=== PATIENT | male | born 1960 | race Caucasian/White ===

== ENCOUNTER 2017-12-29 11:37 | Emergency (ER) | payer OTHER ==
[~2017-12-29] VITALS: Ht 185.4 cm; Wt 123.0 kg
[~2017-12-29 11:37] MED LIST: ALLO300T2 PO; ATOR-24 PO; CALCTAB7 PO; CHOL100010 PO; DIVA500T5 PO; DLN/100 PO; DOCU100C31 PO; FURO-85 PO; MULT-506 PO; OXYC1TAB3 PO; POTA-639 PO; TOPI200T6 PO; WARF5TAB90 PO
[2017-12-29 11:45] VITALS: TEMP 37; Ht 185.4 cm; Wt 123.0 kg
[2017-12-29] MEDS ORDERED: ACETAMINOPHEN 325 MG TAB PO STA (12:14)
[2017-12-29] MEDS ORDERED: CHOL100010 PO (12:38)
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
[2017-12-29] MEDS ORDERED: WARF-246 PO (12:42)
[2017-12-29 13:04] LABS: BASO % 0.2 %; BASO ABS # 0.02 K/uL (0-0.2); EOS ABS # 0.09 K/uL (0-0.5); HEMATOCRIT 43.2 % (42-52); HEMOGLOBIN 16.1 g/dL (14.0-18.0); IG# 0.03 K/uL (0.00-0.02); LYMPH % 28.4 %; LYMPH ABS # 2.64 K/uL (1.2-3.4); MEAN CELL VOLUME 94.1 fL (80-100); MEAN CORPUSCULAR HEMOGLOBIN 35.1 pg (25-34); MEAN CORPUSCULAR HGB CONC 37.3 g/dl (32-36); MEAN PLATELET VOLUME 9.5 fL (7.4-10.4); MONO % 11.2 %; MONO ABS # 1.04 K/uL (0.11-0.59); NEUT % 58.9 %; NEUT ABS # 5.49 K/uL (1.4-6.5); PLATELET COUNT 108 K/uL (130-400); RED CELL DISTRIBUTION WIDTH CV 14.5 % (11.5-14.5); RED CELL DISTRIBUTION WIDTH SD 48.8 fL (36.4-46.3); WHITE BLOOD COUNT 9.31 K/uL (4.8-10.8)
[2017-12-29 13:22] LABS: CREATININE 0.97 mg/dl (0.60-1.40)
[2017-12-29 13:23] LABS: ALBUMIN 3.5 gm/dl (3.4-5.0); CALCIUM 8.4 mg/dl (8.5-10.1); POTASSIUM 3.7 mmol/L (3.5-5.1); TOTAL PROTEIN 6.5 gm/dl (6.4-8.2)
--- NOTE | 2017-12-29 14:02 | DIAGNOSTIC IMAGING REPORT ---
CT OF THE ABDOMEN AND PELVIS WITHOUT CONTRAST, STONE PROTOCOL CLINICAL HISTORY: Single kidney, hematuria, on coumadin, urinary symptoms. COMPARISON STUDY: CT of the abdomen and pelvis August 18, 2014 and KUB October 31, 2014. TECHNIQUE: Helical axial images of the abdomen and pelvis were obtained without IV or oral contrast according to renal stone protocol. A dose lowering technique was utilized adhering to the principles of ALARA. FINDINGS: Right lower lung subpleural opacity is unchanged since CT of August 18, 2014 and favors scarring. Note is made of a 4 mm calculus within the lower pole of the left kidney. There are are no ureteral calculi. There is no hydronephrosis. There is minimal left perinephric and periureteral infiltration. There is no evidence for a bowel obstruction. Evaluation of the abdomen and pelvis is suboptimal on this unenhanced exam. The appendix is normal. No abdominal or pelvic lymphadenopathy is present. The right kidney is surgically absent. There is no abnormality within the nephrectomy bed. A 1.4 cm lesion arising from the mid to lower pole of the left kidney measures just above water attenuation. Unenhanced images of liver, spleen, adrenal glands and pancreas are normal. Mild bladder wall thickening is noted. IMPRESSION: 1. 4 mm left renal calculus. No ureteral calculi or hydronephrosis. Minimal left perinephric and periureteral infiltration is nonspecific. Differential constrictions include a recently passed calculus or an infectious process. Findings could be correlated with urinalysis. 2. 1.4 cm left renal lesion which measures just above water attenuation. This is likely benign however a follow-up nonemergent renal ultrasound is recommended. 3. Status post right nephrectomy. No abnormality within the nephrectomy bed. Electronically signed by: Omari Foreman M.D. 12/29/2017 2:00 PM Dictated Date/Time: 12/29/2017 1:50 PM
[2017-12-29] MEDS ORDERED: OXYC1TAB3 PO ×2 (14:09→14:26)
[2017-12-29] MEDS ORDERED: TAMS0.4C38 PO ×3 (14:09→14:29)
[2017-12-29 14:32] VITALS: BP 135/81; PULSE 88; O2SAT 97
--- NOTE | 2017-12-31 15:52 | Pharmacy Progress Note ---
ED Pharmacist Culture FollowUp Date of Service: December 31, 2017. Called patient regarding urine culture throughout the day, received busy signals @ [phone]. Will attempt to call again. Plan to call in prescription for keflex 500 mg BID x 7 days to pharmacy of patient's preference. Case discussed with Dr. Enamorado, who is the prescribing provider.
== END 2017-12-29 14:35 | disposition home or self-care (01) ==
LOC: C.EDB 11:39 → C.EDA 14:35
DX: N20.0 Calculus of kidney (principal); R79.1 Abnormal coagulation profile; D69.6 Thrombocytopenia, unspecified; R03.0 Elevated blood-pressure reading, without diagnosis of hypertension; M79.89 Other specified soft tissue disorders; R73.03 Prediabetes; Z90.5 Acquired absence of kidney; Z79.01 Long term (current) use of 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s; Z86.718 Personal history of other venous thrombosis and embolism; Z79.899 Other long term (current) drug therapy; Z88.6 Allergy status to analgesic agent

== ENCOUNTER 2019-09-26 14:26 | Inpatient (IN) ==
[2019-09-26] MEDS ORDERED: ACETAMINOPHEN 1,000 MG/100 ML VIAL IV STA ×2 (14:43→17:21)
[2019-09-26] MEDS ORDERED: SODIUM CHLORIDE 0.9% 1000ML 1,000 ML IV SCH (14:45)
--- NOTE | 2019-09-26 15:07 | Emergency Department Note ---
History of Present Illness General Chief complaint: Lethargic Stated complaint: COUGHING UP GREEN PHLEM, LETHARGIC, DARK URINE Time Seen by Provider: 09/26/19 14:34 History of Present Illness Maximum Pain Intensity: 5 This 58-year-old male presents the ER with family members with chief complaint of confusion, cough. The family member states that the patient started with coughing on Saturday but did not have any fever or body aches. Yesterday he was seen at [facility] since they thought that his mental status had slightly changed and his cough was worse. They told him that it was viral. They did not do any testing. Today the symptoms have gotten worse. He is more confused. He is still coughing up green phlegm. He denies any ear pain or sore throat. The patient does admit to some dysuria and frequency of urination. He denies any hematuria. The patient needed the help of both his family members in order to get into the car to come to the emergency room. Home Medications Home Medications Medication Instructions Recorded Confirmed Type allopurinol 150 mg PO DAILY 09/26/19 09/26/19 History atorvastatin 80 mg PO DAILY 09/26/19 09/26/19 History divalproex 1,000 mg PO BID 09/26/19 09/26/19 History divalproex 500 mg PO DAILY@1500 09/26/19 09/26/19 History furosemide 20 mg PO DAILY 09/26/19 09/26/19 History linagliptin [Tradjenta] 5 mg PO DAILY 09/26/19 09/26/19 History multivitamin [Tab-A-Rory] 1 tab PO DAILY 09/26/19 09/26/19 History phenytoin sodium extended 400 mg PO BID 09/26/19 09/26/19 History [Dilantin Extended] potassium chloride 20 meq PO DAILY 09/26/19 09/26/19 History topiramate 200 mg PO BID 09/26/19 09/26/19 History warfarin 5 mg PO UD 09/26/19 09/26/19 History Allergies Allergy/AdvReac Type Severity Reaction Status Date / Time indomethacin AdvReac Severe SEIZURE Verified 09/26/19 14:52 Past Med/Surg History Medical History (Updated 09/26/19 @ 17:28 by Vero Craig) 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 (Inactive) Seizures (Inactive) Surgical History (Updated 09/26/19 @ 15:02 by Vero Craig) Hx of knee surgery Social History Preferred Language: Bulgarian Feels Safe at Home: Yes Smoking Status: Never smoker Review of Systems A total of 10 systems reviewed and were otherwise negative Physical Exam Vital Signs Vital Signs - 24 hr 09/26/19 14:29 09/26/19 14:54 Temperature 37.1 C Temperature Source Oral Pulse Rate 100 H Respiratory Rate 16 Respiratory Effort / Characteristics Non-Labored Spontaneous Respiratory Depth Normal Blood Pressure 158/94 H Blood Pressure Mean 115 Blood Pressure Position Sitting Pulse Oximetry 98 97 Oxygen Delivery Method Room Air Room Air Sepsis Recent Fever Within 48 Hours No Sepsis New/Unexplained Change in Mental Status No Sepsis Action Taken by Nursing No Action Required PHYSICAL EXAM: Vital Signs were reviewed: Reviewed Nurse's notes and agree. Oxygen saturation is 98 % on room air which is normal . GENERAL: 58-year-old male appears lethargic but in no acute distress. MENTAL STATUS: Patient appears very lethargic and only answers questions intermittently EARS: Canals clear. TMs good light reflex, no erythema or fluid level noted. NOSE: Nasal mucosa with moderate erythema engorgement. PHARYNX: No erythema, no edema noted. No exudate noted. Airway is adequate. SINUSES: Patient is tender to palpation over the maxillary sinuses, frontal nontender. NECK: Supple, non-tender. No lymphadenopathy noted. LUNGS: Clear to auscultation without wheezes rales or rhonchi. CARDIAC: Regular rate and rhythm without murmur. ABDOMEN: Positive bowel sounds all 4 quadrants soft, generalized tenderness to palpation throughout. No organomegaly or masses noted. SKIN: No rashes noted. Course Administered Medications Discontinued Medications Sodium Chloride (Nss 1000ml) 1,000 mls @ 999 mls/hr IV .Q1H1M SUSANA Stop: 09/26/19 15:45 Last Infusion: 09/26/19 16:47 Dose: 0 mls/hr Documented by: [id number] Admin: 09/26/19 15:44 Dose: 999 mls/hr Documented by: [id number] Acetaminophen (Ofirmev) 1,000 mg in 100 mls @ 400 mls/hr IV NOW STA Stop: 09/26/19 14:57 Last Infusion: 09/26/19 16:05 Dose: 0 mls/hr Documented by: [id number] Admin: 09/26/19 15:44 Dose: 400 mls/hr Documented by: [id number] Medical Decision Making Differential Diagnosis UTI, pyelonephritis, sepsis, influenza Medical Records Attestation: I reviewed the patient's medical records. Home Medications Current Medication List: was personally reviewed by me Laboratory Data Attestation: I reviewed the patient's lab results. Result diagrams: 09/26/19 15:30 09/26/19 15:30 Lab Results 09/26/19 09/26/19 09/26/19 Range/Units 15:00 15:30 15:30 WBC 9.13 (4.8-10.8) K/uL RBC 4.46 L (4.7-6.1) M/uL Hgb 15.6 (14.0-18.0) g/dL Hct 43.1 (42-52) % MCV 96.6 (80-100) fL MCH 35.0 H (25-34) pg MCHC 36.2 H (32-36) g/dL RDW Std Deviation 49.6 H (36.4-46.3) fL RDW Coeff of Pepper 14.1 (11.5-14.5) % Plt Count 104 L (130-400) K/uL MPV 9.9 (7.4-10.4) fL Immature Gran % (Auto) 0.4 % Neut % (Auto) 68.0 % Lymph % (Auto) 20.5 % [place] % (Auto) 10.2 % Eos % (Auto) 0.7 % Baso % (Auto) 0.2 % Immature Gran # (Auto) 0.04 H (0.00-0.02) K/uL Neut # (Auto) 6.21 (1.4-6.5) K/uL Lymph # (Auto) 1.87 (1.2-3.4) K/uL [place] # (Auto) 0.93 H (0.11-0.59) K/uL Eos # (Auto) 0.06 (0-0.5) K/uL Baso # (Auto) 0.02 (0-0.2) K/uL Sodium 139 (136-145) mmol/L Potassium 3.9 (3.5-5.1) mmol/L Chloride 111 H (98-107) mmol/L Carbon Dioxide 22 (21-32) mmol/L Anion Gap 6.0 (3-11) BUN 15 (7-18) mg/dl Creatinine 1.13 (0.6-1.4) mg/dl Est Cr Clr Drug Dosing Not Reportable Est GFR ( Amer) 81.4 Est GFR (Non-Af Amer) 70.3 BUN/Creatinine Ratio 12.9 (10-20) Glucose 315 H* (70-99) mg/dl Lactate Calcium 8.5 (8.5-10.1) mg/dl Total Bilirubin 0.3 (0.2-1) mg/dl AST 16 (15-37) U/L ALT 23 (12-78) U/L Alkaline Phosphatase 100 (45-117) U/L Total Protein 7.0 (6.4-8.2) gm/dl Albumin 3.2 L (3.4-5.0) gm/dl Globulin 3.8 (2.5-4.0) gm/dl Albumin/Globulin Ratio 0.8 L (0.9-2) Beta-Hydroxybutyric Acd (0.2-2.81) mg/dl Specimen Hemolysis Urine Color Urine Appearance (Clear) Urine pH (4.5-7.5) Ur Specific [place] (1.000-1.030) Urine Protein (Negative) Urine Glucose (UA) (Negative) Urine Ketones (Negative) Urine Blood (Negative) Urine Nitrite (Negative) Urine Bilirubin (Negative) Urine Urobilinogen (Negative) Ur Leukocyte Esterase (Negative) Urine WBC (Auto) (0-5) /hpf Urine RBC (Auto) (0-4) /hpf U Hyaline Cast (Auto) (0-5) /lpf U Epithel Cells (Auto) (0-5) /lpf Urine Bacteria (Auto) (Negative) Influenza Type A Ag Neg for Influ A (Neg) Influenza Type B Ag Neg for Influ B (Neg) 09/26/19 09/26/19 Range/Units 15:53 Unknown WBC (4.8-10.8) K/uL RBC (4.7-6.1) M/uL Hgb (14.0-18.0) g/dL Hct (42-52) % MCV (80-100) fL MCH (25-34) pg MCHC (32-36) g/dL RDW Std Deviation (36.4-46.3) fL RDW Coeff of Pepper (11.5-14.5) % Plt Count (130-400) K/uL MPV (7.4-10.4) fL Immature Gran % (Auto) % Neut % (Auto) % Lymph % (Auto) % [place] % (Auto) % Eos % (Auto) % Baso % (Auto) % Immature Gran # (Auto) (0.00-0.02) K/uL Neut # (Auto) (1.4-6.5) K/uL Lymph # (Auto) (1.2-3.4) K/uL [place] # (Auto) (0.11-0.59) K/uL Eos # (Auto) (0-0.5) K/uL Baso # (Auto) (0-0.2) K/uL Sodium (136-145) mmol/L Potassium (3.5-5.1) mmol/L Chloride (98-107) mmol/L Carbon Dioxide (21-32) mmol/L Anion Gap (3-11) BUN (7-18) mg/dl Creatinine (0.6-1.4) mg/dl Est Cr Clr Drug Dosing Est GFR ( Amer) Est GFR (Non-Af Amer) BUN/Creatinine Ratio (10-20) Glucose (70-99) mg/dl Lactate Cancelled Calcium (8.5-10.1) mg/dl Total Bilirubin (0.2-1) mg/dl AST (15-37) U/L ALT (12-78) U/L Alkaline Phosphatase (45-117) U/L Total Protein (6.4-8.2) gm/dl Albumin (3.4-5.0) gm/dl Globulin (2.5-4.0) gm/dl Albumin/Globulin Ratio (0.9-2) Beta-Hydroxybutyric Acd (0.2-2.81) mg/dl Specimen Hemolysis Urine Color Yellow Urine Appearance Clear (Clear) Urine pH 8.0 H (4.5-7.5) Ur Specific [place] 1.020 (1.000-1.030) Urine Protein 2+ H (Negative) Urine Glucose (UA) 3+ H (Negative) Urine Ketones Negative (Negative) Urine Blood Negative (Negative) Urine Nitrite Negative (Negative) Urine Bilirubin Negative (Negative) Urine Urobilinogen Negative (Negative) Ur Leukocyte Esterase Negative (Negative) Urine WBC (Auto) 0 (0-5) /hpf Urine RBC (Auto) 0-4 (0-4) /hpf U Hyaline Cast (Auto) 1-5 (0-5) /lpf U Epithel Cells (Auto) 0-5 (0-5) /lpf Urine Bacteria (Auto) Negative (Negative) Influenza Type A Ag (Neg) Influenza Type B Ag (Neg) Imaging Data Attestation: I personally reviewed and interpreted this imaging study as follows: My Impression: Chest x-ray revealed no acute infiltrate CT the head revealed no acute intracranial abnormality Radiologist's Impression: XR chest 1V portable CLINICAL HISTORY: Altered mental status/cough COMPARISON STUDY: 10/28/2014 FINDINGS: The bones soft tissues and hemidiaphragms are normal. The cardiomediastinal silhouette is normal. The lungs are clear. The pulmonary vasculature is normal. Poor inspiratory volumes creating some crowding of the basilar lung markings IMPRESSION: Negative chest. ACT 112: Negative or not required by law. The above report was generated using voice recognition software. It may contain grammatical, syntax or spelling errors. Electronically signed by: Og Craig M.D. 09/26/2019 4:04 PM Dictated: 09/26/19 1603 Transcribed: 09/26/[address] head/brain wo con CT DOSE: 2160.68 mGy.cm HISTORY: Mental status change Altered mental status TECHNIQUE: Multiaxial CT images of the head were performed without the use of intravenous contrast. A dose lowering technique was utilized adhering to the principles of ALARA. Comparison: None. Findings: The paranasal sinuses and mastoid air cells are clear. The calvarium and skull base are intact. The ventricles and sulci are within normal limits. There is no mass, hematoma, midline shift, or acute infarct. Impression: No acute intracranial abnormality. ACT 112: Negative or not required by law. The above report was generated using voice recognition software. It may contain grammatical, syntax or spelling errors. Electronically signed by: Og Craig M.D. 09/26/2019 4:51 PM Blood Pressure Blood Pressure Findings: Elevated blood pressure Blood Pressure Disposition: elevated BP felt to be situational MDM Narrative The patient was evaluated. IV access was obtained. The patient was placed on a cardiac technologist and continuous pulse ox. The patient was given 1 L normal saline wide open. The patient was given Tylenol 1 g IV. CBC and differential, renal profile, LFTs, blood cultures, urinalysis was ordered. Chest x-ray was ordered interpreted by the radiologist and myself as above without any acute findings. Labs are reviewed. White count was normal at 9.3 remainder of CBC was unremarkable. The patient's glucose was elevated at 315. BUN was 15 and creatinine was 1.13. LFTs were normal. Urinalysis revealed 3+ glucose but no evidence of infection with blood, nitrates or leukocytes or bacteria. Rapid influenza was negative for influenza A and influenza B. The patient remained very confused therefore a CT of the head was ordered interpreted by the radiologist and myself as above without any acute findings. The patient was independently evaluated by Dr. Quinones who agreed with treatment plan. The hospitalist was consulted for admission. Impression & Plan Weakness, Altered mental status, 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 Discharge Plan Visit Data Chief Complaint: Lethargic Stated Complaint: COUGHING UP GREEN PHLEM, LETHARGIC, DARK URINE ED Provider: Giorgio Quinones ED Midlevel Provider: Vero Craig Discharge Problem: Weakness, Altered mental status, 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 Patient Disposition: Being Evaluated by Hospitalist Forms Stand Alone Forms: My [facility] Prescriptions Prescriptions: No Action multivitamin [Tab-A-Rory] Tablet 1 tab PO DAILY RF: 0 atorvastatin 80 mg tablet 80 mg PO DAILY RF: 0 phenytoin sodium extended [Dilantin Extended] 100 mg capsule 400 mg PO BID RF: 0 divalproex 500 mg tablet,delayed release (DR/EC) 1,000 mg PO BID RF: 0 divalproex 500 mg tablet,delayed release (DR/EC) 500 mg PO DAILY@1500 RF: 0 potassium chloride 20 mEq tablet,ER particles/crystals 20 meq PO DAILY RF: 0 warfarin 5 mg tablet 5 mg PO UD RF: 0 allopurinol 300 mg tablet 150 mg PO DAILY RF: 0 topiramate 200 mg tablet 200 mg PO BID RF: 0 furosemide 20 mg tablet 20 mg PO DAILY RF: 0 Tradjenta 5 mg tablet 5 mg PO DAILY RF: 0 Referrals Referrals: Fab Arroyo MD [Primary Care Provider] -
[2019-09-26 15:41] LABS: Hematocrit (blood only) 43.1 % (42-52); Hemoglobin 15.6 g/dL (14.0-18.0); Mean Corpuscular Hgb Conc 36.2 g/dL (32-36); Mean Corpuscular Volume 96.6 fL (80-100); Mean Platelet Volume 9.9 fL (7.4-10.4); Platelet Count 104 K/uL (130-400); RDW Coefficient of Variation 14.1 % (11.5-14.5); RDW Standard Deviation 49.6 fL (36.4-46.3); Red Blood Count 4.46 M/uL (4.7-6.1); White Blood Count 9.13 K/uL (4.8-10.8)
--- NOTE | 2019-09-26 16:05 | XRay Report ---
XR chest 1V portable CLINICAL HISTORY: Altered mental status/cough COMPARISON STUDY: 10/28/2014 FINDINGS: The bones soft tissues and hemidiaphragms are normal. The cardiomediastinal silhouette is n ormal. The lungs are clear. The pulmonary vasculature is normal. Poor inspiratory volumes creating so me crowding of the basilar lung markings IMPRESSION: Negative chest. ACT 112: Negative or not required by law. The above report was generated using voice recognition software. It may contain grammatical, syntax or spelling errors. Electronically signed by: Og Craig M.D. 09/26/2019 4:04 PM
[2019-09-26 16:06] LABS: Basophils # (auto) 0.02 K/uL (0-0.2); Basophils % (auto) 0.2 %; Eosinophils # (auto) 0.06 K/uL (0-0.5); Eosinophils % (auto) 0.7 %; Immature Granulocytes # (auto) 0.04 K/uL (0.00-0.02); Immature Granulocytes % (auto) 0.4 %; Lymphocytes # (auto) 1.87 K/uL (1.2-3.4); Lymphocytes % (auto) 20.5 %; Monocytes # (auto) 0.93 K/uL (0.11-0.59); Monocytes % (auto) 10.2 %; Neutrophils # (auto) 6.21 K/uL (1.4-6.5)
[2019-09-26 16:11] LABS: Alanine Aminotransferase 23 U/L (12-78); Albumin Globulin Ratio 0.8 (0.9-2); Albumin Level 3.2 gm/dl (3.4-5.0); Alkaline Phosphatase 100 U/L (45-117); Aspartate Aminotransferase 16 U/L (15-37); BUN Creatinine Ratio 12.9 (10-20); Bilirubin,Total 0.3 mg/dl (0.2-1); Blood Urea Nitrogen 15 mg/dl (7-18); Calcium 8.5 mg/dl (8.5-10.1); Carbon Dioxide 22 mmol/L (21-32); Chloride 111 mmol/L (98-107); Est GFR (African American) 81.4; Est GFR (Non-African American) 70.3; Globulin 3.8 gm/dl (2.5-4.0); Glucose 315 mg/dl (70-99); Potassium 3.9 mmol/L (3.5-5.1); Sodium 139 mmol/L (136-145)
[2019-09-26 16:11] LABS: Appearance Urine Clear (Clear); Bacteria Urine Automated Negative (Negative); Bilirubin Urine Negative (Negative); Blood Urine Negative (Negative); Color Urine Yellow; Epithelial Cell Urine Auto 0-5 /lpf (0-5); Glucose Urine UA 3+ (Negative); Ketones Urine Negative (Negative); Leukocyte Esterase Urine Negative (Negative); Nitrite Urine Negative (Negative); Protein Urine 2+ (Negative); RBC Urine Automated 0-4 /hpf (0-4); Urobilinogen Urine Negative (Negative); WBC Urine Automated 0 /hpf (0-5)
[2019-09-26 16:13] LABS: Sulfosalicylic Acid Urine Positive (Negative)
--- NOTE | 2019-09-26 16:52 | CT Scan Report ---
CT head/brain wo con CT DOSE: 2160.68 mGy.cm HISTORY: Mental status change Altered mental status TECHNIQUE: Multiaxial CT images of the head were performed without the use of intravenous contrast. A dose lowering technique was utilized adhering to the principles of ALARA. Comparison: None. Findings: The paranasal sinuses and mastoid air cells are clear. The calvarium and skull base are int act. The ventricles and sulci are within normal limits. There is no mass, hematoma, midline shift, or acute infarct. Impression: No acute intracranial abnormality. ACT 112: Negative or not required by law. The above report was generated using voice recognition software. It may contain grammatical, syntax or spelling errors. Electronically signed by: Og Craig M.D. 09/26/2019 4:51 PM
--- NOTE | 2019-09-26 17:06 | Emergency Department Note ---
ED Visit Note Patient was seen and evaluated at the bedside w/ Amisha Craig PA-C . Please see their note for history, physical, details, and disposition. Patient has had some waxing waning mental status issues. Blood work is fairly unremarkable but does have elevated blood glucose without anion gap. Does not appear to be in DKA. CT the head and chest x-ray are negative. EKG does not appear to show any obvious arrhythmia. Patient was subsequently admitted to the medicine service. . : Altered mental status Qualifiers: Altered mental status type: unspecified Qualified Code(s): R41.82 - Altered mental status, unspecified
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
--- NOTE | 2019-09-26 18:21 | Electrocardiogram Report ---
Test Reason : Blood Pressure : / mmHG Vent. Rate : 088 BPM Atrial Rate : 088 BPM P-R Int : 156 ms QRS Dur : 090 ms QT Int : 394 ms P-R-T Axes : 044 055 051 degrees QTc Int : 476 ms Normal sinus rhythm Normal ECG When compared with ECG of 28-OCT-2014 19:30, No significant change was found Confirmed by Kristian Morrissey ([id number]) on 09/26/2019 6:20:40 PM Referred By: REFERRED SELF Confirmed By:Rodri Morrissey
[2019-09-26 19:29] LABS: INR 2.1 (0.9-1.1)
[2019-09-26] MEDS ORDERED: GLUCOSE 40% GEL 15 GM TUBE PO PRN (19:59)
[2019-09-26] MEDS ORDERED: GUAIFENESIN/DEXTROM SYRUP 200MG/20MG 10ML UDC PO PRN (19:59)
[2019-09-26] MEDS ORDERED: MAGNESIUM HYDROXIDE SUSP 30 ML UDC PO PRN (19:59)
[2019-09-26] MEDS ORDERED: POLYETHYLENE (MIRALAX) 17 GM PACK PO PRN (19:59)
[2019-09-26] MEDS ORDERED: GLUCAGON FOR INJ 1 MG VIAL SQ PRN (19:59)
[2019-09-26] MEDS ORDERED: GLUCOSE 10 TABS/TUBE PO PRN (19:59)
[2019-09-26] MEDS ORDERED: DEXTROSE 50% 50 ML SYRINGE IV PRN (19:59)
[2019-09-26] MEDS ORDERED: ONDANSETRON INJ 2 MG/ML 2 ML VIAL IV PRN (19:59)
[2019-09-26] MEDS ORDERED: ALUMINUM/MAGNESIUM SUSP 30 ML UDC PO PRN (19:59)
[2019-09-26] MEDS ORDERED: ALBUTEROL 0.083% NEBU SOLN 3 ML VIAL NEB PRN (19:59)
[2019-09-26] MEDS ORDERED: CARBOHYDRATES FOR HYPOGLYCEMIA PO PRN (19:59)
[2019-09-26 20:07] LABS: Phenytoin (Dilantin) 20.4 mcg/ml (10-20)
[2019-09-26 20:21] LABS: Base Excess ABG -1.9 mEq/L (-9-1.8); HCO3 ABG 19 mmol/L (19-24); Oxygen Saturation ABG 97.7 % (90-95); PCO2 ABG 25 mmHg (35-46); PO2 ABG 92 mmHg (80-95)
[2019-09-26 20:29] LABS: pH ABG 7.51 (7.35-7.45)
[2019-09-26 20:30] LABS: Allen Test Pos (Pos)
[2019-09-26 20:53] LABS: Thyroid Stimulating Hormone 2.16 uIu/ml (0.300-4.500)
[2019-09-26] MEDS: SODIUM CHLORIDE 0.9% 1000ML 1,000 ML IV SCH (20:57)
[2019-09-26] MEDS: WARFARIN SOD 5 MG TAB PO SCH ×2 (20:57→21:45)
[2019-09-26] MEDS: DOCUSATE SODIUM 100 MG CAP PO SCH ×2 (20:58→21:45)
[2019-09-26] MEDS: TOPIRAMATE 100 MG TAB PO SCH ×2 (20:59→21:46)
[2019-09-26] MEDS: PHENYTOIN SODIUM ER 100 MG CAP PO SCH ×2 (20:59→21:45)
[2019-09-26] MEDS: TAMSULOSIN HCL 0.4 MG CAP PO SCH ×2 (20:59→21:46)
[2019-09-26] MEDS: DIVALPROEX DELAY RELEASE 500 MG TAB PO SCH ×2 (20:59→21:45)
[2019-09-26] MEDS ORDERED: INSULIN ASPART 100 UNITS/ML 3 ML PEN SC SCH (21:00)
[2019-09-26] MEDS: INSULIN GLARGINE SOLOSTAR 100 UNITS/ML 3 ML PEN SC SCH (21:01)
[2019-09-26] MEDS ORDERED: LACTULOSE SYRUP 30 GM/45 ML UDP PO STA (21:44)
[2019-09-26 23:30] LABS: Amphetamines+Metham, Urine Neg (Neg); Barbiturates, Urine Neg (Neg); Benzodiazepine, Urine Neg (Neg); Cocaine, Urine Neg (Neg); MDMA (Ecstacy), Urine Neg (Neg); Methadone, Urine Neg (Neg); Opiate, Urine Neg (Neg); Phencyclidine, Urine Neg (Neg)
[2019-09-26] MEDS ORDERED: PIPERACILL/TAZOBAC CONSULT ACTIVE PRN (23:51)
[2019-09-27] MEDS: LACTULOSE 200 GM, WATER, STERILE IRRIG 700 ML, BARCODE IDENTIFIER 1 EA PR SCH ×5 (00:12→23:01)
[2019-09-27] MEDS: VALPROATE SOD 1,000 MG in DEXTROSE 5% 50 ML IV SCH ×3 (00:13→20:30)
[2019-09-27] MEDS: SODIUM CHLORIDE 0.9% 10ML FLUSH IV SCH ×3 (00:13→20:31)
[2019-09-27] MEDS: PHENYTOIN IV SCH ×3 (00:14→20:30)
[2019-09-27] MEDS: SODIUM CHLORIDE 0.9% 1000ML 1,000 ML IV SCH (00:14)
--- NOTE | 2019-09-27 00:35 | Procedure Note ---
Procedure Note Date of Service September 27, 2019 Note ENDURANCE CATHETER PROCEDURE NOTE: Procedure: Trial Management Associate Indwelling Peripherally Inserted IV Catheter Placement Attending: Dr. Arya Ulrich Provider: KIYA Sanchez Indication: Need for IV Access, Poor Vascular Access Anesthesia: Lidocaine 1% Unable to obtain verbal consent from patient due to altered mental status. A time-out was completed verifying correct patient, procedure, site, positioning, and implant(s) or special equipment if applicable. Utilizing bedside ultrasound, vascularity of the left upper extremity was assessed. Vessel size was noted for appropriate catheter selection and skin was marked with gentle pressure. Patients left upper extremity was prepped and draped in the usual sterile fashion utilizing chlorhexidine. Ultrasound guidance was used to aid needle placement. A 18 g Endurance Catheter was introduced into the left brachial vein under direct ultrasound guidance. Guide wire was easily deployed without resistance. Catheter was threaded over the guide wire without resistance and the entire apparatus was removed intact. Good venous blood return was noted in the catheter. The IV catheter was easily flushed with sterile saline flush. Sterile clave was attached to the end of the catheter and good blood return was again noted. Tourniquet was released. StatLock device and sterile dressing were applied. The patient tolerated the procedure well. Blood Loss: Minimal Complications: None Procedural Ultrasound Guidance: Procedure Date: 09/27/2019 Indication: Poor Vascular Access Attending: Dr. Arya Ulrich Povider: KIYA Sanchez Artery/Veins Identified: YES Access confirmed in Vein with ultrasound: YES Complications: NONE Patient tolerated procedure: WELL Coding
[2019-09-27] MEDS ORDERED: VANCOMYCIN CONSULT ACTIVE PRN (03:17)
[2019-09-27] MEDS ORDERED: CONSULT PHARMACY PRN (03:22)
[2019-09-27] MEDS ORDERED: VANCOMYCIN HCL 1,000 MG in SODIUM CHLORIDE 0.9% 250 ML IV SCH (03:30)
[2019-09-27] MEDS ORDERED: ACYCLOVIR CONSULT ACTIVE PRN (03:30)
[2019-09-27] MEDS ORDERED: VANCOMYCIN HCL 2,750 MG in SODIUM CHLORIDE 0.9% 500 ML IV SCH (03:30)
[2019-09-27] MEDS ORDERED: CEFEPIME CONSULT ACTIVE PRN (03:34)
[2019-09-27] MEDS: ACYCLOVIR SOD 800 MG in DEXTROSE 5% 250 ML IV SCH ×3 (04:05→20:30)
[2019-09-27] MEDS ORDERED: PIPERACILLIN/TAZOBACTAM 4.5 GM in DEXTROSE 5% 100 ML IV SCH ×2 (06:00)
[2019-09-27] MEDS ORDERED: Nursing to Pharmacy Communication ONE (06:03)
[2019-09-27] MEDS: INSULIN ASPART 100 UNITS/ML 3 ML PEN SC SCH ×3 (06:37→17:53)
[2019-09-27 07:50] LABS: Hematocrit (blood only) 41.6 % (42-52); Mean Corpuscular Hgb Conc 36.1 g/dL (32-36); Mean Corpuscular Volume 97.2 fL (80-100); Mean Platelet Volume 9.9 fL (7.4-10.4); Platelet Count 100 K/uL (130-400); RDW Coefficient of Variation 14.1 % (11.5-14.5); RDW Standard Deviation 50.1 fL (36.4-46.3); Red Blood Count 4.28 M/uL (4.7-6.1); White Blood Count 9.25 K/uL (4.8-10.8)
[2019-09-27 07:51] LABS: INR 1.9 (0.9-1.1); Prothrombin Time 18.8 Seconds (9.0-12.0)
[2019-09-27 08:04] LABS: Albumin Globulin Ratio 0.7 (0.9-2); Albumin Level 2.7 gm/dl (3.4-5.0); BUN Creatinine Ratio 10.5 (10-20); Bilirubin,Total 0.5 mg/dl (0.2-1); Calcium 8.2 mg/dl (8.5-10.1); Creatinine Clr Calc Pharmacy 113.7 ml/min; Est GFR (African American) 101.7; Est GFR (Non-African American) 87.8; Globulin 3.7 gm/dl (2.5-4.0); Potassium 3.1 mmol/L (3.5-5.1); Total Protein 6.4 gm/dl (6.4-8.2)
[2019-09-27] MEDS ORDERED: CEFEPIME 2,000 MG in SYRINGE 7.5 ML IV SCH (09:00)
[2019-09-27] MEDS ORDERED: LACTULOSE SYRUP 30 GM/45 ML UDP PO SCH (09:00)
--- NOTE | 2019-09-27 09:09 | Pharmacy Report ---
Pharmacy Abx Initial Consult - Date of Service September 27, 2019 - Pharmacy Dosing Scope Date of Consult: 09/27/2019 Consultation requested by: Dr. You Pharmacy is consulted to initiate Vancomycin + Acyclovir IV dosing therapy, order appropriate labs and adjust drug dose/frequency. - Subjective The patient is a 58 year old M admitted on 09/26/19 17:55. - Objective Height: 6 ft 1 in Weight: 120.6 kg Vital Signs (Past 12hrs): Vital Signs Temp Pulse Resp BP Pulse Ox 09/27/19 08:17 37.7 C H 104 H 20 147/77 H 9 L 09/27/19 04:00 37.1 C 107 H 20 152/85 H 97 09/26/19 23:00 37.7 C H 103 H 20 172/85 H 100 Lab Results (24hrs): Laboratory Tests (24 Hours) 09/27/19 09/27/19 09/26/19 07:09 07:09 20:05 WBC 9.25 Neut # (Auto) Creatinine 0.94 Est Cr Clr Drug Dosing 113.7 Total Creatine Kinase 99 09/26/19 09/26/19 15:30 15:30 WBC 9.13 Neut # (Auto) 6.21 Creatinine 1.13 Est Cr Clr Drug Dosing Not Reportable Total Creatine Kinase Micro Results: 09/26/19 15:53 Aerobic Blood Culture - Pending Blood Anaerobic Blood Culture - Pending 09/26/19 15:30 Aerobic Blood Culture - Pending Blood Anaerobic Blood Culture - Pending - Risk Factors for Resistance * None - Assessment & Plan Assessment 58 year old M admitted on 09/26/2019 secondary to altered mental status * PMHx significant for T2DM, Seizure disorder, h/o nephrectomy * Initially patient was afebrile and infectious etiology was unlikely, also presented with hyperammonemia * However, patient began spiking fevers leading to suspicion for possible meningitis * Patient is febrile at 37.7C, WBCs 9.3K, SCr 0.94 (unknown baseline) * Pharmacy is consulted to manage Vancomycin and Acyclovir, patient also receiving Ceftriaxone and Ampicillin Plan IV Vancomycin + Acyclovir + Ceftriaxone + Ampicillin for empiric treatment of possible meningitis Vancomycin IV * Estimated PK Parameters: Vd 0.58 L/kg, Mandeep 0.099 hr-1, t1/2 ~7 hr * Loading dose: 2750 mg (~22 mg/kg) * Maintenance dose: 1750 mg IV (~15 mg/kg) every 10 hours * Goal trough: 15 to 20 mcg/mL * Trough level ordered for 09/28/2019 at 0930 Acyclovir * 800 mg IV every 8 hours [10 mg/kg based on ideal body weight (79.9 kg)] * Dosing appropriate for indication Ceftriaxone * 2 g IV every 12 hours * Dosing appropriate for indication Ampicillin * 2 g IV every 4 hours * Dosing appropriate for indication Pharmacy will continue to follow and will adjust dose/frequency as necessary. Thank you.
--- NOTE | 2019-09-27 09:14 | Hospitalist Progress Note ---
Date of Service September 27, 2019 Assessment & Plan (1) Altered mental status: (2) Weakness: Review of outpatient records showed the patient was seen 2 days ago at PCPs office for viral upper respiratory infection and was being treated with supportive care Now presents with altered mental status CT head is negative for any acute abnormality However extensive work-up reviewed elevated ammonia level. My assessment is that patient likely has meningoencephalitis based on history and physical exam. Will benefit from MRI brain and lumbar puncture. IR lumbar puncture by fluoroscopy ordered. Patient INR is therapeutic as he was on Coumadin. 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 Continue to monitor neurological status. Discussed patient with neurologist Dr. Caballero Elevated ammonia level could be due to valproate. However, patient has been on this medication for a while We will continue lactulose MO for now and monitor ammonia level which is curren tly decreasing (3) Seizure disorder: hx of generalized tonic-clonic seizures Followed [facility] neurology [place] in the past, but has been relatively sta ble for several years on Dilantin and Depakote Neurologist recommendations appreciated. Get EEG (4) T2DM (type 2 diabetes mellitus): With hyperglycemia Last A1c 8.2 on 08/03/2019 Continue to hold Tradjenta Continue Lantus and NovoLog per protocol to optimize glycemic control (5) Gout: (6) HLD (hyperlipidemia): Continue statin (7) 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 (deep vein thrombosis): Coumadin held for now. INR is 1.9 Changed to subcutaneous Lovenox for possible LP Admission and Anticipated Discharge Date Admission Date: September 26, 2019 Subjective Patient is lethargic and confused. Unable to obtain review of system Review of Systems Review of Systems: Unobtainable due to cognitive status Physical Exam Constitutional: + ill appearing; no acute distress Lethargic Eyes: PERRL, conjunctivae normal, anicteric sclerae Respiratory: normal respiratory effort, lungs clear to auscultation Cardiovascular: Rate/Rhythm: regular rate and regular rhythm Extremities: + pedal edema S1 S2 Gastrointestinal (Abdomen): normal bowel sounds, soft, nontender, no hepatosplenomegaly Musculoskeletal: Moves all extremities Neurologic: Lethargic. AOx 1 (person), when asked about place, he stated [facility]. Moves all extremities and follows commands poorly Psychiatric: Orientation: alert AOx1 Results & Data ([facility]) Vital Signs (Past 12 Hours) Vital Signs Temp Pulse Resp BP Pulse Ox 09/27/19 08:17 37.7 C H 104 H 20 147/77 H 9 L 09/27/19 04:00 37.1 C 107 H 20 152/85 H 97 09/26/19 23:00 37.7 C H 103 H 20 172/85 H 100 Laboratory Results Abnormal lab results 09/26/19 09/26/19 09/26/19 Range/Units 15:30 15:30 15:33 RBC 4.46 L (4.7-6.1) M/uL Hct (42-52) % MCH 35.0 H (25-34) pg MCHC 36.2 H (32-36) g/dL RDW Std Deviation 49.6 H (36.4-46.3) fL Plt Count 104 L (130-400) K/uL Immature Gran # (Auto) 0.04 H (0.00-0.02) K/uL [place] # (Auto) 0.93 H (0.11-0.59) K/uL PT 20.0 H (9.0-12.0) Seconds INR 2.1 H (0.9-1.1) ABG pH (7.35-7.45) ABG pCO2 (35-46) mmHg ABG O2 Saturation (90-95) % Potassium (3.5-5.1) mmol/L Chloride 111 H (98-107) mmol/L Carbon Dioxide (21-32) mmol/L Glucose 315 H* (70-99) mg/dl POC Glucose (70-99) mg/dl Calcium (8.5-10.1) mg/dl Ammonia (11-32) umol/L Albumin 3.2 L (3.4-5.0) gm/dl Albumin/Globulin Ratio 0.8 L (0.9-2) Urine pH (4.5-7.5) Urine Protein (Negative) Urine Glucose (UA) (Negative) Phenytoin (10-20) mcg/ml 09/26/19 09/26/19 09/26/19 Range/Units 19:23 20:05 20:05 RBC (4.7-6.1) M/uL Hct (42-52) % MCH (25-34) pg MCHC (32-36) g/dL RDW Std Deviation (36.4-46.3) fL Plt Count (130-400) K/uL Immature Gran # (Auto) (0.00-0.02) K/uL [place] # (Auto) (0.11-0.59) K/uL PT (9.0-12.0) Seconds INR (0.9-1.1) ABG pH 7.51 H* (7.35-7.45) ABG pCO2 25 L (35-46) mmHg ABG O2 Saturation 97.7 H (90-95) % Potassium (3.5-5.1) mmol/L Chloride (98-107) mmol/L Carbon Dioxide (21-32) mmol/L Glucose (70-99) mg/dl POC Glucose (70-99) mg/dl Calcium (8.5-10.1) mg/dl Ammonia 101.4 H (11-32) umol/L Albumin (3.4-5.0) gm/dl Albumin/Globulin Ratio (0.9-2) Urine pH (4.5-7.5) Urine Protein (Negative) Urine Glucose (UA) (Negative) Phenytoin 20.4 H (10-20) mcg/ml 09/26/19 09/26/19 09/27/19 Range/Units 20:44 Unknown 06:32 RBC (4.7-6.1) M/uL Hct (42-52) % MCH (25-34) pg MCHC (32-36) g/dL RDW Std Deviation (36.4-46.3) fL Plt Count (130-400) K/uL Immature Gran # (Auto) (0.00-0.02) K/uL [place] # (Auto) (0.11-0.59) K/uL PT (9.0-12.0) Seconds INR (0.9-1.1) ABG pH (7.35-7.45) ABG pCO2 (35-46) mmHg ABG O2 Saturation (90-95) % Potassium (3.5-5.1) mmol/L Chloride (98-107) mmol/L Carbon Dioxide (21-32) mmol/L Glucose (70-99) mg/dl POC Glucose 261 H 242 H (70-99) mg/dl Calcium (8.5-10.1) mg/dl Ammonia (11-32) umol/L Albumin (3.4-5.0) gm/dl Albumin/Globulin Ratio (0.9-2) Urine pH 8.0 H (4.5-7.5) Urine Protein 2+ H (Negative) Urine Glucose (UA) 3+ H (Negative) Phenytoin (10-20) mcg/ml 09/27/19 09/27/19 09/27/19 Range/Units 07:09 07:09 07:09 RBC 4.28 L (4.7-6.1) M/uL Hct 41.6 L (42-52) % MCH 35.0 H (25-34) pg MCHC 36.1 H (32-36) g/dL RDW Std Deviation 50.1 H (36.4-46.3) fL Plt Count 100 L (130-400) K/uL Immature Gran # (Auto) 0.03 H (0.00-0.02) K/uL [place] # (Auto) 1.14 H (0.11-0.59) K/uL PT (9.0-12.0) Seconds INR (0.9-1.1) ABG pH (7.35-7.45) ABG pCO2 (35-46) mmHg ABG O2 Saturation (90-95) % Potassium 3.1 L D (3.5-5.1) mmol/L Chloride 116 H (98-107) mmol/L Carbon Dioxide 19 L (21-32) mmol/L Glucose 207 H (70-99) mg/dl POC Glucose (70-99) mg/dl Calcium 8.2 L (8.5-10.1) mg/dl Ammonia 87.7 H (11-32) umol/L Albumin 2.7 L (3.4-5.0) gm/dl Albumin/Globulin Ratio 0.7 L (0.9-2) Urine pH (4.5-7.5) Urine Protein (Negative) Urine Glucose (UA) (Negative) Phenytoin (10-20) mcg/ml 09/27/19 09/27/19 Range/Units 07:09 11:47 RBC (4.7-6.1) M/uL Hct (42-52) % MCH (25-34) pg MCHC (32-36) g/dL RDW Std Deviation (36.4-46.3) fL Plt Count (130-400) K/uL Immature Gran # (Auto) (0.00-0.02) K/uL [place] # (Auto) (0.11-0.59) K/uL PT 18.8 H (9.0-12.0) Seconds INR 1.9 H (0.9-1.1) ABG pH (7.35-7.45) ABG pCO2 (35-46) mmHg ABG O2 Saturation (90-95) % Potassium (3.5-5.1) mmol/L Chloride (98-107) mmol/L Carbon Dioxide (21-32) mmol/L Glucose (70-99) mg/dl POC Glucose 233 H (70-99) mg/dl Calcium (8.5-10.1) mg/dl Ammonia (11-32) umol/L Albumin (3.4-5.0) gm/dl Albumin/Globulin Ratio (0.9-2) Urine pH (4.5-7.5) Urine Protein (Negative) Urine Glucose (UA) (Negative) Phenytoin (10-20) mcg/ml (1) Altered mental status Altered mental status type: unspecified Qualified Code(s): R41.82 - Altered mental status, unspecified
[2019-09-27] MEDS: AMPICILLIN 2,000 MG in SODIUM CHLOR 0.9% AD-VAN 100 ML IV SCH ×3 (09:19→19:39)
[2019-09-27] MEDS: cefTRIAXone SODIUM 2,000 MG in DEXTROSE 5% 50 ML IV SCH ×2 (09:19→20:30)
[2019-09-27] MEDS: INSULIN GLARGINE SOLOSTAR 100 UNITS/ML 3 ML PEN SC SCH ×2 (09:20→23:01)
[2019-09-27] MEDS: ATORVASTATIN 40 MG TAB PO SCH (09:21)
[2019-09-27] MEDS: TOPIRAMATE 100 MG TAB PO SCH ×2 (09:21→20:31)
[2019-09-27] MEDS: allopurinoL 300 MG TAB PO SCH (09:21)
[2019-09-27] MEDS: CHOLECALCIFEROL 1,000 UNITS 25 MCG TAB PO SCH (09:21)
[2019-09-27] MEDS: MULTIVITAMIN TAB PO SCH (09:21)
[2019-09-27 09:27] LABS: Basophils # (auto) 0.02 K/uL (0-0.2); Basophils % (auto) 0.2 %; Eosinophils # (auto) 0.01 K/uL (0-0.5); Eosinophils % (auto) 0.1 %; Immature Granulocytes # (auto) 0.03 K/uL (0.00-0.02); Immature Granulocytes % (auto) 0.3 %; Lymphocytes # (auto) 2.03 K/uL (1.2-3.4); Lymphocytes % (auto) 21.9 %; Monocytes # (auto) 1.14 K/uL (0.11-0.59); Monocytes % (auto) 12.3 %; Neutrophils # (auto) 6.02 K/uL (1.4-6.5); Neutrophils % (auto) 65.2 %
[2019-09-27] MEDS: DOCUSATE SODIUM 100 MG CAP PO SCH ×2 (09:27→20:30)
[2019-09-27] MEDS ORDERED: ENOXAPARIN 1 MG/KG SQ SCH (10:15)
[2019-09-27] MEDS ORDERED: LACTULOSE 200 GM, WATER, STERILE IRRIG 700 ML, BARCODE IDENTIFIER 1 EA PR SCH (10:30)
[2019-09-27] MEDS: ENOXAPARIN INJ 120 MG/0.8 ML SYR SQ SCH (11:54)
[2019-09-27] MEDS: POTASSIUM CHLORIDE / WTR 10 MEQ/100 ML PLCT IV SCH ×2 (12:00→16:40)
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
[2019-09-27] MEDS ORDERED: DIVALPROEX DELAY RELEASE 500 MG TAB PO SCH (15:00)
[2019-09-27] MEDS: VALPROATE SOD 500 MG in DEXTROSE 5% 50 ML IV SCH (15:33)
[2019-09-27] MEDS: VANCOMYCIN HCL 1,750 MG in SODIUM CHLORIDE 0.9% 500 ML IV SCH (16:39)
[2019-09-27] MEDS: UNIT DOSE COMPOUND PR SCH ×2 (17:23→23:02)
[2019-09-27] MEDS: TAMSULOSIN HCL 0.4 MG CAP PO SCH (20:31)
--- NOTE | 2019-09-27 20:52 | Procedure Note ---
Procedure Note Date of Service September 27, 2019 Procedure: Residential Indwelling Peripherally Inserted IV Catheter Placement Attending: Dr. Ulrich APC: Filiberto Encarnacion PA-C Indication: Need for IV Access, Poor Vascular Access Anesthesia: None Verbal consent was obtained from patient prior to performing the procedure. A time-out was completed verifying correct patient, procedure, site, positioning, and implant(s) or special equipment if applicable. Utilizing bedside ultrasound, vascularity of the LEFT upper extremity was assessed. Vessel size was noted for appropriate catheter selection and skin was marked with gentle pressure. Patients LEFT upper extremity was prepped and draped in the usual sterile fashion utilizing chlorhexidine. Ultrasound guidance was used to aid needle placement. A 20 g Endurance Catheter was introduced into the LEFT forearm vein under direct ultrasound guidance. Guide wire was easily deployed without resistance. Catheter was threaded over the guide wire without resistance and the entire apparatus was removed intact. Good venous blood return was noted in the catheter. The IV catheter was easily flushed with sterile saline flush. Sterile clave was attached to the end of the catheter and good blood return was again noted. Tourniquet was released. StatLock device and sterile dressing were applied. The patient tolerated the procedure well. Blood Loss: Minimal Complications: None Procedural Ultrasound Guidance: Procedure Date: 09/27/2019 Indication: Poor Vascular Access Attending: Dr. Ulrich APC: Filiberto Encarnacion PA-C Artery/Veins Identified: YES Access confirmed in Vein with ultrasound: YES Complications: NONE Patient tolerated procedure: WELL Coding CPT Codes Tubes, Drains, and Vasc Access - Tubes, Drains, and Vasc Access: [id number] Venipuncture, Age 1/>Req phys skill, (sep proc), Dx/Tx (not rtn) ([id number]) [facility] [place]arg[place]) Tubes, Drains, and Vasc Access Procedure 1: Tubes, Drains, and Vasc Access: [id number] Venipuncture, Age 1/>Req phys skill, (sep proc), Dx/Tx (not rtn)
--- NOTE | 2019-09-27 20:53 | Procedure Note ---
Procedure Note Date of Service September 27, 2019 Procedure: Prison Indwelling Peripherally Inserted IV Catheter Placement Attending: Dr. Ulrich APC: Filiberto Encarnacion PA-C Indication: Need for IV Access, Poor Vascular Access Anesthesia: None Verbal consent was obtained from patient prior to performing the procedure. A time-out was completed verifying correct patient, procedure, site, positioning, and implant(s) or special equipment if applicable. Utilizing bedside ultrasound, vascularity of the RIGHT upper extremity was assessed. Ve ssel size was noted for appropriate catheter selection and skin was marked with gentle pressure. Patients RIGHT upper extremity was prepped and draped in the usual sterile fashion utilizing chlorhexidine. Ultrasound guidance was used to aid needle placement. A 20 g Endurance Catheter was introduced into the RIGHT Forearm vein under direct ultrasound guidance. Guide wire was easily deployed without resistance. Catheter was threaded over the guide wire without resistance and the entire apparatus was removed intact. Good venous blood return was noted in the catheter. The IV catheter was easily flushed with sterile saline flush. Sterile clave was attached to the end of the catheter and good blood return was again noted. Tourniquet was released. StatLock device and sterile dressing were applied. The patient tolerated the procedure well. Blood Loss: Minimal Complications: None Procedural Ultrasound Guidance: Procedure Date: 09/27/2019 Indication: Poor Vascular Access Attending: Dr. Ulrich APC: Filiberto Encarnacion PA-C Artery/Veins Identified: YES Access confirmed in Vein with ultrasound: YES Complications: NONE Patient tolerated procedure: WELL Coding CPT Codes Tubes, Drains, and Vasc Access - Tubes, Drains, and Vasc Access: [id number] Venipuncture, Age 1/>Req phys skill, (sep proc), Dx/Tx (not rtn) ([id number]) [facility] [place] Procedure Codes (Charges) Tubes, Drains, and Vasc Access Procedure 2: Tubes, Drains, and Vasc Access: [id number] Venipuncture, Age 1/>Req phys skill, (sep proc), Dx/Tx (not rtn)
[2019-09-28] MEDS: ENOXAPARIN INJ 120 MG/0.8 ML SYR SQ SCH ×3 (00:01→22:16)
[2019-09-28] MEDS: AMPICILLIN 2,000 MG in SODIUM CHLOR 0.9% AD-VAN 100 ML IV SCH ×7 (00:01→23:56)
[2019-09-28] MEDS: INSULIN ASPART 100 UNITS/ML 3 ML PEN SC SCH ×5 (00:27→20:53)
[2019-09-28] MEDS: ACETAMINOPHEN 1,000 MG/100 ML VIAL IV PRN ×2 (00:55→09:27)
[2019-09-28] MEDS: SODIUM CHLORIDE 0.9% 1000ML 1,000 ML IV SCH ×4 (04:32→22:19)
[2019-09-28] MEDS: ACYCLOVIR SOD 800 MG in DEXTROSE 5% 250 ML IV SCH ×3 (04:33→21:29)
[2019-09-28] MEDS: UNIT DOSE COMPOUND PR SCH ×3 (06:16→22:18)
[2019-09-28] MEDS: LACTULOSE 200 GM, WATER, STERILE IRRIG 700 ML, BARCODE IDENTIFIER 1 EA PR SCH ×2 (06:17→14:14)
[2019-09-28 07:45] LABS: Hematocrit (blood only) 40.4 % (42-52); Hemoglobin 14.2 g/dL (14.0-18.0); Mean Corpuscular Hemoglobin 34.3 pg (25-34); Mean Corpuscular Hgb Conc 35.1 g/dL (32-36); Mean Corpuscular Volume 97.6 fL (80-100); Mean Platelet Volume 9.8 fL (7.4-10.4); Platelet Count 103 K/uL (130-400); RDW Coefficient of Variation 14.2 % (11.5-14.5); RDW Standard Deviation 50.8 fL (36.4-46.3); Red Blood Count 4.14 M/uL (4.7-6.1); White Blood Count 6.12 K/uL (4.8-10.8)
[2019-09-28] MEDS ORDERED: PHARMACY GLYCEMIC MGMT CONSULT PRN (07:51)
[2019-09-28 07:55] LABS: INR 1.8 (0.9-1.1)
[2019-09-28] MEDS: PHENYTOIN IV SCH ×2 (08:04→21:30)
[2019-09-28] MEDS: SODIUM CHLORIDE 0.9% 10ML FLUSH IV SCH ×2 (08:08→20:45)
[2019-09-28 08:19] LABS: Albumin Level 2.5 gm/dl (3.4-5.0); BUN Creatinine Ratio 9.4 (10-20); Calcium 7.9 mg/dl (8.5-10.1); Creatinine Clr Calc Pharmacy 132.1 ml/min; Est GFR (Non-African American) 96.6; Magnesium 1.8 mg/dl (1.8-2.4)
[2019-09-28 08:22] LABS: Albumin Globulin Ratio 0.7 (0.9-2); Bilirubin,Total 0.3 mg/dl (0.2-1); Globulin 3.6 gm/dl (2.5-4.0); Phosphorus 2.3 mg/dl (2.5-4.9); Total Protein 6.1 gm/dl (6.4-8.2)
[2019-09-28] MEDS: ATORVASTATIN 40 MG TAB PO SCH (08:35)
[2019-09-28] MEDS: DOCUSATE SODIUM 100 MG CAP PO SCH ×2 (08:35→20:47)
[2019-09-28] MEDS: MULTIVITAMIN TAB PO SCH (08:35)
[2019-09-28] MEDS: allopurinoL 300 MG TAB PO SCH (08:35)
[2019-09-28] MEDS: CHOLECALCIFEROL 1,000 UNITS 25 MCG TAB PO SCH (08:35)
[2019-09-28] MEDS: TOPIRAMATE 100 MG TAB PO SCH ×2 (08:35→20:47)
[2019-09-28] MEDS: VALPROATE SOD 1,000 MG in DEXTROSE 5% 50 ML IV SCH ×2 (08:46→21:29)
[2019-09-28 08:49] LABS: Estimated Average Glucose 189 mg/dl; Hemoglobin A1C 8.2 % (4.5-5.6)
[2019-09-28] MEDS ORDERED: INSULIN GLARGINE SOLOSTAR 100 UNITS/ML 3 ML PEN SC ONE ×2 (09:00→21:00)
--- NOTE | 2019-09-28 09:03 | Pharmacy Report ---
Glycemic Control Consultation - Date of Service September 28, 2019 - Scope Scope: Glycemic Pharmacist consulted for glycemic control and to write orders per formerly [facility] inpatient glycemic control protocol - Objective Weight: 120.9 kg Accuchecks BSG (last 24hrs): 09/27/19 09/27/19 09/27/19 11:47 17:50 21:59 Glucose POC Glucose 233 H 224 H 208 H 09/28/19 09/28/19 09/28/19 00:10 06:30 07:26 Glucose 169 H POC Glucose 200 H 181 H Laboratory Data (last 24hrs): 09/28/19 07:26 Potassium 3.0 L Carbon Dioxide 22 Anion Gap 8.0 Creatinine 0.81 Est Cr Clr Drug Dosing 132.1 HbA1c: Hemoglobin A1c 8.2 % (4.5-5.6) H 09/28/19 07:26 - Recent Pertinent Medications Outpatient Anti-diabetic Regimen: * Linagliptin 5 mg po daily * A1c = 8.2 % on 09/28/19 The patient is currently receiving: * Basal insulin: Lantus 10 units every 12 hours * Correctional Insulin: Novolog Correction per scale ACHS Goal Range: Low 110 mg/dL - High 140 mg/dL Correction Factor: 35 mg/dL/unit * Prandial insulin: Per carb ratio of 1 unit per 12 grams CHO consumed Risk Factors for Insulin Resistance: * Infection: possible meningitis * Diet: NPO - Assessment & Plan Assessment & Plan: ASSESSMENT: * 58 yo M with T2DM and adequate outpatient control with single oral agent as an outpatient admitted with AMS * Patient has been NPO and basal/bolus has been utilized, but BSG's persistently >180 mg/dL (although very gradual trend down noted). Total of 11 units correctional insulin administered * Will increase Lantus dose slightly * Will tighten Novolog parameters PLAN FOR INPATIENT GLYCEMIC CONTROL: * Holding outpatient oral diabetes medications * Basal insulin * Lantus 16 units SQ x1 then HS based on BSG * Bolus insulin * NovoLog Q6H (while NPO) * Goal Range: Low 110 mg/dL - High 140 mg/dL * Correction Factor: 25 mg/dL/unit * Nutritional / Prandial insulin per carb ratio of 1 unit per 8 grams CHO consumed * Please note that the plan above was derived based on current level of insulin resistance and hospital stress. These recommendations are appropriate for inpatient admission only. Plan of care upon discharge will need to be reassessed to avoid potential outpatient hypo/hyperglycemia. Thank you.
[2019-09-28] MEDS: cefTRIAXone SODIUM 2,000 MG in DEXTROSE 5% 50 ML IV SCH ×2 (09:27→21:30)
[2019-09-28] MEDS ORDERED: VANCOMYCIN TROUGH SCH (09:30)
[2019-09-28] MEDS ORDERED: LORazepam 0.5 MG/1 ML VIAL IV PRN ×2 (11:02→11:04)
[2019-09-28] MEDS: VANCOMYCIN HCL 1,750 MG in SODIUM CHLORIDE 0.9% 500 ML IV SCH ×3 (11:04→20:39)
--- NOTE | 2019-09-28 11:04 | Hospitalist Progress Note ---
Date of Service September 28, 2019 Assessment & Plan (1) Altered mental status: (2) Weakness: Review of outpatient records showed the patient was seen 2 days prior to admission at PCPs office for viral upper respiratory infection and was being treated with supportive care Presented with altered mental status CT head is negative for any acute abnormality However extensive work-up reviewed elevated ammonia level. 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 Continue vancomycin, ceftriaxone, ampicillin and acyclovir MRI brain could not be obtained yesterday due to agitation. Plan to get MRI today Blood culture is negative day 1 Get lumbar puncture Continue to monitor neurological status Passed bedside dysphagia screening. Start clear diet Elevated ammonia level [was 101 on admission] could be due to valproate. However, patient has been on this medication for a while. Continue lactulose TN for now and monitor ammonia level which is currently decreasing (3) Seizure disorder: Hx of generalized tonic-clonic seizures Followed [facility]y [place] in the past, but has been relatively stable for several years on Dilantin and Depakote Neurologist recommendations appreciated. Get EEG (4) T2DM (type 2 diabetes mellitus): With hyperglycemia Last A1c 8.2 on 08/03/2019 Continue to hold Tradjenta Optimize glycemic control (5) Gout: (6) HLD (hyperlipidemia): Continue statin (7) 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 (deep vein thrombosis): Coumadin held for now. INR is 1.8 Changed to subcutaneous Lovenox for possible LP Admission and Anticipated Discharge Date Admission Date: September 26, 2019 Subjective Patient seen and examined this morning. Patient is more awake and interactive but still slightly confused. He was able to say his name and that he was in the hospital. Stated that he had a cold recently He could not provide any further history. He does report some headache and some neck pain which he stated was chronic. Stated he was hungry Full review of systems limited as patient occasionally gets confused Physical Exam Constitutional: + well hydrated and + obese; no acute distress Eyes: PERRL, conjunctivae normal, anicteric sclerae ENMT: external ear and nose normal, oropharynx normal Neck: No point tenderness. Limited passive and active range of movement. Respiratory: normal respiratory effort, lungs clear to auscultation Cardiovascular: Rate/Rhythm: regular rate and regular rhythm S1 and S2, 1+ pedal edema Gastrointestinal (Abdomen): normal bowel sounds, soft, nontender, no hepatosplenomegaly Neurologic: PERRL, EOMI, accommodation nl, no face palsy, no dysarthria moves all extremities; no focal motor deficits Psychiatric: Orientation: alert Oriented to person, state that he was in the hospital but does not know which, not oriented to time/date. Confused Results & Data ([facility]) Vital Signs (Past 12 Hours) Vital Signs Temp Pulse Pulse Resp BP Pulse Ox 09/28/19 09:36 37.3 C 09/28/19 08:21 167/89 H 09/28/19 08:10 36.9 C 99 H 20 97 09/28/19 07:58 98 H 09/28/19 04:31 36.8 C 94 H 18 158/84 H 96 09/28/19 00:00 38.2 C H 103 H 19 156/83 H 97 Laboratory Results Abnormal lab results 09/27/19 09/27/19 09/27/19 Range/Units 11:47 17:50 21:59 RBC (4.7-6.1) M/uL Hct (42-52) % MCH (25-34) pg RDW Std Deviation (36.4-46.3) fL Plt Count (130-400) K/uL PT (9.0-12.0) Seconds INR (0.9-1.1) Potassium (3.5-5.1) mmol/L Chloride (98-107) mmol/L BUN/Creatinine Ratio (10-20) Glucose (70-99) mg/dl POC Glucose 233 H 224 H 208 H (70-99) mg/dl Hemoglobin A1c (4.5-5.6) % Calcium (8.5-10.1) mg/dl Phosphorus (2.5-4.9) mg/dl Ammonia (11-32) umol/L Total Protein (6.4-8.2) gm/dl Albumin (3.4-5.0) gm/dl Albumin/Globulin Ratio (0.9-2) 09/27/19 09/28/19 09/28/19 Range/Units 22:21 00:10 06:30 RBC (4.7-6.1) M/uL Hct (42-52) % MCH (25-34) pg RDW Std Deviation (36.4-46.3) fL Plt Count (130-400) K/uL PT (9.0-12.0) Seconds INR (0.9-1.1) Potassium (3.5-5.1) mmol/L Chloride (98-107) mmol/L BUN/Creatinine Ratio (10-20) Glucose (70-99) mg/dl POC Glucose 200 H 181 H (70-99) mg/dl Hemoglobin A1c (4.5-5.6) % Calcium (8.5-10.1) mg/dl Phosphorus (2.5-4.9) mg/dl Ammonia 80.5 H (11-32) umol/L Total Protein (6.4-8.2) gm/dl Albumin (3.4-5.0) gm/dl Albumin/Globulin Ratio (0.9-2) 09/28/19 09/28/19 09/28/19 Range/Units 07:26 07:26 07:26 RBC 4.14 L (4.7-6.1) M/uL Hct 40.4 L (42-52) % MCH 34.3 H (25-34) pg RDW Std Deviation 50.8 H (36.4-46.3) fL Plt Count 103 L (130-400) K/uL PT 18.0 H (9.0-12.0) Seconds INR 1.8 H (0.9-1.1) Potassium 3.0 L (3.5-5.1) mmol/L Chloride 115 H (98-107) mmol/L BUN/Creatinine Ratio 9.4 L (10-20) Glucose 169 H (70-99) mg/dl POC Glucose (70-99) mg/dl Hemoglobin A1c (4.5-5.6) % Calcium 7.9 L (8.5-10.1) mg/dl Phosphorus 2.3 L (2.5-4.9) mg/dl Ammonia (11-32) umol/L Total Protein 6.1 L (6.4-8.2) gm/dl Albumin 2.5 L (3.4-5.0) gm/dl Albumin/Globulin Ratio 0.7 L (0.9-2) 09/28/19 09/28/19 Range/Units 07:26 09:44 RBC (4.7-6.1) M/uL Hct (42-52) % MCH (25-34) pg RDW Std Deviation (36.4-46.3) fL Plt Count (130-400) K/uL PT (9.0-12.0) Seconds INR (0.9-1.1) Potassium (3.5-5.1) mmol/L Chloride (98-107) mmol/L BUN/Creatinine Ratio (10-20) Glucose 184 H (70-99) mg/dl POC Glucose (70-99) mg/dl Hemoglobin A1c 8.2 H (4.5-5.6) % Calcium (8.5-10.1) mg/dl Phosphorus (2.5-4.9) mg/dl Ammonia (11-32) umol/L Total Protein (6.4-8.2) gm/dl Albumin (3.4-5.0) gm/dl Albumin/Globulin Ratio (0.9-2) (1) Altered mental status Altered mental status type: unspecified Qualified Code(s): R41.82 - Altered mental status, unspecified
--- NOTE | 2019-09-28 11:36 | Pharmacy Report ---
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 It was obtained prior to the 4th overall vancomycin dose and was drawn at an apporpriate time with relation to prior and subsequent vancomycin doses * Patient is at risk for accumulation of vancomycin 2nd BMI and therefore will order an early repeat trough level Plan * Continue vancomycin 1750 mg IV q10h * Repeat trough 09/29 @ 1530 Pharmacy will continue to follow and will adjust dose/frequency as necessary. Thank you.
[2019-09-28] MEDS ORDERED: Nursing to Pharmacy Communication ONE (12:14)
[2019-09-28] MEDS ORDERED: POTASSIUM PHOS 3 MMOL/1 ML INFUSION IV STA (12:16)
[2019-09-28] MEDS ORDERED: POTASSIUM PHOSPHATE 15 MMOL in SODIUM CHLORIDE 0.9% 250 ML IV ONE (12:30)
[2019-09-28] MEDS ORDERED: MAGNESIUM OXIDE 400 MG TAB PO STA (12:39)
[2019-09-28] MEDS: POTASSIUM CHLORIDE PWD 20 MEQ PACK PO SCH (14:00)
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
[2019-09-28] MEDS: VALPROATE SOD 500 MG in DEXTROSE 5% 50 ML IV SCH (15:14)
[2019-09-28] MEDS ORDERED: WARFARIN SOD 7.5 MG TAB PO SCH (16:00)
[2019-09-28] MEDS ORDERED: AMLODIPINE BESYLATE 5 MG TAB PO ONE (16:25)
[2019-09-28] MEDS: ACETAMINOPHEN 325 MG TAB PO PRN (16:49)
[2019-09-28] MEDS: TAMSULOSIN HCL 0.4 MG CAP PO SCH (20:51)
[2019-09-28] MEDS: INSULIN GLARGINE SOLOSTAR 100 UNITS/ML 3 ML PEN SC SCH (20:54)
[2019-09-28] MEDS: LACTULOSE SYRUP 20 GM/30 ML UDC PO SCH (22:08)
[2019-09-29] MEDS ORDERED: GADOBUTROL 65ML VIAL IV PRN (04:42)
[2019-09-29] MEDS: AMPICILLIN 2,000 MG in SODIUM CHLOR 0.9% AD-VAN 100 ML IV SCH ×6 (04:48→23:57)
[2019-09-29] MEDS: ACYCLOVIR SOD 800 MG in DEXTROSE 5% 250 ML IV SCH ×3 (04:48→22:43)
[2019-09-29] MEDS: UNIT DOSE COMPOUND PR SCH (04:53)
[2019-09-29] MEDS: VANCOMYCIN HCL 1,750 MG in SODIUM CHLORIDE 0.9% 500 ML IV SCH ×2 (05:58→15:46)
--- NOTE | 2019-09-29 06:20 | Magnetic Resonance Report ---
MR brain wo/w con CLINICAL HISTORY: AMS mental status change COMPARISON STUDY: No previous studies for comparison. TECHNIQUE: Utilizing a 1.5 Bhumi magnet and dedicated coil, multiplanar, multiecho imaging of the br ain was performed pre and postcontrast administration. IV administration of 8.5 mL of Gadavist contr ast was uneventful. FINDINGS: Limited study due to severe patient motion. Diffusion images are considered negative for an acute ischemic event. There are findings of components of cerebellar as well as cerebral atrophy. Chronic small vessel butler ges are present considered unremarkable for age. The ventricular system is midline. Sella and parasellar regions are unremarkable. Findings of general ized mucosal thickening of all major sinuses. IMPRESSION: 1. Limited study due to severe patient motion. 2. No evidence for an acute ischemic event. 3. Atrophy. 4. No evidence for significant postcontrast enhancement. ACT 112: Negative or not required by law. The above report was generated using voice recognition software. It may contain grammatical, syntax or spelling errors. Electronically signed by: Og Craig M.D. 09/29/2019 6:19 AM
[2019-09-29 07:40] LABS: Hematocrit (blood only) 36.2 % (42-52); Hemoglobin 12.8 g/dL (14.0-18.0); Mean Corpuscular Hemoglobin 34.1 pg (25-34); Mean Corpuscular Hgb Conc 35.4 g/dL (32-36); Mean Corpuscular Volume 96.5 fL (80-100); Mean Platelet Volume 9.7 fL (7.4-10.4); Platelet Count 101 K/uL (130-400); RDW Coefficient of Variation 13.9 % (11.5-14.5); RDW Standard Deviation 49.1 fL (36.4-46.3); Red Blood Count 3.75 M/uL (4.7-6.1); White Blood Count 5.34 K/uL (4.8-10.8)
[2019-09-29 07:50] LABS: INR 1.7 (0.9-1.1); Prothrombin Time 16.4 Seconds (9.0-12.0)
[2019-09-29] MEDS: INSULIN ASPART 100 UNITS/ML 3 ML PEN SC SCH ×4 (08:24→22:28)
[2019-09-29] MEDS: LACTULOSE SYRUP 20 GM/30 ML UDC PO SCH ×2 (08:29→20:52)
[2019-09-29] MEDS: cefTRIAXone SODIUM 2,000 MG in DEXTROSE 5% 50 ML IV SCH ×2 (08:29→22:24)
[2019-09-29] MEDS: allopurinoL 300 MG TAB PO SCH (08:30)
[2019-09-29] MEDS: DOCUSATE SODIUM 100 MG CAP PO SCH ×2 (08:32→21:04)
[2019-09-29] MEDS: TOPIRAMATE 100 MG TAB PO SCH ×2 (08:32→20:53)
[2019-09-29] MEDS: CHOLECALCIFEROL 1,000 UNITS 25 MCG TAB PO SCH (08:33)
[2019-09-29] MEDS: ATORVASTATIN 40 MG TAB PO SCH (08:33)
[2019-09-29] MEDS: MULTIVITAMIN TAB PO SCH (08:34)
[2019-09-29] MEDS: INSULIN GLARGINE SOLOSTAR 100 UNITS/ML 3 ML PEN SC SCH ×2 (08:35→22:29)
[2019-09-29] MEDS: POTASSIUM CHLORIDE PWD 20 MEQ PACK PO SCH (08:35)
[2019-09-29 08:41] LABS: Albumin Globulin Ratio 0.7 (0.9-2); Albumin Level 2.2 gm/dl (3.4-5.0); BUN Creatinine Ratio 5.2 (10-20); Bilirubin,Total 0.3 mg/dl (0.2-1); Creatinine Clr Calc Pharmacy 138.4 ml/min; Est GFR (African American) 114.3; Est GFR (Non-African American) 98.6; Globulin 3.3 gm/dl (2.5-4.0); Potassium 2.5 mmol/L (3.5-5.1); Total Protein 5.5 gm/dl (6.4-8.2)
[2019-09-29] MEDS: SODIUM CHLORIDE 0.9% 1000ML 1,000 ML IV SCH (08:43)
[2019-09-29] MEDS: VALPROATE SOD 1,000 MG in DEXTROSE 5% 50 ML IV SCH ×2 (08:44→22:44)
[2019-09-29] MEDS: PHENYTOIN IV SCH ×2 (08:45→22:43)
[2019-09-29] MEDS: SODIUM CHLORIDE 0.9% 10ML FLUSH IV SCH ×2 (08:46→22:45)
[2019-09-29] MEDS ORDERED: POTASSIUM CHLORIDE PWD 20 MEQ PACK PO ONE (09:00)
[2019-09-29 09:19] LABS: Magnesium 1.5 mg/dl (1.8-2.4)
[2019-09-29] MEDS: ACETAMINOPHEN 325 MG TAB PO PRN (09:29)
[2019-09-29] MEDS: POTASSIUM CHLORIDE / WTR 10 MEQ/100 ML PLCT IV SCH ×4 (09:29→13:02)
[2019-09-29] MEDS: ENOXAPARIN INJ 120 MG/0.8 ML SYR SQ SCH ×2 (10:24→22:35)
[2019-09-29] MEDS: MAGNESIUM SULFATE / D5W 1 GM/100 ML BAG IV SCH ×2 (10:54→12:02)
--- NOTE | 2019-09-29 11:07 | Hospitalist Progress Note ---
Date of Service September 29, 2019 Assessment & Plan (1) Altered mental status: (2) Weakness: Review of outpatient records showed the patient was seen 2 days prior to admission at PCPs office for viral upper respiratory infection and was being treated with supportive care Presented with altered mental status CT head is negative for any acute abnormality However extensive work-up reviewed elevated ammonia level. 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 Patient now alert and oriented and able to converse model sluggish. Continue vancomycin, ceftriaxone, ampicillin and acyclovir MRI brain do limited to did not show any evidence of acute abnormalities Blood culture is negative day 2 Lumbar puncture could not be obtained yesterday's radiologist was concerned about patient's INR. Plan to get lumbar puncture when INR is suitable though sensitivity at that time will be lower considering patient on empirical therapy If not obtained by tomorrow and patient continues to improve, may discontinue Continue to monitor neurological status Neurologist recommendations appreciated Elevated ammonia level [was 101 on admission] could be due to valproate. However, patient has been on this medication for a while. Continue lactulose for now and monitor ammonia level which is currently decreasing (3) Seizure disorder: Hx of generalized tonic-clonic seizures Followed [facility] neurology S[place] in the past, but has been relatively stable for several years on Dilantin and Depakote Neurologist recommendations appreciated. Get EEG (4) T2DM (type 2 diabetes mellitus): With hyperglycemia Last A1c 8.2 on 08/03/2019 Continue to hold Tradjenta Optimize glycemic control (5) Gout: (6) HLD (hyperlipidemia): Continue statin (7) 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 (deep vein thrombosis): Coumadin held for now. INR is 1.8 Changed to subcutaneous Lovenox for possible LP Admission and Anticipated Discharge Date Admission Date: September 26, 2019 Subjective Patient is more alert and interactive today He is alert and oriented to person, place and month. He answers question appropriately though slow. He denied any new symptom. Does endorse chronic low back pain which he stated is at baseline States he has chronic neck pain but none at this time Denied any headaches, blurred vision, Denied any congestion, rhinorrhea, cough, chest pain, shortness of breath, sore throat Physical Exam Constitutional: + well hydrated and + obese; no acute distress Eyes: PERRL, conjunctivae normal, anicteric sclerae ENMT: external ear and nose normal, oropharynx normal Respiratory: normal respiratory effort, lungs clear to auscultation Cardiovascular: Rate/Rhythm: regular rate and regular rhythm Heart Sounds: normal S1 and normal S2 Extremities: + pedal edema Gastrointestinal (Abdomen): normal bowel sounds, soft, nontender, no hepatosplenomegaly Musculoskeletal: no cyanosis or clubbing, extremities motor strength 5/5 Neurologic: PERRL, EOMI, accommodation nl, no face palsy, no dysarthria moves all extremities; no focal motor deficits No tenderness on palpation of neck and back Psychiatric: Orientation: alert Insight: + limited insight Oriented to person,place and month Sluggish response Results & Data ([facility]) Vital Signs (Past 12 Hours) Vital Signs Temp Pulse Pulse Resp BP BP Pulse Ox 09/29/19 07:59 37.6 C H 96 H 22 146/86 H 96 09/29/19 06:42 37.2 C 95 H 19 153/90 H 97 09/29/19 04:48 37.5 C 96 H 20 152/78 H 97 09/29/19 00:48 37.8 C H 90 18 135/79 95 09/28/19 23:20 100 H (1) Altered mental status Altered mental status type: unspecified Qualified Code(s): R41.82 - Altered mental status, unspecified
[2019-09-29] MEDS: POT PHOSPHATE MONOBASIC W/ SOD TAB PO SCH ×2 (13:06→20:54)
--- NOTE | 2019-09-29 14:25 | Pharmacy Report ---
Pharmacy Glycemic Short Note 2 - Date of Service September 29, 2019 - Glycemic Short BSG Results (Last 24 hours): 09/28/19 09/28/19 09/29/19 16:32 20:11 07:17 Glucose 132 H POC Glucose 203 H 140 H 09/29/19 09/29/19 09/29/19 08:23 11:22 12:03 Glucose POC Glucose 169 H 168 H 169 H OUTPATIENT ANTIDIABETIC REGIMEN: * HbA1c = 8.2% * Linagliptin 5 mg PO daily ASSESSMENT: * Patient received total 42 units of insulin yesterday of which 31 units were basal and 11 units bolus Novolog. * Fasting BSG was only slightly above goal but improved from yesterday; therefore basal Lantus was continued the same. * Patient missed getting coverage with lunch yesterday resulting in BSG above 200 at dinner, otherwise post prandial BSGs are better compared to previous day. No changes in Novolog CF/CR made today. PLAN FOR INPATIENT GLYCEMIC CONTROL: * Hold outpatient oral diabetes medications * Basal insulin * Lantus SQ BID based on scale: - if BSG less than 120 = give 10 units - if BSG 120 or greater = give 15 units * Bolus insulin: continued * NovoLog per scale ACHS or Q6hrs while NPO * Goal Range: Low 110 mg/dL - High 140 mg/dL * Correction Factor: 25 mg/dL/unit * Nutritional / Prandial insulin per carb ratio of 1 unit per 8 grams CHO consumed PLAN FOR DISCHARGE: * HbA1c = 8.2% * Recommend resuming Linagliptin 5 mg PO daily (home anti-diabetic med) on discharge. * Goal A1c is less than 7% in this patient given his age and co-morbidities. * Recommend adding Metformin ER 500 mg PO daily with either morning or evening meal. * Typically the ER formulation of metformin is better tolerated than the immediate release formulation. Continue to titrate metformin dosing upwards as recommended. Dosage increases should be made in increments of 500 mg weekly, up to 2,000 mg/day PO, given in divided doses. * Recommend close up by outpatient provider for dose titration of Metformin.
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
[2019-09-29] MEDS: VALPROATE SOD 500 MG in DEXTROSE 5% 50 ML IV SCH (14:32)
[2019-09-29] MEDS ORDERED: VANCOMYCIN TROUGH ONE (15:30)
[2019-09-29 19:55] LABS: BUN Creatinine Ratio 4.2 (10-20); Creatinine Clr Calc Pharmacy 115.9 ml/min; Est GFR (African American) 104.4; Est GFR (Non-African American) 90.1; Potassium 2.9 mmol/L (3.5-5.1)
[2019-09-29] MEDS: AMLODIPINE BESYLATE 5 MG TAB PO SCH (20:47)
[2019-09-29] MEDS: TAMSULOSIN HCL 0.4 MG CAP PO SCH (20:52)
--- NOTE | 2019-09-29 21:05 | Pharmacy Report ---
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 Plan Vancomycin * Trough level of 18.4 mcg/mL is therapeutic * Continue dose of 1750 mg IV every 10 hours * Goal trough level: 15 to 20 mcg/mL Pharmacy will continue to follow and will adjust dose/frequency as necessary. Thank you.
[2019-09-30] MEDS: VANCOMYCIN HCL 1,750 MG in SODIUM CHLORIDE 0.9% 500 ML IV SCH ×3 (01:59→22:48)
[2019-09-30] MEDS: AMPICILLIN 2,000 MG in SODIUM CHLOR 0.9% AD-VAN 100 ML IV SCH ×4 (04:08→17:26)
[2019-09-30] MEDS: ACYCLOVIR SOD 800 MG in DEXTROSE 5% 250 ML IV SCH ×2 (04:09→12:21)
[2019-09-30] MEDS: SODIUM CHLORIDE 0.9% 1000ML 1,000 ML IV SCH ×2 (06:10→21:21)
[2019-09-30 08:22] LABS: Hematocrit (blood only) 39.9 % (42-52); Hemoglobin 14.1 g/dL (14.0-18.0); Mean Corpuscular Hemoglobin 34.1 pg (25-34); Mean Corpuscular Hgb Conc 35.3 g/dL (32-36); Mean Corpuscular Volume 96.4 fL (80-100); RDW Coefficient of Variation 13.9 % (11.5-14.5); RDW Standard Deviation 49.4 fL (36.4-46.3); Red Blood Count 4.14 M/uL (4.7-6.1); White Blood Count 5.21 K/uL (4.8-10.8)
[2019-09-30 08:37] LABS: INR 1.6 (0.9-1.1); Prothrombin Time 15.5 Seconds (9.0-12.0)
[2019-09-30 08:42] LABS: Albumin Level 2.6 gm/dl (3.4-5.0); BUN Creatinine Ratio 4.6 (10-20); Bilirubin Direct < 0.1 mg/dl (0-0.2); Blood Urea Nitrogen 4 mg/dl (7-18); Calcium 7.4 mg/dl (8.5-10.1); Carbon Dioxide 21 mmol/L (21-32); Chloride 116 mmol/L (98-107); Est GFR (African American) 109.2; Est GFR (Non-African American) 94.3; Glucose 154 mg/dl (70-99); Magnesium 1.9 mg/dl (1.8-2.4); Sodium 143 mmol/L (136-145)
[2019-09-30 08:45] LABS: Alanine Aminotransferase 34 U/L (12-78); Alkaline Phosphatase 102 U/L (45-117); Aspartate Aminotransferase 44 U/L (15-37); Bilirubin,Total 0.3 mg/dl (0.2-1); Phosphorus 1.9 mg/dl (2.5-4.9); Total Protein 6.1 gm/dl (6.4-8.2)
[2019-09-30 08:50] LABS: Mean Platelet Volume 9.6 fL (7.4-10.4); Platelet Count 98 K/uL (130-400)
[2019-09-30] MEDS: LACTULOSE SYRUP 20 GM/30 ML UDC PO SCH ×3 (08:51→21:22)
[2019-09-30] MEDS: DOCUSATE SODIUM 100 MG CAP PO SCH ×2 (08:52→21:24)
[2019-09-30] MEDS: INSULIN GLARGINE SOLOSTAR 100 UNITS/ML 3 ML PEN SC SCH (08:55)
[2019-09-30] MEDS: POTASSIUM CHLORIDE PWD 20 MEQ PACK PO SCH (08:55)
[2019-09-30] MEDS: ATORVASTATIN 40 MG TAB PO SCH (08:57)
[2019-09-30] MEDS: AMLODIPINE BESYLATE 5 MG TAB PO SCH (08:57)
[2019-09-30] MEDS: MULTIVITAMIN TAB PO SCH (08:57)
[2019-09-30] MEDS: POT PHOSPHATE MONOBASIC W/ SOD TAB PO SCH (08:58)
[2019-09-30] MEDS: cefTRIAXone SODIUM 2,000 MG in DEXTROSE 5% 50 ML IV SCH (08:58)
[2019-09-30] MEDS: CHOLECALCIFEROL 1,000 UNITS 25 MCG TAB PO SCH (09:00)
[2019-09-30] MEDS: TOPIRAMATE 100 MG TAB PO SCH ×2 (09:00→21:27)
[2019-09-30] MEDS: allopurinoL 300 MG TAB PO SCH (09:01)
[2019-09-30] MEDS: ENOXAPARIN INJ 120 MG/0.8 ML SYR SQ SCH ×2 (09:02→22:48)
[2019-09-30] MEDS: INSULIN ASPART 100 UNITS/ML 3 ML PEN SC SCH ×4 (09:04→21:30)
[2019-09-30] MEDS: VALPROATE SOD 1,000 MG in DEXTROSE 5% 50 ML IV SCH ×2 (09:11→21:24)
[2019-09-30] MEDS: PHENYTOIN IV SCH ×2 (09:12→21:24)
[2019-09-30] MEDS: SODIUM CHLORIDE 0.9% 10ML FLUSH IV SCH ×2 (09:12→21:26)
[2019-09-30] MEDS ORDERED: POTASSIUM PHOS 3 MMOL/1 ML INFUSION IV STA (13:09)
[2019-09-30] MEDS ORDERED: POTASSIUM CHLORIDE 20 MEQ TABCR PO STA (13:09)
[2019-09-30] MEDS ORDERED: POTASSIUM PHOSPHATE 21 MMOL in SODIUM CHLORIDE 0.9% 500 ML IV ONE (13:30)
[2019-09-30] MEDS: VALPROATE SOD 500 MG in DEXTROSE 5% 50 ML IV SCH (14:06)
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
--- NOTE | 2019-09-30 14:36 | Pharmacy Report ---
Pharmacy Glycemic Short Note 2 - Date of Service September 30, 2019 - Glycemic Short BSG Results (Last 24 hours): 09/29/19 09/29/19 09/29/19 16:13 19:14 20:37 Glucose 179 H POC Glucose 134 H > 600 H* 09/29/19 09/29/19 09/29/19 20:38 20:39 20:41 Glucose POC Glucose 267 H 355 H* 245 H 09/29/19 09/30/19 09/30/19 22:23 07:41 08:07 Glucose 154 H POC Glucose 141 H 146 H 09/30/19 10:52 Glucose POC Glucose 187 H OUTPATIENT ANTIDIABETIC REGIMEN: * HbA1c = 8.2% * Linagliptin 5 mg PO daily ASSESSMENT: * Patient received total 51 units of insulin yesterday of which 30 units were basal and 21 units bolus Novolog. * Fasting BSG was only slightly above goal but improved from yesterday; therefore basal Lantus was continued the same. * Lunch BSG today was elevated but this is most likely due to BSG being checked less than 2 hrs after the morning Novolog was given. * Novolog CR was tightened slightly this morning but loosened back with dinner. PLAN FOR INPATIENT GLYCEMIC CONTROL: * Hold outpatient oral diabetes medications * Basal insulin * Lantus 15 units SQ BID * Bolus insulin: continued * NovoLog per scale ACHS or Q6hrs while NPO * Goal Range: Low 110 mg/dL - High 140 mg/dL * Correction Factor: 25 mg/dL/unit * Nutritional / Prandial insulin per carb ratio of 1 unit per 8 grams CHO consumed PLAN FOR DISCHARGE: * HbA1c = 8.2% * Recommend resuming Linagliptin 5 mg PO daily (home anti-diabetic med) on discharge. * Goal A1c is less than 7% in this patient given his age and co-morbidities. * Recommend adding Metformin ER 500 mg PO daily with either morning or evening meal. * Typically the ER formulation of metformin is better tolerated than the immediate release formulation. Continue to titrate metformin dosing upwards as recommended. Dosage increases should be made in increments of 500 mg weekly, up to 2,000 mg/day PO, given in divided doses. * Recommend close up by outpatient provider for dose titration of Metformin.
[2019-09-30] MEDS ORDERED: WARFARIN SOD 6 MG TAB PO ONE (17:00)
--- NOTE | 2019-09-30 18:38 | Hospitalist Progress Note ---
Date of Service September 30, 2019 Assessment & Plan (1) Altered mental status: (2) Weakness: Review of outpatient records showed the patient was seen 2 days prior to admission at PCPs office for viral upper respiratory infection and was being treated with supportive care Presented with altered mental status Doubt about Meningoencephalitis CT head is negative for any acute abnormality MRI showed no evidence for an acute ischemic event. No evidence for significant postcontrast enhancement. Elevated ammonia level might be due to Valproate acid Was unable to get any LP due to elevate INR has been on empirical abx since admission (vancomycin, ceftriaxone, ampicillin and acyclovir) case discussed with neuro and no need to get LP now since pt back to baseline and has been on IV abx Blood cx negative Will D/C Vanco, Ampicillin and acyclovir Elevated ammonia level Possible could be due to valproate. valproate acid 101 on admission Continue lactulose for now and monitor ammonia level which is currently decreasing (3) Seizure disorder: Hx of generalized tonic-clonic seizures On Depakote 1000 mg BID and 500 mg @ 1500 on Dilantin 400 mg BID Continue seizure precautions (4) T2DM (type 2 diabetes mellitus): Last A1c 8.2 on 08/03/2019 Continue to hold Tradjenta while in the hospital Continue monitor BS (5) Gout: continue allopurinol (6) HLD (hyperlipidemia): Continue statin (7) 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 (deep vein thrombosis): Coumadin resume with INR 1.6 today Continue Lovenox BID (8) Electrolyte imbalance: K 3 and phosphorus 1.9 Electrolytes replaced Monitor electrolytes Admission and Anticipated Discharge Date Admission Date: September 26, 2019 Subjective Pt was seen and examined Lying in bed with no distress Denies any chest pain, palpitation, dizziness and SOB Physical Exam Physical Exam: General- No acute distress Head- atraumatic Eyes- PERRL, EOMI, ENT- oropharynx clear Neck- supple, no JVD Lungs- clear to auscultation Heart- regular rhythm; no murmur Abdomen- normal bowel sounds, soft, nontender Extremities- no calf tenderness, +edema Neuro- alert, oriented x 3; PERRL, EOMI; no facial palsy; no dysarthria Skin- warm & dry Results & Data ([facility]) Vital Signs (Past 12 Hours) Vital Signs Temp Pulse Pulse Resp BP Pulse Ox 09/30/19 17:00 101 H 09/30/19 15:45 37.3 C 92 H 21 159/85 H 98 09/30/19 11:34 37.0 C 97 H 22 153/77 H 96 09/30/19 08:23 36.9 C 93 H 22 157/82 H 98 09/30/19 08:00 97 H (1) Altered mental status Altered mental status type: unspecified Qualified Code(s): R41.82 - Altered mental status, unspecified
[2019-09-30] MEDS: ACETAMINOPHEN 325 MG TAB PO PRN (19:17)
[2019-09-30] MEDS ORDERED: INSULIN GLARGINE SOLOSTAR 100 UNITS/ML 3 ML PEN SC SCH (21:00)
[2019-09-30] MEDS: TAMSULOSIN HCL 0.4 MG CAP PO SCH (21:25)
[2019-10-01] MEDS: ACETAMINOPHEN 325 MG TAB PO PRN (06:09)
[2019-10-01] MEDS: SODIUM CHLORIDE 0.9% 1000ML 1,000 ML IV SCH (07:28)
[2019-10-01] MEDS: VANCOMYCIN HCL 1,750 MG in SODIUM CHLORIDE 0.9% 500 ML IV SCH (08:12)
--- NOTE | 2019-10-01 08:36 | Pharmacy Report ---
Pharmacy Glycemic Short Note 2 - Date of Service October 01, 2019 - Glycemic Short BSG Results (Last 24 hours): 09/30/19 09/30/19 09/30/19 08:07 10:52 16:33 Glucose 154 H POC Glucose 187 H 127 H 09/30/19 10/01/19 10/01/19 20:46 07:24 07:25 Glucose POC Glucose 197 H 321 H* 223 H 10/01/19 07:27 Glucose POC Glucose 219 H OUTPATIENT ANTIDIABETIC REGIMEN: * HbA1c = 8.2% * Linagliptin 5 mg PO daily ASSESSMENT: 10/01/19 * Patient is currently receiving an average of 75 units of insulin per day * 30 units of basal insulin * 45 units of prandial/correctional insulin * BSGs ranging 127-321mg/dl over the past 24hrs * Risk factors for insulin resistance are decreasing over the past 24hrs * Infection is being adequately treated/Pt status improving, antibiotics discontinued * Anticipating insulin regimen will need increased for the next 24hrs d/t : * AM Fasting BSG = 321mg/dl, repeats 223mg/dl therefore Basal insulin needs increased * Post-prandial BSGs are elevated/BSGs rise throughout the day therefore Tighten CF/CR 09/30/19 * Patient received total 51 units of insulin yesterday of which 30 units were basal and 21 units bolus Novolog. * Fasting BSG was only slightly above goal but improved from yesterday; therefore basal Lantus was continued the same. * Lunch BSG today was elevated but this is most likely due to BSG being checked less than 2 hrs after the morning Novolog was given. * Novolog CR was tightened slightly this morning but loosened back with dinner. PLAN FOR INPATIENT GLYCEMIC CONTROL: * Hold outpatient oral diabetes medications * Basal insulin - INCREASE * Lantus 20 units SQ BID * Bolus insulin: * NovoLog per scale ACHS or Q6hrs while NPO * Goal Range: Low 110 mg/dL - High 140 mg/dL * TIGHTEN: Correction Factor: 20 mg/dL/unit * TIGHTEN: Nutritional / Prandial insulin per carb ratio of 1 unit per 7 grams CHO consumed PLAN FOR DISCHARGE: * HbA1c = 8.2% * Recommend resuming Linagliptin 5 mg PO daily (home anti-diabetic med) on discharge. * Goal A1c is less than 7% in this patient given his age and co-morbidities. * Recommend adding Metformin ER 500 mg PO daily with either morning or evening meal. * Typically the ER formulation of metformin is better tolerated than the immediate release formulation. Continue to titrate metformin dosing upwards as recommended. Dosage increases should be made in increments of 500 mg weekly, up to 2,000 mg/day PO, given in divided doses. * Recommend close up by outpatient provider for dose titration of Metformin.
[2019-10-01] MEDS: AMLODIPINE BESYLATE 5 MG TAB PO SCH (08:58)
[2019-10-01] MEDS: CHOLECALCIFEROL 1,000 UNITS 25 MCG TAB PO SCH (08:58)
[2019-10-01] MEDS: allopurinoL 300 MG TAB PO SCH (08:58)
[2019-10-01] MEDS: TOPIRAMATE 100 MG TAB PO SCH (08:59)
[2019-10-01] MEDS: MULTIVITAMIN TAB PO SCH (08:59)
[2019-10-01] MEDS: ATORVASTATIN 40 MG TAB PO SCH (08:59)
[2019-10-01] MEDS ORDERED: INSULIN GLARGINE SOLOSTAR 100 UNITS/ML 3 ML PEN SC SCH (09:00)
[2019-10-01] MEDS: POTASSIUM CHLORIDE PWD 20 MEQ PACK PO SCH (09:00)
[2019-10-01 09:02] LABS: INR 2.2 (0.9-1.1); Prothrombin Time 21.3 Seconds (9.0-12.0)
[2019-10-01] MEDS: LACTULOSE SYRUP 20 GM/30 ML UDC PO SCH ×2 (09:05→13:32)
[2019-10-01] MEDS: SODIUM CHLORIDE 0.9% 10ML FLUSH IV SCH (09:07)
[2019-10-01 09:15] LABS: BUN Creatinine Ratio 6.1 (10-20); Calcium 7.6 mg/dl (8.5-10.1); Creatinine Clr Calc Pharmacy 137.1 ml/min; Est GFR (African American) 113.1; Est GFR (Non-African American) 97.6; Magnesium 1.8 mg/dl (1.8-2.4)
[2019-10-01] MEDS: DOCUSATE SODIUM 100 MG CAP PO SCH (09:16)
[2019-10-01] MEDS: PHENYTOIN IV SCH (09:17)
[2019-10-01] MEDS: VALPROATE SOD 1,000 MG in DEXTROSE 5% 50 ML IV SCH (09:17)
[2019-10-01] MEDS: ENOXAPARIN INJ 120 MG/0.8 ML SYR SQ SCH (09:18)
[2019-10-01] MEDS: INSULIN ASPART 100 UNITS/ML 3 ML PEN SC SCH ×3 (09:34→17:00)
[2019-10-01] MEDS: VALPROATE SOD 500 MG in DEXTROSE 5% 50 ML IV SCH (14:28)
[2019-10-01] MEDS ORDERED: WARFARIN SOD 5 MG TAB PO ONE (16:00)
[2019-10-01] MEDS ORDERED: POTASSIUM CHLORIDE 20 MEQ TABCR PO STA (17:09)
--- NOTE | 2019-10-01 17:09 | Hospitalist Progress Note ---
Date of Service October 01, 2019 Assessment & Plan (1) Altered mental status: (2) Weakness: Review of outpatient records showed the patient was seen 2 days prior to admission at PCPs office for viral upper respiratory infection and was being treated with supportive care Presented with altered mental status Doubt about Meningoencephalitis CT head is negative for any acute abnormality MRI showed no evidence for an acute ischemic event. No evidence for significant postcontrast enhancement. Elevated ammonia level might be due to Valproate acid Was unable to get any LP due to elevate INR has been on empirical abx since admission (vancomycin, ceftriaxone, ampicillin and acyclovir) case discussed with neuro and no need to get LP now since pt back to baseline and has been on IV abx Blood cx remains negative Vanco, Ampicillin and acyclovir discontinued Remained afebrile Case discussed with ID (no official consult), recommended to monitor while off abx Elevated ammonia level Possible could be due to valproate. valproate acid 101 on admission Continue lactulose for now and monitor ammonia level which is currently decreasing (3) Seizure disorder: Hx of generalized tonic-clonic seizures On Depakote 1000 mg BID and 500 mg @ 1500 on Dilantin 400 mg BID Continue seizure precautions (4) T2DM (type 2 diabetes mellitus): Last A1c 8.2 on 08/03/2019 Continue to hold Tradjenta while in the hospital Continue monitor BS (5) Gout: continue allopurinol (6) HLD (hyperlipidemia): Continue statin (7) 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 (deep vein thrombosis): Coumadin resume with INR 2.2 today Lovenox discontinued (8) Electrolyte imbalance: K 3 and phosphorus 2.0 Electrolytes replaced Check BMP and phosphorus in 1 -2 days Admission and Anticipated Discharge Date Admission Date: September 26, 2019 Subjective Pt was seen and examined Sitting in chair with no distress Pt is feeling much better He said that headache improves Denies any chest pain, palpitation, dizziness, fever and SOB Physical Exam Physical Exam: General- No acute distress Head- atraumatic Eyes- PERRL, EOMI, ENT- oropharynx clear Neck- supple, no JVD Lungs- clear to auscultation Heart- regular rhythm; no murmur Abdomen- normal bowel sounds, soft, nontender Extremities- no calf tenderness, +edema Neuro- alert, oriented x 3; PERRL, EOMI; no facial palsy; no dysarthria Skin- warm & dry Results & Data ([facility]) Vital Signs (Past 12 Hours) Vital Signs Temp Pulse Pulse Resp BP Pulse Ox 10/01/19 15:03 36.5 C 91 H 18 146/85 H 98 10/01/19 11:42 36.3 C L 93 H 16 148/72 H 98 10/01/19 08:25 37.1 C 87 24 161/68 H 97 10/01/19 08:10 90 10/01/19 05:58 87 24 142/83 H 100 (1) Altered mental status Altered mental status type: unspecified Qualified Code(s): R41.82 - Altered mental status, unspecified
[2019-10-01] MEDS ORDERED: POT PHOSPHATE MONOBASIC W/ SOD TAB PO STA (17:16)
--- NOTE | 2019-10-01 18:59 | Electrocardiogram Report ---
Test Reason : Blood Pressure : / mmHG Vent. Rate : 089 BPM Atrial Rate : 089 BPM P-R Int : 156 ms QRS Dur : 086 ms QT Int : 402 ms P-R-T Axes : 042 042 052 degrees QTc Int : 489 ms Normal sinus rhythm Nonspecific ST abnormality When compared with ECG of 26-SEP-2019 14:59, Nonspecific T wave abnormality now evident in Inferior leads Confirmed by Kristian Morrissey ([id number]) on 10/01/2019 6:59:46 PM Referred By: REFERRED SELF Confirmed By:Rodri Morrissey
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
== END 2019-10-01 18:06 | DRG 99 ==
LOC: ED 14:26 → SUATTDRO 17:55 → 2S 17:55

== ENCOUNTER 2020-08-29 08:16 | Inpatient (IN) ==
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
[2020-08-29] MEDS ORDERED: SODIUM CHLORIDE 0.9% 500 ML IV ONE (09:01)
--- NOTE | 2020-08-29 09:45 | XRay Report ---
XR chest 1V portable CLINICAL HISTORY: SEPSIS COMPARISON STUDY: 08/01/2020 FINDINGS: The heart is enlarged. There is significant improvement in the bilateral pulmonary airspace opacities. There are no large pleural effusions. There is no pneumothorax. Arthritic changes are pre sent within the shoulders.[ IMPRESSION: Significant interval improvement in the bilateral pulmonary airspace opacities ACT 112: Negative or not required by law. Electronically signed by: Fermín Lr M.D. 08/29/2020 9:44 AM
[2020-08-29 09:55] LABS: Basophils # (auto) 0.02 K/uL (0-0.2); Basophils % (auto) 0.2 %; Eosinophils # (auto) 0.09 K/uL (0-0.5); Eosinophils % (auto) 0.7 %; Hematocrit (blood only) 36.4 % (42-52); Hemoglobin 12.2 g/dL (14.0-18.0); Immature Granulocytes # (auto) 0.08 K/uL (0.00-0.02); Immature Granulocytes % (auto) 0.6 %; Lymphocytes # (auto) 2.47 K/uL (1.2-3.4); Lymphocytes % (auto) 19.7 %; Mean Corpuscular Hemoglobin 33.4 pg (25-34); Mean Corpuscular Hgb Conc 33.5 g/dL (32-36); Mean Corpuscular Volume 99.7 fL (80-100); Monocytes % (auto) 10.4 %; Neutrophils # (auto) 8.57 K/uL (1.4-6.5); Neutrophils % (auto) 68.4 %; Platelet Count 118 K/uL (130-400); RDW Coefficient of Variation 15.6 % (11.5-14.5); RDW Standard Deviation 56.8 fL (36.4-46.3); Red Blood Count 3.65 M/uL (4.7-6.1); White Blood Count 12.53 K/uL (4.8-10.8)
[2020-08-29 10:08] LABS: INR 2.3 (0.9-1.1); Partial Thromboplastin Ratio 1.5; Partial Thromboplastin Time 42.8 Seconds (21.0-31.0); Prothrombin Time 23.6 Seconds (9.0-12.0)
[2020-08-29 10:18] LABS: Alanine Aminotransferase 21 U/L (12-78); Albumin Level 2.4 gm/dl (3.4-5.0); Aspartate Aminotransferase 16 U/L (15-37); BUN Creatinine Ratio 15.5 (10-20); Bilirubin Direct 0.1 mg/dl (0-0.2); Blood Urea Nitrogen 18 mg/dl (7-18); Calcium 8.5 mg/dl (8.5-10.1); Carbon Dioxide 19 mmol/L (21-32); Chloride 113 mmol/L (98-107); Creatinine Clr Calc Pharmacy 92.4 ml/min; Est GFR (African American) 80.9; Est GFR (Non-African American) 69.8; Glucose 190 mg/dl (70-99); Magnesium 1.9 mg/dl (1.8-2.4); Potassium 3.8 mmol/L (3.5-5.1); Sodium 141 mmol/L (136-145)
[2020-08-29 10:26] LABS: Appearance Urine Clear (Clear); Bacteria Urine Automated Negative (Negative); Bilirubin Urine Negative (Negative); Blood Urine Negative (Negative); Cast Urine Automated 0 /lpf (0-5); Color Urine Yellow; Glucose Urine UA Negative (Negative); Ketones Urine Negative (Negative); Leukocyte Esterase Urine Negative (Negative); Nitrite Urine Negative (Negative); Protein Urine Trace (Negative); RBC Urine Automated 0-4 /hpf (0-4); Specific Gravity Urine 1.012 (1.000-1.030); Urobilinogen Urine Negative (Negative)
[2020-08-29 10:29] LABS: Albumin Globulin Ratio 0.6 (0.9-2); Alkaline Phosphatase 88 U/L (45-117); Bilirubin,Total 0.4 mg/dl (0.2-1); Globulin 4.3 gm/dl (2.5-4.0); NT Pro B Type Natriuretic Pept 656 pg/ml (0-900); Phosphorus 3.1 mg/dl (2.5-4.9); Total Protein 6.7 gm/dl (6.4-8.2); Troponin I < 0.015 ng/ml (0-0.045)
--- NOTE | 2020-08-29 10:29 | CT Scan Report ---
CT head/brain wo con CLINICAL HISTORY: weakness EFFUSION COMPARISON STUDY: 07/23/2020 TECHNIQUE: Axial CT of the brain is performed from the vertex to the skull base. IV contrast was not administered for this examination. A dose lowering technique was utilized adhering to the principles of ALARA. CT DOSE: 614.27 mGy.cm FINDINGS: No intra or extra-axial mass lesions are visualized. There is no CT evidence of acute cortical infarc tion. There is no evidence of midline shift. There is no acute hemorrhage. No calvarial fractures ar e visualized. There are minimal white matter hypodensities likely on a small vessel basis. There is no evidence of pathologic ventricular dilatation. There is no evidence of acute sinusitis IMPRESSION: No acute intracranial findings ACT 112: Negative or not required by law. Electronically signed by: Fermín Lr M.D. 08/29/2020 10:27 AM
--- NOTE | 2020-08-29 11:37 | Electrocardiogram Report ---
Test Reason : Blood Pressure : / mmHG Vent. Rate : 090 BPM Atrial Rate : 090 BPM P-R Int : 152 ms QRS Dur : 086 ms QT Int : 390 ms P-R-T Axes : 038 043 043 degrees QTc Int : 477 ms Normal sinus rhythm Normal ECG When compared with ECG of 23-JUL-2020 17:51, Nonspecific T wave abnormality no longer evident in Lateral leads Confirmed by Kristian Morrissey ([id number]) on 08/29/2020 11:36:45 AM Referred By: REFERRED SELF Confirmed By:Rodri Morrissey
[2020-08-29] MEDS ORDERED: cefTRIAXone SODIUM 2,000 MG/70 ML BAG IV STA (11:45)
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
[2020-08-29] MEDS ORDERED: PHENYTOIN SODIUM ER 100 MG CAP PO STA (13:24)
[2020-08-29] MEDS ORDERED: DIVALPROEX DELAY RELEASE 500 MG TAB PO STA (13:24)
[2020-08-29] MEDS ORDERED: TOPIRAMATE 100 MG TAB PO STA (13:24)
[2020-08-29] MEDS ORDERED: IOVERSOL 100ml IV ONE (13:55)
--- NOTE | 2020-08-29 14:16 | CT Scan Report ---
ABDOMEN AND PELVIS CT WITH IV CONTRAST CT DOSE: 1145.66 mGy.cm HISTORY: Acute sepsis. possible sepsis, hx of pneumatosis intestinalsis TECHNIQUE: Multiaxial CT images of the abdomen and pelvis were performed following the IV administrat ion of 95 cc of Optiray 320, A dose lowering technique was utilized adhering to the principles of AL AURELIA. COMPARISON STUDY: CT abdomen and pelvis 07/23/2020 FINDINGS: Respiratory motion artifact limits evaluation of the lung bases. Bibasilar atelectasis/scarring redem onstrated with progressive pulmonary opacities compared to the prior. There is no pneumoperitoneum. T he heart is mildly enlarged. Coronary artery calcifications. The spleen is enlarged measuring up to 1 6 cm in length. Mild generalized pancreatic atrophy. Mild gallbladder distention without CT evidence of acute cholecystitis. Unremarkable liver and adrenal glands. Right nephrectomy. Mildly heterogeneous enhancement of the interpolar left kidney posterior laterally . Moderate perinephric stranding is noted with mild urothelial enhancement of the collecting system a nd ureter. Mild hydroureteronephrosis without obstructing calculus or lesion. Exophytic probable cyst of the inferior pole left kidney redemonstrated measuring 12 mm. Urinary bladder wall thickening wit h partial distention. Prominent prostate. Calcified plaque of the abdominal aorta without aneurysm. N o adenopathy. No bowel obstruction or bowel wall thickening. Pneumatosis coli within the ascending colon redemonstr ated which has mildly decreased from comparison. Mesenteric venous gas in the right lower quadrant. M oderate fecal retention. Noninflamed appendix. Mid abdominal fat filled midline hernia is noted with diastases of 2.8 cm. Degenerative changes of the spine, pelvis and hips. Healed remote right-sided ri b fractures. Noted acute fracture or suspicious bone lesion. IMPRESSION: 1. Heterogeneous mildly decreased enhancement of the interpolar left kidney is noted in conjunction w ith perinephric stranding, urethral thickening and enhancement with mild hydroureteronephrosis. No ob structing ureteral calculus or lesion. Findings are suggestive of an ascending infection with pyelone phritis. Correlate with urinalysis. 2. Partial distention of the urinary bladder with mild wall thickening. This could also be correlated with urinalysis to exclude cystitis. 3. No bowel obstruction or bowel wall thickening. Normal appendix. 4. Pneumatosis coli is again noted within the ascending colon which has decreased from the 07/23/2020 exam. Considering that no other signs of ischemic bowel are identified, this finding is favored to b e of incidental benign etiology. 5. Additional findings as above. ACT 112: Negative or not required by law. The above report was generated using voice recognition software. It may contain grammatical, syntax o r spelling errors. Electronically signed by: Mariano Chapman M.D. 08/29/2020 2:15 PM
[2020-08-29] MEDS ORDERED: ONDANSETRON INJ 2 MG/ML 2 ML VIAL IV PRN (14:22)
[2020-08-29] MEDS ORDERED: GLUCOSE 10 TABS/TUBE PO PRN (14:22)
[2020-08-29] MEDS ORDERED: CARBOHYDRATES FOR HYPOGLYCEMIA PO PRN (14:22)
[2020-08-29] MEDS ORDERED: ALUMINUM/MAGNESIUM SUSP 30 ML UDC PO PRN (14:22)
[2020-08-29] MEDS ORDERED: POLYETHYLENE (MIRALAX) 17 GM PACK PO PRN (14:22)
[2020-08-29] MEDS ORDERED: DEXTROSE 50% 50 ML SYRINGE IV PRN (14:22)
[2020-08-29] MEDS ORDERED: GLUCAGON FOR INJ 1 MG VIAL SQ PRN (14:22)
[2020-08-29] MEDS ORDERED: MAGNESIUM HYDROXIDE SUSP 30 ML UDC PO PRN (14:22)
[2020-08-29] MEDS ORDERED: GLUCOSE 40% GEL 15 GM TUBE PO PRN (14:22)
[2020-08-29] MEDS: amLODIPine BESYLATE 5 MG TAB PO SCH (15:20)
[2020-08-29] MEDS: DIVALPROEX DELAY RELEASE 500 MG TAB PO SCH ×2 (15:34→20:27)
[2020-08-29] MEDS: POTASSIUM CHLORIDE CRTAB 20 MEQ TABCR PO SCH (15:34)
[2020-08-29] MEDS ORDERED: WARFARIN SOD 7.5 MG TAB PO SCH (16:00)
[2020-08-29] MEDS: ACETAMINOPHEN 325 MG TAB PO PRN (16:12)
[2020-08-29] MEDS: LACTULOSE SYRUP 30 GM/45 ML UDP PO SCH ×2 (16:12→20:25)
[2020-08-29] MEDS: INSULIN ASPART 100 UNITS/ML 3 ML PEN SC SCH ×2 (17:02→20:28)
[2020-08-29] MEDS: TAMSULOSIN HCL 0.4 MG CAP PO SCH (20:26)
[2020-08-29] MEDS: GABAPENTIN 400 MG CAP PO SCH (20:26)
[2020-08-29] MEDS: PHENYTOIN SODIUM ER 100 MG CAP PO SCH (20:26)
[2020-08-29] MEDS: INSULIN GLARGINE SOLOSTAR 100 UNITS/ML 3 ML PEN SC SCH (20:28)
[2020-08-29] MEDS: GABAPENTIN 100 MG CAP PO SCH (20:29)
[2020-08-29] MEDS: TOPIRAMATE 100 MG TAB PO SCH (20:29)
[2020-08-30] MEDS ORDERED: oxyCODONE HCL IR 5 MG TAB (IMMEDIATE RELEASE) PO STA (05:13)
[2020-08-30 06:30] LABS: Basophils # (auto) 0.02 K/uL (0-0.2); Basophils % (auto) 0.2 %; Eosinophils # (auto) 0.11 K/uL (0-0.5); Hematocrit (blood only) 36.3 % (42-52); Hemoglobin 12.4 g/dL (14.0-18.0); Immature Granulocytes # (auto) 0.05 K/uL (0.00-0.02); Immature Granulocytes % (auto) 0.5 %; Lymphocytes # (auto) 2.19 K/uL (1.2-3.4); Lymphocytes % (auto) 19.9 %; Mean Corpuscular Hemoglobin 33.8 pg (25-34); Mean Corpuscular Hgb Conc 34.2 g/dL (32-36); Mean Corpuscular Volume 98.9 fL (80-100); Mean Platelet Volume 10.1 fL (7.4-10.4); Monocytes # (auto) 1.06 K/uL (0.11-0.59); Monocytes % (auto) 9.7 %; Neutrophils # (auto) 7.55 K/uL (1.4-6.5); Neutrophils % (auto) 68.7 %; Platelet Count 150 K/uL (130-400); RDW Coefficient of Variation 15.7 % (11.5-14.5); RDW Standard Deviation 56.5 fL (36.4-46.3); Red Blood Count 3.67 M/uL (4.7-6.1); White Blood Count 10.98 K/uL (4.8-10.8)
[2020-08-30 06:36] LABS: INR 3.4 (0.9-1.1); Prothrombin Time 33.9 Seconds (9.0-12.0)
[2020-08-30 07:05] LABS: Albumin Level 2.3 gm/dl (3.4-5.0); BUN Creatinine Ratio 14.4 (10-20); Calcium 8.6 mg/dl (8.5-10.1); Creatinine Clr Calc Pharmacy 102.6 ml/min; Est GFR (African American) 91.5; Magnesium 2.1 mg/dl (1.8-2.4); Potassium 3.5 mmol/L (3.5-5.1)
[2020-08-30 07:07] LABS: Albumin Globulin Ratio 0.6 (0.9-2); Bilirubin,Total 0.4 mg/dl (0.2-1); Globulin 4.2 gm/dl (2.5-4.0); Total Protein 6.5 gm/dl (6.4-8.2)
[2020-08-30 07:28] LABS: Estimated Average Glucose 177 mg/dl; Hemoglobin A1C 7.8 % (4.5-5.6)
[2020-08-30] MEDS: MULTIVITAMIN TAB PO SCH (08:01)
[2020-08-30] MEDS: amLODIPine BESYLATE 5 MG TAB PO SCH (08:01)
[2020-08-30] MEDS: LACTULOSE SYRUP 30 GM/45 ML UDP PO SCH ×4 (08:01→21:14)
[2020-08-30] MEDS: CHOLECALCIFEROL 1,000 UNITS 25 MCG TAB PO SCH (08:01)
[2020-08-30] MEDS: GABAPENTIN 100 MG CAP PO SCH ×2 (08:01→21:18)
[2020-08-30] MEDS: TOPIRAMATE 100 MG TAB PO SCH ×2 (08:01→21:16)
[2020-08-30] MEDS: POTASSIUM CHLORIDE CRTAB 20 MEQ TABCR PO SCH (08:02)
[2020-08-30] MEDS: PHENYTOIN SODIUM ER 100 MG CAP PO SCH ×2 (08:02→21:15)
[2020-08-30] MEDS: DIVALPROEX DELAY RELEASE 500 MG TAB PO SCH ×3 (08:02→21:14)
[2020-08-30] MEDS: CALCIUM 600MG + VIT D 400 IU TAB PO SCH (08:02)
[2020-08-30] MEDS: FUROSEMIDE 20 MG TAB PO SCH (08:02)
[2020-08-30] MEDS: ATORVASTATIN 40 MG TAB PO SCH (08:02)
--- NOTE | 2020-08-30 08:04 | Hospitalist Progress Note ---
Date of Service August 30, 2020 Assessment & Plan (1) Altered mental status: (2) Weakness: (3) UTI (urinary tract infection): Pyelonephritis This is a 59-year-old male who has significant past medical history of T2DM, Diastolic CHF, generalized convulsive epilepsy, HTN, HLD, venous insufficiency, lymphedema, history of DVT anticoagulated on warfarin, hyperammonemia on lactulose secondary to Chronic liver disease who presents w/ altered mental status and weakness x3 days. Urine culture outpt 08/26/20 grew > 100k klebsiella pneumoniae. Had been on keflex as outpt, last dose 08/28 pm. Urinalysis on admission much improved. He does have mild elevation in WBC and procalcitonin but appears UTI is improving. Per sister patient is more confused than baseline, on admission alert and oriented x2. Sepsis still in differential and blood cultures are pending. Admit to med telemetry Continue IV Rocephin due to reported increased confusion despite improvement in urinalysis until blood cultures result Await blood cultures Received 500 IVF in ED -do not feel further IV fluid warranted at this time Consult PT/OT Obtain CT abdomen pelvis IV contrast-during previous hospitalization diagnosed with pneumatosis intestinalis. Seen and evaluated by general surgery and treated conservatively. continue lactulose for hyperammonemia in setting of chronic liver disease - no evidence of hepatic encephalopathy CT currently showing pneumatosis coli again but decreased from previous study in July. Heterogeneous mildly decreased enhancement of the interpolar left kidney is noted in conjunction with perinephric stranding, urethral thickening and enh ancement with mild hydroureteronephrosis. No obstructing ureteral calculus or lesion. Findings are suggestive of an ascending infection with pyelonephritis. Correlate with urinalysis. Partial distention of the urinary bladder with mild wall thickening. This could also be correlated with urinalysis to exclude cystitis. No bowel obstruction or bowel wall thickening. Normal appendix. (4) T2DM (type 2 diabetes mellitus): With hyperglycemia Last A1c 04/07/2020 6.8, obtain A1c in a.m. Hold Tradjenta and glipizide Lantus/NovoLog per protocol (5) Seizure disorder: Continue Depakote, Dilantin and Topamax No evidence of seizure activity (6) 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 (deep vein thrombosis): continue warfarin INR therapeutic (7) Lymphedema: hx of venous stasis, dvts, lymphedema and diastolic CHF Encourage SHAYAN stockings. Daily weights and strict I's and O's. Continue Lasix potassium supplement He does have hypoalbuminemia which could be contributing, consult dietitian (8) History of 2019 novel coronavirus disease (COVID-19): hospitalized 07/23/20-08/09/20 sepsis 2/2 to covid - 19 PNA treated with IV remdesivir, convalescent plasma and decadron cxr shows improving airspace opacities (9) DVT prophylaxis: SCD/TEDS continue warfarin, 7.5mg saturday, 5mg all other days INR 2.3 Disposition: admit to [facility] tele Follow up: PCP Dr. Arroyo upon discharge FULL CODE - admitting team discussed with Sister Karen, Admission and Anticipated Discharge Date Admission Date: August 29, 2020 Subjective Pt seen in follow up of AMS, weakness, UTI. Currently pt is laying in bed in NAD, and answering questions appropriately. Denies fever, chills, chest pain, shortness of breath, dysuria. Review of Systems Review of Systems: All systems reviewed & are unremarkable except as noted in HPI & below Constitutional: no fever and no chills Respiratory: no cough and no dyspnea Cardiovascular: no chest pain and no palpitations Gastrointestinal: no abdominal pain, no nausea and no vomiting Genitourinary: no dysuria Physical Exam Physical Exam: Constitutional: WD/WN, obese, male, vitals as above, laying in bed in NAD Head: Normocephalic, Atraumatic Eyes: PERRL, conjunctivae normal, anicteric sclerae ENMT: external ear and nose normal, oropharynx normal Neck: trachea midline, no thyromegaly normal visual inspection Respiratory: normal respiratory effort, lungs clear to auscultation, no wheeze, rales, rhonchi. Normal insp/exp effort, no accessory muscle use Cardiovascular: RRR, no murmur, bilateral lower extremity +1 lymphedema with venous stasis Vessels: no JVD or carotid bruit Chest: normal inspection of chest Abdomen: Protuberant abdomen, normal bowel sounds, soft, nontender Musculoskeletal: no cyanosis or clubbing, extremities motor strength 5/5 Skin: no rashes, warm and dry normal turgor Neurologic: PERRL, EOMI,no face palsy, no dysarthria CN's II-XI intact bilaterally and moves all extremities Psychiatric: A+Ox3, euthymic affect Results & Data Results & Data ([facility]) Vital Signs (Past 12 Hours) Vital Signs Temp Pulse Pulse Resp BP Pulse Ox 08/30/20 04:12 36.8 C 95 H 18 127/68 96 08/30/20 03:00 95 H 08/29/20 23:00 37.7 C H 102 H 18 133/70 97 08/29/20 20:16 37 C 93 H 18 126/69 98 Laboratory Results 08/30/20 08/30/20 08/30/20 Range/Units 07:43 05:53 05:53 WBC (4.8-10.8) K/uL RBC (4.7-6.1) M/uL Hgb (14.0-18.0) g/dL Hct (42-52) % MCV (80-100) fL MCH (25-34) pg MCHC (32-36) g/dL RDW Std Deviation (36.4-46.3) fL RDW Coeff of Pepper (11.5-14.5) % Plt Count (130-400) K/uL MPV (7.4-10.4) fL Immature Gran % (Auto) % Neut % (Auto) % Lymph % (Auto) % [place] % (Auto) % Eos % (Auto) % Baso % (Auto) % Neut # (Auto) (1.4-6.5) K/uL Lymph # (Auto) (1.2-3.4) K/uL [place] # (Auto) (0.11-0.59) K/uL Eos # (Auto) (0-0.5) K/uL Baso # (Auto) (0-0.2) K/uL Immature Gran # (Auto) (0.00-0.02) K/uL PT (9.0-12.0) Seconds INR (0.9-1.1) APTT (21.0-31.0) Seconds PTT Ratio Sodium (136-145) mmol/L Potassium (3.5-5.1) mmol/L Chloride (98-107) mmol/L Carbon Dioxide (21-32) mmol/L Anion Gap (3-11) BUN (7-18) mg/dl Creatinine (0.6-1.4) mg/dl Est Cr Clr Drug Dosing ml/min Est GFR ( Amer) Est GFR (Non-Af Amer) BUN/Creatinine Ratio (10-20) Glucose (70-99) mg/dl POC Glucose 202 H (70-99) mg/dl Estimat Average Glucose 177 mg/dl Hemoglobin A1c 7.8 H (4.5-5.6) % Lactate (0.4-2.0) mmol/L Calcium (8.5-10.1) mg/dl Phosphorus (2.5-4.9) mg/dl Magnesium (1.8-2.4) mg/dl Total Bilirubin (0.2-1) mg/dl Direct Bilirubin (0-0.2) mg/dl AST (15-37) U/L ALT (12-78) U/L Alkaline Phosphatase (45-117) U/L Ammonia (11-32) umol/L Troponin I (0-0.045) ng/ml NT-Pro-B Natriuret Pep (0-900) pg/ml Total Protein (6.4-8.2) gm/dl Albumin (3.4-5.0) gm/dl Globulin (2.5-4.0) gm/dl Albumin/Globulin Ratio (0.9-2) Procalcitonin 0.63 H (0-0.5) ng/ml TSH (0.300-4.500) uIu/ml Urine Color Urine Appearance (Clear) Urine pH (4.5-7.5) Ur Specific [place] (1.000-1.030) Urine Protein (Negative) Urine Glucose (UA) (Negative) Urine Ketones (Negative) Urine Blood (Negative) Urine Nitrite (Negative) Urine Bilirubin (Negative) Urine Urobilinogen (Negative) Ur Leukocyte Esterase (Negative) Urine WBC (Auto) (0-5) /hpf Urine RBC (Auto) (0-4) /hpf U Hyaline Cast (Auto) (0-5) /lpf U Epithel Cells (Auto) (0-5) /lpf Urine Bacteria (Auto) (Negative) Phenytoin (10-20) mcg/ml Valproic Acid (50-100) mcg/ml 08/30/20 08/30/20 08/30/20 Range/Units 05:53 05:53 05:53 WBC 10.98 H (4.8-10.8) K/uL RBC 3.67 L (4.7-6.1) M/uL Hgb 12.4 L (14.0-18.0) g/dL Hct 36.3 L (42-52) % MCV 98.9 (80-100) fL MCH 33.8 (25-34) pg MCHC 34.2 (32-36) g/dL RDW Std Deviation 56.5 H (36.4-46.3) fL RDW Coeff of Pepper 15.7 H (11.5-14.5) % Plt Count 150 (130-400) K/uL MPV 10.1 (7.4-10.4) fL Immature Gran % (Auto) 0.5 % Neut % (Auto) 68.7 % Lymph % (Auto) 19.9 % Hitchcock % (Auto) 9.7 % Eos % (Auto) 1.0 % Baso % (Auto) 0.2 % Neut # (Auto) 7.55 H (1.4-6.5) K/uL Lymph # (Auto) 2.19 (1.2-3.4) K/uL [place] # (Auto) 1.06 H (0.11-0.59) K/uL Eos # (Auto) 0.11 (0-0.5) K/uL Baso # (Auto) 0.02 (0-0.2) K/uL Immature Gran # (Auto) 0.05 H (0.00-0.02) K/uL PT 33.9 H (9.0-12.0) Seconds INR 3.4 H (0.9-1.1) APTT (21.0-31.0) Seconds PTT Ratio Sodium 145 (136-145) mmol/L Potassium 3.5 (3.5-5.1) mmol/L Chloride 118 H (98-107) mmol/L Carbon Dioxide 18 L (21-32) mmol/L Anion Gap 9.0 (3-11) BUN 15 (7-18) mg/dl Creatinine 1.02 (0.6-1.4) mg/dl Est Cr Clr Drug Dosing 102.6 ml/min Est GFR ( Amer) 91.5 Est GFR (Non-Af Amer) 79.0 BUN/Creatinine Ratio 14.4 (10-20) Glucose 160 H (70-99) mg/dl POC Glucose (70-99) mg/dl Estimat Average Glucose mg/dl Hemoglobin A1c (4.5-5.6) % Lactate (0.4-2.0) mmol/L Calcium 8.6 (8.5-10.1) mg/dl Phosphorus (2.5-4.9) mg/dl Magnesium 2.1 (1.8-2.4) mg/dl Total Bilirubin 0.4 (0.2-1) mg/dl Direct Bilirubin (0-0.2) mg/dl AST 36 (15-37) U/L ALT 27 (12-78) U/L Alkaline Phosphatase 91 (45-117) U/L Ammonia (11-32) umol/L Troponin I (0-0.045) ng/ml NT-Pro-B Natriuret Pep (0-900) pg/ml Total Protein 6.5 (6.4-8.2) gm/dl Albumin 2.3 L (3.4-5.0) gm/dl Globulin 4.2 H (2.5-4.0) gm/dl Albumin/Globulin Ratio 0.6 L (0.9-2) Procalcitonin (0-0.5) ng/ml TSH (0.300-4.500) uIu/ml Urine Color Urine Appearance (Clear) Urine pH (4.5-7.5) Ur Specific [place] (1.000-1.030) Urine Protein (Negative) Urine Glucose (UA) (Negative) Urine Ketones (Negative) Urine Blood (Negative) Urine Nitrite (Negative) Urine Bilirubin (Negative) Urine Urobilinogen (Negative) Ur Leukocyte Esterase (Negative) Urine WBC (Auto) (0-5) /hpf Urine RBC (Auto) (0-4) /hpf U Hyaline Cast (Auto) (0-5) /lpf U Epithel Cells (Auto) (0-5) /lpf Urine Bacteria (Auto) (Negative) Phenytoin (10-20) mcg/ml Valproic Acid (50-100) mcg/ml 08/29/20 08/29/20 08/29/20 Range/Units 20:23 16:19 10:05 WBC (4.8-10.8) K/uL RBC (4.7-6.1) M/uL Hgb (14.0-18.0) g/dL Hct (42-52) % MCV (80-100) fL MCH (25-34) pg MCHC (32-36) g/dL RDW Std Deviation (36.4-46.3) fL RDW Coeff of Pepper (11.5-14.5) % Plt Count (130-400) K/uL MPV (7.4-10.4) fL Immature Gran % (Auto) % Neut % (Auto) % Lymph % (Auto) % [place] % (Auto) % Eos % (Auto) % Baso % (Auto) % Neut # (Auto) (1.4-6.5) K/uL Lymph # (Auto) (1.2-3.4) K/uL [place] # (Auto) (0.11-0.59) K/uL Eos # (Auto) (0-0.5) K/uL Baso # (Auto) (0-0.2) K/uL Immature Gran # (Auto) (0.00-0.02) K/uL PT (9.0-12.0) Seconds INR (0.9-1.1) APTT (21.0-31.0) Seconds PTT Ratio Sodium (136-145) mmol/L Potassium (3.5-5.1) mmol/L Chloride (98-107) mmol/L Carbon Dioxide (21-32) mmol/L Anion Gap (3-11) BUN (7-18) mg/dl Creatinine (0.6-1.4) mg/dl Est Cr Clr Drug Dosing ml/min Est GFR ( Amer) Est GFR (Non-Af Amer) BUN/Creatinine Ratio (10-20) Glucose (70-99) mg/dl POC Glucose 159 H 176 H (70-99) mg/dl Estimat Average Glucose mg/dl Hemoglobin A1c (4.5-5.6) % Lactate (0.4-2.0) mmol/L Calcium (8.5-10.1) mg/dl Phosphorus (2.5-4.9) mg/dl Magnesium (1.8-2.4) mg/dl Total Bilirubin (0.2-1) mg/dl Direct Bilirubin (0-0.2) mg/dl AST (15-37) U/L ALT (12-78) U/L Alkaline Phosphatase (45-117) U/L Ammonia (11-32) umol/L Troponin I (0-0.045) ng/ml NT-Pro-B Natriuret Pep (0-900) pg/ml Total Protein (6.4-8.2) gm/dl Albumin (3.4-5.0) gm/dl Globulin (2.5-4.0) gm/dl Albumin/Globulin Ratio (0.9-2) Procalcitonin (0-0.5) ng/ml TSH (0.300-4.500) uIu/ml Urine Color Yellow Urine Appearance Clear (Clear) Urine pH 7.0 (4.5-7.5) Ur Specific [place] 1.012 (1.000-1.030) Urine Protein Trace H (Negative) Urine Glucose (UA) Negative (Negative) Urine Ketones Negative (Negative) Urine Blood Negative (Negative) Urine Nitrite Negative (Negative) Urine Bilirubin Negative (Negative) Urine Urobilinogen Negative (Negative) Ur Leukocyte Esterase Negative (Negative) Urine WBC (Auto) 1-5 (0-5) /hpf Urine RBC (Auto) 0-4 (0-4) /hpf U Hyaline Cast (Auto) 0 (0-5) /lpf U Epithel Cells (Auto) 5-10 H (0-5) /lpf Urine Bacteria (Auto) Negative (Negative) Phenytoin (10-20) mcg/ml Valproic Acid (50-100) mcg/ml 08/29/20 08/29/20 08/29/20 Range/Units 09:46 09:46 09:46 WBC 12.53 H (4.8-10.8) K/uL RBC 3.65 L (4.7-6.1) M/uL Hgb 12.2 L (14.0-18.0) g/dL Hct 36.4 L (42-52) % MCV 99.7 (80-100) fL MCH 33.4 (25-34) pg MCHC 33.5 (32-36) g/dL RDW Std Deviation 56.8 H (36.4-46.3) fL RDW Coeff of Pepper 15.6 H (11.5-14.5) % Plt Count 118 L (130-400) K/uL MPV 10.0 (7.4-10.4) fL Immature Gran % (Auto) 0.6 % Neut % (Auto) 68.4 % Lymph % (Auto) 19.7 % [place] % (Auto) 10.4 % Eos % (Auto) 0.7 % Baso % (Auto) 0.2 % Neut # (Auto) 8.57 H (1.4-6.5) K/uL Lymph # (Auto) 2.47 (1.2-3.4) K/uL [place] # (Auto) 1.30 H (0.11-0.59) K/uL Eos # (Auto) 0.09 (0-0.5) K/uL Baso # (Auto) 0.02 (0-0.2) K/uL Immature Gran # (Auto) 0.08 H (0.00-0.02) K/uL PT 23.6 H (9.0-12.0) Seconds INR 2.3 H (0.9-1.1) APTT 42.8 H (21.0-31.0) Seconds PTT Ratio 1.5 Sodium (136-145) mmol/L Potassium (3.5-5.1) mmol/L Chloride (98-107) mmol/L Carbon Dioxide (21-32) mmol/L Anion Gap (3-11) BUN (7-18) mg/dl Creatinine (0.6-1.4) mg/dl Est Cr Clr Drug Dosing ml/min Est GFR ( Amer) Est GFR (Non-Af Amer) BUN/Creatinine Ratio (10-20) Glucose (70-99) mg/dl POC Glucose (70-99) mg/dl Estimat Average Glucose mg/dl Hemoglobin A1c (4.5-5.6) % Lactate 1.4 (0.4-2.0) mmol/L Calcium (8.5-10.1) mg/dl Phosphorus (2.5-4.9) mg/dl Magnesium (1.8-2.4) mg/dl Total Bilirubin (0.2-1) mg/dl Direct Bilirubin (0-0.2) mg/dl AST (15-37) U/L ALT (12-78) U/L Alkaline Phosphatase (45-117) U/L Ammonia (11-32) umol/L Troponin I (0-0.045) ng/ml NT-Pro-B Natriuret Pep (0-900) pg/ml Total Protein (6.4-8.2) gm/dl Albumin (3.4-5.0) gm/dl Globulin (2.5-4.0) gm/dl Albumin/Globulin Ratio (0.9-2) Procalcitonin (0-0.5) ng/ml TSH (0.300-4.500) uIu/ml Urine Color Urine Appearance (Clear) Urine pH (4.5-7.5) Ur Specific [place] (1.000-1.030) Urine Protein (Negative) Urine Glucose (UA) (Negative) Urine Ketones (Negative) Urine Blood (Negative) Urine Nitrite (Negative) Urine Bilirubin (Negative) Urine Urobilinogen (Negative) Ur Leukocyte Esterase (Negative) Urine WBC (Auto) (0-5) /hpf Urine RBC (Auto) (0-4) /hpf U Hyaline Cast (Auto) (0-5) /lpf U Epithel Cells (Auto) (0-5) /lpf Urine Bacteria (Auto) (Negative) Phenytoin (10-20) mcg/ml Valproic Acid (50-100) mcg/ml 08/29/20 08/29/20 08/29/20 Range/Units 09:46 09:46 09:46 WBC (4.8-10.8) K/uL RBC (4.7-6.1) M/uL Hgb (14.0-18.0) g/dL Hct (42-52) % MCV (80-100) fL MCH (25-34) pg MCHC (32-36) g/dL RDW Std Deviation (36.4-46.3) fL RDW Coeff of Pepper (11.5-14.5) % Plt Count (130-400) K/uL MPV (7.4-10.4) fL Immature Gran % (Auto) % Neut % (Auto) % Lymph % (Auto) % [place] % (Auto) % Eos % (Auto) % Baso % (Auto) % Neut # (Auto) (1.4-6.5) K/uL Lymph # (Auto) (1.2-3.4) K/uL [place] # (Auto) (0.11-0.59) K/uL Eos # (Auto) (0-0.5) K/uL Baso # (Auto) (0-0.2) K/uL Immature Gran # (Auto) (0.00-0.02) K/uL PT (9.0-12.0) Seconds INR (0.9-1.1) APTT (21.0-31.0) Seconds PTT Ratio Sodium 141 (136-145) mmol/L Potassium 3.8 (3.5-5.1) mmol/L Chloride 113 H (98-107) mmol/L Carbon Dioxide 19 L (21-32) mmol/L Anion Gap 9.0 (3-11) BUN 18 (7-18) mg/dl Creatinine 1.13 (0.6-1.4) mg/dl Est Cr Clr Drug Dosing 92.4 ml/min Est GFR ( Amer) 80.9 Est GFR (Non-Af Amer) 69.8 BUN/Creatinine Ratio 15.5 (10-20) Glucose 190 H (70-99) mg/dl POC Glucose (70-99) mg/dl Estimat Average Glucose mg/dl Hemoglobin A1c (4.5-5.6) % Lactate (0.4-2.0) mmol/L Calcium 8.5 (8.5-10.1) mg/dl Phosphorus 3.1 (2.5-4.9) mg/dl Magnesium 1.9 (1.8-2.4) mg/dl Total Bilirubin 0.4 (0.2-1) mg/dl Direct Bilirubin 0.1 (0-0.2) mg/dl AST 16 (15-37) U/L ALT 21 (12-78) U/L Alkaline Phosphatase 88 (45-117) U/L Ammonia (11-32) umol/L Troponin I < 0.015 (0-0.045) ng/ml NT-Pro-B Natriuret Pep 656 (0-900) pg/ml Total Protein 6.7 (6.4-8.2) gm/dl Albumin 2.4 L (3.4-5.0) gm/dl Globulin 4.3 H (2.5-4.0) gm/dl Albumin/Globulin Ratio 0.6 L (0.9-2) Procalcitonin 0.74 H (0-0.5) ng/ml TSH 2.640 (0.300-4.500) uIu/ml Urine Color Urine Appearance (Clear) Urine pH (4.5-7.5) Ur Specific [place] (1.000-1.030) Urine Protein (Negative) Urine Glucose (UA) (Negative) Urine Ketones (Negative) Urine Blood (Negative) Urine Nitrite (Negative) Urine Bilirubin (Negative) Urine Urobilinogen (Negative) Ur Leukocyte Esterase (Negative) Urine WBC (Auto) (0-5) /hpf Urine RBC (Auto) (0-4) /hpf U Hyaline Cast (Auto) (0-5) /lpf U Epithel Cells (Auto) (0-5) /lpf Urine Bacteria (Auto) (Negative) Phenytoin 9.0 L (10-20) mcg/ml Valproic Acid 53 (50-100) mcg/ml 08/29/20 Range/Units 09:46 WBC (4.8-10.8) K/uL RBC (4.7-6.1) M/uL Hgb (14.0-18.0) g/dL Hct (42-52) % MCV (80-100) fL MCH (25-34) pg MCHC (32-36) g/dL RDW Std Deviation (36.4-46.3) fL RDW Coeff of Pepper (11.5-14.5) % Plt Count (130-400) K/uL MPV (7.4-10.4) fL Immature Gran % (Auto) % Neut % (Auto) % Lymph % (Auto) % [place] % (Auto) % Eos % (Auto) % Baso % (Auto) % Neut # (Auto) (1.4-6.5) K/uL Lymph # (Auto) (1.2-3.4) K/uL [place] # (Auto) (0.11-0.59) K/uL Eos # (Auto) (0-0.5) K/uL Baso # (Auto) (0-0.2) K/uL Immature Gran # (Auto) (0.00-0.02) K/uL PT (9.0-12.0) Seconds INR (0.9-1.1) APTT (21.0-31.0) Seconds PTT Ratio Sodium (136-145) mmol/L Potassium (3.5-5.1) mmol/L Chloride (98-107) mmol/L Carbon Dioxide (21-32) mmol/L Anion Gap (3-11) BUN (7-18) mg/dl Creatinine (0.6-1.4) mg/dl Est Cr Clr Drug Dosing ml/min Est GFR ( Amer) Est GFR (Non-Af Amer) BUN/Creatinine Ratio (10-20) Glucose (70-99) mg/dl POC Glucose (70-99) mg/dl Estimat Average Glucose mg/dl Hemoglobin A1c (4.5-5.6) % Lactate (0.4-2.0) mmol/L Calcium (8.5-10.1) mg/dl Phosphorus (2.5-4.9) mg/dl Magnesium (1.8-2.4) mg/dl Total Bilirubin (0.2-1) mg/dl Direct Bilirubin (0-0.2) mg/dl AST (15-37) U/L ALT (12-78) U/L Alkaline Phosphatase (45-117) U/L Ammonia 30.9 (11-32) umol/L Troponin I (0-0.045) ng/ml NT-Pro-B Natriuret Pep (0-900) pg/ml Total Protein (6.4-8.2) gm/dl Albumin (3.4-5.0) gm/dl Globulin (2.5-4.0) gm/dl Albumin/Globulin Ratio (0.9-2) Procalcitonin (0-0.5) ng/ml TSH (0.300-4.500) uIu/ml Urine Color Urine Appearance (Clear) Urine pH (4.5-7.5) Ur Specific [place] (1.000-1.030) Urine Protein (Negative) Urine Glucose (UA) (Negative) Urine Ketones (Negative) Urine Blood (Negative) Urine Nitrite (Negative) Urine Bilirubin (Negative) Urine Urobilinogen (Negative) Ur Leukocyte Esterase (Negative) Urine WBC (Auto) (0-5) /hpf Urine RBC (Auto) (0-4) /hpf U Hyaline Cast (Auto) (0-5) /lpf U Epithel Cells (Auto) (0-5) /lpf Urine Bacteria (Auto) (Negative) Phenytoin (10-20) mcg/ml Valproic Acid (50-100) mcg/ml Medications Administered Current Inpatient Medications Acetaminophen (Acetaminophen 325 Mg Tab) 650 mg PO Q4H PRN PRN Reason: Pain or Fever Stop: 09/28/20 14:21 Last Admin: 08/29/20 16:12 Dose: 650 mg Documented by: Al Hydrox/Mg Hydrox/Simethicone (Aluminum/Magnesium Susp 30 Ml Udc) 15 ml PO Q4H PRN PRN Reason: Dyspepsia Stop: 09/28/20 14:21 Allopurinol (Allopurinol 300 Mg Tab) 450 mg PO DAILY SUSANA Stop: 09/29/20 08:59 Amlodipine Besylate (Amlodipine Besylate 5 Mg Tab) 5 mg PO DAILY SUSANA Stop: 09/28/20 14:59 Last Admin: 08/29/20 15:20 Dose: 5 mg Documented by: Atorvastatin Calcium (Atorvastatin 40 Mg Tab) 80 mg PO DAILY SUSANA Stop: 09/29/20 08:59 Dextrose (Dextrose 50% 50 Ml Syringe) 25 - 50 ml IV UD PRN; Protocol PRN Reason: Hypoglycemia Protocol Stop: 09/28/20 14:21 Divalproex Sodium (Divalproex Delay Release 500 Mg Tab) 1,000 mg PO BID SUSANA Stop: 09/28/20 20:59 Last Admin: 08/29/20 20:27 Dose: 1,000 mg Documented by: Divalproex Sodium (Divalproex Delay Release 500 Mg Tab) 500 mg PO DAILY@1500 SUSANA Stop: 09/28/20 14:59 Last Admin: 08/29/20 15:34 Dose: 500 mg Documented by: Furosemide (Furosemide 20 Mg Tab) 20 mg PO DAILY SUSANA Stop: 09/29/20 08:59 Gabapentin (Gabapentin 400 Mg Cap) 400 mg PO HS SUSANA Stop: 09/28/20 20:59 Last Admin: 08/29/20 20:26 Dose: 400 mg Documented by: Gabapentin (Gabapentin 100 Mg Cap) 100 mg PO BID SUSANA Stop: 09/28/20 20:59 Last Admin: 08/29/20 20:29 Dose: 100 mg Documented by: Glucagon (Glucagon For Inj 1 Mg Vial) 1 mg SQ UD PRN; Protocol PRN Reason: Hypoglycemia Protocol Stop: 09/28/20 14:21 Glucose (Glucose 10 Tabs/Tube) 4 - 8 tabs PO UD PRN; Protocol PRN Reason: Hypoglycemia Protocol Stop: 09/28/20 14:21 Glucose (Glucose 40% Gel 15 Gm Tube) 15 - 30 gm PO UD PRN; Protocol PRN Reason: Hypoglycemia Protocol Stop: 09/28/20 14:21 Ceftriaxone Sodium 2,000 mg/ (Dextrose) 70 mls @ 100 mls/hr IV Q24H [facility]; Protocol Stop: 09/09/20 11:59 Insulin Aspart (Insulin Aspart 100 Units/Ml 3 Ml Pen) 0 units SC ACHS [facility] Stop: 09/28/20 16:29 Last Admin: 08/29/20 20:28 Dose: 1 units Documented by: Insulin Glargine (Insulin Glargine Solostar 100 Units/Ml 3 Ml Pen) 0 - 10 units SC BID SUSANA; Protocol Stop: 09/28/20 20:59 Last Admin: 08/29/20 20:28 Dose: 5 units Documented by: Lactulose (Lactulose Syrup 30 Gm/45 Ml Udp) 30 gm PO QID SUSANA Stop: 09/28/20 16:59 Last Admin: 08/29/20 20:25 Dose: 30 gm Documented by: Magnesium Hydroxide (Magnesium Hydroxide Susp 30 Ml Udc) 30 ml PO Q12H PRN PRN Reason: Constipation Stop: 09/28/20 14:21 Miscellaneous (Carbohydrates For Hypoglycemia ) 15 - 30 gm PO UD PRN PRN Reason: Hypoglycemia Protocol Stop: 09/28/20 14:21 Multivitamins (Multivitamin Tab) 1 tab PO DAILY [facility] Stop: 09/29/20 08:59 Multivitamins/Minerals (Calcium 600mg + Vit D 400 Iu Tab) 1 tab PO DAILY [facility] Stop: 09/29/20 08:59 Ondansetron HCl (Ondansetron Inj 2 Mg/Ml 2 Ml Vial) 4 mg IV Q6H PRN PRN Reason: Nausea Stop: 09/28/20 14:21 Phenytoin Sodium (Phenytoin Sodium Er 100 Mg Cap) 400 mg PO BID [facility] Stop: 09/28/20 20:59 Last Admin: 08/29/20 20:26 Dose: 400 mg Documented by: Polyethylene Glycol (Polyethylene (Miralax) 17 Gm Pack) 17 gm PO DAILY PRN PRN Reason: Constipation Stop: 09/28/20 14:21 Potassium Chloride (Potassium Chloride Crtab 20 Meq Tabcr) 40 meq PO DAILY [facility] Stop: 09/28/20 14:59 Last Admin: 08/29/20 15:34 Dose: 40 meq Documented by: Tamsulosin HCl (Tamsulosin Hcl 0.4 Mg Cap) 0.4 mg PO HS [facility] Stop: 09/28/20 20:59 Last Admin: 08/29/20 20:26 Dose: 0.4 mg Documented by: Topiramate (Topiramate 100 Mg Tab) 200 mg PO BID [facility] Stop: 09/28/20 20:59 Last Admin: 08/29/20 20:29 Dose: 200 mg Documented by: Vitamin D (Cholecalciferol 1,000 Units 25 Mcg Tab) 1,000 units PO DAILY [facility] Stop: 09/29/20 08:59 Warfarin Sodium (Warfarin Sod 7.5 Mg Tab) 7.5 mg PO MO@1600 [facility] Stop: 09/28/20 15:59 Last Admin: 08/29/20 16:12 Dose: 7.5 mg Documented by: Warfarin Sodium (Warfarin Sod 5 Mg Tab) 5 mg PO [id number]@1600 [facility] Stop: 09/29/20 15:59 (1) Altered mental status Altered mental status type: unspecified Qualified Code(s): R41.82 - Altered mental status, unspecified
[2020-08-30] MEDS: INSULIN GLARGINE SOLOSTAR 100 UNITS/ML 3 ML PEN SC SCH ×2 (08:07→21:16)
[2020-08-30] MEDS: INSULIN ASPART 100 UNITS/ML 3 ML PEN SC SCH ×4 (08:07→21:18)
[2020-08-30] MEDS: allopurinoL 300 MG TAB PO SCH (09:05)
[2020-08-30] MEDS: cefTRIAXone SODIUM 2,000 MG in DEXTROSE 5% 50 ML IV SCH (12:09)
[2020-08-30] MEDS ORDERED: POTASSIUM CHLORIDE CRTAB 20 MEQ TABCR PO STA (14:11)
[2020-08-30] MEDS: WARFARIN SOD 5 MG TAB PO SCH (17:20)
[2020-08-30] MEDS: GABAPENTIN 400 MG CAP PO SCH (21:14)
[2020-08-30] MEDS: TAMSULOSIN HCL 0.4 MG CAP PO SCH (21:16)
[2020-08-30] MEDS: ACETAMINOPHEN 325 MG TAB PO PRN (23:55)
[2020-08-31 06:16] LABS: Hematocrit (blood only) 33.9 % (42-52); Hemoglobin 11.5 g/dL (14.0-18.0); Mean Corpuscular Hemoglobin 33.6 pg (25-34); Mean Corpuscular Hgb Conc 33.9 g/dL (32-36); Mean Corpuscular Volume 99.1 fL (80-100); Mean Platelet Volume 9.9 fL (7.4-10.4); Platelet Count 143 K/uL (130-400); RDW Coefficient of Variation 15.6 % (11.5-14.5); RDW Standard Deviation 56.1 fL (36.4-46.3); Red Blood Count 3.42 M/uL (4.7-6.1); White Blood Count 7.46 K/uL (4.8-10.8)
[2020-08-31 06:25] LABS: INR 2.8 (0.9-1.1); Prothrombin Time 28.2 Seconds (9.0-12.0)
[2020-08-31 06:46] LABS: BUN Creatinine Ratio 17.4 (10-20); Calcium 8.5 mg/dl (8.5-10.1); Creatinine Clr Calc Pharmacy 113.5 ml/min; Est GFR (African American) 103.7; Est GFR (Non-African American) 89.5; Potassium 3.4 mmol/L (3.5-5.1)
[2020-08-31] MEDS: ACETAMINOPHEN 325 MG TAB PO PRN ×4 (07:25→23:38)
[2020-08-31] MEDS: CALCIUM 600MG + VIT D 400 IU TAB PO SCH (07:36)
[2020-08-31] MEDS: PHENYTOIN SODIUM ER 100 MG CAP PO SCH ×2 (07:36→21:15)
[2020-08-31] MEDS: ATORVASTATIN 40 MG TAB PO SCH (07:36)
[2020-08-31] MEDS: DIVALPROEX DELAY RELEASE 500 MG TAB PO SCH ×3 (07:36→21:14)
[2020-08-31] MEDS: LACTULOSE SYRUP 30 GM/45 ML UDP PO SCH ×4 (07:36→21:14)
[2020-08-31] MEDS: FUROSEMIDE 20 MG TAB PO SCH (07:36)
[2020-08-31] MEDS: POTASSIUM CHLORIDE CRTAB 20 MEQ TABCR PO SCH (07:36)
[2020-08-31] MEDS: CHOLECALCIFEROL 1,000 UNITS 25 MCG TAB PO SCH (07:37)
[2020-08-31] MEDS: MULTIVITAMIN TAB PO SCH (07:37)
[2020-08-31] MEDS: TOPIRAMATE 100 MG TAB PO SCH ×2 (07:37→21:18)
[2020-08-31] MEDS: GABAPENTIN 100 MG CAP PO SCH ×2 (07:37→21:16)
[2020-08-31] MEDS: allopurinoL 300 MG TAB PO SCH (07:37)
[2020-08-31] MEDS: amLODIPine BESYLATE 5 MG TAB PO SCH (07:37)
[2020-08-31] MEDS: INSULIN ASPART 100 UNITS/ML 3 ML PEN SC SCH ×4 (09:35→21:17)
[2020-08-31] MEDS: INSULIN GLARGINE SOLOSTAR 100 UNITS/ML 3 ML PEN SC SCH ×2 (09:36→21:16)
--- NOTE | 2020-08-31 12:39 | Hospitalist Progress Note ---
Date of Service August 31, 2020 Assessment & Plan (1) Altered mental status: (2) Weakness: (3) UTI (urinary tract infection): Patient is 59-year-old male with past medical history of diabetes mellitus type 2, generalized convulsive epilepsy, hypertension, hyperlipidemia, heart failure, venous insufficiency, lymphedema, history of DVT on Coumadin, hyperammonemia on lactulose secondary to chronic liver disease presented with altered mental status and generalized weakness that has been going on for the last 3 days. Generalized weak Sent for altered mental status Pyelonephritis His most recent cultures grew Klebsiella pneumonia. Patient was on Keflex as an outpatient. Urinalysis on admission was improved. Patient did have leukocytosis on admission. Blood cultures negative thus far. Continue with ceftriaxone. Chest x-ray negative on admission. CT head without any concerns. Continue to work with PT/OT. Obtain CT abdomen pelvis IV contrast-during previous hospitalization diagnosed with pneumatosis intestinalis. Seen and evaluated by general surgery and treated conservatively. continue lactulose for hyperammonemia in setting of chronic liver disease - no evidence of hepatic encephalopathy CT abdomen/pelvis during this admission revealed Heterogeneous mildly decreased enhancement of the interpolar left kidney is noted in conjunction with perinephric stranding, urethral thickening and enhancement with mild hydroureteronephrosis. No obstructing ureteral calculus or lesion. Findings are suggestive of an ascending infection with pyelonephritis and Pneumatosis coli is again noted within the ascending colon which has decreased from the 07/23/2020 exam. Dental exam is benign. Continue to monitor. (4) T2DM (type 2 diabetes mellitus): Last A1c 04/07/2020 6.8, hemoglobin A1c of 7.8 on 08/30 Hold Tradjenta and glipizide Lantus/NovoLog per protocol. Pulmonary consult for further management. (5) Seizure disorder: Continue with the [facility] REWINDER Depakote, Dilantin and Topamax. (6) 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 (deep vein thrombosis): Continue with [facility] warfarin. INR today at 2.8. With Coumadin 5 mg Saturday/Saturday/Saturday//Saturday/Saturday and 7.5 mg on Saturday (7) Lymphedema: hx of venous stasis, dvts, lymphedema and diastolic CHF Encourage SHAYAN stockings. Daily weights and strict I's and O's. Continue Lasix potassium supplement (8) History of 2019 novel coronavirus disease (COVID-19): hospitalized 07/23/20-08/09/20 sepsis 2/2 to covid - 19 PNA treated with IV remdesivir, convalescent plasma and decadron cxr shows improving airspace opacities (9) DVT prophylaxis: SCD/TEDS [facility] RE[facility]ER coumadin. Follow up: PCP Dr. Arroyo upon discharge FULL CODE - admitting team discussed with Sister Karen, Admission and Anticipated Discharge Date Admission Date: August 30, 2020 Subjective Patient was working with physical therapy upon arrival this morning. He was a wake, alert and oriented. Review of Systems Review of Systems: All systems reviewed & are unremarkable except as noted in HPI & below Physical Exam Physical Exam: General: A&Ox3 HENT: NCAT, MMM, EOMI Eyes: PERRLA Neck: Supple, normal range of motion CVS: normal rate and rhythm Resp: b/l good breath sounds Abdomen: Soft, distended and nontender Extremities: No c/c/e Neuro: face symmetric Skin: warm and dry MSK: normal ROM, no joint swelling/erythema Results & Data Results & Data ([facility]) Vital Signs (Past 12 Hours) Vital Signs Temp Pulse Pulse Resp BP Pulse Ox 08/31/20 11:00 36.6 C 93 H 20 127/69 96 08/31/20 08:00 88 08/31/20 07:00 36.8 C 83 20 144/74 H 98 08/31/20 04:28 36.5 C 85 20 128/71 97 (1) Altered mental status Altered mental status type: unspecified Qualified Code(s): R41.82 - Altered mental status, unspecified
[2020-08-31] MEDS: cefTRIAXone SODIUM 2,000 MG in DEXTROSE 5% 50 ML IV SCH (12:54)
--- NOTE | 2020-08-31 14:46 | Ultrasound Report ---
US venous doppler LE BI CLINICAL HISTORY: Bilateral leg pain COMPARISON STUDY: 08/27/2020 FINDINGS: Real-time and color flow Doppler imaging were performed. Flow was seen within the femoral, popliteal and calf veins with no intraluminal thrombus demonstrated. The saphenous vein is patent. Th ere is chronic fibrous stranding within the left superficial femoral vein. IMPRESSION: 1. No evidence of acute lower extremity DVT 2. Chronic fibrous stranding within the left superficial femoral vein ACT 112: Negative or not required by law. Electronically signed by: Fermín Lr M.D. 08/31/2020 2:45 PM
[2020-08-31] MEDS: WARFARIN SOD 5 MG TAB PO SCH (16:02)
[2020-08-31] MEDS: TAMSULOSIN HCL 0.4 MG CAP PO SCH (21:16)
[2020-08-31] MEDS: GABAPENTIN 400 MG CAP PO SCH (21:16)
[2020-09-01 07:38] LABS: INR 2.4 (0.9-1.1); Prothrombin Time 24.3 Seconds (9.0-12.0)
[2020-09-01] MEDS: LACTULOSE SYRUP 30 GM/45 ML UDP PO SCH ×3 (07:52→16:51)
[2020-09-01] MEDS: DIVALPROEX DELAY RELEASE 500 MG TAB PO SCH ×2 (07:52→16:50)
[2020-09-01] MEDS: CALCIUM 600MG + VIT D 400 IU TAB PO SCH (07:52)
[2020-09-01] MEDS: MULTIVITAMIN TAB PO SCH (07:53)
[2020-09-01] MEDS: FUROSEMIDE 20 MG TAB PO SCH (07:53)
[2020-09-01] MEDS: INSULIN GLARGINE SOLOSTAR 100 UNITS/ML 3 ML PEN SC SCH (07:53)
[2020-09-01] MEDS: POTASSIUM CHLORIDE CRTAB 20 MEQ TABCR PO SCH (07:53)
[2020-09-01] MEDS: PHENYTOIN SODIUM ER 100 MG CAP PO SCH (07:53)
[2020-09-01] MEDS: ATORVASTATIN 40 MG TAB PO SCH (07:53)
[2020-09-01] MEDS: CHOLECALCIFEROL 1,000 UNITS 25 MCG TAB PO SCH (07:54)
[2020-09-01] MEDS: TOPIRAMATE 100 MG TAB PO SCH (07:54)
[2020-09-01] MEDS: GABAPENTIN 100 MG CAP PO SCH (07:54)
[2020-09-01] MEDS: amLODIPine BESYLATE 5 MG TAB PO SCH (07:54)
[2020-09-01] MEDS: allopurinoL 300 MG TAB PO SCH (07:54)
[2020-09-01] MEDS: INSULIN ASPART 100 UNITS/ML 3 ML PEN SC SCH ×3 (07:56→17:05)
[2020-09-01 08:06] LABS: BUN Creatinine Ratio 17.9 (10-20); Calcium 8.6 mg/dl (8.5-10.1); Creatinine Clr Calc Pharmacy 105.1 ml/min; Est GFR (African American) 97.3; Est GFR (Non-African American) 83.9; Potassium 3.5 mmol/L (3.5-5.1)
[2020-09-01] MEDS: ACETAMINOPHEN 325 MG TAB PO PRN (11:02)
[2020-09-01] MEDS: cefTRIAXone SODIUM 2,000 MG in DEXTROSE 5% 50 ML IV SCH (12:23)
[2020-09-01] MEDS: WARFARIN SOD 5 MG TAB PO SCH (16:50)
--- NOTE | 2020-09-03 15:57 | Discharge Summary ---
Date of Service September 03, 2020 Admission HPI Per Admitting Provider This is a 59-year-old male who has significant past medical history of T2DM, generalized convulsive epilepsy, HTN, HLD, venous insufficiency, lymphedema, history of DVT anticoagulated on warfarin, hyperammonemia on lactulose secondary to Chronic liver disease secondary to altered level status and weakness x3 days. Of significance patient had prolonged hospitalization on 07/23/2020-08/09/2020 secondary to sepsis in setting of COVID PNA, Pneumatosis intestinalisis tx conservatively, Acute on chronic diastolic CHF and metabolic encephalopathy. He was treated with IV Decadron, remdesivir, convalescent plasma and IV antibiotics. Altered mental status also felt to be secondary to hyperammonemia. He was felt to be deconditioned from baseline and was referred to . He was discharged from rehab approximately 8 days ago. He has been living with his sister and [id number]. He had previously been living with them prior to first admission secondary to needed home repairs; however typically at baseline he lives home alone and is independent of ADLs. When he returned home from [facility] he was at his baseline mentally but still weak and requiring ambulatory assist device. Approximately 3 days ago sister noted patient becoming more confused and weak. He was seen by PCP and urinalysis was ordered. He was started on oral Keflex. He has had 7 doses thus far. He was seen and evaluated in ED on 08/27 secondary to continued weakness and leg pain. Work-up was unrevealing and he was discharged home. Due to worsening symptoms he again presented to ED today. Most history obtained from sister as patient is unreliable. ROS unobtainable and unreliable. In ED he remained hemodynamically stable although mildly tachycardic. He did have mild leukocytosis and elevation of procalcitonin. He had mild hyperglycemia but otherwise lab work unremarkable including troponin, proBNP and ammonia. Urinalysis appears much improved as well. Blood cultures were obtained. Chest x-ray with reveals improvement with multifocal airspace opacities. Head CT without any acute abnormality. In ED he did receive 2 g IV Rocephin along with 500 IVF. Admission Exam Per Admitting Provider Constitutional: WD/WN, obese, male, vitals as above, NAD, sitting up in bed, weak and difficult with bed mobility Head: Normocephalic, Atraumatic Eyes: PERRL, conjunctivae normal, anicteric sclerae ENMT: external ear and nose normal, oropharynx normal Neck: trachea midline, no thyromegaly normal visual inspection Respiratory: normal respiratory effort, lungs clear to auscultation, no wheeze, rales, rhonchi. Normal insp/exp effort, no accessory muscle use Cardiovascular: RRR, no murmur, bilateral lower extremity +1 lymphedema with venous stasis Vessels: no JVD or carotid bruit Chest: normal inspection of chest Abdomen: Protuberant abdomen, normal bowel sounds, soft, nontender, no hepatosplenomegaly Musculoskeletal: no cyanosis or clubbing, extremities motor strength 5/5 Skin: no rashes, warm and dry normal turgor Neurologic: PERRL, EOMI, accommodation nl, no face palsy, no dysarthria CN's II-XI intact bilaterally and moves all extremities Psychiatric: A+Ox2 to self and place only, insistent that is 2021, euthymic affect : deferred Principal Diagnosis (1) Altered mental status: (2) Weakness: (3) UTI (urinary tract infection): Discharge Exam General: A&Ox3 HENT: NCAT, MMM, EOMI Eyes: PERRLA Neck: Supple, normal range of motion CVS: normal rate and rhythm Resp: b/l good breath sounds Abdomen: Soft, distended and nontender Extremities: No c/c/e Neuro: face symmetric Skin: warm and dry MSK: normal ROM, no joint swelling/erythema Discharge Data Allergies Allergy/AdvReac Type Severity Reaction Status Date / Time indomethacin AdvReac Severe SEIZURE Verified 08/29/20 09:15 Consultations 08/29/20 11:29 ED Decision to Admit Stat 08/29/20 14:22 Consult Case Management - Discharge Planning Routine Ordered Studies 08/29/20 09:01 CT head/brain wo con Stat 08/29/20 13:06 CT abd pelvis IV con only Stat 08/31/20 14:00 US venous doppler LE Routine Hospital Course (1) Altered mental status: (2) Weakness: (3) UTI (urinary tract infection): Patient is 59-year-old male with past medical history of diabetes mellitus type 2, generalized convulsive epilepsy, hypertension, hyperlipidemia, heart failure, venous insufficiency, lymphedema, history of DVT on Coumadin, hyperammonemia on lactulose secondary to chronic liver disease presented with altered mental status and generalized weakness. Generalized weak Sent for altered mental status Pyelonephritis His most recent cultures grew Klebsiella pneumonia. Patient was on Keflex as an outpatient. On admission patient was a started on ceftriaxone. Urine cultures were ruled out. Blood cultures were negative. Chest x-ray negative on admission. CT head without any concerns. Obtain CT abdomen pelvis IV contrast-during previous hospitalization diagnosed with pneumatosis intestinalis. Seen and evaluated by general surgery and treated conservatively. continue lactulose for hyperammonemia in setting of chronic liver disease - no evidence of hepatic encephalopathy CT abdomen/pelvis during this admission revealed Heterogeneous mildly decreased enhancement of the interpolar left kidney is noted in conjunction with perinephric stranding, urethral thickening and enhancement with mild hydroureteronephrosis. No obstructing ureteral calculus or lesion. Findings are suggestive of an ascending infection with pyelonephritis and Pneumatosis coli is again noted within the ascending colon which has decreased from the 07/23/2020 exam. The day of discharge patient was awake and alert. Hemodynamically he was doing fine. Patient was afebrile. White count was within normal limit. Status was not concerning. Physical therapy was consulted and they evaluated and recommended home. Sister wanted placement. Patient was discharged in stable condition. (4) T2DM (type 2 diabetes mellitus): Last A1c 04/07/2020 6.8, hemoglobin A1c of 7.8 on 08/30 Continue with Tradjenta and glipizide (5) Seizure disorder: Continue with the STORE PERSON Depakote, Dilantin and Topamax. (6) 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 (deep vein thrombosis): Continue with STORE PERSON warfarin. INR today at 2.8. With Coumadin 5 mg Saturday/Saturday/Saturday//Saturday/Saturday and 7.5 mg on Saturday (7) Lymphedema: hx of venous stasis, dvts, lymphedema and diastolic CHF Encourage SHAYAN stockings. Daily weights and strict I's and O's. Continue Lasix potassium supplement (8) History of 2019 novel coronavirus disease (COVID-19): hospitalized 07/23/20-08/09/20 sepsis 2/2 to covid - 19 PNA treated with IV remdesivir, convalescent plasma and decadron cxr shows improving airspace opacities (9) DVT prophylaxis: Total Time Total Time Spent Total Time Spent (In Minutes): 35 Discharge Plan Discharge Items Patient Disposition: Transfer Inpatient Rehab Fac Reason For Visit: AMBULATORY DYSFUNCTION UTI, POST COVID WEAKNESS Discharge Diagnosis: Altered mental status Activity: Resume your previous activity Non-emergency contact: Primary Care Provider Call non-emergency contact if: your symptoms worsen Follow-up/Referrals: Fab Arroyo MD [Primary Care Provider] - (Date & Time 09/07/2020 11:20 AMProvider Fab [facility], [facility] ) Diet: Carb Consistent or DM2 Addtl Attending Provider Instructions: Follow-up with your primary care physician within 1 week. An appointment has been requested. Continue your Coumadin as you were instructed prior to your hospitalization. Follow-up with INR. Pending Studies at Discharge: No Stand-Alone Forms: My [employer], Smoking Cessation Skilled Items Lines: None Urinary Catheter: No Medications and DC Order Prescriptions: Continued gabapentin 400 mg capsule 400 mg PO HS RF: 0 amlodipine 5 mg tablet 5 mg PO DAILY RF: 0 glipizide 5 mg tablet 5 mg PO DAILY RF: 0 furosemide 20 mg tablet 20 mg PO DAILY RF: 0 warfarin 5 mg Tablet 7.5 mg PO MO@1600 RF: 0 oxycodone 5 mg Tablet 5 mg PO Q4H PRN (Reason: Pain) RF: 0 lactulose [Constulose] 10 gram/15 mL Solution 30 g PO QID RF: 0 gabapentin 100 mg Capsule 100 mg PO BID RF: 0 Caltrate + D3 Plus Minerals 300 mg-800 unit -25 mg-0.5 mg Tablet 1 tab PO DAILY RF: 0 multivitamin [Tab-A-Rory] Tablet 1 tab PO DAILY RF: 0 atorvastatin 80 mg tablet 80 mg PO DAILY RF: 0 phenytoin sodium extended [Dilantin Extended] 100 mg capsule 400 mg PO BID RF: 0 divalproex 500 mg tablet,delayed release (DR/EC) 1,000 mg PO BID RF: 0 divalproex 500 mg tablet,delayed release (DR/EC) 500 mg PO DAILY@1500 RF: 0 allopurinol 300 mg tablet 450 mg PO DAILY RF: 0 topiramate 200 mg tablet 200 mg PO BID RF: 0 Tradjenta 5 mg tablet 5 mg PO DAILY RF: 0 tamsulosin 0.4 mg capsule 0.4 mg PO HS RF: 0 warfarin 5 mg Tablet 5 mg PO SUTUWETHFRSA@1600 RF: 0 cholecalciferol (vitamin D3) 25 mcg (1,000 unit) Tablet 1,000 unit PO DAILY RF: 0 potassium chloride 20 mEq tablet,ER particles/crystals 40 meq PO DAILY Qty: 0 RF: 0 Discontinued cephalexin 250 mg Capsule 250 mg PO TID RF: 0 Discharge Orders: Discharge Order (Routine); Ordered 09/01/20 Ordered By: Iliana Rajan/Other Patient Handouts: High Blood Sugar (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), Hypoglycemia (Low Blood Sugar), Managing Type 2 Diabetes, 5 Steps for Eating Healthier, Managing Diabetes: The A1C Test Admission Data Admit Date/Time: 08/30/20 12:44 Attending Provider: Iliana Carranza Admit Provider: Lelia Montano I. Primary Care Provider: Fab Arroyo Other Providers: Lisa Calderon ; Lelia Montano I. ; [facility] Other Interventions: Discharge Summary Assessment (RN) Last Done: 09/01/20 18:23
== END 2020-09-01 19:04 | DRG 690 ==
LOC: 2N 08:16 → ED 08:16 → SUATTDRO 12:09 → 2N 13:58 → SUATTDRO 08-30 12:44

== ENCOUNTER 2020-10-14 22:38 | Inpatient (IN) ==
[2020-10-14] MEDS ORDERED: ACETAMINOPHEN 500 MG TAB PO STA (22:57)
[2020-10-14] MEDS ORDERED: SODIUM CHLORIDE 0.9% 1000ML 500 ML IV ONE (22:57)
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
--- NOTE | 2020-10-14 23:32 | XRay Report ---
SINGLE VIEW CHEST CLINICAL HISTORY: Generalized weakness. FINDINGS: 2 AP, portable, supine chest radiographs are compared to study dated 08/29/2020. Correlation is made with chest CT dated 11/02/2013. The examination is degraded by portable technique and patient rotation. The patient's head obscures the apices. The heart is enlarged. The pulmonary vasculature i s noncongested. There is bibasilar scarring/atelectasis. No airspace consolidation or large pleural e ffusion is identified. No pneumothorax is seen. The skeletal structures are osteopenic. The bony thor ax is grossly intact. IMPRESSION: Cardiomegaly with no acute cardiopulmonary abnormality. ACT 112: Negative or not required by law. Electronically signed by: Alfredo Cade M.D. 10/14/2020 11:30 PM
[2020-10-14 23:43] LABS: Appearance Urine Clear (Clear); Bacteria Urine Automated 1+ (Negative); Bilirubin Urine Negative (Negative); Blood Urine 1+ (Negative); Color Urine Dark Yellow; Glucose Urine UA Negative (Negative); Ketones Urine Trace (Negative); Leukocyte Esterase Urine 2+ (Negative); Nitrite Urine Negative (Negative); Protein Urine 2+ (Negative); RBC Urine Automated 0-4 /hpf (0-4); Specific Gravity Urine 1.021 (1.000-1.030); Urobilinogen Urine Negative (Negative); WBC Urine Automated >30 /hpf (0-5)
[2020-10-15 00:06] LABS: Basophils # (auto) 0.02 K/uL (0-0.2); Basophils % (auto) 0.2 %; Eosinophils # (auto) 0.04 K/uL (0-0.5); Eosinophils % (auto) 0.4 %; Hematocrit (blood only) 41.2 % (42-52); Hemoglobin 14.4 g/dL (14.0-18.0); Immature Granulocytes # (auto) 0.03 K/uL (0.00-0.02); Immature Granulocytes % (auto) 0.3 %; Lymphocytes % (auto) 19.6 %; Mean Corpuscular Hemoglobin 34.5 pg (25-34); Mean Corpuscular Volume 98.8 fL (80-100); Mean Platelet Volume 9.7 fL (7.4-10.4); Monocytes # (auto) 0.95 K/uL (0.11-0.59); Monocytes % (auto) 8.5 %; Platelet Count 143 K/uL (130-400); RDW Coefficient of Variation 15.3 % (11.5-14.5); RDW Standard Deviation 55.1 fL (36.4-46.3); Red Blood Count 4.17 M/uL (4.7-6.1); White Blood Count 11.24 K/uL (4.8-10.8)
[2020-10-15 00:26] LABS: INR 1.6 (0.9-1.1); Partial Thromboplastin Ratio 1.2; Partial Thromboplastin Time 31.1 Seconds (21.0-31.0); Prothrombin Time 15.5 Seconds (9.0-12.0)
[2020-10-15 00:32] LABS: Alanine Aminotransferase 35 U/L (12-78); Albumin Level 3.2 gm/dl (3.4-5.0); Aspartate Aminotransferase 19 U/L (15-37); BUN Creatinine Ratio 12.8 (10-20); Bilirubin Direct 0.1 mg/dl (0-0.2); Blood Urea Nitrogen 15 mg/dl (7-18); Calcium 8.5 mg/dl (8.5-10.1); Carbon Dioxide 20 mmol/L (21-32); Chloride 114 mmol/L (98-107); Est GFR (African American) 80.9; Est GFR (Non-African American) 69.8; Glucose 215 mg/dl (70-99); Lipase 152 U/L (73-393); Magnesium 1.7 mg/dl (1.8-2.4); Potassium 3.6 mmol/L (3.5-5.1); Sodium 142 mmol/L (136-145)
[2020-10-15 00:38] LABS: Alkaline Phosphatase 108 U/L (45-117); Bilirubin,Total 0.3 mg/dl (0.2-1); Troponin I < 0.015 ng/ml (0-0.045)
[2020-10-15] MEDS ORDERED: SODIUM CHLORIDE 0.9% 1000ML 1,000 ML IV ONE (00:47)
[2020-10-15] MEDS ORDERED: PIPERACILLIN/TAZOBACTAM 4.5 GM/120 ML BAG IV ONE (00:47)
[2020-10-15] MEDS ORDERED: VANCOMYCIN HCL 2,000 MG in SODIUM CHLORIDE 0.9% 500 ML IV ONE (00:47)
[2020-10-15] MEDS ORDERED: VANCOMYCIN CONSULT ACTIVE PRN (00:47)
[2020-10-15] MEDS ORDERED: PIPERACILL/TAZOBAC CONSULT ACTIVE PRN (00:47)
[2020-10-15] MEDS ORDERED: SODIUM CHLORIDE 0.9% 1000ML 500 ML IV ONE (00:48)
[2020-10-15] MEDS ORDERED: POTASSIUM CHLORIDE CRTAB 20 MEQ TABCR PO STA (00:57)
[2020-10-15] MEDS ORDERED: MAGNESIUM SULFATE / D5W 1 GM/100 ML BAG IV STA (01:05)
[2020-10-15] MEDS ORDERED: POTASSIUM CHLORIDE 40 MEQ in SODIUM CHLORIDE 0.9% 1000ML 1,000 ML IV ONE (01:40)
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
[2020-10-15] MEDS ORDERED: LEVALBUTEROL 1.25MG/0.5ML NEB INH SCH (01:45)
[2020-10-15] MEDS ORDERED: IPRATROPIUM BROMIDE NEB SOLN 0.02% 2.5 ML VIAL INH SCH (01:45)
[2020-10-15] MEDS ORDERED: cloNIDine HCL 0.1 MG TAB PO STA (02:22)
[2020-10-15] MEDS ORDERED: OPTIRAY 320 125ml IV ONE (02:59)
[2020-10-15] MEDS ORDERED: GLUCOSE 10 TABS/TUBE PO PRN (03:40)
[2020-10-15] MEDS ORDERED: DEXTROSE 50% 50 ML SYRINGE IV PRN (03:40)
[2020-10-15] MEDS ORDERED: INSULIN GLARGINE SOLOSTAR 100 UNITS/ML 3 ML PEN SC STA (03:40)
[2020-10-15] MEDS ORDERED: XOPENEX/ATROVENT 1.25mg/0.5MG NEB COMBO NEB STA (03:40)
[2020-10-15] MEDS ORDERED: GLUCAGON FOR INJ 1 MG VIAL SQ PRN (03:40)
[2020-10-15] MEDS ORDERED: PROMETHAZINE HCL 12.5 MG in SODIUM CHLORIDE 0.9% 50 ML IV PRN (03:40)
[2020-10-15] MEDS ORDERED: CARBOHYDRATES FOR HYPOGLYCEMIA PO PRN (03:40)
[2020-10-15] MEDS ORDERED: GLUCOSE 40% GEL 15 GM TUBE PO PRN (03:40)
[2020-10-15] MEDS ORDERED: oxyCODONE HCL IR 5 MG TAB (IMMEDIATE RELEASE) PO PRN (03:40)
[2020-10-15] MEDS ORDERED: ACETAMINOPHEN 325 MG TAB PO PRN (03:40)
[2020-10-15] MEDS ORDERED: ACETAMINOPHEN 325 MG TAB PO STA (03:46)
[2020-10-15] MEDS ORDERED: LEVALBUTEROL 1.25MG/0.5ML NEB INH STA (03:52)
[2020-10-15] MEDS ORDERED: IPRATROPIUM BROMIDE NEB SOLN 0.02% 2.5 ML VIAL INH STA (03:52)
[2020-10-15] MEDS ORDERED: DOXYCYCLINE HYCLATE 100 MG in DEXTROSE 5% 100 ML IV STA (04:11)
[2020-10-15] MEDS ORDERED: CEFEPIME CONSULT ACTIVE PRN (04:11)
[2020-10-15] MEDS: INSULIN ASPART 100 UNITS/ML 3 ML PEN SC SCH ×5 (04:26→19:05)
[2020-10-15 05:41] LABS: Basophils # (auto) 0.01 K/uL (0-0.2); Basophils % (auto) 0.1 %; Eosinophils # (auto) 0.02 K/uL (0-0.5); Eosinophils % (auto) 0.2 %; Hematocrit (blood only) 37.5 % (42-52); Hemoglobin 13.6 g/dL (14.0-18.0); Immature Granulocytes # (auto) 0.03 K/uL (0.00-0.02); Immature Granulocytes % (auto) 0.3 %; Lymphocytes # (auto) 1.87 K/uL (1.2-3.4); Lymphocytes % (auto) 16.8 %; Mean Corpuscular Hemoglobin 34.9 pg (25-34); Mean Corpuscular Volume 96.2 fL (80-100); Mean Platelet Volume 10.1 fL (7.4-10.4); Monocytes # (auto) 0.91 K/uL (0.11-0.59); Monocytes % (auto) 8.2 %; Neutrophils # (auto) 8.26 K/uL (1.4-6.5); Neutrophils % (auto) 74.4 %; Platelet Count 128 K/uL (130-400); RDW Coefficient of Variation 15.2 % (11.5-14.5); RDW Standard Deviation 53.1 fL (36.4-46.3)
[2020-10-15 05:47] LABS: Mean Corpuscular Hgb Conc 36.3 g/dL (32-36)
[2020-10-15 05:56] LABS: INR 1.5 (0.9-1.1); Partial Thromboplastin Ratio 1.3; Partial Thromboplastin Time 33.9 Seconds (21.0-31.0); Prothrombin Time 15.1 Seconds (9.0-12.0)
[2020-10-15 05:58] LABS: Albumin Level 2.8 gm/dl (3.4-5.0); BUN Creatinine Ratio 12.1 (10-20); Creatinine Clr Calc Pharmacy 110.6 ml/min; Est GFR (African American) 99.7; Est GFR (Non-African American) 86.1; Magnesium 1.8 mg/dl (1.8-2.4); Potassium 4.1 mmol/L (3.5-5.1)
[2020-10-15 06:01] LABS: Albumin Globulin Ratio 0.8 (0.9-2); Bilirubin,Total 0.4 mg/dl (0.2-1); Globulin 3.4 gm/dl (2.5-4.0); Total Protein 6.2 gm/dl (6.4-8.2)
[2020-10-15] MEDS ORDERED: WARFARIN SOD 5 MG TAB PO ONE (06:14)
[2020-10-15] MEDS ORDERED: Heparin IV Adult Wt-Based Low-Dose *NO* Bolus Protocol IV STA (06:14)
[2020-10-15] MEDS: HEPARIN SODIUM/DEXTROSE 25,000 UNITS/500 ML BAG IV SCH (07:24)
[2020-10-15] MEDS: PHENYTOIN SODIUM ER 100 MG CAP PO SCH (08:39)
[2020-10-15] MEDS: DIVALPROEX DELAY RELEASE 500 MG TAB PO SCH (08:40)
[2020-10-15] MEDS: TOPIRAMATE 100 MG TAB PO SCH (08:40)
[2020-10-15] MEDS: GABAPENTIN 100 MG CAP PO SCH (08:41)
[2020-10-15] MEDS: LACTULOSE SYRUP 30 GM/45 ML UDP PO SCH ×3 (08:42→14:37)
--- NOTE | 2020-10-15 08:42 | CT Scan Report ---
CT angio chest PE protocol HISTORY: 59 years-old Male with PE. Acute shortness of breath TECHNIQUE: Multiple CTA images of the chest were obtained after the intravenous administration of 115 ml Optiray 320. Coronal and sagittal MIPS were obtained from the axial data set and were submitted for review. All measurements were obtained according to NASCET criteria. A dose lowering technique w as utilized adhering to the principles of ALARA. COMPARISON: Chest radiograph 10/14/2020, chest CT 11/02/2013 FINDINGS: CTA: The heart is upper limits of normal in size. Extensive coronary artery calcifications. No thoracic ao rtic aneurysm. Patency of the imaged great vessels. Limited evaluation of the pulmonary arterial tree secondary to respiratory motion and contrast bolus timing. No central pulmonary emboli identified. T he study is also limited secondary to upper extremity positioning. There are questionable linear nono cclusive filling defects with and segmental branches of the left lower lobe on image 93. CT CHEST: Unremarkable thyroid. There are a few prominent nonenlarged paratracheal lymph nodes which are likely physiologic. No pathologic adenopathy identified. Inferior lung bases are not imaged. There is no pn eumothorax or pleural effusion. Bilateral groundglass opacities with mild linear dependent bibasilar consolidative opacities. Subpleural partially calcified 2.5 cm opacity of the basal right lower lobe on image 60 is unchanged from the 2014 study compatible with benign scarring/atelectasis. No pneumoperitoneum. No acute process of the imaged upper abdomen. Unremarkable soft tissues. Chronic healed right-sided rib fractures. Degenerative changes of the shoulders and spine. IMPRESSION: 1. Limited exam as above. No central pulmonary emboli are identified. There are questionable linear n onocclusive filling defects within segmental branches of the left lower lobe, possibly reflective of chronic emboli versus artifact. Correlation can be made with lower extremity Doppler. This finding wa s called/faxed to the emergency department at time of dictation. 2. Bilateral pulmonary opacities suggestive of atelectasis. 3. Chronic subpleural 2.5 cm opacity of the basal right lower lobe suggestive of benign scarring/atel ectasis, stable dating back to at least 2013. 4. Extensive coronary artery calcifications. ACT 112: Negative or not required by law. The above report was generated using voice recognition software. It may contain grammatical, syntax o r spelling errors. Electronically signed by: Mariano Chapman M.D. 10/15/2020 8:41 AM
[2020-10-15] MEDS ORDERED: DOCUSATE SODIUM 100 MG CAP PO SCH (09:00)
[2020-10-15] MEDS ORDERED: MULTIVITAMIN TAB PO SCH (09:00)
[2020-10-15] MEDS ORDERED: ATORVASTATIN 40 MG TAB PO SCH (09:00)
[2020-10-15] MEDS ORDERED: amLODIPine BESYLATE 5 MG TAB PO SCH (09:00)
[2020-10-15] MEDS ORDERED: allopurinoL 300 MG TAB PO SCH (09:00)
[2020-10-15] MEDS ORDERED: CEFEPIME 2,000 MG in SYRINGE 0 ML IV STA (09:14)
--- NOTE | 2020-10-15 09:52 | CT Scan Report ---
ABDOMEN AND PELVIS CT WITH IV CONTRAST CT DOSE: 2423.44 mGy.cm HISTORY: Acute generalized abdominal and back pain abd/back pain TECHNIQUE: Multiaxial CT images of the abdomen and pelvis were performed following the IV administrat ion of 115 cc of Optiray 320, A dose lowering technique was utilized adhering to the principles of A DELILAH. COMPARISON STUDY: CTA chest of same day, CT abdomen pelvis 08/29/2020, chest CT 11/02/2013. FINDINGS: 2.5 cm linear partially calcified subpleural consolidative opacity of the basal right lower lobe is unchanged from 2014 suggestive of scarring/atelectasis. Respiratory motion artifact and uppe r cavity positioning limits the study. Bibasilar atelectasis. No pneumatosis or pneumoperitoneum. The spleen is enlarged measuring up to 16.6 cm in length. Unremarkable pancreas and adrenal glands. T he gallbladder, and liver are unremarkable. Absent right kidney. Unchanged left perinephric stranding with suggestion of mild urothelial thickening. Exophytic 12 mm probable cyst of the inferior pole le ft kidney redemonstrated. No ureteral calculi or obstructive uropathy. Stranding is also noted surrou nding the left ureter. Mild urinary bladder wall thickening with partial distention. Unremarkable pro state. No aortic aneurysm or adenopathy. There is no bowel obstruction or bowel wall thickening. Trace free fluid within the dependent pelvis. Scattered colonic air-fluid levels. Pneumatosis coli within the ascending colon is generally unchang ed. Noninflamed appendix. Heterogeneous bone marrow Degenerative changes of the spine, pelvis and hip s. IMPRESSION: 1. Motion degraded exam. 2. No bowel obstruction or bowel wall thickening. 3. Pneumatosis coli of the ascending colon is unchanged and likely of benign etiology. 4. Persistent left-sided perinephric stranding with suggestion of urothelial thickening of the left r enal collecting system and ureter. This finding in conjunction with urinary bladder wall thickening s hould be correlated with urinalysis to exclude infection. 5. Right nephrectomy. 6. Splenomegaly. 7. Additional findings as above. ACT 112: Negative or not required by law. The above report was generated using voice recognition software. It may contain grammatical, syntax o r spelling errors. Electronically signed by: Mariano Chapman M.D. 10/15/2020 9:51 AM
--- NOTE | 2020-10-15 12:10 | Electrocardiogram Report ---
Test Reason : Blood Pressure : / mmHG Vent. Rate : 104 BPM Atrial Rate : 104 BPM P-R Int : 150 ms QRS Dur : 082 ms QT Int : 334 ms P-R-T Axes : 040 056 063 degrees QTc Int : 439 ms Poor data quality, interpretation may be adversely affected Sinus tachycardia Otherwise normal ECG When compared with ECG of 29-AUG-2020 09:22, No significant change was found Confirmed by Jimmy Bradshaw ([id number]) on 10/15/2020 12:09:52 PM Referred By: REFERRED SELF Confirmed By:Jimmy Bradshaw
[2020-10-15 15:02] LABS: Partial Thromboplastin Ratio 1.5; Partial Thromboplastin Time 40.5 Seconds (21.0-31.0)
--- NOTE | 2020-10-15 15:20 | Hospitalist Progress Note ---
Date of Service October 15, 2020 Assessment & Plan (1) Sepsis: Sepsis likely secondary to urinary source, likely pyelonephritis from current clinical picture. He did receive vancomycin and Zosyn empirically last night in the ER and subsequently received cefepime this morning. He became further confused and is currently now unresponsive and unable to take pills or follow instructions. Some of this confusion is likely influenced from hepatic encephalopathy as evidenced from a an ammonia level above 200. Continue plan per below. (2) Acute pyelonephritis: Continue cefepime pending urine and blood cultures and clinical improvement. Will consider urologic evaluation if no improvement or continued worsening of clinical status. (3) Acute metabolic encephalopathy: Confusion secondary to combination of acute metabolic encephalopathy with underlying sepsis secondary to infection and underlying hepatic encephalopathy with hyperammonemia. There is also concern with progressive confusion after heparin drip has been started intracranial bleed needs to be ruled out; other intracranial event is a possibility, therefore, CT head has been ordered and is pending. Hold all p.o. medications and nothing by mouth for now. Lactulose enemas ordered to help reduce ammonia level. Convert seizure medications to intravenous formulations. Continue to correct any electrolyte abnormalities as needed. Close monitoring with upgraded to PCU status at this time. (4) Seizure disorder: Patient is on divalproex delayed release 1000 p.o. twice daily with a 500 mg dose at 1500 daily, phenytoin ER 400 mg p.o. twice daily, topiramate 200 mg p.o. twice daily, gabapentin 100 mg p.o. twice daily with a 400 mg nightly dose. We will convert oral medication to intravenous including Depacon 1000mg IV twice daily, 500mg IV at 1500 daily. Fosphenytoin 400 PE IV twice daily. And will add Keppra 500 mg IV every 12 for now with consideration that Keppra may cause additional drowsiness that may contribute to clinical picture, and third AED may not be necessary. Hopeful that patient will have a resolution of confusion within the next 24 to 48 hours. (5) 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 (deep vein thrombosis): Subtherapeutic INR on warfarin at home. Placed on heparin therapy. Notably CT PE of chest reveals questionable linear nonocclusive filling defects within segmental branches of the left lower lobe possibly reflective of chronic emboli versus artifact. Will obtain lower extremity Dopplers when patient is clinically more stable. Continue heparin drip at this time. Warfarin is currently on hold as patient cannot tolerate p.o. (6) History of 2019 novel coronavirus disease (COVID-19): (7) Gout: Allopurinol per home regimen is on hold. (8) local [employer] current use of 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 therapy: Plan as above. (9) T2DM (type 2 diabetes mellitus): Continue basal bolus insulin to achieve euglycemia, glargine will be held as patient is currently n.p.o. (10) Chronic liver disease: Per prior hospital records, outpatient records unavailable. Ammonia level elevated. Patient reportedly compliant with lactulose as outpatient per sister with whom he lives. Ammonia level >200. He will now be starting lactulose enemas while NPO. (11) DVT prophylaxis: Heparin drip, caution in setting of thrombocytopenia likely as a result of developing sepsis and notable chronic liver disease Full code Disposition-advance patient to PCU status, updated patient's sister by phone. Lashae Castellon DO [facility]ist Admission and Anticipated Discharge Date Admission Date: October 15, 2020 Subjective 59-year-old man presents with sepsis likely secondary to right pyelonephritis. He was notably recently admitted for pyelonephritis in late August and 1 month prior to that was admitted for sepsis secondary to Covid. At baseline he is able to ambulate independently and mentate's clearly. This history is per his sister who states his symptoms came on approximately 12 to 24 hours prior to arrival at the ER and included weakness and shakiness in his legs with subsequent increased confusion throughout the night last night. He is confused at this point and is currently unable to safely swallow. He cannot cooperate with an exam or follow instructions. He is tachypneic with fever having subsided approximately 1 hour ago with antipyretic therapy. He continues on broad-spectrum antibiotics started just hours ago. Per his sister he has been compliant with lactulose therapy and having bowel movements at home despite ammonia level of over 200 this morning. Review of Systems Review of Systems: Unobtainable due to cognitive status Physical Exam Physical Exam: CONSTITUTIONAL: WNWD, vitals as above, generally ill-appearing and confused. Appears to be in mild distress EYES: pupils are round and equal bilaterally, normal conjunctivae, no scleral icterus ENT: external ear and nose normal, MMM RESPIRATORY: clear to auscultation bilaterally, no crackles, rales or wheezes, mild tachypnea with no increased respiratory effort. CARDIOVASCULAR: tachy rate and rhythm, S1 and 2 heard without murmurs, gallops or rubs, no JVD, no peripheral edema GASTROINTESTINAL: soft, no guarding, difficult to examine as patient is lifting his head up and flexing his abdominal muscles. Unable to follow instructions. MUSCULOSKELETAL: generalized weakness SKIN: warm and dry NEUROLOGIC: confused Results & Data Results & Data ([facility]) Vital Signs (Past 12 Hours) Vital Signs Temp Pulse Pulse Resp BP BP Pulse Ox 10/15/20 11:13 37.5 C 90 20 153/80 H 97 10/15/20 07:50 115 H 10/15/20 07:34 39.4 C H 105 H 20 155/76 H 97 10/15/20 05:04 115 H 20 97 10/15/20 04:36 111 H 10/15/20 03:30 38.8 C H 112 H 24 156/72 H 97 Laboratory Results Short CBC 10/14/20 10/15/20 Range/Units 23:58 05:33 WBC 11.24 H 11.10 H (4.8-10.8) K/uL Hgb 14.4 13.6 L (14.0-18.0) g/dL Hct 41.2 L 37.5 L (42-52) % Plt Count 143 128 L (130-400) K/uL BMP 10/14/20 10/15/20 23:58 05:33 Sodium 142 142 Potassium 3.6 4.1 Chloride 114 H 118 H Carbon Dioxide 20 L 15 L BUN 15 11 Creatinine 1.13 0.95 Glucose 215 H 217 H Calcium 8.5 8.0 L Cardiac Enzymes 10/14/20 Range/Units 23:58 Troponin I < 0.015 (0-0.045) ng/ml Liver Function 10/14/20 10/15/20 Range/Units 23:58 05:33 Total Bilirubin 0.3 0.4 (0.2-1) mg/dl Direct Bilirubin 0.1 (0-0.2) mg/dl AST 19 30 (15-37) U/L ALT 35 36 (12-78) U/L Alkaline Phosphatase 108 97 (45-117) U/L Albumin 3.2 L 2.8 L (3.4-5.0) gm/dl Urine 10/14/20 Range/Units 23:34 Urine Color Dark Yellow Urine Appearance Clear (Clear) Urine pH 6.0 (4.5-7.5) Ur Specific [place] 1.021 (1.000-1.030) Urine Protein 2+ H (Negative) Urine Glucose (UA) Negative (Negative) Medications Administered Current Inpatient Medications Allopurinol (Allopurinol 300 Mg Tab) 450 mg PO DAILY [facility] Stop: 11/14/20 08:59 Last Admin: 10/15/20 08:41 Dose: 450 mg Documented by: Amlodipine Besylate (Amlodipine Besylate 5 Mg Tab) 5 mg PO DAILY [facility] Stop: 11/14/20 08:59 Last Admin: 10/15/20 08:41 Dose: 5 mg Documented by: Atorvastatin Calcium (Atorvastatin 40 Mg Tab) 80 mg PO DAILY [facility] Stop: 11/14/20 08:59 Last Admin: 10/15/20 08:42 Dose: 80 mg Documented by: Dextrose (Dextrose 50% 50 Ml Syringe) 25 - 50 ml IV UD PRN; Protocol PRN Reason: Hypoglycemia Protocol Stop: 11/14/20 03:39 Divalproex Sodium (Divalproex Delay Release 500 Mg Tab) 1,000 mg PO BID [facility] Stop: 11/14/20 08:59 Last Admin: 10/15/20 08:40 Dose: 1,000 mg Documented by: Divalproex Sodium (Divalproex Delay Release 500 Mg Tab) 500 mg PO DAILY@1500 [facility] Stop: 11/14/20 14:59 Gabapentin (Gabapentin 100 Mg Cap) 100 mg PO BID@0900,1500 [facility] Stop: 11/14/20 08:59 Last Admin: 10/15/20 08:41 Dose: 100 mg Documented by: Gabapentin (Gabapentin 400 Mg Cap) 400 mg PO HS [facility] Stop: 11/14/20 20:59 Glucagon (Glucagon For Inj 1 Mg Vial) 1 mg SQ UD PRN; Protocol PRN Reason: Hypoglycemia Protocol Stop: 11/14/20 03:39 Glucose (Glucose 10 Tabs/Tube) 4 - 8 tabs PO UD PRN; Protocol PRN Reason: Hypoglycemia Protocol Stop: 11/14/20 03:39 Glucose (Glucose 40% Gel 15 Gm Tube) 15 - 30 gm PO UD PRN; Protocol PRN Reason: Hypoglycemia Protocol Stop: 11/14/20 03:39 Heparin Sodium/Dextrose (Heparin Sodium/Dextrose) 25,000 units in 500 mls @ 20 mls/hr IV .Q24H [facility]; Protocol Stop: 11/14/20 06:14 Last Titration: 10/15/20 14:51 Dose: 1,000 units/hr, 20 mls/hr Documented by: Cefepime HCl 2,000 mg/ Syringe 20 mls @ 5 mls/min IV Q12H [facility] Stop: 10/25/20 20:59 Fosphenytoin Sodium 400 mgpe/ (Sodium Chloride) 33 mls @ 116 mls/hr IV BID [facility] Stop: 11/14/20 20:59 Valproic Acid 500 mg/ Dextrose 55 mls @ 55 mls/hr IV DAILY@1500 [facility] Stop: 11/14/20 15:59 Valproic Acid 1,000 mg/ (Dextrose) 110 mls @ 110 mls/hr IV BID [facility] Stop: 11/14/20 20:59 Levetiracetam 500 mg/ Sodium (Chloride) 105 mls @ 420 mls/hr IV Q12H [facility] Stop: 11/14/20 18:59 Insulin Aspart (Insulin Aspart 100 Units/Ml 3 Ml Pen) 0 units SC ACHS [facility] Stop: 11/14/20 03:39 Last Admin: 10/15/20 12:58 Dose: 3 units Documented by: Insulin Glargine (Insulin Glargine Solostar 100 Units/Ml 3 Ml Pen) [address] [facility] Stop: 11/14/20 20:59 Lactulose (Lactulose Syrup 30 Gm/45 Ml Udp) 30 gm PO QID [facility] Stop: 11/14/20 08:59 Last Admin: 10/15/20 14:37 Dose: Not Given Documented by: Miscellaneous (Carbohydrates For Hypoglycemia ) 15 - 30 gm PO UD PRN PRN Reason: Hypoglycemia Protocol Stop: 11/14/20 03:39 Miscellaneous Information (Cefepime Consult Active) 1 ea N/A UD PRN PRN Reason: Consult Stop: 11/14/20 04:10 Phenytoin Sodium (Phenytoin Sodium Er 100 Mg Cap) 400 mg PO BID [facility] Stop: 11/14/20 08:59 Last Admin: 10/15/20 08:39 Dose: 400 mg Documented by: Tamsulosin HCl (Tamsulosin Hcl 0.4 Mg Cap) 0.[address] [facility] Stop: 11/14/20 20:59 Topiramate (Topiramate 100 Mg Tab) 200 mg PO BID [facility] Stop: 11/14/20 08:59 Last Admin: 10/15/20 08:40 Dose: 200 mg Documented by: Warfarin Sodium (Warfarin Sod 5 Mg Tab) 5 mg PO DAILY@1600 [facility] Stop: 11/15/20 15:59
[2020-10-15 15:56] LABS: Basophils # (auto) 0.01 K/uL (0-0.2); Basophils % (auto) 0.1 %; Hemoglobin 13.7 g/dL (14.0-18.0); Immature Granulocytes # (auto) 0.02 K/uL (0.00-0.02); Immature Granulocytes % (auto) 0.2 %; Lymphocytes # (auto) 1.64 K/uL (1.2-3.4); Lymphocytes % (auto) 16.6 %; Mean Corpuscular Hemoglobin 34.9 pg (25-34); Mean Corpuscular Volume 96.9 fL (80-100); Mean Platelet Volume 9.3 fL (7.4-10.4); Monocytes # (auto) 0.67 K/uL (0.11-0.59); Monocytes % (auto) 6.8 %; Neutrophils # (auto) 7.53 K/uL (1.4-6.5); Neutrophils % (auto) 76.3 %; Platelet Count 121 K/uL (130-400); RDW Coefficient of Variation 15.2 % (11.5-14.5); RDW Standard Deviation 53.9 fL (36.4-46.3); Red Blood Count 3.92 M/uL (4.7-6.1); White Blood Count 9.87 K/uL (4.8-10.8)
[2020-10-15 16:00] LABS: INR 1.7 (0.9-1.1); Prothrombin Time 16.8 Seconds (9.0-12.0)
[2020-10-15] MEDS ORDERED: ACETAMINOPHEN 1000 MG/100 ML IV IV ONE (16:00)
[2020-10-15 16:11] LABS: Albumin Level 2.7 gm/dl (3.4-5.0); BUN Creatinine Ratio 12.5 (10-20); Calcium 7.9 mg/dl (8.5-10.1); Creatinine Clr Calc Pharmacy 107.7 ml/min; Est GFR (African American) 102.3; Est GFR (Non-African American) 88.3; Potassium 3.7 mmol/L (3.5-5.1)
[2020-10-15 16:26] LABS: Mean Corpuscular Hgb Conc 36.1 g/dL (32-36)
--- NOTE | 2020-10-15 16:34 | CT Scan Report ---
CT head/brain wo con CLINICAL HISTORY: 59 years-old Male with confusion. Acutely altered mental status TECHNIQUE: Multiple axial CT images of the head were obtained without contrast. A dose lowering tech nique was utilized adhering to the principles of ALARA. CT DOSE: 3266.52 mGy.cm COMPARISON: Head CT 08/29/2020. FINDINGS: Motion degraded exam. The study was then repeated which was also motion degraded and mostly nondiagno stic. No acute intracranial hemorrhage, midline shift, intracranial mass, hydrocephalus, territorial ischemia or abnormal extra-axial collection. The calvarium is intact. The paranasal sinuses, mastoid air cells, and middle ear cavities are clear . IMPRESSION: Markedly motion degraded exam renders the study nearly nondiagnostic. No acute intracran ial abnormality identified. ACT 112: Negative or not required by law. The above report was generated using voice recognition software. It may contain grammatical, syntax o r spelling errors. Electronically signed by: Mariano Chapman M.D. 10/15/2020 4:32 PM
[2020-10-15 17:06] LABS: Base Excess ABG -6.1 mEq/L (-9-1.8); HCO3 ABG 15 mmol/L (19-24); Oxygen Saturation ABG 97.5 % (90-95); PCO2 ABG 20 mmHg (35-46); PO2 ABG 87 mmHg (80-95); pH ABG 7.48 (7.35-7.45)
[2020-10-15 17:07] LABS: Allen Test POS (Pos)
[2020-10-15] MEDS: VALPROATE SOD 500 MG in DEXTROSE 5% 50 ML IV SCH (17:30)
[2020-10-15] MEDS: LACTULOSE 200 GM, WATER, STERILE IRRIG 700 ML, BARCODE IDENTIFIER 1 EA PR SCH (17:31)
[2020-10-15] MEDS: CEFEPIME 2,000 MG in SYRINGE 0 ML IV SCH (19:45)
[2020-10-15] MEDS ORDERED: MAGNESIUM SULFATE / D5W 1 GM/100 ML BAG IV ONE (20:00)
[2020-10-15 20:17] LABS: Magnesium 1.7 mg/dl (1.8-2.4)
[2020-10-15] MEDS: SODIUM CHLORIDE IV SCH (20:22)
[2020-10-15] MEDS: FOSPHENYTOIN IV SCH (20:22)
[2020-10-15] MEDS: levETIRAcetam 500 MG in 0.9 % SODIUM CHLORIDE 100 ML IV SCH (20:25)
[2020-10-15] MEDS: POTASSIUM CHLORIDE 20 MEQ in LACTATED RINGER'S 1,000 ML IV SCH (20:25)
[2020-10-15] MEDS: VALPROATE SOD 1,000 MG in DEXTROSE 5% 100 ML IV SCH (20:25)
[2020-10-15] MEDS ORDERED: DOXYCYCLINE HYCLATE 100 MG CAP PO SCH (21:00)
[2020-10-15] MEDS ORDERED: CEFEPIME 2,000 MG in SYRINGE 0 ML IV SCH (21:00)
[2020-10-15] MEDS: DAPTOMYCIN IV SCH (21:16)
[2020-10-15] MEDS: ACETAMINOPHEN 1,000 MG/100 ML VIAL IV PRN (21:17)
[2020-10-15] MEDS: INSULIN GLARGINE SOLOSTAR 100 UNITS/ML 3 ML PEN SC SCH (21:22)
[2020-10-15] MEDS ORDERED: ACETAMINOPHEN 1000 MG/100 ML IV IV PRN (23:00)
[2020-10-16 00:05] LABS: Partial Thromboplastin Ratio 2.5
[2020-10-16 00:07] LABS: Partial Thromboplastin Time 65.4 Seconds (21.0-31.0)
[2020-10-16] MEDS: INSULIN ASPART 100 UNITS/ML 3 ML PEN SC SCH ×4 (00:12→18:03)
[2020-10-16] MEDS: CEFEPIME 2,000 MG in SYRINGE 0 ML IV SCH ×3 (04:36→19:59)
[2020-10-16] MEDS: LACTULOSE 200 GM, WATER, STERILE IRRIG 700 ML, BARCODE IDENTIFIER 1 EA PR SCH (04:36)
[2020-10-16] MEDS: HEPARIN SODIUM/DEXTROSE 25,000 UNITS/500 ML BAG IV SCH (06:18)
[2020-10-16] MEDS: levETIRAcetam 500 MG in 0.9 % SODIUM CHLORIDE 100 ML IV SCH ×2 (07:41→19:47)
[2020-10-16 08:16] LABS: Partial Thromboplastin Ratio 2.4
[2020-10-16 08:25] LABS: Hematocrit (blood only) 37.5 % (42-52); Mean Corpuscular Hemoglobin 34.2 pg (25-34); Mean Corpuscular Hgb Conc 34.7 g/dL (32-36); Mean Corpuscular Volume 98.7 fL (80-100); Mean Platelet Volume 10.1 fL (7.4-10.4); Platelet Count 109 K/uL (130-400); RDW Coefficient of Variation 15.2 % (11.5-14.5); RDW Standard Deviation 54.9 fL (36.4-46.3); White Blood Count 11.87 K/uL (4.8-10.8)
[2020-10-16 08:26] LABS: Partial Thromboplastin Time 62.2 Seconds (21.0-31.0)
[2020-10-16 08:36] LABS: BUN Creatinine Ratio 13.5 (10-20); Calcium 8.2 mg/dl (8.5-10.1); Creatinine Clr Calc Pharmacy 87.9 ml/min; Potassium 3.3 mmol/L (3.5-5.1)
[2020-10-16] MEDS: POTASSIUM CHLORIDE 20 MEQ in LACTATED RINGER'S 1,000 ML IV SCH ×2 (08:48→20:04)
[2020-10-16] MEDS: FOSPHENYTOIN IV SCH ×2 (08:48→20:08)
[2020-10-16] MEDS: SODIUM CHLORIDE IV SCH ×2 (08:48→20:08)
[2020-10-16] MEDS: VALPROATE SOD 1,000 MG in DEXTROSE 5% 100 ML IV SCH ×2 (08:54→19:55)
[2020-10-16] MEDS: ACETAMINOPHEN 1,000 MG/100 ML VIAL IV PRN (11:43)
[2020-10-16] MEDS ORDERED: ACYCLOVIR CONSULT ACTIVE PRN (13:51)
[2020-10-16] MEDS ORDERED: MoRPHine SULFATE 4 MG/ML 1 ML CARP\\VIAL IV STA (13:58)
[2020-10-16] MEDS: metroNIDAZOLE 500 MG/100 ML BAG IV SCH ×2 (14:12→21:35)
[2020-10-16] MEDS ORDERED: HYDROmorphone INJ 1 MG/ML SYRINGE IV STA (14:52)
[2020-10-16] MEDS: ACYCLOVIR SOD 800 MG in DEXTROSE 5% 250 ML IV SCH ×2 (14:56→21:35)
--- NOTE | 2020-10-16 14:57 | Hospitalist Progress Note ---
Date of Service October 16, 2020 Assessment & Plan (1) Sepsis: Sepsis thought secondary to pyelonephritis with gram-negative bacteremia. It would be expected that this point the patient would have improved and be fully resuscitated. However, he remains significantly febrile and persistently tachycardic, partially related to uncontrolled pain presumably. We will continue to expand coverage to include acyclovir and Flagyl. Continue current daptomycin and cefepime. This was discussed with on-call infectious disease doctor at [facility]. Formal infectious disease doctor to follow with a consult tomorrow. Lumbar puncture ordered for morning. Heparin is currently held at this time. Sister has been updated and expecting a call for consent in the morning pending lab studies and no contraindications to pursue LP. (2) Acute pyelonephritis: Continue cefepime pending urine and blood cultures and clinical improvement. Cont aggressive pain control measures. (3) Acute metabolic encephalopathy: Confusion secondary to combination of acute metabolic encephalopathy with underlying sepsis secondary to infection and underlying hepatic encephalopathy with hyperammonemia. The hepatic encephalopathy may have improved with the resolution of ammonia levels to normal but this is difficult to sort out at this time. There is consideration for delirium 2/2 uncontrolled pain from pyelo infection, possible encephalitis with persistent fever, possible bowel source, and possible medication side effect, etc. Performing LP in am. Head CT wo contrast performed yesterday was negative for bleed or acute intracranial abnormality. Heparin on hold for this. Stopping Keppra at this time in case of side effect. Keppra was originally added to cover topamax and gabapentin that were held while he wasn't able to tolerate PO. He will continue on his valproic acid and fosphenytoin. Will consult Neurology for assistance with this patient in light of persistent altered mental status and h/o seizure with AEDs on board. (4) Seizure disorder: Patient is on divalproex delayed release 1000 p.o. twice daily with a 500 mg dose at 1500 daily, phenytoin ER 400 mg p.o. twice daily, topiramate 200 mg p.o. twice daily, gabapentin 100 mg p.o. twice daily with a 400 mg nightly dose. We will convert oral medication to intravenous including Depacon 1000mg IV twice daily, 500mg IV at 1500 daily. Fosphenytoin 400 PE IV twice daily. Stopping Keppra now after a couple of doses in case it is adding to the confusion. (5) 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 (deep vein thrombosis): Subtherapeutic INR on warfarin at home. Placed on heparin therapy. Notably CT PE of chest reveals questionable linear nonocclusive filling defects within segmental branches of the left lower lobe possibly reflective of chronic emboli versus artifact. Will obtain lower extremity Dopplers when patient is clinically more stable. Need to hold heparin drip at this time in preparation for lumbar puncture in am. Warfarin is currently on hold as patient cannot tolerate p.o. (6) History of 2019 novel coronavirus disease (COVID-19): recently infected 3 months ago. (7) Gout: Allopurinol per home regimen is on hold. 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 (9) T2DM (type 2 diabetes mellitus): Continue basal bolus insulin to achieve euglycemia, glargine will be held as patient is currently n.p.o. (10) Chronic liver disease: ammonia level resolved to 22 this am. Held lactulose enemas as patient is very uncomfortable and in distress and febrile. Will cont to monitor ammonia levels and bowel movement frequency. (11) DVT prophylaxis: Heparin drip-held for now, caution in setting of thrombocytopenia likely as a result of developing sepsis and notable chronic liver disease Full code Disposition-advance patient to PCU status, updated patient's sister by phone. r egarding his current status and upcoming need for LP procedure in am. She is aware to give phone consent in am when needed. Lash[facility]ellon [facility]ated Discharge Date Admission Date: October 15, 2020 Subjective 59-year-old man with presented with sepsis secondary to Ministerio with gram-negative bacteremia. Cultures are still pending. Patient is still confused but is less obtunded today and is now opening his eyes. Unfortunately he is crying out in pain. He is improved with Dilaudid requiring upwards of 1 mg Dilaudid bolus. Out of concern for worsening of his pneumatosis coli I did curbside the on-call surgeon and we evaluated him at bedside together. His abdomen is less distended today and is not concerning for peritoneal signs. He does have however guarding and responsiveness with moaning and crying out when his left CVA area is manipulated. The patient is unable to give a review of systems or history. His ammonia level went down to 22 this morning overnight a rectal tube had been placed but there was leakage around this and this was discontinued. A cooling blanket was used, however, at this point it is likely better to opt for room temperature misting over his skin and using a fan in the room to keep him cool with his persistent fever. Tylenol has been scheduled. Out of concern for Keppra causing additional somnolence/altered mental status or confusion here this has been discontinued after the evening dose was given. He was reevaluated again later in the evening around 8 PM and was again crying out in pain but was again confused and unable to articulate what was wrong. Vital signs reflected a heart rate of 111 and temp was 39.5 consistently. He is unable to participate with a neurologic exam but is able to move all extremities equally and does not appear to have had any significant changes since this afternoon. I did contact the on-call infectious disease specialist at [facility] earlier this afternoon and discussed broadening his antimicrobial coverage empirically despite having no other evidence to support this outside of the gram-negative bacteremia and gram-negative bacteria. Flagyl and acyclovir were added empirically with a consideration of an LP in the morning after holding the heparin. After initially seeing him after that conversation, he appeared improved. However around the 8:00pm bedside visit he appeared persistently confused and febrile again. Therefore the heparin was held, I contacted the sister by phone and explained the need for possible central line overnight for better IV access and LP in the morning. I contacted the radiology suite and they are leaving a note for the radiologist. They confirmed the fluoroscopy schedule is very light in the morning. The LP procedure and respective lab studies were ordered ahead of time. It is uncertain where his platelets are INR may be, however, will defer that to the proceduralist in the morning to decide. The case was discussed with the embroidery operator on-call overnight. Review of Systems Review of Systems: Unobtainable due to cognitive status Physical Exam Physical Exam: CONSTITUTIONAL: WNWD, vitals as above, generally ill-appearing and confused. Appears to be in moderate distress. Crying out in pain EYES: pupils are round and equal bilaterally, normal conjunctivae, no scleral icterus ENT: external ear and nose normal, MMM RESPIRATORY: clear to auscultation bilaterally, no crackles, rales or wheezes, mild tachypnea with no increased respiratory effort. CARDIOVASCULAR: tachy rate and rhythm, S1 and 2 heard without murmurs, gallops or rubs, no JVD, no peripheral edema GASTROINTESTINAL: soft, mild guarding generally, more so with manipulation of left flank area, difficult to examine as patient is lifting his head up and flexing his abdominal muscles. Unable to follow instructions. MUSCULOSKELETAL: generalized weakness SKIN: warm and dry NEUROLOGIC: confused Results & Data Results & [facility] Vital Signs (Past 12 Hours) Vital Signs Temp Pulse Resp BP BP Pulse Ox 10/16/20 13:55 38.1 C H 98 H 10/16/20 11:55 127/94 10/16/20 11:31 38.9 C H 113 H 23 190/49 H 96 10/16/20 08:03 38.4 C H 109 H 23 132/76 98 10/16/20 06:37 39.5 C H 10/16/20 03:58 38.6 C H 110 H 19 144/83 H 98 Laboratory Results Short CBC 10/15/20 10/16/20 Range/Units 14:45 07:42 WBC 9.87 11.87 H (4.8-10.8) K/uL Hgb 13.7 L 13.0 L (14.0-18.0) g/dL Hct 38.0 L 37.5 L (42-52) % Plt Count 121 L 109 L (130-400) K/uL BMP 10/15/20 10/16/20 14:45 07:42 Sodium 144 144 Potassium 3.7 3.3 L Chloride 119 H 117 H Carbon Dioxide 15 L 18 L BUN 12 15 Creatinine 0.93 1.14 Glucose 179 H 194 H Calcium 7.9 L 8.2 L Liver Function 10/15/20 Range/Units 14:45 Albumin 2.7 L (3.4-5.0) gm/dl Medications Administered Current Inpatient Medications Allopurinol (Allopurinol 300 Mg Tab) 450 mg PO DAILY [facility] Stop: 11/14/20 08:59 Last Admin: 10/15/20 08:41 Dose: 450 mg Documented by: Amlodipine Besylate (Amlodipine Besylate 5 Mg Tab) 5 mg PO DAILY [facility] Stop: 11/14/20 08:59 Last Admin: 10/15/20 08:41 Dose: 5 mg Documented by: Atorvastatin Calcium (Atorvastatin 40 Mg Tab) 80 mg PO DAILY [facility] Stop: 11/14/20 08:59 Last Admin: 10/15/20 08:42 Dose: 80 mg Documented by: Lactulose 200 gm/ Sterile Water 700 ml/ BARCODE IDENTIFIER 1 ea 0 gm DC Q8H [facility] Stop: 11/14/20 15:44 Last Admin: 10/16/20 04:36 Dose: 1 gm Documented by: Dextrose (Dextrose 50% 50 Ml Syringe) 25 - 50 ml IV UD PRN; Protocol PRN Reason: Hypoglycemia Protocol Stop: 11/14/20 03:39 Divalproex Sodium (Divalproex Delay Release 500 Mg Tab) 1,000 mg PO BID [facility] Stop: 11/14/20 08:59 Last Admin: 10/15/20 08:40 Dose: 1,000 mg Documented by: Divalproex Sodium (Divalproex Delay Release 500 Mg Tab) 500 mg PO DAILY@1500 [facility] Stop: 11/14/20 14:59 Gabapentin (Gabapentin 100 Mg Cap) 100 mg PO BID@0900,1500 [facility] Stop: 11/14/20 08:59 Last Admin: 10/15/20 08:41 Dose: 100 mg Documented by: Gabapentin (Gabapentin 400 Mg Cap) 400 mg PO HS [facility] Stop: 11/14/20 20:59 Glucagon (Glucagon For Inj 1 Mg Vial) 1 mg SQ UD PRN; Protocol PRN Reason: Hypoglycemia Protocol Stop: 11/14/20 03:39 Glucose (Glucose 10 Tabs/Tube) 4 - 8 tabs PO UD PRN; Protocol PRN Reason: Hypoglycemia Protocol Stop: 11/14/20 03:39 Glucose (Glucose 40% Gel 15 Gm Tube) 15 - 30 gm PO UD PRN; Protocol PRN Reason: Hypoglycemia Protocol Stop: 11/14/20 03:39 Hydromorphone HCl (Hydromorphone Inj 0.5 Mg/0.5 Ml Syr) 0.5 mg IV Q2H PRN PRN Reason: severe pain Stop: 10/30/20 14:50 Heparin Sodium/Dextrose (Heparin Sodium/Dextrose) 25,000 units in 500 mls @ 22 mls/hr IV .[id number] [facility]; Protocol Stop: 11/14/20 06:14 Last Titration: 10/16/20 14:46 Dose: 1,100 units/hr, 22 mls/hr Documented by: Fosphenytoin Sodium 400 mgpe/ (Sodium Chloride) 33 mls @ 116 mls/hr IV BID [facility] Stop: 11/14/20 20:59 Last Infusion: 10/16/20 09:23 Dose: Infused Documented by: Valproic Acid 500 mg/ Dextrose 55 mls @ 55 mls/hr IV DAILY@1500 [facility] Stop: 11/14/20 15:59 Last Admin: 10/15/20 17:30 Dose: Not Given Documented by: Valproic Acid 1,000 mg/ (Dextrose) 110 mls @ 110 mls/hr IV BID [facility] Stop: 11/14/20 20:59 Last Infusion: 10/16/20 10:33 Dose: Infused Documented by: Levetiracetam 500 mg/ Sodium (Chloride) 105 mls @ 420 mls/hr IV Q12H [facility] Stop: 11/14/20 18:59 Last Infusion: 10/16/20 09:17 Dose: Infused Documented by: Cefepime HCl 2,000 mg/ Syringe 20 mls @ 5 mls/min IV Q8H [facility] Stop: 10/25/20 19:29 Last Admin: 10/16/20 11:43 Dose: 5 mls/min Documented by: Daptomycin 480 mg/ Syringe 9.6 mls @ 4.8 mls/min IV Q24H [facility]; Protocol Stop: 10/17/20 19:59 Last Admin: 10/15/20 21:16 Dose: 4.8 mls/min Documented by: Potassium Chloride 20 meq/ (Lactated Ringer's) 1,010 mls @ 80 mls/hr IV .[id number] [facility] Stop: 11/14/20 19:59 Last Admin: 10/16/20 08:48 Dose: 80 mls/hr Documented by: Metronidazole (Flagyl) 500 mg in 100 mls @ 100 mls/hr IV Q8H [facility]; Protocol Stop: 10/26/20 13:59 Last Admin: 10/16/20 14:12 Dose: 100 mls/hr Documented by: Acyclovir Sodium 800 mg/ (Dextrose) 266 mls @ 250 mls/hr IV Q8 [facility]; Protocol Stop: 10/26/20 13:59 Last Admin: 10/16/20 14:56 Dose: 250 mls/hr Documented by: Acetaminophen (Ofirmev) 1,000 mg in 100 mls @ 400 mls/hr IV Q8H [facility] Stop: 10/19/20 19:29 Insulin Aspart (Insulin Aspart 100 Units/Ml 3 Ml Pen) 0 units SC Q6 [facility] Stop: 11/14/20 17:59 Last Admin: 10/16/20 12:14 Dose: 3 units Documented by: Insulin Glargine (Insulin Glargine Solostar 100 Units/Ml 3 Ml Pen) 5 units SC HS [facility] Stop: 11/14/20 20:59 Last Admin: 10/15/20 21:22 Dose: 5 units Documented by: Lactulose (Lactulose Syrup 30 Gm/45 Ml Udp) 30 gm PO QID [facility] Stop: 11/14/20 08:59 Last Admin: 10/15/20 14:37 Dose: Not Given Documented by: Miscellaneous (Carbohydrates For Hypoglycemia ) 15 - 30 gm PO UD PRN PRN Reason: Hypoglycemia Protocol Stop: 11/14/20 03:39 Miscellaneous (Unit Dose Compound) 1 ea DC Q8H [facility] Stop: 11/15/20 17:59 Miscellaneous Information (Cefepime Consult Active) 1 ea N/A UD PRN PRN Reason: Consult Stop: 11/14/20 04:10 Miscellaneous Information (Acyclovir Consult Active) 1 ea N/A UD PRN PRN Reason: Consult Stop: 11/15/20 13:50 Miscellaneous Information (Daptomycin Consult Active) 1 ea N/A UD PRN PRN Reason: Consult Stop: 11/15/20 14:01 Phenytoin Sodium (Phenytoin Sodium Er 100 Mg Cap) 400 mg PO BID [facility] Stop: 11/14/20 08:59 Last Admin: 10/15/20 08:39 Dose: 400 mg Documented by: Tamsulosin HCl (Tamsulosin Hcl 0.4 Mg Cap) 0.4 mg PO HS [facility] Stop: 11/14/20 20:59 Topiramate (Topiramate 100 Mg Tab) 200 mg PO BID [facility] Stop: 11/14/20 08:59 Last Admin: 10/15/20 08:40 Dose: 200 mg Documented by: Warfarin Sodium (Warfarin Sod 5 Mg Tab) 5 mg PO DAILY@1600 [facility] Stop: 11/15/20 15:59
[2020-10-16] MEDS: VALPROATE SOD 500 MG in DEXTROSE 5% 50 ML IV SCH (15:19)
[2020-10-16] MEDS: UNIT DOSE COMPOUND PR SCH (18:05)
[2020-10-16] MEDS: ACETAMINOPHEN 1,000 MG/100 ML VIAL IV SCH (19:43)
[2020-10-16] MEDS: DAPTOMYCIN IV SCH (19:59)
[2020-10-16] MEDS: HYDROmorphone INJ 0.5 MG/0.5 ML SYR IV PRN ×3 (19:59→23:59)
[2020-10-16] MEDS: INSULIN GLARGINE SOLOSTAR 100 UNITS/ML 3 ML PEN SC SCH (20:34)
[2020-10-16 21:37] LABS: Basophils # (auto) 0.02 K/uL (0-0.2); Basophils % (auto) 0.2 %; Eosinophils # (auto) 0.02 K/uL (0-0.5); Eosinophils % (auto) 0.2 %; Hematocrit (blood only) 37.4 % (42-52); Hemoglobin 13.2 g/dL (14.0-18.0); Immature Granulocytes # (auto) 0.02 K/uL (0.00-0.02); Immature Granulocytes % (auto) 0.2 %; Lymphocytes # (auto) 1.63 K/uL (1.2-3.4); Lymphocytes % (auto) 15.5 %; Mean Corpuscular Hemoglobin 34.6 pg (25-34); Mean Corpuscular Hgb Conc 35.3 g/dL (32-36); Mean Corpuscular Volume 97.9 fL (80-100); Mean Platelet Volume 9.6 fL (7.4-10.4); Monocytes # (auto) 1.02 K/uL (0.11-0.59); Monocytes % (auto) 9.7 %; Neutrophils # (auto) 7.81 K/uL (1.4-6.5); Neutrophils % (auto) 74.2 %; Platelet Count 112 K/uL (130-400); RDW Coefficient of Variation 15.2 % (11.5-14.5); RDW Standard Deviation 54.9 fL (36.4-46.3); Red Blood Count 3.82 M/uL (4.7-6.1); White Blood Count 10.52 K/uL (4.8-10.8)
[2020-10-16 21:45] LABS: INR 2.1 (0.9-1.1); Prothrombin Time 20.3 Seconds (9.0-12.0)
[2020-10-16 21:54] LABS: BUN Creatinine Ratio 14.8 (10-20); Calcium 8.1 mg/dl (8.5-10.1); Creatinine Clr Calc Pharmacy 82.1 ml/min; Est GFR (African American) 73.7; Est GFR (Non-African American) 63.6; Magnesium 2.1 mg/dl (1.8-2.4); Potassium 3.6 mmol/L (3.5-5.1)
[2020-10-16] MEDS ORDERED: PHYTONADIONE 5 MG in SODIUM CHLORIDE 0.9% 50 ML IV ONE (22:00)
[2020-10-17] MEDS: INSULIN ASPART 100 UNITS/ML 3 ML PEN SC SCH ×4 (01:22→18:09)
[2020-10-17] MEDS: UNIT DOSE COMPOUND PR SCH ×3 (01:23→18:10)
[2020-10-17] MEDS: CEFEPIME 2,000 MG in SYRINGE 0 ML IV SCH ×2 (03:02→11:09)
[2020-10-17] MEDS: ACETAMINOPHEN 1,000 MG/100 ML VIAL IV SCH ×3 (03:02→19:56)
[2020-10-17] MEDS: HYDROmorphone INJ 0.5 MG/0.5 ML SYR IV PRN ×7 (03:08→19:57)
[2020-10-17] MEDS: metroNIDAZOLE 500 MG/100 ML BAG IV SCH (05:47)
[2020-10-17] MEDS: ACYCLOVIR SOD 800 MG in DEXTROSE 5% 250 ML IV SCH (05:47)
--- NOTE | 2020-10-17 07:12 | CT Scan Report ---
CT OF THE ABDOMEN AND PELVIS WITHOUT CONTRAST CLINICAL HISTORY: Worsening flank pain. COMPARISON STUDY: CT of the abdomen and pelvis October 15, 2020. TECHNIQUE: Axial images of the abdomen and pelvis were obtained without IV contrast. Images were revi ewed in the axial, sagittal, and coronal planes. Automated exposure control was utilized for the kathy dy. A dose lowering technique was utilized adhering to the principles of ALARA. FINDINGS: Visualized portions of the lower chest demonstrate several right rib fractures. Subpleural right lower lobe opacity is unchanged and favors scarring or atelectasis. Evaluation of the abdomen a nd pelvis is suboptimal on this unenhanced exam. In addition, there is motion artifact. Unenhanced im ages of the liver, adrenal glands and pancreas are unremarkable. There is no peripancreatic infiltrat ion. The gallbladder is moderately distended. No definite pericholecystic infiltration is noted. Mild splenomegaly is unchanged. The right kidney is surgically absent. There is no left hydronephrosis. M ild left perinephric infiltration persists. Bladder wall thickening is noted. A Edwards balloon and gas within the bladder present. No urinary calculi are identified. There is no evidence for a bowel obst ruction. Pneumatosis coli involving the ascending colon has slightly decreased since CT of October 15, 2020. The appendix is normal. There is no lymphadenopathy. No suspicious osseous lesions are present. IMPRESSION: 1. Persistent left perinephric infiltration, similar to CT of October 15, 2020. This may reflect an inf ectious process. No left hydronephrosis. No urinary calculi. Status post right nephrectomy. 2. Slight decrease in pneumatosis coli involving the right colon since CT of October 15, 2020. This rem ains nonspecific. A benign etiology is favored however bowel ischemia remains within the differential . 3. Moderate gallbladder distention. If right upper quadrant pain, ultrasound is recommended. 4. No bowel obstruction. 5. Exam compromised given motion artifact and lack of IV contrast. These findings will be called/faxed to the ordering provider at time of dictation. ACT 112: Negative or not required by law. Electronically signed by: Omari Foreman M.D. 10/17/2020 7:11 AM
[2020-10-17 08:03] LABS: Basophils # (auto) 0.02 K/uL (0-0.2); Basophils % (auto) 0.2 %; Eosinophils # (auto) 0.04 K/uL (0-0.5); Eosinophils % (auto) 0.4 %; Hemoglobin 13.4 g/dL (14.0-18.0); Immature Granulocytes # (auto) 0.02 K/uL (0.00-0.02); Immature Granulocytes % (auto) 0.2 %; Lymphocytes # (auto) 1.79 K/uL (1.2-3.4); Lymphocytes % (auto) 18.5 %; Mean Corpuscular Hemoglobin 34.4 pg (25-34); Mean Corpuscular Hgb Conc 35.3 g/dL (32-36); Mean Corpuscular Volume 97.4 fL (80-100); Mean Platelet Volume 10.5 fL (7.4-10.4); Monocytes # (auto) 1.12 K/uL (0.11-0.59); Monocytes % (auto) 11.6 %; Neutrophils # (auto) 6.67 K/uL (1.4-6.5); Neutrophils % (auto) 69.1 %; Platelet Count 109 K/uL (130-400); RDW Standard Deviation 53.2 fL (36.4-46.3); White Blood Count 9.66 K/uL (4.8-10.8)
[2020-10-17 08:13] LABS: Partial Thromboplastin Ratio 1.1; Partial Thromboplastin Time 28.5 Seconds (21.0-31.0)
[2020-10-17] MEDS: FOSPHENYTOIN IV SCH ×2 (08:36→21:49)
[2020-10-17] MEDS: POTASSIUM CHLORIDE 20 MEQ in LACTATED RINGER'S 1,000 ML IV SCH ×2 (08:36→19:57)
[2020-10-17] MEDS: SODIUM CHLORIDE IV SCH ×2 (08:36→21:49)
[2020-10-17] MEDS: VALPROATE SOD 1,000 MG in DEXTROSE 5% 100 ML IV SCH ×2 (08:38→19:55)
[2020-10-17 09:06] LABS: Albumin Level 2.4 gm/dl (3.4-5.0); BUN Creatinine Ratio 20.4 (10-20); Creatinine Clr Calc Pharmacy 101.1 ml/min; Est GFR (African American) 93.7; Est GFR (Non-African American) 80.9; Potassium 3.9 mmol/L (3.5-5.1)
[2020-10-17 09:08] LABS: Albumin Globulin Ratio 0.6 (0.9-2); Bilirubin,Total 0.6 mg/dl (0.2-1); Globulin 3.7 gm/dl (2.5-4.0); Total Protein 6.1 gm/dl (6.4-8.2)
[2020-10-17] MEDS ORDERED: HYDROmorphone INJ 1 MG/ML SYRINGE IV STA ×2 (09:30→17:30)
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
--- NOTE | 2020-10-17 12:27 | Hospitalist Progress Note ---
Date of Service October 17, 2020 Assessment & Plan (1) Sepsis: Gram-negative bacteremia Patient continues to remain febrile. Due to persistent fever and concerning mental status, antibiotic coverage was broadened. Continue with Cefepime, daptomycin, acyclovir and flagyl was added on 10/16 for broader coverage. Infectious disease has been consulted. Plan was to obtain lumbar puncture today. However, patient did not cooperate. Will hold the LP for now. (2) Acute pyelonephritis: Blood and urine cultures from 10/14+ with Klebsiella pneumonia. Repeat blood cultures were obtained today. (3) Acute metabolic encephalopathy: Multifactorial: Sepsis, acute metabolic encephalopathy, or possibly hepatic encephalopathy This morning patient is more awake and alert. At baseline he is oriented x3. However, mental status is improved today as patient is more awake. Plan was to obtain LP however patient did not cooperate. CT head without any concerning findings. Heparin was held for possible LP today. Continue with HAND CANDY MOLDER valproic acid and fosphenytoin. Neurology has been consulted for altered mental status given history of seizures. 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 twice daily, 500 mg dose at 1500 daily; curently on IV Phenytoin ER 400 mg p.o. twice daily; currently on iV Topiramate 200 mg p.o. twice daily. Gabapentin 100 mg p.o. twice daily with a 400 mg nightly dose. Currently patient remains on IV regimen. We will switch to p.o. once patient is able to take p.o. intake. (5) 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 (deep vein thrombosis): CT PE of chest reveals questionable linear nonocclusive filling defects within segmental branches of the left lower lobe possibly reflective of chronic emboli versus artifact. Will continue heparin infusion for now in case to proceed with lumbar puncture at some point. Hold HAND CANDY MOLDER Coumadin for now. Will also obtain lower extremity duplex (6) History of 2019 novel coronavirus disease (COVID-19): Recently infected 3 months ago. Patient remains on room air. WBC WNL. (7) Gout: Allopurinol per home regimen is on hold. (8) intermediate current use of 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 therapy: Plan as above. (9) T2DM (type 2 diabetes mellitus): Hold HAND CANDY MOLDER glargine for now. c/w ISS. (10) Chronic liver disease: Ammonia level of 22 on 10/16. Will repeat ammonia level tomorrow. (11) DVT prophylaxis: Heparin drip for now. 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 Keeps repeating "yeah/yeah". Moves all 4 extremities. Does not follow any commands. Does not appear to be in any distress during my encounter. However, RN has reported that patient has been in pain. Review of Systems Review of Systems: Unobtainable due to cognitive status Physical Exam Physical Exam: General: Awake and alert, does not appear to be in any distress HENT: NCAT, MMM, EOMI Eyes: PERRLA Neck: Supple, normal range of motion CVS: normal rate and rhythm Resp: b/l coarse breath sounds Abdomen: Soft, nondistended nontender Extremities: Absence of any edema Neuro: face symmetric, no focal deficit Skin: warm and dry, no rashes/lesions/errythema MSK: no joint swelling/erythema Results & Data Results & Data ([facility]) Vital Signs (Past 12 Hours) Vital Signs Temp Pulse Resp BP BP Pulse Ox 10/17/20 11:53 36.9 C 98 H 20 117/70 97 10/17/20 07:38 36.3 C L 85 16 157/83 H 85 L 10/17/20 05:54 37.6 C H 10/17/20 03:27 39.2 C H 112 H 20 139/73 97
[2020-10-17] MEDS: VALPROATE SOD 500 MG in DEXTROSE 5% 50 ML IV SCH (15:19)
[2020-10-17] MEDS: AMPICILLIN/SULBACTAM SOD 3,000 MG in 0.9 % SODIUM CHLORIDE 100 ML IV SCH ×2 (16:15→19:56)
[2020-10-17] MEDS: LACTULOSE 200 GM, WATER, STERILE IRRIG 700 ML, BARCODE IDENTIFIER 1 EA PR SCH (17:02)
[2020-10-17] MEDS: HEPARIN SODIUM/DEXTROSE 25,000 UNITS/500 ML BAG IV SCH (17:12)
[2020-10-17] MEDS ORDERED: HYDROmorphone INJ 1 MG/ML SYRINGE ONE (17:41)
[2020-10-17 18:10] LABS: Partial Thromboplastin Ratio 1.3; Partial Thromboplastin Time 33.6 Seconds (21.0-31.0)
[2020-10-17] MEDS: ENOXAPARIN INJ 120 MG/0.8 ML SYR SQ SCH (21:49)
[2020-10-18] MEDS: INSULIN ASPART 100 UNITS/ML 3 ML PEN SC SCH ×5 (00:21→21:27)
[2020-10-18] MEDS: LACTULOSE 200 GM, WATER, STERILE IRRIG 700 ML, BARCODE IDENTIFIER 1 EA PR SCH ×2 (01:20→09:36)
[2020-10-18] MEDS: UNIT DOSE COMPOUND PR SCH ×2 (01:20→11:04)
[2020-10-18] MEDS: HYDROmorphone INJ 0.5 MG/0.5 ML SYR IV PRN ×4 (01:29→20:16)
[2020-10-18] MEDS: ACETAMINOPHEN 1,000 MG/100 ML VIAL IV SCH ×2 (04:30→12:28)
[2020-10-18] MEDS: AMPICILLIN/SULBACTAM SOD 3,000 MG in 0.9 % SODIUM CHLORIDE 100 ML IV SCH ×4 (04:36→22:45)
[2020-10-18] MEDS: FOSPHENYTOIN IV SCH (07:52)
[2020-10-18] MEDS: SODIUM CHLORIDE IV SCH (07:52)
[2020-10-18] MEDS: VALPROATE SOD 1,000 MG in DEXTROSE 5% 100 ML IV SCH (08:04)
[2020-10-18 08:15] LABS: Hematocrit (blood only) 34.1 % (42-52); Hemoglobin 11.9 g/dL (14.0-18.0); Mean Corpuscular Hemoglobin 33.7 pg (25-34); Mean Corpuscular Hgb Conc 34.9 g/dL (32-36); Mean Corpuscular Volume 96.6 fL (80-100); RDW Coefficient of Variation 14.8 % (11.5-14.5); RDW Standard Deviation 52.7 fL (36.4-46.3); Red Blood Count 3.53 M/uL (4.7-6.1); White Blood Count 7.76 K/uL (4.8-10.8)
[2020-10-18 08:25] LABS: Partial Thromboplastin Ratio 1.3; Partial Thromboplastin Time 34.3 Seconds (21.0-31.0)
[2020-10-18] MEDS: GABAPENTIN 100 MG CAP PO SCH ×2 (08:29→10:28)
[2020-10-18 08:41] LABS: Albumin Level 2.3 gm/dl (3.4-5.0); BUN Creatinine Ratio 22.1 (10-20); Calcium 8.5 mg/dl (8.5-10.1); Creatinine Clr Calc Pharmacy 144.5 ml/min; Est GFR (African American) 119.5; Est GFR (Non-African American) 103.1; Potassium 3.5 mmol/L (3.5-5.1)
[2020-10-18 08:51] LABS: Albumin Globulin Ratio 0.7 (0.9-2); Bilirubin,Total 0.5 mg/dl (0.2-1); Globulin 3.4 gm/dl (2.5-4.0); Total Protein 5.7 gm/dl (6.4-8.2)
[2020-10-18 08:53] LABS: Mean Platelet Volume 10.4 fL (7.4-10.4); Platelet Count 90 K/uL (130-400)
[2020-10-18 08:54] LABS: Basophils # (auto) 0.01 K/uL (0-0.2); Basophils % (auto) 0.1 %; Eosinophils % (auto) 2.6 %; Immature Granulocytes # (auto) 0.02 K/uL (0.00-0.02); Immature Granulocytes % (auto) 0.3 %; Lymphocytes # (auto) 1.69 K/uL (1.2-3.4); Lymphocytes % (auto) 21.8 %; Monocytes # (auto) 0.98 K/uL (0.11-0.59); Monocytes % (auto) 12.6 %; Neutrophils # (auto) 4.86 K/uL (1.4-6.5); Neutrophils % (auto) 62.6 %; Platelet Estimate Decreased (Normal); Toxic Vacuolation 1+
[2020-10-18] MEDS: ENOXAPARIN INJ 120 MG/0.8 ML SYR SQ SCH ×2 (10:14→20:19)
[2020-10-18] MEDS: POTASSIUM CHLORIDE 20 MEQ in LACTATED RINGER'S 1,000 ML IV SCH (10:30)
[2020-10-18] MEDS ORDERED: Nursing to Pharmacy Communication SCH (10:45)
--- NOTE | 2020-10-18 13:31 | Hospitalist Progress Note ---
Date of Service October 18, 2020 Assessment & Plan (1) Sepsis: Gram-negative bacteremia Overall continues to show improvement. Fever curve is improved. Count is within normal limit. Appreciate infectious disease input. Cefepime, daptomycin, acyclovir and Flagyl has been discontinued. Continue with Unasyn. Plan to switch to amoxicillin at discharge. Plan for total of 14 days of antibiotic therapy from 10/15. Of note, attempt was made to obtain a lumbar puncture however patient was not cooperative. No indication at this point. (2) Acute pyelonephritis: Blood and urine cultures from 10/14+ with Klebsiella pneumonia. Repeat blo od cultures pending. (3) Acute metabolic encephalopathy: Multifactorial: Sepsis, acute metabolic encephalopathy, or possibly hepatic encephalopathy This morning patient is more awake and alert. At baseline he is oriented x3. Daily patient continues to show improvement. Today he was able to hold a conversation. Reported he was having significant penile pain. Asked the staff to remove the Hernandez catheter. Plan was to obtain LP however patient did not cooperate. CT head without any concerning findings. No indication for lumbar puncture at this point. Appreciate neurology input. 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 twice daily, 500 mg dose at 1500 daily Phenytoin ER 400 mg p.o. twice daily; Topiramate 200 mg p.o. twice daily Gabapentin 100 mg p.o. twice daily with a 400 mg nightly dose. Otain dilantin and depakote levels tomorrow. (5) 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 (deep vein thrombosis): CT PE of chest reveals questionable linear nonocclusive filling defects within segmental branches of the left lower lobe possibly reflective of chronic emboli versus artifact. Currently remains on Lovenox. Restarted Coumadin. Follow-up daily INR. Will also obtain lower extremity duplex (6) History of 2019 novel coronavirus disease (COVID-19): Recently infected 3 months ago. Patient remains on room air. WBC WNL. (7) Gout: Allopurinol per home regimen. 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 (9) T2DM (type 2 diabetes mellitus): Hold DIGITAL SALES EXECUTIVE glargine for now. c/w ISS. (10) Chronic liver disease: Ammonia level of 22 on 3/14. Ammonia today at 48. c/w mining captain po lactulose therapy. (11) DVT prophylaxis: currently on lovenox, c/w mining captain coumadin. f/u daily inr. Full code Admission and Anticipated Discharge Date Admission Date: October 15, 2020 Subjective Patient is much more awake and alert today. He was able to tell me his name. Did endorse that he feels hungry. Reported that he is having significant pain in the penis. Denies any chest pain or shortness of breath. Denies any abdominal pain. Denies any nausea or vomiting. Does not appear to be in any distress. Review of Systems Review of Systems: All systems reviewed & are unremarkable except as noted in HPI & below Physical Exam Physical Exam: General: Awake and alert, does not appear to be in any distress HENT: NCAT, MMM, EOMI Eyes: PERRLA Neck: Supple, normal range of motion CVS: normal rate and rhythm Resp: b/l coarse breath sounds Abdomen: Soft, nondistended nontender Extremities: Absence of any edema Neuro: face symmetric, no focal deficit Skin: warm and dry, no rashes/lesions/errythema MSK: no joint swelling/erythema hernandez catheter in place. Results & Data Results & Data ([facility]) Vital Signs (Past 12 Hours) Vital Signs Temp Pulse Resp BP Pulse Ox 10/18/20 08:00 36.6 C 108 H 20 132/72 98 10/18/20 05:15 36.8 C 10/18/20 03:00 37.7 C H 107 H 20 163/79 H 96
[2020-10-18] MEDS: DIVALPROEX DELAY RELEASE 500 MG TAB PO SCH ×4 (14:16→15:29)
[2020-10-18] MEDS: LACTULOSE SYRUP 30 GM/45 ML UDP PO SCH ×2 (14:30→22:47)
[2020-10-18 14:46] LABS: Prothrombin Time 9.9 Seconds (9.0-12.0)
--- NOTE | 2020-10-18 15:25 | Neurology Progress Note ---
Date of Service October 18, 2020 Assessment & Plan (1) Seizure disorder: 1. continue depakote 1000 mg BID 2. dilantin 400 mg BID 3. gabapentin 100 mg BID and 400 mg bedtime- restart due to stated pain in feet- should be able to tolerate now 4. topamax 200 mg twice daily 5. EEG ordered - but cancelled will not be able to obtain- not needed at this point 6. obtain dilantin and depakote levels in 2 days (2) Altered mental status: 1. he is improving every day- likely antibiotic therapy has improved mental status 2. would restart gabapentin 100 mg TID and 400 mg at bedtime. (3) Sepsis: 1. continue to treat to culture 2. LP may not be useful at this point with antibiotics on board now for 3 days. not needed 3. discharge when medically stable 4. if able will see by video in follow up 4-6 weeks Admission and Anticipated Discharge Date Admission Date: October 15, 2020 Supervising Physician Co-Signing Physician Notes I have seen and discussed above patient with Dr Dawit Leal, neurology Migel is remarkably different than he was yesterday. He is sitting up in a chair is awake conversant although clearly has some cognitive impairment which I suspect is his baseline and has slightly dysarthric speech with some explosive features and has a polyneuropathy related to his diabetes and complicated by some edema and dermopathy which is painful He is I believe capable of taking medications orally and at this point I would simply reinstitute his prior anticonvulsant regimen with Depakote, Dilantin, Topamax and gabapentin which I think is probably on board for control of nerve pain and is at such a low dose of this probably not an effective anticonvulsant in the setting His admission anticonvulsant levels were in the therapeutic range so I see no reason to change the dosing at this point and would simply return to the doses he reports taking at home Neurology is going to sign off the case at this point as it appears that he is well on his way to recovery and had undoubtedly a toxic metabolic encephalopathy related to his underlying systemic infection rather than anything directly involving the nervous system and probably unrelated to his ammonia levels which for him were in the range as they usually are when he is admitted to the ostal Dawit Leal MD Subjective Migel is a 59 year old male who presented to [facility] ED 10/15/2020 with generalized weakness. He was too weak to stand on own with significant urinary urgency. He was febrile in ED and straight cath UA consistent with UTI and sepsis treatment initiated. He was given antibiotics and IV fluids and then admitted. He is on broad spectrum antibiotics and has been febrile off and on over the course of admission. A LP was discussed to r/o CSF involvement. His Depakote level and Dilantin levels are therapeutic. He was unable to have the LP because he is not laying still. He is up and sitting in a bedside chair. He is answering simple questions appropriately. He is having foot pain with is likely his neuropathy. denies CP, SOB, abdominal pain, vision changes. Review of Systems Review of Systems: All systems reviewed & are unremarkable except as noted in HPI & below Physical Exam Physical Exam: Physical Exam: Constitutional: appearance nourished, obese Ears, Nose, Mouth and Throat: mucous membranes moist, no injection and skin normal, eyes normal Cardiovascular: normal S-1 and S-2 and regular rate and rhythm Respiratory: course breath sounds Musculoskeletal: no peripheral edema and decreased distal pulses Skin: no stigmata of neurocutaneous disease noted and normal and intact Eyes: extraocular muscles intact (EOMI) NEUROLOGIC EXAMINATION: Mental status: Alert and interactive and responds clearly to simple commands Oriented to person Cranial Nerves facial symmetry Reflexes: Deep tendon reflexes decreased in LE Sensory: intact to light touch Coordination: finger to nose no bi pass Gait/Stance: sitting up at bedside chair Strength: hand rn transition biceps triceps bilaterally 5/5, hip flex 5/5 Results & Data ([facility]) Vital Signs (Past 12 Hours) Vital Signs Temp Pulse Pulse Resp BP Pulse Ox 10/18/20 14:30 116 H 10/18/20 09:00 105 H 10/18/20 08:00 36.6 C 108 H 20 132/72 98 10/18/20 05:15 36.8 C Laboratory Results Abnormal lab results 10/17/20 10/17/20 10/18/20 Range/Units 17:24 17:38 00:17 RBC (4.7-6.1) M/uL Hgb (14.0-18.0) g/dL Hct (42-52) % RDW Std Deviation (36.4-46.3) fL RDW Coeff of Pepper (11.5-14.5) % Plt Count (130-400) K/uL [place] # (Auto) (0.11-0.59) K/uL Platelet Estimate (Normal) APTT 33.6 H (21.0-31.0) Seconds Sodium (136-145) mmol/L Chloride (98-107) mmol/L Carbon Dioxide (21-32) mmol/L BUN/Creatinine Ratio (10-20) Glucose (70-99) mg/dl POC Glucose 149 H 149 H (70-99) mg/dl Ammonia (11-32) umol/L Total Protein (6.4-8.2) gm/dl Albumin (3.4-5.0) gm/dl Albumin/Globulin Ratio (0.9-2) 10/18/20 10/18/20 10/18/20 Range/Units 06:00 07:59 07:59 RBC 3.53 L (4.7-6.1) M/uL Hgb 11.9 L (14.0-18.0) g/dL Hct 34.1 L (42-52) % RDW Std Deviation 52.7 H (36.4-46.3) fL RDW Coeff of Pepper 14.8 H (11.5-14.5) % Plt Count 90 L (130-400) K/uL [place] # (Auto) 0.98 H (0.11-0.59) K/uL Platelet Estimate Decreased L (Normal) APTT (21.0-31.0) Seconds Sodium 146 H (136-145) mmol/L Chloride 117 H (98-107) mmol/L Carbon Dioxide 20 L (21-32) mmol/L BUN/Creatinine Ratio 22.1 H (10-20) Glucose 163 H (70-99) mg/dl POC Glucose 166 H (70-99) mg/dl Ammonia (11-32) umol/L Total Protein 5.7 L (6.4-8.2) gm/dl Albumin 2.3 L (3.4-5.0) gm/dl Albumin/Globulin Ratio 0.7 L (0.9-2) 10/18/20 10/18/20 10/18/20 Range/Units 07:59 08:03 11:24 RBC (4.7-6.1) M/uL Hgb (14.0-18.0) g/dL Hct (42-52) % RDW Std Deviation (36.4-46.3) fL RDW Coeff of Pepper (11.5-14.5) % Plt Count (130-400) K/uL [place] # (Auto) (0.11-0.59) K/uL Platelet Estimate (Normal) APTT 34.3 H (21.0-31.0) Seconds Sodium (136-145) mmol/L Chloride (98-107) mmol/L Carbon Dioxide (21-32) mmol/L BUN/Creatinine Ratio (10-20) Glucose (70-99) mg/dl POC Glucose 154 H (70-99) mg/dl Ammonia 48.4 H (11-32) umol/L Total Protein (6.4-8.2) gm/dl Albumin (3.4-5.0) gm/dl Albumin/Globulin Ratio (0.9-2) Diagnostic Findings no new imaging (1) Sepsis Sepsis acute organ dysfunction status: without acute organ dysfunction Sepsis type: sepsis due to unspecified organism Qualified Code(s): A41.9 - Sepsis, unspecified organism (2) Altered mental status Altered mental status type: unspecified Qualified Code(s): R41.82 - Altered mental status, unspecified
[2020-10-18] MEDS: WARFARIN SOD 5 MG TAB PO SCH (16:33)
--- NOTE | 2020-10-18 18:14 | Ultrasound Report ---
BILATERAL LOWER EXTREMITY VENOUS DOPPLER CLINICAL HISTORY: Bilateral lower extremity swelling. COMPARISON STUDY: Bilateral lower extremity venous Doppler ultrasound August 31, 2020. TECHNIQUE: Sonography of the deep venous system of the bilateral lower extremities was performed. Co mpression and augmentation were evaluated. FINDINGS: The bilateral common femoral, superficial femoral and popliteal veins were compressible. A ugmentation was normal. Chronic fibrous stranding within the left superficial femoral vein is unchang ed as ultrasound August 31, 2020. Flow was shown within the deep calf vessels. IMPRESSION: 1. No evidence of acute deep venous thrombus within the bilateral lower extremities. 2. No change in fibrous stranding within the left superficial femoral vein since ultrasound of Januar 2020. This represents chronic deep venous thrombus. ACT 112: Negative or not required by law. Electronically signed by: Omari Foreman M.D. 10/18/2020 6:13 PM
[2020-10-18] MEDS: PHENYTOIN SODIUM ER 100 MG CAP PO SCH (20:18)
[2020-10-18] MEDS: TOPIRAMATE 100 MG TAB PO SCH (20:18)
[2020-10-18] MEDS: GABAPENTIN 400 MG CAP PO SCH (20:19)
[2020-10-18] MEDS: TAMSULOSIN HCL 0.4 MG CAP PO SCH (20:20)
[2020-10-19] MEDS: AMPICILLIN/SULBACTAM SOD 3,000 MG in 0.9 % SODIUM CHLORIDE 100 ML IV SCH ×4 (04:41→22:00)
[2020-10-19 06:43] LABS: Basophils # (auto) 0.01 K/uL (0-0.2); Basophils % (auto) 0.2 %; Hematocrit (blood only) 36.6 % (42-52); Immature Granulocytes # (auto) 0.02 K/uL (0.00-0.02); Immature Granulocytes % (auto) 0.3 %; Lymphocytes # (auto) 2.12 K/uL (1.2-3.4); Lymphocytes % (auto) 32.3 %; Mean Corpuscular Hemoglobin 34.5 pg (25-34); Mean Corpuscular Hgb Conc 35.5 g/dL (32-36); Mean Corpuscular Volume 97.1 fL (80-100); Mean Platelet Volume 10.6 fL (7.4-10.4); Monocytes # (auto) 0.71 K/uL (0.11-0.59); Monocytes % (auto) 10.8 %; Neutrophils % (auto) 53.4 %; Platelet Count 110 K/uL (130-400); RDW Coefficient of Variation 14.9 % (11.5-14.5); RDW Standard Deviation 52.8 fL (36.4-46.3); Red Blood Count 3.77 M/uL (4.7-6.1); White Blood Count 6.56 K/uL (4.8-10.8)
[2020-10-19 06:52] LABS: Partial Thromboplastin Ratio 1.2; Partial Thromboplastin Time 31.4 Seconds (21.0-31.0); Prothrombin Time 10.1 Seconds (9.0-12.0)
[2020-10-19] MEDS: PHENYTOIN SODIUM ER 100 MG CAP PO SCH ×2 (08:03→21:59)
[2020-10-19] MEDS: ENOXAPARIN INJ 120 MG/0.8 ML SYR SQ SCH ×2 (08:04→21:59)
[2020-10-19] MEDS: TOPIRAMATE 100 MG TAB PO SCH ×2 (08:04→21:58)
[2020-10-19] MEDS: LACTULOSE SYRUP 30 GM/45 ML UDP PO SCH ×3 (08:05→21:55)
[2020-10-19] MEDS: INSULIN ASPART 100 UNITS/ML 3 ML PEN SC SCH ×4 (08:06→22:00)
--- NOTE | 2020-10-19 13:28 | Hospitalist Progress Note ---
Date of Service October 19, 2020 Assessment & Plan (1) Sepsis: (2) Acute pyelonephritis: Sepsis secondary to complicated klebsiella UTI Acute left pyelonephritis Blood and urine cultures from 10/14+ with Klebsiella pneumonia. Repeat blood cultures negative so far CT abdomen and pelvis show persistent left perinephric infiltration Overall continues to show improvement. Fever has resolved. Infectious disease recommendations noted. Cefepime, daptomycin, acyclovir and Flagyl had been discontinued. Currently on Unasyn. Plan to switch to amoxicillin tomorrow on discharge. Plan for total of 14 days of antibiotic therapy from 10/15. (3) Acute metabolic encephalopathy: Multifactorial: Sepsis, acute metabolic encephalopathy or possibly hepatic encephalopathy Patient is currently alert and oriented x3. Plan was to obtain LP however patient did not cooperate. CT head without any concerning findings. No indication for lumbar puncture at this point. Ammonia was elevated Neurologist evaluation and recommendations noted Plan to follow-up with neurology in 4 to 6 weeks (4) Seizure disorder: Home medications include: Divalproex delayed release 1000 p.o. twice daily, 500 mg dose at 1500 daily Phenytoin ER 400 mg p.o. twice daily; Topiramate 200 mg p.o. twice daily Gabapentin 100 mg p.o. twice daily with a 400 mg nightly dose. Get dilantin and depakote levels today per neuro recs (5) 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 (deep vein thrombosis): CT PE of chest reveals questionable linear nonocclusive filling defects within segmental branches of the left lower lobe possibly reflective of chronic emboli versus artifact. Currently remains on Lovenox and Coumadin. Follow-up daily INR. LE duplex - No acute DVT. Has chronic DVT (6) History of 2019 novel coronavirus disease (COVID-19): Recently infected 3 months ago. Patient remains on room air. (7) Gout: Allopurinol per home regimen. (8) detention current use of 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 therapy: Plan as above. (9) T2DM (type 2 diabetes mellitus): Continue ISS. Resume home antidiabetic regimen on discharge (10) Chronic liver disease: Ammonia level of 123 on 10/15 -->22 on 10/16. Ammonia yesterday at 48. Continue home po lactulose therapy. (11) DVT prophylaxis: Lovenox and warfarin for now Full code Admission and Anticipated Discharge Date Admission Date: October 15, 2020 Subjective Patient seen and examined. Patient reports feeling better today RN reports urinary incontinence. Patient reports that this started during this hospitalization. Denies dysuria, frequency, urgency. Last fever was 2 days ago. Denies chills, nausea, vomiting, abdominal pain, diarrhea Physical Exam Constitutional: + well hydrated; no acute distress Eyes: PERRL, conjunctivae normal, anicteric sclerae ENMT: external ear and nose normal, oropharynx normal Respiratory: normal respiratory effort, lungs clear to auscultation Cardiovascular: Rate/Rhythm: regular rate and regular rhythm S1-S2 Gastrointestinal (Abdomen): normal bowel sounds, soft, nontender, no hepatosplenomegaly Musculoskeletal: Trace pedal edema with stasis changes Neurologic: PERRL, EOMI, accommodation nl, no face palsy, no dysarthria Psychiatric: A+Ox3, euthymic affect Genitourinary: no CVA tenderness Results & Data Results & Data ([facility]) Vital Signs (Past 12 Hours) Vital Signs Temp Pulse Resp BP Pulse Ox 10/19/20 11:05 36.4 C L 96 H 20 135/72 99 10/19/20 07:02 37.1 C 106 H 18 147/74 H 98 10/19/20 02:50 36.9 C 105 H 20 126/72 98 Laboratory Results Laboratory Results - last 24 hr 10/18/20 10/18/20 10/19/20 16:28 20:21 06:16 WBC 6.56 RBC 3.77 L Hgb 13.0 L Hct 36.6 L MCV 97.1 MCH 34.5 H MCHC 35.5 RDW Std Deviation 52.8 H RDW Coeff of Pepper 14.9 H Plt Count 110 L MPV 10.6 H Immature Gran % (Auto) 0.3 Neut % (Auto) 53.4 Lymph % (Auto) 32.3 [place] % (Auto) 10.8 Eos % (Auto) 3.0 Baso % (Auto) 0.2 Neut # (Auto) 3.50 Lymph # (Auto) 2.12 [place] # (Auto) 0.71 H Eos # (Auto) 0.20 Baso # (Auto) 0.01 Immature Gran # (Auto) 0.02 PT INR APTT PTT Ratio POC Glucose 201 H 147 H 10/19/20 10/19/20 10/19/20 06:16 07:03 11:25 WBC RBC Hgb Hct MCV MCH MCHC RDW Std Deviation RDW Coeff of Pepper Plt Count MPV Immature Gran % (Auto) Neut % (Auto) Lymph % (Auto) [place] % (Auto) Eos % (Auto) Baso % (Auto) Neut # (Auto) Lymph # (Auto) [place] # (Auto) Eos # (Auto) Baso # (Auto) Immature Gran # (Auto) PT 10.1 INR 1.0 APTT 31.4 H PTT Ratio 1.2 POC Glucose 171 H 233 H
[2020-10-19 16:18] LABS: Phenytoin (Dilantin) 8.6 mcg/ml (10-20)
[2020-10-19] MEDS: DIVALPROEX DELAY RELEASE 500 MG TAB PO SCH ×2 (16:44→21:59)
[2020-10-19] MEDS: WARFARIN SOD 5 MG TAB PO SCH (16:45)
[2020-10-19] MEDS ORDERED: DIVALPROEX DELAY RELEASE 500 MG TAB PO ONE (17:16)
[2020-10-19] MEDS ORDERED: PHENYTOIN 100 MG/4 ML UDP PO ONE (17:17)
[2020-10-19] MEDS: GABAPENTIN 400 MG CAP PO SCH (21:58)
[2020-10-19] MEDS: TAMSULOSIN HCL 0.4 MG CAP PO SCH (21:59)
[2020-10-20] MEDS: AMPICILLIN/SULBACTAM SOD 3,000 MG in 0.9 % SODIUM CHLORIDE 100 ML IV SCH (04:04)
[2020-10-20 06:41] LABS: Hematocrit (blood only) 30.2 % (42-52); Hemoglobin 10.8 g/dL (14.0-18.0); Mean Corpuscular Hemoglobin 34.1 pg (25-34); Mean Corpuscular Hgb Conc 35.8 g/dL (32-36); Mean Corpuscular Volume 95.3 fL (80-100); Mean Platelet Volume 9.9 fL (7.4-10.4); Platelet Count 129 K/uL (130-400); RDW Coefficient of Variation 14.7 % (11.5-14.5); RDW Standard Deviation 51.3 fL (36.4-46.3); Red Blood Count 3.17 M/uL (4.7-6.1); White Blood Count 5.53 K/uL (4.8-10.8)
[2020-10-20 06:58] LABS: INR 1.1 (0.9-1.1); Partial Thromboplastin Ratio 1.3; Partial Thromboplastin Time 33.8 Seconds (21.0-31.0); Prothrombin Time 11.3 Seconds (9.0-12.0)
[2020-10-20 07:11] LABS: Creatinine Clr Calc Pharmacy 120.6 ml/min; Est GFR (African American) 111.7; Est GFR (Non-African American) 96.4
[2020-10-20] MEDS: TOPIRAMATE 100 MG TAB PO SCH (08:04)
[2020-10-20] MEDS: INSULIN ASPART 100 UNITS/ML 3 ML PEN SC SCH ×2 (08:04→12:09)
[2020-10-20] MEDS: DIVALPROEX DELAY RELEASE 500 MG TAB PO SCH (08:05)
[2020-10-20] MEDS: PHENYTOIN SODIUM ER 100 MG CAP PO SCH (08:06)
[2020-10-20] MEDS: LACTULOSE SYRUP 30 GM/45 ML UDP PO SCH (08:07)
[2020-10-20] MEDS: ENOXAPARIN INJ 120 MG/0.8 ML SYR SQ SCH (08:07)
[2020-10-20] MEDS ORDERED: AMOXICILLIN 500 MG CAP PO SCH (09:00)
[2020-10-20] MEDS ORDERED: AMOXICILLIN/CLAVULANATE 875 MG TAB PO SCH (09:00)
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
== END 2020-10-20 14:12 | DRG 871 ==
LOC: ED 22:38 → 2N 10-15 01:32 → SUATTDRO 10-15 01:32 → 2N 10-15 02:31 → 2S 10-15 15:11

== ENCOUNTER 2021-06-27 18:43 | Inpatient (IN) ==
--- NOTE | 2021-06-27 20:53 | XRay Report ---
XR chest 2V PA/lateral HISTORY: 60 years-old Male Fever/ back pain acute fever with back pain COMPARISON: Chest radiograph 10/14/2020 TECHNIQUE: PA and lateral views of the chest FINDINGS: Cardiac silhouette is enlarged. Opacity of the right cardiophrenic redemonstrated suggestive of a pro minent epicardial fat pad. Nonspecific coarsening of interstitium. Suggested small pleural effusions. Pulmonary vascular congestion. Degenerative changes of the shoulders and spine. IMPRESSION: 1. Cardiomegaly with pulmonary vascular congestion and interstitial coarsening suggestive of pulmonar y edema versus interstitial pneumonitis. 2. Small pleural effusions. ACT 112: Negative or not required by law. The above report was generated using voice recognition software. It may contain grammatical, syntax o r spelling errors. Electronically signed by: Chito Chapman M.D. 06/27/2021 8:51 PM
[2021-06-27 22:03] LABS: Appearance Urine Clear (Clear); Bacteria Urine Automated Negative (Negative); Bilirubin Urine Negative (Negative); Blood Urine Trace (Negative); Color Urine Dark Yellow; Glucose Urine UA 2+ (Negative); Ketones Urine Trace (Negative); Leukocyte Esterase Urine Negative (Negative); Nitrite Urine Negative (Negative); Protein Urine 1+ (Negative); RBC Urine Automated 0-4 /hpf (0-4); Specific Gravity Urine 1.024 (1.000-1.030); Urobilinogen Urine Negative (Negative); pH Urine 5.5 (4.5-7.5)
[2021-06-27] MEDS ORDERED: SODIUM CHLORIDE 0.9% 1000ML 1,000 ML IV ONE (23:19)
[2021-06-27] MEDS ORDERED: MoRPHine SULFATE 4 MG/ML 1 ML CARP\\VIAL IV STA (23:25)
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
[2021-06-28 00:03] LABS: Influenza A virus by PCR Positive (Negative); Influenza B virus by PCR Negative (Negative)
[2021-06-28] MEDS ORDERED: OSELTAMIVIR PHOSPHATE 75 MG CAP PO STA (00:06)
[2021-06-28 00:12] LABS: Hematocrit (blood only) 43.6 % (42-52); Hemoglobin 15.1 g/dL (14.0-18.0); Mean Corpuscular Hemoglobin 35.7 pg (25-34); Mean Corpuscular Hgb Conc 34.6 g/dL (32-36); Mean Corpuscular Volume 103.1 fL (80-100); Platelet Count 86 K/uL (130-400); RDW Coefficient of Variation 14.8 % (11.5-14.5); RDW Standard Deviation 56.4 fL (36.4-46.3); Red Blood Count 4.23 M/uL (4.7-6.1); White Blood Count 7.34 K/uL (4.8-10.8)
[2021-06-28 00:15] LABS: Albumin Level 3.1 gm/dl (3.4-5.0); BUN Creatinine Ratio 11.9 (10-20); Calcium 8.1 mg/dl (8.5-10.1); Creatinine Clr Calc Pharmacy 89.4 ml/min; Est GFR (Non-African American) 66.4 ml/min; Potassium 3.4 mmol/L (3.5-5.1)
[2021-06-28 00:17] LABS: Albumin Globulin Ratio 0.9 (0.9-2); Bilirubin,Total 0.3 mg/dl (0.2-1); Globulin 3.3 gm/dl (2.5-4.0); Total Protein 6.4 gm/dl (6.4-8.2)
[2021-06-28 00:21] LABS: Basophils # (auto) 0.01 K/uL (0-0.2); Basophils % (auto) 0.1 %; Eosinophils # (auto) 0.04 K/uL (0-0.5); Eosinophils % (auto) 0.5 %; Immature Granulocytes # (auto) 0.02 K/uL (0.00-0.02); Immature Granulocytes % (auto) 0.3 %; Lymphocytes # (auto) 0.67 K/uL (1.2-3.4); Lymphocytes % (auto) 9.1 %; Monocytes # (auto) 0.61 K/uL (0.11-0.59); Monocytes % (auto) 8.3 %; Neutrophils # (auto) 5.99 K/uL (1.4-6.5); Neutrophils % (auto) 81.7 %
[2021-06-28 00:58] LABS: INR 1.8 (0.9-1.1); Prothrombin Time 17.4 Seconds (9.0-12.0)
[2021-06-28] MEDS ORDERED: OPTIRAY 320 100ml IV ONE (01:43)
[2021-06-28] MEDS ORDERED: FUROSEMIDE INJ 20 MG/2 ML VIAL IV ONE (03:14)
[2021-06-28] MEDS ORDERED: LACTULOSE SYRUP 20 GM/30 ML UDC PO ONE (03:27)
[2021-06-28] MEDS ORDERED: POTASSIUM CHLORIDE PWD 20 MEQ PACK PO STA (03:36)
[2021-06-28] MEDS ORDERED: ACETAMINOPHEN 325 MG TAB PO STA (03:38)
[2021-06-28 03:50] LABS: Magnesium 1.6 mg/dl (1.8-2.4)
[2021-06-28] MEDS ORDERED: FUROSEMIDE 40 MG/4 ML VIAL IV ONE (04:03)
[2021-06-28] MEDS ORDERED: MAGNESIUM SULFATE / D5W 1 GM/100 ML BAG IV ONE (04:52)
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
[2021-06-28 05:28] LABS: Phenytoin (Dilantin) 13.4 mcg/ml (10-20)
[2021-06-28] MEDS ORDERED: Heparin IV Adult Wt-Based Low-Dose *NO* Bolus Protocol IV SCH (06:21)
[2021-06-28] MEDS ORDERED: GLUCOSE 10 TABS/TUBE PO PRN (07:02)
[2021-06-28] MEDS ORDERED: DEXTROSE 50% 50 ML SYRINGE IV PRN (07:02)
[2021-06-28] MEDS ORDERED: CARBOHYDRATES FOR HYPOGLYCEMIA PO PRN (07:02)
[2021-06-28] MEDS ORDERED: GLUCAGON FOR INJ 1 MG VIAL SQ PRN (07:02)
[2021-06-28] MEDS ORDERED: GLUCOSE 40% GEL 15 GM TUBE PO PRN (07:02)
[2021-06-28] MEDS ORDERED: PROMETHAZINE HCL 12.5 MG in SODIUM CHLORIDE 0.9% 50 ML IV PRN (07:02)
--- NOTE | 2021-06-28 07:22 | CT Scan Report ---
CT OF THE ABDOMEN AND PELVIS WITH CONTRAST CLINICAL HISTORY: Upper back pain. COMPARISON STUDY: CT of the abdomen and pelvis October 17, 2020. TECHNIQUE: Following IV administration of 90 mL of Optiray, axial images of the abdomen and pelvis we re obtained from the lung bases to the proximal femurs. Images were reviewed in the axial, sagittal, and coronal planes. IV contrast was administered without complication. Automated exposure control wa s utilized for the study. A dose lowering technique was utilized adhering to the principles of ALARA . CT DOSE: 1889.97 mGy.cm FINDINGS: This exam is compromised by motion artifact and artifact from body wall contacting the mei ry. No pneumatosis, free air or portal venous gas is present. Upper abdominal ventral hernia is again noted. No hepatic lesions are identified. There is no biliary or pancreatic ductal dilatation. Hepat osplenomegaly is unchanged. Right kidney is surgically absent. There is no abnormality within the rig ht nephrectomy bed. Left perinephric stranding has decreased. There is no left hydronephrosis. There is no evidence for a bowel obstruction. Colon is mildly fluid-filled. The appendix is normal. No lymp hadenopathy is present. Mild loss of height of the superior endplate of L2 is age indeterminate but n ew since CT of October 17, 2020. IMPRESSION: 1. Mild compression fracture of the superior endplate of L3 which is age indeterminate but new since CT of October 17, 2020. This finding will be called/faxed to ordering provider at time of dictation. 2. No bowel obstruction. Mildly fluid-filled colon. 3. Status post right nephrectomy. No abnormality within the right nephrectomy bed. 4. Exam compromised by motion artifact and artifact from body wall contacting the gantry. ACT 112: Negative or not required by law. Electronically signed by: Omari Foreman M.D. 06/28/2021 7:20 AM
--- NOTE | 2021-06-28 07:39 | Ultrasound Report ---
US venous doppler LE BI CLINICAL HISTORY: Bilateral lower extremity pain COMPARISON: None available at the time of this dictation. TECHNIQUE: Bilateral lower extremity real-time compression venous ultrasound with Color Doppler imagi ng. Utilizing real-time ultrasonic imaging multiple real time high-resolution ultrasonic images with comp ression and noncompression maneuvers of the deep venous system in addition to color doppler imaging w ere performed from the common femoral vein through the proximal calf veins. FINDINGS: On the right side, there is normal compressibility of the deep venous system from the common femoral vein through the proximal calf veins. No current evidence of acute thrombosis is identified. On the left side, there is noncompressible thrombus within the superficial femoral vein proximally wi th thickening of the wall extending to the mid and distal superficial femoral vein and popliteal vein . The common femoral vein is patent. Impression: 1. Positive for deep venous thrombosis on the left. 2. No evidence for DVT on the right. ACT 112: Negative or not required by law. Electronically signed by: Lázaro Guevara M.D. 06/28/2021 7:38 AM
[2021-06-28 08:29] LABS: Hematocrit (blood only) 44.3 % (42-52); Hemoglobin 15.2 g/dL (14.0-18.0); Mean Corpuscular Hemoglobin 35.4 pg (25-34); Mean Corpuscular Hgb Conc 34.3 g/dL (32-36); Mean Corpuscular Volume 103.3 fL (80-100); RDW Coefficient of Variation 14.9 % (11.5-14.5); RDW Standard Deviation 56.1 fL (36.4-46.3); Red Blood Count 4.29 M/uL (4.7-6.1); White Blood Count 7.51 K/uL (4.8-10.8)
[2021-06-28 08:41] LABS: Basophils # (auto) 0.02 K/uL (0-0.2); Basophils % (auto) 0.3 %; Eosinophils # (auto) 0.02 K/uL (0-0.5); Eosinophils % (auto) 0.3 %; INR 1.5 (0.9-1.1); Immature Granulocytes # (auto) 0.02 K/uL (0.00-0.02); Immature Granulocytes % (auto) 0.3 %; Lymphocytes % (auto) 18.6 %; Monocytes # (auto) 0.78 K/uL (0.11-0.59); Monocytes % (auto) 10.4 %; Neutrophils # (auto) 5.27 K/uL (1.4-6.5); Neutrophils % (auto) 70.1 %; Platelet Count 89 K/uL (130-400)
--- NOTE | 2021-06-28 08:43 | CT Scan Report ---
CT head/brain wo con CLINICAL HISTORY: AMS . Confusion COMPARISON STUDY: 10/15/2020 CT DOSE: 767.83 mGy.cm TECHNIQUE: Standard CT of the Brain was performed without IV contrast. A dose lowering technique was utilized adhering to the principles of ALARA. FINDINGS: The study is again limited by motion artifact. Extraaxial space: There is no evidence for subdural hematoma. There are no extra-axial fluid collecti ons. Ventricles and cisterns: The ventricles are normal in size and configuration. There is no evidence f or midline shift or mass effect. Parenchyma: There is no subarachnoid or intraparenchymal hemorrhage. There is no evidence for an acu te infarct or cerebral edema. There is homogeneous attenuation of the brain parenchyma. There are no gross mass lesions. Osseous structures: There is no evidence for an acute fracture. The visualized paranasal sinuses are clear. The mastoid air cells are clear bilaterally. Soft tissues: There is no evidence for focal soft tissue swelling. IMPRESSION: No acute intracerebral pathology. ACT 112: Negative or not required by law. Electronically signed by: Lázaro Guevara M.D. 06/28/2021 8:42 AM
[2021-06-28 08:51] LABS: Albumin Globulin Ratio 0.8 (0.9-2); BUN Creatinine Ratio 10.5 (10-20); Bilirubin,Total 0.3 mg/dl (0.2-1); Calcium 8.4 mg/dl (8.5-10.1); Creatinine Clr Calc Pharmacy 92.6 ml/min; Est GFR (African American) 80.3 ml/min; Est GFR (Non-African American) 69.3 ml/min; Globulin 3.6 gm/dl (2.5-4.0); Magnesium 1.7 mg/dl (1.8-2.4); Potassium 4.2 mmol/L (3.5-5.1); Total Protein 6.6 gm/dl (6.4-8.2)
[2021-06-28] MEDS ORDERED: HEPARIN SOD (PORCINE) 1000 UNIT/ML ONE (09:48)
[2021-06-28] MEDS: INSULIN ASPART 100 UNITS/ML 3 ML PEN SC SCH ×4 (10:01→21:19)
[2021-06-28] MEDS: INSULIN GLARGINE SOLOSTAR 100 UNITS/ML 3 ML PEN SC SCH (10:02)
[2021-06-28] MEDS: HEPARIN SODIUM/DEXTROSE 25,000 UNITS/500 ML BAG IV SCH (10:02)
[2021-06-28] MEDS: LACTULOSE SYRUP 20 GM/30 ML UDC PO SCH ×4 (10:06→21:02)
[2021-06-28] MEDS: POTASSIUM CHLORIDE CRTAB 20 MEQ TABCR PO SCH (10:07)
[2021-06-28] MEDS: TOPIRAMATE 100 MG TAB PO SCH ×2 (10:08→21:02)
[2021-06-28] MEDS: MULTIVITAMIN TAB PO SCH (10:09)
[2021-06-28] MEDS: FINASTERIDE 5 MG TAB PO SCH (10:09)
[2021-06-28] MEDS: DOCUSATE SODIUM 100 MG CAP PO SCH ×2 (10:09→21:01)
[2021-06-28] MEDS: PHENYTOIN SODIUM ER 100 MG CAP PO SCH ×2 (10:09→21:00)
[2021-06-28] MEDS: allopurinoL 300 MG TAB PO SCH (10:10)
[2021-06-28] MEDS: ATORVASTATIN 40 MG TAB PO SCH (10:10)
[2021-06-28] MEDS: DIVALPROEX DELAY RELEASE 500 MG TAB PO SCH ×3 (10:11→21:01)
[2021-06-28] MEDS: ACETAMINOPHEN 325 MG TAB PO PRN ×2 (14:49→23:16)
[2021-06-28] MEDS: WARFARIN SOD 5 MG TAB PO SCH (15:56)
--- NOTE | 2021-06-28 16:39 | Communication Note ---
Date of Service: June 28, 2021 Patient seen and examined Patient is drowsy but arousable, oriented to person and place only, abd distended but soft, b/l SHAAN, mild tremors on outstretched arms Continue lactulose to ensure 3-4BM per day F/u cultures. Continue tamiflu Agree with other plans as detailed in H&P by Dr Joe this morning
[2021-06-28 17:00] LABS: Partial Thromboplastin Ratio 2.4
[2021-06-28 19:49] LABS: Appearance Urine Clear (Clear); Bacteria Urine Automated Negative (Negative); Bilirubin Urine Negative (Negative); Blood Urine Negative (Negative); Color Urine Dark Yellow; Glucose Urine UA Trace (Negative); Ketones Urine Trace (Negative); Leukocyte Esterase Urine Negative (Negative); Nitrite Urine Negative (Negative); Protein Urine 1+ (Negative); RBC Urine Automated 0-4 /hpf (0-4); Specific Gravity Urine 1.035 (1.000-1.030); Urobilinogen Urine Negative (Negative); pH Urine 5.5 (4.5-7.5)
[2021-06-28] MEDS: TAMSULOSIN HCL 0.4 MG CAP PO SCH (21:02)
[2021-06-28] MEDS: OSELTAMIVIR PHOSPHATE 75 MG CAP PO SCH (21:03)
--- NOTE | 2021-06-29 06:22 | Electrocardiogram Report ---
Test Reason : Blood Pressure : / mmHG Vent. Rate : 117 BPM Atrial Rate : 117 BPM P-R Int : 152 ms QRS Dur : 090 ms QT Int : 326 ms P-R-T Axes : 040 047 012 degrees QTc Int : 454 ms Poor data quality, interpretation may be adversely affected Sinus tachycardia Otherwise normal ECG When compared with ECG of 14-OCT-2020 23:07, No significant change was found Confirmed by Ahsan Proctor ([id number]) on 06/29/2021 6:21:51 AM Referred By: REFERRED SELF Confirmed By:Ahsan Proctor
[2021-06-29 06:28] LABS: Hemoglobin 13.6 g/dL (14.0-18.0); Mean Corpuscular Hemoglobin 35.4 pg (25-34); Mean Corpuscular Volume 104.2 fL (80-100); RDW Coefficient of Variation 14.8 % (11.5-14.5); RDW Standard Deviation 56.7 fL (36.4-46.3); Red Blood Count 3.84 M/uL (4.7-6.1); White Blood Count 6.26 K/uL (4.8-10.8)
[2021-06-29 06:35] LABS: Partial Thromboplastin Ratio 3.5
[2021-06-29 06:43] LABS: Partial Thromboplastin Time 93.1 Seconds (21.0-31.0)
[2021-06-29 06:50] LABS: Mean Platelet Volume 10.3 fL (7.4-10.4); Platelet Count 81 K/uL (130-400)
[2021-06-29 06:58] LABS: Albumin Globulin Ratio 0.7 (0.9-2); Albumin Level 2.5 gm/dl (3.4-5.0); Bilirubin,Total 0.3 mg/dl (0.2-1); Calcium 7.9 mg/dl (8.5-10.1); Creatinine Clr Calc Pharmacy 99.7 ml/min; Est GFR (African American) 87.7 ml/min; Est GFR (Non-African American) 75.7 ml/min; Globulin 3.5 gm/dl (2.5-4.0); Potassium 2.8 mmol/L (3.5-5.1)
[2021-06-29] MEDS: HEPARIN SODIUM/DEXTROSE 25,000 UNITS/500 ML BAG IV SCH ×2 (08:00→18:34)
[2021-06-29] MEDS: INSULIN ASPART 100 UNITS/ML 3 ML PEN SC SCH ×4 (08:47→21:42)
[2021-06-29] MEDS: INSULIN GLARGINE SOLOSTAR 100 UNITS/ML 3 ML PEN SC SCH (08:49)
[2021-06-29] MEDS: POTASSIUM CHLORIDE CRTAB 20 MEQ TABCR PO SCH (08:52)
[2021-06-29] MEDS: PHENYTOIN SODIUM ER 100 MG CAP PO SCH ×2 (08:53→20:16)
[2021-06-29] MEDS: OSELTAMIVIR PHOSPHATE 75 MG CAP PO SCH ×2 (08:55→20:15)
[2021-06-29] MEDS: MULTIVITAMIN TAB PO SCH (08:55)
[2021-06-29] MEDS: DIVALPROEX DELAY RELEASE 500 MG TAB PO SCH ×3 (08:56→20:16)
[2021-06-29] MEDS: FINASTERIDE 5 MG TAB PO SCH (08:57)
[2021-06-29] MEDS: ATORVASTATIN 40 MG TAB PO SCH (08:57)
[2021-06-29] MEDS: allopurinoL 300 MG TAB PO SCH (08:59)
[2021-06-29] MEDS: TOPIRAMATE 100 MG TAB PO SCH ×2 (09:00→20:16)
[2021-06-29] MEDS ORDERED: FUROSEMIDE INJ 20 MG/2 ML VIAL IV SCH (09:00)
[2021-06-29] MEDS: DOCUSATE SODIUM 100 MG CAP PO SCH ×2 (09:02→20:15)
[2021-06-29] MEDS: LACTULOSE SYRUP 20 GM/30 ML UDC PO SCH ×4 (09:06→20:19)
[2021-06-29] MEDS: ACETAMINOPHEN 325 MG TAB PO PRN ×2 (10:44→21:49)
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
[2021-06-29 16:28] LABS: Partial Thromboplastin Ratio 2.3; Prothrombin Time 18.8 Seconds (9.0-12.0)
[2021-06-29 16:34] LABS: Partial Thromboplastin Time 61.4 Seconds (21.0-31.0)
[2021-06-29] MEDS: LIDOCAINE 5% 1 PATCH TD SCH (18:03)
[2021-06-29] MEDS: WARFARIN SOD 5 MG TAB PO SCH (18:33)
[2021-06-29] MEDS: TAMSULOSIN HCL 0.4 MG CAP PO SCH (20:16)
[2021-06-29] MEDS: POTASSIUM ACETATE/NSS 10 MEQ/105 ML BAG IV SCH ×3 (20:25→21:56)
[2021-06-29] MEDS ORDERED: POTASSIUM CHLORIDE CRTAB 20 MEQ TABCR PO STA (21:37)
[2021-06-30 07:54] LABS: INR 2.4 (0.9-1.1); Prothrombin Time 22.3 Seconds (9.0-12.0)
[2021-06-30 07:58] LABS: Hematocrit (blood only) 40.3 % (42-52); Hemoglobin 13.7 g/dL (14.0-18.0); Mean Corpuscular Hemoglobin 34.8 pg (25-34); Mean Corpuscular Volume 102.3 fL (80-100); RDW Coefficient of Variation 14.4 % (11.5-14.5); RDW Standard Deviation 54.1 fL (36.4-46.3); Red Blood Count 3.94 M/uL (4.7-6.1)
[2021-06-30 07:59] LABS: Mean Platelet Volume 10.5 fL (7.4-10.4); Platelet Count 77 K/uL (130-400)
[2021-06-30] MEDS: TOPIRAMATE 100 MG TAB PO SCH ×2 (08:25→21:46)
[2021-06-30] MEDS: PHENYTOIN SODIUM ER 100 MG CAP PO SCH ×2 (08:25→21:46)
[2021-06-30] MEDS: ATORVASTATIN 40 MG TAB PO SCH (08:25)
[2021-06-30] MEDS: allopurinoL 300 MG TAB PO SCH (08:25)
[2021-06-30] MEDS: DIVALPROEX DELAY RELEASE 500 MG TAB PO SCH ×3 (08:25→21:45)
[2021-06-30] MEDS: MULTIVITAMIN TAB PO SCH (08:25)
[2021-06-30] MEDS: DOCUSATE SODIUM 100 MG CAP PO SCH ×2 (08:25→21:09)
[2021-06-30] MEDS: FINASTERIDE 5 MG TAB PO SCH (08:26)
[2021-06-30] MEDS: POTASSIUM CHLORIDE CRTAB 20 MEQ TABCR PO SCH (08:26)
[2021-06-30] MEDS: LACTULOSE SYRUP 20 GM/30 ML UDC PO SCH ×4 (08:27→21:09)
[2021-06-30] MEDS: OSELTAMIVIR PHOSPHATE 75 MG CAP PO SCH ×2 (08:27→21:44)
[2021-06-30] MEDS: LIDOCAINE 5% 1 PATCH TD SCH (08:28)
[2021-06-30] MEDS: INSULIN ASPART 100 UNITS/ML 3 ML PEN SC SCH ×4 (08:29→21:09)
[2021-06-30 08:32] LABS: Albumin Globulin Ratio 0.8 (0.9-2); Albumin Level 2.6 gm/dl (3.4-5.0); BUN Creatinine Ratio 11.6 (10-20); Bilirubin,Total 0.3 mg/dl (0.2-1); Calcium 7.5 mg/dl (8.5-10.1); Creatinine Clr Calc Pharmacy 109.8 ml/min; Est GFR (Non-African American) 85.4 ml/min; Globulin 3.4 gm/dl (2.5-4.0); Potassium 3.3 mmol/L (3.5-5.1)
[2021-06-30] MEDS ORDERED: POTASSIUM CITRATE 10 MEQ TAB PO ONE (08:53)
[2021-06-30] MEDS: INSULIN GLARGINE SOLOSTAR 100 UNITS/ML 3 ML PEN SC SCH (09:38)
[2021-06-30] MEDS: POTASSIUM ACETATE/NSS 10 MEQ/105 ML BAG IV SCH ×2 (09:38→16:08)
[2021-06-30] MEDS: ACETAMINOPHEN 325 MG TAB PO PRN (09:59)
--- NOTE | 2021-06-30 10:34 | Hospitalist Progress Note ---
Date of Service June 30, 2021 Assessment & Plan (1) Acute hepatic encephalopathy: Plan: Hx chronic liver disease as per records on lactulose Rx. Possible poor adherence based on my conversation with patient Possible precipitants include viral infection (influenza) and electrolyte abnormalities Continue lactulose 30, reduce to TID for now Discussed with RN that goal is 3-4 BM/day after which subsequent lactulose for the day should be held RN reported he has been having good BM since overnight Mental status appears improved Continue tamiflu Abd CT reports age indeterminate mild compression fracture of superior endplate L3 PT recommends SNF Hypokalemic K 3.3 likely due to BM and diuretics Low bicarb due to GI losses Replete and monitor Left LE DVT INR 2.4 Heparin had been discontinued Continue warfarin and monitor Seizure disorder Controlled on current regimen DM2 On oral medications, well-controlled as of recent hemoglobin A1c of 6.11 May 2021 Hold home oral regimen and continue insulin per protocol Chronic thrombocytopenia Secondary to chronic liver disease History of learning disability as per records Possible functional disability Full code Patient sister requesting updates from providers. Lo Esparza, contact #[phone]. Admission and Anticipated Discharge Date Admission Date: June 28, 2021 Subjective 60-year-old man with history of seizure disorder, hyperlipidemia, gout, DM2 on oral medications, history of DVT on oral anticoagulation, chronic anemia (baseline hemoglobin 11-12), chronic thrombocytopenia, history hepatic encephalopathy on lactulose prophylaxis, BPH, history of learning disability as per records, hx COVID-19 illness who presented with feeling unwell and back pain. Found to have hepatic encephalopathy, influenza and left DVT Patient seen and examined today. Patient reports back pain is improved with lidocaine patch Still reports some pain in legs. Denies any chest pain, shortness of breath. Patient reports occasional cough, chronic leg swelling Denies any dysuria, frequency, urgency Denies nausea, vomiting, abdominal pain Having regular BM per RN Physical Exam Constitutional: + well hydrated and + obese; no acute distress Eyes: PERRL, conjunctivae normal, anicteric sclerae ENMT: external ear and nose normal, oropharynx normal Respiratory: normal respiratory effort, lungs clear to auscultation Gastrointestinal (Abdomen): normal bowel sounds, soft, nontender, no hepatosplenomegaly Musculoskeletal: B/l SHAAN Neurologic: PERRL, EOMI, accommodation nl, no face palsy, no dysarthria No asterixis Psychiatric: A+Ox3, euthymic affect Results & Data Results & Data ([facility]) Vital Signs (Past 12 Hours) Vital Signs Temp Pulse Resp BP Pulse Ox 06/30/21 08:00 37.3 C 99 H 18 160/82 H 95 06/30/21 02:52 36.8 C 91 H 18 144/74 H 95 06/29/21 23:00 36.9 C 93 H 18 143/83 H 96 Laboratory Results Abnormal lab results 06/29/21 06/29/21 06/29/21 Range/Units 11:54 15:49 17:01 RBC (4.7-6.1) M/uL Hgb (14.0-18.0) g/dL Hct (42-52) % MCV (80-100) fL MCH (25-34) pg RDW Std Deviation (36.4-46.3) fL Plt Count (130-400) K/uL MPV (7.4-10.4) fL PT 18.8 H (9.0-12.0) Seconds INR 2.0 H (0.9-1.1) APTT 61.4 H* (21.0-31.0) Seconds Potassium (3.5-5.1) mmol/L Chloride (98-107) mmol/L Carbon Dioxide (21-32) mmol/L Glucose (70-99) mg/dl POC Glucose 195 H 195 H (70-99) mg/dl Calcium (8.5-10.1) mg/dl Total Protein (6.4-8.2) gm/dl Albumin (3.4-5.0) gm/dl Albumin/Globulin Ratio (0.9-2) 06/29/21 06/30/21 06/30/21 Range/Units 20:15 06:56 06:56 RBC (4.7-6.1) M/uL Hgb (14.0-18.0) g/dL Hct (42-52) % MCV (80-100) fL MCH (25-34) pg RDW Std Deviation (36.4-46.3) fL Plt Count (130-400) K/uL MPV (7.4-10.4) fL PT 22.3 H (9.0-12.0) Seconds INR 2.4 H (0.9-1.1) APTT (21.0-31.0) Seconds Potassium 3.3 L D (3.5-5.1) mmol/L Chloride 118 H (98-107) mmol/L Carbon Dioxide 16 L (21-32) mmol/L Glucose 148 H (70-99) mg/dl POC Glucose 167 H (70-99) mg/dl Calcium 7.5 L (8.5-10.1) mg/dl Total Protein 6.0 L (6.4-8.2) gm/dl Albumin 2.6 L (3.4-5.0) gm/dl Albumin/Globulin Ratio 0.8 L (0.9-2) 06/30/21 06/30/21 Range/Units 06:56 07:56 RBC 3.94 L (4.7-6.1) M/uL Hgb 13.7 L (14.0-18.0) g/dL Hct 40.3 L (42-52) % MCV 102.3 H (80-100) fL MCH 34.8 H (25-34) pg RDW Std Deviation 54.1 H (36.4-46.3) fL Plt Count 77 L (130-400) K/uL MPV 10.5 H (7.4-10.4) fL PT (9.0-12.0) Seconds INR (0.9-1.1) APTT (21.0-31.0) Seconds Potassium (3.5-5.1) mmol/L Chloride (98-107) mmol/L Carbon Dioxide (21-32) mmol/L Glucose (70-99) mg/dl POC Glucose 160 H (70-99) mg/dl Calcium (8.5-10.1) mg/dl Total Protein (6.4-8.2) gm/dl Albumin (3.4-5.0) gm/dl Albumin/Globulin Ratio (0.9-2)
[2021-06-30] MEDS: FUROSEMIDE 20 MG TAB PO SCH (11:56)
[2021-06-30] MEDS: WARFARIN SOD 5 MG TAB PO SCH (16:30)
[2021-06-30] MEDS: TAMSULOSIN HCL 0.4 MG CAP PO SCH (21:46)
[2021-07-01] MEDS: ACETAMINOPHEN 325 MG TAB PO PRN ×2 (02:45→19:36)
[2021-07-01] MEDS ORDERED: MoRPHine SULFATE 2 MG/ML CARP IV STA (06:18)
[2021-07-01 08:04] LABS: INR 2.9 (0.9-1.1); Prothrombin Time 26.8 Seconds (9.0-12.0)
[2021-07-01 08:14] LABS: BUN Creatinine Ratio 15.8 (10-20); Calcium 7.3 mg/dl (8.5-10.1); Creatinine Clr Calc Pharmacy 125.9 ml/min; Est GFR (African American) 109.8 ml/min; Est GFR (Non-African American) 94.8 ml/min; Magnesium 1.9 mg/dl (1.8-2.4); Potassium 3.6 mmol/L (3.5-5.1)
[2021-07-01 08:15] LABS: Phosphorus 2.2 mg/dl (2.5-4.9)
[2021-07-01] MEDS: INSULIN ASPART 100 UNITS/ML 3 ML PEN SC SCH ×4 (08:31→22:25)
[2021-07-01] MEDS: MULTIVITAMIN TAB PO SCH (08:33)
[2021-07-01] MEDS: LIDOCAINE 5% 1 PATCH TD SCH (08:33)
[2021-07-01] MEDS: TOPIRAMATE 100 MG TAB PO SCH ×2 (08:35→21:15)
[2021-07-01] MEDS: PHENYTOIN SODIUM ER 100 MG CAP PO SCH ×2 (08:35→21:15)
[2021-07-01] MEDS: allopurinoL 300 MG TAB PO SCH (08:36)
[2021-07-01] MEDS: FUROSEMIDE 20 MG TAB PO SCH (08:37)
[2021-07-01] MEDS: ATORVASTATIN 40 MG TAB PO SCH (08:37)
[2021-07-01] MEDS: DIVALPROEX DELAY RELEASE 500 MG TAB PO SCH ×3 (08:37→21:11)
[2021-07-01] MEDS: FINASTERIDE 5 MG TAB PO SCH (08:37)
[2021-07-01] MEDS: DOCUSATE SODIUM 100 MG CAP PO SCH ×2 (08:37→21:11)
[2021-07-01] MEDS: LACTULOSE SYRUP 20 GM/30 ML UDC PO SCH ×4 (08:38→20:36)
[2021-07-01] MEDS: INSULIN GLARGINE SOLOSTAR 100 UNITS/ML 3 ML PEN SC SCH (08:38)
[2021-07-01] MEDS ORDERED: POT PHOSPHATE MONOBASIC W/ SOD TAB PO ONE (09:00)
[2021-07-01] MEDS: OSELTAMIVIR PHOSPHATE 75 MG CAP PO SCH ×2 (09:56→22:20)
[2021-07-01] MEDS: POTASSIUM CHLORIDE CRTAB 20 MEQ TABCR PO SCH (09:56)
--- NOTE | 2021-07-01 12:46 | Hospitalist Progress Note ---
Date of Service July 01, 2021 Assessment & Plan (1) Acute hepatic encephalopathy: Plan: Hx chronic liver disease as per records on lactulose Rx. Possible poor adherence based on my conversation with patient Possible precipitants include viral infection (influenza) and electrolyte abnormalities Continue lactulose RN aware that goal is 3-4 BM/day after which subsequent lactulose for the day should be held AMS resolved Continue tamiflu to complete treatment Abd CT reports age indeterminate mild compression fracture of superior endplate L3 PT recommends SNF K is 3.6 today Bicarb 18. Likely due to GI loss. Monitor Left LE DVT INR 2.9 Heparin had been discontinued Will hold warfarin today due to rate of increase of INR and monitor INR tomorrow Seizure disorder Controlled on current regimen DM2 On oral medications, well-controlled as of recent hemoglobin A1c of 6.11 May 2021 Hold home oral regimen and continue insulin per protocol Chronic thrombocytopenia Secondary to chronic liver disease History of learning disability as per records Possible functional disability Full code Patient sister requesting updates from providers. Lo Esparza, contact #[phone]. Admission and Anticipated Discharge Date Admission Date: June 28, 2021 Subjective 60-year-old man with history of seizure disorder, hyperlipidemia, gout, DM2 on oral medications, history of DVT on oral anticoagulation, chronic anemia (b aseline hemoglobin 11-12), chronic thrombocytopenia, history hepatic encephalopathy on lactulose prophylaxis, BPH, history of learning disability as per records, hx COVID-19 illness who presented with feeling unwell and back pain. Found to have hepatic encephalopathy, influenza and left DVT Patient seen and examined today. Patient reports back pain and leg pains are well controlled. Denies any chest pain, shortness of breath. Patient reports occasional cough, chronic leg swelling Denies any dysuria, frequency, urgency Denies nausea, vomiting, abdominal pain Having regular BM per RN Physical Exam Constitutional: + well hydrated and + obese; no acute distress Eyes: PERRL, conjunctivae normal, anicteric sclerae ENMT: external ear and nose normal, oropharynx normal Respiratory: normal respiratory effort, lungs clear to auscultation Cardiovascular: Rate/Rhythm: regular rate and regular rhythm S1 S2 Gastrointestinal (Abdomen): normal bowel sounds, soft, nontender, no hepatosplenomegaly Musculoskeletal: SHAAN Chronic stasis changes Neurologic: PERRL, EOMI, accommodation nl, no face palsy, no dysarthria Psychiatric: A+Ox3, euthymic affect Results & Data Results & Data ([facility]) Vital Signs (Past 12 Hours) Vital Signs Temp Pulse Pulse Resp BP Pulse Ox 07/01/21 11:57 36.9 C 90 16 113/68 97 07/01/21 11:36 83 07/01/21 07:50 36.8 C 79 16 115/69 94 07/01/21 03:44 36.8 C 85 18 119/73 95 Laboratory Results Abnormal lab results 06/30/21 06/30/21 07/01/21 Range/Units 17:20 20:52 07:24 PT 26.8 H (9.0-12.0) Seconds INR 2.9 H (0.9-1.1) Chloride (98-107) mmol/L Carbon Dioxide (21-32) mmol/L Glucose (70-99) mg/dl POC Glucose 246 H 117 H (70-99) mg/dl Calcium (8.5-10.1) mg/dl Phosphorus (2.5-4.9) mg/dl 07/01/21 07/01/21 07/01/21 Range/Units 07:24 07:39 11:30 PT (9.0-12.0) Seconds INR (0.9-1.1) Chloride 117 H (98-107) mmol/L Carbon Dioxide 18 L (21-32) mmol/L Glucose 151 H (70-99) mg/dl POC Glucose 136 H 174 H (70-99) mg/dl Calcium 7.3 L (8.5-10.1) mg/dl Phosphorus 2.2 L (2.5-4.9) mg/dl
[2021-07-01] MEDS: TAMSULOSIN HCL 0.4 MG CAP PO SCH (21:15)
[2021-07-02 08:26] LABS: INR 2.2 (0.9-1.1); Prothrombin Time 21.1 Seconds (9.0-12.0)
[2021-07-02 08:44] LABS: BUN Creatinine Ratio 13.9 (10-20); Calcium 7.7 mg/dl (8.5-10.1); Creatinine Clr Calc Pharmacy 112.2 ml/min; Est GFR (African American) 102.9 ml/min; Est GFR (Non-African American) 88.8 ml/min; Magnesium 1.9 mg/dl (1.8-2.4); Phosphorus 2.1 mg/dl (2.5-4.9); Potassium 3.4 mmol/L (3.5-5.1)
[2021-07-02] MEDS: INSULIN ASPART 100 UNITS/ML 3 ML PEN SC SCH ×4 (09:39→22:00)
[2021-07-02] MEDS: allopurinoL 300 MG TAB PO SCH (09:40)
[2021-07-02] MEDS: ATORVASTATIN 40 MG TAB PO SCH (09:41)
[2021-07-02] MEDS: DOCUSATE SODIUM 100 MG CAP PO SCH ×2 (09:42→20:12)
[2021-07-02] MEDS: DIVALPROEX DELAY RELEASE 500 MG TAB PO SCH ×3 (09:42→21:57)
[2021-07-02] MEDS: FINASTERIDE 5 MG TAB PO SCH (09:42)
[2021-07-02] MEDS: MULTIVITAMIN TAB PO SCH (09:43)
[2021-07-02] MEDS: FUROSEMIDE 20 MG TAB PO SCH (09:43)
[2021-07-02] MEDS: INSULIN GLARGINE SOLOSTAR 100 UNITS/ML 3 ML PEN SC SCH (09:43)
[2021-07-02] MEDS: LIDOCAINE 5% 1 PATCH TD SCH (09:43)
[2021-07-02] MEDS: POTASSIUM CHLORIDE CRTAB 20 MEQ TABCR PO SCH (09:44)
[2021-07-02] MEDS: OSELTAMIVIR PHOSPHATE 75 MG CAP PO SCH ×2 (09:44→21:58)
[2021-07-02] MEDS: TOPIRAMATE 100 MG TAB PO SCH ×2 (09:45→22:00)
[2021-07-02] MEDS: PHENYTOIN SODIUM ER 100 MG CAP PO SCH ×2 (09:45→21:58)
[2021-07-02] MEDS: LACTULOSE SYRUP 20 GM/30 ML UDC PO SCH (09:54)
[2021-07-02] MEDS: GABAPENTIN 300 MG CAP PO SCH (11:44)
[2021-07-02] MEDS: POT PHOSPHATE MONOBASIC W/ SOD TAB PO SCH ×3 (11:48→21:59)
[2021-07-02] MEDS: LACTULOSE SYRUP 30 GM/45 ML UDP PO SCH ×2 (13:08→20:13)
--- NOTE | 2021-07-02 15:41 | Hospitalist Progress Note ---
Date of Service July 02, 2021 Assessment & Plan (1) Acute hepatic encephalopathy: Plan: Hx chronic liver disease as per records on lactulose Rx. Possible poor adherence based on my conversation with patient Possible precipitants include viral infection (influenza) and electrolyte abnormalities Continue lactulose, reduced to TID to maintain 3 BM per day AMS resolved Continue tamiflu to complete treatment Abd CT reports age indeterminate mild compression fracture of superior endplate L3 PT recommends SNF K is 3.4 today Bicarb 17 Phos 2.2 Replete and monitor Left LE DVT INR 2.2 Heparin had been discontinued Continue warfarin Seizure disorder Controlled on current regimen DM2 On oral medications, well-controlled as of recent hemoglobin A1c of 6.11 May 2021 Hold home oral regimen and continue insulin per protocol Chronic thrombocytopenia Secondary to chronic liver disease History of learning disability as per records Possible functional disability Full code Patient sister requesting updates from providers. Lo Esparza, contact #[phone]. Admission and Anticipated Discharge Date Admission Date: June 28, 2021 Subjective 60-year-old man with history of seizure disorder, hyperlipidemia, gout, DM2 on oral medications, history of DVT on oral anticoagulation, chronic anemia (baseline hemoglobin 11-12), chronic thrombocytopenia, history hepatic encephalopathy on lactulose prophylaxis, BPH, history of learning disability as per records, hx COVID-19 illness who presented with feeling unwell and back pain. Found to have hepatic encephalopathy, influenza and left DVT Patient seen and examined today. Patient reports back pain is controlled Reports some paraesthesia in feet (described as burning) Denies any chest pain, shortness of breath. Patient reports occasional cough Has chronic leg swelling Denies any dysuria, frequency, urgency Denies nausea, vomiting, abdominal pain Physical Exam Constitutional: + well hydrated and + obese; no acute distress Eyes: PERRL, conjunctivae normal, anicteric sclerae ENMT: external ear and nose normal, oropharynx normal Respiratory: normal respiratory effort, lungs clear to auscultation Cardiovascular: Rate/Rhythm: regular rate and regular rhythm S1 S2 Gastrointestinal (Abdomen): normal bowel sounds, soft, nontender, no hepatosplenomegaly Musculoskeletal: leg edema, chronic stasis changes Neurologic: PERRL, EOMI, accommodation nl, no face palsy, no dysarthria Psychiatric: A+Ox3, euthymic affect Results & Data Results & Data ([facility]) Vital Signs (Past 12 Hours) Vital Signs Temp Pulse Pulse Resp BP BP Pulse Ox 07/02/21 15:33 93 H 07/02/21 15:21 36.4 C L 90 18 111/70 95 07/02/21 12:18 36.6 C 89 16 121/68 95 07/02/21 11:15 78 07/02/21 08:12 36.9 C 82 16 116/69 97 Laboratory Results Abnormal lab results 07/01/21 07/01/21 07/02/21 Range/Units 16:31 20:22 07:02 PT 21.1 H (9.0-12.0) Seconds INR 2.2 H (0.9-1.1) Potassium (3.5-5.1) mmol/L Chloride (98-107) mmol/L Carbon Dioxide (21-32) mmol/L Glucose (70-99) mg/dl POC Glucose 155 H 139 H (70-99) mg/dl Calcium (8.5-10.1) mg/dl Phosphorus (2.5-4.9) mg/dl 07/02/21 07/02/21 07/02/21 Range/Units 07:02 07:54 11:34 PT (9.0-12.0) Seconds INR (0.9-1.1) Potassium 3.4 L (3.5-5.1) mmol/L Chloride 118 H (98-107) mmol/L Carbon Dioxide 17 L (21-32) mmol/L Glucose 154 H (70-99) mg/dl POC Glucose 163 H 188 H (70-99) mg/dl Calcium 7.7 L (8.5-10.1) mg/dl Phosphorus 2.1 L (2.5-4.9) mg/dl
[2021-07-02] MEDS: WARFARIN SOD 5 MG TAB PO SCH (16:13)
[2021-07-02] MEDS: TAMSULOSIN HCL 0.4 MG CAP PO SCH (22:00)
[2021-07-03] MEDS: ACETAMINOPHEN 325 MG TAB PO PRN (02:34)
[2021-07-03] MEDS ORDERED: oxyCODONE HCL IR 5 MG TAB (IMMEDIATE RELEASE) PO STA (05:28)
[2021-07-03] MEDS ORDERED: CYCLOBENZAPRINE HCL 10 MG TAB PO PRN (05:47)
[2021-07-03] MEDS: INSULIN ASPART 100 UNITS/ML 3 ML PEN SC SCH ×2 (08:53→12:22)
[2021-07-03] MEDS: MULTIVITAMIN TAB PO SCH (08:54)
[2021-07-03] MEDS: FINASTERIDE 5 MG TAB PO SCH (08:54)
[2021-07-03] MEDS: GABAPENTIN 300 MG CAP PO SCH (08:54)
[2021-07-03] MEDS: FUROSEMIDE 20 MG TAB PO SCH (08:54)
[2021-07-03] MEDS: ATORVASTATIN 40 MG TAB PO SCH (08:55)
[2021-07-03] MEDS: PHENYTOIN SODIUM ER 100 MG CAP PO SCH (08:55)
[2021-07-03] MEDS: TOPIRAMATE 100 MG TAB PO SCH (08:55)
[2021-07-03] MEDS: allopurinoL 300 MG TAB PO SCH (08:55)
[2021-07-03] MEDS: POT PHOSPHATE MONOBASIC W/ SOD TAB PO SCH (08:55)
[2021-07-03] MEDS: OSELTAMIVIR PHOSPHATE 75 MG CAP PO SCH (08:57)
[2021-07-03] MEDS: DIVALPROEX DELAY RELEASE 500 MG TAB PO SCH ×2 (09:00→15:27)
[2021-07-03] MEDS: INSULIN GLARGINE SOLOSTAR 100 UNITS/ML 3 ML PEN SC SCH (09:01)
[2021-07-03] MEDS: DOCUSATE SODIUM 100 MG CAP PO SCH (09:01)
[2021-07-03] MEDS: LIDOCAINE 5% 1 PATCH TD SCH (09:01)
[2021-07-03] MEDS: LACTULOSE SYRUP 30 GM/45 ML UDP PO SCH ×2 (09:02→14:02)
[2021-07-03] MEDS: POTASSIUM CHLORIDE CRTAB 20 MEQ TABCR PO SCH (09:07)
[2021-07-03 10:02] LABS: BUN Creatinine Ratio 14.1 (10-20); Calcium 7.9 mg/dl (8.5-10.1); Creatinine Clr Calc Pharmacy 92.7 ml/min; Est GFR (Non-African American) 70.8 ml/min; Phosphorus 2.2 mg/dl (2.5-4.9)
[2021-07-03 11:08] LABS: INR 2.1 (0.9-1.1); Prothrombin Time 20.2 Seconds (9.0-12.0)
[2021-07-03 11:18] LABS: Magnesium 1.9 mg/dl (1.8-2.4)
--- NOTE | 2021-07-03 13:04 | Hospitalist Progress Note ---
Date of Service July 03, 2021 Assessment & Plan Admission and Anticipated Discharge Date Admission Date: June 28, 2021 Results & Data Results & Data ([facility]) Vital Signs (Past 12 Hours) Vital Signs Temp Pulse Pulse Resp BP BP Pulse Ox 07/03/21 11:19 76 07/03/21 11:11 36.6 C 84 20 122/74 96 07/03/21 07:30 36.6 C 74 20 124/70 97 07/03/21 03:07 37 C 83 18 126/75 94
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
[2021-07-03] MEDS: WARFARIN SOD 5 MG TAB PO SCH (15:27)
--- NOTE | 2021-07-12 13:11 | Coding Query ---
To promote full compliance with coding requirements relating to patient care, provider participation is requested in all cases of administration assistant uncertainty. Please assist us with the question(s) below: Coding Question(s): The diagnosis(es) below was documented in the ER H&P, then subsequently fell off all further documentation. Please indicate if it is still a possible diagnosis or ruled out. Physician's Response(s): PULMONARY EDEMA (documented on ER H&P) ( ) Diagnosed and POA. Please specify below, in your clinical opinion: ( ) likely Acute Pulmonary Edema ( ) likely Chronic or Unknown Pulmonary Edema ( ) Other: Please Specify ( ) Diagnosed and not POA. Please specify below, in your clinical opinion: ( ) likely Acute Pulmonary Edema ( ) likely Chronic or Unknown Pulmonary Edema ( ) Other: Please Specify ( ) Ruled out ( x) Other (please specify) Did not appreciate pulm edema during my evaluation MTDD
== END 2021-07-03 16:45 | DRG 865 ==
LOC: ED 18:43 → EDINP 06-28 05:23 → 2W 06-29 15:16

== ENCOUNTER 2022-07-18 23:53 | Inpatient (IN) ==
[2022-07-19] MEDS ORDERED: LACTULOSE SYRUP 20 GM/30 ML UDC PO STA (00:30)
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
[2022-07-19 01:55] LABS: Basophils # (auto) 0.04 K/uL (0-0.2); Basophils % (auto) 0.5 %; Eosinophils # (auto) 0.34 K/uL (0-0.50); Eosinophils % (auto) 4.6 %; Hematocrit (blood only) 44.6 % (40.1-51.0); Immature Granulocytes # (auto) 0.08 K/uL (0.00-0.02); Immature Granulocytes % (auto) 1.1 %; Lymphocytes # (auto) 3.23 K/uL (1.2-3.4); Lymphocytes % (auto) 43.2 %; Mean Corpuscular Hemoglobin 35.2 pg (25.0-34.0); Mean Corpuscular Hgb Conc 35.9 g/dL (32.0-36.0); Mean Corpuscular Volume 98.2 fL (80.0-100.0); Mean Platelet Volume 9.7 fL (9.4-12.4); Monocytes # (auto) 0.69 K/uL (0.24-0.82); Monocytes % (auto) 9.2 %; Neutrophils # (auto) 3.09 K/uL (1.4-6.5); Neutrophils % (auto) 41.4 %; Platelet Count 107 K/uL (130-400); RDW Coefficient of Variation 14.1 % (11.5-14.5); RDW Standard Deviation 50.4 fL (36.4-46.3); Red Blood Count 4.54 M/uL (4.63-6.08); White Blood Count 7.47 K/ul (4.8-10.8)
[2022-07-19 02:08] LABS: INR 2.2 (0.9-1.1); Prothrombin Time 22.3 Seconds (9.0-12.0)
[2022-07-19 02:19] LABS: Est GFR (African American) 92.4 ml/min; Potassium 4.1 mmol/L (3.5-5.1)
[2022-07-19 02:20] LABS: Albumin Globulin Ratio 1.4 (0.9-2); Albumin Level 3.8 gm/dl (3.4-5.0); Bilirubin,Total 0.3 mg/dl (0.2-1.0); Creatinine Clr Calc Pharmacy 104.2 ml/min; Est GFR (Non-African American) 79.7 ml/min; Globulin 2.7 gm/dl (2.5-4.0); Magnesium 1.8 mg/dl (1.7-2.4); Total Protein 6.5 gm/dl (6.0-8.3)
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
[2022-07-19] MEDS ORDERED: SODIUM CHLORIDE 0.9% 1000ML 1,000 ML IV SCH (05:42)
[2022-07-19] MEDS ORDERED: LORATADINE 10 MG TAB PO PRN (05:42)
[2022-07-19] MEDS ORDERED: LIDOCAINE 5% OINT 30 GM TUBE TOP PRN (05:42)
[2022-07-19] MEDS ORDERED: NITROGLYCERIN SL 0.4 MG/TAB TAB SL PRN (05:42)
[2022-07-19] MEDS: LACTULOSE 200GM/700ML WTR ENEMA PR SCH ×3 (06:42→21:38)
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
[2022-07-19] MEDS: PHENYTOIN SODIUM ER 100 MG CAP PO SCH ×2 (09:32→21:31)
[2022-07-19] MEDS: POTASSIUM CHLORIDE CRTAB 20 MEQ TABCR PO SCH (09:32)
[2022-07-19] MEDS: CALCIUM 600MG + VIT D 400 IU TAB PO SCH ×2 (09:32→21:35)
[2022-07-19] MEDS: CHOLECALCIFEROL 1,000 UNITS 25 MCG TAB PO SCH (09:32)
[2022-07-19] MEDS: GABAPENTIN 100 MG CAP PO SCH ×2 (09:32→21:32)
[2022-07-19] MEDS: allopurinoL 300 MG TAB PO SCH (09:32)
[2022-07-19] MEDS: FUROSEMIDE 20 MG TAB PO SCH (09:33)
[2022-07-19] MEDS: FINASTERIDE 5 MG TAB PO SCH (09:33)
[2022-07-19] MEDS: TOPIRAMATE 100 MG TAB PO SCH ×2 (09:33→21:34)
[2022-07-19] MEDS: ATORVASTATIN 40 MG TAB PO SCH (09:33)
[2022-07-19] MEDS: MULTIVITAMIN TAB PO SCH (09:33)
[2022-07-19] MEDS: DIVALPROEX DELAY RELEASE 500 MG TAB PO SCH ×3 (09:34→21:35)
--- NOTE | 2022-07-19 09:47 | Ultrasound Report ---
US liver HISTORY: 61 years-old Male elevated ammonia levels COMPARISON: CT 06/28/2021 TECHNIQUE: Multiple real-time sonographic images of the abdominal right upper quadrant were obtained assessing grayscale appearance and color flow FINDINGS: The pancreas is partially obscured by bowel gas. The liver measures up to 21 cm in length and demonst rates questioned increased echogenicity. No hepatic mass or marginal nodularity identified. Cholecyst ectomy. Normal common bile duct, 5 mm. Prior right nephrectomy. IMPRESSION: 1. Prior cholecystectomy and right nephrectomy. 2. There is questioned increased echogenicity of the hepatic parenchyma possibly representing hepatic steatosis. ACT 112: Negative or not required by law. The above report was generated using voice recognition software. It may contain grammatical, syntax o r spelling errors. Electronically signed by: Chito Chapman M.D. 07/19/2022 9:46 AM
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
[2022-07-19 10:04] LABS: Basophils # (auto) 0.04 K/uL (0-0.2); Basophils % (auto) 0.5 %; Eosinophils # (auto) 0.39 K/uL (0-0.50); Eosinophils % (auto) 5.1 %; Hematocrit (blood only) 41.6 % (40.1-51.0); Hemoglobin 14.9 g/dl (14.0-18.0); Immature Granulocytes # (auto) 0.07 K/uL (0.00-0.02); Immature Granulocytes % (auto) 0.9 %; Lymphocytes # (auto) 3.25 K/uL (1.2-3.4); Lymphocytes % (auto) 42.2 %; Mean Corpuscular Hemoglobin 35.1 pg (25.0-34.0); Mean Corpuscular Hgb Conc 35.8 g/dL (32.0-36.0); Mean Corpuscular Volume 98.1 fL (80.0-100.0); Mean Platelet Volume 9.7 fL (9.4-12.4); Monocytes # (auto) 0.73 K/uL (0.24-0.82); Monocytes % (auto) 9.5 %; Neutrophils # (auto) 3.22 K/uL (1.4-6.5); Neutrophils % (auto) 41.8 %; Platelet Count 105 K/uL (130-400); RDW Coefficient of Variation 14.4 % (11.5-14.5); RDW Standard Deviation 52.1 fL (36.4-46.3); Red Blood Count 4.24 M/uL (4.63-6.08)
[2022-07-19 10:12] LABS: Albumin Level 3.6 gm/dl (3.4-5.0); BUN Creatinine Ratio 20.4 (10-20); Bilirubin Direct 0.1 mg/dl (0-0.2); Bilirubin,Total 0.3 mg/dl (0.2-1.0); Creatinine Clr Calc Pharmacy 106.4 ml/min; Est GFR (African American) 94.7 ml/min; Est GFR (Non-African American) 81.7 ml/min; Magnesium 1.7 mg/dl (1.7-2.4); Potassium 4.1 mmol/L (3.5-5.1); Total Protein 5.8 gm/dl (6.0-8.3)
[2022-07-19] MEDS ORDERED: DEXTROSE 50% 50 ML SYRINGE IV PRN (10:55)
[2022-07-19] MEDS ORDERED: GLUCOSE 10 TAB/TUBE PO PRN (10:55)
[2022-07-19] MEDS ORDERED: GLUCAGON FOR INJ 1 MG VIAL SQ PRN (10:55)
[2022-07-19] MEDS ORDERED: GLUCOSE 40% GEL 15 GM TUBE PO PRN (10:55)
[2022-07-19] MEDS ORDERED: CARBOHYDRATES FOR HYPOGLYCEMIA PO PRN (10:55)
[2022-07-19] MEDS: LANTUS PER UNIT CHARGE SQ SCH ×2 (11:07→21:37)
[2022-07-19 11:57] LABS: Estimated Average Glucose 232 mg/dl; Hemoglobin A1C 9.7 % (4.5-5.6)
[2022-07-19] MEDS: INSULIN ASPART PER UNIT SC SCH ×3 (12:25→21:36)
--- NOTE | 2022-07-19 14:56 | Hospitalist Progress Note ---
Date of Service July 19, 2022 Assessment & Plan (1) Serum ammonia increased: Plan 61-year-old male with PMH of T2DM, hepatic encephalopathy, HLD, venous insufficiency, solitary kidney, BPH, recurrent UTIs, gout arthropathy, epilepsy on Depakote, DVT on Coumadin presented to our ED 07/19 with elevated ammonia levels. Of note, patient is having tremors and some ambulatory dysfunction going on for a few months now and hence he has been living with his sister. He used to ambulate with a cane, now he is ambulating with a walker. His outpatient labs showed ammonia level of 137, so he was advised to come to the ED for evaluation. Patient's sister states that whenever his Depakote is stopped, he gets bad seizures, so they continue even while his ammonia levels are elevated and they try to manage ammonia levels with lactulose. He is being managed for the following: Elevated ammonia level: Ambulatory dysfunction: Patient presents with ambulatory dysfunction and some tremors for last 3 months, outpatient ammonia level of 137. Admitting ammonia level of 121, follow-up ammonia level 97 Patient is on Depakote, per his sister patient gets bad seizure when Depakote is stopped. Patient is on lactulose at home, but still levels are high. Patient reports having multiple bowel movements per day. GI and neuro evaled, recommends to use L-carnitine if anticonvulsant switch can't be made. Pt is alert and oriented, will get PT/OT, [facility] to assist w/ dc planning. Will likely start on L-carnitine after d/w his sister. --> d/w pt's sister [place] in detail about the plan of care and recs of neuro and GI including possiblity of switching seizure meds or using L-carnitine. Family declined for both. Wanted to continue with the same as of now and wants to f/u w/ own neurology as OP. Pt might benefit from SNF/acute rehab, PT / OT to [facility] to assist w/ dc planning. History of seizure: Stable on his home regimen Dilantin, Depakote and Topamax. Patient and his sister reluctant to change his current antiseizure medication. Neurology evaluated, recommendation for either L-carnitine or Depakote switch to Lamotrigine or Vimpat. Same communicated to the family, not agreeable w/ any of the options. Wants to continue w/ same regimen. Other chronic medical conditions: BPH, HLD, gout, diabetes, DVT, thrombocytopenia --- continue with home meds as able. DVT prophylaxis: On Coumadin Full code Dispo: Pt's sister expresses some difficulty in his care at her home as both herself and her work and it is difficult to manage time. CM to assist w/ DC plan. Should be able to go [facility]. Admission and Anticipated Discharge Date Admission Date: July 19, 2022 Subjective Patient seen and examined at bedside as a follow-up of elevated ammonia level with history of seizure and Depakote. Patient was lying in bed, on room air, NAD, reports multiple loose bowel movements while on lactulose, reports eating okay, per RN no new acute event overnight, patient denies any headache/dizziness/chest pain/palpitations/belly pain/other review of symptoms. Physical Exam Physical Exam: GENERAL: Alert and oriented x3. NAD, on RA. HEENT: No pallor, no icterus. Pupils equal, round and reactive to light. Oral mucosa moist. NECK: No JVD, no neck masses. HEART: S1 and S2 heard. Regular rate and rhythm. No murmur, no gallop. RESPIRATORY SYSTEM: Normal AP diameter. No accessory muscle use. No wheezing, no crackles. ABDOMEN: Soft, bowel sounds present, nontender, no distention. CENTRAL NERVOUS SYSTEM: No facial droop. Speech is clear. Obeys simple commands. Moves extremities. EXTREMITIES: 1+ BLE edema w/ underlying non pitting lymphedema, no erythema seen. Results & Data Results & Data ([facility]) Vital Signs (Past 12 Hours) Vital Signs Temp Pulse Pulse Resp BP BP Pulse Ox 07/19/22 11:40 36.5 C 83 18 144/83 H 96 07/19/22 11:27 86 07/19/22 08:51 36.7 C 76 20 160/82 H 97 07/19/22 07:32 87 18 134/80 98 07/19/22 04:00 85 20 126/73 96 07/19/22 03:00 88 22 134/87 95 O2 Del Method 07/19/22 11:40 Room Air 07/19/22 11:27 07/19/22 08:51 Room Air 07/19/22 07:32 Room Air 07/19/22 04:00 Room Air 07/19/22 03:00 Room Air
--- NOTE | 2022-07-19 15:14 | Electrocardiogram Report ---
Test Reason : Blood Pressure : / mmHG Vent. Rate : 086 BPM Atrial Rate : 086 BPM P-R Int : 160 ms QRS Dur : 088 ms QT Int : 386 ms P-R-T Axes : 040 052 060 degrees QTc Int : 461 ms Normal sinus rhythm Low voltage QRS Borderline ECG When compared with ECG of 27-JUN-2021 21:32, No significant change was found Confirmed by Conrad Gibson ([id number] on 07/19/2022 3:13:46 PM Referred By: Fab Arroyo Confirmed By:Conrad Gibson
[2022-07-19] MEDS: WARFARIN SOD 5 MG TAB PO SCH (16:42)
[2022-07-19] MEDS: TAMSULOSIN HCL 0.4 MG CAP PO SCH (21:33)
[2022-07-19] MEDS: GABAPENTIN 400 MG CAP PO SCH (21:35)
[2022-07-20] MEDS: LACTULOSE 200GM/700ML WTR ENEMA PR SCH (06:18)
[2022-07-20] MEDS: INSULIN ASPART PER UNIT SC SCH ×4 (08:22→21:07)
[2022-07-20] MEDS: LANTUS PER UNIT CHARGE SQ SCH ×2 (08:23→21:07)
[2022-07-20] MEDS: DIVALPROEX DELAY RELEASE 500 MG TAB PO SCH ×3 (08:23→20:48)
[2022-07-20] MEDS: allopurinoL 300 MG TAB PO SCH (08:24)
[2022-07-20] MEDS: MULTIVITAMIN TAB PO SCH (08:24)
[2022-07-20] MEDS: FUROSEMIDE 20 MG TAB PO SCH (08:25)
[2022-07-20] MEDS: CHOLECALCIFEROL 1,000 UNITS 25 MCG TAB PO SCH (08:25)
[2022-07-20] MEDS: FINASTERIDE 5 MG TAB PO SCH (08:25)
[2022-07-20] MEDS: ATORVASTATIN 40 MG TAB PO SCH (08:25)
[2022-07-20] MEDS: CALCIUM 600MG + VIT D 400 IU TAB PO SCH ×2 (08:25→20:48)
[2022-07-20] MEDS: PHENYTOIN SODIUM ER 100 MG CAP PO SCH ×2 (08:26→20:49)
[2022-07-20] MEDS: TOPIRAMATE 100 MG TAB PO SCH ×2 (08:26→20:49)
[2022-07-20] MEDS: GABAPENTIN 100 MG CAP PO SCH ×2 (08:26→20:48)
[2022-07-20] MEDS: POTASSIUM CHLORIDE CRTAB 20 MEQ TABCR PO SCH (08:30)
[2022-07-20 09:04] LABS: Hematocrit (blood only) 45.2 % (40.1-51.0); Mean Corpuscular Hemoglobin 34.9 pg (25.0-34.0); Mean Corpuscular Hgb Conc 35.4 g/dL (32.0-36.0); Mean Corpuscular Volume 98.5 fL (80.0-100.0); Mean Platelet Volume 10.2 fL (9.4-12.4); Platelet Count 106 K/uL (130-400); RDW Coefficient of Variation 14.2 % (11.5-14.5); RDW Standard Deviation 51.3 fL (36.4-46.3); Red Blood Count 4.59 M/uL (4.63-6.08); White Blood Count 8.42 K/ul (4.8-10.8)
[2022-07-20 09:11] LABS: INR 2.5 (0.9-1.1)
[2022-07-20 09:22] LABS: BUN Creatinine Ratio 18.2 (10-20); Calcium 8.1 mg/dl (8.5-10.1); Creatinine Clr Calc Pharmacy 93.2 ml/min; Est GFR (African American) 82.4 ml/min; Est GFR (Non-African American) 71.1 ml/min; Magnesium 1.7 mg/dl (1.7-2.4); Phosphorus 2.5 mg/dl (2.5-4.9); Potassium 4.2 mmol/L (3.5-5.1)
[2022-07-20] MEDS: LACTULOSE SYRUP 30 GM/45 ML UDP PO SCH ×4 (10:30→20:50)
--- NOTE | 2022-07-20 16:15 | Hospitalist Progress Note ---
Date of Service July 20, 2022 Assessment & Plan (1) Serum ammonia increased: Plan 61-year-old male with PMH of T2DM, hepatic encephalopathy, HLD, venous insufficiency, solitary kidney, BPH, recurrent UTIs, gout arthropathy, epilepsy on Depakote, DVT on Coumadin presented to our ED 07/19 with elevated ammonia levels. Of note, patient is having tremors and some ambulatory dysfunction going on for a few months now and hence he has been living with his sister. He used to ambulate with a cane, now he is ambulating with a walker. His outpatient labs showed ammonia level of 137, so he was advised to come to the ED for evaluation. Patient's sister states that whenever his Depakote is stopped, he gets bad seizures, so they continue even while his ammonia levels are elevated and they try to manage ammonia levels with lactulose. He is being managed for the following: Elevated ammonia level: Ambulatory dysfunction: Patient presents with ambulatory dysfunction and some tremors for last 3 months, outpatient ammonia level of 137. Admitting ammonia level of 121, follow-up ammonia level 97 Patient is on Depakote, per his sister patient gets bad seizure when Depakote is stopped. Patient is on lactulose at home, but still levels are high. Patient reports having multiple bowel movements per day. GI and neuro evaled, recommends to use L-carnitine if anticonvulsant switch can't be made. Pt is alert and oriented, will get PT/OT, [facility] to assist w/ dc planning. Will likely start on L-carnitine after d/w his sister. --> d/w pt's sister [place] and patient himself in detail about the plan of care and recs of neuro and GI including possiblity of switching seizure meds or using L-carnitine. Pt and his Family declined for both. Wanted to continue with the same as of now and wants to f/u w/ own neurology as OP. Pt might benefit from SNF/acute rehab, PT / OT to [facility] to assist w/ dc planning. History of seizure: Stable on his home regimen Dilantin, Depakote and Topamax. Patient and his sister reluctant to change his current antiseizure medication. Neurology evaluated, recommendation for either L-carnitine or Depakote switch to Lamotrigine or Vimpat. Same communicated to the family, not agreeable w/ any of the options. Wants to continue w/ same regimen. Other chronic medical conditions: BPH, HLD, gout, diabetes, DVT, thrombocytopenia --- continue with home meds as able. DVT prophylaxis: On Coumadin Full code Dispo: Pt's sister expresses some difficulty in his care at her home as both herself and her work and it is difficult to manage time. CM to assist w/ DC plan. stable for DC. Admission and Anticipated Discharge Date Admission Date: July 19, 2022 Subjective Patient seen and examined at bedside as a follow-up of elevated ammonia level with history of seizure and Depakote. Patient was lying in bed, on room air, NAD, reports multiple loose bowel movements while on lactulose, reports eating okay, per RN no new acute event overnight, patient denies any headache/dizziness/chest pain/palpitations/belly pain/other review of symptoms. Physical Exam Physical Exam: GENERAL: Alert and oriented x3. NAD, on RA. HEENT: No pallor, no icterus. Pupils equal, round and reactive to light. Oral mucosa moist. NECK: No JVD, no neck masses. HEART: S1 and S2 heard. Regular rate and rhythm. No murmur, no gallop. RESPIRATORY SYSTEM: Normal AP diameter. No accessory muscle use. No wheezing, no crackles. ABDOMEN: Soft, bowel sounds present, nontender, no distention. CENTRAL NERVOUS SYSTEM: No facial droop. Speech is clear. Obeys simple commands. Moves extremities. EXTREMITIES: 1+ BLE edema w/ underlying non pitting lymphedema, no erythema seen. Results & Data Results & Data ([facility]) Vital Signs (Past 12 Hours) Vital Signs Temp Pulse Pulse Resp BP BP Pulse Ox 07/20/22 15:15 36.8 C 80 18 129/40 L 96 07/20/22 14:58 83 07/20/22 11:34 37.2 C 96 H 20 130/86 96 07/20/22 08:00 36.7 C 77 20 137/74 97 07/20/22 07:06 77 O2 Del Method 07/20/22 15:15 Room Air 07/20/22 14:58 07/20/22 11:34 Room Air 07/20/22 08:00 Room Air 07/20/22 07:06
[2022-07-20] MEDS: WARFARIN SOD 5 MG TAB PO SCH (16:44)
[2022-07-20] MEDS: GABAPENTIN 400 MG CAP PO SCH (20:50)
[2022-07-20] MEDS: TAMSULOSIN HCL 0.4 MG CAP PO SCH (20:50)
[2022-07-21 07:12] LABS: INR 2.7 (0.9-1.1); Prothrombin Time 26.8 Seconds (9.0-12.0)
[2022-07-21] MEDS: DIVALPROEX DELAY RELEASE 500 MG TAB PO SCH ×3 (08:11→20:06)
[2022-07-21] MEDS: FINASTERIDE 5 MG TAB PO SCH (08:11)
[2022-07-21] MEDS: CALCIUM 600MG + VIT D 400 IU TAB PO SCH ×2 (08:11→20:06)
[2022-07-21] MEDS: PHENYTOIN SODIUM ER 100 MG CAP PO SCH ×2 (08:11→20:07)
[2022-07-21] MEDS: MULTIVITAMIN TAB PO SCH (08:11)
[2022-07-21] MEDS: TOPIRAMATE 100 MG TAB PO SCH ×2 (08:11→20:05)
[2022-07-21] MEDS: GABAPENTIN 100 MG CAP PO SCH ×2 (08:11→20:07)
[2022-07-21] MEDS: ATORVASTATIN 40 MG TAB PO SCH (08:12)
[2022-07-21] MEDS: CHOLECALCIFEROL 1,000 UNITS 25 MCG TAB PO SCH (08:12)
[2022-07-21] MEDS: LACTULOSE SYRUP 30 GM/45 ML UDP PO SCH ×4 (08:12→20:08)
[2022-07-21] MEDS: FUROSEMIDE 20 MG TAB PO SCH (08:12)
[2022-07-21] MEDS: allopurinoL 300 MG TAB PO SCH (08:12)
[2022-07-21] MEDS: INSULIN ASPART PER UNIT SC SCH ×4 (08:22→20:43)
[2022-07-21] MEDS: POTASSIUM CHLORIDE CRTAB 20 MEQ TABCR PO SCH (08:22)
[2022-07-21] MEDS: LANTUS PER UNIT CHARGE SQ SCH ×2 (08:22→20:44)
[2022-07-21] MEDS: WARFARIN SOD 5 MG TAB PO SCH (15:24)
--- NOTE | 2022-07-21 16:21 | Hospitalist Progress Note ---
Date of Service July 21, 2022 Assessment & Plan (1) Serum ammonia increased: Plan 61-year-old male with PMH of T2DM, hepatic encephalopathy, HLD, venous insufficiency, solitary kidney, BPH, recurrent UTIs, gout arthropathy, epilepsy on Depakote, DVT on Coumadin presented to our ED 07/19 with elevated ammonia levels. Of note, patient is having tremors and some ambulatory dysfunction going on for a few months now and hence he has been living with his sister. He used to ambulate with a cane, now he is ambulating with a walker. His outpatient labs showed ammonia level of 137, so he was advised to come to the ED for evaluation. Patient's sister states that whenever his Depakote is stopped, he gets bad seizures, so they continue even while his ammonia levels are elevated and they try to manage ammonia levels with lactulose. He is being managed for the following: Elevated ammonia level: Ambulatory dysfunction: Patient presents with ambulatory dysfunction and some tremors for last 3 months, outpatient ammonia level of 137. Admitting ammonia level of 121, follow-up ammonia level 97 Patient is on Depakote, per his sister patient gets bad seizure when Depakote is stopped. Patient is on lactulose at home, but still levels are high. Patient reports having multiple bowel movements per day. GI and neuro evaled, recommends to use L-carnitine if anticonvulsant switch can't be made. Pt is alert and oriented, will get PT/OT, [facility] to assist w/ dc planning. Will likely start on L-carnitine after d/w his sister. --> d/w pt's sister [place] and patient himself in detail about the plan of care and recs of neuro and GI including possiblity of switching seizure meds or using L-carnitine. Pt and his Family declined for both. Wanted to continue with the same as of now and wants to f/u w/ own neurology as OP. Pt might benefit from SNF/acute rehab, PT / OT to [facility] to assist w/ dc planning. Ammonia level WNL lately History of seizure: Stable on his home regimen Dilantin, Depakote and Topamax. Patient and his sister reluctant to change his current antiseizure medication. Neurology evaluated, recommendation for either L-carnitine or Depakote switch to Lamotrigine or Vimpat. Same communicated to the family, not agreeable w/ any of the options. Wants to continue w/ same regimen. Other chronic medical conditions: BPH, HLD, gout, diabetes, DVT, thrombocytopenia --- continue with home meds as able. DVT prophylaxis: On Coumadin Full code Dispo: Pt's sister expresses some difficulty in his care at her home as both herself and her work and it is difficult to manage time. CM to assist w/ DC plan. stable for DC. Admission and Anticipated Discharge Date Admission Date: July 19, 2022 Subjective Patient seen and examined at bedside as a follow-up of elevated ammonia level with history of seizure and Depakote. Patient was lying in bed, on room air, NAD, reports multiple loose bowel movements while on lactulose, reports eating okay, patient denies any headache/dizziness/chest pain/palpitations/belly pain/other review of symptoms. Physical Exam Physical Exam: GENERAL: Alert and oriented x3. NAD, on RA. HEENT: No pallor, no icterus. Pupils equal, round and reactive to light. Oral mucosa moist. NECK: No JVD, no neck masses. HEART: S1 and S2 heard. Regular rate and rhythm. No murmur, no gallop. RESPIRATORY SYSTEM: Normal AP diameter. No accessory muscle use. No wheezing, no crackles. ABDOMEN: Soft, bowel sounds present, nontender, no distention. CENTRAL NERVOUS SYSTEM: No facial droop. Speech is clear. Obeys simple commands. Moves extremities. EXTREMITIES: 1+ BLE edema w/ underlying non pitting lymphedema, no erythema seen. Results & Data Results & Data ([facility]) Vital Signs (Past 12 Hours) Vital Signs Temp Pulse Pulse Resp BP Pulse Ox O2 Del Method 07/21/22 15:31 36.7 C 79 18 132/75 96 Room Air 07/21/22 15:10 81 07/21/22 11:42 36.9 C 89 22 143/73 H 96 Room Air 07/21/22 07:43 36.7 C 75 18 122/67 97 Room Air 07/21/22 07:06 77
[2022-07-21] MEDS: TAMSULOSIN HCL 0.4 MG CAP PO SCH (20:05)
[2022-07-21] MEDS: GABAPENTIN 400 MG CAP PO SCH (20:06)
[2022-07-22 06:33] LABS: INR 3.3 (0.9-1.1); Prothrombin Time 33.2 Seconds (9.0-12.0)
[2022-07-22] MEDS: CALCIUM 600MG + VIT D 400 IU TAB PO SCH (08:17)
[2022-07-22] MEDS: DIVALPROEX DELAY RELEASE 500 MG TAB PO SCH (08:17)
[2022-07-22] MEDS: CHOLECALCIFEROL 1,000 UNITS 25 MCG TAB PO SCH (08:17)
[2022-07-22] MEDS: MULTIVITAMIN TAB PO SCH (08:17)
[2022-07-22] MEDS: TOPIRAMATE 100 MG TAB PO SCH (08:17)
[2022-07-22] MEDS: PHENYTOIN SODIUM ER 100 MG CAP PO SCH (08:17)
[2022-07-22] MEDS: ATORVASTATIN 40 MG TAB PO SCH (08:17)
[2022-07-22] MEDS: GABAPENTIN 100 MG CAP PO SCH (08:18)
[2022-07-22] MEDS: FINASTERIDE 5 MG TAB PO SCH (08:18)
[2022-07-22] MEDS: allopurinoL 300 MG TAB PO SCH (08:18)
[2022-07-22] MEDS: FUROSEMIDE 20 MG TAB PO SCH (08:18)
[2022-07-22] MEDS: LACTULOSE SYRUP 30 GM/45 ML UDP PO SCH ×2 (08:19→13:31)
[2022-07-22] MEDS: POTASSIUM CHLORIDE CRTAB 20 MEQ TABCR PO SCH (08:25)
[2022-07-22] MEDS: INSULIN ASPART PER UNIT SC SCH ×2 (08:25→12:17)
[2022-07-22] MEDS: LANTUS PER UNIT CHARGE SQ SCH (08:25)
[2022-07-22] MEDS ORDERED: Nursing to Pharmacy Communication SCH (10:45)
[2022-07-22] MEDS ORDERED: ACETAMINOPHEN 325 MG TAB PO ONE (10:45)
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
== END 2022-07-22 13:43 | DRG 642 ==
LOC: ED 23:53 → EDINP 07-19 03:13 → 2N 07-19 08:37
DX: T42.6X5A Adverse effect of other antiepileptic and sedative-hypnotic drugs, initial encounter; Z90.5 Acquired absence of kidney; E72.20 Disorder of urea cycle metabolism, unspecified; Z86.718 Personal history of other venous thrombosis and embolism; R26.9 Unspecified abnormalities of gait and mobility; N40.0 Benign prostatic hyperplasia without lower urinary tract symptoms; Z88.6 Allergy status to analgesic agent; Z79.01 Long term (current) use of 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s; E78.5 Hyperlipidemia, unspecified; Z83.49 Family history of other endocrine, nutritional and metabolic diseases; K75.81 Nonalcoholic steatohepatitis (NASH); Z79.84 Long term (current) use of oral hypoglycemic drugs; E11.9 Type 2 diabetes mellitus without complications; M10.9 Gout, unspecified; D69.6 Thrombocytopenia, unspecified; G40.802 Other epilepsy, not intractable, without status epilepticus; Z79.899 Other long term (current) drug therapy

== ENCOUNTER 2023-10-03 23:21 | Inpatient (IN) ==
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
--- NOTE | 2023-10-04 00:28 | XRay Report ---
SINGLE VIEW CHEST CLINICAL HISTORY: Dizziness. FINDINGS: An AP, portable, upper chest radiograph is compared to study dated 06/27/2021 and correlate d with chest CT dated 10/15/2020. The examination is degraded by portable technique and apical lordoti c positioning. The heart is enlarged. There is pulmonary vascular congestion. Small pleural effusions are suspected with bibasilar atelectasis. No pneumothorax is seen. The skeletal structures are osteo penic. The skeletal structures are osteopenic. The bony thorax is grossly intact. Arthritic change is seen in the shoulders. IMPRESSION: 1. Cardiomegaly with mild pulmonary vascular congestion. 2. Suspect small pleural effusion. ACT 112: Negative or not required by law. Electronically signed by: Alfredo Cade M.D. 10/04/2023 12:27 AM
[2023-10-04 00:40] LABS: Basophils # (auto) 0.02 K/uL (0.00-0.20); Basophils % (auto) 0.2 %; Eosinophils # (auto) 0.04 K/uL (0.00-0.50); Eosinophils % (auto) 0.5 %; Hematocrit (blood only) 45.6 % (42.0-52.0); Immature Granulocytes # (auto) 0.07 K/uL (0.01-0.20); Immature Granulocytes % (auto) 0.8 %; Lymphocytes # (auto) 1.42 K/uL (1.20-3.40); Mean Corpuscular Hemoglobin 33.9 pg (25.0-34.0); Mean Corpuscular Hgb Conc 35.1 g/dL (32.0-36.0); Mean Corpuscular Volume 96.6 fL (80.0-100.0); Mean Platelet Volume 9.6 fL (9.4-12.4); Monocytes # (auto) 0.82 K/uL (0.11-0.59); Monocytes % (auto) 9.8 %; Neutrophils % (auto) 71.7 %; Platelet Count 113 K/uL (130-400); RDW Coefficient of Variation 14.3 % (11.5-14.5); RDW Standard Deviation 50.4 fL (36.4-46.3); Red Blood Count 4.72 M/uL (4.70-6.10); White Blood Count 8.37 K/ul (4.8-10.8)
[2023-10-04 01:13] LABS: INR 2.4 (0.9-1.1); Prothrombin Time 25.1 Seconds (9.0-12.0)
[2023-10-04 01:17] LABS: Albumin Globulin Ratio 1.5 (0.9-2); Albumin Level 3.8 gm/dl (3.4-5.0); BUN Creatinine Ratio 17.9 (10-20); Bilirubin,Total 0.4 mg/dl (0.2-1.0); Calcium 8.6 mg/dl (8.6-10.3); Creatinine Clr Calc Pharmacy 91.4 ml/min; Globulin 2.6 gm/dl (2.5-4.0); Potassium 3.8 mmol/L (3.5-5.1); Total Protein 6.4 gm/dl (6.0-8.3); Troponin I High Sensitivity 6.5 pg/ml (0-20)
[2023-10-04 01:24] LABS: Phenytoin (Dilantin) 15.2 mcg/ml (10-20)
[2023-10-04] MEDS: SODIUM CHLORIDE 0.9% 500 ML IV ONE (01:48)
[2023-10-04 02:16] LABS: Magnesium 1.7 mg/dl (1.7-2.4); Phosphorus 2.3 mg/dl (2.5-4.9)
[2023-10-04] MEDS: MAGNESIUM SULFATE / D5W 1 GM/100 ML BAG IV STA (02:51)
--- NOTE | 2023-10-04 03:09 | CT Scan Report ---
Exam(s): CT HEAD Without Contrast EXAM: CT Head Without Intravenous Contrast CLINICAL HISTORY: Reason for exam: dizziness. TECHNIQUE: Axial computed tomography images of the head/brain without intravenous contrast. CTDI is 39.03 mGy and DLP is 625.8 mGy-cm. Automated exposure control was utilized for the study. A dose lowering technique was utilized adhering to the principles of ALARA. COMPARISON: Comparison made to prior head CT from March 04, 2022. FINDINGS: Brain: Unremarkable. No hemorrhage. No significant white matter disease. No edema. Ventricles: Unremarkable. No ventriculomegaly. Bones/joints: Unremarkable. No acute fracture. Soft tissues: Unremarkable. Sinuses: Unremarkable as visualized. No acute sinusitis. Mastoid air cells: Unremarkable as visualized. No mastoid effusion. IMPRESSION: No evidence of acute intracranial pathology. Electronically signed by: Pauline De Luna MD 10/04/23 03:09 AM
[2023-10-04 03:38] LABS: Appearance Urine Clear (Clear); Bacteria Urine Automated Negative (Negative); Bilirubin Urine Negative (Negative); Blood Urine Trace (Negative); Cast Urine Automated 0 /lpf (0-5); Color Urine Yellow; Glucose Urine UA 3+ (Negative); Ketones Urine Negative (Negative); Leukocyte Esterase Urine Negative (Negative); Nitrite Urine Negative (Negative); Protein Urine Negative (Negative); RBC Urine Automated 0-4 /hpf (0-4); Specific Gravity Urine 1.024 (1.000-1.030); Urobilinogen Urine Negative (Negative); WBC Urine Automated 0 /hpf (0-5); pH Urine 6.5 (4.5-7.5)
[2023-10-04] MEDS: LACTULOSE SYRUP 30 GM/45 ML UDP PO STA (04:32)
[2023-10-04] MEDS ORDERED: SODIUM PHOSPHATE 3 MMOL/1 ML INFUSION IV STA (04:49)
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
[2023-10-04] MEDS: NovoLIN-R INSULIN PER UNIT CHARGE IV STA (05:04)
[2023-10-04] MEDS: SODIUM PHOSPHATE 15 MMOL in SODIUM CHLORIDE 0.9% 250 ML IV ONE (05:33)
[2023-10-04] MEDS ORDERED: NITROGLYCERIN SL 0.4 MG/TAB TAB SL PRN (05:46)
[2023-10-04] MEDS ORDERED: DEXTROSE 50% 50 ML SYRINGE IV PRN (05:46)
[2023-10-04] MEDS ORDERED: GLUCOSE 10 TAB/TUBE PO PRN (05:46)
[2023-10-04] MEDS ORDERED: GLUCAGON FOR INJ 1 MG VIAL SQ PRN (05:46)
[2023-10-04] MEDS ORDERED: GLUCOSE 40% GEL 15 GM TUBE PO PRN (05:46)
[2023-10-04] MEDS ORDERED: CARBOHYDRATES FOR HYPOGLYCEMIA PO PRN (05:46)
[2023-10-04] MEDS: CALCIUM 600MG + VIT D 400 IU TAB PO SCH (09:07)
[2023-10-04] MEDS: ATORVASTATIN 40 MG TAB PO SCH (09:07)
[2023-10-04] MEDS: allopurinoL 300 MG TAB PO SCH (09:07)
[2023-10-04] MEDS: DOCUSATE SODIUM 100 MG CAP PO SCH (09:08)
[2023-10-04] MEDS: FINASTERIDE 5 MG TAB PO SCH (09:08)
[2023-10-04] MEDS: DIVALPROEX DELAY RELEASE 500 MG TAB PO SCH ×2 (09:08→14:44)
[2023-10-04] MEDS: CHOLECALCIFEROL 25 MCG (1000 UNITS) TAB PO SCH (09:08)
[2023-10-04] MEDS: POTASSIUM CHLORIDE CRTAB 20 MEQ TABCR PO SCH (09:09)
[2023-10-04] MEDS: FUROSEMIDE 20 MG TAB PO SCH (09:09)
[2023-10-04] MEDS: PHENYTOIN SODIUM ER 100 MG CAP PO SCH (09:09)
[2023-10-04] MEDS: LACTULOSE SYRUP 30 GM/45 ML UDP PO SCH (09:09)
[2023-10-04] MEDS: GABAPENTIN 100 MG CAP PO SCH (09:09)
[2023-10-04] MEDS: TOPIRAMATE 100 MG TAB PO SCH (09:09)
[2023-10-04] MEDS: MULTIVITAMIN TAB PO SCH (09:09)
[2023-10-04] MEDS: INSULIN ASPART PER UNIT CHARGE SC SCH (10:13)
--- NOTE | 2023-10-04 13:10 | Electrocardiogram Report ---
Test Reason : Blood Pressure : / mmHG Vent. Rate : 108 BPM Atrial Rate : 108 BPM P-R Int : 152 ms QRS Dur : 086 ms QT Int : 332 ms P-R-T Axes : 040 051 058 degrees QTc Int : 444 ms Sinus tachycardia Otherwise normal ECG When compared with ECG of 19-JUL-2022 01:11, No significant change was found Confirmed by Conrad Gibson ([id number]) on 10/04/2023 1:10:33 PM Referred By: REFERRED SELF Confirmed By:Conrad Gibson
[2023-10-04] MEDS: POT PHOSPHATE MONOBASIC W/ SOD TAB PO SCH (14:43)
[2023-10-04] MEDS: WARFARIN SOD 7.5 MG TAB PO SCH (14:44)
--- NOTE | 2023-10-04 15:54 | Communication Note ---
Date of Service: October 04, 2023 Patient was seen and examined at bedside as a follow-up of possible mild hepatic encephalopathy. Labs and imaging reviewed. CT head with no acute finding. Topiramate level pending, phenytoin and valproic acid level WNL. Ammonia trended up today. c/w lactulose w/ a goal of 3-4 BMs a day. Ammonia level in AM. Continue other prior home medications as able. Full progress note to follow tomorrow.
[2023-10-04] MEDS: TAMSULOSIN HCL 0.4 MG CAP PO SCH (20:13)
[2023-10-04] MEDS: GABAPENTIN 400 MG CAP PO SCH (20:14)
--- OUTSIDE RECORDS SUMMARY | 2023-10-05 04:37 | External Medical Summary ---
Author Name Unknown Address Unknown Organization : Laboratory Report Ordering Provider Test Date Status CAROLINE WILSON 09/16/2023 15:30:49 Final Therapeutic ranges for non-o perative patients:
Prophylaxsis/treatment of DVT: (Range:2.0-3.0)
Treatment of pulmonary embolism:(Range:2.0-3.0)
Prevention of systemic embolism from:
-tissue heart valves
-acute myocardial infarction
-valvular heart disease
-atrial fibrillation
(Range: 2.0-3.0)
Mechanical prosthetic valves: (Range: 2.5-3.5) Observation Date Value Abnormality Reference (Units ) Status INR in Capillary blood by Coagulation assay 09/16/2023 15:30:49 3.0 (INR) Final Performing Location
--- OUTSIDE RECORDS SUMMARY | 2023-10-05 04:37 | External Medical Summary | Summary of Care ---
Author Name Unknown Organization [facility] Address [address] [place] [address] Phone [phone] Care Team Providers Care Jack Strip Assembler Name Role Phone Fab Arroyo MD Primary Care Provider [phone] Reason for Visit * Reason Comments Dosage Adjustment In Person (Anticoag Cl inic) Encounter Details Date Type Department Care Team (Latest Contact Info) Description 09/16/2023 3:30 PM [facility] Anticoagulation Pharmacy, [address] [address] [facility] [place] [address] 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 (deep vein thrombosis)*; Anticoagulation management encounter; 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 60 Cap 5 06/08/2019 Active gabapentin (NEURONTIN) 100 MG Capsule Take 1 Capsule by mouth in the morning and 1 Capsule before bedtime. 0 Active Tab-A-Rory Oral Tablet Take 1 tablet by mouth once daily 90 Tab 5 06/28/2020 Active Lidocaine 5 % External Ointment Apply 1 Film topically to affected area daily. Apply to legs as needed 0 Active Loratadine 10 MG Oral Tablet (Claritin)Indicati ons:Suspected COVID-19 virus infection,Stuffy and runny nose,Post-nasal drip Take by mouth 1 Tablet in the morning. x1-2 wks then as needed-otc. 30 Tablet 0 11/22/2021 Active Additional Information Patient not taking.Reported on 08/29/2023 Warfarin Sodium 5 MG Oral Tablet (Coumadin)Indicati ons:Anticoagulatio n management encounter,Deep vein thrombosis (DVT) of proximal lower extremity, unspecified chronicity, unspecified laterality (HCC) TAKE 1 TO 1 & 1/2 (ONE TO ONE & ONE-HALF) TABLETS BY MOUTH ONCE DAILY DIRECTED BY COUMADIN CLINIC 135 Tablet 3 07/09/2022 Active Furosemide 20 MG Oral Tablet (Lasix) TAKE 1 TABLET BY MOUTH ONCE DAILY FOR FLUID 90 Tablet 3 10/10/2022 Active Gabapentin 400 MG Oral Capsule (Neurontin) Take 1 capsule by mouth at bedtime 90 Capsule 3 01/02/2023 Active Allopurinol 300 MG Oral Tablet (Zyloprim) TAKE 1 & 1/2 (ONE & ONE-HALF) TABLETS BY MOUTH ONCE DAILY 135 Tablet 2 04/04/2023 Active Topiramate 200 MG Oral Tablet (topAMAX)Indicatio ns:Generalized convulsive epilepsy without intractable epilepsy (HCC) Take 1 tablet by mouth twice daily 180 Tablet 1 05/09/2023 Active Tamsulosin HCl 0.4 MG Oral Capsule (Flomax)Indication s:Nephrolithiasis Take 1 capsule by mouth once daily 90 Capsule 3 05/30/2023 Active Dilantin 100 MG Oral Capsule TAKE 4 CAPSULES BY MOUTH TWICE DAILY 240 Capsule 5 07/03/2023 Active Finasteride 5 MG Oral Tablet (Proscar) TAKE 1 TABLET BY MOUTH IN THE MORNING 90 Tablet 0 08/06/2023 Active Lactulose 10 GM/15ML Oral Solution (Constulose) TAKE 45 ML BY MOUTH 4 TIMES DAILY 5400 mL 5 08/02/2023 Active glipiZIDE 10 MG Oral Tablet (Glucotrol) TAKE 1 TABLET BY MOUTH TWICE DAILY 30 MIN BEFORE A MEAL 180 Tablet 1 08/15/2023 Active Tradjenta 5 MG Oral Tablet (linaGLIPtin)Indic ations:Type 2 diabetes mellitus with hemoglobin A1c goal of less than 8.0% (HCC) Take 1 tablet by mouth once daily 90 Tablet 1 08/23/2023 Active Potassium Chloride ER 20 MEQ Oral Tablet Extended Release Take 2 tablets by mouth once daily 180 Tablet 08/23/2023 Active Atorvastatin Calcium 80 MG Oral Tablet (Lipitor) TAKE 1 TABLET BY MOUTH ONCE DAILY FOR CHOLESTEROL 90 Tablet 1 08/29/2023 Active Divalproex Sodium 500 MG Oral Tablet Delayed Release (Depakote DR) TAKE 2 TABLETS BY MOUTH IN THE MORNING, 1 TABLET AT 3PM, AND 2 TABLETS IN THE EVENING. 150 Tablet 5 09/03/2023 Active documented as of this encounter (statuses as of 09/16/2023) Active Problems Problem Noted Date Diagnosed Date Liver failure without hepatic coma 08/09/2022 Acute embolism and thrombosi s of deep vein of proximal lower extremity 08/09/2022 History of UTI 07/10/2022 BPH with obstruction/lower urinary tract symptom s 04/07/2021 Hepatic encephalopathy 12/14/2019 History of adenomatous polyp of colon 08/12/2018 Type 2 diabetes mellitus wit h hemoglobin A1c goal of less than 8.0% 08/12/2018 Absent kidney, acquired 01/08/2018 Venous insufficiency 04/30/2014 Dyslipidemia, goal LDL below 130 01/03/2011 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 Overview: ICD-9 Code 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 0 08/30/2004 Overview: ICD-10 update of inactive term GENERALIZED CONVULSIVE EPILE PSY; WITHOUT MENTION OF INTRACTABLE EPILEPSY documented as of this encounter (statuses as of 09/16/2023) Resolved Problems Problem Noted Date Diagnosed Date Resolved Date Metabolic acidosis with respiratory alkalosis 04/04/20 16 07/25/2017 DVT (deep venous thrombosis) (HCC) (aka DVT (DEEP VENOUS THROMBOSIS) (HCC)) 03/16/2015 07/25/20 17 Stasis dermatitis of both legs 04/30/2014 01/15/2017 Lymphedema of leg 04/30/2014 01/15/2017 Spasm of muscle 04/18/2012 01/15/2017 Backache 04/18/2012 01/15/2017 Obesity, Class II, BMI 35-39 .9, isolated (see actual BMI) 01/16/2010 01/15/2017 Overview: Per Obesity Protocol, #19 Benign neoplasm of colon 08/05/200903/2019 Overview: tubular adenoma,, f/u in one year Benign neoplasm of colon 02/22/200903/2019 Overview: 22 polyps , 1 tubulo-villous adenoma, f/u in 6 months DVT (deep venous thrombosis) 03/09/2008 04/07/2019 ADVANCE DIRECTIVE INFORMATION 08/03/2005 08/12/2018 Overview: No, Advance Directive brochure offered , patient declined. Gouty arthropathy 01/11/2005 05/19/2009 Overview: ICD-9 Code Update ICD-10 update of inactive term Anticoagulation management encounter 08/28/2004 08/12/2018 DEEP PHLEBITIS-LEG NEC 08/28/200401/14 Convulsions 11/24/2001 01/15/2008 Overview: ICD-10 update of inactive term ACUTE PHARYNGITIS 07/15/2001 01/13/2007 ACUTE URI NOS 07/15/2001 01/13/2007 FOOT PAIN 10/31/2000 01/13/2007 ELECTROLYT-FLUID DIS NEC 01/12/200007/2008 Overview: glucose intolerance Dyslipidemia, goal to be determined 07/05/2010 documented as of this encounter (statuses as of 09/16/2023) Immunizations Name Administration Dates Next Due COVID-19 mRNA, LNP-s, No Pre serve, 2-Dose Series (KickSport) 04/04/2021,03/11/2021 Pneumococcal Polysaccharide PPV23 (Pneumovax) 03/24/2013 Seasonal Influenza, Split, I IV3, With Preserve, Inj 08/20/2013(Deferred: Patient Refused - Pt wants to get from PCP),05/23/2010,05/12/2009,07/16/2008 TDAP (age 10 and older)(Boostrix) 05/02/2018 TDAP (age 11 and older)(Adacel) 02/12/2008 documented as of this encounter Social History Tobacco Use Types Packs/Day Years Used Date Smoking Tobacco: Never Smokeless Tobacco: Never Alcohol Use Standard Drinks/Week Comments No 0 (1 standard drink = 0.6 oz pur e alcohol) PHQ-2 Answer Date Recorded PHQ Adult Total Score 0 09/12/2022 Hunger Vital Sign Answer Date Recorded Worried About Running Out of Food in the Last Ye ar Never true 10/20/2019 Ran Out of Food in the Last Year Never true 10/20/2019 Sex and Gender Information Value Date Recorded Sex Assigned at Male 11/13/2018 3:25 PM EDT Gender Identity Male 11/13/2018 3:25 PM EDT Sexual Orientation Straight 11/13/2018 3: 25 PM EDT Job Start Date Occupation Industry Not on file Not on file Not on file documented as of this encounter Progress Notes * Gladys Rivera RPh - 09/16/2023 3:27 PM EST Medication Therapy Disease Management - Anticoagulation Patient: Eliseo Smith | : 1960 Subjective Patient-Reported Symptoms: Patient Findings Negatives: Signs/symptoms of thrombosis, Signs/symptoms of bleeding, Change in health, Change in alcohol use, Change in activity, Upcoming invasive procedure, Missed doses, Extra doses, Change in medications, Change in diet/appetite, Bruising Objective Current Warfarin Dose As of 09/16/2023 Warfarin maintenance plan: 7.5 mg (5 mg x 1.5) every Mon, Fri; 5 mg (5 mg x 1) all other days INR Result As of 09/16/2023 INR goal: 2.0-3.0 INR used for dosin.0 (09/16/2023) Assessment & Plan Warfarin Plan As of 09/16/2023 Full warfarin instructions: 7.5 mg every Mon, Fri; 5 mg all other days No change documented: Gladys Rivera RPh Next INR check: 10/28/2023 Repeat PT/INR in 6 week(s) Weekly dose: not changed Additional Dosing Information: Galdys Rivera [facility] Clinical Pharmacist 09/16/2023, 3:45 PM documented in this encounter Plan of Treatment Upcoming Encounters Date Type Department Care Team (Late st Contact Info) Description 10/10/2023 1:40 PM EST Office Visit Podiatry [facility] [address] [facility] [place] [address] Sandee Smith DPM [address] [facility] [place] [address] 10/28/2023 3:20 PM EDT [place]tico[place] Pharmacy, [place] [address] [facility] [place] [address] [facility] [address] [place] [address] 11/29/2023 3:20 PM EDT Office Visit Neurology [facility] [address] [facility] [place] [address] Leona Richardson PA-C [address] [facility] [place] [address] 12/25/2023 4:00 PM EDT Office Visit Urology, [facility] [address] [facility] [place] [address] John Owen MD [address] [facility] [address] [place] [address] 01/09/2024 2:20 PM EDT [facility] [address] [place] [facility] [place] [id number] Fab Arroyo MD [address] [facility] [place] [address] Health Maintenance Due Date Last Done Comments HIV Screening 1973 Zoster Vaccines (1 of 2) 2008 COLONOSCOPY-EVERY 2 YRS AGES 18-100 03/01/2013 03/01/2011, 08/30/2009, 02/22/2009 Pneumococcal Vaccine: Pediatrics (0 to 5 Years) and At-Risk Patients (6 to 64 Years) (2 - PCV) 03/24/2014 03/24/2013 Hepatitis B (1 of 3 - Risk 3-dose series) 2018 Diabetic Foot Exam 03/03/2021 03/03/2020 Diabetic Eye Exam 03/14/2021 03/14/2020 COVID-19 Vaccine (3 - season) 2023 04/04/2021, 03/11/2021 Influenza Vaccine (FLU shot) (#1) 2023 05/23/2010, 05/12/2009, 07/16/2008, Additional history exists Albumin/Creatinine Ratio 07/18/2023 07/18/2022, 0511/2019 Depression Screening 09/12/2023 09/12/2022 HbA1c 02/28/2024 08/30/2023, 04/05, 12/06/2022, Additional history exists GFR 08/30/2024 08/30/2023, 04/05, 12/06/2022, Additional history exists Lipid Panel 04/22/2028 04/22/2023, 07/05, 01/31/2021, Additional history exists DTaP,Tdap,and Td Vaccines (3 - Td or Tdap) 05/02/2028 05/02/2018, 02/12/2008 GARDASIL-HPV IMMUNIZATION SERIES Aged Out No longer eligible based on patient's age to complete this topic MENINGOCOCCAL (MENACTRA/MENVEO) Aged Out No longer eligible based on patient's age to complete this topic documented as of this encounter Medical Devices Not on filedocumented as of this encounter Procedures Procedure Name Priority Date/Time Associated Diagnosis Comments INR FINGERSTICK, POINT OF CARE STAT 09/16/2023 3:30 PM EST 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 (deep vein thrombosis) Anticoagulation management encounter custodial 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 of 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 therapy documented in this encounter Results * INR FINGERSTICK, POINT OF CARE (09/16/2023 3:30 PM EST) Fingerstick INR 3.0 INR 3:33 PM EST [facility] Blood 09/16/2023 3:30 PM EST 09/16/2023 3:33 PM EST Narrative [facility] 56 - 09/16/2023 3:33 PM EST Therapeutic ranges for non-operative patients: Prophylaxsis/treatment of DVT: (Range:2.0-3.0) Treatment of pulmonary embolism:(Range:2.0-3.0) Prevention of systemic embolism from: -tissue heart valves -acute myocardial infarction -valvular heart disease -atrial fibrillation (Range: 2.0-3.0) Mechanical prosthetic valves: (Range: 2.5-3.5) Milvia Ram [facility] POINT OF CARE TEST DOCKED DEVICE UNSOLICITED RESULTS [facility] [address] [place] [address] [phone] documented in this encounter Visit Diagnoses Diagnosis 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 (deep vein thrombosis)- Primary Personal history of venous thrombosis and embolism Anticoagulation management encounter Encounter for therapeutic drug monitoring custodial current use of 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 therapy documented in this encounter Care Teams Jack Strip Assembler Relationship Specialty Start Date End Date Fab Arroyo MD [address] [place] [id number] PCP - General 05/05/00 documented as of this encounter"
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
--- OUTSIDE RECORDS SUMMARY | 2023-10-05 04:38 | External Medical Summary ---
Author Name Unknown Address Unknown Organization [id number]:[facility] - [address] [place] [address] Laboratory Report Ordering Provider Test Date Status DEAN RUDD 08/30/2023 14:44:45 Final Observation Date Value Abnormality Reference (Units ) Status Phenytoin level 08/30/2023 14:44:45 12.3 10.0 -20.0 (ug/mL) Final Performing Location [facility] - [address] [place] [id number]
--- OUTSIDE RECORDS SUMMARY | 2023-10-05 04:38 | External Medical Summary | Summary of Care ---
Author Name Unknown Organization [facility] Address [address] [place] [address] Phone [phone] Care Team Providers Care Grip Assembler Name Role Phone Blaire Moran MD Primary Care Provider +1- [phone] Reason for Visit * Reason Comments eRx-Medication Refill Encounter Details Date Type Department Care Team (Late st Contact Info) Description 08/14/2023 Refill [facility] [address] [place] [address] Blaire Moran MD [address] [place] [address] Allergies Active Allergy Reactions Criticality Noted Date Comments Indomethacin 10/31/2000 resulted in seizures twice documented as of this encounter (statuses as of 08/15/2023) Medications Medication Sig Dispensed Refills Start Date End Date Status CALTRATE 600 + D 600-125 MG-IU PO TABS One tablet bid 60 0 6 Active VITAMIN D 1000 UNIT PO TABS one tab by mouth daily 0 Active docusate sodium (COLACE) 100 MG CapsuleIndicatio ns:Constipation Take 1 Cap by mouth 2 times a day. 60 Cap 5 9 Active gabapentin (NEURONTIN) 100 MG Capsule Take 1 Capsule by mouth in the morning and 1 Capsule before bedtime. 0 Active Tab-A-Rory Oral Tablet Take 1 tablet by mouth once daily 90 Tab 5 0 Active Lidocaine 5 % External Ointment Apply 1 Film topically to affected area daily. Apply to legs as needed 0 Active Loratadine 10 MG Oral Tablet (Claritin)Indica tions:Suspected COVID-19 virus infection,Stuffy and runny nose,Post-nasal drip Take by mouth 1 Tablet in the morning. x1-2 wks then as needed-otc. 30 Tablet 0 2 Active Warfarin Sodium 5 MG Oral Tablet (Coumadin)Indica tions:Anticoagul ation management encounter,Deep vein thrombosis (DVT) of proximal lower extremity, unspecified chronicity, unspecified laterality (HCC) TAKE 1 TO 1 & 1/2 (ONE TO ONE & ONE-HALF) TABLETS BY MOUTH ONCE DAILY DIRECTED BY COUMADIN CLINIC 135 Tablet 3 2 Active Potassium Chloride ER 20 MEQ Oral Tablet Extended Release Take 2 tablets by mouth once daily 180 Tablet 3 3 Active Atorvastatin Calcium 80 MG Oral Tablet (Lipitor) TAKE 1 TABLET BY MOUTH ONCE DAILY FOR CHOLESTEROL 90 Tablet 3 3 Active Furosemide 20 MG Oral Tablet (Lasix) TAKE 1 TABLET BY MOUTH ONCE DAILY FOR FLUID 90 Tablet 3 3 Active Gabapentin 400 MG Oral Capsule (Neurontin) Take 1 capsule by mouth at bedtime 90 Capsule 3 3 Active Tradjenta 5 MG Oral Tablet (linaGLIPtin)Ind ications:Type 2 diabetes mellitus with hemoglobin A1c goal of less than 8.0% ([facility]) Take 1 tablet by mouth once daily 90 Tablet 1 3 Active Divalproex Sodium 500 MG Oral Tablet Delayed Release (Depakote DR) TAKE 2 TABLET BY MOUTH IN THE MORNING, 1 AT 3PM, AND 2 IN THE EVENING 150 Tablet 5 3 Active Allopurinol 300 MG Oral Tablet (Zyloprim) TAKE 1 & 1/2 (ONE & ONE-HALF) TABLETS BY MOUTH ONCE DAILY 135 Tablet 2 3 Active Topiramate 200 MG Oral Tablet (topAMAX)Indicat ions:Generalized convulsive epilepsy without intractable epilepsy (HCC) Take 1 tablet by mouth twice daily 180 Tablet 1 3 Active Tamsulosin HCl 0.4 MG Oral Capsule (Flomax)Indicati ons:Nephrolithia sis Take 1 capsule by mouth once daily 90 Capsule 3 3 Active Dilantin 100 MG Oral Capsule TAKE 4 CAPSULES BY MOUTH TWICE DAILY 240 Capsule 5 3 Active Finasteride 5 MG Oral Tablet (Proscar) TAKE 1 TABLET BY MOUTH IN THE MORNING 90 Tablet 0 4 Active Lactulose 10 GM/15ML Oral Solution (Constulose) TAKE 45 ML BY MOUTH 4 TIMES DAILY 5400 mL 5 3 Active glipiZIDE 10 MG Oral Tablet (Glucotrol) TAKE 1 TABLET BY MOUTH TWICE DAILY 30 MIN BEFORE A MEAL 180 Tablet 1 4 Active glipiZIDE 5 MG Oral Tablet (Glucotrol) Take 1 tab by mouth by mouth twice per day before meals. 180 Tablet 3 2 08/15/19 24 Discontinued(Med ication/Dose Changed) glipiZIDE 10 MG Oral Tablet (Glucotrol) Take 1 Tablet by mouth in the morning and 1 Tablet before bedtime. 30 minutes before a meal. 180 Tablet 3 3 08/15/19 24 Discontinued documented as of this encounter (statuses as of 08/15/2023) Active Problems Problem Noted Date Diagnosed Date [...] 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 Overview: ICD-9 Code Update [facility] current use of 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 therapy 0 08/30/2004 Overview: ICD-10 update of inactive term GENERALIZED CONVULSIVE EPILE PSY; WITHOUT MENTION OF INTRACTABLE EPILEPSY documented as of this encounter (statuses as of 08/15/2023) Resolved Problems Problem Noted Date Diagnosed Date [...] as of this encounter (statuses as of 08/15/2023) Immunizations Name Administration Dates Next Due COVID-19 mRNA, LNP-s, No Pre serve, 2-Dose Series (Neonode) 04/04/2021,03/11/2021 Pneumococcal Polysaccharide PPV23 (Pneumovax) 03/24/2013 Seasonal [...] on file documented as of this encounter Miscellaneous Notes * Telephone Encounter - Mariia Lombardi RPh - 08/15/2023 12:39 PM ESTSigned Prescriptions: Disp Refills glipiZIDE 10 MG Oral Tablet (Glucotrol) 180 Ta*1 Sig: TAKE 1 TABLET BY MOUTH TWICE DAILY 30 MIN BEFORE A MEALAuthorizing Provider: BLAIRE MORAN User:MARIIA LOMBARDI documented in this encounter Plan of Treatment Upcoming Encounters Date Type Department Care Team (Late st Contact Info) Description 08/27/2023 2:00 PM EST Office Visit Neu[facility] [place] [address] [facility] [address] Leona Richardson PA-C [address] [facility] [place] [address] 08/29/2023 3:40 PM EST Office Visit Family [facility] [place] [address] [place] [facility] [place] [id number] Blaire Moran MD [address] [place] [address] 09/16/2023 3:30 PM EST Anticoagulation Pharmacy, [place] [address] [place] [facility] [place] [address] [facility] [address] [place] [address] 10/10/2023 1:40 PM EST Office Visit Podiatry [facility] [address] [place] [address] Sandee Smith, [facility] [address] [facility] [address] 12/25/2023 4:00 PM EDT Office Visit Urology, [facility] 132 [facility] [place] [address] John Owen MD [address] [address] [place] [address] Health Maintenance Due Date Last Done Comments [...] Additional history exists Albumin/Creatinine Ratio 07/18/2023 07/18/2022, 050 11/2019 Depression Screening 09/12/2023 09/12/2022 HbA1c 10/21/2023 04/22/2023, 05/0 11/2022, 07/18/2022, Additional history exists GFR 04/22/2024 04/22/2023, 05/0 11/2022, 07/23/2022, Additional history exists Lipid Panel 04/22/2028 04/22/2023, [...] Not on filedocumented as of this encounter Care Teams Grip Assembler Relationship Specialty Start Date End Date Blaire Moran MD [address] [place] [address] PCP - General 05/05/00 documented as of this encounter
--- OUTSIDE RECORDS SUMMARY | 2023-10-05 04:38 | External Medical Summary | Summary of Care ---
Author Name Unknown Organization [facility] Address [address] [place] [address] Phone [phone] Care Team Providers Care Sewage Disposal Engineer Name Role Phone Fab Arroyo MD Primary Care Provider +1- [phone] Reason for Visit * Reason Comments eRx-Medication Refill Encounter Details Date Type Department Care Team (Late st Contact Info) Description 07/28/2023 Refill Urology, [facility] [address] [place] [address] John Dos Santos MD [address] [facility] [address] [place] [address] Allergies Active Allergy Reactions Criticality Noted Date Comments Indomethacin 10/31/2000 resulted in seizures twice documented as of this encounter (statuses as of 08/06/2023) Medications Medication Sig Dispensed Refills Start Date [...] as needed-otc. 30 Tablet 0 11/22/2021 Active glipiZIDE 5 MG Oral Tablet (Glucotrol) Take 1 tab by mouth by mouth twice per day before meals. 180 Tablet 3 03/19/2022 Active Warfarin Sodium 5 MG Oral Tablet (Coumadin)Indica tions:Anticoagul ation management encounter,Deep vein thrombosis (DVT) of proximal lower extremity, unspecified chronicity, unspecified laterality (HCC) TAKE 1 TO 1 & 1/2 (ONE TO ONE & ONE-HALF) TABLETS BY MOUTH ONCE DAILY DIRECTED BY COUMADIN CLINIC 135 Tablet 3 07/09/2022 Active glipiZIDE 10 MG Oral Tablet (Glucotrol) Take 1 Tablet by mouth in the morning and 1 Tablet before bedtime. 30 minutes before a meal. 180 Tablet 3 08/09/2022 Active Potassium Chloride ER 20 MEQ Oral Tablet Extended Release Take 2 tablets by mouth once daily 180 Tablet 3 08/22/2022 Active Atorvastatin Calcium 80 MG Oral Tablet (Lipitor) TAKE 1 TABLET BY MOUTH ONCE DAILY FOR CHOLESTEROL 90 Tablet 3 09/05/2022 Active Furosemide 20 MG Oral Tablet (Lasix) TAKE 1 TABLET BY MOUTH ONCE DAILY FOR FLUID 90 Tablet 3 10/10/2022 Active Gabapentin 400 MG Oral Capsule (Neurontin) Take 1 capsule by mouth at bedtime 90 Capsule 3 01/02/2023 Active Tradjenta 5 MG Oral Tablet (linaGLIPtin)Ind ications:Type 2 diabetes mellitus with hemoglobin A1c goal of less than 8.0% ([facility]) Take 1 tablet by mouth once daily 90 Tablet 1 02/19/2023 Active Divalproex Sodium 500 MG Oral Tablet Delayed Release (Depakote DR) TAKE 2 TABLET BY MOUTH IN THE MORNING, 1 AT 3PM, AND 2 IN THE EVENING 150 Tablet 5 03/12/2023 Active Allopurinol 300 MG Oral Tablet (Zyloprim) [...] Lactulose 10 GM/15ML Oral Solution (Constulose) TAKE 45ML BY MOUTH FOUR TIMES DAILY 5400 mL 5 01/08/2023 08/02/20 23 Discontinued Finasteride 5 MG Oral Tablet (Proscar) TAKE 1 TABLET BY MOUTH IN THE MORNING 90 Tablet 0 04/30/2023 08/06/19 24 Discontinued documented as of this encounter (statuses as of 08/06/2023) Active Problems Problem Noted Date Diagnosed Date [...] 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 Overview: ICD-9 Code 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 0 08/30/2004 Overview: ICD-10 update of inactive term GENERALIZED CONVULSIVE EPILE PSY; WITHOUT MENTION OF INTRACTABLE EPILEPSY documented as of this encounter (statuses as of 08/06/2023) Resolved Problems Problem Noted Date Diagnosed Date [...] as of this encounter (statuses as of 08/06/2023) Immunizations Name Administration Dates Next Due COVID-19 [...] encounter Miscellaneous Notes * Telephone Encounter - John Dos Santos MD - 08/06/2023 12:26 PM EST Signed Prescriptions: Disp Refills Finasteride 5 MG Oral Tablet (Proscar) 90 Tab*0 Sig: TAKE 1 TABLET BY MOUTH IN THE MORNING Authorizing Provider: JOHN DOS SANTOS * Telephone Encounter - Awa Rosenthal LPN - 07/30/2023 2:10 PM EST Pending Prescriptions: Disp Refills Finasteride 5 MG Oral Tablet 90 Tab*0 Sig: TAKE 1 TABLET BY MOUTH IN THE MORNING * Telephone Encounter - Awa Rosenthal LPN - 07/30/2023 2:09 PM EST Refill of finasteride requested. Last appt: 07/10/2022 (in office), Visit date not found (telemedicine) Next appt: Visit date not found Review of patient's allergies indicates: Allergen Reactions Indomethacin resulted in seizures twice Thank you, Liseth documented in this encounter Plan of Treatment Upcoming Encounters Date Type Department Care Team (Late st Contact Info) Description 08/07/2023 2:50 PM EST [facility] [place] [address] [facility] [address] [facility] [address] [facility] [address] 08/27/2023 2:00 PM EST Office Visit Neurology [facility] [address] [facility] [place] [address] Leona Richardson PA-C [address] [facility] [place] [address] 08/29/2023 3:40 PM EST Office Visit Family Practice, [place] [address] [facility] [place] [phone] Fab rAroyo MD [address] [facility] [place] [address] 10/10/2023 1:40 PM EST Office Visit Podiatry [facility] [address] [facility] [place] [address] Sandee Smith, ANDREW [address] [place] [address] 12/25/2023 4:00 PM EDT Office Visit Urology, [facility] [address] [place] [address] John Dos Santos MD [address] [place] [address] [place] [address] Health Maintenance Due Date Last Done Comments [...] 05/0 11/2019 Depression Screening 09/12/2023 09/12/2022 HbA1c 10/21/2023 [...] filedocumented as of this encounter Care Teams Sewage Disposal Engineer Relationship Specialty Start Date End Date Fab Arroyo MD [address] [place] [address] PCP - General 05/05/00 documented as of this encounter
--- OUTSIDE RECORDS SUMMARY | 2023-10-05 04:38 | External Medical Summary | Summary of Care ---
Author Name Unknown Organization [facility] Address [address] [place] [address] Phone [phone] Care Team Providers Care [employer]p Head [employer] Experience Strategy Name Role Phone Fab Moran MD Primary Care Provider +1- [phone] Reason for Visit * Reason Comments eRx-Medication Refill Encounter Details Date Type Department Care Team (Late st Contact Info) Description 07/31/2023 Refill [facility] [address] [place] [address] Fab Moran MD [address] [place] [address] Allergies Active Allergy Reactions Criticality Noted Date Comments Indomethacin 10/31/2000 resulted in seizures twice documented as of this encounter (statuses as of 08/02/2023) Medications Medication Sig Dispensed Refills Start Date [...] ONCE DAILY 135 Tablet 2 04/04/2023 Active Finasteride 5 MG Oral Tablet (Proscar) TAKE 1 TABLET BY MOUTH IN THE MORNING 90 Tablet 0 04/30/2023 Active Topiramate 200 MG Oral Tablet (topAMAX)Indicat [...] TWICE DAILY 240 Capsule 5 07/03/2023 Active Lactulose 10 GM/15ML Oral Solution (Constulose) TAKE 45 ML BY MOUTH 4 TIMES DAILY 5400 mL 5 08/02/2023 Active Lactulose 10 GM/15ML Oral Solution (Constulose) TAKE 45ML BY MOUTH FOUR TIMES DAILY 5400 mL 5 01/08/2023 08/02/20 23 Discontinued documented as of this encounter (statuses as of 08/02/2023) Active Problems Problem Noted Date Diagnosed Date [...] 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 Overview: ICD-9 Code 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 0 08/30/2004 Overview: ICD-10 update of inactive term GENERALIZED CONVULSIVE EPILE PSY; WITHOUT MENTION OF INTRACTABLE EPILEPSY documented as of this encounter (statuses as of 08/02/2023) Resolved Problems Problem Noted Date Diagnosed Date [...] as of this encounter (statuses as of 08/02/2023) Immunizations Name Administration Dates Next Due COVID-19 [...] encounter Miscellaneous Notes * Telephone Encounter - Fab Moran MD - 08/02/2023 4:22 PM ESTSigned Prescriptions: Disp Refills Lactulose 10 GM/15ML Oral Solution (Constu*5400 mL5 Sig: TAKE 45ML BY MOUTH 4 TIMES DAILYAuthorizing Provider: FAB MORAN * Telephone Encounter - Nina Zabala LPN - 08/02/2023 8:11 AM ESTPending Prescriptions: Disp Refills Constulose 10 GM/15ML Oral Solution 5,400 *0 Sig: TAKE 45 ML BY MOUTH 4 TIMES DAILY * Telephone Encounter - Ghassan Llanos - 08/01/2023 7:57 PM ESTPending Prescriptions: Disp Refills Constulose 10 GM/15ML Oral Solution 5,400 *0 Sig: TAKE 45 ML BY MOUTH 4 TIMES DAILY documented in this encounter Plan of Treatment Upcoming Encounters Date Type Department Care Team (Late st Contact Info) Description 08/07/2023 2:50 PM EST [facility], [place] [address] [address] [facility] [address] [place] [address] [facility] [id number] 08/27/2023 2:00 PM EST Office Visit Neurology [facility] [address] [facility] [place], [place] [address] Leona Richardson PA-C [address] [facility] [place] [address] 08/29/2023 3:40 PM EST Office Visit Family Practice, [place] [address] [facility] [address] Fab Moran MD [address] [facility] [address] 10/10/2023 1:40 PM EST Office Visit Podiatry [facility] [address] [facility] [place] [address] Sandee Smith, DPM [address] [place] [address] 12/25/2023 4:00 PM EDT Office Visit Urology, [facility] [address] [facility] [place] [address] John Owen MD [address] [place] [address] [place] [address] Health Maintenance Due Date Last Done Comments [...] Depression Screening 09/12/2023 09/12/2022 HbA1c 10/21/2023 04/22/2023, 050 11/2022, 07/18/2022, Additional history exists GFR 04/22/2024 04/22/2023, 050 11/2022, 07/23/2022, Additional history exists Lipid Panel [...] filedocumented as of this encounter Care Teams Evp [employer] Experience Strategy Relationship Specialty Start Date End Date Fab Moran MD [address] [place] [address] PCP - General 05/05/00 documented as of this encounter
--- OUTSIDE RECORDS SUMMARY | 2023-10-05 04:38 | External Medical Summary | Summary of Care ---
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[facility]); Dermatitis; Petechiae Allergies Active Allergy Reactions Criticality Noted Date Comments Indomethacin 10/31/2000 resulted in seizures twice documented as of this encounter (statuses as of 08/30/2023) Medications Medication Sig Dispensed Refills Start Date [...] at bedtime 90 Capsule 3 01/02/2023 Active Divalproex Sodium 500 MG Oral Tablet [...] FOR CHOLESTEROL 90 Tablet 1 08/29/2023 Active documented as of this encounter (statuses as of 08/30/2023) Active Problems Problem Noted Date Diagnosed Date [...] 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 Overview: ICD-9 Code Update half-way current use of 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 therapy 0 08/30/2004 Overview: ICD-10 update of inactive term GENERALIZED CONVULSIVE EPILE PSY; WITHOUT MENTION OF INTRACTABLE EPILEPSY documented as of this encounter (statuses as of 08/30/2023) Resolved Problems Problem Noted Date Diagnosed Date [...] as of this encounter (statuses as of 08/30/2023) Immunizations Name Administration Dates Next Due COVID-19 mRNA, LNP-s, No Pre serve, 2-Dose Series ([employer]2S[employer]) 04/04/2021,03/11/2021 Pneumococcal Polysaccharide PPV23 (Pneumovax) 03/24/2013 Seasonal [...] on file documented as of this encounter Plan of Treatment Upcoming Encounters Date Type Department Care Team (Late st Contact Info) Description 09/16/2023 3:30 PM EST Anticoagulation Pharmacy, [place] [address] [place] [address] [facility] [address] [place] [address] 09/17/2023 3:20 PM EST Office Visit Neurology [facility] [address] [place] [address] Leona Richardson PA-C [address] [place] [address] 10/10/2023 1:40 PM EST Office Visit Podiatry [facility] [address] [place] [address] Sandee Smith DPM [address] [place] [address] 12/25/2023 4:00 PM EDT Office Visit Urology, [facility] [address] [facility] [place] [address] John Owen MD [address] [place] [address] [place] [address] 01/09/2024 2:20 PM EDT Office Visit [facility] [address] [place] [address] Fab Arroyo MD [address] [place] [address] Pending Results Name Type Priority Associated Diagnoses Date /Time HEMOGLOBIN A1C Lab Routine Type 2 diabetes mellitus with hemoglobin A1c goal of less than 8.0% ([facility]) 08/30/2023 2:44 PM EST COMPREHENSIVE METABOLIC PANEL Lab Routine Type 2 diabetes mellitus with hemoglobin A1c goal of less than 8.0% ([facility]) 08/30/2023 2:44 PM EST VALPROIC ACID LEVEL Lab Routine Generalized convulsive epilepsy without intractable epilepsy ([facility]) 08/30/2023 2:44 PM EST PHENYTOIN LEVEL Lab Routine Generalized convulsive epilepsy without intractable epilepsy ([facility]) 08/30/2023 2:44 PM EST CBC Lab Routine Dermatitis Petechiae 08/30/2023 2:44 PM EST Health Maintenance Due Date Last Done Comments [...] Diabetic Eye Exam 03/14/2021 03/14/2020 COVID-19 Vaccine ( - season) 2023 04/04/2021, 03/11/2021 Influenza Vaccine [...] Not on filedocumented as of this encounter Visit Diagnoses Diagnosis Type 2 diabetes mellitus with hemoglobin A1c goal of less than 8.0% (HCC) Generalized convulsive epilepsy without intractable epilepsy (HCC) Generalized convulsive epilepsy without mention of intractable epilepsy Dermatitis Contact dermatitis and other eczema, due to unspecified cause Petechiae Spontaneous ecchymoses documented in this encounter Care Teams Transaction Advisory Services Manager Relationship Specialty Start Date End Date Fab Arroyo MD [address] [place] [address] PCP - General 05/05/00 documented as of this encounter
--- OUTSIDE RECORDS SUMMARY | 2023-10-05 04:38 | External Medical Summary | Summary of Care ---
Author Name Unknown Organization [facility] Address [address] [place] [address] Phone [phone] Care Team Providers Care Turbine Room Attendant Name Role Phone Fab Arroyo MD Primary Care Provider +1- [phone] Reason for Visit * Reason Comments Outpatient Testing Encounter Details Date Type Department Care Team (Late st Contact Info) Description 08/28/2023 11:40 AM EST Laboratory Laboratory, [place] [address] [place] [address] [place], [facility] [address] [place] [address] [employer] Other*[id number]; Hepatic encephalopathy (HCC) Allergies Active Allergy Reactions Criticality Noted Date Comments Indomethacin 10/31/2000 resulted in seizures twice documented as of this encounter (statuses as of 08/28/2023) Medications Medication Sig Dispensed Refills Start Date [...] as needed-otc. 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 Overview: ICD-9 Code 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 0 08/30/2004 Overview: ICD-10 update of inactive term GENERALIZED CONVULSIVE EPILE PSY; WITHOUT MENTION OF INTRACTABLE EPILEPSY documented as of this encounter (statuses as of 08/28/2023) Resolved Problems Problem Noted Date Diagnosed Date [...] as of this encounter (statuses as of 08/28/2023) Immunizations Name Administration Dates Next Due COVID-19 [...] Care Team (Late st Contact Info) Description 08/29/2023 3:40 PM EST Office Visit [facility] [address] [facility] [address] Fab Arroyo MD [address] [facility] [address] 09/16/2023 3:30 PM EST Anticoagulation Pharmacy, [place] [address] [facility] [address] [facility] [address] [place] [address] 09/17/2023 3:20 PM EST [facility] [address] [place] [address] Leona Richardson PA-C [address] [place] [address] 10/10/2023 1:40 PM EST Office Visit Podiatry [facility] [address] [facility] [place] [address] Sandee Smith, DPM [address] [place] [address] 12/25/2023 4:00 PM EDT Office Visit Urology, [facility] [address] [place] [address] John Owen MD [address] [place] [address] [place] [phone] Pending Results Name Type Priority Associated Diagnoses Date /Time AMMONIA Lab Routine Hepatic encephalopathy (HCC) 08/28/2023 12:02 PM EST Scheduled Orders Name Type Priority Associated Diagnoses Orde r Schedule MYCODE SST1 Lab Routine [employer] Other*[id number] Ordered: 08/28/2023 MYCODE SST2 Lab Routine [employer] Other*[id number] Ordered: 08/28/2023 Health Maintenance Due Date Last Done Comments [...] as of this encounter Visit Diagnoses Diagnosis [employer] Other*[id number] Hepatic encephalopathy (HCC) Hepatic encephalopathy documented in this encounter Care Teams Turbine Room Attendant Relationship Specialty Start Date End Date Fab Arroyo MD [address] [place] [address] PCP - General 05/05/00 documented as of this encounter
--- OUTSIDE RECORDS SUMMARY | 2023-10-05 04:38 | External Medical Summary ---
Author Name Unknown Address Unknown Organization K01:[facility] - [address] [place] [address] Laboratory Report Ordering Provider Test Date Status DEAN RUDD 08/30/2023 14:44:45 Final Observation Date Value Abnormality Reference (Units ) Status Valproic Acid, level 08/30/2023 14:44:45 61 50-100 (ug/mL) Final Performing Location [facility] - [address] [place] [address]
--- OUTSIDE RECORDS SUMMARY | 2023-10-05 04:38 | External Medical Summary | Summary of Care ---
Author Name Unknown Organization [facility] Address [address] [place] [address] Phone [phone] Care Team Providers Care Geological Aide Name Role Phone Blaire Moran MD Primary Care Provider +1- [phone] Reason for Visit * Reason Comments eRx-Medication Refill Encounter Details Date Type Department Care Team (Late st Contact Info) Description 09/03/2023 Refill [facility] [address] [place] [address] Blaire Moran MD [address] [place] [address] Allergies Active Allergy Reactions Criticality Noted Date Comments Indomethacin 10/31/2000 resulted in seizures twice documented as of this encounter (statuses as of 09/03/2023) Medications Medication Sig Dispensed Refills Start Date [...] THE EVENING. 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 Overview: ICD-9 Code Update emt intermediate current use of 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 therapy 0 08/30/2004 Overview: ICD-10 update of inactive term GENERALIZED CONVULSIVE EPILE PSY; WITHOUT MENTION OF INTRACTABLE EPILEPSY documented as of this encounter (statuses as of 09/03/2023) Resolved Problems Problem Noted Date Diagnosed Date [...] as of this encounter (statuses as of 09/03/2023) Immunizations Name Administration Dates Next Due COVID-19 [...] encounter Miscellaneous Notes * Telephone Encounter - Blaire Moran MD - 09/03/2023 5:28 PM ESTSigned Prescriptions: Disp Refills Divalproex Sodium 500 MG Oral Tablet Delay*150 Ta*5 Sig: TAKE 2 TABLETS BY MOUTH IN THE MORNING, 1 TABLET AT 3PM, AND 2 TABLETS IN THE EVENING.Authorizing Provider:BLAIRE MORAN * Telephone Encounter - Hyacinth Lopez LPN - 09/03/2023 5:16 PM ESTPending Prescriptions: Disp Refills Divalproex Sodium 500 MG Oral Tablet Delay*150 Ta*0 Sig: TAKE 2 TABLETS BY MOUTH IN THE MORNING, 1 TABLET AT 3PM, AND 2 TABLETS IN THE EVENING. * Telephone Encounter - Ghassan Llanos - 09/03/2023 4:06 PM ESTPending Prescriptions: Disp Refills Divalproex Sodium 500 MG Oral Tablet Delay*150 Ta*0 Sig: TAKE 2TABLETS BY MOUTH IN THE MORNING, 1 TABLET AT 3PM, AND 2 TABLETS IN THE EVENING. documented in this encounter Plan of Treatment Upcoming Encounters Date Type Department Care Team (Late st Contact Info) Description 09/16/2023 3:30 PM EST [facility], [place] [address] [address] [facility] [address] [place], [facility] [address] [place] [address] 09/17/2023 3:20 PM EST Office Visit [facility] [address] [place], [place] [address] Leona Richardson PA-C [address] [place], [place] [address] 10/10/2023 1:40 PM EST Office Visit Podiatry [facility] [address] [place] [address] Sandee Smith DPM [address] [place] [address] 12/25/2023 4:00 PM EDT Office Visit Urology, [facility] [address] [place] [address] John Owen MD [address] [place] [address] [place] [phone] 01/09/2024 2:20 PM EDT Office Visit [facility] [address] [place] [address] Blaire Moran MD [address] [place] [address] Health Maintenance Due Date Last Done Comments [...] filedocumented as of this encounter Care Teams Geological Aide Relationship Specialty Start Date End Date Blaire Moran MD [address] [place] [address] PCP - General 05/05/00 documented as of this encounter
--- OUTSIDE RECORDS SUMMARY | 2023-10-05 04:38 | External Medical Summary | Summary of Care ---
Author Name Unknown Organization [facility] Address [address] [place] [address] Phone [phone] Care Team Providers Care Instant Powder Supervisor Name Role Phone Fab Moran MD Primary Care Provider +1- [phone] Reason for Visit * Reason Comments eRx-Medication Refill Encounter Details Date Type Department Care Team (Late st Contact Info) Description 08/28/2023 Refill [facility] [address] [place] [address] Fab Moran MD [address] [place] [address] Allergies Active Allergy Reactions Criticality Noted Date Comments Indomethacin 10/31/2000 resulted in seizures twice documented as of this encounter (statuses as of 08/29/2023) Medications Medication Sig Dispensed Refills Start Date [...] FOR CHOLESTEROL 90 Tablet 1 08/29/2023 Active Atorvastatin Calcium 80 MG Oral Tablet (Lipitor) TAKE 1 TABLET BY MOUTH ONCE DAILY FOR CHOLESTEROL 90 Tablet 3 09/05/2022 08/29/19 24 Discontinued documented as of this encounter (statuses as of 08/29/2023) Active Problems Problem Noted Date Diagnosed Date [...] 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 Overview: ICD-9 Code 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 0 08/30/2004 Overview: ICD-10 update of inactive term GENERALIZED CONVULSIVE EPILE PSY; WITHOUT MENTION OF INTRACTABLE EPILEPSY documented as of this encounter (statuses as of 08/29/2023) Resolved Problems Problem Noted Date Diagnosed Date [...] as of this encounter (statuses as of 08/29/2023) Immunizations Name Administration Dates Next Due COVID-19 [...] encounter Miscellaneous Notes * Telephone Encounter - Chito Alvarez [facility] - 08/29/2023 1:03 PM ESTSigned Prescriptions: Disp Refills Atorvastatin Calcium 80 MG Oral Tablet (Li*90 Tab*1 Sig: TAKE 1TABLET BY MOUTH ONCE DAILY FOR CHOLESTEROLAuthorizing Provider: FAB MORAN User: CHITO ALVAREZ documented in this encounter Plan of Treatment Upcoming Encounters Date Type Department Care Team (Late st Contact Info) Description 08/29/2023 3:40 PM EST Office Visit [facility] [address] [facility] [address] Fab Moran MD [address] [facility] [address] 09/16/2023 3:30 PM EST Anticoagulation Pharmacy, [employer] [address] [place] [address] [facility] [address] [place] [address] 09/17/2023 3:20 PM EST Office Visit Neurology [facility] [address] [facility] [place] [address] Leona Richardson PA-C [address] [facility] [place] [address] 10/10/2023 1:40 PM EST Office Visit Podiatry [facility] [address] [employer] [place] [address] Sandee Smith DP 132 [facility] [place] [address] 12/25/2023 4:00 PM EDT Office Visit Urology, [facility] [address] [address] [place] [address] John Owen MD 27 [facility] [address] [place] [phone] Health Maintenance Due Date Last Done Comments [...] Exam 03/14/2021 03/14/2020 COVID-19 Vaccine ( - 2023-24 season) 2023 04/04/2021, 03/11/2021 Influenza Vaccine (FLU [...] filedocumented as of this encounter Care Teams Instant Powder Supervisor Relationship Specialty Start Date End Date Fab Moran MD [address] [place] [address] PCP - General 05/05/00 documented as of this encounter
--- OUTSIDE RECORDS SUMMARY | 2023-10-05 04:38 | External Medical Summary ---
Author Name Unknown Address Unknown Organization : Laboratory Report Ordering Provider Test Date Status CAROLINE WILSON 08/07/2023 15:05:22 Final Therapeutic ranges for non-o perative patients:
Prophylaxsis/treatment of DVT: (Range:2.0-3.0)
Treatment of pulmonary embolism:(Range:2.0-3.0)
Prevention of systemic embolism from:
-tissue heart valves
-acute myocardial infarction
-valvular heart disease
-atrial fibrillation
(Range: 2.0-3.0)
Mechanical prosthetic valves: (Range: 2.5-3.5) Observation Date Value Abnormality Reference (Units ) Status INR in Capillary blood by Coagulation assay 08/07/2023 15:05:22 2.4 (INR) Final Performing Location
--- OUTSIDE RECORDS SUMMARY | 2023-10-05 04:38 | External Medical Summary ---
Author Name Unknown Address Unknown Organization K01:[facility]ATORY [facility] [place] - [address] [facility] [address] Laboratory Report Ordering Provider Test Date Status DEAN RUDD 08/30/2023 14:44:45 Final Observation Date Value Abnormality Reference (Units ) Status HbA1C 08/30/2023 14:44:45 10.5 Above high normal 4. 0-5.6 (%) Final The use of HbA1c to monitor glycemic status is based on normal hemoglobin and HbA composition. This test should not be used in patients with abnormal hemoglobin that affects the half life of the red blood cell or the in vivo glycation rates. Glucose, estimated average 08/30/2023 14:44:45 255 Above high normal <126 (mg/dL) Alejandro akers Performing Location [facility] - [address] [facility] [address] [facility] [address]
--- OUTSIDE RECORDS SUMMARY | 2023-10-05 04:38 | External Medical Summary | Summary of Care ---
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 Allergies Active Allergy Reactions Criticality Noted Date Comments Indomethacin 10/31/2000 resulted in seizures twice documented as of this encounter (statuses as of 08/07/2023) Medications Medication Sig Dispensed Refills Start Date [...] 01/02/2023 Active Tradjenta 5 MG Oral Tablet (linaGLIPtin)Indic [...] TIMES DAILY 5400 mL 5 08/02/2023 Active documented as of this encounter (statuses as of 08/07/2023) Active Problems Problem Noted Date Diagnosed Date [...] 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 Overview: ICD-9 Code 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 0 08/30/2004 Overview: ICD-10 update of inactive term GENERALIZED CONVULSIVE EPILE PSY; WITHOUT MENTION OF INTRACTABLE EPILEPSY documented as of this encounter (statuses as of 08/07/2023) Resolved Problems Problem Noted Date Diagnosed Date [...] as of this encounter (statuses as of 08/07/2023) Immunizations Name Administration Dates Next Due COVID-19 mRNA, LNP-s, No Pre serve, 2-Dose Series ([employer]) 04/04/2021,03/11/2021 Pneumococcal Polysaccharide PPV23 (Pneumovax) 03/24/2013 Seasonal [...] as of this encounter Progress Notes * Kristian Angel RPh - 08/07/2023 3:01 PM EST Medication Therapy Disease Management - Anticoagulation Patient: Eliseo Smith | : 1960 Subjective Patient-Reported Symptoms: Patient Findings Negatives: Signs/symptoms of thrombosis, Signs/symptoms of bleeding, Change in health, Change in alcohol use, Change in activity, Upcoming invasive procedure, Missed doses, Extra doses, Change in medications, Change in diet/appetite, Bruising Objective Current Warfarin Dose As of 08/07/2023 Warfarin maintenance plan: 7.5 mg (5 mg x 1.5) every Mon, Fri; 5 mg (5 mg x 1) all other days INR Result As of 08/07/2023 INR goal: 2.0-3.0 INR used for dosin.4 (08/07/2023) Assessment & Plan Warfarin Plan As of 08/07/2023 Full warfarin instructions: 7.5 mg every Mon, Fri; 5 mg all other days No change documented: Kristian Angel RPh Next INR check: 09/16/2023 Repeat PT/INR in 6 week(s) Weekly dose: not changed Additional Dosing Information: Kristian Angel [facility] Clinical Pharmacist 08/07/2023, 3:01 PM documented in this encounter Plan of Treatment Upcoming Encounters Date Type Department Care Team (Late st Contact Info) Description 08/27/2023 2:00 PM EST Office Visit Neurology [facility] [address] [facility] [place] [address] Leona Richardson PA-C [address] [facility] [place] [address] 08/29/2023 3:40 PM EST Office Visit [place] [address] [place] [address] Fab Arroyo MD [address] [place] [address] 09/16/2023 3:30 PM EST Anticoagulation Pharmacy, [place] [address] [place] [address] [facility] [address] [place] [address] 10/10/2023 1:40 PM EST Office Visit Podiatry [facility] [address] [facility] [place] [address] Sandee Smith DPM 132 [facility] [place] [address] 12/25/2023 4:00 PM EDT Office Visit Urology, [facility] 132 [facility] [place] [address] John Owen MD [facility] [address] [place] [address] Health Maintenance Due Date Last Done Comments [...] Comments INR FINGERSTICK, POINT OF CARE STAT 08/07/2023 3:05 PM EST 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 (deep vein thrombosis) Anticoagulation management encounter [facility] current use of 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 therapy documented in this encounter Results * INR FINGERSTICK, POINT OF CARE (08/07/2023 3:05 PM EST) Fingerstick INR 2.4 INR 4 3:06 PM EST [facility] Blood 08/07/2023 3:05 PM EST 08/07/2023 3:06 PM EST Narrative [facility] 56 - 08/07/2023 3:06 PM EST Therapeutic ranges for non-operative patients: Prophylaxsis/treatment of DVT: (Range:2.0-3.0) Treatment of pulmonary embolism:(Range:2.0-3.0) Prevention of systemic embolism from: -tissue heart valves -acute myocardial infarction -valvular heart disease -atrial fibrillation (Range: 2.0-3.0) Mechanical prosthetic valves: (Range: 2.5-3.5) Milvia Ram [facility] LAB POINT OF CARE TEST DOCKED DEVICE UNSOLICITED RESULTS [facility] [address] [place] [address] documented in this encounter Visit Diagnoses Diagnosis 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 (deep vein thrombosis)- Primary Personal history of venous thrombosis and embolism Anticoagulation management encounter Encounter for therapeutic drug monitoring [facility] current use of 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 therapy documented in this encounter Care Teams Group Leader Relationship Specialty Start Date End Date Fab Arroyo MD [address] [place] [address] PCP - General 05/05/00 documented as of this encounter"
--- OUTSIDE RECORDS SUMMARY | 2023-10-05 04:38 | External Medical Summary ---
Author Name Unknown Address Unknown Organization K01:[facility]ATORY [facility] [place] - [address] [place] [address] Laboratory Report Ordering Provider Test Date Status DEAN RUDD 08/28/2023 12:02:35 Final Observation Date Value Abnormality Reference (Units ) Status Ammonia 08/28/2023 12:02:35 142 Above upper panic limits 11-35 (umol/L) Final Performing Location [facility] - [address] [place] [address]
--- OUTSIDE RECORDS SUMMARY | 2023-10-05 04:38 | External Medical Summary | Summary of Care ---
Author Name Unknown Organization [facility] Address [address] [place] [address] Phone [phone] Care Team Providers Care Folding Machine Operator Name Role Phone Fab Arroyo MD Primary Care Provider +1- [phone] Reason for Visit * Reason Onset Date Comments Abnormal Test Results 08/29/2023 Encounter Details Date Type Department Care Team (Late st Contact Info) Description 08/29/2023 Telephone General Internal Medicine [facility] [address] [place] [address] Jae Oliver MD [address] [place] [address] Abnormal Test Results (/) Allergies Active Allergy Reactions Criticality Noted Date [...] 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 No other labs done. Has f/u with PCP today, will defer to visit with pcp today for further assessment. Dr. Cruz OLIVEIRA documented in this encounter Plan of Treatment Upcoming Encounters Date Type Department Care Team (Late st Contact Info) Description 08/29/2023 3:40 PM EST Office Visit [place] [address] [address] [facility] [phone] Fab Arroyo MD [address] [facility] [address] 09/16/2023 3:30 PM EST Anticoagulation Pharmacy, [place] [address] [address] [facility] [place] [address] [place], [facility] [address] [facility] [address] 09/17/2023 3:20 PM EST Office Visit Neurology [facility] [address] [facility] [place] [address] Leona Richardson PA-C [address] [facility] [address] 10/10/2023 1:40 PM EST Office Visit Podiatry [facility] [address] [facility] [place] [address] Sandee Smith, ANDREW [address] [facility] [place] [address] 12/25/2023 4:00 PM EDT Office Visit Urology, [facility] [place] [address] John Owen MD [address] [facility] [place] [address] [place] [phone] Health Maintenance Due Date Last Done Comments [...] filedocumented as of this encounter Care Teams Folding Machine Operator Relationship Specialty Start Date End Date Fab Arroyo MD [address] [place] [facility] [place] [address] PCP - General 05/05/00 documented as of this encounter
--- OUTSIDE RECORDS SUMMARY | 2023-10-05 04:38 | External Medical Summary | Summary of Care ---
Author Name Unknown Organization [facility] Address [address] [place] [address] Phone [phone] Care Team Providers Care Ladle Cleaner Name Role Phone Fab Moran MD Primary Care Provider +1- [phone] Reason for Visit * Reason Comments eRx-Medication Refill Encounter Details Date Type Department Care Team (Late st Contact Info) Description 08/21/2023 Refill [facility] [address] [place] [address] Fab Moran MD [address] [place] [address] Type 2 diabetes mellitus with hemoglobin A1c goal of less than 8.0% ([facility]) Allergies Active Allergy Reactions Criticality Noted Date Comments Indomethacin 10/31/2000 resulted in seizures twice documented as of this encounter (statuses as of 08/23/2023) Medications Medication Sig Dispensed Refills Start Date [...] once daily 180 Tablet 1 08/23/2023 Active Potassium Chloride ER 20 MEQ Oral Tablet Extended Release Take 2 tablets by mouth once daily 180 Tablet 3 08/22/2022 08/23/19 24 Discontinued Tradjenta 5 MG Oral Tablet (linaGLIPtin)Ind ications:Type 2 diabetes mellitus with hemoglobin A1c goal of less than 8.0% (HCC) Take 1 tablet by mouth once daily 90 Tablet 1 02/19/2023 08/23/19 24 Discontinued documented as of this encounter (statuses as of 08/23/2023) Active Problems Problem Noted Date Diagnosed Date [...] 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 Overview: ICD-9 Code Update assisted current use of 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 therapy 0 08/30/2004 Overview: ICD-10 update of inactive term GENERALIZED CONVULSIVE EPILE PSY; WITHOUT MENTION OF INTRACTABLE EPILEPSY documented as of this encounter (statuses as of 08/23/2023) Resolved Problems Problem Noted Date Diagnosed Date [...] as of this encounter (statuses as of 08/23/2023) Immunizations Name Administration Dates Next Due COVID-19 [...] encounter Miscellaneous Notes * Telephone Encounter - Regina Grewal, [facility] - 08/23/2023 7:18 AM ESTSigned Prescriptions: Disp Refills Tradjenta 5 MG Oral Tablet (linaGLIPtin) 90 Tab*1 Sig: Take 1 tablet by mouth once dailyAuthorizing Provider: FAB MORAN User: REGINA GREWALPotassium Chloride ER 20 MEQ Oral Tablet E*180 Ta*1 Sig: Take 2 tablets by mouth once dailyAuthorizing Provider: FAB MORAN User: REGINA GREWAL documented in this encounter Plan of Treatment Upcoming Encounters Date Type Department Care Team (Late st Contact Info) Description 08/29/2023 3:40 PM EST Office Visit [facility] [place] [address] [place] [facility] [place] [id number] Fab Moran MD [address] [place] [address] 09/16/2023 3:30 PM EST Anticoagulation Pharmacy, [place] [address] [place] [address] [facility] [address] [place] [address] 09/17/2023 3:20 PM EST Office Visit Neurology [facility] [address] [place] [address] Leona Richardson PA-C [address] [place] [address] 10/10/2023 1:40 PM EST Office Visit Podiatry [facility] [address] [place] [address] Sandee Smith DPM [address] [place] [address] 12/25/2023 4:00 PM EDT Office [facility], [facility] [place] [address] John Owen MD [address] [place] [address] Health Maintenance [...] A1c goal of less than 8.0% (HCC) documented in this encounter Care Teams Ladle Cleaner Relationship Specialty Start Date End Date Fab Moran MD [address] [place] [address] PCP - General 10/1/00 documented as of this encounter
--- OUTSIDE RECORDS SUMMARY | 2023-10-05 04:38 | External Medical Summary | Summary of Care ---
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 * Telephone Encounter - Jae Oliver MD - 08/29/2023 8:28 AM EST I was paged for critical value for ammonia "142" chart reviewed at that time, looks like chronically high ammonia. No other labs done. Has f/u with PCP today, will defer to visit with pcp today for further assessment. Dr. Cruz PAULSON documented in this encounter Plan of Treatment Upcoming Encounters Date Type Department Care Team (Late st Contact Info) Description 09/16/2023 3:30 PM EST Anticoagulation Pharmacy, [place] [address] [facility] [place] [id number] [facility] [address] [place] [facility] [place] [address] 09/17/2023 3:20 PM EST Office Visit [facility] [address] [facility] [place] [address] Leona Richardson PA-C [address] [facility] [place] [address] 10/10/2023 1:40 PM EST Office [facility] [address] [facility] [address] Sandee Smith, ANDREW [address] [place] [address] 12/25/2023 4:00 PM EDT Office Visit Urology, [facility] [address] [place] [address] John Owen MD [address] [place] [address] Health Maintenance Due Date Last Done Comments [...] 07/18/2022, Additional history exists GFR 04/22/2024 04/22/2023, 0 11/2022, 07/23/2022, Additional history exists Lipid Panel [...] filedocumented as of this encounter Care Teams Military Science Teacher Relationship Specialty Start Date End Date Fab Arroyo MD [address] [place] [facility] [place] [address] PCP - General 05/05/00 documented as of this encounter
--- OUTSIDE RECORDS SUMMARY | 2023-10-05 04:39 | External Medical Summary ---
Author Name Unknown Address Unknown Organization : Laboratory Report Ordering Provider Test Date Status CAROLINE WILSON 05/22/2023 15:56:41 Final Therapeutic ranges for non-o perative patients:
Prophylaxsis/treatment of DVT: (Range:2.0-3.0)
Treatment of pulmonary embolism:(Range:2.0-3.0)
Prevention of systemic embolism from:
-tissue heart valves
-acute myocardial infarction
-valvular heart disease
-atrial fibrillation
(Range: 2.0-3.0)
Mechanical prosthetic valves: (Range: 2.5-3.5) Observation Date Value Abnormality Reference (Units ) Status INR in Capillary blood by Coagulation assay 05/22/2023 15:56:41 2.6 (INR) Final Performing Location
--- OUTSIDE RECORDS SUMMARY | 2023-10-05 04:39 | External Medical Summary ---
Author Name Unknown Address Unknown Organization : Laboratory Report Ordering Provider Test Date Status CAROLINE WILSON 06/26/2023 15:25:56 Final Therapeutic ranges for non-o perative patients:
Prophylaxsis/treatment of DVT: (Range:2.0-3.0)
Treatment of pulmonary embolism:(Range:2.0-3.0)
Prevention of systemic embolism from:
-tissue heart valves
-acute myocardial infarction
-valvular heart disease
-atrial fibrillation
(Range: 2.0-3.0)
Mechanical prosthetic valves: (Range: 2.5-3.5) Observation Date Value Abnormality Reference (Units ) Status INR in Capillary blood by Coagulation assay 06/26/2023 15:25:56 2.6 (INR) Final Performing Location
--- OUTSIDE RECORDS SUMMARY | 2023-10-05 04:39 | External Medical Summary | Summary of Care ---
Author Name Unknown Organization [facility] Address [address] [place] [address] Phone [phone] Care Team Providers Care Rn Cardiovascular Name Role Phone Fab Arroyo MD Primary Care Provider +1- [phone] Reason for Visit * Reason Comments Dosage Adjustment In Person (Anticoag Cl inic) Encounter Details Date Type Department Care Team Description 05/22/2023 Anticoagulation Pharmacy, [address] [address] [facility] [address] [place] [address] 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 (deep vein thrombosis)*; Anticoagulation management encounter; retirement current use of 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 therapy Allergies Active Allergy Reactions Severity Noted Date Comments Indomethacin 10/31/2000 resulted in seizures twice documented as of this encounter (statuses as of 05/22/2023) Medications Medication Sig Dispensed Refills Start Date [...] before meals. 180 Tablet 3 03/19/2022 Active Tamsulosin HCl 0.4 MG Oral Capsule (Flomax)Indication s:Nephrolithiasis Take 1 capsule by mouth once daily 90 Capsule 3 05/30/2022 Active Warfarin Sodium 5 MG Oral Tablet [...] at bedtime 90 Capsule 3 01/02/2023 Active Lactulose 10 GM/15ML Oral Solution (Constulose) TAKE 45ML BY MOUTH FOUR TIMES DAILY 5400 mL 5 01/08/2023 Active Dilantin 100 MG Oral Capsule TAKE 4 CAPSULES BY MOUTH TWICE DAILY 240 Capsule 5 01/23/2023 Active Tradjenta 5 MG Oral Tablet (linaGLIPtin)Indic [...] 04/30/2023 Active Topiramate 200 MG Oral Tablet (topAMAX)Indicatio ns:Generalized convulsive epilepsy without intractable epilepsy (HCC) Take 1 tablet by mouth twice daily 180 Tablet 1 05/09/2023 Active documented as of this encounter (statuses as of 05/22/2023) Active Problems Problem Noted Date Liver failure without hepatic coma 08/09 Acute embolism and thrombosis of deep ve in of proximal lower extremity 08/09/2022 History of UTI 07/10/2022 BPH with obstruction/lower urinary tract symptoms 04/07/2021 Hepatic encephalopathy 12/14/2019 History of adenomatous polyp of colon Type 2 diabetes mellitus with hemoglobin A1c goal of less than 8.0% 08/12/2018 Absent kidney, acquired 01/08/2018 Venous insufficiency 04/30/2014 Dyslipidemia, goal LDL below 130 011 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 Overview: ICD-9 Code 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 08/30/2004 Overview: ICD-10 update of inactive term GENERALIZED CONVULSIVE EPILEPSY; WITHOUT MENTION OF INTRACTABLE EPILEPSY documented as of this encounter (statuses as of 05/22/2023) Resolved Problems Problem Noted Date Resolved Date Metabolic acidosis with respiratory alkalosis 07/25/2017 DVT (deep venous thrombosis) (HCC) (aka DVT (DEEP VENOUS THROMBOSIS) (HCC)) 03/16/2015 07/25/2017 Stasis dermatitis of both legs 04/30/2014 0 01/15/2017 Lymphedema of leg 04/30/2014 01/15/2017 Spasm of muscle 04/18/2012 01/15/2017 Backache 04/18/2012 01/15/2017 Obesity, Class II, BMI 35-39.9, isolated (see ac tual BMI) 01/16/2010 01/15/2017 Overview: Per Obesity Protocol, #19 Benign neoplasm of colon 08/05/2009 019 Overview: tubular adenoma,, f/u in one year Benign neoplasm of colon 02/22/2009 019 Overview: 22 polyps , 1 tubulo-villous adenoma, f/u in 6 months DVT (deep venous thrombosis) 03/09/200810/2018 ADVANCE DIRECTIVE INFORMATION 08/03/2005 Overview: No, Advance Directive brochure offered , patient declined. Gouty arthropathy 01/11/2005 05/19/2009 Overview: ICD-9 Code Update ICD-10 update of inactive term Anticoagulation management encounter 08/28/2004 08/12/2018 DEEP PHLEBITIS-LEG NEC 08/28/2004 8 Convulsions 11/24/2001 01/15/2008 Overview: ICD-10 update of inactive term ACUTE PHARYNGITIS 07/15/2001 01/13/2007 ACUTE URI NOS 07/15/2001 01/13/2007 FOOT PAIN 10/31/2000 01/13/2007 ELECTROLYT-FLUID DIS NEC 01/12/2000 008 Overview: glucose intolerance Dyslipidemia, goal to be determined 07/05/2010 documented as of this encounter (statuses as of 05/22/2023) Immunizations Name Administration Dates Next Due COVID-19 [...] drink = 0.6 oz pur e alcohol) Food Insecurity Answer Date Recorded Within the past 12 months, y ou worried that your food would run out before you got money to buy more. Never true 10/20/2019 Within the past 12 months, t he food you bought just didn't last and you didn't have money to get more. Never true 10/20/2019 Sex Assigned at Date Recorded Male 11/13/2018 3:25 PM E DT Job Start Date Occupation Industry Not on file Not on file Not on file documented as of this encounter Progress Notes * Milvia Ram RPh - 05/22/2023 3:52 PM EDT Medication Therapy Disease Management - Anticoagulation Patient: Eliseo Smith | : 1960 Subjective Patient-Reported Symptoms: Patient Findings Negatives: Signs/symptoms of thrombosis, Signs/symptoms of bleeding, Change in health, Change in alcohol use, Change in activity, Upcoming invasive procedure, Missed doses, Extra doses, Change in medications, Change in diet/appetite, Bruising Objective Current Warfarin Dose As of 05/22/2023 Warfarin maintenance plan: 7.5 mg (5 mg x 1.5) every Mon, Fri; 5 mg (5 mg x 1) all other days INR Result As of 05/22/2023 INR goal: 2.0-3.0 INR used for dosin.6 (05/22/2023) Assessment & Plan Warfarin Plan As of 05/22/2023 Full warfarin instructions: 7.5 mg every Mon, Fri; 5 mg all other days Next INR check: 06/26/2023 Repeat PT/INR in 5 week(s) Weekly dose: not changed Additional Dosing Information: Milvia Ram RPh Clinical Pharmacist 05/22/2023, 3:52 PM documented in this encounter Plan of Treatment Upcoming Encounters Date Type Specialty Care Team Description 06/18/2023 Office Visit Podiatry Sandee Smith, DPDoug [address] [place] [address] 06/26/2023 Anticoagulation Pharmacy [facility] [address] [place] [address] 07/16/2023 Telemedicine Urology John Owen MD [address] [place] [phone] 7, Telemed [facility] Urology Ex Rm [address] [place] [address] 08/27/2023 Office Visit Neurology Leona Richardson PA-C [address] [place] [address] 08/29/2023 Office Visit Family Medicine Fab Arroyo MD [address] [place] [address] Health Maintenance Due Date Last Done Comments HIV Screening 1973 Zoster Vaccines (1 of 2) 2008 COLONOSCOPY-EVERY 2 YRS AGES 18-100 03/01/2013 03/01/2011, 08/30/2009, 02/22/2009 Pneumococcal Vaccine: Pediatrics (0 to 5 Years) and At-Risk Patients (6 to 64 Years) (2 - PCV) 03/24/2014 03/24/2013 Hepatitis B (1 of 3 - Risk 3-dose series) 2018 Diabetic Foot Exam 03/03/2021 03/03/2020 DIABETES-EYE EXAM 03/14/2021 03/14/2020 COVID-19 Vaccine (3 - 2022- [...] Comments INR FINGERSTICK, POINT OF CARE STAT 05/22/2023 3:56 PM EDT 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 (deep vein thrombosis) Anticoagulation management encounter 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 documented in this encounter Results * INR FINGERSTICK, POINT OF CARE (05/22/2023 3:56 PM EDT) Fingerstick INR 2.6 INR 3:58 PM EDT [facility] Blood 05/22/2023 3:56 PM EDT 05/22/2023 3:58 PM EDT Narrative [facility] - 05/22/2023 3:58 PM EDT Therapeutic ranges for non-operative patients: Prophylaxsis/treatment of DVT: (Range:2.0-3.0) Treatment of pulmonary embolism:(Range:2.0-3.0) Prevention of systemic embolism from: -tissue heart valves -acute myocardial infarction -valvular heart disease -atrial fibrillation (Range: 2.0-3.0) Mechanical prosthetic valves: (Range: 2.5-3.5) Milvia Ram [facility] POINT OF CARE TEST DOCKED DEVICE UNSOLICITED RESULTS [facility] [address] [place] [address] documented in this encounter Visit Diagnoses Diagnosis 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 (deep vein thrombosis)- Primary Personal history of venous thrombosis and embolism Anticoagulation management encounter Encounter for therapeutic drug monitoring 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 documented in this encounter Care Teams Rn Cardiovascular Relationship Specialty Start Date End Date Fab Arroyo MD [address] [place] [phone] PCP - General 05/05/00 documented as of this encounter"
--- OUTSIDE RECORDS SUMMARY | 2023-10-05 04:39 | External Medical Summary | Summary of Care ---
Author Name Unknown Organization [facility] Address [address] [place] [address] Phone [phone] Care Team Providers Care Machine Feed Operator Name Role Phone Blaire Moran MD Primary Care Provider +1- [phone] Reason for Visit * Reason Comments eRx-Medication Refill Encounter Details Date Type Department Care Team (Late st Contact Info) Description 05/29/2023 Refill [facility] [address] [place] [address] Blaire Moran MD [address] [place] [address] Nephrolithiasis Allergies Active Allergy Reactions Criticality Noted Date Comments Indomethacin 10/31/2000 resulted in seizures twice documented as of this encounter (statuses as of 05/30/2023) Medications Medication Sig Dispensed Refills Start Date [...] 01/23/2023 Active Tradjenta 5 MG Oral Tablet (linaGLIPtin)Ind [...] once daily 90 Capsule 3 05/30/2023 Active Tamsulosin HCl 0.4 MG Oral Capsule (Flomax)Indicati ons:Nephrolithia sis Take 1 capsule by mouth once daily 90 Capsule 3 05/30/2022 05/30/20 23 Discontinued documented as of this encounter (statuses as of 05/30/2023) Active Problems Problem Noted Date Diagnosed Date [...] 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 Overview: ICD-9 Code 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 0 08/30/2004 Overview: ICD-10 update of inactive term GENERALIZED CONVULSIVE EPILE PSY; WITHOUT MENTION OF INTRACTABLE EPILEPSY documented as of this encounter (statuses as of 05/30/2023) Resolved Problems Problem Noted Date Diagnosed Date [...] as of this encounter (statuses as of 05/30/2023) Immunizations Name Administration Dates Next Due COVID-19 [...] Recorded PHQ Adult Total Score 0 09/12/2022 Sex and Gender Information Value Date Recorded Sex Assigned at Male 11/13/2018 3:25 PM EDT Gender Identity Male 11/13/2018 3:25 PM EDT Sexual Orientation Straight 11/13/2018 3: 25 PM EDT Job Start Date Occupation Industry Not on file Not on file Not on file documented as of this encounter Miscellaneous Notes * Telephone Encounter - Sandy Petit RPh - 05/30/2023 12:56 PM EDTSigned Prescriptions: Disp Refills Tamsulosin HCl 0.4 MG Oral Capsule (Flomax)90 Cap*3 Sig: Take 1 capsule by mouth once dailyAuthorizing Provider: BLAIRE MORAN User: SANDY PETIT-- documented in this encounter Plan of Treatment Upcoming Encounters Date Type Department Care Team (Late st Contact Info) Description 06/18/2023 1:40 PM EST Office Visit Podiatry [facility] [address] [place] [address] Sandee Smith DPM [address] [place] [address] 06/26/2023 3:50 PM EST Anticoagulation Pharmacy, [place] [address] [place] [facility] [place] [place] [phone] [facility] [address] [place] [phone] 07/16/2023 4:15 PM EST Telemedicine Urology [facility] [address] [place] [address] John Owen MD [address] [place] [address] 7, Telemed [facility] Urology Ex Rm [address] [place] [address] 08/27/2023 2:00 PM EST Office Visit Neurology [facility] [address] [facility] [place] [address] Leona Richardson PA-C [address] [facility] [place] [address] 08/29/2023 3:40 PM EST Office Visit [facility] [address] [place] [phone] Blaire Moran MD [address] [place] [address] Health Maintenance Due Date Last Done Comments [...] EXAM 03/14/2021 03/14/2020 COVID-19 Vaccine (3 - season) [...] as of this encounter Visit Diagnoses Diagnosis Nephrolithiasis Calculus of kidney documented in this encounter Care Teams Machine Feed Operator Relationship Specialty Start Date End Date Blaire Moran MD [address] [place] [address] PCP - General 05/05/00 documented as of this encounter
--- OUTSIDE RECORDS SUMMARY | 2023-10-05 04:39 | External Medical Summary | Summary of Care ---
Author Name Unknown Organization [facility] Address [address] [place] [address] Phone [phone] Care Team Providers Care Him Analyst Name Role Phone Fab Arroyo MD Primary Care Provider +1- [phone] Reason for Visit * Reason Comments Dosage Adjustment In Person (Anticoag Cl inic) Encounter Details Date Type Department Care Team (Latest Contact Info) Description 06/26/2023 3:50 PM EST Anticoagulation Pharmacy, [address] [address] [facility] [address] [place] [address] 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 (deep vein thrombosis)*; Anticoagulation management encounter; half-way current use of 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 therapy Allergies Active Allergy Reactions Criticality Noted Date Comments Indomethacin 10/31/2000 resulted in seizures twice documented as of this encounter (statuses as of 06/26/2023) Medications Medication Sig Dispensed Refills Start Date [...] once daily 90 Capsule 3 05/30/2023 Active documented as of this encounter (statuses as of 06/26/2023) Active Problems Problem Noted Date Diagnosed Date [...] as of this encounter (statuses as of 06/26/2023) Resolved Problems Problem Noted Date Diagnosed Date [...] as of this encounter (statuses as of 06/26/2023) Immunizations Name Administration Dates Next Due COVID-19 mRNA, LNP-s, No Pre serve, 2-Dose Series (AeroFS) 04/04/2021,03/11/2021 Pneumococcal Polysaccharide PPV23 (Pneumovax) 03/24/2013 Seasonal [...] Progress Notes * Kristian Angel RPh - 06/26/2023 3:21 PM EST Medication Therapy Disease Management - Anticoagulation Patient: Eliseo Smith | : 1960 Subjective Patient-Reported Symptoms: Patient Findings Negatives: Signs/symptoms of thrombosis, Signs/symptoms of bleeding, Change in health, Change in alcohol use, Change in activity, Upcoming invasive procedure, Missed doses, Extra doses, Change in medications, Change in diet/appetite, Bruising Objective Current Warfarin Dose As of 06/26/2023 Warfarin maintenance plan: 7.5 mg (5 mg x 1.5) every Mon, Fri; 5 mg (5 mg x 1) all other days INR Result As of 06/26/2023 INR goal: 2.0-3.0 INR used for dosin.6 (06/26/2023) Assessment & Plan Warfarin Plan As of 06/26/2023 Full warfarin instructions: 7.5 mg every Mon, Fri; 5 mg all other days No change documented: Kristian Angel RPh Next INR check: 08/07/2023 Repeat PT/INR in 6 week(s) Weekly dose: not changed Additional Dosing Information: Kristian Angel [facility] Clinical Pharmacist 06/26/2023, 3:21 PM documented in this encounter Plan of Treatment Upcoming Encounters Date Type Department Care Team (Late st Contact Info) Description 07/09/2023 9:40 AM EST Office Visit Podiatry [facility] [address] [place] [address] Sandee Smith DPM [address] [place] [address] 07/16/2023 4:15 PM EST Telemedicine Urology Lakeisha Rivas [address] [place] [address] John Owen MD [address] [place] [address] [place] [address] 7, Telemed [facility]rology Ex Rm [address] [place] [address] 08/07/2023 2:50 PM EST Anticoagulation [facility], [place] [address] [place] [address] [facility] [address] [place] [address] 08/27/2023 2:00 PM EST Office Visit Neurology [facility] [address] [place] [address] Leona Richardson PA-C [address] [place] [address] 08/29/2023 3:40 PM EST Office Visit Family [facility], [place] [address] [place] [id number] Fab Arroyo MD [address] [place] [address] Health Maintenance Due Date Last Done Comments [...] Comments INR FINGERSTICK, POINT OF CARE STAT 06/26/2023 3:25 PM EST 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 (deep vein thrombosis) Anticoagulation management encounter half-way current use of 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 therapy documented in this encounter Results * INR FINGERSTICK, POINT OF CARE (06/26/2023 3:25 PM EST) Fingerstick INR 2.6 INR 3:28 PM EST [facility] Blood 06/26/2023 3:25 PM EST 06/26/2023 3:27 PM EST Narrative [facility] 56- - 06/26/2023 3:28 PM EST Therapeutic ranges for non-operative patients: Prophylaxsis/treatment of DVT: (Range:2.0-3.0) Treatment of pulmonary embolism:(Range:2.0-3.0) Prevention of systemic embolism from: -tissue heart valves -acute myocardial infarction -valvular heart disease -atrial fibrillation (Range: 2.0-3.0) Mechanical prosthetic valves: (Range: 2.5-3.5) Milvia Ram [facility] LAB POINT OF CARE TEST DOCKED DEVICE UNSOLICITED RESULTS [facility] [address] [place] [id number] documented in this encounter Visit Diagnoses Diagnosis 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 (deep vein thrombosis)- Primary Personal history of venous thrombosis and embolism Anticoagulation management encounter Encounter for therapeutic drug monitoring half-way current use of 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 therapy documented in this encounter Care Teams Him Analyst Relationship Specialty Start Date End Date Fab Arroyo MD [address] [place] [address] PCP - General 05/05/00 documented as of this encounter"
--- OUTSIDE RECORDS SUMMARY | 2023-10-05 04:39 | External Medical Summary | Summary of Care ---
Author Name Unknown Organization [facility] Address [address] [place] [address] Phone [phone] Care Team Providers Care Box Stacker Name Role Phone Fab Arroyo MD Primary Care Provider [phone]- [phone] Reason for Visit * Reason Comments Follow Up F/u routine nail tri mming Last A1C 9.5 04/22/2023 * Evaluate & Treat - Unlimited Visits (Within 10 days (routine)) - Authorized Specialty Diagnoses / Procedures Referred By Dorita t Referred To Contact Podiatry Diagnoses Type 2 diabetes mellitus with hemoglobin A1c goal of less than 8.0% (HCC) Fab Arroyo MD [address] [place] [address] Referral ID Status Reason Start Date Expiration Date Visits Requested Visits Authorized [id number] Authorized Specialty Services Required 06/07/[phone] Encounter Details Date Type Department Care Team (Latest Contact Info) Description 07/09/2023 9:40 AM EST Office Visit Podiatry [facility] [address] [place] [address] Sandee Smith DPM [address] [place] [address] Onychomycosis*; Type 2 diabetes mellitus with hemoglobin A1c goal of less than 8.0% (HCC); [facility] current use of 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 therapy; Lymphedema Allergies Active Allergy Reactions Criticality Noted Date Comments Indomethacin 10/31/2000 resulted in seizures twice documented as of this encounter (statuses as of 07/09/2023) Medications Medication Sig Dispensed Refills Start Date [...] TIMES DAILY 5400 mL 5 01/08/2023 Active Tradjenta 5 MG Oral Tablet (linaGLIPtin)Indic [...] TWICE DAILY 240 Capsule 5 07/03/2023 Active documented as of this encounter (statuses as of 07/09/2023) Active Problems Problem Noted Date Diagnosed Date [...] 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 Overview: ICD-9 Code Update 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 current use of 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 therapy 0 08/30/2004 Overview: ICD-10 update of inactive term GENERALIZED CONVULSIVE EPILE PSY; WITHOUT MENTION OF INTRACTABLE EPILEPSY documented as of this encounter (statuses as of 07/09/2023) Resolved Problems Problem Noted Date Diagnosed Date [...] as of this encounter (statuses as of 07/09/2023) Immunizations Name Administration Dates Next Due COVID-19 [...] as of this encounter Progress Notes * Sandee Smith DPM - 07/09/2023 9:11 AM EST Podiatry Established Patient Note [facility] Name: Eliseo Smith : 1960 Date: 07/09/2023 CHIEF COMPLAINT: Diabetic Nail Care HISTORY OF PRESENT ILLNESS: This patient is a 62 year old male who presents today for Diabetic NailCare. He has a history of lymphedema and blood clots. He is on a blood thinner and unable to trim his nails. He denies any pain. Denies any other complaints. Date of last PCP visit: 04/22/2023 Past Medical History: Diagnosis Date Benign neoplasm [...] KNEE SURGERY NEC Knee/Leg Other Procedures Unlisted Family History Problem Relation Age of Onset Heart Disorder Mother massive VA age 54, had breast Ca Cancer Mother breast Diabetes Father Arthritis Father crippling arthritis Hypertension Sister Endocrine Disorder Brother hyperlipidemia Endocrine Disorder Sister hyperlipidemia Social History Socioeconomic History Marital status: Single Spouse name: Not on file Number of children: Not on file Years of education: Not on file Highest education level: Not on file Occupational History Not on file Social Needs Financial resource strain: Not on file Food insecurity Worry: Never true Inability: Never true Transportation needs Medical: Not on file Non-medical: Not on file Tobacco Use Smoking status: Never Smoker Smokeless tobacco: Never Used Substance and Sexual Activity Alcohol use: No Drug use: No Sexual activity: Never Lifestyle Physical activity Days per week: Not on file Minutes per session: Not on file Stress: Not on file Relationships Social connections Talks on phone: Not on file Gets together: Not on file Attends taoism service: Not on file Active member of club or organization: Not on file Attends meetings of clubs or organizations: Not on file Relationship status: Not on file Intimate partner violence Fear of current or ex partner: Not on file Emotionally abused: Not on file Physically abused: Not on file Forced sexual activity: Not on file Other Topics Concern Service Not Asked Blood Transfusions Not Asked Caffeine Concern Not Asked Occupational Exposure Not Asked Hobby Hazards Not Asked Sleep Concern Not Asked Stress Concern Not Asked Weight Concern Not Asked Special Diet Not Asked Back Care Not Asked Exercise Not Asked Bike Helmet Not Asked Seat Belt Yes Self-Exams Not Asked Social History Narrative Not on file Vaping/E-Cigarette Use Vaping/E-Cigarette Use Never User Vaping/E-Cigarette Substances Vaping/E-Cigarette Devices Current Outpatient Medications Medication Sig Dispense Refill CALTRATE 600 + D 600-125 MG-IU PO TABS One tablet bid 60 0 VITAMIN D 1000 UNIT PO TABS one tab by mouth daily docusate sodium (COLACE) 100 MG Capsule Take 1 Cap by mouth 2 times a day. 60 Cap 5 gabapentin (NEURONTIN) 100 MG Capsule Take 1 Capsule by mouth in the morning and 1 Capsule before bedtime. Tab-A-Rory Oral Tablet Take 1 tablet by mouth once daily 90 Tab 5 Lidocaine 5 % External Ointment Apply 1 Film topically to affected area daily. Apply to legs as needed (Patient not taking: Reported on 04/22/2023) Loratadine 10 MG Oral Tablet (Claritin) Take by mouth 1 Tablet in the morning. x1-2 wks then as needed-otc. 30 Tablet 0 glipiZIDE 5 MG Oral Tablet (Glucotrol) Take 1 tab by mouth by mouth twice per day before meals. 180Tablet 3 Warfarin Sodium 5 MG Oral Tablet (Coumadin) TAKE 1 TO 1 & 1/2 (ONE TO ONE & ONE- HALF) TABLETS BY MOUTH ONCE DAILY DIRECTED BY COUMADIN CLINIC 135 Tablet 3 glipiZIDE 10 MG Oral Tablet (Glucotrol) Take 1 Tablet by mouth in the morning and 1 Tablet before bedtime. 30 minutes before a meal. 180 Tablet 3 Potassium Chloride ER 20 MEQ Oral Tablet Extended Release Take 2 tablets by mouth once daily 180 Tablet 3 Atorvastatin Calcium 80 MG Oral Tablet (Lipitor) TAKE 1 TABLET BY MOUTH ONCE DAILY FOR CHOLESTEROL 90 Tablet 3 Furosemide 20 MG Oral Tablet (Lasix) TAKE 1 TABLET BY MOUTH ONCE DAILY FOR FLUID 90 Tablet 3 Gabapentin 400 MG Oral Capsule (Neurontin) Take 1 capsule by mouth at bedtime 90 Capsule 3 Lactulose 10 GM/15ML Oral Solution (Constulose) TAKE 45ML BY MOUTH FOUR TIMES DAILY 5400 mL 5 Tradjenta 5 MG Oral Tablet (linaGLIPtin) Take 1 tablet by mouth once daily 90 Tablet 1 Divalproex Sodium 500 MG Oral Tablet Delayed Release (Depakote DR) TAKE 2 TABLET BY MOUTH IN THE MORNING, 1 AT 3PM, AND 2 IN THE EVENING 150 Tablet 5 Allopurinol 300 MG Oral Tablet (Zyloprim) TAKE 1 & 1/2 (ONE & ONE-HALF) TABLETS BY MOUTH ONCE DAILY 135 Tablet 2 Finasteride 5 MG Oral Tablet (Proscar) TAKE 1 TABLET BY MOUTH IN THE MORNING 90 Tablet 0 Topiramate 200 MG Oral Tablet (topAMAX) Take 1 tablet by mouth twice daily 180 Tablet 1 Tamsulosin HCl 0.4 MG Oral Capsule (Flomax) Take 1 capsule by mouth once daily 90 Capsule 3 Dilantin 100 MG Oral Capsule TAKE 4 CAPSULES BY MOUTH TWICE DAILY 240 Capsule 5 No current facility-administered medications for this visit. ALLERGIES: Review of patient's allergies indicates: Allergen Reactions Indomethacin resulted in seizures twice REVIEW OF SYSTEMS: CONSTITUTIONAL: No change in weight, No weakness, No fatigue and No fevers, sweats, or chills EYE: No recent significant change in vision and No eye pain, redness, discharge EARS: No ear pain and No recent change in hearing NOSE: No history of frequent colds or sinusitis and No nasal stuffiness PULMONARY: No cough, sputum, or hemoptysis and No recent change in breathing CARDIOVASCULAR: No chest pain and No shortness of breath EXTREMITIES: Lymphedema noted SKIN/INTEGUMENTARY: No rash and No itching NEUROLOGIC: Normal balance, No headaches, No seizures and No weakness PSYCHIATRIC: No depression, No anxiety and No psychosis FOCUSED PODIATRIC EXAM: Vitals: There were no vitals filed for this visit. General: Patient is awake alert oriented to person place time. No apparent distress. Vascular: DP/PT pulses palpable, ileana. CFT < 3 sec 1-5, ileana. Edema noted, ileana. Temperature gradient is normal warm to cold, ileana. Neurologic: Protective sensation intact to light touch, ileana. Sensation to sharp/dull is intact, ileana. There is no babinski response elicited, ileana. Ankle clonus is absent, ileana. Dermatological: Skin is normal in appearance with no open lesions or interdigital macerations, ileana. Nails 1-5, ileana are normal in thickness and elongated. Pedal hair is noted, ileana. Musculoskeletal: No POP noted, ileana. No pain with active or passive ROM of the digits or ankle joint, ileana. Muscle strength is 5/5 for all muscle groups of the lower extremity, ileana. DIAGNOSTIC STUDIES: None Class Findings for Routine Foot Care Class A Findings: None Class B Findings: Advanced trophic changes (at least three of the following): hair growth (decreaseor absence), nail changes (thickening) and skin texture (thin, shiny) Class C Findings: Edema and Paresthesia (abnormal spontaneous sensations in feet) Modifier: Q9 - 1 Class B Finding and 2 Class C Findings ASSESSMENT: 1. DM2 2. 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 Elongated nails PLAN: - Discussed with pt the importance of maintaining a controlled blood sugar and checking his feet daily - Nails 1-5, ileana were trimmed with a nail nipper - Continue wearing good, supportive shoes. - Pt to RTC in 3 months for further care. Instructed pt to call sooner with any problems or questions. Sandee Smith DPM documented in this encounter Nursing Notes * Caterina Bains LPN - 07/09/2023 9:11 AM EST F/u routine nail trimming Last A1C 9.5 04/22/2023 Patient denies any issues or pain today documented in this encounter Plan of Treatment Upcoming Encounters Date Type Department Care Team (Late st Contact Info) Description 07/16/2023 4:15 PM EST Telemedicine Urology Lakeisha Rivas [address] [place] [address] John Owen MD [address] [place] [address] 7, Telemed [facility] Ex [address] [place] [address] 08/07/2023 2:50 PM EST Anticoagulation Pharmacy, [address] [place] [address] [place] [address] [place] [facility] [place] [address] 08/27/2023 2:00 PM EST Office Visit Neurology [facility] [address] [facility] [place] [address] Leona Richardson PA-C [address] [facility] [place] [address] 08/29/2023 3:40 PM EST Office Visit [facility], [place] [address] [facility] [phone] Fab Arroyo MD [address] [place] [facility] [place] [address] 10/10/2023 1:40 PM EST Office Visit Podiatry [facility] [address] [place] [address] Sandee Smith DPM [address] [place] [address] Scheduled Referrals Name Type Priority Associated Diagnoses Orde r Schedule PODIATRY REFERRAL OP Referral Within 10 days (routine) Type 2 diabetes mellitus with hemoglobin A1c goal of less than 8.0% (HCC) Ordered: 06/07/2023 Health Maintenance Due Date Last Done Comments [...] Exam 03/14/2021 03/14/2020 COVID-19 Vaccine (3 - 2022-24 season) 2023 04/04/2021, 03/11/2021 Influenza Vaccine (FLU [...] as of this encounter Visit Diagnoses Diagnosis Onychomycosis- Primary Dermatophytosis of nail Type 2 diabetes mellitus with hemoglobin A1c goal of less than 8.0% (HCC) [facility] current use of 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 therapy Lymphedema Other lymphedema documented in this encounter Care Teams Box Stacker Relationship Specialty Start Date End Date Fab Arroyo MD [address] [place] [facility] [place] [address] PCP - General 05/05/00 documented as of this encounter
--- OUTSIDE RECORDS SUMMARY | 2023-10-05 04:39 | External Medical Summary | Summary of Care ---
Author Name Unknown Organization [facility] Address [address] [place] [address] Phone [phone] Care Team Providers Care Amusement Equipment Operator Name Role Phone Blaire Moran MD Primary Care Provider +1- [phone] Reason for Visit * Reason Comments eRx-Medication Refill Encounter Details Date Type Department Care Team (Late st Contact Info) Description 07/03/2023 Refill [facility] [address] [place] [address] Blaire Moran MD [address] [place] [address] Allergies Active Allergy Reactions Criticality Noted Date Comments Indomethacin 10/31/2000 resulted in seizures twice documented as of this encounter (statuses as of 07/03/2023) Medications Medication Sig Dispensed Refills Start Date [...] 01/08/2023 Active Tradjenta 5 MG Oral Tablet (linaGLIPtin)Ind [...] TWICE DAILY 240 Capsule 5 07/03/2023 Active Dilantin 100 MG Oral Capsule TAKE 4 CAPSULES BY MOUTH TWICE DAILY 240 Capsule 5 01/23/2023 07/03/20 23 Discontinued documented as of this encounter (statuses as of 07/03/2023) Active Problems Problem Noted Date Diagnosed Date [...] as of this encounter (statuses as of 07/03/2023) Resolved Problems Problem Noted Date Diagnosed Date [...] as of this encounter (statuses as of 07/03/2023) Immunizations Name Administration Dates Next Due COVID-19 mRNA, LNP-s, No Pre serve, 2-Dose Series (Acertiv) 04/04/2021,03/11/2021 Pneumococcal Polysaccharide PPV23 (Pneumovax) 03/24/2013 Seasonal [...] Telephone Encounter - Blaire Moran MD - 07/03/2023 2:57 PM ESTSigned Prescriptions: Disp Refills Dilantin 100 MG Oral Capsule 240 Ca*5 Sig: TAKE 4 CAPSULES BY MOUTH TWICE DAILYAuthorizing Provider: BLAIRE MORAN * Telephone Encounter - Hyacinth Lopez LPN - 07/03/2023 2:37 PM ESTPending Prescriptions: Disp Refills Dilantin 100 MG Oral Capsule 240 Ca*0 Sig: TAKE 4 CAPSULES BY MOUTH TWICE DAILY * Telephone Encounter - Ghassan Llanos - 07/03/2023 1:19 PM ESTPending Prescriptions: Disp Refills Dilantin 100 MG Oral Capsule 240 Ca*0 Sig: TAKE 4 CAPSULES BY MOUTH TWICE DAILY documented in this encounter Plan of Treatment Upcoming Encounters Date Type Department Care Team (Late st Contact Info) Description 07/09/2023 9:40 AM EST Office Visit Podiatry [facility] [address] [place] [address] Sandee Smith, Doug [address] [place] [address] 07/16/2023 4:15 PM EST Telemedicine Urology Lakeisha Rivas [address] [place] [address] [place] [address] John Owen MD [address] [place] [address] [place] [address] 7, Telemed [facility] Urology Ex [address] [place] [address] 08/07/2023 2:50 PM EST [facility]tico[facility] Pharm[facility], [place] [address] [facility] [address] [place] [address] [facility] [address] 08/27/2023 2:00 PM EST Office Visit Neurology [facility] [place] [address] [facility] [place] [address] Leona Richardson PA-C [address] [facility] [place] [address] 08/29/2023 3:40 PM EST Office Visit [facility] [address] [place] [phone] Blaire Moran MD [address] [place], [place] [id number] Health Maintenance Due Date Last Done Comments [...] filedocumented as of this encounter Care Teams Amusement Equipment Operator Relationship Specialty Start Date End Date Blaire Moran MD [address] [place] [address] PCP - General 05/05/00 documented as of this encounter
--- OUTSIDE RECORDS SUMMARY | 2023-10-05 04:39 | External Medical Summary | Summary of Care ---
Author Name Unknown Organization [facility] Address [address] [place] [address] Phone [phone] Care Team Providers Care Mill Crane Operator Name Role Phone Fab Arroyo MD Primary Care Provider +1- [phone] Reason for Referral * Evaluate & Treat - Unlimited Visits (Within 10 days (routine)) - Authorized Specialty Diagnoses / Procedures Referred By Dorita t Referred To Contact Podiatry Diagnoses Type 2 diabetes mellitus with hemoglobin A1c goal of less than 8.0% ([facility]) Fab Arroyo MD [address] [place] [address] Referral ID Status Reason Start Date Expiration Date Visits Requested Visits Authorized [id number] Authorized Specialty Services Required 06/07/2023 999 999 Question Answer Referral Priority Within 10 days (routine) [facility] should this appointment be scheduled? [facility] Which condition are you referring this patient for? Routine Foot Care Medicare Patient? Yes Can Patient perform routine footcare without assistance? No Does patient have a chronic condition? Yes Has patient been seen in the past 6 months? Yes Date last seen for chronic condition: 04/22/2023 Who saw patient for chronic condition? Fab Arroyo MD Reason for Visit * Reason Onset Date Comments Referral 06/07/2023 Encounter Details Date Type Department Care Team ([facility] st Contact Info) Description 06/07/2023 Telephone Merged With [facility] [address] [place] [address] Fab Arroyo MD [address] [place] [address] Referral Allergies Active Allergy Reactions Criticality Noted Date Comments Indomethacin 10/31/2000 resulted in seizures twice documented as of this encounter (statuses as of 06/10/2023) Medications Medication Sig Dispensed Refills Start Date [...] as of this encounter (statuses as of 06/10/2023) Active Problems Problem Noted Date Diagnosed Date [...] 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 06/10/2023 * Telephone Encounter - Fab Arroyo MD - 06/07/2023 4:16 PM EDT Referral signed * Telephone Encounter - Helen Vallecillo LPN - 06/07/2023 1:26 PM EDT Patient's sister calling in asking for Podiatry referral for patient. He has routine Diabetic Foot Care on 06/18/2023. Referral pended for approval documented in this encounter Plan of Treatment Upcoming Encounters Date Type Department Care Team (Late st Contact Info) Description 06/18/2023 1:40 PM EST Office Visit Podiatry [facility] [address] [place] [address] Sandee Smith [facility] [address] [place] [address] 06/26/2023 3:50 PM EST [facility] [address] [place] [address] [facility] [address] [place] [address] 07/16/2023 4:15 PM EST Telemedicine Urology Lakeisha Rivas [address] [place] [address] John Owen MD [address] [place] [address] 7, Telemed [facility] Urology [address] [place] [address] 08/27/2023 2:00 PM EST Office Visit Neurology Christy Townsend [place] [address] [facility] [place] [address] Leona Richardson PA-C [address] [facility] [place] [address] 08/29/2023 3:40 PM EST Office Visit Merged With [facility] [address] [place] [phone] Fab Arroyo MD [address], [place] [phone] Scheduled Referrals Name Type Priority Associated Diagnoses [...] goal of less than 8.0% (HCC)- Primary documented in this encounter Care Teams Mill Crane Operator Relationship Specialty Start Date End Date Fab Arroyo MD [address] [place] [address] PCP - General 05/05/00 documented as of this encounter
--- OUTSIDE RECORDS SUMMARY | 2023-10-05 04:39 | External Medical Summary | Summary of Care ---
Author Name Unknown Organization [facility] Address [address] [place] [address] Phone [phone] Care Team Providers Care Associate Financial Representative Name Role Phone Blaire Moran MD Primary Care Provider +1- [phone] Reason for Visit * Reason Comments eRx-Medication Refill Encounter Details Date Type Department Care Team Description 05/08/2023 Refill [facility] [address] [place] [address] Blaire Moran MD [address] [place] [address] GENERALIZED CONVULSIVE EPILEPSY; WITHOUT MENTION OF INTRACTABLE EPILEPSY Allergies Active Allergy Reactions Severity Noted Date Comments Indomethacin 10/31/2000 resulted in seizures twice documented as of this encounter (statuses as of 05/09/2023) Medications Medication Sig Dispensed Refills Start Date [...] and 1 Capsule before bedtime. 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 t herapy 08/30/2004 Overview: ICD-10 update of inactive term GENERALIZED CONVULSIVE EPILEPSY; WITHOUT MENTION OF INTRACTABLE EPILEPSY documented as of this encounter (statuses as of 05/09/2023) Resolved Problems Problem Noted Date Resolved Date [...] as of this encounter (statuses as of 05/09/2023) Immunizations Name Administration Dates Next Due COVID-19 [...] Telephone Encounter - Blaire Moran MD - 05/09/2023 5:02 PM EDTSigned Prescriptions: Disp Refills Topiramate 200 MG Oral Tablet (topAMAX) 180 Ta*1 Sig: Take 1 tablet by mouth twice dailyAuthorizing Provider: BLAIRE MORAN * Telephone Encounter - Mayela Petit [facility] - 05/09/2023 2:26 PM EDTPending Prescriptions: Disp Refills Topiramate 200 MG Oral Tablet (topAMAX) 180 Ta*1 Sig: Take 1 tablet by mouth twice daily * Telephone Encounter - Mayela Petit [facility] - 05/09/2023 2:26 PM EDT Did you pend patient's preferred pharmacy and medication before forwarding?yes Pharmacy: [facility] [address] [address] MARY[address] [place] Pending Prescriptions: Disp Refills Topiramate 200 MG Oral Tablet (topAMAX) [*180 Ta*1 Sig: Take 1 tablet by mouth twice daily Last Visit: 04/22/2023 (in office), Visit date not found (telemedicine) Next Visit: 08/29/2023 If no future appointments scheduled, and last appointment is greater than a year ago, please schedule patient for a follow-up appointment Last date the medication was ordered: 12/25/22 Is this request for a controlled substance?No Urine Drug Screen:No results found. However, due to the size of the patient record, not all encounters were searched. Please check Results Review for a complete set of results. Patient Phone Numbers Labs: Lab Results Component Value Date/Time CREAT 0.9 04/22/2023 08:12 AM CREAT 1.1 04/07/2020 11:31 AM CREAT 1.2 10/27/1996 03:54 PM POTASSIUM 4.6 04/22/2023 08:12 AM POTASSIUM 4.1 04/07/2020 11:31 AM TSH 2.84 05/23/2015 03:34 PM LDLCALC 101 04/22/2023 08:12 AM LDLCALC 84 11/25/2018 10:59 AM LDLDIRECT 89 01/31/2021 11:20 AM LDLDIRECT 102 12/07/2019 11:58 AM LDLDIRECT 94 07/23/2013 01:16 PM ALT 58 (H) 04/22/2023 08:12 AM ALT 28 04/07/2020 11:31 AM HGBA1C 9.5 (H) 04/22/2023 08:12 AM HGBA1C 6.8 (H) 04/07/2020 11:31 AM documented in this encounter Plan of Treatment Upcoming Encounters Date Type Specialty Care Team Description 05/20/2023 [facility] [address] [place] [address] 06/18/2023 Office Visit Podiatry Sandee Smith, DPM [address] [facility] [place] [address] 07/16/2023 Telemedicine Urology John Owen MD [address] [place] [id number] 7, Telemed [facility] Urology [address] [place] [address] 08/27/2023 Office Visit Neurology Leona Richardson PA-C [address] [place] [address] 08/29/2023 Office Visit Family Medicine Blaire Moran MD [address] [place] [address] Health Maintenance Due Date Last Done Comments [...] EXAM 03/14/2021 03/14/2020 COVID-19 Vaccine (3 - 2022-24 [...] as of this encounter Visit Diagnoses Diagnosis GENERALIZED CONVULSIVE EPILEPSY; WITHOUT MENTION OF INTRACTABLE EPILEPSY Generalized convulsive epilepsy without mention of intractable epilepsy documented in this encounter Care Teams Associate Financial Representative Relationship Specialty Start Date End Date Blaire Moran MD [address] [place] [address] PCP - General 05/05/00 documented as of this encounter
--- OUTSIDE RECORDS SUMMARY | 2023-10-05 04:39 | External Medical Summary | Summary of Care ---
Author Name Unknown Organization [facility] Address [address] [place] [address] Phone [phone] Care Team Providers Care Welding Machine Operator/Tender Name Role Phone Fab Arroyo MD Primary Care Provider +1- [phone] Reason for Referral * Evaluate & Treat - Unlimited Visits (Within 30 days (routine)) - Authorized Specialty Diagnoses / Procedures Referred By Dorita t Referred To Contact Physical Therapy / Physical Medicine And Rehab Diagnoses Lymphedema Fab Arroyo MD [address] [place] [address] Referral ID Status Reason Start Date Expiration Date Visits Requested Visits Authorized [id number] Authorized Specialty Services Required 04/22/[phone] Question Answer Referral Priority Within 30 days (routine) Reason for Visit * Reason Comments Follow Up Encounter Details Date Type Department Care Team Description 04/22/2023 Office Visit [facility] [address] [place] [id number] Fab Arroyo MD [address] [place] [address] Lymphedema*; Hepatic encephalopathy (HCC); Type 2 diabetes mellitus with hemoglobin A1c goal of less than 8.0% (HCC); Dyslipidemia, goal LDL below 130; GENERALIZED CONVULSIVE EPILEPSY; WITHOUT MENTION OF INTRACTABLE EPILEPSY Allergies Active Allergy Reactions Severity Noted Date Comments Indomethacin 10/31/2000 resulted in seizures twice documented as of this encounter (statuses as of 05/06/2023) Medications Medication Sig Dispensed Refills Start Date [...] FOR FLUID 90 Tablet 3 10/10/2022 Active Topiramate 200 MG Oral Tablet (topAMAX)Indicat ions:Generalized convulsive epilepsy without intractable epilepsy (HCC) Take 1 tablet by mouth twice daily 180 Tablet 1 12/25/2022 Active Gabapentin 400 MG Oral Capsule (Neurontin) [...] MOUTH IN THE MORNING 90 Tablet 0 11/27/2022 04/30/20 23 Discontinued documented as of this encounter (statuses as of 05/06/2023) Active Problems Problem Noted Date Liver failure [...] 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 Overview: ICD-9 Code 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 current use of 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 t herapy 08/30/2004 Overview: ICD-10 update of inactive term GENERALIZED CONVULSIVE EPILEPSY; WITHOUT MENTION OF INTRACTABLE EPILEPSY documented as of this encounter (statuses as of 05/06/2023) Resolved Problems Problem Noted Date Resolved Date [...] as of this encounter (statuses as of 05/06/2023) Immunizations Name Administration Dates Next Due COVID-19 [...] Date Smoking Tobacco: Never Smokeless Tobacco: Never Tobacco Cessation:Counseling Given: Not Answered Alcohol Use Standard Drinks/Week Comments No 0 [...] Sign Reading Time Taken Comments Blood Pressure 146/64 04/22/2023 4:03 PM EDT Pulse 85 04/22/2023 4:03 PM EDT Temperature 36.2 C (97.1 F) 04/22/2023 4:03 PM ED T Respiratory Rate 22 04/22/2023 4:03 PM EDT Oxygen Saturation 96% 04/22/2023 4:03 PM EDT Inhaled Oxygen Concentration - - Weight 129.1 kg (284 lb 9.6 oz) 04/22/2023 4:03 PM EDT Height 185.4 cm (6' 1") 04/22/2023 4:03 PM EDT Body Mass Index 37.55 04/22/2023 4:03 PM EDT documented in this encounter Progress Notes * Fab Arroyo MD - 04/22/2023 4:26 PM EDT Subjective: Eliseo Smith is a 62 year old male here today for Chief Complaint Patient presents with Follow Up Here for routine recheck. Tolerating current meds. Made aware of elevated ammonia level. No recent fever or signs/sx's of infection. Mental status stable according to pt and family. Past Medical History: Diagnosis Date Benign neoplasm [...] by mouth once daily 90 Tab 5 Loratadine 10 MG Oral Tablet (Claritin) Take by mouth 1 Tablet in the morning. x1-2 wks then as needed-otc. 30 Tablet 0 glipiZIDE 5 MG Oral Tablet (Glucotrol) Take 1 tab by mouth by mouth twice per day before meals. 180Tablet 3 Tamsulosin HCl 0.4 MG Oral Capsule (Flomax) Take 1 capsule by mouth once daily 90 Capsule 3 Warfarin Sodium 5 MG Oral Tablet [...] ONCE DAILY FOR FLUID 90 Tablet 3 Topiramate 200 MG Oral Tablet (topAMAX) Take 1 tablet by mouth twice daily 180 Tablet 1 Gabapentin 400 MG Oral Capsule (Neurontin) Take 1 capsule by mouth at bedtime 90 Capsule 3 Lactulose 10 GM/15ML Oral Solution (Constulose) TAKE 45ML BY MOUTH FOUR TIMES DAILY 5400 mL 5 Dilantin 100 MG Oral Capsule TAKE 4 CAPSULES BY MOUTH TWICE DAILY 240 Capsule 5 Tradjenta 5 MG Oral Tablet (linaGLIPtin) [...] BY MOUTH ONCE DAILY 135 Tablet 2 Lidocaine 5 % External Ointment Apply 1 Film topically to affected area daily. Apply to legs as needed (Patient not taking: Reported on 04/22/2023) Finasteride 5 MG Oral Tablet (Proscar) TAKE 1 TABLET BY MOUTH IN THE MORNING 90 Tablet 0 No current facility-administered medications for this visit. Objective: BP 146/64 | Pulse 85 | Temp 36.2 C (97.1 F) (Temporal Artery) | Resp 22 | Ht 1.854 m(6' 1") | Wt 129.1 kg (284 lb 9.6 oz) | SpO2 96% | BMI 37.55 kg/m | BSA 2.58 m GEN: NAD HEENT: Benign NECK: Supple with no LAD, TM, JVD CHEST: CTA B CV: RRR ABD: Soft, NT/ND, No HSM, NABS EXT: No c,c,e Assessment and Plan: Lymphedema (Primary) - PHYSICAL THERAPY REFERRAL OP Hepatic encephalopathy (HCC) - AMMONIA; Future; Expected date: 04/22/2023 Type 2 diabetes mellitus with hemoglobin A1c goal of less than 8.0% (HCC) Dyslipidemia, goal LDL below 130 GENERALIZED CONVULSIVE EPILEPSY; WITHOUT MENTION OF INTRACTABLE EPILEPSY -continue reg meds. Follow Up: Return in about 4 months (around 08/22/2023) for recheck. | For: recheck | Check-out note: Submit PT referral to [facility] for further lymphedema therapy 30 min with pt and chart review Fab Arroyo MD documented in this encounter Nursing Notes * Hyacinth Lopez LPN - 04/22/2023 4:02 PM EDT The patient has been properly identified by confirmation of name and date of . Chief Complaint Patient presents with Follow Up documented in this encounter Plan of Treatment Upcoming Encounters Date Type Specialty Care Team Description 05/20/2023 [facility] [address] [facility] [address] 06/18/2023 Office Visit Podiatry Sandee Smith DPM [address] [place] [address] 07/02/2023 [facility] [address] 07/16/2023 Telemedicine Urology John Owen MD [address] [place] [phone] 7, Telemed [facility] [address] [place] [address] 08/29/2023 Office Visit Family Medicine Fab Arroyo MD [address] [place], [place] [phone] Scheduled Orders Name Type Priority Associated Diagnoses Orde r Schedule AMMONIA Lab Routine Hepatic encephalopathy (HCC) Expected: 04/22/2023, Expires: 04/22/2024 Scheduled Referrals Name Type Priority Associated Diagnoses Orde r Schedule PHYSICAL THERAPY REFERRAL OP Referral Within 30 days (routine) Lymphedema Ordered: 04/22/2023 Health Maintenance Due Date Last Done Comments [...] EXAM 03/14/2021 03/14/2020 COVID-19 Vaccine (3 - Pfizer series) 05/30/2021 04/04/2021, 03/11/2021 Influenza Vaccine (FLU shot) (#1) [...] as of this encounter Visit Diagnoses Diagnosis Lymphedema- Primary Other lymphedema Hepatic encephalopathy (HCC) Hepatic encephalopathy Type 2 diabetes mellitus with hemoglobin A1c goal of less than 8.0% (HCC) Dyslipidemia, goal LDL below 130 Other and unspecified hyperlipidemia GENERALIZED CONVULSIVE EPILEPSY; 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
--- OUTSIDE RECORDS SUMMARY | 2023-10-05 04:39 | External Medical Summary | Summary of Care ---
Author Name Unknown Organization [facility] Address [address] [place] [address] Phone [phone] Care Team Providers Care Enrober Name Role Phone Fab Arroyo MD Primary Care Provider +1- [phone] Reason for Visit * Reason Comments eRx-Medication Refill Encounter Details Date Type Department Care Team Description 04/30/2023 Refill Urology, [facility] [address] [facility] [place] [address] Saray Dos Santos MD [address] [facility] [address] [place] [address] Allergies Active Allergy Reactions Severity Noted Date Comments Indomethacin 10/31/2000 resulted in seizures twice documented as of this encounter (statuses as of 04/30/2023) Medications Medication Sig Dispensed Refills Start Date [...] THE MORNING 90 Tablet 0 04/30/2023 Active Finasteride 5 MG Oral Tablet (Proscar) TAKE 1 TABLET BY MOUTH IN THE MORNING 90 Tablet 0 11/27/2022 04/30/20 23 Discontinued documented as of this encounter (statuses as of 04/30/2023) Active Problems Problem Noted Date Liver failure [...] 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 Overview: ICD-9 Code Update intermediate current use of 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 t herapy 08/30/2004 Overview: ICD-10 update of inactive term GENERALIZED CONVULSIVE EPILEPSY; WITHOUT MENTION OF INTRACTABLE EPILEPSY documented as of this encounter (statuses as of 04/30/2023) Resolved Problems Problem Noted Date Resolved Date [...] as of this encounter (statuses as of 04/30/2023) Immunizations Name Administration Dates Next Due COVID-19 mRNA, LNP-s, No Pre serve, 2-Dose Series ([employer]) 04/04/2021,03/11/2021 Pneumococcal Polysaccharide PPV23 (Pneumovax) 03/24/2013 Seasonal [...] encounter Miscellaneous Notes * Telephone Encounter - Saray Dos Santos MD - 04/30/2023 4:33 PM EDTSigned Prescriptions: Disp Refills Finasteride 5 MG Oral Tablet (Proscar) 90 Tab*0 Sig: TAKE 1 TABLET BY MOUTH IN THE MORNINGAuthorizing Provider: SARAY DOS SANTOS * Telephone Encounter - Awa Rosenthal LPN - 04/30/2023 12:58 PM EDT Pending Prescriptions: Disp Refills Finasteride 5 MG Oral Tablet 90 Tab*0 Sig: TAKE 1 TABLET BY MOUTH IN THE MORNING * Telephone Encounter - Awa Rosenthal LPN - 04/30/2023 12:57 PM EDT Refill of finasteride requested Last appt: 07/10/2022 (in office), Visit date not found (telemedicine) Next appt: 07/16/2023 Review of patient's allergies indicates: Allergen Reactions Indomethacin resulted in seizures twice Thank you Liseth documented in this encounter Plan of Treatment Upcoming Encounters Date Type Specialty Care Team Description 05/20/2023 [facility] [address] [place] [address] 06/18/2023 Office Visit Podiatry Sandee Smith [facility] [address] [place] [address] 07/02/2023 [facility]rology [facility] [address] [facility] [address] 07/16/2023 [facility]os [facility] [address] [place] [address] 7, Telemed [facility] [address] [place] [address] 08/29/2023 Office Visit Family Medicine Fab Arroyo MD [address] [place] [address] Health Maintenance Due Date Last Done Comments [...] filedocumented as of this encounter Care Teams Enrober Relationship Specialty Start Date End Date Fab Arroyo MD [address] [place], [place] [phone] PCP - General 05/05/00 documented as of this encounter
--- OUTSIDE RECORDS SUMMARY | 2023-10-05 04:40 | External Medical Summary | Summary of Care ---
Author Name Unknown Organization [facility] Address [address] [place] [address] Phone [phone] Care Team Providers Care Outboard Motorboat Rigger Name Role Phone Fab Arroyo MD Primary Care Provider +1- [phone] Reason for Visit * Reason Comments Outpatient Testing Encounter Details Date Type Department Care Team Description 04/22/2023 Laboratory [facility], [place] [address] [place] [address] [place] [address] [place] [address] Type 2 diabetes mellitus with hemoglobin A1c goal of less than 8.0% ([facility]); GENERALIZED CONVULSIVE EPILEPSY; WITHOUT MENTION OF INTRACTABLE EPILEPSY; Dyslipidemia, goal LDL below 130 Allergies Active Allergy Reactions Severity Noted Date Comments Indomethacin 10/31/2000 resulted in seizures twice documented as of this encounter (statuses as of 04/22/2023) Medications Medication Sig Dispensed Refills Start Date [...] FOR FLUID 90 Tablet 3 10/10/2022 Active Finasteride 5 MG Oral Tablet (Proscar) TAKE 1 TABLET BY MOUTH IN THE MORNING 90 Tablet 0 11/27/2022 Active Topiramate 200 MG Oral Tablet (topAMAX)Indicatio [...] ONCE DAILY 135 Tablet 2 04/04/2023 Active documented as of this encounter (statuses as of 04/22/2023) Active Problems Problem Noted Date Liver failure [...] 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 Overview: ICD-9 Code Update prison current use of 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 t herapy 08/30/2004 Overview: ICD-10 update of inactive term GENERALIZED CONVULSIVE EPILEPSY; WITHOUT MENTION OF INTRACTABLE EPILEPSY documented as of this encounter (statuses as of 04/22/2023) Resolved Problems Problem Noted Date Resolved Date [...] as of this encounter (statuses as of 04/22/2023) Immunizations Name Administration Dates Next Due COVID-19 [...] Encounters Date Type Specialty Care Team Description 04/22/2023 Anticoagulation Pharmacy [facility] [address] [place] [facility] 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 [address] 06/18/2023 Office Visit Podiatry Sandee Smith DPM [address] [place] [address] 07/02/2023 Office Visit Neurology Leona Richardson PA-C [address] [facility], [place] [address] 07/16/2023 Telemedicine Urology John Owen MD [address] [place] [address] 7, Telemed Jose Manuel Metz Urology Ex Rm [address] [place] [address] Pending Results Name Type Priority Associated Diagnoses Date /Time HEMOGLOBIN A1C Lab Routine Type 2 diabetes mellitus with hemoglobin A1c goal of less than 8.0% (HCC) 04/22/2023 8:12 AM EDT PHENYTOIN LEVEL Lab Routine GENERALIZED CONVULSIVE EPILEPSY; WITHOUT MENTION OF INTRACTABLE EPILEPSY 04/22/2023 8:12 AM EDT VALPROIC ACID LEVEL Lab Routine GENERALIZED CONVULSIVE EPILEPSY; WITHOUT MENTION OF INTRACTABLE EPILEPSY 04/22/2023 8:12 AM EDT COMPREHENSIVE METABOLIC PANEL Lab Routine Type 2 diabetes mellitus with hemoglobin A1c goal of less than 8.0% (HCC) Dyslipidemia, goal LDL below 130 04/22/2023 8:12 AM EDT LIPID PANEL WITH DIRECT LDL IF TG IS HIGH Lab Routine Type 2 diabetes mellitus with hemoglobin A1c goal of less than 8.0% (HCC) Dyslipidemia, goal LDL below 130 04/22/2023 8:12 AM EDT Health Maintenance Due Date Last Done Comments [...] 2023 05/23/2010, 05/12/2009, 07/16/2008, Additional history exists HbA1c 06/08/2023 12/06/2022, 07/05, 03/15/2022, Additional history exists Albumin/Creatinine Ratio 07/18/2023 07/18/2022, 11/2019 Depression Screening 09/12/2023 09/12/2022 GFR 12/07/2023 12/06/2022, 07/05, 07/18/2022, Additional history exists Lipid Panel 07/18/2027 07/18/2022, 01/04, 12/07/2019, Additional history exists DTaP,Tdap,and Td Vaccines (3 - Td or Tdap) 05/02/2028 05/02/2018, 02/12/2008 GARDASIL-HPV IMMUNIZATION SERIES Aged Out No longer eligible based on patient's age to complete this topic MENINGOCOCCAL (MENACTRA/MENVEO) Aged Out No longer eligible based on patient's age to complete this topic documented as of this encounter Medical Devices Not on filedocumented as of this encounter Visit Diagnoses Diagnosis 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 (deep vein thrombosis)- Primary Personal history of venous thrombosis and embolism Anticoagulation management encounter Encounter for therapeutic drug monitoring prison current use of 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 therapy Type 2 diabetes mellitus with hemoglobin A1c goal of less than 8.0% (HCC) GENERALIZED CONVULSIVE EPILEPSY; 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
--- OUTSIDE RECORDS SUMMARY | 2023-10-05 04:40 | External Medical Summary ---
Author Name Unknown Address Unknown Organization [id number]:[facility] - [address] [facility] [address] Laboratory Report Ordering Provider Test Date Status DEAN RUDD 04/22/2023 08:12:08 Final Observation Date Value Abnormality Reference (Units ) Status HbA1C 04/22/2023 08:12:08 9.5 Above high normal 4. 0-5.6 (%) Final The use of HbA1c to monitor glycemic status is based on normal hemoglobin and HbA composition. This test should not be used in patients with abnormal hemoglobin that affects the half life of the red blood cell or the in vivo glycation rates. Glucose, estimated average 04/22/2023 08:12:08 226 Above high normal <126 (mg/dL) Alejandro akers Performing Location [facility] - [address] [facility] [address]
--- OUTSIDE RECORDS SUMMARY | 2023-10-05 04:40 | External Medical Summary ---
Author Name Unknown Address Unknown Organization [id number]:[facility] - [address] [place] [address] Laboratory Report Ordering Provider Test Date Status DEAN RUDD 04/22/2023 08:53:29 Final Observation Date Value Abnormality Reference (Units ) Status Ammonia 04/22/2023 08:53:29 119 Above upper panic limits 11-35 (umol/L) Final Performing Location [facility] - [address] [place] [address]
--- OUTSIDE RECORDS SUMMARY | 2023-10-05 04:40 | External Medical Summary | Summary of Care ---
Author Name Unknown Organization [facility] Address [address] [place] [address] Phone [phone] Care Team Providers Care Pharmacist Manager Name Role Phone Fab Arroyo MD Primary Care Provider +1- [phone] Reason for Visit * Reason Comments Outpatient Testing Encounter Details Date Type Department Care Team Description 04/22/2023 Laboratory [facility], [place] [address] [place] [address] [place] [address] [place] [address] Type 2 diabetes mellitus with hemoglobin A1c goal of less than 8.0% (HCC); GENERALIZED CONVULSIVE EPILEPSY; WITHOUT MENTION OF INTRACTABLE EPILEPSY; Dyslipidemia, goal LDL below 130; Hepatic encephalopathy (HCC) Allergies Active Allergy Reactions Severity Noted Date [...] 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 Overview: ICD-9 Code Update nursing home current use of 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 t herapy 08/30/2004 [...] mRNA, LNP-s, No Pre serve, 2-Dose Series (Qeexo) 04/04/2021,03/11/2021 Pneumococcal Polysaccharide PPV23 (Pneumovax) 03/24/2013 Seasonal [...] Team Description 04/22/2023 Anticoagulation Pharmacy [facility] [address] [place] [facility] [place] [address] 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 (deep vein thrombosis)*; Anticoagulation management encounter; nursing home current use of 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 therapy 04/22/2023 Office Visit Family Medicine Fab Arroyo MD [address] [place] [facility] [place] [address] 05/20/2023 Anticoagulation Pharmacy [facility] [address] [place] [facility] [place] [address] 06/18/2023 Office Visit Podiatry Sandee Smith DPM [address] [place] [address] 07/02/2023 [facility] [address] 07/16/2023 Telemedicine Urology John Owen MD [address] [facility] [address] [place] [address] 7, Telemed Jose Manuel Metz Urology Ex Rm [address] [place] [address] Pending Results Name Type Priority Associated Diagnoses [...] LDL below 130 04/22/2023 8:12 AM EDT AMMONIA Lab Routine Hepatic encephalopathy (HCC) 04/22/2023 8:53 AM EDT Health Maintenance Due Date Last [...] 07/18/2022, 05/0 11/2019 Depression Screening 09/12/2023 09/12/2022 GFR 12/07/2023 [...] management encounter Encounter for therapeutic drug monitoring nursing home current use of 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 therapy Type 2 diabetes mellitus with hemoglobin A1c goal of less than 8.0% (HCC) GENERALIZED CONVULSIVE EPILEPSY; 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
--- OUTSIDE RECORDS SUMMARY | 2023-10-05 04:40 | External Medical Summary ---
Author Name Unknown Address Unknown Organization [id number]:[facility] - [address] [facility] [address] Laboratory Report Ordering Provider Test Date Status DEAN RUDD 04/22/2023 08:12:08 Final Observation Date Value Abnormality Reference (Units ) Status Triglyceride 04/22/2023 08:12:08 196 Above high normal <=174 (mg/dL) Final Triglyceride Reference Range s (mg/dL):
<150 Acceptable
150-174 Borderline high
175-499 High
>=500 Very high Cholesterol 04/22/2023 08:12:08 179 <200 (mg /dL) Final Total Cholesterol Reference Ranges (mg/dL):
<200 Desirable
200-239 Borderline high
>=240 High HDL 04/22/2023 08:12:08 39 Below low normal >39 (mg/dL) Final HDL Cholesterol Reference Ra nges (mg/dL):
>=60 High (Desirable)
<50 Low (Undesirable) For Females
<40 Low (Undesirable) For Males NON-HDL CHOLESTEROL 04/22/2023 08:12:08 140 <=159 (mg/dL) Final Non-HDL Cholesterol Referenc e Range (mg/dL):
<100 Target level for high risk ASCVD patient
<130 Optimal for general population
130-159 Near optimal for general population
160-189 Borderline High
190-219 High
>=220 Very High LDL, (calculated) 04/22/2023 08:12:08 101 <= 129 (mg/dL) Final LDL Cholesterol Reference Ra nges (mg/dL):
<70 Target level for high risk ASCVD patient
<100 Optimal for general population
100-129 Near optimal for general population
130-159 Borderline high
160-189 High
>=190 Very high Performing Location [facility] - [address] [facility] [address]
--- OUTSIDE RECORDS SUMMARY | 2023-10-05 04:40 | External Medical Summary ---
Author Name Unknown Address Unknown Organization : Laboratory Report Ordering Provider Test Date Status CALEYOKASTA 04/22/2023 08:33:00 Final Therapeutic ranges for non-o perative patients:
Prophylaxsis/treatment of DVT: (Range:2.0-3.0)
Treatment of pulmonary embolism:(Range:2.0-3.0)
Prevention of systemic embolism from:
-tissue heart valves
-acute myocardial infarction
-valvular heart disease
-atrial fibrillation
(Range: 2.0-3.0)
Mechanical prosthetic valves: (Range: 2.5-3.5) Observation Date Value Abnormality Reference (Units ) Status INR in Capillary blood by Coagulation assay 04/22/2023 08:33:00 3.3 (INR) Final Performing Location
--- OUTSIDE RECORDS SUMMARY | 2023-10-05 04:40 | External Medical Summary ---
Author Name Unknown Address Unknown Organization [id number]:[facility] - [address] [facility] [address] Laboratory Report Ordering Provider Test Date Status DEAN RUDD 04/22/2023 08:12:08 Final Observation Date Value Abnormality Reference (Units ) Status BUN 04/22/2023 08:12:08 19 6-20 (mg/dL) Final Creatinine 04/22/2023 08:12:08 0.9 0.6-1.2 (mg/dL) Final Glomerular filtration rate/1.73 sq M.predicted [Volume Rate/Area] in Serum, Plasma or Blood by Creatinine-based formula (CKD-EPI) 04/22/2023 08:12:08 >90 >=60 (mL/min) Final eGFR is calculated based on the CKD-EPI 2020 equation SODIUM 04/22/2023 08:12:08 139 135-146 (m mol/L) Final Potassium 04/22/2023 08:12:08 4.6 3.5-5.1 (m mol/L) Final Cl 04/22/2023 08:12:08 107 98-107 (mm ol/L) Final CO2 04/22/2023 08:12:08 17 Below low normal 22- 32 (mmol/L) Final Anion gap 04/22/2023 08:12:08 15 7-15 (mmol /L) Final Glucose 04/22/2023 08:12:08 270 Above high normal 70 -120 (mg/dL) Final Albumin 04/22/2023 08:12:08 4.2 3.8-5.0 (g /dL) Final AST (Aspartate aminotransferase) 04/22/2023 08:12:08 46 10-50 (U/L) Fin al Result may be falsely elevat ed due to hemolysis. Alk Phos 04/22/2023 08:12:08 101 35-130 (U/ L) Final Bilirubin, Total 04/22/2023 08:12:08 0.2 <=1 .2 (mg/dL) Final Calcium 04/22/2023 08:12:08 8.4 8.4-10.2 ( mg/dL) Final Protein 04/22/2023 08:12:08 6.1 6.0-8.3 (g /dL) Final ALT (Alanine aminotransferase) 04/22/2023 08:12:08 58 Above high normal 10-50 (U/L) Final Performing Location [facility] - [address] [facility] [address]
--- OUTSIDE RECORDS SUMMARY | 2023-10-05 04:40 | External Medical Summary | Summary of Care ---
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 08/30/2004 [...] Team Description 04/22/2023 Anticoagulation Pharmacy [facility] [address] [place] [address] 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 (deep vein thrombosis)*; Anticoagulation management encounter; retirement current use of 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 therapy 04/22/2023 Office Visit Family Medicine Fab Arroyo MD [address] [place] [address] 05/20/2023 Anticoagulation Pharmacy [facility] [address] [place] [address] 06/18/2023 Office Visit Podiatry Sandee Smith DPM [address] [place] [address] 07/02/2023 Office Visit Neurology Leona Richardson PA-C [address] [place] [address] 07/16/2023 Telemedicine Urology John Owen MD [address] [place] [address] 7, Telemed Jose Manuel Metz Urology Ex Rm [address] [place] [address] Pending Results Name Type Priority Associated Diagnoses Date /Time AMMONIA Lab Routine Hepatic encephalopathy (HCC) 04/22/2023 8:53 AM EDT Scheduled Orders Name Type Priority Associated Diagnoses Orde r Schedule AMMONIA Lab Routine Hepatic encephalopathy (HCC) Expected: 04/22/2023, Expires: 04/22/2024 Health Maintenance Due Date Last Done Comments [...] management encounter 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
--- OUTSIDE RECORDS SUMMARY | 2023-10-05 04:40 | External Medical Summary | Summary of Care ---
Author Name Unknown Organization [facility] Address [address] [place] [address] Phone [phone] Care Team Providers Care Infectious Disease Technician Name Role Phone Fab Arroyo MD Primary Care Provider +1- [phone] Encounter Details Date Type Department Care Team Description 04/22/2023 Telephone [facility] [address] [place] [address] Fab Arroyo MD [address] [place] [address] Allergies Active Allergy Reactions Severity Noted Date Comments Indomethacin 10/31/2000 resulted in seizures twice documented as of this encounter (statuses as of 04/23/2023) Medications Medication Sig Dispensed Refills Start Date [...] as of this encounter (statuses as of 04/23/2023) Active Problems Problem Noted Date Liver failure [...] 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 Overview: ICD-9 Code 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 Reviewed with pt at [facility] same day * Telephone Encounter - Melly Fraire LPN - 04/22/2023 3:53 PM EDT Lab called with a critical lab result Ammonia 19 Please advise documented in this encounter Plan of Treatment Upcoming Encounters Date Type Specialty Care Team Description 05/20/2023 Anticoagulation Pharmacy [facility] [address] [facility] [place] [id number] 06/18/2023 Office Visit Podiatry Sandee Smith DPM [address] [place] [address] 07/02/2023 Office Visit Neurology Leona Richardson PA-C [address] [facility] [address] 07/16/2023 Telemedicine Urology John Owen MD [address] [place] [address] 7, Telemed Jose Manuel Metz Urology Ex Rm [address] [place] [address] 08/29/2023 Office Visit Family Medicine [facility] [address] [facility] [address] Health Maintenance Due Date Last Done [...] filedocumented as of this encounter Care Teams Infectious Disease Technician Relationship Specialty Start Date End Date Fab Arroyo MD [address] [place] [address] PCP - General 05/05/00 documented as of this encounter
--- OUTSIDE RECORDS SUMMARY | 2023-10-05 04:40 | External Medical Summary | Summary of Care ---
Author Name Unknown Organization [facility] Address [address] [place] [address] Phone [phone] Care Team Providers Care Ham Sawyer Name Role Phone Fab Arroyo MD Primary Care Provider +1- [phone] Reason for Visit * Reason Comments Outpatient Testing Encounter Details Date Type Department Care Team Description 04/22/2023 Laboratory [facility] [place] [address] [place] [address] [place] [address] [place] [address] Type 2 diabetes mellitus with [...] Code Update [facility] current use of 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 t herapy 08/30/2004 [...] mRNA, LNP-s, No Pre serve, 2-Dose Series (studentSN) 04/04/2021,03/11/2021 Pneumococcal Polysaccharide PPV23 (Pneumovax) 03/24/2013 Seasonal [...] Specialty Care Team Description 04/22/2023 Anticoagulation Pharmacy [facility] [address] [place] [facility] [place] [address] 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 (deep vein thrombosis)*; Anticoagulation management encounter; [facility] current use of 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 therapy 04/22/2023 Office Visit Family Medicine Fab Arroyo MD [address] [place] [facility] [place] [address] 05/20/2023 Anticoagulation Pharmacy [facility] [address] [place] [address] 06/18/2023 Office Visit Podiatry Sandee Smith DPM [address] [place] [address] 07/02/2023 [facility] [address] 07/16/2023 Telemedicine Urology John Owen MD [address] [facility] [address] [place] [address] 7, Telemed Jose Manuel Metz Urology Ex Rm [address] [place] [address] Pending Results Name Type Priority Associated Diagnoses [...] monitoring [facility] current use of 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 therapy Type 2 diabetes mellitus with hemoglobin A1c goal of less than 8.0% (HCC) GENERALIZED CONVULSIVE EPILEPSY; 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
--- OUTSIDE RECORDS SUMMARY | 2023-10-05 04:40 | External Medical Summary ---
Author Name Unknown Address Unknown Organization K01:[facility] - [address] [place] [address] Laboratory Report Ordering Provider Test Date Status DEAN RUDD 04/22/2023 08:12:08 Final Observation Date Value Abnormality Reference (Units ) Status Valproic Acid, level 04/22/2023 08:12:08 72 50-100 (ug/mL) Final Performing Location [facility] - [address] [place] [address]
--- OUTSIDE RECORDS SUMMARY | 2023-10-05 04:40 | External Medical Summary | Summary of Care ---
Author Name Unknown Organization [facility] Address [address] [place] [address] Phone [phone] Care Team Providers Care Pediatric Social Worker Name Role Phone Fab Arroyo MD Primary Care Provider [phone] Reason for Visit * Reason Comments Dosage Adjustment In Person (Anticoag Cl inic) Encounter Details Date Type Department Care Team Description 04/22/2023 Anticoagulation Pharmacy, [address] [address] [facility] [address] [place] [address] 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 (deep vein thrombosis)*; Anticoagulation management encounter; correction current use of 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 therapy Allergies Active [...] 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 Overview: ICD-9 Code 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 Medication Therapy Disease Management - Anticoagulation Patient: Eliseo Smith | : 1960 Subjective Patient-Reported Symptoms: Patient Findings Negatives: Signs/symptoms of thrombosis, Signs/symptoms of bleeding, Change in health, Change in alcohol use, Change in activity, Upcoming invasive procedure, Missed doses, Extra doses, Change in medications, Change in diet/appetite, Bruising Objective Current Warfarin Dose As of 04/22/2023 Warfarin maintenance plan: 7.5 mg (5 mg x 1.5) every Mon, Fri; 5 mg (5 mg x 1) all other days INR Result As of 04/22/2023 INR goal: 2.0-3.0 INR used for dosin.3 (04/22/2023) Assessment & Plan Warfarin Plan As of 04/22/2023 Full warfarin instructions: 04/22: Hold; Otherwise 7.5 mg every Mon, Fri; 5 mg all other days Next INR check: 05/20/2023 Repeat PT/INR in 4 week(s) Weekly dose: not changed Additional Dosing Information: Milvia Ram RP Clinical Pharmacist 04/22/2023, 8:30 AM documented in this encounter Plan of Treatment Upcoming Encounters Date Type Specialty Care Team Description 04/22/2023 Office Visit Family Medicine Fab Arroyo MD [address] [place] [address] 05/20/2023 [facility] [address] [place] [address] 06/18/2023 Office Visit Podiatry Sandee Smith, [facility] [address] [place] [id number] 07/02/2023 Office Visit Neurology Leona Richardson PA-C [address], [place] [id number] 07/16/2023 Telemedicine Urology John Owen MD [address] [place] [id number] 7, Telemed [facility] Ex [address] [place] [address] Health Maintenance Due Date Last Done Comments [...] 07/18/2023 07/18/2022, 0511/2019 Depression Screening 09/12/2023 09/12/2022 GFR 12/07/2023 12/06/2022, [...] Diagnosis Comments INR FINGERSTICK, POINT OF CARE LETA 04/22/2023 8:33 AM EDT documented in this encounter Results * INR FINGERSTICK, POINT OF CARE (04/22/2023 8:33 AM EDT) Fingerstick INR 3.3 INR 8:34 AM EDT [facility] Blood 04/22/2023 8:33 AM EDT 04/22/2023 8:34 AM EDT Narrative [facility] - 04/22/2023 8:34 AM EDT Therapeutic ranges for non-operative patients: Prophylaxsis/treatment of DVT: (Range:2.0-3.0) Treatment of pulmonary embolism:(Range:2.0-3.0) Prevention of systemic embolism from: -tissue heart valves -acute myocardial infarction -valvular heart disease -atrial fibrillation (Range: 2.0-3.0) Mechanical prosthetic valves: (Range: 2.5-3.5) [facility] [place] [facility] POINT OF CARE TEST DOCKED DEVICE UNSOLICITED RESULTS [facility] [address] [place] [address] documented in this encounter Visit Diagnoses Diagnosis 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 (deep vein thrombosis)- Primary Personal history of venous thrombosis and embolism Anticoagulation management encounter 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
[2023-10-05 06:45] LABS: Basophils # (auto) 0.05 K/uL (0.00-0.20); Basophils % (auto) 0.5 %; Eosinophils # (auto) 0.02 K/uL (0.00-0.50); Eosinophils % (auto) 0.2 %; Hematocrit (blood only) 50.1 % (42.0-52.0); Immature Granulocytes # (auto) 0.07 K/uL (0.01-0.20); Immature Granulocytes % (auto) 0.7 %; Lymphocytes # (auto) 2.41 K/uL (1.20-3.40); Mean Corpuscular Hemoglobin 34.5 pg (25.0-34.0); Mean Corpuscular Hgb Conc 35.9 g/dL (32.0-36.0); Mean Corpuscular Volume 96.2 fL (80.0-100.0); Monocytes # (auto) 1.07 K/uL (0.11-0.59); Monocytes % (auto) 10.6 %; Neutrophils # (auto) 6.43 K/uL (1.40-6.50); Platelet Count 106 K/uL (130-400); RDW Coefficient of Variation 14.5 % (11.5-14.5); RDW Standard Deviation 51.4 fL (36.4-46.3); Red Blood Count 5.21 M/uL (4.70-6.10); White Blood Count 10.05 K/ul (4.8-10.8)
[2023-10-05 07:04] LABS: BUN Creatinine Ratio 13.3 (10-20); Calcium 8.5 mg/dl (8.6-10.3); Est GFR (African American) 79.2 ml/min; Est GFR (Non-African American) 68.3 ml/min; Magnesium 1.9 mg/dl (1.7-2.4); Phosphorus 3.2 mg/dl (2.5-4.9); Potassium 3.8 mmol/L (3.5-5.1)
[2023-10-05 07:52] LABS: INR 2.8 (0.9-1.1); Prothrombin Time 28.7 Seconds (9.0-12.0)
--- NOTE | 2023-10-05 15:55 | Hospitalist Progress Note ---
Date of Service October 05, 2023 Assessment & Plan (1) Hepatic encephalopathy: Plan: 62-year-old male with past medical history significant for type 2 diabetes, history of hepatic encephalopathy, hyperlipidemia, venous insufficiency, history of liver failure, history of acquired absence of kidney, history of BPH, history of UTI, history of gout arthropathy, history of generalized convulsive epilepsy, was brought in by his sister because of shakiness and ambulatory dysfunction. As per sister patient lives at his home and also frequently lives at her place also. He ambulates with a walker. Lately is having some difficulty ambulating and feeling weak. Last night he was shaky and having difficulty ambulation and the sister brought to the hospital because sometimes patient gets sick very fast. He is taking his lactulose. Having 4-5 bowel movements daily. Denies any blood in the stools. Normal micturition. Denies any fevers. Patient current drowsy but arousable and answers appropriately. Denies chest pain or shortness of breath. No abdominal pain. Has chronic neck pain and back pain. Has some mild headache. Has some some runny nose and sore throat and some cough. Appetite is okay. Currently hemodynamics okay. Possible another episode of hepatic encephalopathy Came because of shakiness and ambulatory dysfunction Ammonia level was high at 107 on admission and today it has decreased to 79 Received lactulose in the ER and is being continued Has been having bowel movements-will need to have 2-3 loose stools daily Depakote and Dilantin levels are okay Will get PT/ OT eval Family refused to stop Depakote for high ammonia levels in the past Clinically a little better-will continue with the current management Diabetes type 2 Hold home p.o. medications Will check hemoglobin A1c Has been put on Lantus 20 units twice daily and also on sliding scale Blood sugar has been running high Will monitor History of seizures Continue home Depakote, Dilantin and topiramate Phenytoin and valproic acid levels are within normal range Topiramate level is pending BPH On Flomax and Proscar Monitor for urinary retention Lower extremity edema Venous insufficiency Continue home Lasix Monitor for volume overload Gout On allopurinol 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 On Coumadin Follow PT/INR Thrombocytopenia Platelets 113 Chronic Will follow labs DVT prophylaxis On Coumadin Will follow INR-remains therapeutic and 2.8 Solitary kidney Disposition Med/tele Full code Admission and Anticipated Discharge Date Admission Date: October 04, 2023 Subjective October 05, 2023 The patient was seen and examined in medical telemetry unit He has been feeling better but complains pain at the back Bowel is moving but the abdomen is distended remains soft Still has shaking episodes but seems to be much improved Denies any other acute distress Review of Systems Review of Systems: All systems reviewed and are unremarkable except as noted below Physical Exam Physical Exam: Lying in bed with minimal distress due to abdominal discomfort Constitutional: well developed, well nourished, + ill appearing and + obese Eyes: PERRL, conjunctivae normal, anicteric sclerae ENMT: external ear and nose normal, oropharynx normal Neck: trachea midline, no thyromegaly Respiratory: no respiratory distress Auscultation: lungs clear to auscultation bilaterally and + diminished lung sounds Cardiovascular: Rate/Rhythm: regular rate, regular rhythm and + tachycardic Heart Sounds: normal S1 and normal S2; no murmur Extremities: + edema (1+ edema bilaterally) Gastrointestinal (Abdomen): Inspection/Auscultation: + abdomen distended and normal bowel sounds Percussion/Palpation: + abdomen tender (Mildly tender all over) and abdomen soft Musculoskeletal: No acute arthritis involving any of the joint Neurologic: normal touch/pain/proprioception and moves all extremities; no focal motor deficits Occasional shaking movement involving the extremities. No hepatic flap Lymphatic: no cervical or axillary lymphadenopathy Results & Data Results & Data Vital Signs (Past 12 Hours) Vital Signs Temp Pulse Pulse Resp BP Pulse Ox O2 Del Method 10/05/23 14:49 36.7 C 112 H 18 144/76 H 93 Room Air 10/05/23 11:33 37.3 C 109 H 18 154/82 H 92 Room Air 10/05/23 07:47 37.4 C 112 H 18 173/82 H 96 Room Air 10/05/23 05:57 107 H Laboratory Results Short CBC 10/05/23 Range/Units 06:28 WBC 10.05 (4.8-10.8) K/ul Hgb 18.0 (14.0-18.0) g/dl Hct 50.1 (42.0-52.0) % Plt Count 106 L (130-400) K/uL BMP 10/05/23 06:28 Sodium 139 Potassium 3.8 Chloride 106 Carbon Dioxide 21 BUN 15 Creatinine 1.13 Glucose 310 H* Calcium 8.5 L Medications Administered Current Inpatient Medications Allopurinol (Allopurinol 300 Mg Tab) 450 mg PO DAILY [facility] Stop: 11/03/23 08:59 Last Admin: 10/05/23 08:43 Dose: 450 mg Atorvastatin Calcium (Atorvastatin 40 Mg Tab) 80 mg PO DAILY [facility] Stop: 11/03/23 08:59 Last Admin: 10/05/23 08:44 Dose: 80 mg Calcium/Vitamin D (Calcium 600mg + Vit D 400 Iu Tab) 1 tab PO BID [facility] Stop: 11/03/23 08:59 Last Admin: 10/05/23 08:42 Dose: 1 tab Dextrose (Dextrose 50% 50 Ml Syringe) 25 - 50 ml IV UD PRN; Protocol PRN Reason: Hypoglycemia Protocol Stop: 11/03/23 05:45 Divalproex Sodium (Divalproex Delay Release 500 Mg Tab) 1,000 mg PO BID [facility] Stop: 11/03/23 08:59 Last Admin: 10/05/23 08:43 Dose: 1,000 mg Divalproex Sodium (Divalproex Delay Release 500 Mg Tab) 500 mg PO DAILY@1500 [facility] Stop: 11/03/23 14:59 Last Admin: 10/05/23 14:53 Dose: 500 mg Docusate Sodium (Docusate Sodium 100 Mg Cap) 100 mg PO BID [facility] Stop: 11/03/23 08:59 Last Admin: 10/05/23 08:45 Dose: 100 mg Finasteride (Finasteride 5 Mg Tab) 5 mg PO DAILY [facility] Stop: 11/03/23 08:59 Last Admin: 10/05/23 08:46 Dose: 5 mg Furosemide (Furosemide 20 Mg Tab) 20 mg PO DAILY [facility] Stop: 11/03/23 08:59 Last Admin: 10/05/23 08:46 Dose: 20 mg Gabapentin (Gabapentin 400 Mg Cap) 400 mg PO HS [facility] Stop: 11/03/23 20:59 Last Admin: 10/04/23 20:14 Dose: 400 mg Gabapentin (Gabapentin 100 Mg Cap) 100 mg PO BID@0900,1400 [facility] Stop: 11/03/23 08:59 Last Admin: 10/05/23 13:39 Dose: 100 mg Glucagon (Glucagon For Inj 1 Mg Vial) 1 mg SQ UD PRN; Protocol PRN Reason: Hypoglycemia Protocol Stop: 11/03/23 05:45 Glucose (Glucose 10 Tab/Tube) 4 - 8 tab PO UD PRN; Protocol PRN Reason: Hypoglycemia Treatment Stop: 11/03/23 05:45 Glucose (Glucose 40% Gel 15 Gm Tube) 15 - 30 gm PO UD PRN; Protocol PRN Reason: Hypoglycemia Protocol Stop: 11/03/23 05:45 Insulin Aspart (Insulin Aspart Per Unit Charge) 0 units SC ACHS [facility] Stop: 11/03/23 07:29 Last Admin: 10/05/23 12:55 Dose: 15 units Insulin Glargine (Lantus Per Unit Charge) 20 units SQ BID [facility] Stop: 11/04/23 20:59 Lactulose (Lactulose Syrup 30 Gm/45 Ml Udp) 30 gm PO QID [facility] Stop: 11/03/23 08:59 Last Admin: 10/05/23 12:59 Dose: 30 gm Miscellaneous (Carbohydrates For Hypoglycemia ) 15 - 30 gm PO UD PRN PRN Reason: Hypoglycemia Protocol Stop: 11/03/23 05:45 Multivitamins (Multivitamin Tab) 1 tab PO DAILY [facility] Stop: 11/03/23 08:59 Last Admin: 10/05/23 08:44 Dose: 1 tab Nitroglycerin (Nitroglycerin Sl 0.4 Mg/Tab Tab) 0.4 mg SL Q5M PRN PRN Reason: Chest Pain Stop: 11/03/23 05:45 Phenytoin Sodium (Phenytoin Sodium Er 100 Mg Cap) 400 mg PO BID [facility] Stop: 11/03/23 08:59 Last Admin: 10/05/23 08:44 Dose: 400 mg Potassium Chloride (Potassium Chloride Crtab 20 Meq Tabcr) 40 meq PO DAILY [facility] Stop: 11/03/23 08:59 Last Admin: 10/05/23 08:42 Dose: 40 meq Potassium Phosphate (Pot Phosphate Monobasic W/ Sod Tab) 2 tab PO QID [facility] Stop: 10/06/23 09:01 Last Admin: 10/05/23 13:00 Dose: 2 tab Tamsulosin HCl (Tamsulosin Hcl 0.4 Mg Cap) 0.4 mg PO HS [facility] Stop: 11/03/23 20:59 Last Admin: 10/04/23 20:13 Dose: 0.4 mg Topiramate (Topiramate 100 Mg Tab) 200 mg PO BID [facility] Stop: 11/03/23 08:59 Last Admin: 10/05/23 08:44 Dose: 200 mg Vitamin D (Cholecalciferol 25 Mcg (1000 Units) Tab) 25 mcg PO DAILY [facility] Stop: 11/03/23 08:59 Last Admin: 10/05/23 08:45 Dose: 25 mcg Warfarin Sodium (Warfarin Sod 5 Mg Tab) 5 mg PO SuTuWeThSa@1600 [facility] Stop: 11/04/23 15:59 Warfarin Sodium (Warfarin Sod 7.5 Mg Tab) 7.5 mg PO MoFr@1600 [facility] Stop: 11/03/23 15:59 Last Admin: 10/04/23 14:44 Dose: 7.5 mg
[2023-10-05] MEDS: WARFARIN SOD 5 MG TAB PO SCH (16:38)
[2023-10-05] MEDS: LANTUS PER UNIT CHARGE SQ SCH (20:44)
[2023-10-05] MEDS: ACETAMINOPHEN 325 MG TAB PO PRN (23:11)
[2023-10-06 01:25] LABS: Appearance Urine Clear (Clear); Bacteria Urine Automated Negative (Negative); Bilirubin Urine Negative (Negative); Blood Urine Negative (Negative); Cast Urine Automated 0 /lpf (0-5); Color Urine Yellow; Epithelial Cell Urine Auto 0-5 /lpf (0-5); Glucose Urine UA 3+ (Negative); Ketones Urine Negative (Negative); Leukocyte Esterase Urine Negative (Negative); Nitrite Urine Negative (Negative); Protein Urine 2+ (Negative); RBC Urine Automated 0-4 /hpf (0-4); Specific Gravity Urine 1.028 (1.000-1.030); Urobilinogen Urine Negative (Negative); WBC Urine Automated 0 /hpf (0-5); pH Urine 5.5 (4.5-7.5)
[2023-10-06 07:28] LABS: Albumin Level 3.4 gm/dl (3.4-5.0); Bilirubin,Total 0.5 mg/dl (0.2-1.0); Calcium 7.6 mg/dl (8.6-10.3); Potassium 3.7 mmol/L (3.5-5.1)
[2023-10-06 07:34] LABS: Albumin Globulin Ratio 1.2 (0.9-2); Creatinine Clr Calc Pharmacy 100.1 ml/min; Est GFR (African American) 91.8 ml/min; Est GFR (Non-African American) 79.2 ml/min; Globulin 2.9 gm/dl (2.5-4.0); Total Protein 6.3 gm/dl (6.0-8.3)
[2023-10-06 07:51] LABS: INR 4.1 (0.9-1.1); Prothrombin Time 40.7 Seconds (9.0-12.0)
[2023-10-06] MEDS: FUROSEMIDE 40 MG/4 ML VIAL IV ONE (08:55)
--- NOTE | 2023-10-06 09:41 | Ultrasound Report ---
US abdomen ltd ascites HISTORY: 62 years-old Male Ascites follow-up study to patient with history of ascites COMPARISON: CT 06/28/2021 TECHNIQUE: Multiple real-time sonographic images of the abdomen were obtained assessing grayscale vincent earance FINDINGS/IMPRESSION: No ascites identified within the abdomen or pelvis. ACT 112: Negative or not required by law. The above report was generated using voice recognition software. It may contain grammatical, syntax o r spelling errors. Electronically signed by: Chito Chapman M.D. 10/06/2023 9:40 AM
[2023-10-06 09:48] LABS: Hematocrit (blood only) 43.3 % (42.0-52.0); Hemoglobin 15.2 g/dl (14.0-18.0); Mean Corpuscular Hemoglobin 33.8 pg (25.0-34.0); Mean Corpuscular Hgb Conc 35.1 g/dL (32.0-36.0); Mean Corpuscular Volume 96.2 fL (80.0-100.0); Mean Platelet Volume 9.6 fL (9.4-12.4); Platelet Count 93 K/uL (130-400); RDW Coefficient of Variation 14.2 % (11.5-14.5); RDW Standard Deviation 49.9 fL (36.4-46.3); White Blood Count 7.18 K/ul (4.8-10.8)
[2023-10-06 09:49] LABS: Basophils # (auto) 0.03 K/uL (0.00-0.20); Basophils % (auto) 0.4 %; Eosinophils # (auto) 0.08 K/uL (0.00-0.50); Eosinophils % (auto) 1.1 %; Immature Granulocytes # (auto) 0.03 K/uL (0.01-0.20); Immature Granulocytes % (auto) 0.4 %; Lymphocytes % (auto) 30.6 %; Monocytes # (auto) 0.95 K/uL (0.11-0.59); Monocytes % (auto) 13.2 %; Neutrophils # (auto) 3.89 K/uL (1.40-6.50); Neutrophils % (auto) 54.3 %
--- NOTE | 2023-10-06 14:23 | Hospitalist Progress Note ---
Date of Service October 06, 2023 Assessment & Plan (1) Hepatic encephalopathy: Plan: 62-year-old male with past medical history significant for type 2 diabetes, history of hepatic encephalopathy, hyperlipidemia, venous insufficiency, history of liver failure, history of acquired absence of kidney, history of BPH, history of UTI, history of gout arthropathy, history of generalized convulsive epilepsy, was brought in by his sister because of shakiness and ambulatory dysfunction. As per sister patient lives at his home and also frequently lives at her place also. He ambulates with a walker. Lately is having some difficulty ambulating and feeling weak. Last night he was shaky and having difficulty ambulation and the sister brought to the hospital because sometimes patient gets sick very fast. He is taking his lactulose. Having 4-5 bowel movements daily. Denies any blood in the stools. Normal micturition. Denies any fevers. Patient current drowsy but arousable and answers appropriately. Denies chest pain or shortness of breath. No abdominal pain. Has chronic neck pain and back pain. Has some mild headache. Has some some runny nose and sore throat and some cough. Appetite is okay. Currently hemodynamics okay. Possible another episode of hepatic encephalopathy Came because of shakiness and ambulatory dysfunction Ammonia level was high at 107 on admission and today it has decreased to 79 Received lactulose in the ER and is being continued Has been having bowel movements-will need to have 2-3 loose stools daily Depakote and Dilantin levels are okay Will get PT/ OT eval Family refused to stop Depakote for high ammonia levels in the past Clinically much better and does not seems to be neck any acute confusion Has had fever last night and the blood cultures have been taken Ultrasound of the abdomen did not show any ascites and no evidence of any infection as of yet We will try to monitor vitals and also repeat CBC tomorrow Diabetes type 2 Hold home p.o. medications Will check hemoglobin A1c Has been put on Lantus 20 units twice daily and also on sliding scale Blood sugar has been running high Blood sugar seems to be improving History of seizures Continue home Depakote, Dilantin and topiramate Phenytoin and valproic acid levels are within normal range Topiramate level is pending BPH On Flomax and Proscar Monitor for urinary retention Lower extremity edema Venous insufficiency Continue home Lasix Monitor for volume overload Gout On allopurinol 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 On Coumadin Follow PT/INR Thrombocytopenia Platelets 113 Chronic Will follow labs DVT prophylaxis On Coumadin Will follow INR-remains therapeutic and 2.8 Solitary kidney Disposition Med/tele Full code Admission and Anticipated Discharge Date Admission Date: October 04, 2023 Subjective October 05, 2023 The patient was seen and examined in medical telemetry unit He has been feeling better but complains pain at the back Bowel is moving but the abdomen is distended remains soft Still has shaking episodes but seems to be much improved Denies any other acute distress 10/06/2023 The patient was seen and examined in medical telemetry unit He has had a fever of 38 C last night Does not have any urinary symptoms, no cough and no shortness of breath and no ascites Denies any abdominal pain, nausea no vomiting Leg swelling has been improving Review of Systems Review of Systems: All systems reviewed and are unremarkable except as noted below Physical Exam Physical Exam: Lying in bed with minimal distress due to abdominal discomfort Constitutional: well developed, well nourished, + ill appearing and + obese Eyes: PERRL, conjunctivae normal, anicteric sclerae ENMT: external ear and nose normal, oropharynx normal Neck: trachea midline, no thyromegaly Respiratory: no respiratory distress Auscultation: lungs clear to auscultation bilaterally and + diminished lung sounds Cardiovascular: Rate/Rhythm: regular rate, regular rhythm and + tachycardic Heart Sounds: normal S1 and normal S2; no murmur Extremities: + edema (1+ ed bev bilaterally) Gastrointestinal (Abdomen): Inspection/Auscultation: + abdomen distended and normal bowel sounds Percussion/Palpation: + abdomen tender (Mildly tender all over) and abdomen soft Musculoskeletal: No acute arthritis involving any of the joint Neurologic: normal touch/pain/proprioception and moves all extremities; no focal motor deficits Lymphatic: no cervical or axillary lymphadenopathy Results & Data Results & Data Vital Signs (Past 12 Hours) Vital Signs Temp Pulse Pulse Resp BP Pulse Ox O2 Del Method 10/06/23 11:54 36.9 C 101 H 18 151/84 H 95 Room Air 10/06/23 07:34 37.2 C 99 H 18 153/84 H 95 Room Air 10/06/23 07:08 Room Air 10/06/23 05:57 97 H Laboratory Results Short CBC 10/06/23 Range/Units 07:59 WBC 7.18 (4.8-10.8) K/ul Hgb 15.2 (14.0-18.0) g/dl Hct 43.3 (42.0-52.0) % Plt Count 93 L (130-400) K/uL BMP 10/06/23 06:32 Sodium 137 Potassium 3.7 Chloride 108 H Carbon Dioxide 20 L BUN 17 Creatinine 1.00 Glucose 244 H Calcium 7.6 L Liver Function 10/06/23 Range/Units 06:32 Total Bilirubin 0.5 (0.2-1.0) mg/dl AST 39 (13-39) U/L ALT 30 (7-52) U/L Alkaline Phosphatase 67 (34-104) U/L Albumin 3.4 (3.4-5.0) gm/dl Urine 10/06/23 Range/Units 01:00 Urine Color Yellow Urine Appearance Clear (Clear) Urine pH 5.5 (4.5-7.5) Ur Specific [place] 1.028 (1.000-1.030) Urine Protein 2+ H (Negative) Urine Glucose (UA) 3+ H (Negative) Medications Administered Current Inpatient Medications Acetaminophen (Acetaminophen 325 Mg Tab) 650 mg PO Q6H PRN PRN Reason: Pain or Fever Stop: 11/04/23 23:00 Last Admin: 10/06/23 14:07 Dose: 650 mg Allopurinol (Allopurinol 300 Mg Tab) 450 mg PO DAILY [facility] Stop: 11/03/23 08:59 Last Admin: 10/06/23 08:43 Dose: 450 mg Atorvastatin Calcium (Atorvastatin 40 Mg Tab) 80 mg PO DAILY [facility] Stop: 11/03/23 08:59 Last Admin: 10/06/23 08:46 Dose: 80 mg Calcium/Vitamin D (Calcium 600mg + Vit D 400 Iu Tab) 1 tab PO BID [facility] Stop: 11/03/23 08:59 Last Admin: 10/06/23 08:46 Dose: 1 tab Dextrose (Dextrose 50% 50 Ml Syringe) 25 - 50 ml IV UD PRN; Protocol PRN Reason: Hypoglycemia Protocol Stop: 11/03/23 05:45 Divalproex Sodium (Divalproex Delay Release 500 Mg Tab) 1,000 mg PO BID [facility] Stop: 11/03/23 08:59 Last Admin: 10/06/23 08:47 Dose: 1,000 mg Divalproex Sodium (Divalproex Delay Release 500 Mg Tab) 500 mg PO DAILY@1500 [facility] Stop: 11/03/23 14:59 Last Admin: 10/06/23 14:02 Dose: 500 mg Docusate Sodium (Docusate Sodium 100 Mg Cap) 100 mg PO BID [facility] Stop: 11/03/23 08:59 Last Admin: 10/06/23 08:54 Dose: 100 mg Finasteride (Finasteride 5 Mg Tab) 5 mg PO DAILY [facility] Stop: 11/03/23 08:59 Last Admin: 10/06/23 08:45 Dose: 5 mg Furosemide (Furosemide 20 Mg Tab) 20 mg PO DAILY [facility] Stop: 11/03/23 08:59 Last Admin: 10/06/23 08:45 Dose: 20 mg Gabapentin (Gabapentin 400 Mg Cap) 400 mg PO HS [facility] Stop: 11/03/23 20:59 Last Admin: 10/05/23 20:57 Dose: 400 mg Gabapentin (Gabapentin 100 Mg Cap) 100 mg PO BID@0900,1400 [facility] Stop: 11/03/23 08:59 Last Admin: 10/06/23 14:01 Dose: 100 mg Glucagon (Glucagon For Inj 1 Mg Vial) 1 mg SQ UD PRN; Protocol PRN Reason: Hypoglycemia Protocol Stop: 11/03/23 05:45 Glucose (Glucose 10 Tab/Tube) 4 - 8 tab PO UD PRN; Protocol PRN Reason: Hypoglycemia Treatment Stop: 11/03/23 05:45 Glucose (Glucose 40% Gel 15 Gm Tube) 15 - 30 gm PO UD PRN; Protocol PRN Reason: Hypoglycemia Protocol Stop: 11/03/23 05:45 Insulin Aspart (Insulin Aspart Per Unit Charge) 0 units SC ACHS [facility] Stop: 11/03/23 07:29 Last Admin: 10/06/23 12:56 Dose: 15 units Insulin Glargine (Lantus Per Unit Charge) 20 units SQ BID [facility] Stop: 11/04/23 20:59 Last Admin: 10/06/23 08:55 Dose: 20 units Lactulose (Lactulose Syrup 30 Gm/45 Ml Udp) 30 gm PO QID [facility] Stop: 11/03/23 08:59 Last Admin: 10/06/23 12:57 Dose: 30 gm Miscellaneous (Carbohydrates For Hypoglycemia ) 15 - 30 gm PO UD PRN PRN Reason: Hypoglycemia Protocol Stop: 11/03/23 05:45 Multivitamins (Multivitamin Tab) 1 tab PO DAILY [facility] Stop: 11/03/23 08:59 Last Admin: 10/06/23 08:43 Dose: 1 tab Nitroglycerin (Nitroglycerin Sl 0.4 Mg/Tab Tab) 0.4 mg SL Q5M PRN PRN Reason: Chest Pain Stop: 11/03/23 05:45 Phenytoin Sodium (Phenytoin Sodium Er 100 Mg Cap) 400 mg PO BID [facility] Stop: 11/03/23 08:59 Last Admin: 10/06/23 08:47 Dose: 400 mg Potassium Chloride (Potassium Chloride Crtab 20 Meq Tabcr) 40 meq PO DAILY [facility] Stop: 11/03/23 08:59 Last Admin: 10/06/23 08:55 Dose: 40 meq Tamsulosin HCl (Tamsulosin Hcl 0.4 Mg Cap) 0.4 mg PO HS [facility] Stop: 11/03/23 20:59 Last Admin: 10/05/23 20:56 Dose: 0.4 mg Topiramate (Topiramate 100 Mg Tab) 200 mg PO BID [facility] Stop: 11/03/23 08:59 Last Admin: 10/06/23 08:48 Dose: 200 mg Vitamin D (Cholecalciferol 25 Mcg (1000 Units) Tab) 25 mcg PO DAILY [facility] Stop: 11/03/23 08:59 Last Admin: 10/06/23 08:44 Dose: 25 mcg Warfarin Sodium (Warfarin Sod 5 Mg Tab) 5 mg PO SuTuWeThSa@1600 [facility] Stop: 11/04/23 15:59 Last Admin: 10/05/23 16:38 Dose: 5 mg Warfarin Sodium (Warfarin Sod 7.5 Mg Tab) 7.5 mg PO MoFr@1600 [facility] Stop: 11/03/23 15:59 Last Admin: 10/04/23 14:44 Dose: 7.5 mg
[2023-10-07 07:40] LABS: INR 1.7 (0.9-1.1); Prothrombin Time 18.4 Seconds (9.0-12.0)
[2023-10-07 08:26] LABS: Estimated Average Glucose 266 mg/dl; Hemoglobin A1C 10.9 % (4.5-5.6)
[2023-10-07 10:00] LABS: BUN Creatinine Ratio 19.4 (10-20); Calcium 8.2 mg/dl (8.6-10.3); Creatinine Clr Calc Pharmacy 97.2 ml/min; Est GFR (African American) 88.6 ml/min; Est GFR (Non-African American) 76.4 ml/min; Potassium 3.5 mmol/L (3.5-5.1)
[2023-10-07] MEDS: DICLOFENAC SOD 1% GEL 100 GM TUBE EXT SCH (13:34)
[2023-10-07] MEDS ORDERED: PHARMACY GLYCEMIC MGMT CONSULT PRN (14:19)
--- NOTE | 2023-10-07 14:22 | Hospitalist Progress Note ---
Date of Service October 07, 2023 Assessment & Plan (1) Hepatic encephalopathy: Plan: 62-year-old male with past medical history significant for type 2 diabetes, history of hepatic encephalopathy, hyperlipidemia, venous insufficiency, history of liver failure, history of acquired absence of kidney, history of BPH, history of UTI, history of gout arthropathy, history of generalized convulsive epilepsy, was brought in by his sister because of shakiness and ambulatory dysfunction. As per sister patient lives at his home and also frequently lives at her place also. He ambulates with a walker. Lately is having some difficulty ambulating and feeling weak. Last night he was shaky and having difficulty ambulation and the sister brought to the hospital because sometimes patient gets sick very fast. He is taking his lactulose. Having 4-5 bowel movements daily. Denies any blood in the stools. Normal micturition. Denies any fevers. Patient current drowsy but arousable and answers appropriately. Denies chest pain or shortness of breath. No abdominal pain. Has chronic neck pain and back pain. Has some mild headache. Has some some runny nose and sore throat and some cough. Appetite is okay. Currently hemodynamics okay. Possible another episode of hepatic encephalopathy Came because of shakiness and ambulatory dysfunction Ammonia level was high at 107 on admission and today it has decreased to 79 Received lactulose in the ER and is being continued Has been having bowel movements-will need to have 2-3 loose stools daily Depakote and Dilantin levels are okay Will get PT/ OT eval--- recommended continue PT while in the hospital Family refused to stop Depakote for high ammonia levels in the past Clinically much better and does not seems to be neck any acute confusion Has had fever last night and the blood cultures have been taken Ultrasound of the abdomen did not show any ascites and no evidence of any infection as of yet No more fever and or chills and he has been feeling much better clinically Denies any more confusion Ammonia level remains elevated at 109 Will continue lactulose and recheck tomorrow otherwise remains medically stable to be discharged Diabetes type 2 Hold home p.o. medications Will check hemoglobin [id number] at 10.9 Has been put on Lantus 20 units twice daily and also on sliding scale Blood sugar has been running high Diabetes is not controlled and her last for glycemic pharmacist to help History of seizures Continue home Depakote, Dilantin and topiramate Phenytoin and valproic acid levels are within normal range Topiramate level is pending BPH On Flomax and Proscar Monitor for urinary retention Lower extremity edema Venous insufficiency Continue home Lasix Monitor for volume overload Gout On allopurinol 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 On Coumadin Follow PT/INR Thrombocytopenia Platelets 113 Chronic Will follow labs DVT prophylaxis On Coumadin Will follow INR-remains therapeutic and 2.8 Solitary kidney Disposition Med/tele Full code Await further PT recommendation Likely discharge in a day or 2 Admission and Anticipated Discharge Date Admission Date: October 04, 2023 Subjective October 05, 2023 The patient was seen and examined in medical telemetry unit He has been feeling better but complains pain at the back Bowel is moving but the abdomen is distended remains soft Still has shaking episodes but seems to be much improved Denies any other acute distress 10/06/2023 The patient was seen and examined in medical telemetry unit He has had a fever of 38 C last night Does not have any urinary symptoms, no cough and no shortness of breath and no ascites Denies any abdominal pain, nausea no vomiting Leg swelling has been improving 10/07/2023 The patient was seen and examined in medical telemetry unit He has been feeling much better and does not have any more confusion Bowel has been moving about 2 or 3 times a day but ammonia level remains high at 109 Denies any other significant symptoms Review of Systems Review of Systems: All systems reviewed and are unremarkable except as noted below Physical Exam Physical Exam: Sitting on a chair without any acute distress Constitutional: well developed, well nourished, + ill appearing and + obese Eyes: PERRL, conjunctivae normal, anicteric sclerae ENMT: external ear and nose normal, oropharynx normal Neck: trachea midline, no thyromegaly Respiratory: no respiratory distress Auscultation: lungs clear to auscultation bilaterally and + diminished lung sounds Cardiovascular: Rate/Rhythm: regular rate, regular rhythm and + tachycardic Heart Sounds: normal S1 and normal S2; no murmur Extremities: + edema (1+ edema bilaterally) Gastrointestinal (Abdomen): Inspection/Auscultation: + abdomen distended and normal bowel sounds Percussion/Palpation: + abdomen tender (Mildly tender all over) and abdomen soft Musculoskeletal: No acute arthritis involving any of the joint. Minimal tenderness noted at the left knee and adjoining thigh area Neurologic: normal touch/pain/proprioception and moves all extremities; no focal motor deficits Lymphatic: no cervical or axillary lymphadenopathy Results & Data Results & Data Vital Signs (Past 12 Hours) Vital Signs Temp Pulse Pulse Resp BP BP Pulse Ox 10/07/23 11:48 36.6 C 103 H 18 131/79 95 10/07/23 07:52 36.7 C 96 H 18 136/86 94 10/07/23 07:19 10/07/23 06:19 95 H 10/07/23 03:00 98 H 18 163/83 H 95 10/07/23 02:20 101 H O2 Del Method 10/07/23 11:48 Room Air 10/07/23 07:52 Room Air 10/07/23 07:19 Room Air 10/07/23 06:19 10/07/23 03:00 Room Air 10/07/23 02:20 Laboratory Results BMP 10/07/23 09:18 Sodium 136 Potassium 3.5 Chloride 105 Carbon Dioxide 22 BUN 20 Creatinine 1.03 Glucose 300 H Calcium 8.2 L Medications Administered Current Inpatient Medications Acetaminophen (Acetaminophen 325 Mg Tab) 650 mg PO Q6H PRN PRN Reason: Pain or Fever Stop: 11/04/23 23:00 Last Admin: 10/07/23 07:20 Dose: 650 mg Allopurinol (Allopurinol 300 Mg Tab) 450 mg PO DAILY [facility] Stop: 11/03/23 08:59 Last Admin: 10/07/23 08:35 Dose: 450 mg Atorvastatin Calcium (Atorvastatin 40 Mg Tab) 80 mg PO DAILY [facility] Stop: 11/03/23 08:59 Last Admin: 10/07/23 08:37 Dose: 80 mg Calcium/Vitamin D (Calcium 600mg + Vit D 400 Iu Tab) 1 tab PO BID [facility] Stop: 11/03/23 08:59 Last Admin: 10/07/23 08:35 Dose: 1 tab Dextrose (Dextrose 50% 50 Ml Syringe) 25 - 50 ml IV UD PRN; Protocol PRN Reason: Hypoglycemia Protocol Stop: 11/03/23 05:45 Diclofenac Sodium (Diclofenac Sod 1% Gel 100 Gm Tube) 2 gm EXT TID [facility]; Protocol Stop: 11/06/23 13:59 Last Admin: 10/07/23 13:34 Dose: 2 gm Divalproex Sodium (Divalproex Delay Release 500 Mg Tab) 1,000 mg PO BID [facility] Stop: 11/03/23 08:59 Last Admin: 10/07/23 08:37 Dose: 1,000 mg Divalproex Sodium (Divalproex Delay Release 500 Mg Tab) 500 mg PO DAILY@1500 [facility] Stop: 11/03/23 14:59 Last Admin: 10/06/23 14:02 Dose: 500 mg Docusate Sodium (Docusate Sodium 100 Mg Cap) 100 mg PO BID [facility] Stop: 11/03/23 08:59 Last Admin: 10/07/23 08:38 Dose: Not Given Finasteride (Finasteride 5 Mg Tab) 5 mg PO DAILY [facility] Stop: 11/03/23 08:59 Last Admin: 10/07/23 08:37 Dose: 5 mg Furosemide (Furosemide 20 Mg Tab) 20 mg PO DAILY [facility] Stop: 11/03/23 08:59 Last Admin: 10/07/23 08:36 Dose: 20 mg Gabapentin (Gabapentin 400 Mg Cap) 400 mg PO HS [facility] Stop: 11/03/23 20:59 Last Admin: 10/06/23 20:55 Dose: 400 mg Gabapentin (Gabapentin 100 Mg Cap) 100 mg PO BID@0900,1400 [facility] Stop: 11/03/23 08:59 Last Admin: 10/07/23 13:34 Dose: 100 mg Glucagon (Glucagon For Inj 1 Mg Vial) 1 mg SQ UD PRN; Protocol PRN Reason: Hypoglycemia Protocol Stop: 11/03/23 05:45 Glucose (Glucose 10 Tab/Tube) 4 - 8 tab PO UD PRN; Protocol PRN Reason: Hypoglycemia Treatment Stop: 11/03/23 05:45 Glucose (Glucose 40% Gel 15 Gm Tube) 15 - 30 gm PO UD PRN; Protocol PRN Reason: Hypoglycemia Protocol Stop: 11/03/23 05:45 Insulin Aspart (Insulin Aspart Per Unit Charge) 0 units SC ACHS [facility] Stop: 11/03/23 07:29 Last Admin: 10/07/23 12:42 Dose: 12 units Insulin Glargine (Lantus Per Unit Charge) 20 units SQ BID [facility] Stop: 11/04/23 20:59 Last Admin: 10/07/23 08:33 Dose: 20 units Lactulose (Lactulose Syrup 30 Gm/45 Ml Udp) 30 gm PO QID [facility] Stop: 11/03/23 08:59 Last Admin: 10/07/23 12:42 Dose: 30 gm Miscellaneous (Carbohydrates For Hypoglycemia ) 15 - 30 gm PO UD PRN PRN Reason: Hypoglycemia Protocol Stop: 11/03/23 05:45 Multivitamins (Multivitamin Tab) 1 tab PO DAILY [facility] Stop: 11/03/23 08:59 Last Admin: 10/07/23 08:38 Dose: 1 tab Nitroglycerin (Nitroglycerin Sl 0.4 Mg/Tab Tab) 0.4 mg SL Q5M PRN PRN Reason: Chest Pain Stop: 11/03/23 05:45 Phenytoin Sodium (Phenytoin Sodium Er 100 Mg Cap) 400 mg PO BID [facility] Stop: 11/03/23 08:59 Last Admin: 10/07/23 08:35 Dose: 400 mg Potassium Chloride (Potassium Chloride Crtab 20 Meq Tabcr) 40 meq PO DAILY [facility] Stop: 11/03/23 08:59 Last Admin: 10/07/23 08:40 Dose: 40 meq Tamsulosin HCl (Tamsulosin Hcl 0.4 Mg Cap) 0.4 mg PO HS [facility] Stop: 11/03/23 20:59 Last Admin: 10/06/23 20:55 Dose: 0.4 mg Topiramate (Topiramate 100 Mg Tab) 200 mg PO BID [facility] Stop: 11/03/23 08:59 Last Admin: 10/07/23 08:35 Dose: 200 mg Vitamin D (Cholecalciferol 25 Mcg (1000 Units) Tab) 25 mcg PO DAILY [facility] Stop: 11/03/23 08:59 Last Admin: 10/07/23 08:35 Dose: 25 mcg Warfarin Sodium (Warfarin Sod 5 Mg Tab) 5 mg PO SuTuWeThSa@1600 [facility] Stop: 11/04/23 15:59 Last Admin: 10/05/23 16:38 Dose: 5 mg Warfarin Sodium (Warfarin Sod 7.5 Mg Tab) 7.5 mg PO MoFr@1600 [facility] Stop: 11/03/23 15:59 Last Admin: 10/04/23 14:44 Dose: 7.5 mg
--- NOTE | 2023-10-07 14:54 | Pharmacy Report ---
Pharmacy Glycemic Short Note 2 - Date of Service October 07, 2023 - Glycemic Short BSG Results (Last 24 hours): 10/06/23 10/06/23 10/07/23 17:13 20:12 08:07 Glucose POC Glucose 247 H 243 H 218 H 10/07/23 10/07/23 10/07/23 09:18 12:03 12:04 Glucose 300 H POC Glucose 314 H* 263 H OUTPATIENT ANTIDIABETIC REGIMEN: * glipizide 10mg PO dailyBB * trajenta 5mg PO daily * HbA1c 10.9% (10/06/23) ASSESSMENT: * Eliseo is a 62 YOM admitted with hepatic encephalopathy and a history of T2DM. Pharmacy has been consulted to assist with glycemic management while inpatient. * Fasting BSG this AM significantly elevated, will increase basal regimen by 30% to a weight based stress of 3 * All BSGs above 200, will increase Novolog parameters from a weight based stress of 2 to a weight based stress of 3 * No glycemic stressors noted at this time. PLAN FOR INPATIENT GLYCEMIC CONTROL: * Hold outpatient oral diabetes medications * Basal insulin * Lantus 30 units SQ BID (20 units this AM + 10 units this afternoon) * Bolus insulin * NovoLog per scale ACHS or Q6hrs while NPO * Goal Range: Low 110 mg/dL - High 140 mg/dL * Correction Factor: 15 mg/dL/unit * Nutritional / Prandial insulin per carb ratio of 1 unit per 5 grams CHO consumed
[2023-10-07] MEDS: INSULIN HUMAN REGULAR PER UNIT 5 UNITS in SYRINGE 4.95 ML IV ONE (15:17)
[2023-10-07] MEDS: LANTUS PER UNIT CHARGE SC STA (15:18)
[2023-10-07] MEDS: LANTUS PER UNIT CHARGE SQ SCH (21:05)
[2023-10-08] MEDS: INSULIN ASPART PER UNIT CHARGE SC SCH (01:20)
[2023-10-08 07:10] LABS: Basophils # (auto) 0.02 K/uL (0.00-0.20); Basophils % (auto) 0.3 %; Eosinophils # (auto) 0.21 K/uL (0.00-0.50); Eosinophils % (auto) 3.1 %; Hematocrit (blood only) 39.7 % (42.0-52.0); Hemoglobin 14.5 g/dl (14.0-18.0); Immature Granulocytes # (auto) 0.05 K/uL (0.01-0.20); Immature Granulocytes % (auto) 0.7 %; Lymphocytes # (auto) 2.24 K/uL (1.20-3.40); Lymphocytes % (auto) 32.8 %; Mean Corpuscular Hemoglobin 34.1 pg (25.0-34.0); Mean Corpuscular Hgb Conc 36.5 g/dL (32.0-36.0); Mean Corpuscular Volume 93.4 fL (80.0-100.0); Mean Platelet Volume 10.1 fL (9.4-12.4); Monocytes # (auto) 0.78 K/uL (0.11-0.59); Monocytes % (auto) 11.4 %; Neutrophils # (auto) 3.53 K/uL (1.40-6.50); Neutrophils % (auto) 51.7 %; Platelet Count 107 K/uL (130-400); RDW Coefficient of Variation 13.6 % (11.5-14.5); RDW Standard Deviation 46.8 fL (36.4-46.3); Red Blood Count 4.25 M/uL (4.70-6.10); White Blood Count 6.83 K/ul (4.8-10.8)
[2023-10-08 07:29] LABS: BUN Creatinine Ratio 26.1 (10-20); Calcium 8.1 mg/dl (8.6-10.3); Est GFR (African American) 105.2 ml/min; Est GFR (Non-African American) 90.8 ml/min; Potassium 3.5 mmol/L (3.5-5.1)
[2023-10-08 07:39] LABS: INR 1.6 (0.9-1.1); Prothrombin Time 17.1 Seconds (9.0-12.0)
--- NOTE | 2023-10-08 14:13 | Hospitalist Progress Note ---
Date of Service October 08, 2023 Assessment & Plan (1) Hepatic encephalopathy: Plan: 62-year-old male with past medical history significant for type 2 diabetes, history of hepatic encephalopathy, hyperlipidemia, venous insufficiency, history of liver failure, history of acquired absence of kidney, history of BPH, history of UTI, history of gout arthropathy, history of generalized convulsive epilepsy, was brought in by his sister because of shakiness and ambulatory dysfunction. As per sister patient lives at his home and also frequently lives at her place also. He ambulates with a walker. Lately is having some difficulty ambulating and feeling weak. Last night he was shaky and having difficulty ambulation and the sister brought to the hospital because sometimes patient gets sick very fast. He is taking his lactulose. Having 4-5 bowel movements daily. Denies any blood in the stools. Normal micturition. Denies any fevers. Patient current drowsy but arousable and answers appropriately. Denies chest pain or shortness of breath. No abdominal pain. Has chronic neck pain and back pain. Has some mild headache. Has some some runny nose and sore throat and some cough. Appetite is okay. Currently hemodynamics okay. Possible another episode of hepatic encephalopathy Came because of shakiness and ambulatory dysfunction Ammonia level was high at 107 on admission and today it has decreased to 79 Received lactulose in the ER and is being continued Has been having bowel movements-will need to have 2-3 loose stools daily Depakote and Dilantin levels are okay Will get PT/ OT eval--- recommended continue PT while in the hospital Family refused to stop Depakote for high ammonia levels in the past Clinically much better and does not seems to be neck any acute confusion Has had fever last night and the blood cultures have been taken Ultrasound of the abdomen did not show any ascites and no evidence of any infection as of yet No more fever and or chills and he has been feeling much better clinically Denies any more confusion Ammonia level remains elevated at 109 He has been stable and the confusion is resolved and he is ammonia level is down to 80s Has been having 2 or 3 bowel movements daily and the shakes are improved Diabetes type 2 Hold home p.o. medications Will check hemoglobin [id number] at 10.9 Has been put on Lantus 20 units twice daily and also on sliding scale Blood sugar has been running high Diabetes is not controlled and her last for glycemic pharmacist to help Has been getting Lantus and sliding scale insulin coverage History of seizures Continue home Depakote, Dilantin and topiramate Phenytoin and valproic acid levels are within normal range Topiramate level-1.9 and cannot be flat due to random level BPH On Flomax and Proscar Monitor for urinary retention Lower extremity edema Venous insufficiency Continue home Lasix Monitor for volume overload Leg swelling are not improving and will give another dose of intravenous Lasix today Gout On allopurinol 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 On Coumadin Follow PT/INR Thrombocytopenia Platelets 113 Chronic Will follow labs DVT prophylaxis On Coumadin Will follow INR-remains therapeutic and 2.8 Solitary kidney Disposition Med/tele Full code Await further PT recommendation Likely discharge in a day or 2 [facility] Admission and Anticipated Discharge Date Admission Date: October 04, 2023 Subjective October 05, 2023 The patient was seen and examined in medical telemetry unit He has been feeling better but complains pain at the back Bowel is moving but the abdomen is distended remains soft Still has shaking episodes but seems to be much improved Denies any other acute distress 10/06/2023 The patient was seen and examined in medical telemetry unit He has had a fever of 38 C last night Does not have any urinary symptoms, no cough and no shortness of breath and no ascites Denies any abdominal pain, nausea no vomiting Leg swelling has been improving 10/07/2023 The patient was seen and examined in medical telemetry unit He has been feeling much better and does not have any more confusion Bowel has been moving about 2 or 3 times a day but ammonia level remains high at 109 Denies any other significant symptoms 10/08/2023 The patient was seen and examined in medical telemetry unit He has been feeling much better but has had small nosebleed which stopped spontaneously this morning Denies any other symptoms Has had usual bowel movement and no more confusion Review of Systems Review of Systems: All systems reviewed and are unremarkable except as noted below Physical Exam Physical Exam: Sitting on a chair without any acute distress Constitutional: well developed, well nourished, + ill appearing and + obese Eyes: PERRL, conjunctivae normal, anicteric sclerae ENMT: external ear and nose normal, oropharynx normal Neck: trachea midline, no thyromegaly Respiratory: no respiratory distress Auscultation: lungs clear to auscultation bilaterally and + diminished lung sounds Cardiovascular: Rate/Rhythm: regular rate, regular rhythm and + tachycardic Heart Sounds: normal S1 and normal S2; no murmur Extremities: + edema (1+ edema bilaterally) Gastrointestinal (Abdomen): Inspection/Auscultation: + abdomen distended and normal bowel sounds Percussion/Palpation: + abdomen tender (Mildly tender all over) and abdomen soft Musculoskeletal: No acute arthritis involving any of the joint Neurologic: normal touch/pain/proprioception and moves all extremities; no focal motor deficits Lymphatic: no cervical or axillary lymphadenopathy Results & Data Results & Data Vital Signs (Past 12 Hours) Vital Signs Temp Pulse Pulse Resp BP BP Pulse Ox 10/08/23 11:02 36.9 C 99 H 18 132/76 95 10/08/23 08:11 36.6 C 82 18 122/75 97 10/08/23 06:28 82 10/08/23 03:59 36.6 C 82 20 128/72 97 O2 Del Method 10/08/23 11:02 Room Air 10/08/23 08:11 Room Air 10/08/23 06:28 10/08/23 03:59 Room Air Laboratory Results Short CBC 10/08/23 Range/Units 06:50 WBC 6.83 (4.8-10.8) K/ul Hgb 14.5 (14.0-18.0) g/dl Hct 39.7 L (42.0-52.0) % Plt Count 107 L (130-400) K/uL BMP 10/08/23 06:50 Sodium 140 Potassium 3.5 Chloride 109 H Carbon Dioxide 21 BUN 23 Creatinine 0.88 Glucose 123 H Calcium 8.1 L Medications Administered Current Inpatient Medications Acetaminophen (Acetaminophen 325 Mg Tab) 650 mg PO Q6H PRN PRN Reason: Pain or Fever Stop: 11/04/23 23:00 Last Admin: 10/08/23 13:52 Dose: 650 mg Allopurinol (Allopurinol 300 Mg Tab) 450 mg PO DAILY [facility] Stop: 11/03/23 08:59 Last Admin: 10/08/23 09:30 Dose: 450 mg Atorvastatin Calcium (Atorvastatin 40 Mg Tab) 80 mg PO DAILY [facility] Stop: 11/03/23 08:59 Last Admin: 10/08/23 09:30 Dose: 80 mg Calcium/Vitamin D (Calcium 600mg + Vit D 400 Iu Tab) 1 tab PO BID [facility] Stop: 11/03/23 08:59 Last Admin: 10/08/23 09:29 Dose: 1 tab Dextrose (Dextrose 50% 50 Ml Syringe) 25 - 50 ml IV UD PRN; Protocol PRN Reason: Hypoglycemia Protocol Stop: 11/03/23 05:45 Diclofenac Sodium (Diclofenac Sod 1% Gel 100 Gm Tube) 2 gm EXT TID [facility]; Protocol Stop: 11/06/23 13:59 Last Admin: 10/08/23 13:53 Dose: 2 gm Divalproex Sodium (Divalproex Delay Release 500 Mg Tab) 1,000 mg PO BID [facility] Stop: 11/03/23 08:59 Last Admin: 10/08/23 09:29 Dose: 1,000 mg Divalproex Sodium (Divalproex Delay Release 500 Mg Tab) 500 mg PO DAILY@1500 [facility] Stop: 11/03/23 14:59 Last Admin: 10/07/23 14:46 Dose: 500 mg Docusate Sodium (Docusate Sodium 100 Mg Cap) 100 mg PO BID [facility] Stop: 11/03/23 08:59 Last Admin: 10/08/23 09:31 Dose: 100 mg Finasteride (Finasteride 5 Mg Tab) 5 mg PO DAILY [facility] Stop: 11/03/23 08:59 Last Admin: 10/08/23 09:30 Dose: 5 mg Furosemide (Furosemide 20 Mg Tab) 20 mg PO DAILY [facility] Stop: 11/03/23 08:59 Last Admin: 10/08/23 09:30 Dose: 20 mg Gabapentin (Gabapentin 400 Mg Cap) 400 mg PO HS [facility] Stop: 11/03/23 20:59 Last Admin: 10/07/23 21:03 Dose: 400 mg Gabapentin (Gabapentin 100 Mg Cap) 100 mg PO BID@0900,1400 [facility] Stop: 11/03/23 08:59 Last Admin: 10/08/23 13:53 Dose: 100 mg Glucagon (Glucagon For Inj 1 Mg Vial) 1 mg SQ UD PRN; Protocol PRN Reason: Hypoglycemia Protocol Stop: 11/03/23 05:45 Glucose (Glucose 10 Tab/Tube) 4 - 8 tab PO UD PRN; Protocol PRN Reason: Hypoglycemia Treatment Stop: 11/03/23 05:45 Glucose (Glucose 40% Gel 15 Gm Tube) 15 - 30 gm PO UD PRN; Protocol PRN Reason: Hypoglycemia Protocol Stop: 11/03/23 05:45 Insulin Aspart (Insulin Aspart Per Unit Charge) 0 units SC ACHS [facility] Stop: 11/03/23 07:29 Last Admin: 10/08/23 13:26 Dose: 15 units Insulin Glargine (Lantus Per Unit Charge) 30 units SQ BID [facility] Stop: 11/06/23 20:59 Last Admin: 10/08/23 09:37 Dose: 30 units Lactulose (Lactulose Syrup 30 Gm/45 Ml Udp) 30 gm PO QID [facility] Stop: 11/03/23 08:59 Last Admin: 10/08/23 13:53 Dose: 30 gm Miscellaneous (Carbohydrates For Hypoglycemia ) 15 - 30 gm PO UD PRN PRN Reason: Hypoglycemia Protocol Stop: 11/03/23 05:45 Miscellaneous Information (Pharmacy Glycemic Mgmt Consult) 1 each N/A UD PRN; Protocol PRN Reason: Consult Stop: 11/06/23 14:18 Multivitamins (Multivitamin Tab) 1 tab PO DAILY [facility] Stop: 11/03/23 08:59 Last Admin: 10/08/23 09:32 Dose: 1 tab Nitroglycerin (Nitroglycerin Sl 0.4 Mg/Tab Tab) 0.4 mg SL Q5M PRN PRN Reason: Chest Pain Stop: 11/03/23 05:45 Phenytoin Sodium (Phenytoin Sodium Er 100 Mg Cap) 400 mg PO BID [facility] Stop: 11/03/23 08:59 Last Admin: 10/08/23 09:29 Dose: 400 mg Potassium Chloride (Potassium Chloride Crtab 20 Meq Tabcr) 40 meq PO DAILY [facility] Stop: 11/03/23 08:59 Last Admin: 10/08/23 09:36 Dose: 40 meq Tamsulosin HCl (Tamsulosin Hcl 0.4 Mg Cap) 0.4 mg PO HS [facility] Stop: 11/03/23 20:59 Last Admin: 10/07/23 21:03 Dose: 0.4 mg Topiramate (Topiramate 100 Mg Tab) 200 mg PO BID [facility] Stop: 11/03/23 08:59 Last Admin: 10/08/23 09:29 Dose: 200 mg Vitamin D (Cholecalciferol 25 Mcg (1000 Units) Tab) 25 mcg PO DAILY [facility] Stop: 11/03/23 08:59 Last Admin: 10/08/23 09:30 Dose: 25 mcg Warfarin Sodium (Warfarin Sod 5 Mg Tab) 5 mg PO [id number]@1600 [facility] Stop: 11/04/23 15:59 Last Admin: 10/05/23 16:38 Dose: 5 mg Warfarin Sodium (Warfarin Sod 7.5 Mg Tab) 7.5 mg PO MoFr@1600 [facility] Stop: 11/03/23 15:59 Last Admin: 10/07/23 15:19 Dose: 7.5 mg
[2023-10-08] MEDS: POTASSIUM CHLORIDE CRTAB 20 MEQ TABCR PO STA (15:21)
[2023-10-08] MEDS: HYDROmorphone INJ 0.5 MG/0.5 ML SYR IV STA (15:21)
[2023-10-08] MEDS: FUROSEMIDE 40 MG/4 ML VIAL IV ONE (15:21)
[2023-10-09] MEDS: oxyCODONE HCL IR 5 MG TAB (IMMEDIATE RELEASE) PO STA (06:17)
[2023-10-09 08:25] LABS: Prothrombin Time 20.9 Seconds (9.0-12.0)
[2023-10-09] MEDS: LANTUS PER UNIT CHARGE SQ SCH (09:58)
[2023-10-09] MEDS: COLCHICINE 0.6 MG TAB PO ONE (10:50)
--- NOTE | 2023-10-09 10:59 | XRay Report ---
RIGHT KNEE 2 VIEWS CLINICAL HISTORY: Atraumatic right knee pain. FINDINGS: AP and crosstable lateral views of the right knee are obtained. No prior studies are availa ble for comparison at the time of dictation. The skeletal structures are osteopenic. No fracture is s een. There is mild tricompartmental degenerative joint space narrowing. There are small marginal oste ophytes and patellar enthesophytes. No significant joint effusion is seen. There is mild soft tissue swelling around the knee. A punctate foreign body versus calcification is seen in the suprapatellar s oft tissues. A calcified fabella is incidentally noted. There is advanced atherosclerotic calcificati on of the renal arteries. IMPRESSION: 1. Mild soft tissue swelling with no fracture identified. 2. Osteopenia and degenerative change as above. Electronically signed by: Alfredo Cade M.D. 10/09/2023 10:57 AM
--- NOTE | 2023-10-09 12:44 | Hospitalist Progress Note ---
Date of Service October 09, 2023 Assessment & Plan (1) Hepatic encephalopathy: Plan: 62-year-old male with past medical history significant for type 2 diabetes, history of hepatic encephalopathy, hyperlipidemia, venous insufficiency, history of liver failure, history of acquired absence of kidney, history of BPH, history of UTI, history of gout arthropathy, history of generalized convulsive epilepsy, was brought in by his sister because of shakiness and ambulatory dysfunction. As per sister patient lives at his home and also frequently lives at her place also. He ambulates with a walker. Lately is having some difficulty ambulating and feeling weak. Last night he was shaky and having difficulty ambulation and the sister brought to the hospital because sometimes patient gets sick very fast. He is taking his lactulose. Having 4-5 bowel movements daily. Denies any blood in the stools. Normal micturition. Denies any fevers. Patient current drowsy but arousable and answers appropriately. Denies chest pain or shortness of breath. No abdominal pain. Has chronic neck pain and back pain. Has some mild headache. Has some some runny nose and sore throat and some cough. Appetite is okay. Currently hemodynamics okay. Suspected acute hepatic encephalopathy--POA --CT Head:No evidence of acute intracranial pathology. --ABD USD:No ascites identified within the abdomen or pelvis. Ammonia elevated on presentation Depakote, Dilantin levels and topiramate levels within normal limit Blood cultures negative to date Continue lactulose Family refused to stop Depakote for high ammonia levels in the past Mental status seem to be back to baseline Continue home medications Plan to discharge to rehab facility today DM II Uncontrolled HbA1c 10.9 Hold p.o. medications Continue insulin while hospitalized Monitor BGs Appreciate glycemic pharmacist help H/O Seizures Continue home Depakote, Dilantin and topiramate No seizure activity while hospitalized Right knee pain Likely due to arthritis Right knee x-ray: Mild soft tissue swelling with no fracture identified. Osteopenia and degenerative change as above. Monitor, PT/OT BPH On Flomax and Proscar Monitor for urinary retention Lower extremity edema Chronic Venous insufficiency Continue home Lasix Monitor for volume overload Gout Continue allopurinol 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 On Coumadin Follow PT/INR 2.0 Today Thrombocytopenia Chronic Monitor No bleeding issues Solitary kidney As per records DVT Px: Coumadin Code Status Full Code Disposition Rehab Admission and Anticipated Discharge Date Admission Date: October 04, 2023 Subjective Patient is seen and examined at bedside States having right knee pain intermittently Denies any chest pain, dyspnea, dizziness, nausea, vomiting, abdominal pain No other complaints Plan to discharge reviewed facility today Review of Systems Review of Systems: All systems reviewed & are unremarkable except as noted in Subjective Physical Exam Physical Exam: Physical Exam: Vitals signs as noted above General Appearance:Obese, no apparent distress Head: normocephalic, Atraumatic Eyes: normal inspection, EOMI Neck: supple, Trachea midline Respiratory/Chest: Normal breath sounds, CTA, No accessory muscle use Cardiovascular: S1, S2, No murmur Abdomen/GI:Soft, Non tender, Bowel sounds present Extremities/Musculoskeletal:normal inspection, 1-2+ B/L pedal edema Neurologic/Psych:AAOX3, grossly no focal neurological deficits Skin: normal color, warm Results & Data Results & Data Vital Signs (Past 12 Hours) Vital Signs Temp Pulse Pulse Resp BP BP Pulse Ox 10/09/23 11:18 36.8 C 90 18 129/75 94 10/09/23 09:28 86 10/09/23 07:38 36.8 C 89 18 123/69 96 10/09/23 07:25 10/09/23 03:59 36.7 C 87 18 110/77 98 O2 Del Method 10/09/23 11:18 Room Air 10/09/23 09:28 10/09/23 07:38 Room Air 10/09/23 07:25 Room Air 10/09/23 03:59 Room Air
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
== END 2023-10-09 14:37 | DRG 443 ==
LOC: ED 23:21 → SUATTDRO 10-04 04:47 → EDINP 10-04 04:47 → 2N 10-04 05:46

== ENCOUNTER 2023-11-23 13:11 | Inpatient (IN) ==
[2023-11-23] MEDS: MoRPHine SULFATE 2 MG/ML CARP IV STA (15:08)
[2023-11-23 15:25] LABS: Appearance Urine Clear (Clear); Bacteria Urine Automated None Seen (None Seen); Bilirubin Urine Negative (Negative); Blood Urine 3+ (Negative); Cast Urine Automated 0-2 /lpf (0-2); Color Urine Yellow; Epithelial Cell Urine Auto 0-2 /hpf (0-2); Glucose Urine UA Negative (Negative); Ketones Urine Negative (Negative); Leukocyte Esterase Urine Negative (Negative); Nitrite Urine Negative (Negative); Protein Urine Negative (Negative); RBC Urine Automated 0-2 /hpf (0-2); Specific Gravity Urine 1.012 (1.000-1.030); Urobilinogen Urine Negative (Negative); WBC Urine Automated 0-5 /hpf (0-5)
--- NOTE | 2023-11-23 15:25 | Emergency Department Note ---
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 Phosphatase (34-104) U/L Ammonia (18-72) umol/L Total Creatine Kinase (30-223) U/L Troponin I High Sens (0-20) pg/ml Total Protein (6.0-8.3) gm/dl Albumin (3.4-5.0) gm/dl Globulin (2.5-4.0) gm/dl Albumin/Globulin Ratio (0.9-2) TSH (0.300-4.500) uIu/ml Free T4 (0.61-1.60) ng/dl Urine Color Urine Appearance (Clear) Urine pH (4.5-7.5) Ur Specific [place] (1.000-1.030) Urine Protein (Negative) Urine Glucose (UA) (Negative) Urine Ketones (Negative) Urine Blood (Negative) Urine Nitrite (Negative) Urine Bilirubin (Negative) Urine Urobilinogen (Negative) Ur Leukocyte Esterase (Negative) Urine WBC (Auto) (0-5) /hpf Urine RBC (Auto) (0-2) /hpf U Hyaline Cast (Auto) (0-2) /lpf U Epithel Cells (Auto) (0-2) /hpf Urine Bacteria (Auto) (None Seen) Administered Medications Hydromorphone HCl (Hydromorphone Inj 0.5 Mg/0.5 Ml Syr) 0.5 mg IV Q15M PRN PRN Reason: Pain Stop: 12/07/23 18:04 Last Admin: 11/23/23 18:25 Dose: 0.5 mg Documented By: OVIDIO Discontinued Medications Divalproex Sodium (Divalproex Extended Release 500 Mg Tab) 500 mg PO NOW ONE Stop: 11/23/23 15:17 Last Admin: 11/23/23 16:10 Dose: 500 mg Documented By: OVIDIO Phytonadione 5 mg/ Dextrose 50.5 mls @ 101 mls/hr IV ONE ONE Stop: 11/23/23 18:38 Last Infusion: 11/23/23 19:15 Dose: Infused Documented By: Admin: 11/23/23 18:40 Dose: 101 mls/hr Documented By: OVIDIO Morphine Sulfate (Morphine Sulfate 2 Mg/Ml Carp) 2 mg IV NOW STA Stop: 11/23/23 15:01 Last Admin: 11/23/23 15:08 Dose: 2 mg Documented By: OVIDIO Morphine Sulfate (Morphine Sulfate 4 Mg/Ml 1 Ml Carp\Vial) 4 mg IV NOW STA Stop: 11/23/23 16:24 Last Admin: 11/23/23 16:37 Dose: 4 mg Documented By: OVIDIO Ondansetron HCl (Ondansetron Inj 2 Mg/Ml 2 Ml Vial) 4 mg IV NOW STA Stop: 11/23/23 16:24 Last Admin: 11/23/23 16:38 Dose: 4 mg Documented By: OVIDIO Imaging Data Radiologist's Impression: Cervical Spine CT 11/23/23 15:00 CT SCAN OF THE CERVICAL SPINE CLINICAL HISTORY: Trauma. Fall. COMPARISON STUDY: CT of the cervical spine dated 03/04/2022 TECHNIQUE: CT scan of the cervical spine is performed from the skull base to the upper thoracic spine. Images are reviewed in the axial, sagittal, and coronal planes. IV contrast was not administered for this examination. A dose lowering technique was utilized adhering to the principles of ALARA. The examination is degraded by suboptimal positioning within the CT gantry. FINDINGS: Skeletal structures: The skeletal structures are heterogeneously osteopenic. There is no evidence of fracture or subluxation involving the cervical spine. Vertebral body height and alignment are maintained. There is straightening of the cervical lordosis with reversal centered at C5. Anterior osteophytes are seen throughout. The odontoid process and lateral masses are intact. The atlantoaxial articulation is preserved noting mild productive degenerative change. The spinous processes appear intact. There is mild multilevel facet arthropathy. Intervertebral discs: There is mild multilevel degenerative disc space narrowing, greatest at C5-C6 and C6-C7. Central canal: Grossly patent. Soft tissues: The prevertebral and paraspinous soft tissues are within normal limits. There is atherosclerotic calcification of the carotid bulbs. Calvarium: The visualized calvarium at the skull base appears intact. Brain parenchyma: Partially visualized brain parenchyma at the skull base is within normal limits. Sinuses and mastoids: The visualized paranasal sinuses are clear. There are left larger than right mastoid effusions. Lung apices: Clear as visualized. IMPRESSION: 1. There is no evidence of fracture or subluxation involving the cervical spine. 2. Osteopenia and spondylotic change as above. ACT 112: Negative or not required by law. Electronically signed by: Alfredo Cade M.D. 11/23/2023 4:[address] 11/23/23 15:00 CT SCAN OF THE FACIAL BONES WITHOUT IV CONTRAST CLINICAL HISTORY: Fall. Facial injury. COMPARISON STUDY: Facial bone CT dated 04/10/2012 TECHNIQUE: High-resolution CT scan of the facial bones is performed. Images are reviewed in the axial, sagittal, and coronal planes. IV contrast was not administered for this examination. A dose lowering technique was utilized adhering to the principles of ALARA. FINDINGS: The skeletal structures are heterogeneously osteopenic. There is chronic deformity of the nasal bones. There is likely acute on chronic fracture of the nasal bones anteriorly. Overlying soft tissue edema is noted. No additional findings are suspicious for acute facial bone bone fracture. There is chronic deformity of the bony nasal septum which is deviated to the right. The bony orbits are intact and the orbital contents are within normal limits. The zygomatic arches and pterygoid plates are preserved. The maxilla and mandible are intact. Arthritic change is seen in the temporomandibular joints. There are no layering blood products within the paranasal sinuses. There is mild mucosal thickening within the maxillary antra. The remaining paranasal sinuses are clear. There are left larger than right mastoid effusions. Cerumen is noted in the external auditory canals. The visualized calvarium and upper cervical spine are maintained. Partially imaged brain parenchyma is within normal limits. There are dental caries of the remaining mandibular teeth. There are calcified sialoliths in the right parotid gland. IMPRESSION: 1. Suspect acute on chronic bilateral nasal bone fractures. Correlate clinically. 2. No additional findings are suspicious for acute facial bone fracture. The orbits are intact. ACT 112: Negative or not required by law. Electronically signed by: Alfredo Caed M.D. 11/23/2023 6:[address] 11/23/23 15:00 CT SCAN OF THE BRAIN WITHOUT IV CONTRAST CLINICAL HISTORY: Dizziness. COMPARISON STUDY: CT of the brain dated 10/04/2023. TECHNIQUE: Unenhanced axial CT scan of the brain is performed from the vertex to the skull base. A dose lowering technique was utilized adhering to the principles of ALARA. The examination is degraded by inability to properly position the patient within the CT gantry. The patient was scanned twice due to motion artifact. CT DOSE: 4927.16 mGy.cm FINDINGS: Brain parenchyma: There is age-related involutional change noting minimal microangiopathic disease. There is no hemorrhage, mass effect, or evidence of acute territorial ischemia by CT criteria. Vázquez-white matter differentiation is preserved. No extra-axial fluid collection is seen. Ventricles, sulci, cisterns: Prominent secondary to involutional change. Intracranial vasculature: There is atherosclerotic calcification of the cavernous carotid arteries. Calvarium: Unremarkable. Sinuses and mastoids: The visualized paranasal sinuses are clear. The mastoid air cells are well pneumatized. Orbits: The bony orbits are grossly intact. IMPRESSION: There is no hemorrhage, mass effect, or evidence of acute territorial ischemia by CT criteria. ACT 112: Negative or not required by law. Electronically signed by: Alfredo Cade M.D. 11/23/2023 4:[address] 11/23/23 15:00 CT SCAN OF THE LUMBAR SPINE WITHOUT IV CONTRAST CLINICAL HISTORY: Fall. Low back pain. COMPARISON STUDY: CT scan of the lumbar spine dated 11/02/2013. Abdominal CT dated 06/28/2021. TECHNIQUE: CT scan of the lumbar spine is performed from the lower thoracic spine to the sacrum. Images are reviewed in the axial, sagittal, and coronal planes. IV contrast was not administered for this examination. A dose lowering technique was utilized adhering to the principles of ALARA. There is streak artifact from the body wall abutting the CT gantry. The examination is also degraded by the degree of osteopenia. FINDINGS: The skeletal structures are heterogeneously osteopenic. There is no evidence of acute fracture or malalignment involving the lumbar spine. There is a minimal chronic superior endplate compression deformity of L3. This is unchanged from 2020. Vertebral body height is otherwise maintained throughout the lumbar spine. Alignment is preserved. Anterior and lateral marginal osteophytes are seen throughout. The transverse and spinous processes appear intact. There is no spondylolysis. No lytic or blastic lesion is seen. Mild facet arthropathy is noted in the lower lumbar region. There is minimal degenerative disc space narrowing seen throughout the lumbar spine. There is no CT evidence of large disc herniation or high-grade central canal stenosis. The visualized sacrum and bony pelvis appear intact. There is mild fatty atrophy of the paraspinous musculature. There is moderate atherosclerotic calcification of the abdominal aorta, which is normal in caliber. There is evidence of previous right nephrectomy. No retroperitoneal lymphadenopathy is seen. IMPRESSION: 1. There is no evidence of fracture or malalignment involving the lumbar spine. 2. Osteopenia and spondylotic change as above. 3. There is postsurgical change from previous right nephrectomy. ACT 112: Negative or not required by law. Dictated: 11/23/2023 4:19 PM Transcribed: 11/23/2023 4:31 PM Diego [id number] PRASANNA_Naravanaswamy Electronically signed by: Alfredo Cade M.D. 11/23/2023 5:[address] 11/23/23 15:00 CT SCAN OF THE THORACIC SPINE WITHOUT IV CONTRAST CLINICAL HISTORY: Fall. Thoracic back pain. COMPARISON STUDY: Chest CT dated 10/15/2020. TECHNIQUE: CT scan of the thoracic spine was performed from the lower cervical spine the upper lumbar spine. Images are reviewed in the axial, sagittal, and coronal planes. IV contrast was not administered for this examination. A dose lowering technique was utilized adhering to the principles of ALARA. FINDINGS: The skeletal structures are heterogeneously osteopenic. There is an acute fracture through the anterior body and inferior endplate of T8. This is best seen on sagittal image #54. This likely extends through the T8-T9 disc space. There is no clear evidence of posterior element involvement. There is no retropulsion of fragments. Paravertebral edema/hemorrhage is seen at this level. No additional acute fracture is seen involving the thoracic spine. Minimal superior endplate compression deformities of T5, T6, T7, T8, T9, and T10 are chronic. Small anterior osteophytes are seen throughout. The transverse and spinous processes appear intact. No lytic or blastic lesion is seen. A bone island in the body of T2 is unchanged. There is mild multilevel degenerative disc space narrowing. There is no CT evidence of large disc herniation or high- grade central canal stenosis throughout the thoracic region. There are numerous chronic/healed right posterior rib fractures. The paraspinous soft tissues are normal as imaged. There is postsurgical change from previous right nephrectomy. There is bibasilar scarring/atelectasis. No airspace consolidation typical for pneumonia is identified. There is no pleural effusion. IMPRESSION: 1. Oblique fracture through the anterior body of T8 which extends through the inferior endplate and likely involves the T8-T9 disc space. This fracture may be unstable. 2. There is no retropulsion of fragments or evidence of posterior element involvement. 3. Mild prevertebral edema/hemorrhage is seen at the T8 level. 4. No additional acute fracture is identified. 5. Additional findings as above. ACT 112: Negative or not required by law. Electronically signed by: Alfredo Cade M.D. 11/23/2023 4:35 PM Chest X-Ray 11/23/23 15:01 SINGLE VIEW CHEST CLINICAL HISTORY: Generalized weakness. FINDINGS: 2 AP, portable, upright chest radiographs are compared to study dated 10/03/2023. Correlation is made with chest CT dated 10/15/2020. The heart is enlarged. The pulmonary vasculature is noncongested. Chronic interstitial thickening is similar to previous. There is bibasilar scarring/atelectasis. No airspace consolidation or large pleural effusion is identified. No pneumothorax is seen. The skeletal structures are osteopenic. The bony thorax is grossly intact. Arthritic change is noted in the shoulders. IMPRESSION: Mild cardiomegaly with no acute cardiopulmonary abnormality identified. ACT 112: Negative or not required by law. Electronically signed by: Alfredo Cade M.D. 11/23/2023 4:04 PM Discharge Plan Visit Data Chief Complaint: Fall ED Provider: Dawit Hager Discharge Problem: Fall, Lymphedema, CHI (closed head injury), Epistaxis due to trauma, Neck pain, Acute thoracic back pain, Generalized weakness Forms Stand Alone [facility]: [facility] Prescriptions Prescriptions: No Action furosemide 20 mg tablet 20 mg PO DAILY warfarin 5 mg Tablet 5 mg PO DAILY@1600 Rx Instructions: as directed by anti-coagulation clinic gabapentin 100 mg Capsule 100 mg PO TID atorvastatin 80 mg tablet 80 mg PO DAILY phenytoin sodium extended [Dilantin Extended] 100 mg capsule 400 mg PO BID divalproex 500 mg tablet,delayed release (DR/EC) 1,000 mg PO [facility] divalproex 500 mg tablet,delayed release (DR/EC) 500 mg PO DAILY@1500 allopurinol 300 mg tablet 450 mg PO DAILY topiramate 200 mg tablet 200 mg PO BID Tradjenta 5 mg tablet 5 mg PO DAILY tamsulosin 0.4 mg capsule 0.4 mg PO HS cholecalciferol (vitamin D3) 25 mcg (1,000 unit) Tablet 1,000 unit PO DAILY potassium chloride 20 mEq tablet,ER particles/crystals 40 meq PO DAILY Qty: 0 0RF calcium carbonate-vitamin D3 [Caltrate with Vitamin D3] 600 mg(1,500mg) -800 unit Tablet 1 tab PO BID multivitamin Tablet 1 tab PO DAILY finasteride 5 mg tablet 5 mg PO DAILY glipizide 10 mg tablet 10 mg PO BIDWMEAL docusate sodium 100 mg Capsule 100 mg PO BID loratadine 10 mg Tablet 10 mg PO DAILY PRN (Reason: .runny nose) lactulose [Constulose] 10 gram/15 mL solution 45 g PO QID Rx Instructions: Once patient has had 3-4 bowel movement per day, further doses can be held for the day Referrals Referrals: Fab Arroyo MD [Primary Care Provider] -
[2023-11-23 15:29] LABS: Basophils # (auto) 0.03 K/uL (0.00-0.20); Basophils % (auto) 0.4 %; Eosinophils # (auto) 0.14 K/uL (0.00-0.50); Hematocrit (blood only) 42.5 % (42.0-52.0); Hemoglobin 14.9 g/dl (14.0-18.0); Immature Granulocytes # (auto) 0.04 K/uL (0.01-0.20); Immature Granulocytes % (auto) 0.6 %; Lymphocytes # (auto) 3.06 K/uL (1.20-3.40); Lymphocytes % (auto) 43.2 %; Mean Corpuscular Hemoglobin 34.3 pg (25.0-34.0); Mean Corpuscular Hgb Conc 35.1 g/dL (32.0-36.0); Mean Corpuscular Volume 97.9 fL (80.0-100.0); Mean Platelet Volume 10.4 fL (9.4-12.4); Monocytes # (auto) 0.63 K/uL (0.11-0.59); Monocytes % (auto) 8.9 %; Neutrophils # (auto) 3.19 K/uL (1.40-6.50); Neutrophils % (auto) 44.9 %; Platelet Count 133 K/uL (130-400); RDW Coefficient of Variation 15.2 % (11.5-14.5); RDW Standard Deviation 55.2 fL (36.4-46.3); Red Blood Count 4.34 M/uL (4.70-6.10); White Blood Count 7.09 K/ul (4.8-10.8)
[2023-11-23 15:30] LABS: Alanine Aminotransferase 24 U/L (7-52); Albumin Globulin Ratio 1.4 (0.9-2); Albumin Level 3.9 gm/dl (3.4-5.0); Alkaline Phosphatase 81 U/L (34-104); BUN Creatinine Ratio 16.5 (10-20); Bilirubin,Total 0.4 mg/dl (0.2-1.0); Blood Urea Nitrogen 15 mg/dl (6-23); Calcium 9.2 mg/dl (8.6-10.3); Carbon Dioxide 25 mmol/L (21-32); Chloride 106 mmol/L (98-107); Creatine Kinase 98 U/L (30-223); Creatinine Clr Calc Pharmacy 106.4 ml/min; Est GFR (African American) 102.1 ml/min; Est GFR (Non-African American) 88.1 ml/min; Globulin 2.7 gm/dl (2.5-4.0); Glucose 170 mg/dl (70-99(Fasting)); Total Protein 6.6 gm/dl (6.0-8.3)
[2023-11-23 15:34] LABS: Troponin I High Sensitivity 4.3 pg/ml (0-20)
[2023-11-23 15:43] LABS: Thyroid Stimulating Hormone 5.109 uIu/ml (0.300-4.500)
[2023-11-23 16:00] LABS: Magnesium 1.6 mg/dl (1.7-2.4); Potassium 4.1 mmol/L (3.5-5.1)
--- NOTE | 2023-11-23 16:06 | XRay Report ---
SINGLE VIEW CHEST CLINICAL HISTORY: Generalized weakness. FINDINGS: 2 AP, portable, upright chest radiographs are compared to study dated 10/03/2023. Correlatio n is made with chest CT dated 10/15/2020. The heart is enlarged. The pulmonary vasculature is nonconge sted. Chronic interstitial thickening is similar to previous. There is bibasilar scarring/atelectasis . No airspace consolidation or large pleural effusion is identified. No pneumothorax is seen. The ske letal structures are osteopenic. The bony thorax is grossly intact. Arthritic change is noted in the shoulders. IMPRESSION: Mild cardiomegaly with no acute cardiopulmonary abnormality identified. ACT 112: Negative or not required by law. Electronically signed by: Alfredo Cade M.D. 11/23/2023 4:04 PM
[2023-11-23] MEDS: DIVALPROEX EXTENDED RELEASE 500 MG TAB PO ONE (16:10)
--- NOTE | 2023-11-23 16:10 | CT Scan Report ---
CT SCAN OF THE BRAIN WITHOUT IV CONTRAST CLINICAL HISTORY: Dizziness. COMPARISON STUDY: CT of the brain dated 10/04/2023. TECHNIQUE: Unenhanced axial CT scan of the brain is performed from the vertex to the skull base. A do se lowering technique was utilized adhering to the principles of ALARA. The examination is degraded b y inability to properly position the patient within the CT gantry. The patient was scanned twice due to motion artifact. CT DOSE: 4927.16 mGy.cm FINDINGS: Brain parenchyma: There is age-related involutional change noting minimal microangiopathic disease. T here is no hemorrhage, mass effect, or evidence of acute territorial ischemia by CT criteria. Vázquez-wh ite matter differentiation is preserved. No extra-axial fluid collection is seen. Ventricles, sulci, cisterns: Prominent secondary to involutional change. Intracranial vasculature: There is atherosclerotic calcification of the cavernous carotid arteries. Calvarium: Unremarkable. Sinuses and mastoids: The visualized paranasal sinuses are clear. The mastoid air cells are well pneu matized. Orbits: The bony orbits are grossly intact. IMPRESSION: There is no hemorrhage, mass effect, or evidence of acute territorial ischemia by CT leatha marlow. ACT 112: Negative or not required by law. Electronically signed by: Alfredo Cade M.D. 11/23/2023 4:07 PM
[2023-11-23 16:20] LABS: T4 Free Thyroxine 0.51 ng/dl (0.61-1.60)
[2023-11-23] MEDS: MoRPHine SULFATE 4 MG/ML 1 ML CARP\\VIAL IV STA (16:37)
--- NOTE | 2023-11-23 16:37 | CT Scan Report ---
CT SCAN OF THE THORACIC SPINE WITHOUT IV CONTRAST CLINICAL HISTORY: Fall. Thoracic back pain. COMPARISON STUDY: Chest CT dated 10/15/2020. TECHNIQUE: CT scan of the thoracic spine was performed from the lower cervical spine the upper lumbar spine. Images are reviewed in the axial, sagittal, and coronal planes. IV contrast was not administe red for this examination. A dose lowering technique was utilized adhering to the principles of ALARA. FINDINGS: The skeletal structures are heterogeneously osteopenic. There is an acute fracture through the anterior body and inferior endplate of T8. This is best seen on sagittal image #54. This likely e xtends through the T8-T9 disc space. There is no clear evidence of posterior element involvement. The re is no retropulsion of fragments. Paravertebral edema/hemorrhage is seen at this level. No addition al acute fracture is seen involving the thoracic spine. Minimal superior endplate compression deformi ties of T5, T6, T7, T8, T9, and T10 are chronic. Small anterior osteophytes are seen throughout. The transverse and spinous processes appear intact. No lytic or blastic lesion is seen. A bone island in the body of T2 is unchanged. There is mild multilevel degenerative disc space narrowing. There is no CT evidence of large disc herniation or high-grade central canal stenosis throughout the thoracic reg ion. There are numerous chronic/healed right posterior rib fractures. The paraspinous soft tissues ar e normal as imaged. There is postsurgical change from previous right nephrectomy. There is bibasilar scarring/atelectasis. No airspace consolidation typical for pneumonia is identified. There is no pleu ral effusion. IMPRESSION: 1. Oblique fracture through the anterior body of T8 which extends through the inferior endplate and l ikely involves the T8-T9 disc space. This fracture may be unstable. 2. There is no retropulsion of fragments or evidence of posterior element involvement. 3. Mild prevertebral edema/hemorrhage is seen at the T8 level. 4. No additional acute fracture is identified. 5. Additional findings as above. ACT 112: Negative or not required by law. Electronically signed by: Alfredo Cade M.D. 11/23/2023 4:35 PM
[2023-11-23] MEDS: ONDANSETRON INJ 2 MG/ML 2 ML VIAL IV STA (16:38)
--- NOTE | 2023-11-23 16:45 | CT Scan Report ---
CT SCAN OF THE CERVICAL SPINE CLINICAL HISTORY: Trauma. Fall. COMPARISON STUDY: CT of the cervical spine dated 03/04/2022 TECHNIQUE: CT scan of the cervical spine is performed from the skull base to the upper thoracic spine . Images are reviewed in the axial, sagittal, and coronal planes. IV contrast was not administered fo r this examination. A dose lowering technique was utilized adhering to the principles of ALARA. The examination is degraded by suboptimal positioning within the CT gantry. FINDINGS: Skeletal structures: The skeletal structures are heterogeneously osteopenic. There is no evidence of fracture or subluxation involving the cervical spine. Vertebral body height and alignment are maintai pa. There is straightening of the cervical lordosis with reversal centered at C5. Anterior osteophyt es are seen throughout. The odontoid process and lateral masses are intact. The atlantoaxial articula tion is preserved noting mild productive degenerative change. The spinous processes appear intact. Th ere is mild multilevel facet arthropathy. Intervertebral discs: There is mild multilevel degenerative disc space narrowing, greatest at C5-C6 a nd C6-C7. Central canal: Grossly patent. Soft tissues: The prevertebral and paraspinous soft tissues are within normal limits. There is athero sclerotic calcification of the carotid bulbs. Calvarium: The visualized calvarium at the skull base appears intact. Brain parenchyma: Partially visualized brain parenchyma at the skull base is within normal limits. Sinuses and mastoids: The visualized paranasal sinuses are clear. There are left larger than right ma stoid effusions. Lung apices: Clear as visualized. IMPRESSION: 1. There is no evidence of fracture or subluxation involving the cervical spine. 2. Osteopenia and spondylotic change as above. ACT 112: Negative or not required by law. Electronically signed by: Alfredo Cade M.D. 11/23/2023 4:42 PM
[2023-11-23 16:50] LABS: INR 4.5 (0.9-1.1); Prothrombin Time 44.8 Seconds (9.0-12.0)
--- NOTE | 2023-11-23 17:28 | CT Scan Report ---
CT SCAN OF THE LUMBAR SPINE WITHOUT IV CONTRAST CLINICAL HISTORY: Fall. Low back pain. COMPARISON STUDY: CT scan of the lumbar spine dated 11/02/2013. Abdominal CT dated 06/28/2021. TECHNIQUE: CT scan of the lumbar spine is performed from the lower thoracic spine to the sacrum. Imag es are reviewed in the axial, sagittal, and coronal planes. IV contrast was not administered for this examination. A dose lowering technique was utilized adhering to the principles of ALARA. There is st reak artifact from the body wall abutting the CT gantry. The examination is also degraded by the degr ee of osteopenia. FINDINGS: The skeletal structures are heterogeneously osteopenic. There is no evidence of acute fract ure or malalignment involving the lumbar spine. There is a minimal chronic superior endplate compress ion deformity of L3. This is unchanged from 2020. Vertebral body height is otherwise maintained throu ghout the lumbar spine. Alignment is preserved. Anterior and lateral marginal osteophytes are seen th roughout. The transverse and spinous processes appear intact. There is no spondylolysis. No lytic or blastic lesion is seen. Mild facet arthropathy is noted in the lower lumbar region. There is minimal degenerative disc space narrowing seen throughout the lumbar spine. There is no CT evidence of large disc herniation or high-grade central canal stenosis. The visualized sacrum and bony pelvis appear in tact. There is mild fatty atrophy of the paraspinous musculature. There is moderate atherosclerotic c alcification of the abdominal aorta, which is normal in caliber. There is evidence of previous right nephrectomy. No retroperitoneal lymphadenopathy is seen. IMPRESSION: 1. There is no evidence of fracture or malalignment involving the lumbar spine. 2. Osteopenia and spondylotic change as above. 3. There is postsurgical change from previous right nephrectomy. ACT 112: Negative or not required by law. Dictated: 11/23/2023 4:19 PM Transcribed: 11/23/2023 4:31 PM Diego [id number] PRASANNA_Robert Electronically signed by: Alfredo Cade M.D. 11/23/2023 5:26 PM
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
[2023-11-23] MEDS: HYDROmorphone INJ 0.5 MG/0.5 ML SYR IV PRN (18:25)
--- NOTE | 2023-11-23 18:29 | CT Scan Report ---
CT SCAN OF THE FACIAL BONES WITHOUT IV CONTRAST CLINICAL HISTORY: Fall. Facial injury. COMPARISON STUDY: Facial bone CT dated 04/10/2012 TECHNIQUE: High-resolution CT scan of the facial bones is performed. Images are reviewed in the axia l, sagittal, and coronal planes. IV contrast was not administered for this examination. A dose lower ing technique was utilized adhering to the principles of ALARA. FINDINGS: The skeletal structures are heterogeneously osteopenic. There is chronic deformity of the n giacomo bones. There is likely acute on chronic fracture of the nasal bones anteriorly. Overlying soft t issue edema is noted. No additional findings are suspicious for acute facial bone bone fracture. Ther e is chronic deformity of the bony nasal septum which is deviated to the right. The bony orbits are i ntact and the orbital contents are within normal limits. The zygomatic arches and pterygoid plates ar e preserved. The maxilla and mandible are intact. Arthritic change is seen in the temporomandibular j oints. There are no layering blood products within the paranasal sinuses. There is mild mucosal thick ening within the maxillary antra. The remaining paranasal sinuses are clear. There are left larger th an right mastoid effusions. Cerumen is noted in the external auditory canals. The visualized calvariu m and upper cervical spine are maintained. Partially imaged brain parenchyma is within normal limits. There are dental caries of the remaining mandibular teeth. There are calcified sialoliths in the rig ht parotid gland. IMPRESSION: 1. Suspect acute on chronic bilateral nasal bone fractures. Correlate clinically. 2. No additional findings are suspicious for acute facial bone fracture. The orbits are intact. ACT 112: Negative or not required by law. Electronically signed by: Alfredo Cade M.D. 11/23/2023 6:27 PM
[2023-11-23] MEDS: PHYTONADIONE 5 MG in DEXTROSE 5% 50 ML IV ONE (18:40)
--- OUTSIDE RECORDS SUMMARY | 2023-11-23 19:37 | External Medical Summary | Summary of Care ---
Author Name Unknown Organization [facility] Address [address] [place] [address] Phone [phone] Care Team Providers Care Acid Bath Mixer Name Role Phone Fab Arroyo MD Primary Care Provider +1- [phone] Reason for Visit * Reason Comments Outpatient Testing Encounter Details Date Type Department Care Team (Late st Contact Info) Description 11/20/2023 1:20 PM EDT Laboratory Laboratory, [place] [address] [place] [address] [place], [facility] [address] [place] [address] 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 (deep vein thrombosis); Anticoagulation management encounter; intermediate current use of 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 therapy; Swelling of lower extremity Allergies Active Allergy Reactions Criticality Noted Date Comments Indomethacin 10/31/2000 resulted in seizures twice documented as of this encounter (statuses as of 11/20/2023) Medications Medication Sig Dispensed Refills Start Date End Date Status CALTRATE 600 + D 600-125 MG-IU PO TABS One tablet bid 60 0 04/11/2006 Active VITAMIN D 1000 UNIT PO TABS one tab by mouth daily 0 Active docusate sodium (COLACE) 100 MG CapsuleIndications: Constipation Take 1 Cap by mouth 2 times a day. 60 Cap 5 06/08/2019 Active Tab-A-Rory Oral Tablet Take 1 tablet by mouth once daily 90 Tab 5 06/28/2020 Active Lidocaine 5 % External Ointment Apply 1 Film topically to affected area in the morning. Apply to legs as needed. 0 Active Loratadine 10 MG Oral Tablet (Claritin)Indicatio ns:Suspected COVID-19 virus infection,Stuffy and runny nose,Post-nasal drip Take by mouth 1 Tablet in the morning. x1-2 wks then as needed-otc. 30 Tablet 0 11/22/2021 Active Gabapentin 400 MG Oral Capsule (Neurontin) Take 1 capsule by mouth at bedtime 90 Capsule 3 01/02/2023 Active Allopurinol 300 MG Oral Tablet (Zyloprim) TAKE 1 & 1/2 (ONE & ONE-HALF) TABLETS BY MOUTH ONCE DAILY 135 Tablet 2 04/04/2023 Active Topiramate 200 MG Oral Tablet (topAMAX)Indication s:Generalized convulsive epilepsy without intractable epilepsy (HCC) Take 1 tablet by mouth twice daily 180 Tablet 1 05/09/2023 Active Tamsulosin HCl 0.4 MG Oral Capsule (Flomax)Indications :Nephrolithiasis Take 1 capsule by mouth once daily [...] 08/15/2023 Active Tradjenta 5 MG Oral Tablet (linaGLIPtin)Indica tions:Type 2 diabetes mellitus with hemoglobin A1c goal of less than 8.0% ([facility]) Take 1 tablet by mouth once daily [...] THE EVENING. 150 Tablet 5 09/03/2023 Active ReliOn Pen [place] 32G X 4 MM 0 10/16/2023 Active Lantus SoloStar 100 UNIT/ML Subcutaneous Solution Pen-injector 0 10/16/2023 Active Gabapentin 100 MG Oral Capsule (Neurontin) Take 1 Capsule by mouth in the morning and 1 Capsule before bedtime. 180 Capsule 3 10/22/2023 Active Furosemide 20 MG Oral Tablet (Lasix) TAKE 1 TABLET BY MOUTH ONCE DAILY FOR FLUID 90 Tablet 1 10/24/2023 Active Warfarin Sodium 5 MG Oral Tablet (Coumadin)Indicatio ns:Anticoagulation management encounter,Deep vein thrombosis (DVT) of proximal lower extremity, unspecified chronicity, unspecified laterality (HCC) TAKE 1 TO 1 & 1/2 TABLETS BY MOUTH ONCE DAILY DIRECTED BY COUMADIN CLINIC 135 Tablet 3 10/24/2023 Active Finasteride 5 MG Oral Tablet (Proscar) TAKE 1 TABLET BY MOUTH IN THE MORNING 90 Tablet 0 10/30/2023 Active documented as of this encounter (statuses as of 11/20/2023) Active Problems Problem Noted Date Diagnosed Date [...] 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 Overview: ICD-9 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 Never true 10/24/19 24 Within the past 12 months, t he food you bought just didn't last and you didn't have money to get more. Never true 10/24/2023 Sex and Gender Information Value Date Recorded [...] Care Team (Late st Contact Info) Description 11/29/2023 3:20 PM EDT Office Visit Neurology [facility] [place] [address] [place] [address] Leona Richardson PA-C [address] [place] [address] 12/11/2023 11:50 AM EDT [facility], [place] [address] [address] [facility] [place] [address] [facility] [place] [address] 12/11/2023 12:20 PM EDT Office Visit Family Practice, [place] [address] [place] [facility] [place] [phone] Fab Arroyo MD [address] [place] [facility] [place] [address] 12/25/2023 4:00 PM EDT Office Visit Urology, [facility] [address] [facility] [place] [address] John Owen MD 27 [facility] [place] [address] [place] [address] 01/09/2024 2:20 PM EDT Office Visit Family [facility], [place] [address] [place] [facility] [place] [phone] Fab Arroyo MD [address] [place] [address] 02/13/2024 1:20 PM EDT Office Visit Podiatry [facility] [address] [facility] [place] [address] Sandee Smith, ANDREW 132 [place] [address] Pending Results Name Type Priority Associated Diagnoses Date /Time PT INR Lab Routine 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 (deep vein thrombosis) Anticoagulation management encounter intermediate current use of 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 therapy 11/20/2023 1:33 PM EDT BNP, NT-PRO Lab Routine Swelling of lower extremity 11/20/2023 1:33 PM EDT D-DIMER Lab Routine Swelling of lower extremity 11/20/2023 1:33 PM EDT Health Maintenance Due Date Last Done Comments HIV Screening 1975 Zoster Vaccines (1 of 2) 2008 COLONOSCOPY-EVERY 2 YRS AGES 18-100 03/01/2013 03/01/2011, 08/30/2009, 02/22/2009 Pneumococcal Vaccine: 65+ Years (2 of 2 - PCV) 03/24/2014 03/24/2013 Hepatitis B (1 of 3 - Risk 3-dose series) 2018 Diabetic Eye Exam 03/14/2021 03/14/2020 COVID-19 Vaccine (3 - season) 2023 04/04/2021, 03/11/2021 Albumin/Creatinine Ratio 07/18/2023 07/18/2022, 050 11/2019 HbA1c 02/28/2024 08/30/2023, 04/05, 12/06/2022, Additional history exists Influenza Vaccine (FLU shot) (Season Ended) 2024 05/23/2010, 05/12/2009, 07/16/2008, Additional history exists GFR 10/16/2024 10/17/2023, 02/2024, 08/30/2023, Additional history exists Depression Screening 10/23/2024 10/24/2023 Diabetic Foot Exam 11/19/2024 11/20/2023, 03/03/2020 Lipid Panel 04/22/2028 04/22/2023, 07/05, 01/31/2021, Additional [...] Diagnoses Diagnosis 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 (deep vein thrombosis) Personal history of venous thrombosis and embolism Anticoagulation management encounter 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
--- OUTSIDE RECORDS SUMMARY | 2023-11-23 19:37 | External Medical Summary ---
Author Name Unknown Address Unknown Organization [id number]:[facility] [place] [address] [place] [address] Laboratory Report Ordering Provider Test Date Status STEVERAYARome 11/20/2023 13:33:00 Final Warfarin Therapy
INR: 2 .0-3.0 conventional anticoagulation
INR: 2.5- 3.5 high intensity anticoagulation Observation Date Value Abnormality Reference (Units ) Status PT 11/20/2023 13:33:00 25.5 Above high normal 11 .6-15.2 (seconds) Final INR 11/20/2023 13:33:00 2.3 Above high normal 0. 8-1.2 Final Performing Location [facility] [place] [address] [place] [address]
--- OUTSIDE RECORDS SUMMARY | 2023-11-23 19:37 | External Medical Summary | Summary of Care ---
Author Name Unknown Organization [facility] Address [address] [place] [address] Phone [phone] Care Team Providers Care Senior Software Systems Engineer Name Role Phone Fab Arroyo MD Primary Care Provider +1- [phone] Reason for Visit * Reason Comments Outpatient Testing Encounter Details Date Type Department Care Team (Late st Contact Info) Description 11/20/2023 1:20 PM EDT Laboratory Laboratory, [place] [address] [place] [address] [place], [facility] [address] [place] [address] 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 (deep vein thrombosis); Anticoagulation management encounter; [facility] current use of 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 therapy; Swelling of [...] hemoglobin A1c goal of less than 8.0% ([facility]) Take 1 tablet by mouth once daily [...] 150 Tablet 5 09/03/2023 Active ReliOn Pen [place] 32G X 4 MM 0 10/16/2023 Active [...] 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 Overview: ICD-9 Code 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 0 08/30/2004 [...] Care Team (Late st Contact Info) Description 11/26/2023 1:20 PM EDT Office Visit Podiatry [facility] [address] [place] [address] Sandee Smith DPM [address] [place] [address] 11/29/2023 3:20 PM EDT Office Visit Neurology [place] [facility] [place] [address] [place] [address] Leona Richardson PA-C [address] [place] [address] 12/11/2023 11:50 AM EDT Anticoagulation Pharmacy, [place] [address] [facility] [address] [facility] [address] [facility] [address] 12/11/2023 12:20 PM EDT Office Visit [place] [address] [facility] [place] [phone] Fab Arroyo MD [address] [place] [address] 12/25/2023 4:00 PM EDT Office Visit Urology, [facility] 132 [facility] [place] [address] John Owen MD [address] [place] [address] [place] [address] 01/09/2024 2:20 PM EDT Office Visit [facility] [address] [facility] [phone] Fab Arroyo MD [address] [place] [address] 02/13/2024 1:20 PM EDT Office Visit Podiatry [facility] 132 [facility] [place] [address] Sandee Smith DPM 132 [facility] [place] [address] Pending Results Name Type Priority Associated Diagnoses Date /Time PT INR Lab Routine 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 (deep vein thrombosis) Anticoagulation management encounter 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 11/20/2023 1:33 [...] 07/16/2008, Additional history exists GFR 10/16/2024 10/17/2023, 03/0 02/2024, 08/30/2023, Additional history exists Depression Screening [...] Procedure Name Priority Date/Time Associated Diagnosis Comments D-DIMER Routine 11/20/2023 1:33 PM EDT Swelling of lower extremity documented in this encounter Results * D-DIMER (11/20/2023 1:33 PM EDT) D-Dimer <0.27 <0.50 ug/mL FEU 11/20/2023 11:09 PM EDT [facility] [place] Venous blood specimen / Unknown Venipuncture / Unknown 11/20/2023 1:33 PM EDT 11/20/2023 1:33 PM EDT Narrative [facility] [place] 11/20/2023 11:09 PM EDT Rheumatoid factor at a level above 50 IU/mL may lead to an overestimation of the D-dimer level. A normal D-dimer result (<0.50 ug/mL FEU) has a negative predictive value of approximately 95% for the exclusion of acute pulmonary embolism (PE) or deep vein thrombosis when there is low or moderate pretest PE probability. Increased D-dimer values are abnormal but do not indicate a specific disease state and the D-dimer increase does not definitively correlate with clinical severity of disease. 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
--- OUTSIDE RECORDS SUMMARY | 2023-11-23 19:37 | External Medical Summary | Summary of Care ---
Author Name Unknown Organization [facility] Address [address] [place] [address] Phone [phone] Care Team Providers Care Clinical Outcomes Manager Name Role Phone Fab Arroyo MD Primary Care Provider +1- [phone] Reason for Visit * Reason Comments eRx-Medication Refill Encounter Details Date Type Department Care Team (Late st Contact Info) Description 10/30/2023 Refill Urology, [facility] [address] [facility] [place] [address] Saray Dos Santos MD 27 [facility] [address] [place] [address] Allergies Active Allergy Reactions Criticality Noted Date Comments Indomethacin 10/31/2000 resulted in seizures twice documented as of this encounter (statuses as of 10/30/2023) Medications Medication Sig Dispensed Refills Start Date End Date Status CALTRATE 600 + D 600-125 MG-IU PO TABS One tablet bid 60 0 6 Active VITAMIN D 1000 UNIT PO TABS one tab by mouth daily 0 Active docusate sodium (COLACE) 100 MG CapsuleIndication s:Constipation Take 1 Cap by mouth 2 times a day. 60 Cap 5 9 Active Tab-A-Rory Oral Tablet Take 1 tablet by mouth once daily 90 Tab 5 0 Active Lidocaine 5 % External Ointment Apply 1 Film topically to affected area daily. Apply to legs as needed 0 Active Loratadine 10 MG Oral Tablet (Claritin)Indicat ions:Suspected COVID-19 virus infection,Stuffy and runny nose,Post-nasal drip Take by mouth 1 Tablet in the morning. x1-2 wks then as needed-otc. 30 Tablet 0 2 Active Additional Information Patient not taking.Reported on 08/29/2023 Gabapentin 400 MG Oral Capsule (Neurontin) Take 1 capsule by mouth at bedtime 90 Capsule 3 3 Active Allopurinol 300 MG Oral Tablet (Zyloprim) TAKE 1 & 1/2 (ONE & ONE-HALF) TABLETS BY MOUTH ONCE DAILY 135 Tablet 2 3 Active Topiramate 200 MG Oral Tablet (topAMAX)Indicati ons:Generalized convulsive epilepsy without intractable epilepsy (HCC) Take 1 tablet by mouth twice daily 180 Tablet 1 3 Active Tamsulosin HCl 0.4 MG Oral Capsule (Flomax)Indicatio ns:Nephrolithiasi s Take 1 capsule by mouth once daily 90 Capsule 3 3 Active Dilantin 100 MG Oral Capsule TAKE 4 CAPSULES BY MOUTH TWICE DAILY 240 Capsule 5 3 Active Lactulose 10 GM/15ML Oral Solution (Constulose) TAKE 45 ML BY MOUTH 4 TIMES DAILY 5400 mL 5 3 Active glipiZIDE 10 MG Oral Tablet (Glucotrol) TAKE 1 TABLET BY MOUTH TWICE DAILY 30 MIN BEFORE A MEAL 180 Tablet 1 4 Active Tradjenta 5 MG Oral Tablet (linaGLIPtin)Gloria cations:Type 2 diabetes mellitus with hemoglobin A1c goal of less than 8.0% ([facility]) Take 1 tablet by mouth once daily 90 Tablet 1 4 Active Potassium Chloride ER 20 MEQ Oral Tablet Extended Release Take 2 tablets by mouth once daily 180 Tablet 1 4 Active Atorvastatin Calcium 80 MG Oral Tablet (Lipitor) TAKE 1 TABLET BY MOUTH ONCE DAILY FOR CHOLESTEROL 90 Tablet 1 4 Active Divalproex Sodium 500 MG Oral Tablet Delayed Release (Depakote DR) TAKE 2 TABLETS BY MOUTH IN THE MORNING, 1 TABLET AT 3PM, AND 2 TABLETS IN THE EVENING. 150 Tablet 5 4 Active ReliOn Pen [place] 32G X 4 MM 0 4 Active Lantus SoloStar 100 UNIT/ML Subcutaneous Solution Pen-injector 0 4 Active Gabapentin 100 MG Oral Capsule (Neurontin) Take 1 Capsule by mouth in the morning and 1 Capsule before bedtime. 180 Capsule 3 4 Active Furosemide 20 MG Oral Tablet (Lasix) TAKE 1 TABLET BY MOUTH ONCE DAILY FOR FLUID 90 Tablet 1 4 Active Warfarin Sodium 5 MG Oral Tablet (Coumadin)Indicat ions:Anticoagulat ion management encounter,Deep vein thrombosis (DVT) of proximal lower extremity, unspecified chronicity, unspecified laterality (HCC) TAKE 1 TO 1 & 1/2 TABLETS BY MOUTH ONCE DAILY DIRECTED BY COUMADIN CLINIC 135 Tablet 3 4 Active Finasteride 5 MG Oral Tablet (Proscar) TAKE 1 TABLET BY MOUTH IN THE MORNING 90 Tablet 0 4 Active Finasteride 5 MG Oral Tablet (Proscar) TAKE 1 TABLET BY MOUTH IN THE MORNING 90 Tablet 0 4 10/30/19 24 Discontinued documented as of this encounter (statuses as of 10/30/2023) Active Problems Problem Noted Date Diagnosed Date [...] 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 Overview: ICD-9 Code Update [facility] current use of 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 therapy 0 08/30/2004 Overview: ICD-10 update of inactive term GENERALIZED CONVULSIVE EPILE PSY; WITHOUT MENTION OF INTRACTABLE EPILEPSY documented as of this encounter (statuses as of 10/30/2023) Resolved Problems Problem Noted Date Diagnosed Date Resolved Date Acute embolism and thrombosi s of deep vein of proximal lower extremity 08/09/2022 09/16/2023 Metabolic acidosis with respiratory alkalosis 04/04/20 16 07/25/2017 DVT (deep venous thrombosis) ([facility]) (aka DVT (DEEP VENOUS THROMBOSIS) (HCC)) 03/16/2015 [...] as of this encounter (statuses as of 10/30/2023) Immunizations Name Administration Dates Next Due COVID-19 [...] Encounter - Saray Dos Santos MD - 10/30/2023 12:03 PM EDT Signed Prescriptions: Disp Refills Finasteride 5 MG Oral Tablet (Proscar) 90 Tab*0 Sig: TAKE 1 TABLET BY MOUTH IN THE MORNING Authorizing Provider: SARAY DOS SANTOS * Telephone Encounter - Estela Fernandez LPN - 10/30/2023 9:52 AM EDTPending Prescriptions: Disp Refills Finasteride 5 MG Oral Tablet 90 Tab*0 Sig: TAKE 1 TABLET BY MOUTH IN THE MORNING * Telephone Encounter - Estela Fernandez LPN - 10/30/2023 9:51 AM EDT Please refill the requested medication(s). Finasteride 07/10/2022 (in office), Visit date not found (telemedicine) 12/25/2023 Review of patient's allergies indicates: Allergen Reactions Indomethacin resulted in seizures twice documented in this encounter Plan of Treatment Upcoming Encounters Date Type Department Care Team (Late st Contact Info) Description 11/07/2023 1:40 PM EDT Office Visit Podiatry [facility] [address] [place] [address] Sandee Smith DPM [address] [place] [address] 11/12/2023 3:30 PM EDT Anticoagulation Pharmacy, [place] [address] [facility] [place] [address] [place] [facility] [address] [place] [address] 11/29/2023 3:20 PM EDT Office Visit Neurology [facility] Town[facility] [place] [address] [place] [address] Leona Richardson PA-C [address] [place] [address] 12/11/2023 12:20 PM EDT Office Visit [facility] [address] [place] [address] Fab Arroyo MD [address] [place] [address] 12/25/2023 4:00 PM EDT Office Visit Urology, [facility] [address] [facility] [place] [address] Saray Dos Santos MD 27 [facility] [address] [place] [address] 01/09/2024 2:20 PM EDT Office Visit [facility] [address] [place] [address] Fab Arroyo MD [address] [place], [place] [address] Health Maintenance Due Date Last Done Comments HIV Screening 1975 Zoster Vaccines (1 of 2) 2008 COLONOSCOPY-EVERY 2 YRS AGES 18-100 03/01/2013 03/01/2011, 08/30/2009, 02/22/2009 Pneumococcal Vaccine: Pediatrics (0 to 5 Years) and At-Risk Patients (6 to 64 Years) (2 of 2 - PCV) 03/24/2014 03/24/2013 Hepatitis B (1 of 3 - Risk 3-dose series) 2018 Diabetic Foot Exam 03/03/2021 03/03/2020 Diabetic Eye Exam 03/14/2021 03/14/2020 COVID-19 Vaccine (3 - 2022- season) 2023 04/04/2021, 03/11/2021 Influenza Vaccine (FLU shot) (#1) 2023 05/23/2010, 05/12/2009, 07/16/2008, Additional history exists Albumin/Creatinine Ratio 07/18/2023 07/18/2022, 11/2019 HbA1c 02/28/2024 08/30/2023, 04/05, 12/06/2022, Additional history exists GFR 10/16/2024 10/17/2023, 02/2024, 08/30/2023, Additional history exists Depression Screening 10/23/2024 10/24/2023 Lipid Panel 04/22/2028 04/22/2023, 07/05, 01/31/2021, Additional [...] filedocumented as of this encounter Care Teams Clinical Outcomes Manager Relationship Specialty Start Date End Date Fab Arroyo MD [address] [place] [address] PCP - General 05/05/00 documented as of this encounter
--- OUTSIDE RECORDS SUMMARY | 2023-11-23 19:37 | External Medical Summary | Summary of Care ---
Author Name Unknown Organization [facility] Address [address] [place] [address] Phone [phone] Care Team Providers Care Marine Welder Name Role Phone Fab Arroyo MD Primary Care Provider +1- [phone] Reason for Visit * Reason Comments Outpatient Testing Encounter Details Date Type Department Care Team (Late st Contact Info) Description 11/20/2023 1:20 PM EDT Laboratory Laboratory, [place] [address] [place] [address] [place], [facility] [address] [place] [address] 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 (deep vein thrombosis); Anticoagulation management encounter; detention current use of 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 therapy; Swelling of [...] hemoglobin A1c goal of less than 8.0% ([facility]) Take 1 tablet by mouth once daily [...] 150 Tablet 5 09/03/2023 Active ReliOn Pen [place] 32G X 4 MM 0 10/16/2023 Active [...] 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 Overview: ICD-9 Code 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 0 08/30/2004 [...] PM EDT Office Visit Neurology Christy Townsend [place] [address] [place] [address] Leona Richardson PA-C [address] [place] [address] 12/11/2023 11:50 AM EDT Anticoagulation Pharmacy, [place] [address] [address] [facility] [place] [address] [facility] [place] [address] 12/11/2023 12:20 PM EDT Office Visit Family Practice, [place] [address] [place] [phone] Fab Arroyo MD [address] [place] [address] 12/25/2023 4:00 PM EDT Office Visit Urology, [facility] [address] [place] [address] John Owen MD 27 [facility] [address] [place] [address] 01/09/2024 2:20 PM EDT Office Visit Family [facility], [place] [address] [place] [phone] Fab Arroyo MD [address] [place] [address] 02/13/2024 1:20 PM EDT Office Visit Podiatry [facility] [address] [place] [address] Sandee Smith, ANDREW 132 [place] [address] Pending Results Name Type Priority Associated Diagnoses Date /Time BNP, NT-PRO Lab Routine Swelling of lower [...] 2023 04/04/2021, 03/11/2021 Albumin/Creatinine Ratio 07/18/2023 07/18/2022, 11/2019 HbA1c 02/28/2024 [...] management encounter 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
--- OUTSIDE RECORDS SUMMARY | 2023-11-23 19:37 | External Medical Summary | Summary of Care ---
Author Name Unknown Organization [facility] Address [address] [place] [address] Phone [phone] Care Team Providers Care Hood Fitter Name Role Phone Fab Arroyo MD Primary Care Provider +1- [phone] Reason for Visit * Reason Comments Diabetic Foot Care Encounter Details Date Type Department Care Team (Latest Contact Info) Description 11/07/2023 1:40 PM EDT Office Visit Podiatry [facility] [address] [place] [address] Sandee Smith DPM [address] [place] [address] Onychomycosis*; Type 2 diabetes mellitus with hemoglobin A1c goal of less than 8.0% ([facility]); long term current use of 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 therapy; Lymphedema Allergies Active Allergy Reactions Criticality Noted Date Comments Indomethacin 10/31/2000 resulted in seizures twice documented as of this encounter (statuses as of 11/07/2023) Medications Medication Sig Dispensed Refills Start Date [...] 150 Tablet 5 09/03/2023 Active ReliOn Pen [place] 32G X 4 MM 0 10/16/2023 Active [...] as of this encounter (statuses as of 11/07/2023) Active Problems Problem Noted Date Diagnosed Date [...] as of this encounter (statuses as of 11/07/2023) Resolved Problems Problem Noted Date Diagnosed Date [...] as of this encounter (statuses as of 11/07/2023) Immunizations Name Administration Dates Next Due COVID-19 mRNA, LNP-s, No Pre serve, 2-Dose Series ([employer]) 04/04/2021,03/11/2021 Pneumococcal Polysaccharide PPV23 (Pneumovax) 03/24/2013 Seasonal [...] Progress Notes * Sandee Smith DPM - 11/07/2023 3:06 PM EDT Podiatry Established Patient Note [facility] Name: Eliseo Smith : 1960 Date: 11/07/2023 CHIEF COMPLAINT: Diabetic Nail Care HISTORY OF PRESENT ILLNESS: This patient is a 63 year old male who presents today for Diabetic NailCare. He has a history of lymphedema and blood clots. He is on a blood thinner and unable to trim his nails. He denies any pain. Denies any other complaints. Date of last PCP visit: 10/18/2023 Past Medical History: Diagnosis Date Benign neoplasm [...] Age of Onset Heart Disorder Mother massive AR age 54, had breast Ca Cancer Mother [...] file Gets together: Not on file Attends zoroastrianism service: Not on file Active member of [...] taking: Reported on 08/29/2023) 30 Tablet 0 Gabapentin 400 MG Oral Capsule (Neurontin) Take [...] BY MOUTH TWICE DAILY 240 Capsule 5 Lactulose 10 GM/15ML Oral Solution (Constulose) TAKE [...] ONCE DAILY FOR CHOLESTEROL 90 Tablet 1 Divalproex Sodium 500 MG Oral Tablet Delayed Release (Depakote DR) TAKE 2 TABLETS BY MOUTH IN THE MORNING, 1 TABLET AT 3PM, AND 2 TABLETS IN THE EVENING. 150 Tablet 5 ReliOn Pen [place] 32G X 4 MM Lantus SoloStar 100 UNIT/ML Subcutaneous Solution Pen-injector Gabapentin 100 MG Oral Capsule (Neurontin) Take 1 Capsule by mouth in the morning and 1 Capsule before bedtime. 180 Capsule 3 Furosemide 20 MG Oral Tablet (Lasix) TAKE 1 TABLET BY MOUTH ONCE DAILY FOR FLUID 90 Tablet 1 Warfarin Sodium 5 MG Oral Tablet (Coumadin) TAKE 1 TO 1 & 1/2 TABLETS BY MOUTH ONCE DAILY DIRECTED BY COUMADIN CLINIC 135 Tablet 3 Finasteride 5 MG Oral Tablet (Proscar) TAKE [...] Findings ASSESSMENT: 1. DM2 2. Lymphedema 3. long term use of anticoagulation 4. Elongated nails PLAN: [...] documented in this encounter Nursing Notes * Cass Yeboah LPN - 11/07/2023 1:41 PM EDT Pt presents with his sister for routine diabetic nail care, has some leg pain, is under care for it. (Recent hospitalization, now receiving PT and OT at home) documented in this encounter Plan of Treatment Upcoming Encounters Date Type Department Care Team (Late st Contact Info) Description 11/12/2023 3:30 PM EDT Anticoagulation Pharmacy, [address] [place] [address] [place], [facility] [place] [address] 11/29/2023 3:20 PM EDT Office Visit Neurology [facility] Asencio [address] [place] [address] Leona Richardson PA-C [address] [place] [address] 12/11/2023 12:20 PM EDT Office Visit [facility] [place] [address] [address] [facility] [place] [phone] Fab Arroyo MD [address] [place] [address] 12/25/2023 4:00 PM EDT Office Visit Urology, [facility] [address] [place] [address] John Owen MD 27 [facility] [address] [place] [address] 01/09/2024 2:20 PM EDT Office Visit Family [facility] [place] [address] [place] [phone] Fab Arroyo MD [address] [place] [address] 02/13/2024 1:20 PM EDT Office Visit Podiatry [facility] 132 [place] [address] Sandee Smith, TEDDY 132 [place] [address] Health Maintenance Due Date Last Done Comments [...] 2023 04/04/2021, 03/11/2021 Albumin/Creatinine Ratio 07/18/2023 07/18/2022, 05/0 11/2019 HbA1c 02/28/2024 08/30/2023, 04/05, 12/06/2022, Additional [...] A1c goal of less than 8.0% (HCC) half-way current use of 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 therapy Lymphedema Other lymphedema documented in this encounter Care Teams Hood Fitter Relationship Specialty Start Date End Date Fab Arroyo MD [address] [place] [address] PCP - General 05/05/00 documented as of this encounter
--- OUTSIDE RECORDS SUMMARY | 2023-11-23 19:37 | External Medical Summary | Summary of Care ---
Author Name Unknown Organization [facility] Address [address] [place] [address] Phone [phone] Care Team Providers Care Hospice Social Worker Name Role Phone Fab Arroyo MD Primary Care Provider +1- [phone] Reason for Visit * Reason Onset Date Comments Advice 11/12/2023 Encounter Details Date Type Department Care Team (Late st Contact Info) Description 11/12/2023 Telephone Located Within [facility] [address] [place] [address] Fab Arroyo MD [address] [place] [address] Advice Allergies Active Allergy Reactions Criticality Noted Date Comments Indomethacin 10/31/2000 resulted in seizures twice documented as of this encounter (statuses as of 11/15/2023) Medications Medication Sig Dispensed Refills Start Date [...] 150 Tablet 5 09/03/2023 Active ReliOn Pen [place] 32G X 4 MM 0 10/16/2023 Active [...] as of this encounter (statuses as of 11/15/2023) Active Problems Problem Noted Date Diagnosed Date [...] 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 Overview: ICD-9 Code 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 0 08/30/2004 Overview: ICD-10 update of inactive term GENERALIZED CONVULSIVE EPILE PSY; WITHOUT MENTION OF INTRACTABLE EPILEPSY documented as of this encounter (statuses as of 11/15/2023) Resolved Problems Problem Noted Date Diagnosed Date [...] as of this encounter (statuses as of 11/15/2023) Immunizations Name Administration Dates Next Due COVID-19 [...] encounter Miscellaneous Notes * Telephone Encounter - Elizabeth Perez LPN - 11/12/2023 12:22 PM EDT Patients sister Karen states that patients left foot is always swollen because of Lymphedema Patient is now having swelling in his right foot, started on Saturday Swelling is soft in his toes but starts pitting back towards the ankle No increased warmth, redness Patient states that it is a little bit painful Advised an appt No appts available at [facility] today Offered GW but declined Patient has appt with [facility] today at 3:30 pm Sister is asking if any provider could take a look at patients foot today around his [facility] appt Called office, spoke to Cori - Per Dr. Arroyo - when patient comes in he will take a look athis foot, then if patient needs anything he will have to be put on schedule Patient sister is aware and very thankful documented in this encounter Plan of Treatment Upcoming Encounters Date Type Department Care Team (Late st Contact Info) Description 11/29/2023 3:20 PM EDT Office Visit Neurology [facility] [place] 200 [facility] [place] [address] Leona Richardson PA-C 200 [facility] [place] [address] 12/11/2023 11:50 AM EDT [facility] [place] [address] [facility] [address] [facility] [address] [facility] [place] [address] 12/11/2023 12:20 PM EDT Office Visit Family [facility] [place] [address] [address] [facility] [place] [phone] Fab Arroyo MD [address] [facility] [place] [address] 12/25/2023 4:00 PM EDT Office Visit Urology, [facility] 132 [facility] [place] [address] John Owen MD [address] [place] [address] [place] [address] 01/09/2024 2:20 PM EDT Office Visit [facility] [place] [address] [place], [place] [address] [phone] Fab Arroyo MD [address] [place] [address] 02/13/2024 1:20 PM EDT Office Visit Podiatry [facility] 132 [facility] [place] [address] Sandee Smith, DPM [address] [place] [address] Health Maintenance Due Date Last Done Comments [...] (3 - 2022- season) 2023 04/04/2021, 03/11/2021 Albumin/Creatinine Ratio 07/18/2023 [...] filedocumented as of this encounter Care Teams Hospice Social Worker Relationship Specialty Start Date End Date Fab Arroyo MD [address] [facility] [place] [address] PCP - General 05/05/00 documented as of this encounter
--- OUTSIDE RECORDS SUMMARY | 2023-11-23 19:37 | External Medical Summary | Summary of Care ---
Author Name Unknown Organization [facility] Address [address] [place] [address] Phone [phone] Care Team Providers Care Plaster Model And Mold Maker Name Role Phone Fab Arroyo MD Primary Care Provider +1- [phone] Reason for Visit * Reason Comments Dosage Adjustment In Person (Anticoag Cl inic) Encounter Details Date Type Department Care Team (Latest Contact Info) Description 11/12/2023 3:30 PM EDT Anticoagulation Pharmacy, [address] [address] [facility] [address] [place] [address] 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 (deep vein thrombosis)*; Anticoagulation management encounter; [facility] current use of 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 therapy Allergies Active Allergy Reactions Criticality Noted Date Comments Indomethacin 10/31/2000 resulted in seizures twice documented as of this encounter (statuses as of 11/12/2023) Medications Medication Sig Dispensed Refills Start Date [...] 150 Tablet 5 09/03/2023 Active ReliOn Pen [place] 32G X 4 MM 0 10/16/2023 [...] as of this encounter (statuses as of 11/12/2023) Active Problems Problem Noted Date Diagnosed Date [...] 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 Overview: ICD-9 Code Update [facility] current use of 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 therapy 0 08/30/2004 Overview: ICD-10 update of inactive term GENERALIZED CONVULSIVE EPILE PSY; WITHOUT MENTION OF INTRACTABLE EPILEPSY documented as of this encounter (statuses as of 11/12/2023) Resolved Problems Problem Noted Date Diagnosed Date [...] as of this encounter (statuses as of 11/12/2023) Immunizations Name Administration Dates Next Due COVID-19 mRNA, LNP-s, No Pre serve, 2-Dose Series ([employer]) 04/04/2021,03/11/2021 Pneumococcal Polysaccharide PPV23 (Pneumovax) 03/24/2013 Seasonal [...] of this encounter Progress Notes * Milvia Ram, [facility] - 11/12/2023 3:30 PM EDT Medication Therapy Disease Management - Anticoagulation Patient: Eliseo Smith | : 1960 Subjective Patient-Reported Symptoms: Patient Findings Negatives: Signs/symptoms of thrombosis, Signs/symptoms of bleeding, Change in health, Change in alcohol use, Change in activity, Upcoming invasive procedure, Missed doses, Extra doses, Change in medications, Change in diet/appetite, Bruising Objective Current Warfarin Dose As of 11/12/2023 Warfarin maintenance plan: 5 mg (5 mg x 1) every day INR Result As of 11/12/2023 INR goal: 2.0-3.0 INR used for dosin.9 (11/12/2023) Assessment & Plan Warfarin Plan As of 11/12/2023 Full warfarin instructions: 5 mg every day No change documented: Milvia Ram RPh Next INR check: 12/11/2023 Repeat PT/INR in 4 week(s) Weekly dose: not changed Additional Dosing Information: Milvia Ram [facility] Clinical Pharmacist 11/12/2023, 3:31 PM documented in this encounter Plan of Treatment Upcoming Encounters Date Type Department Care Team (Late st Contact Info) Description 11/29/2023 3:20 PM EDT Office Visit Neurology [facility] 200 [facility] [place] [address] Leona Richardson PA-C 200 [facility] [place] [address] 12/11/2023 11:50 AM EDT Anticoagulation Pharmacy, [address] [address] [facility] [address] [place] [address] 12/11/2023 12:20 PM EDT Office Visit [address] [phone] Fab Arroyo MD [address] [place], [place] [address] 12/25/2023 4:00 PM EDT Office Visit Urology, [facility] 132 [facility] [place] [address] John Owen MD 27 [facility] [address] [place] [address] 01/09/2024 2:20 PM EDT Office Visit [address] [phone] Fab Arroyo MD [address] [facility] [address] 02/13/2024 1:20 PM EDT Office Visit Podiatry [facility] [address] [place] [address] Sandee Smith, ANDREW [address] [place] [address] Health Maintenance Due Date Last Done Comments [...] 07/16/2008, Additional history exists GFR 10/16/2024 10/17/2023, 030 02/2024, 08/30/2023, Additional history exists Depression Screening [...] Comments INR FINGERSTICK, POINT OF CARE STAT 11/12/2023 3:37 PM EDT 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 (deep vein thrombosis) Anticoagulation management encounter [facility] current use of 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 therapy documented in this encounter Results * INR FINGERSTICK, POINT OF CARE (11/12/2023 3:37 PM EDT) Fingerstick INR 2.9 INR 3:41 PM EDT [facility] Blood 11/12/2023 3:37 PM EDT 11/12/2023 3:41 PM EDT Narrative [facility] - 11/12/2023 3:41 PM EDT Therapeutic ranges for non-operative patients: Prophylaxsis/treatment of DVT: (Range:2.0-3.0) Treatment of pulmonary embolism:(Range:2.0-3.0) Prevention of systemic embolism from: -tissue heart valves -acute myocardial infarction -valvular heart disease -atrial fibrillation (Range: 2.0-3.0) Mechanical prosthetic valves: (Range: 2.5-3.5) Milvia Ram [facility] POINT OF CARE TEST DOCKED DEVICE UNSOLICITED RESULTS [facility] [address] [place] [address] documented in this encounter Visit Diagnoses Diagnosis 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 (deep vein thrombosis)- Primary Personal history of venous thrombosis and embolism Anticoagulation management encounter Encounter for therapeutic drug monitoring manager terminal current use of 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 therapy documented in this encounter Care Teams Plaster Model And Mold Maker Relationship Specialty Start Date End Date Fab Arroyo MD [address] [place] [address] PCP - General 05/05/00 documented as of this encounter"
--- OUTSIDE RECORDS SUMMARY | 2023-11-23 19:37 | External Medical Summary | Summary of Care ---
Author Name Unknown Organization [facility] Address [address] [place] [address] Phone [phone] Care Team Providers Care Hydrotherapist Name Role Phone Fab Arroyo MD Primary Care Provider +1- [phone] Reason for Visit * Reason Comments Dosage Adjustment Via Phone (anticoag Cl inic) Encounter Details Date Type Department Care Team (Latest Contact Info) Description 11/21/2023 7:00 AM EDT Anticoagulation Pharmacy, [address] [address] [facility] [address] [place] [address] Anticoagulation management encounter*; 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 (deep vein thrombosis) Allergies Active Allergy Reactions Criticality Noted Date Comments Indomethacin 10/31/2000 resulted in seizures twice documented as of this encounter (statuses as of 11/21/2023) Medications Medication Sig Dispensed Refills Start Date [...] 150 Tablet 5 09/03/2023 Active ReliOn Pen [place] 32G X 4 MM 0 10/16/2023 Active [...] as of this encounter (statuses as of 11/21/2023) Active Problems Problem Noted Date Diagnosed Date [...] 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 Overview: ICD-9 Code Update long-term current use of 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 therapy 0 08/30/2004 Overview: ICD-10 update of inactive term GENERALIZED CONVULSIVE EPILE PSY; WITHOUT MENTION OF INTRACTABLE EPILEPSY documented as of this encounter (statuses as of 11/21/2023) Resolved Problems Problem Noted Date Diagnosed Date Resolved Date Acute embolism and thrombosi s of deep vein of proximal lower extremity 08/09/2022 09/16/2023 Metabolic acidosis with respiratory alkalosis 04/04/20 16 07/25/2017 DVT (deep venous thrombosis) (HCC) (aka DVT (DEEP VENOUS THROMBOSIS) (HCC)) 03/16/2015 12/21/20 17 Stasis dermatitis of both legs 04/30/2014 [...] as of this encounter (statuses as of 11/21/2023) Immunizations Name Administration Dates Next Due COVID-19 [...] this encounter Progress Notes * Milvia Ram [facility] - 11/21/2023 8:18 AM EDT Medication Therapy Disease Management - Anticoagulation Patient: Eliseo Smith | : 1960 Subjective Contacts Type Contact Phone/Fax 11/21/2023 01:35 PM EDT Phone (Outgoing) KAREN BOYD (Emergency Contact) [phone] Spoke to Patient Patient-Reported Symptoms: Objective Current Warfarin Dose As of 11/21/2023 Warfarin maintenance plan: 5 mg (5 mg x 1) every day INR Result As of 11/21/2023 INR goal: 2.0-3.0 INR used for dosin.3 (11/20/2023) Assessment & Plan Warfarin Plan As of 11/21/2023 Full warfarin instructions: 5 mg every day No change documented: Milvia Ram [facility] Next INR check: 12/11/2023 Repeat PT/INR in 3 week(s) Weekly dose: not changed Additional Dosing Information: Milvia Ram [facility] Clinical Pharmacist 11/21/2023, 8:18 AM documented in this encounter Plan of Treatment Upcoming Encounters Date Type Department Care Team (Late st Contact Info) Description 11/26/2023 1:20 PM EDT Office Visit Podiatry [facility] [place] [address] Sandee Smith DPM 132 [facility] [place] [address] 11/29/2023 3:20 PM EDT Office Visit Neurology [facility] 200 [facility] [place] [address] Leona Richardson PA-C 200 [facility] [place] [address] 12/11/2023 11:50 AM EDT Anticoagulation Pharmacy, [address] [address] [facility] [address] [place] [address] 12/11/2023 12:20 PM EDT Office Visit Family [facility], [address] [phone] Fab Arroyo MD [address] [place] [address] 12/25/2023 4:00 PM EDT Office Visit Urology, [facility] 132 [facility] [place] [address] John Owen MD 27 [facility] [address] [place] [address] 01/09/2024 2:20 PM EDT Office Visit [facility] [address] [place] [phone] Fab Arroyo MD [address] [place] [address] 02/13/2024 1:20 PM EDT Office Visit Podiatry [facility] [place] [address] Sandee Smith DPM [address] [place] [address] Health Maintenance Due Date Last Done Comments [...] as of this encounter Visit Diagnoses Diagnosis Anticoagulation management encounter- Primary Encounter for therapeutic drug monitoring 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 (deep vein thrombosis) Personal history of venous thrombosis and embolism documented in this encounter Care Teams Hydrotherapist Relationship Specialty Start Date End Date Fab Arroyo MD [address] [place] [address] PCP - General 05/05/00 documented as of this encounter"
--- OUTSIDE RECORDS SUMMARY | 2023-11-23 19:37 | External Medical Summary ---
Author Name Unknown Address Unknown Organization K01:[facility] [address] [place] [address] Laboratory Report Ordering Provider Test Date Status DEAN RUDD 11/20/2023 13:33:36 Final Rheumatoid factor at a level above 50 [...] definitively correlate with clinical severity of disease. Observation Date Value Abnormality Reference (Units ) Status Fibrin D-dimer FEU [Mass/volume] in Platelet poor plasma by Immunoassay 11/20/2023 13:33:36 <0.27 <0.50 (ug/mL FEU) Final Performing Location [facility] - [facility] [address] [place] [address]
--- OUTSIDE RECORDS SUMMARY | 2023-11-23 19:37 | External Medical Summary | Summary of Care ---
Author Name Unknown Organization [facility] Address [address] [place] [address] Phone [phone] Care Team Providers Care Paste Worker Name Role Phone Fab Arroyo MD Primary Care Provider +1- [phone] Reason for Referral * Evaluate & Treat - Unlimited Visits (Within 30 days (routine)) - Authorized Specialty Diagnoses / Procedures Referred By Contac t Referred To Contact Physical Therapy / Physical Medicine And Rehab Diagnoses Lymphedema Fab Arroyo MD [address] [place] [address] Referral ID Status Reason Start Date Expiration Date Visits Requested Visits Authorized [id number] Authorized Specialty Services Required 11/12/2023 999 999 Question Answer Referral Priority Within 30 days (routine) Where should this appointment be scheduled? 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 11/12/2023 * Telephone Encounter - Fab Arroyo MD - 11/12/2023 3:49 PM EDT Please work with [facility] to get PT for lymphedema therapy for Eliseo. He currently has PT and OT from them in the home and starting lymphedema therapy will mean that thecurrent PT would have to stop - but patient and family and I feel that addressing his lymphedema ismost important right now. OT can continue. documented in this encounter Plan of Treatment Upcoming Encounters Date Type Department Care Team (Late st Contact Info) Description 11/29/2023 3:20 PM EDT Office Visit Neurology [facility] 200 [facility] [place] [address] Leona Richardson PA-C 200 [facility] [place] [address] 12/11/2023 11:50 AM EDT Anticoagulation Pharmacy, [place] [address] [place] [facility] [place] [address] [facility] [address] [place] [address] 12/11/2023 12:20 PM EDT Office Visit Family Practice, [place] [address] [facility] [phone] Fab Arroyo MD [address] [place] [address] 12/25/2023 4:00 PM EDT Office Visit Urology, [facility] 132 [facility] [place] [address] John Owen MD 27 [facility] [address] [place] [address] 01/09/2024 2:20 PM EDT Office Visit [facility] [address] [facility] [phone] Fab Arroyo MD [address] [place] [address] 02/13/2024 1:20 PM EDT Office Visit Podiatry [facility] [address] [place] [address] Sandee Smith DPM [address] [place] [address] Scheduled Referrals Name Type Priority Associated Diagnoses Orde r Schedule PHYSICAL THERAPY REFERRAL OP Referral Within 30 days (routine) Lymphedema Ordered: 11/12/2023 Health Maintenance Due Date Last Done Comments [...] Vaccine ( - season) 2023 04/04/2021, 03/11/2021 Albumin/Creatinine Ratio [...] Visit Diagnoses Diagnosis Lymphedema- Primary Other lymphedema documented in this encounter Care Teams Paste Worker Relationship Specialty Start Date End Date Fab Arroyo MD [address] [place] [address] PCP - General 05/05/00 documented as of this encounter
--- OUTSIDE RECORDS SUMMARY | 2023-11-23 19:37 | External Medical Summary | Summary of Care ---
Author Name Unknown Organization [facility] Address [address] [place] [address] Phone [phone] Care Team Providers Care Gate Supervisor Name Role Phone Fab Moran MD Primary Care Provider +1- [phone] Reason for Visit * Reason Comments eRx-Medication Refill Encounter Details Date Type Department Care Team (Late st Contact Info) Description 11/22/2023 Refill [facility] [address] [place] [address] Fab Moran MD [address] [place] [address] Allergies Active Allergy Reactions Criticality Noted Date Comments Indomethacin 10/31/2000 resulted in seizures twice documented as of this encounter (statuses as of 11/22/2023) Medications Medication Sig Dispensed Refills Start Date [...] as needed-otc. 30 Tablet 0 2 Active Gabapentin 400 MG Oral Capsule (Neurontin) [...] TIMES DAILY 5400 mL 5 3 Active Tradjenta 5 MG Oral Tablet (linaGLIPtin)Gloria [...] 150 Tablet 5 4 Active ReliOn Pen [place] 32G X 4 MM 0 4 Active [...] THE MORNING 90 Tablet 0 4 Active glipiZIDE 10 MG Oral Tablet (Glucotrol) TAKE 1 TABLET BY MOUTH TWICE DAILY 30 MIN BEFORE A MEAL 180 Tablet 1 4 Active glipiZIDE 10 MG Oral Tablet (Glucotrol) TAKE 1 TABLET BY MOUTH TWICE DAILY 30 MIN BEFORE A MEAL 180 Tablet 1 4 11/22/19 24 Discontinued documented as of this encounter (statuses as of 11/22/2023) Active Problems Problem Noted Date Diagnosed Date [...] 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 Overview: ICD-9 Code 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 0 08/30/2004 Overview: ICD-10 update of inactive term GENERALIZED CONVULSIVE EPILE PSY; WITHOUT MENTION OF INTRACTABLE EPILEPSY documented as of this encounter (statuses as of 11/22/2023) Resolved Problems Problem Noted Date Diagnosed Date [...] as of this encounter (statuses as of 11/22/2023) Immunizations Name Administration Dates Next Due COVID-19 mRNA, LNP-s, No Pre serve, 2-Dose Series (ByteActive) 04/04/2021,03/11/2021 Pneumococcal Polysaccharide PPV23 (Pneumovax) 03/24/2013 Seasonal [...] encounter Miscellaneous Notes * Telephone Encounter - Mayela Petit RPh - 11/22/2023 4:32 PM EDTSigned Prescriptions: Disp Refills glipiZIDE 10 MG Oral Tablet (Glucotrol) 180 Ta*1 Sig: TAKE 1 TABLET BY MOUTH TWICE DAILY 30 MIN BEFORE A MEALAuthorizing Provider: FAB MORAN User: MAYELA PETIT documented in this encounter Plan of Treatment Upcoming Encounters Date Type Department Care Team (Late st Contact Info) Description 11/26/2023 1:20 PM EDT Office Visit Podiatry [facility] [address] [facility] [place] [address] Sandee Smith, [facility] 132 [facility] [place] [address] 11/29/2023 3:20 PM EDT Office Visit Neurology [facility] [address] Leona Richardson PA-C [facility] [place] [address] 12/11/2023 11:50 AM EDT Anticoagulation [facility] [address] [place] [address] [facility] [address] [place] [address] 12/11/2023 12:20 PM EDT Office Visit [place] [address] [place] [address] Fab Moran MD [address] [place] [address] 12/25/2023 4:00 PM EDT Office Visit Urology, [facility] [address] [facility] [place] [address] John Owen MD [address] [place] [address] [place] [address] 01/09/2024 2:20 PM EDT Office Visit [place] [address] [place] [address] Fab Moran MD [address] [place] [address] 02/13/2024 1:20 PM EDT Office Visit Podiatry [facility] [address] [place] [address] Sandee Smith DPM [address] [place] [address] Health Maintenance Due Date Last Done Comments HIV Screening 1973 Zoster Vaccines (1 of 2) 2008 COLONOSCOPY-EVERY 2 YRS AGES 18-100 03/01/2013 03/01/2011, 08/30/2009, 02/22/2009 Pneumococcal Vaccine: 65+ Years (2 of 2 - PCV) 03/24/2014 03/24/2013 Hepatitis B (1 of 3 - Risk 3-dose series) 2018 Diabetic Eye Exam 03/14/2021 03/14/2020 COVID-19 Vaccine (3 - season) 2023 04/04/2021, 03/11/2021 Albumin/Creatinine Ratio 07/18/2023 07/18/2022, 0511/2019 HbA1c 02/28/2024 08/30/2023, 04/05, 12/06/2022, Additional history [...] filedocumented as of this encounter Care Teams Gate Supervisor Relationship Specialty Start Date End Date Fab Moran MD [address] [place] [address] PCP - General 05/05/00 documented as of this encounter
--- OUTSIDE RECORDS SUMMARY | 2023-11-23 19:37 | External Medical Summary | Summary of Care ---
Author Name Unknown Organization [facility] Address [address] [place] [address] Phone [phone] Care Team Providers Care Prosthetics Technician Name Role Phone Fab Arroyo MD Primary Care Provider +1- [phone] Reason for Visit * Reason Comments Outpatient Testing Encounter Details Date Type Department Care Team (Late st Contact Info) Description 11/20/2023 1:20 PM EDT Laboratory Laboratory, [place] [address] [place] [address] [place] [address] [place] [address] 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 (deep vein thrombosis); Anticoagulation management encounter; half-way current use of 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 therapy; Swelling of [...] hemoglobin A1c goal of less than 8.0% ([facility]) Take 1 tablet by mouth once daily [...] 150 Tablet 5 09/03/2023 Active ReliOn Pen [place] 32G X 4 MM 0 10/16/2023 Active [...] 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 Overview: ICD-9 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 0 08/30/2004 [...] PM EDT Office Visit Neurology [facility] [place] [address] [place] [address] Leona Richardson PA-C [address] [place] [address] 12/11/2023 11:50 AM EDT Anticoagulation Pharmacy, [place] [address] [address] [facility] [place] [address] [facility] [place] [address] 12/11/2023 12:20 PM EDT Office Visit Family Practice, [place] [address] [place] [phone] Fab Arroyo MD [address] [place] [address] 12/25/2023 4:00 PM EDT Office Visit Urology, [facility] 132 [facility] [place] [address] John Owen MD 27 [facility] [address] [place] [address] 01/09/2024 2:20 PM EDT Office Visit Family [facility], [place] [address] [place] [phone] Fab Arroyo MD [address] [place] [address] 02/13/2024 1:20 PM EDT Office Visit Podiatry [facility] 132 [place] [address] Sandee Smith, ANDREW 132 [place] [address] Pending Results Name Type Priority Associated Diagnoses [...] management encounter Encounter for therapeutic drug monitoring oil heaterman current use of 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 therapy Swelling of lower extremity documented in this encounter Care Teams Prosthetics Technician Relationship Specialty Start Date End Date Fab Arroyo MD [address] [place] [address] PCP - General 05/05/00 documented as of this encounter
--- OUTSIDE RECORDS SUMMARY | 2023-11-23 19:37 | External Medical Summary | Summary of Care ---
Author Name Unknown Organization [facility] Address [address] [place] [address] Phone [phone] Care Team Providers Care Respiratory Care Practitioner Name Role Phone Fab Arroyo MD Primary Care Provider +1- [phone] Reason for Visit * Reason Onset Date Comments Advice 11/12/2023 Encounter Details Date Type Department Care Team (Late st Contact Info) Description 11/12/[address] 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 current use of 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 therapy 0 08/30/2004 [...] Advised an appt No appts available at [place] today Offered [facility] but declined Patient has appt with [facility] today at 3:30 pm Sister is asking if any provider could take a look at patients foot today around his [facility] appt Called office, spoke to Cori - [...] Description 11/12/2023 3:30 PM EDT Anticoagulation Pharmacy, [place] [facility] [place] [facility] [place] [address] [facility] [address] [facility] [place] [address] 11/29/2023 3:20 PM EDT Office Visit Neurology [facility] [address] [facility] [place] [address] Leona Richardson PA-C [address] [facility] [place] [address] 12/11/2023 12:20 PM EDT Office Visit Family [facility], [place] [address] [address] [facility] [place] [phone] Fab Arroyo MD [address] [facility] [address] 12/25/2023 4:00 PM EDT Office Visit Urology, [facility] 132 [facility] [place] [address] John Owen MD [address] [place] [address] [place] [address] 01/09/2024 2:20 PM EDT Office Visit Family [facility], [place] [address] [address] [facility] [place] [phone] Fab Arroyo MD [address] [facility] [address] 02/13/2024 1:20 PM EDT Office Visit Podiatry [facility] 132 [facility] [place] [address] Sandee Smith, DPM [address] [place] [address] Health Maintenance Due Date Last Done Comments [...] filedocumented as of this encounter Care Teams Respiratory Care Practitioner Relationship Specialty Start Date End Date Fab Arroyo MD [address] [facility] [place] [address] PCP - General 05/05/00 documented as of this encounter
--- OUTSIDE RECORDS SUMMARY | 2023-11-23 19:37 | External Medical Summary | Summary of Care ---
Author Name Unknown Organization [facility] Address [address] [place] [address] Phone [phone] Care Team Providers Care Healthcare Administrative Assistant Name Role Phone Fab Arroyo MD Primary Care Provider +1- [phone] Reason for Visit * Reason Onset Date Comments Hospital Follow-Up Uncontrolled DM Hospital Follow-Up 10/18/2023 Hospital Follow-Up 11/11/2023 Encounter Details Date Type Department Care Team (Latest Contact Info) Description 10/18/2023 3:20 PM EDT Office Visit [facility] [address] [place] [address] Fab Arroyo MD [address] [place] [address] Hepatic encephalopathy (HCC)*; Type 2 diabetes mellitus with hemoglobin A1c goal of less than 8.0% (HCC); Hospital discharge follow-up Allergies Active Allergy Reactions Criticality Noted Date Comments Indomethacin 10/31/2000 resulted in seizures twice documented as of this encounter (statuses as of 11/11/2023) Medications Medication Sig Dispensed Refills Start Date [...] 4 Active Tradjenta 5 MG Oral Tablet (linaGLIPtin)Ind [...] 150 Tablet 5 4 Active ReliOn Pen [place] 32G X 4 MM 0 4 Active Lantus SoloStar 100 UNIT/ML Subcutaneous Solution Pen-injector 0 4 Active gabapentin (NEURONTIN) 100 MG Capsule Take 1 Capsule by mouth in the morning and 1 Capsule before bedtime. 0 10/22/19 24 Discontinued(Ref ill) Warfarin Sodium 5 MG Oral Tablet (Coumadin)Indica tions:Anticoagul ation management encounter,Deep vein thrombosis (DVT) of proximal lower extremity, unspecified chronicity, unspecified laterality (HCC) TAKE 1 TO 1 & 1/2 (ONE TO ONE & ONE-HALF) TABLETS BY MOUTH ONCE DAILY DIRECTED BY COUMADIN CLINIC 135 Tablet 3 2 10/24/19 24 Discontinued Furosemide 20 MG Oral Tablet (Lasix) TAKE 1 TABLET BY MOUTH ONCE DAILY FOR FLUID 90 Tablet 3 3 10/24/19 24 Discontinued Finasteride 5 MG Oral Tablet (Proscar) TAKE 1 TABLET BY MOUTH IN THE MORNING 90 Tablet 0 4 10/30/19 24 Discontinued documented as of this encounter (statuses as of 11/11/2023) Active Problems Problem Noted Date Diagnosed Date [...] as of this encounter (statuses as of 11/11/2023) Resolved Problems Problem Noted Date Diagnosed Date [...] as of this encounter (statuses as of 11/11/2023) Immunizations Name Administration Dates Next Due COVID-19 [...] Sign Reading Time Taken Comments Blood Pressure 116/60 10/18/2023 3:15 PM EDT Pulse 78 10/18/2023 3:15 PM EDT Temperature 36.4 C (97.5 F) 10/18/2023 3:15 PM ED T Respiratory Rate 16 10/18/2023 3:15 PM EDT Oxygen Saturation 98% 10/18/2023 3:15 PM EDT Inhaled Oxygen Concentration - - Weight 119.8 kg (264 lb 3.2 oz) 10/18/2023 3:15 PM EDT Height - - Body Mass Index 34.86 08/29/2023 3:42 PM EST documented in this encounter Progress Notes * Fab Arroyo MD - 11/11/2023 8:51 PM EDT Subjective: Eliseo Smith is a 63 year old male here today for Chief Complaint Patient presents with Hospital Follow-Up Uncontrolled DM Hospital Follow-Up Pt presents for hospital follow up. Admitted to [facility] 10/04/23 - 10/09/23. Admitted with hepatic encephalopathy and uncontrolled DM. Please see d/c summary for full details. He is feeling better. Currently, living with sister. Is taking lactulose and having adequate bowel movements. Wants to discuss options for diabetes management. Past Medical History: Diagnosis Date Benign neoplasm [...] by mouth once daily 90 Tab 5 Gabapentin 400 MG Oral Capsule (Neurontin) Take [...] THE EVENING. 150 Tablet 5 ReliOn Pen [place] 32G X 4 MM Lantus SoloStar 100 UNIT/ML Subcutaneous Solution Pen-injector Lidocaine 5 % External Ointment Apply 1 Film topically to affected area daily. Apply to legs as needed (Patient not taking: Reported on 04/22/2023) Loratadine 10 MG Oral Tablet (Claritin) Take by mouth 1 Tablet in the morning. x1-2 wks then as needed-otc. (Patient not taking: Reported on 08/29/2023) 30 Tablet 0 Gabapentin 100 MG Oral Capsule (Neurontin) Take [...] facility-administered medications for this visit. Objective: BP 116/60 | Pulse 78 | Temp 36.4 C (97.5 F) | Resp 16 | Wt 119.8 kg (264 lb 3.2 oz) | SpO2 98% | BMI 34.86 kg/m | BSA 2.48 m GEN: NAD CHEST: CTA B CV: RRR EXT: stable edema. No open wounds Assessment and Plan: Hepatic encephalopathy (HCC) (Primary) -continue lactulose, monitor mental status Type 2 diabetes mellitus with hemoglobin A1c goal of less than 8.0% (HCC) - HEMOGLOBIN A1C; Future; Expected date: 10/21/2023 Hospital discharge follow-up - DISCH MED RECON CUR MED LIS Follow Up: Return in about 6 weeks (around 11/29/2023) for 6 weeks recheck - can send back to me. | For: 6 weeks recheck - can send back to me Fab Arroyo MD documented in this encounter Nursing Notes * Cori Baez LPN - 10/18/2023 3:23 PM EDT The patient has been properly identified by confirmation of name and date of . Chief Complaint Patient presents with Hospital Follow-Up Uncontrolled DM documented in this encounter Plan of Treatment Upcoming Encounters Date Type Department Care Team (Late st Contact Info) Description 11/12/2023 3:30 PM EDT Anticoagulation Pharmacy, [place] [address] [facility] [address] [place] [address] 11/29/2023 3:20 PM EDT Office Visit Neurology [employer] [address] [place] [address] Leona Richardson PA-C [address] [place] [address] 12/11/2023 12:20 PM EDT Office Visit Family [facility], [place] [address] [facility] [place] [phone] Fab Arroyo MD [address] [place] [address] 12/25/2023 4:00 PM EDT Office Visit Urology, [facility] [address] [place] [address] John Owen MD [address] [facility] [place] [address] [place] [address] 01/09/2024 2:20 PM EDT Office Visit Family Practice, [place] [address] [place] [address] Fab Arroyo MD [address] [place] [address] 02/13/2024 1:20 PM EDT Office Visit Podiatry [facility] 132 [place] [address] Sandee Smith, ANDREW 132 [facility] [address] Scheduled Orders Name Type Priority Associated Diagnoses Orde r Schedule HEMOGLOBIN A1C Lab Routine Type 2 diabetes mellitus with hemoglobin A1c goal of less than 8.0% ([facility]) Expected: 10/21/2023 (Approximate), Expires: 10/17/2024 Health Maintenance Due Date Last Done Comments [...] as of this encounter Visit Diagnoses Diagnosis Hepatic encephalopathy (HCC)- Primary Hepatic encephalopathy Type 2 diabetes mellitus with hemoglobin A1c goal of less than 8.0% (HCC) Hospital discharge follow-up Other follow-up examination documented in this encounter Care Teams Healthcare Administrative Assistant Relationship Specialty Start Date End Date Fab Arroyo MD [address] [place] [address] PCP - General 05/05/00 documented as of this encounter"
--- OUTSIDE RECORDS SUMMARY | 2023-11-23 19:37 | External Medical Summary ---
Author Name Unknown Address Unknown Organization : Laboratory Report Ordering Provider Test Date Status CAROLINE WILSON 11/12/2023 15:37:05 Final Therapeutic ranges for non-o perative patients:
Prophylaxsis/treatment of DVT: (Range:2.0-3.0)
Treatment of pulmonary embolism:(Range:2.0-3.0)
Prevention of systemic embolism from:
-tissue heart valves
-acute myocardial infarction
-valvular heart disease
-atrial fibrillation
(Range: 2.0-3.0)
Mechanical prosthetic valves: (Range: 2.5-3.5) Observation Date Value Abnormality Reference (Units ) Status INR in Capillary blood by Coagulation assay 11/12/2023 15:37:05 2.9 (INR) Final Performing Location
--- OUTSIDE RECORDS SUMMARY | 2023-11-23 19:38 | External Medical Summary | Summary of Care ---
Author Name Unknown Organization [facility] Address [address] [place] [address] Phone [phone] Care Team Providers Care Crew Scheduler Name Role Phone Fab Arroyo MD Primary Care Provider +1- [phone] Encounter Details Date Type Department Care Team (Late st Contact Info) Description 10/17/2023 Result Scan Unspecified Department <No scans attached> Allergies Active Allergy Reactions Criticality Noted Date Comments Indomethacin 10/31/2000 resulted in seizures twice documented as of this encounter (statuses as of 10/18/2023) Medications Medication Sig Dispensed Refills Start Date [...] of less than 8.0% ([facility]) Take 1 tablet by mouth [...] as of this encounter (statuses as of 10/18/2023) Active Problems Problem Noted Date Diagnosed Date [...] 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 Overview: ICD-9 Code 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 0 08/30/2004 Overview: ICD-10 update of inactive term GENERALIZED CONVULSIVE EPILE PSY; WITHOUT MENTION OF INTRACTABLE EPILEPSY documented as of this encounter (statuses as of 10/18/2023) Resolved Problems Problem Noted Date Diagnosed Date [...] as of this encounter (statuses as of 10/18/2023) Immunizations Name Administration Dates Next Due COVID-19 [...] Care Team (Late st Contact Info) Description 10/18/2023 3:20 PM EDT Office Visit Family [facility], [place] [address] [place] [address] Fab Arroyo MD [address] [place] [address] 10/28/2023 3:20 PM EDT Anticoagulation Pharmacy, [place] [address] [place] [address] [facility] [address] [place] [address] 11/05/2023 1:40 PM EDT Office Visit Podiatry [facility] [address] [place] [address] Sandee Smith DPM [address] [place] [address] 11/29/2023 3:20 PM EDT Office Visit Neurology [facility] [place] [address] [place] [address] Leona Richardson PA-C [address] [place] [address] 12/25/2023 4:00 PM EDT Office Visit Urology, [facility] [address] [facility] [place] [address] Jonh Owen MD 27 [facility] [address] [place] [address] 01/09/2024 2:20 PM EDT Office Visit [facility] [address] [facility] [place] [address] Fab Arroyo MD [address] [place], [place] [address] Health Maintenance Due Date Last Done Comments [...] Exam 03/14/2021 03/14/2020 COVID-19 Vaccine ( - 2022- season) 2023 04/04/2021, 03/11/2021 Influenza Vaccine (FLU shot) (#1) 2023 05/23/2010, 05/12/2009, 07/16/2008, Additional history exists Albumin/Creatinine Ratio 07/18/2023 07/18/2022, 11/2019 Depression Screening 09/12/2023 09/12/2022 HbA1c 02/28/2024 08/30/2023, 04/05, 12/06/2022, Additional history exists GFR 10/16/2024 10/17/2023, 02/2024, 08/30/2023, Additional history exists Lipid Panel 04/22/2028 04/22/2023, [...] Procedure Name Priority Date/Time Associated Diagnosis Comments OUTSIDE LAB RESULTS 10/17/2023 documented in this encounter Results * OUTSIDE LAB RESULTS (10/17/2023) 10/17/2023 No Physician Data Unknown LABORATORY documented in this encounter Care Teams Crew Scheduler Relationship Specialty Start Date End Date Fab Arroyo MD [address] [place] [address] PCP - General 05/05/00 documented as of this encounter
--- OUTSIDE RECORDS SUMMARY | 2023-11-23 19:38 | External Medical Summary ---
Author Name Unknown Address Unknown Organization K0G:[facility] [address] [place] [address] Laboratory Report Ordering Provider Test Date Status NUHA MITCHELL 10/12/2023 05:57:01 Final Warfarin Therapy
INR: 2 .0-3.0 conventional anticoagulation
INR: 2.5- 3.5 high intensity anticoagulation Observation Date Value Abnormality Reference (Units ) Status PT 10/12/2023 05:57:01 23.0 Above high normal 11 .6-15.2 (seconds) Final INR 10/12/2023 05:57:01 2.0 Above high normal 0. 8-1.2 Final Performing Location [facility]ORY [facility] [address] [place] [address]
--- OUTSIDE RECORDS SUMMARY | 2023-11-23 19:38 | External Medical Summary | Summary of Care ---
Author Name Unknown Organization [facility] Address [address] [place] [address] Phone [phone] Care Team Providers Care Nursing Tech Name Role Phone Fab Arroyo MD Primary Care Provider +1- [phone] Reason for Visit * Reason Onset Date Comments Advice 10/21/2023 Encounter Details Date Type Department Care Team (Late st Contact Info) Description 10/21/2023 Telephone [facility] [address] [place] [address] Fab Arroyo MD [address] [place] [address] Advice Allergies Active Allergy Reactions Criticality Noted Date Comments Indomethacin 10/31/2000 resulted in seizures twice documented as of this encounter (statuses as of 10/22/2023) Medications Medication Sig Dispensed Refills Start Date [...] 08/29/2023 Warfarin Sodium 5 MG Oral Tablet (Coumadin)Indicat [...] 04/04/2023 Active Topiramate 200 MG Oral Tablet (topAMAX)Indicati [...] 08/15/2023 Active Tradjenta 5 MG Oral Tablet (linaGLIPtin)Gloria [...] 150 Tablet 5 09/03/2023 Active ReliOn Pen [place] 32G X 4 MM 0 10/16/2023 Active Lantus SoloStar 100 UNIT/ML Subcutaneous Solution Pen-injector 0 10/16/2023 Active Gabapentin 100 MG Oral Capsule (Neurontin) Take 1 Capsule by mouth in the morning and 1 Capsule before bedtime. 180 Capsule 3 10/22/2023 Active gabapentin (NEURONTIN) 100 MG Capsule Take 1 Capsule by mouth in the morning and 1 Capsule before bedtime. 0 Discontinue d(Refill) documented as of this encounter (statuses as of 10/22/2023) Active Problems Problem Noted Date Diagnosed Date [...] arthropathy 05/19/2009 Overview: ICD-9 Code Update senior living current use of 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 therapy 0 08/30/2004 Overview: ICD-10 update of inactive term GENERALIZED CONVULSIVE EPILE PSY; WITHOUT MENTION OF INTRACTABLE EPILEPSY documented as of this encounter (statuses as of 10/22/2023) Resolved Problems Problem Noted Date Diagnosed Date [...] as of this encounter (statuses as of 10/22/2023) Immunizations Name Administration Dates Next Due COVID-19 [...] Telephone Encounter - Fab Arroyo MD - 10/22/2023 9:12 AM EDT Sent erx * Telephone Encounter - Helen Vallecillo LPN - 10/21/2023 1:45 PM EDT Karen, patient's sister calling in stating that patient was to receive a prescription for [id number] mg BID along with the Gabapentin 400 mg that he is already prescribed at bedtime. Please advise. Pharmacy selected. documented in this encounter Plan of Treatment Upcoming Encounters Date Type Department Care Team (Late st Contact Info) Description 10/28/2023 3:20 PM EDT Anticoagulation Pharmacy, [place] [address] [place] [facility] [place] [address] [place], [facility] [address] [place] [address] 11/05/2023 1:40 PM EDT Office Visit Podiatry [facility] [place] [address] Sandee Smith [facility] 132 [facility] [place] [address] 11/29/2023 3:20 PM EDT Office Visit Neurology [facility] 200 [facility] [place] [address] Leona Richardson PA-C 200 [facility] [place] [address] 12/25/2023 4:00 PM EDT Office Visit Urology, [facility] 132 [facility] [place] [address] John Owen MD [address] [facility] [address] [place] [address] 01/09/2024 2:20 PM EDT Office Visit Family Practice, [place] [address] [place] [facility] [phone] Fab Arroyo MD [address] [place] [address] Health Maintenance Due Date Last Done Comments [...] 12/06/2022, Additional history exists GFR 10/16/2024 10/17/2023, 0 02/2024, 08/30/2023, Additional history exists Lipid Panel [...] filedocumented as of this encounter Care Teams Nursing Tech Relationship Specialty Start Date End Date Fab Arroyo MD [address] [place] [address] PCP - General 05/05/00 documented as of this encounter
--- OUTSIDE RECORDS SUMMARY | 2023-11-23 19:38 | External Medical Summary ---
Author Name Unknown Address Unknown Organization [id number] [address] [place] [address] Laboratory Report Ordering Provider Test Date Status WATSON YATES 10/13/2023 05:36:27 Final Observation Date Value Abnormality Reference (Units ) Status Ammonia 10/13/2023 05:36:27 107 Above upper panic limits 11-35 (umol/L) Final Performing Location [facility] - [address] [place] [address]
--- OUTSIDE RECORDS SUMMARY | 2023-11-23 19:38 | External Medical Summary ---
Author Name Unknown Address Unknown Organization K09:[facility] [address] [place] [address] Laboratory Report Ordering Provider Test Date Status WATSON YATES 10/17/2023 06:24:25 Final Observation Date Value Abnormality Reference (Units ) Status WBC, Total 10/17/2023 06:24:25 7.82 4.00-10.8 0 (K/uL) Final RBC 10/17/2023 06:24:25 4.00 4.50-5.25 (M/uL) Final Hemoglobin 10/17/2023 06:24:25 13.4 Below low normal 14 .0-16.8 (g/dL) Final HCT 10/17/2023 06:24:25 39.6 Below low normal 40. 0-48.4 (%) Final MCV 10/17/2023 06:24:25 99.0 82.0-99.5 (fL) Final MCH 10/17/2023 06:24:25 33.5 27.0-34.0 (pg) Final MCHC 10/17/2023 06:24:25 33.8 32.0-36.0 (g/dL) Final RDW 10/17/2023 06:24:25 14.9 11.5-15.5 (%) Final Platelets 10/17/2023 06:24:25 189 140-400 (K /uL) Final MPV 10/17/2023 06:24:25 9.9 6.6-11.1 ( fL) Final Performing Location [facility] [address] [place] [address]
--- OUTSIDE RECORDS SUMMARY | 2023-11-23 19:38 | External Medical Summary ---
Author Name Unknown Address Unknown Organization K09[facility] [place] [address] Laboratory Report Ordering Provider Test Date Status NUHA MITCHELL 10/11/2023 06:15:00 Final Warfarin Therapy
INR: 2 .0-3.0 conventional anticoagulation
INR: 2.5- 3.5 high intensity anticoagulation Observation Date Value Abnormality Reference (Units ) Status PT 10/11/2023 06:15:00 22.4 Above high normal 11 .6-15.2 (seconds) Final INR 10/11/2023 06:15:00 2.0 Above high normal 0. 8-1.2 Final Performing Location [facility] [place] [address]
--- OUTSIDE RECORDS SUMMARY | 2023-11-23 19:38 | External Medical Summary | Summary of Care ---
Author Name Unknown Organization [facility] Address [address] [place] [address] Phone [phone] Care Team Providers Care Business Applications Manager Name Role Phone Blaire Moran MD Primary Care Provider +1- [phone] Reason for Visit * Reason Comments eRx-Medication Refill Encounter Details Date Type Department Care Team (Late st Contact Info) Description 10/23/2023 Refill [facility] [address] [place] [address] Blaire Moran MD [address] [place] [address] Anticoagulation management encounter; Deep vein thrombosis (DVT) of proximal lower extremity, unspecified chronicity, unspecified laterality (HCC) Allergies Active Allergy Reactions Criticality Noted Date Comments Indomethacin 10/31/2000 resulted in seizures twice documented as of this encounter (statuses as of 10/24/2023) Medications Medication Sig Dispensed Refills Start Date [...] goal of less than 8.0% ([facility]) Take 1 tablet by mouth [...] 150 Tablet 5 4 Active ReliOn Pen [place] 32G X 4 MM 0 4 Active [...] [facility] 135 Tablet 3 4 Active Warfarin Sodium 5 MG Oral [...] 90 Tablet 3 3 10/24/19 24 Discontinued documented as of this encounter (statuses as of 10/24/2023) Active Problems Problem Noted Date Diagnosed Date [...] arthropathy 05/19/2009 Overview: ICD-9 Code 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 0 08/30/2004 Overview: ICD-10 update of inactive term GENERALIZED CONVULSIVE EPILE PSY; WITHOUT MENTION OF INTRACTABLE EPILEPSY documented as of this encounter (statuses as of 10/24/2023) Resolved Problems Problem Noted Date Diagnosed Date [...] as of this encounter (statuses as of 10/24/2023) Immunizations Name Administration Dates Next Due COVID-19 [...] encounter Miscellaneous Notes * Telephone Encounter - Jim Crowe, [facility] - 10/24/2023 1:53 PM EDTSigned Prescriptions: Disp Refills Furosemide 20 MG Oral Tablet (Lasix) 90 Tab*1 Sig: TAKE 1 TABLETBY MOUTH ONCE DAILY FOR FLUIDAuthorizing Provider: BLAIRE MORAN User: JIM CROWE Warfarin Sodium 5 MG Oral Tablet (Coumadin)135 Ta*3 Sig: TAKE 1 TO 1 & 1/2 TABLETS BY MOUTHONCE DAILY DIRECTED BY COUMADIN CLINICAuthorizing Provider: BLAIRE MORAN User: JIM CROWE documented in this encounter Plan of Treatment Upcoming Encounters Date Type Department Care Team (Late st Contact Info) Description 10/28/2023 3:20 PM EDT [facility] [place] [address] [facility] [address] [facility] [address] [place] [facility] [place] [address] 11/05/2023 1:40 PM EDT Office Visit Podiatry [facility] [address] [facility] [place] [address] Sandee Smith [address] 132 [facility] [place] [address] 11/29/2023 3:20 PM EDT Office Visit Neurology Christy Townsend [place] [address] [place] [address] Leona Richardson PA-C [address] [place] [address] 12/11/2023 12:20 PM EDT Office Visit Family [facility], [place] [address] [facility] [phone] Blaire Moran MD [address] [place] [address] 12/25/2023 4:00 PM EDT Office Visit Urology, [facility] [address] [place] [address] John Owen MD 27 [facility] [place] [address] [facility] [place] [address] 01/09/2024 2:20 PM EDT Office Visit Family Practice, [place] [address] [place] [address] Blaire Moran MD [address] [place] [address] Health Maintenance Due Date Last Done Comments [...] this encounter Visit Diagnoses Diagnosis Anticoagulation management encounter Encounter for therapeutic drug monitoring Deep vein thrombosis (DVT) of proximal lower extremity, unspecified chronicity, unspecified laterality (HCC) documented in this encounter Care Teams Business Applications Manager Relationship Specialty Start Date End Date Blaire Moran MD [address] [place] [address] PCP - General 05/05/00 documented as of this encounter
--- OUTSIDE RECORDS SUMMARY | 2023-11-23 19:38 | External Medical Summary ---
Author Name Unknown Address Unknown Organization K09:[facility] [place] [place] [address] Laboratory Report Ordering Provider Test Date Status NUHA MITCHELL 10/14/2023 05:40:00 Final Warfarin Therapy
INR: 2 .0-3.0 conventional anticoagulation
INR: 2.5- 3.5 high intensity anticoagulation Observation Date Value Abnormality Reference (Units ) Status PT 10/14/2023 05:40:00 23.6 Above high normal 11 .6-15.2 (seconds) Final INR 10/14/2023 05:40:00 2.1 Above high normal 0. 8-1.2 Final Performing Location [facility] [place] [address]
--- OUTSIDE RECORDS SUMMARY | 2023-11-23 19:38 | External Medical Summary ---
Author Name Unknown Address Unknown Organization : Laboratory Report Ordering Provider Test Date Status CAROLINE WILSON 10/28/2023 15:30:36 Final Therapeutic ranges for non-o perative patients:
Prophylaxsis/treatment of DVT: (Range:2.0-3.0)
Treatment of pulmonary embolism:(Range:2.0-3.0)
Prevention of systemic embolism from:
-tissue heart valves
-acute myocardial infarction
-valvular heart disease
-atrial fibrillation
(Range: 2.0-3.0)
Mechanical prosthetic valves: (Range: 2.5-3.5) Observation Date Value Abnormality Reference (Units ) Status INR in Capillary blood by Coagulation assay 10/28/2023 15:30:36 4.5 (INR) Final Performing Location
--- OUTSIDE RECORDS SUMMARY | 2023-11-23 19:38 | External Medical Summary | Summary of Care ---
Author Name Unknown Organization [facility] Address [address] [place] [address] Phone [phone] Care Team Providers Care Business Management Specialist Name Role Phone Fab Arroyo MD Primary Care Provider +1- [phone] Encounter Details Date Type Department Care Team (Late st Contact Info) Description 10/24/2023 Orders Only PATIENT PORTAL DO NOT DELETE THIS DEPT USED BY [place] [id number] Allergies Active Allergy Reactions Criticality Noted Date [...] 08/29/2023 Warfarin Sodium 5 MG Oral Tablet (Coumadin)Indicatio ns:Anticoagulation management encounter,Deep vein thrombosis (DVT) of proximal lower extremity, unspecified chronicity, unspecified laterality ([facility]) TAKE 1 TO 1 & 1/2 (ONE [...] (topAMAX)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 [place] [address] 11/29/2023 3:20 PM EDT Office Visit Neurology Christy Townsend [place] [address] [place] [address] Leona Richardson PA-C [address] [place] [address] 12/11/2023 12:20 PM EDT Office Visit Family Practice, [place] [address] [place] [address] Fab Arroyo MD [address] [place] [address] 12/25/2023 4:00 PM EDT Office Visit Urology, [facility] [address] [facility] [place] [address] John Owen MD 27 [facility] [address] [place] [id number] 01/09/2024 2:20 PM EDT Office Visit Family Practice, [place] [address] [place] [address] Fab Arroyo MD [address] [place], [place] [phone] Health Maintenance Due Date Last Done Comments [...] filedocumented as of this encounter Care Teams Business Management Specialist Relationship Specialty Start Date End Date Fab Arroyo MD [address] [place] [address] PCP - General 05/05/00 documented as of this encounter
--- OUTSIDE RECORDS SUMMARY | 2023-11-23 19:38 | External Medical Summary ---
Author Name Unknown Address Unknown Organization [facility] [place] [address] Laboratory Report Ordering Provider Test Date Status WATSON YATES 10/10/2023 06:30:57 Final Observation Date Value Abnormality Reference (Units ) Status WBC, Total 10/10/2023 06:30:57 7.94 4.00-10.8 0 (K/uL) Final RBC 10/10/2023 06:30:57 4.10 4.50-5.25 (M/uL) Final Hemoglobin 10/10/2023 06:30:57 13.9 Below low normal 14 .0-16.8 (g/dL) Final HCT 10/10/2023 06:30:57 40.4 40.0-48.4 (%) Final MCV 10/10/2023 06:30:57 98.5 82.0-99.5 (fL) Final MCH 10/10/2023 06:30:57 33.9 27.0-34.0 (pg) Final MCHC 10/10/2023 06:30:57 34.4 32.0-36.0 (g/dL) Final RDW 10/10/2023 06:30:57 14.2 11.5-15.5 (%) Final Platelets 10/10/2023 06:30:57 144 140-400 (K /uL) Final MPV 10/10/2023 06:30:57 10.3 6.6-11.1 ( fL) Final Performing Location [facility] [place] [address]
--- OUTSIDE RECORDS SUMMARY | 2023-11-23 19:38 | External Medical Summary ---
Author Name Unknown Address Unknown Organization K09:[facility] [place] [address] Laboratory Report Ordering Provider Test Date Status WATSON YATES 10/10/2023 06:30:57 Final Observation Date Value Abnormality Reference (Units ) Status BUN 10/10/2023 06:30:57 20 6-20 (mg/dL) Final Creatinine 10/10/2023 06:30:57 0.9 0.6-1.2 (mg/dL) Final Glomerular filtration rate/1.73 sq M.predicted [Volume Rate/Area] in Serum, Plasma or Blood by Creatinine-based formula (CKD-EPI) 10/10/2023 06:30:57 >90 >=60 (mL/min) Final eGFR is calculated based on the CKD-EPI 2020 equation SODIUM 10/10/2023 06:30:57 138 135-146 (m mol/L) Final Potassium 10/10/2023 06:30:57 4.2 3.5-5.1 (m mol/L) Final Cl 10/10/2023 06:30:57 106 98-107 (mm ol/L) Final CO2 10/10/2023 06:30:57 20 Below low normal 22- 32 (mmol/L) Final Anion gap 10/10/2023 06:30:57 12 7-15 (mmol /L) Final Glucose 10/10/2023 06:30:57 151 Above high normal 70 -120 (mg/dL) Final Calcium 10/10/2023 06:30:57 8.5 8.4-10.2 ( mg/dL) Final Performing Location [facility] [place] [address]
--- OUTSIDE RECORDS SUMMARY | 2023-11-23 19:38 | External Medical Summary ---
Author Name Unknown Address Unknown Organization K09:[facility] [place] [address] Laboratory Report Ordering Provider Test Date Status WATSON YATES 10/17/2023 06:24:25 Final Observation Date Value Abnormality Reference (Units ) Status BUN 10/17/2023 06:24:25 26 Above high normal 6-20 (mg/dL) Final Creatinine 10/17/2023 06:24:25 0.9 0.6-1.2 (mg/dL) Final Glomerular filtration rate/1.73 sq M.predicted [Volume Rate/Area] in Serum, Plasma or Blood by Creatinine-based formula (CKD-EPI) 10/17/2023 06:24:25 >90 >=60 (mL/min) Final eGFR is calculated based on the CKD-EPI 2020 equation SODIUM 10/17/2023 06:24:25 142 135-146 (m mol/L) Final Potassium 10/17/2023 06:24:25 4.1 3.5-5.1 (m mol/L) Final Cl 10/17/2023 06:24:25 110 Above high normal 98 -107 (mmol/L) Final CO2 10/17/2023 06:24:25 19 Below low normal 22- 32 (mmol/L) Final Anion gap 10/17/2023 06:24:25 13 7-15 (mmol /L) Final Glucose 10/17/2023 06:24:25 134 Above high normal 70 -120 (mg/dL) Final Calcium 10/17/2023 06:24:25 8.6 8.4-10.2 ( mg/dL) Final Performing Location [facility] [place] [address]
--- OUTSIDE RECORDS SUMMARY | 2023-11-23 19:38 | External Medical Summary | Summary of Care ---
Author Name Unknown Organization [facility] Address [address] [place] [address] Phone [phone] Care Team Providers Care Telehealth Director Name Role Phone Fab Arroyo MD Primary Care Provider +1- [phone] Reason for Visit * Reason Onset Date Comments Appointment 10/18/2023 Encounter Details Date Type Department Care Team (Late st Contact Info) Description 10/18/2023 Telephone [facility] [address] [place] [address] Fab Arroyo MD [address] [place] [address] Appointment Allergies Active Allergy Reactions Criticality Noted Date Comments Indomethacin 10/31/2000 resulted in seizures twice documented as of this encounter (statuses as of 10/23/2023) Medications Medication Sig Dispensed Refills Start Date [...] than 8.0% ([facility]) Take 1 tablet by mouth [...] 150 Tablet 5 09/03/2023 Active ReliOn Pen [place] 32G X 4 MM 0 10/16/2023 Active Lantus SoloStar 100 UNIT/ML Subcutaneous Solution Pen-injector 0 10/16/2023 Active documented as of this encounter (statuses as of 10/23/2023) Active Problems Problem Noted Date Diagnosed Date [...] 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 Patient will arrive at 12:30 since it's an overbook spot. 10/23/2023 * Telephone Encounter - Fab Arroyo MD - 10/22/2023 10:23 PM EDT There are 2 appointments on SatDecember 10 that are blocked as "Close in return." I am not sure what that means, but if they can be used, that would be great. If not, please overbook at the end of the schedule that day. * Telephone Encounter - Nickie Simmons OSA - 10/18/2023 4:38 PM EDT I was not able to schedule a 6 wk f/u. Please call to schedule. documented in this encounter Plan of Treatment Upcoming Encounters Date Type Department Care Team (Late st Contact Info) Description 10/28/2023 3:20 PM EDT [facility] Pharm[facility], [place] [address] [facility] [address] [facility] [address] [place] [facility] [place] [address] 11/05/2023 1:40 PM EDT Office Visit Podiatry [facility] [address] [place] [address] Sandee Smith [facility] [address] [place] [address] 11/29/2023 3:20 PM EDT Office Visit Neurology [facility] [address] [facility] [place] [address] Leona Richardson PA-C 200 [facility] [place] [address] 12/11/2023 12:20 PM EDT Office Visit [place] [address] [facility] [phone] Fab Arroyo MD [address] [facility] [address] 12/25/2023 4:00 PM EDT Office Visit Urology, [facility] 132 [facility] [place] [address] John Owen MD 27 [facility] [address] [place] [address] 01/09/2024 2:20 PM EDT Office Visit [place] [address] [place] [address] Fab Arroyo MD [address] [place] [id number] Health Maintenance Due Date Last Done Comments [...] filedocumented as of this encounter Care Teams Telehealth Director Relationship Specialty Start Date End Date Fab Arroyo MD [address] [place] [address] PCP - General 05/05/00 documented as of this encounter
--- OUTSIDE RECORDS SUMMARY | 2023-11-23 19:38 | External Medical Summary | Summary of Care ---
Author Name Unknown Organization [facility] Address [address] [place] [address] Phone [phone] Care Team Providers Care General Office Worker Name Role Phone Fab Arroyo MD Primary Care Provider [phone]- [phone] Reason for Visit * Reason Comments Dosage Adjustment In Person (Anticoag Cl inic) Encounter Details Date Type Department Care Team (Latest Contact Info) Description 10/28/2023 3:20 PM EDT Anticoagulation Pharmacy, [address] [address] [facility] [address] [place] [address] 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 (deep vein thrombosis)*; Anticoagulation management encounter; 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 Allergies Active Allergy Reactions Criticality Noted Date Comments Indomethacin 10/31/2000 resulted in seizures twice documented as of this encounter (statuses as of 10/29/2023) Medications Medication Sig Dispensed Refills Start Date [...] 150 Tablet 5 09/03/2023 Active ReliOn Pen [place] 32G X 4 MM 0 10/16/2023 Active [...] [facility] 135 Tablet 3 10/24/2023 Active documented as of this encounter (statuses as of 10/29/2023) Active Problems Problem Noted Date Diagnosed Date [...] 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 Overview: ICD-9 Code Update [facility] current use of 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 therapy 0 08/30/2004 Overview: ICD-10 update of inactive term GENERALIZED CONVULSIVE EPILE PSY; WITHOUT MENTION OF INTRACTABLE EPILEPSY documented as of this encounter (statuses as of 10/29/2023) Resolved Problems Problem Noted Date Diagnosed Date [...] as of this encounter (statuses as of 10/29/2023) Immunizations Name Administration Dates Next Due COVID-19 mRNA, LNP-s, No Pre serve, 2-Dose Series ([employer]) 04/04/2021,03/11/2021 Pneumococcal Polysaccharide PPV23 (Pneumovax) 03/24/2013 Seasonal [...] this encounter Progress Notes * Milvia Ram, [facility] - 10/28/2023 3:25 PM EDT Images from the original note were not included. Medication Therapy Disease Management - Anticoagulation Patient: Eliseo Smith | : 1960 Subjective Patient-Reported Symptoms: Patient Findings Positives: Change in diet/appetite (large changes to his diet to hopefully better control his BG), Hospital admission (admitted at [facility] and then discharged to [facility] until 10/16) Negatives: Signs/symptoms of thrombosis, Signs/symptoms of bleeding, Change in health, Change in alcohol use, Change in activity, Upcoming invasive procedure, Missed doses, Extra doses, Change in medications, Bruising Objective Current Warfarin Dose As of 10/28/2023 Warfarin maintenance plan: 7.5 mg (5 mg x 1.5) every Mon, Fri; 5 mg (5 mg x 1) all other days INR Result As of 10/28/2023 INR goal: 2.0-3.0 INR used for dosin.5 (10/28/2023) Assessment & Plan Warfarin Plan As of 10/28/2023 Full warfarin instructions: 10/27: Hold; 10/28: Hold; Otherwise 5 mg every day Next INR check: 11/12/2023 Repeat PT/INR in 3 week(s) Weekly dose: decreased Additional Dosing Information: Milvia Ram [facility] Clinical Pharmacist 10/28/2023, 3:25 PM documented in this encounter Plan of Treatment Upcoming Encounters Date Type Department Care Team (Late st Contact Info) Description 10/29/2023 1:00 PM EDT Home Visit Care Coordination and Integration [address] [place] [address] Millie Baez [facility] Health Chip Loft Worker [address] [place] [address] 11/07/2023 1:40 PM EDT Office Visit Podiatry [facility] [address] [facility] [place] [address] Sandee Smith DPM [address] [place] [address] 11/12/2023 3:30 PM EDT Anticoagulation Pharmacy, [address] [address] [facility] [address] [place] [address] 11/29/2023 3:20 PM EDT Office Visit Neurology Christy Townsend [place] [facility] [place] [address] Leona Richardson PA-C 200 [facility] [place] [address] 12/11/2023 12:20 PM EDT Office Visit [place] [address] [place] [address] Fab Arroyo MD [address], [place] [phone] 12/25/2023 4:00 PM EDT Office Visit Urology, [facility] 132 [facility] [place] [address] John Owen MD 27 [facility] [address] [place] [address] 01/09/2024 2:20 PM EDT Office Visit [place] [address] [place] [facility] [place] [address] Fab Arroyo MD [address] [place], [place] [phone] Health Maintenance Due Date Last Done Comments [...] Comments INR FINGERSTICK, POINT OF CARE STAT 10/28/2023 3:30 PM EDT 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 (deep vein thrombosis) Anticoagulation management encounter [facility] current use of 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 therapy documented in this encounter Results * INR FINGERSTICK, POINT OF CARE (10/28/2023 3:30 PM EDT) Fingerstick INR 4.5 INR 7:55 AM EDT [facility]01 Blood 10/28/2023 3:30 PM EDT 10/29/2023 7:55 AM EDT [facility]ative [facility] - 10/29/2023 7:55 AM EDT Therapeutic ranges for non-operative patients: Prophylaxsis/treatment of DVT: (Range:2.0-3.0) Treatment of pulmonary embolism:(Range:2.0-3.0) Prevention of systemic embolism from: -tissue heart valves -acute myocardial infarction -valvular heart disease -atrial fibrillation (Range: 2.0-3.0) Mechanical prosthetic valves: (Range: 2.5-3.5) Milvia Ram [facility] LAB POINT OF CARE TEST DOCKED DEVICE UNSOLICITED RESULTS 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
--- OUTSIDE RECORDS SUMMARY | 2023-11-23 19:38 | External Medical Summary ---
Author Name Unknown Address Unknown Organization K01:[facility] - [address] [place] [address] Laboratory Report Ordering Provider Test Date Status WATSON YATES 10/16/2023 07:02:51 Final Observation Date Value Abnormality Reference (Units ) Status Ammonia 10/16/2023 07:02:51 224 Above upper panic limits 11-35 (umol/L) Final Performing Location [facility] - [address] [place] [address]
[2023-11-23] MEDS ORDERED: CARBOHYDRATES FOR HYPOGLYCEMIA PO PRN (23:06)
[2023-11-23] MEDS ORDERED: GLUCOSE 10 TAB/TUBE PO PRN (23:06)
[2023-11-23] MEDS ORDERED: GLUCOSE 40% GEL 15 GM TUBE PO PRN (23:06)
[2023-11-23] MEDS ORDERED: GLUCAGON FOR INJ 1 MG VIAL SQ PRN (23:06)
[2023-11-23] MEDS ORDERED: DEXTROSE 50% 50 ML SYRINGE IV PRN (23:06)
[2023-11-23] MEDS ORDERED: POLYETHYLENE (MIRALAX) 17 GM PACK PO PRN (23:06)
[2023-11-24] MEDS: ACETAMINOPHEN 325 MG TAB PO PRN (00:28)
[2023-11-24] MEDS: LACTULOSE SYRUP 30 GM/45 ML UDP PO SCH (00:29)
[2023-11-24] MEDS: oxyCODONE HCL IR 5 MG TAB (IMMEDIATE RELEASE) PO PRN ×2 (00:29→11:59)
[2023-11-24] MEDS: GABAPENTIN 100 MG CAP PO SCH (00:30)
[2023-11-24] MEDS: TAMSULOSIN HCL 0.4 MG CAP PO SCH (00:31)
[2023-11-24] MEDS: DOCUSATE SODIUM 100 MG CAP PO SCH (00:31)
[2023-11-24] MEDS: DIVALPROEX DELAY RELEASE 500 MG TAB PO SCH ×2 (00:31→15:29)
[2023-11-24] MEDS: PHENYTOIN SODIUM ER 100 MG CAP PO SCH (00:32)
[2023-11-24] MEDS: TOPIRAMATE 100 MG TAB PO SCH (00:33)
[2023-11-24] MEDS: INSULIN ASPART PER UNIT CHARGE SC SCH (00:39)
[2023-11-24] MEDS: LANTUS PER UNIT CHARGE SQ SCH (00:40)
[2023-11-24] MEDS ORDERED: PROMETHAZINE HCL 6.25 MG in SODIUM CHLORIDE 0.9% 50 ML IV PRN (02:28)
[2023-11-24] MEDS: oxyCODONE HCL IR 5 MG TAB (IMMEDIATE RELEASE) PO STA (02:50)
[2023-11-24] MEDS: MoRPHine SULFATE 4 MG/ML 1 ML CARP\\VIAL IV PRN (02:51)
[2023-11-24] MEDS: LIDOCAINE 5% 1 PATCH TD STA (02:59)
[2023-11-24 07:51] LABS: Hematocrit (blood only) 38.1 % (42.0-52.0); Hemoglobin 13.3 g/dl (14.0-18.0); Mean Corpuscular Hemoglobin 33.9 pg (25.0-34.0); Mean Corpuscular Hgb Conc 34.9 g/dL (32.0-36.0); Mean Corpuscular Volume 97.2 fL (80.0-100.0); Mean Platelet Volume 9.5 fL (9.4-12.4); Platelet Count 116 K/uL (130-400); RDW Coefficient of Variation 15.2 % (11.5-14.5); RDW Standard Deviation 53.9 fL (36.4-46.3); Red Blood Count 3.92 M/uL (4.70-6.10); White Blood Count 6.66 K/ul (4.8-10.8)
[2023-11-24 08:02] LABS: Estimated Average Glucose 169 mg/dl; Hemoglobin A1C 7.5 % (4.5-5.6)
[2023-11-24 08:04] LABS: BUN Creatinine Ratio 27.5 (10-20); Calcium 8.6 mg/dl (8.6-10.3); Creatinine Clr Calc Pharmacy 116.6 ml/min; Est GFR (African American) 108.7 ml/min; Est GFR (Non-African American) 93.7 ml/min; Potassium 3.9 mmol/L (3.5-5.1)
[2023-11-24 08:11] LABS: INR 1.2 (0.9-1.1); Prothrombin Time 12.7 Seconds (9.0-12.0)
[2023-11-24] MEDS: CHOLECALCIFEROL 25 MCG (1000 UNITS) TAB PO SCH (08:16)
[2023-11-24] MEDS: FUROSEMIDE 20 MG TAB PO SCH (08:16)
[2023-11-24] MEDS: MULTIVITAMIN TAB PO SCH (08:16)
[2023-11-24] MEDS: allopurinoL 300 MG TAB PO SCH (08:16)
[2023-11-24] MEDS: LORATADINE 10 MG TAB PO PRN (08:16)
[2023-11-24] MEDS: FINASTERIDE 5 MG TAB PO SCH (08:16)
[2023-11-24] MEDS: POTASSIUM CHLORIDE CRTAB 20 MEQ TABCR PO SCH (08:16)
[2023-11-24] MEDS: ATORVASTATIN 40 MG TAB PO SCH (08:16)
[2023-11-24] MEDS: CALCIUM 600MG + VIT D 400 IU TAB PO SCH (08:17)
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
--- NOTE | 2023-11-24 14:18 | Hospitalist Progress Note ---
Date of Service November 24, 2023 Assessment & Plan (1) Fall: (2) Closed T8 spinal fracture: (3) Nasal bone fracture: (4) Supratherapeutic INR: (5) Seizure disorder: (6) Current long-term use of 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 medication with history of deep venous thrombosis (DVT): (7) T2DM (type 2 diabetes mellitus): (8) HLD (hyperlipidemia): (9) Lymphedema: Plan 63yo M with a PMH of DM II, dyslipidemia, venous insufficiency, history of liver failure, BPH, DVT in 2011 on coumadin, venous insufficiency, history of generalized convulsive epilepsy, history of a solitary kidney and other medical problems listed below who presents from home after a fall. He is being managed for the following: Mechanical Fall Closed T8 spinal fracture Lumbar spine CT with oblique fracture through the anterior body of T8 which extends through the inferior endplate and likely involves the T8-T9 disc space. This fracture may be unstable. Mild prevertebral edema/hemorrhage is seen at the T8 level [facility] evaluated-mobilization with physical therapy, not an area of spine amenable to bracing. No bending/lifting or twisting, good body mechanics and posture Pain control Fall precautions PT/OT Likely need for rehab - patient has ambulatory dysfunction at baseline as well as deconditioning from previous hospitalization Nasal bone fractures No acute bleeding Continue ice, pain control OFMS evaluating, will resume anticoagulation after OFMS clearance. ? need for Sx. Supratherapeutic INR INR 4.5 - given 5mg IV Vitamin K in ED Hold coumadin --see above. Monitor INR 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 Remote history Hold coumadin for now as above Uncontrolled DM II HbA1c 10.5 in Aug , A1c better this admission Hold home agents Basal/bolus insulin per protocol while in-patient BSG AC HS Seizure disorder Continue home Depakote, Dilantin and topiramate BLE neuropathy Gabapentin dose recently changed to 100mg TID BPH On Flomax and Proscar Bladder scan PRN Chronic lymphedema Chronic Venous insufficiency No open wounds Continue home Lasix Monitor for volume overload Gout Continue allopurinol Solitary kidney As per records DVT Ppx: SCDs for now - holding coumadin as above Code status: FULL PCP: [facility] Dispo: Admitted to med/surg Admission and Anticipated Discharge Date Admission Date: November 23, 2023 Subjective Patient was seen and examined at bedside. Patient was lying in bed, on room air, resting comfortably. Patient reports back pain with movement, otherwise fairly under control at rest. Denies any bleeding through the nose, his nasal bridge is swollen. Reports eating okay and moving bowels okay. Denies any new acute event overnight. Physical Exam Physical Exam: GENERAL: Alert and oriented x3. NAD, on RA. HEENT: No pallor, no icterus. Pupils equal, round and reactive to light. Oral mucosa moist. NECK: No JVD, no neck masses. nasal bridge swelling/tenderness thoracic spine tenderness HEART: S1 and S2 heard. Regular rate and rhythm. No murmur, no gallop. RESPIRATORY SYSTEM: Normal AP diameter. No accessory muscle use. No wheezing, no crackles. ABDOMEN: Soft, bowel sounds present, nontender, no distention. CENTRAL NERVOUS SYSTEM: No facial droop. Speech is clear. Obeys simple commands. Moves extremities. EXTREMITIES: chronic lymphedema, no erythema seen. Results & Data Results & Data Vital Signs (Past 12 Hours) Vital Signs Temp Pulse Pulse Resp BP Pulse Ox O2 Del Method 11/24/23 11:55 36.5 C 86 16 120/66 96 Room Air 11/24/23 08:01 36.8 C 78 16 136/65 96 Room Air 11/24/23 07:05 76 11/24/23 03:03 36.7 C 83 20 124/73 95 Room Air
--- NOTE | 2023-11-24 22:34 | Electrocardiogram Report ---
Test Reason : Blood Pressure : / mmHG Vent. Rate : 079 BPM Atrial Rate : 079 BPM P-R Int : 174 ms QRS Dur : 092 ms QT Int : 402 ms P-R-T Axes : 033 038 047 degrees QTc Int : 460 ms Normal sinus rhythm Normal ECG When compared with ECG of 03-OCT-2023 23:28, No significant change was found Confirmed by Robert Saeed ([id number]) on 11/24/2023 10:34:03 PM Referred By: REFERRED SELF Confirmed By:Robert Saeed
[2023-11-25] MEDS: MICONAZOLE NITRATE POWDER 85 GM EXT PRN (02:09)
[2023-11-25 07:15] LABS: Hematocrit (blood only) 39.5 % (42.0-52.0); Hemoglobin 13.4 g/dl (14.0-18.0); Mean Corpuscular Hemoglobin 33.8 pg (25.0-34.0); Mean Corpuscular Hgb Conc 33.9 g/dL (32.0-36.0); Mean Corpuscular Volume 99.5 fL (80.0-100.0); Mean Platelet Volume 9.3 fL (9.4-12.4); Platelet Count 120 K/uL (130-400); RDW Coefficient of Variation 15.3 % (11.5-14.5); RDW Standard Deviation 56.3 fL (36.4-46.3); Red Blood Count 3.97 M/uL (4.70-6.10); White Blood Count 8.19 K/ul (4.8-10.8)
[2023-11-25 07:38] LABS: Prothrombin Time 10.8 Seconds (9.0-12.0)
[2023-11-25 07:46] LABS: Calcium 8.6 mg/dl (8.6-10.3); Creatinine Clr Calc Pharmacy 106.5 ml/min; Est GFR (Non-African American) 90.6 ml/min; Magnesium 1.6 mg/dl (1.7-2.4); Potassium 3.9 mmol/L (3.5-5.1)
[2023-11-25] MEDS: LIDOCAINE 5% 1 PATCH TD SCH (07:54)
[2023-11-25] MEDS: MAGNESIUM SULFATE / D5W 1 GM/100 ML BAG IV SCH (08:59)
--- NOTE | 2023-11-25 10:54 | XRay Report ---
KUB HISTORY: Acute generalized abdominal pain with distention abd distended, tender, recent spine fractu re COMPARISON: CT thoracolumbar spine studies 11/23/2023 FINDINGS: Right abdominal surgical clips. There is gaseous distention of the right hemicolon, similar to prior. No renal calculi. No ureteral calculi. No pneumoperitoneum or pneumatosis. Demineralized appearance of the bones. Limited study secondary to patient body habitus. The T8 fracture is better s een on the comparison CT.. IMPRESSION: 1. Gaseous distention of the large bowel suggestive of colonic ileus. 2. The T8 fracture is better seen on the CT exam study from 11/23/2043. ACT 112: Negative or not required by law. The above report was generated using voice recognition software. It may contain grammatical, syntax o r spelling errors. Electronically signed by: Chito Chapman M.D. 11/25/2023 10:53 AM
--- NOTE | 2023-11-25 14:33 | Hospitalist Progress Note ---
Date of Service November 25, 2023 Assessment & Plan (1) Fall: (2) Closed T8 spinal fracture: (3) Nasal bone fracture: (4) Supratherapeutic INR: (5) Seizure disorder: (6) Current long-term use of 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 medication with history of deep venous thrombosis (DVT): (7) T2DM (type 2 diabetes mellitus): (8) HLD (hyperlipidemia): (9) Lymphedema: Plan 63yo M with a PMH of DM II, dyslipidemia, venous insufficiency, history of liver failure, BPH, DVT in 2011 on coumadin, venous insufficiency, history of generalized convulsive epilepsy, history of a solitary kidney and other medical problems listed below who presents from home after a fall. He is being managed for the following: Mechanical Fall Closed T8 spinal fracture Lumbar spine CT with oblique fracture through the anterior body of T8 which extends through the inferior endplate and likely involves the T8-T9 disc space. This fracture may be unstable. Mild prevertebral edema/hemorrhage is seen at the T8 level [facility] evaluated-mobilization with physical therapy, not an area of spine amenable to bracing. No bending/lifting or twisting, good body mechanics and posture Pain control, aggressive bowel regimen. Follow closely for bowel movements. Fall precautions PT/OT Likely need for rehab - patient has ambulatory dysfunction at baseline as well as deconditioning from previous hospitalization Nasal bone fractures No acute bleeding Continue ice, pain control Discussed with [facility]MS 11/24 no indication for surgery for now, follow-up with [facility] as an outpatient. Okay to resume his anticoagulation. Supratherapeutic INR INR 4.5 - given 5mg IV Vitamin K in ED at presentation Coumadin resumed 11/24, low-dose heparin drip as bridge. PT/INR daily. 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 Remote history Anticoagulation resumed, see above. Uncontrolled DM II HbA1c 10.5 in Aug , A1c better this admission Hold home agents Basal/bolus insulin per protocol while in-patient BSG AC HS Seizure disorder Continue home Depakote, Dilantin and topiramate BLE neuropathy Gabapentin dose recently changed to 100mg TID BPH On Flomax and Proscar Bladder scan PRN Chronic lymphedema Chronic Venous insufficiency No open wounds Continue home Lasix Monitor for volume overload Gout Continue allopurinol Solitary kidney As per records DVT Ppx: SCDs for now - holding coumadin as above Code status: FULL PCP: [place] Dispo: Admitted to med/surg Admission and Anticipated Discharge Date Admission Date: November 23, 2023 Subjective Patient was seen and examined at bedside. Patient was lying in bed, on room air, resting comfortably. Patient reports back pain with movement, otherwise fairly under control at rest. Denies any bleeding through the nose, his nasal bridge is swollen. Per RN, patient is doing okay, had a small bowel movement in the morning, no problem with passing urine. Patient reports feeling constipated, will add as needed p.o. bowel regimen. Follow closely. No new acute event overnight. Physical Exam Physical Exam: GENERAL: Alert and oriented x3. NAD, on RA. HEENT: No pallor, no icterus. Pupils equal, round and reactive to light. Oral mucosa moist. NECK: No JVD, no neck masses. nasal bridge swelling/tenderness thoracic spine tenderness HEART: S1 and S2 heard. Regular rate and rhythm. No murmur, no gallop. RESPIRATORY SYSTEM: Normal AP diameter. No accessory muscle use. No wheezing, no crackles. ABDOMEN: Soft, bowel sounds present, nontender, no distention. CENTRAL NERVOUS SYSTEM: No facial droop. Speech is clear. Obeys simple commands. Moves extremities. EXTREMITIES: chronic lymphedema, no erythema seen. Results & Data Results & Data Vital Signs (Past 12 Hours) Vital Signs Temp Pulse Pulse Resp BP Pulse Ox O2 Del Method 11/25/23 11:37 36.7 C 98 H 16 149/69 H 93 Room Air 11/25/23 09:21 93 H 11/25/23 09:18 Room Air 11/25/23 07:44 36.8 C 58 L 16 108/67 96 Room Air 11/25/23 03:58 37 C 97 H 18 127/76 93 Room Air
[2023-11-25] MEDS ORDERED: Heparin IV Adult Wt-Based Low-Dose *NO* INITIAL Bolus Protocol IV SCH (14:34)
[2023-11-25] MEDS: DOCUSATE SODIUM/SENNA 50/8.6MG TAB PO SCH (14:36)
[2023-11-25] MEDS: bisacodyL 10 MG SUPP PR STA (14:36)
[2023-11-25] MEDS: HEPARIN SODIUM/DEXTROSE 25,000 UNITS/500 ML BAG IV SCH (15:01)
[2023-11-25] MEDS: WARFARIN SOD 5 MG TAB PO SCH (16:35)
[2023-11-25 23:36] LABS: ANTI-Xa, UFH(UnfractionatedHep 0.14 IU/ml (0.3-0.7)
[2023-11-25] MEDS: HEPARIN SOD (PORCINE) 1000 UNIT/ML IV ONE (23:55)
[2023-11-26 07:08] LABS: Hematocrit (blood only) 44.1 % (42.0-52.0); Hemoglobin 15.6 g/dl (14.0-18.0); Mean Corpuscular Hemoglobin 34.7 pg (25.0-34.0); Mean Corpuscular Hgb Conc 35.4 g/dL (32.0-36.0); Mean Platelet Volume 9.8 fL (9.4-12.4); Platelet Count 154 K/uL (130-400); RDW Coefficient of Variation 15.1 % (11.5-14.5); RDW Standard Deviation 54.4 fL (36.4-46.3); White Blood Count 10.41 K/ul (4.8-10.8)
[2023-11-26 07:25] LABS: BUN Creatinine Ratio 17.4 (10-20); Calcium 9.2 mg/dl (8.6-10.3); Creatinine Clr Calc Pharmacy 100.5 ml/min; Est GFR (African American) 100.8 ml/min; Magnesium 1.8 mg/dl (1.7-2.4); Phosphorus 3.1 mg/dl (2.5-4.9); Potassium 3.9 mmol/L (3.5-5.1)
[2023-11-26 07:32] LABS: ANTI-Xa, UFH(UnfractionatedHep 0.29 IU/ml (0.3-0.7); Prothrombin Time 10.7 Seconds (9.0-12.0)
[2023-11-26] MEDS: SODIUM CHLORIDE 0.9% 1,000 ML IV SCH (09:00)
[2023-11-26 09:55] LABS: Hematocrit (blood only) 52.4 % (42.0-52.0); Hemoglobin 17.5 g/dl (14.0-18.0); Mean Corpuscular Hemoglobin 33.5 pg (25.0-34.0); Mean Corpuscular Hgb Conc 33.4 g/dL (32.0-36.0); Mean Corpuscular Volume 100.4 fL (80.0-100.0); Mean Platelet Volume 9.7 fL (9.4-12.4); Platelet Count 176 K/uL (130-400); RDW Coefficient of Variation 15.4 % (11.5-14.5); RDW Standard Deviation 57.2 fL (36.4-46.3); Red Blood Count 5.22 M/uL (4.70-6.10); White Blood Count 9.64 K/ul (4.8-10.8)
--- NOTE | 2023-11-26 10:01 | XRay Report ---
XR chest 1V portable HISTORY: Fever. COMPARISON: Chest 11/23/2023. FINDINGS: There are low lung volumes. Mild elevation of the right hemidiaphragm, unchanged. The cardi ac silhouette remains enlarged. There is mild central pulmonary vascular congestion without overt maddy ma. This is similar to the prior study. Bibasilar linear densities have progressed. This could repres ent atelectasis or a pneumonia. IMPRESSION: 1. Cardiomegaly and mild congestive change. This is similar to the prior study. 2. Bibasilar linear densities have progressed. This may represent atelectasis or pneumonia. This will be better assessed on the same day abdomen and pelvis CT. ACT 112: Negative or not required by law. Electronically signed by: Maynor Augustin M.D. 11/26/2023 9:59 AM
[2023-11-26 10:10] LABS: Base Excess ABG -3.8 mEq/L (-9-1.8); HCO3 ABG 19 mmol/L (19-24); PCO2 ABG 28 mmHg (35-46); PO2 ABG 55 mmHg (80-95); pH ABG 7.44 (7.35-7.45)
[2023-11-26 10:12] LABS: Allen Test Pos (Pos)
[2023-11-26 10:13] LABS: Oxygen Saturation ABG 89.2 % (90-95)
--- NOTE | 2023-11-26 10:14 | Communication Note ---
Date of Service: November 26, 2023 63yo M with a PMH of DM II, dyslipidemia, venous insufficiency, history of liver failure, BPH, DVT in 2012 on coumadin, venous insufficiency, history of ge neralized convulsive epilepsy, history of a solitary kidney who presented from home after a fall. I was paged by RN in the morning about him vomiting x 1 x yellow. I went in to see the patient, patient vomited again, he seemed altered, he could not give us any history, he denied pain but did mention chest pain couple of times - not able to further comment on this, he was moving his both upper arms and lower extremities during bedside exam. He did follow some simple commands for exam. He was dozing off/not able to answer most of questions. He would wake up w/ asking questions. I held his heparin drip and warfarin. Sent CT scan of the head. Anticoagulation plan to be held until CT of the head comes back. For his chest pain, send stat troponin, stat EKG -concern for ST elevation in anterior leads/patient was shaking and had tachycardia. Trop drawn was neg. Will need to repeat EKG. Echo sent. Discussed with cardiology who evaluated the patient at the bedside. Since patient is unstable, he needs to be stabilized first and then further evaluation per cardiology. I did send repeat CBC, procalcitonin, prolactin [history of seizure], ABG. Imagings including CT of the head, CXR, CTAP were sent. CXR was viewed on the portable machine's screen, per my review there was no pneumothorax. Vitals during the process, patient was tachycardic in 140s, blood pressure with SBP in 130s, patient on 15 L nonrebreather, saturating 86% Due to vomiting and altered mentation and hypoxia, possible need for intubation and called/discussed with field service technician. Started him on Zosyn, patient is taken down to ICU for further management. He was started on IV fluid and given a dose of as needed morphine after which patient seem to have settled down with regards to his acute distress. Patient's sister CEDRICK BOYD who is primary contact listed in the EMR was contacted and updated regarding patient's condition including possibility of increased ammonia level/seizure/acute coronary syndrome and since patient is vomiting/hypoxic/altered, patient is going to be intubated/ventilated. She voiced understanding, answered all her question, she stated she will communicate with the other sister. She stated that the patient is not and does not have any other children. The patient does not have medical POA but she and her sister are the closest kins according to Cedrick. I also met them again later outside the room and updated/anwered their questions. Total critical care time spent: 50 minutes.
[2023-11-26] MEDS ORDERED: STAT IV Infusion **Titration per Protocol STA ×2 (10:49→12:11)
--- NOTE | 2023-11-26 10:55 | Procedure Note ---
Procedure Note Date of Service November 26, 2023 Note INTUBATION PROCEDURE NOTE: Attending: MD Filiberto Francisco PA-C Patient was evaluated and plan to intubate was made for respiratory failure. Local anesthetic: 2% lidocaine was sprayed into pharynx Sedative agent used: Ketamine 200 mg, etomidate 10 mg followed by another 10 mg after the tube was placed, 100 mg of lidocaine Paralysis agent used: 50 mg of rocuronium was given after tube was through the vocal cords Emergent consent was implied given patients rapidly declining clinical status and need for airway protection. The patient was prepared in the appropriate fashion. The patient was easily pre-oxygenated by using [id number] ventilation. With help of flexible bronchoscope 7.5 [place] ETT was introduced via Seldinger technique on the bronchoscope with 23 cm at the lip. [place] scope was needed to depress the tongue. The stylette was removed and balloon was inflated with 10mL of air. Appropriate Colorimetric change was appreciated for at least 10 breaths. Bilateral chest rise and breath sounds were appreciated without air sounds in the epigastrium. Patient tolerated the procedure well and there were no immediate complications. Chest Xray to follow for confirming placement. Coding CPT Codes Resuscitation - Resuscitation: 69715 Endotracheal Intubation, emergency ([id number]) [facility] [place] Procedure Codes (Charges) Resuscitation Resuscitation: 22209 Endotracheal Intubation, emergency
--- NOTE | 2023-11-26 11:00 | XRay Report ---
XR chest 1V portable CLINICAL HISTORY: s/p oral intubation COMPARISON STUDY: Chest radiograph performed earlier today. FINDINGS: The tip of the endotracheal tube is 3.5 cm above the mattie. Low lung volumes are unchanged . Bibasilar opacities persist. Cardiomediastinal silhouette is stable. Pulmonary vascular congestion is again noted. Tip of nasogastric tube is below the lower aspect of this image but at least within t he body of the stomach. No pneumothorax or pleural effusion is present. IMPRESSION: 1. Tip of endotracheal tube 3.5 cm above the mattie. 2. No change in low lung volumes with bibasilar basilar opacities which could reflect atelectasis or pneumonia. 3. Cardiomegaly with pulmonary vascular congestion, unchanged. ACT 112: Negative or not required by law. Electronically signed by: Omari Foreman M.D. 11/26/2023 10:58 AM
--- NOTE | 2023-11-26 11:03 | Procedure Note ---
Procedure Note: Bronchoscopy Procedure PREOPERATIVE DIAGNOSIS: Aspiration with hypoxia POSTOPERATIVE DIAGNOSIS: Aspiration with hypoxia PROCEDURE PERFORMED: Flexible fiberoptic bronchoscopy with bronchial lavage COMPLICATIONS: None. INDICATION: Clear airways PROCEDURE: The patient had appropriate oxygen, blood pressure, heart rate, and respiratory rate monitoring applied and monitored continuously throughout the procedure. Supplemental oxygen via nasal cannula as per nursing records was applied to the nasopharynx with adequate saturations achieved. Patient was in the ICU already intubated and paralyzed. Bronchoscope was introduced through the ETT. The position of ET tube was adequate approximately 2 cm above the mattie The trachea appeared normal. There were secretions appreciated around the ETT within the trachea.The bronchoscope was then advanced through the mattie, which was sharp. The scope was then advanced into the right main stem and each segment, subsegement in the right upper lobe, right middle lobe and right lower lobe were visualized. There was minimal amount of clear secretion which was suctioned out. There were no other findings including evidence of mass, anatomic distortions, or hemorrhage. The bronchoscope was subsequently withdrawn and advanced into the left mainstem. There was not hemorrhagic spot which is not actively bleeding right at the uptake of right main from the mattie medially. Again, each segment and subsegment was well visualized. No specific masses or other lesions were identified throughout the tracheobronchial tree on the left. There was minimal amount of brownish secretion in the right main which was suctioned out. The bronchoscope was then wedged in the left upper lobe and bronchoalveolar lavage samples were obtained. 60 ml of saline was instilled and 30 ml of fluid was aspirated back.The bronchoscope was withdrawn and the area was suctioned clear. The bronchoscope was then withdrawn to the mainstem. The area was suctioned clear. The bronchoscope was then withdrawn. The patient tolerated the procedure well without evidence of desaturation or complications. Bronchoalveolar lavage samples were sent for cell count, Gram stain and bacterial culture, AFB culture and smear, fungal culture and smear and cytology. Recommendations: Follow-up micro, cytology and pathology Follow-up chest x-ray Please note the above document was generated using voice recognition software. It may contain grammatical, syntax or spelling errors.Any formal questions or concerns about the content, text or information contained within the body of this dictation should be directly addressed to the provider for clarification. [facility] [place] Procedure Codes (Charges) Pulmonary/Thoracic Procedure 1: Pulmonary and Thoracic: 38743 Bronchoscopy, clear airways
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
[2023-11-26] MEDS: ACETAMINOPHEN 1,000 MG/100 ML VIAL IV PRN (11:35)
[2023-11-26] MEDS: PIPER/TAZO 4.5g in D5W MINI-B 100 ML IV ONE (11:36)
[2023-11-26] MEDS: PROPOFOL IV EMULSION 10 MG/ML 100 ML VIAL IV ONE (11:39)
[2023-11-26] MEDS: LIDOCAINE 1% LOCAL 20 ML VIAL ONE (11:40)
[2023-11-26] MEDS: fentaNYL citrate 2,500 MCG/250 ML BAG IV ONE (11:40)
[2023-11-26] MEDS: LIDOCAINE 1% LOCAL 20 ML VIAL INFIL ONE (11:41)
[2023-11-26] MEDS: RAPID SEQUENCE INDUCTION BAG ONE (11:41)
[2023-11-26 12:07] LABS: Albumin Level 2.9 gm/dl (3.4-5.0); Bilirubin,Total 0.7 mg/dl (0.2-1.0); Calcium 7.2 mg/dl (8.6-10.3); Potassium 3.4 mmol/L (3.5-5.1)
[2023-11-26 12:13] LABS: Albumin Globulin Ratio 1.2 (0.9-2); BUN Creatinine Ratio 17.4 (10-20); Creatinine Clr Calc Pharmacy 100.5 ml/min; Est GFR (African American) 100.8 ml/min; Globulin 2.4 gm/dl (2.5-4.0); Total Protein 5.3 gm/dl (6.0-8.3)
[2023-11-26 12:13] LABS: iSTAT Art Bld Gas pCO2 Correct 39 mmHg (35-46); iSTAT Arterial Blood Gas HCO3 18 meg/L (19-24); iSTAT Arterial Blood Gas pCO2 34 mmHg (35-46); iSTAT Arterial Blood Gas pH 7.34 (7.35-7.45); iSTAT Arterial Blood Gas pO2 84 mmHg (80-95); iSTAT Arterial Blood Gas pO2 C 103; iSTAT Carbon Dioxide 19 mmol/L (24-31); iSTAT Hematocrit 42 % (42-52); iSTAT Hemoglobin 14.3 g/dl (14.0-18.0); iSTAT Potassium 3.7 mmol/L (3.3-5.0); iSTAT Site Art Line; iSTAT Sodium 137 mmol/L (135-144)
--- NOTE | 2023-11-26 12:17 | Procedure Note ---
Procedure Note Date of Service November 26, 2023 Note Procedure: Arterial Line Placement Attending: Dr. Jansen APC: Filiberto Encarnacion PA-C Indication: Hemodynamic monitoring Anesthesia: Lidocaine 1% Emergent Consent implied in the setting of clinical deterioration and need for close hemodynamic monitoring, ABG monitoring, frequent lab draws, etc. A time-out was completed verifying correct patient, procedure, site, positioning, and implant(s) or special equipment if applicable. Allens test was performed to ensure adequate perfusion. Patients RIGHT wrist was prepped and draped in the usual sterile fashion. Ultrasound guidance was used to aid needle placement. A 20g Arrow arterial line was introduced into the RIGHT radial artery. Catheter was threaded, and the needle was removed with appropriate blood return. Good waveform was observed. The patient tolerated the procedure well. Confirmation of placement with ultrasound. Blood Loss: Minimal Complications: None Procedural Ultrasound Guidance: Procedure Date: 11/26/2023 Indication: Hemodynamic Monitoring, Frequent ABGs/Lab draws. Attending: Dr. Jansen APC: Filiberto Encarnacion PA-C Artery Identified: YES Line confirmed in Artery with ultrasound: YES Complications: NONE Patient tolerated procedure: WELL Coding CPT Codes Tubes, Drains, and Vasc Access - Tubes, Drains, and Vasc Access: [id number] Arterial Cath/Cannulation Sampling/Monitoring/Transfusion ([id number]) [facility] – [place] Procedure Codes (Charges) Tubes, Drains, and Vasc Access Procedure 1: Tubes, Drains, and Vasc Access: [id number] Arterial Cath/Cannulation Sampling/Monitoring/Transfusion
--- NOTE | 2023-11-26 12:17 | Procedure Note ---
Procedure Note Date of Service November 26, 2023 Note Procedure: Femoral Central Line Placement Attending: Dr. Jansen APC: Filiberto Encarnacion PA-C Indication: Central Drug Administration, Poor Venous Access, Multiple Lab Draws Necessary, etc. Anesthesia: Lidocaine 1% Emergent consent implied in the setting of active deterioration without peripheral access, need for multiple medications, central access, lab draws, etc. Unable to perform IJ procedure secondary to the patient's severe kyphosis. A time-out was completed verifying correct patient, procedure, site, positioning, and implants(s) or special equipment if applicable. Patients RIGHT Groin was cleansed and draped in the typical sterile fashion using Chloraprep. The Femoral Vein and Femoral Artery were identified using ultrasound. The superficial tissue was anesthetized using 5.0 mL of 1% lidocaine without epinephrine under direct visualization with the ultrasound. After adequate anesthetization was achieved, the Femoral Vein was cannulated under direct ultrasound guidance using an introducer needle on a syringe. Good venous blood return was maintained prior to removal of syringe from introducer needle. Using Seldinger Technique, a guide wire was advanced through the introducer needle without resistance. The introducer needle was removed and ultrasound images were obtained of the guide wire within the Femoral Vein and saved to the patients medical record. A small incision was made in penetrating fashion at the guide wire insertion site utilizing an 11 blade scalpel. The dilator was advanced to the vessel without resistance. The dilator was exchanged for the triple lumen catheter which was advanced into the vessel without resistance. The guide wire was removed intact from the catheter without issue. Claves were placed on each catheter tip with confirmation of good blood flow from each lumen. Each port was easily flushed with sterile saline. The catheter was placed at the hub and sutured in place. BioPatch was applied to the catheter and a sterile Tegaderm dressing was applied over the catheter with careful attention to sterility. Patient tolerated procedure well. No immediate complications were met. Images obtained are saved for permanent record Procedural Ultrasound Guidance: Procedure Date: 11/26/2023 Indication: No peripheral access, frequent blood draws, pressors. Attending: Dr. Jansen APC: Filiberto Encarnacion PA-C Artery AND Vein visualized: YES Compressible Vein: YES Guidewire or Short Catheter seen in vein prior to dilation: YES Line confirmed in Vein with ultrasound: YES Images obtained are saved for permanent record. Coding CPT Codes Tubes, Drains, and Vasc Access - Tubes, Drains, and Vasc Access: [id number] Insertion Of Non-tunneled Catheter Age 5 Yrs> ([id number]) Tubes, Drains, and Vasc Access - Tubes, Drains, and Vasc Access: [id number] Ultrasound Guidance For Vascular ([id number]) [facility] [place] Codes (Charges) Tubes, Drains, and Vasc Access Procedure 1: Tubes, Drains, and Vasc Access: [id number] Insertion Of Non-tunneled Catheter Age 3 Yrs> Procedure 2: Tubes, Drains, and Vasc Access: [id number] Ultrasound Guidance For Vascular
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
[2023-11-26] MEDS: OPTIRAY 320 100ml IV ONE (12:40)
--- NOTE | 2023-11-26 13:01 | Hospitalist Progress Note ---
Date of Service November 26, 2023 Assessment & Plan (1) Fall: (2) Closed T8 spinal fracture: (3) Nasal bone fracture: (4) Supratherapeutic INR: (5) Seizure disorder: (6) Current long-term use of 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 medication with history of deep venous thrombosis (DVT): (7) T2DM (type 2 diabetes mellitus): (8) HLD (hyperlipidemia): (9) Lymphedema: Plan 63yo M with a PMH of DM II, dyslipidemia, venous insufficiency, history of liver failure, BPH, DVT in 2011 on coumadin, venous insufficiency, history of generalized convulsive epilepsy, history of a solitary kidney and other medical problems listed below who presents from home after a fall. He is being managed for the following: Likely metabolic vs Hepatic encephalopathy: NH3 elevated iso sbo Small bowel obstruction Fever: ? Pulmonary origin, MRSA screen neg. Severe sepsis with shock: Likely secondary to pneumonia, currently needing pressor support Patient had a code purple 11/25 AM, was hypoxic/altered/vomiting --> intubated 11/25 and transferred to ICU. CT head with no acute finding. CT abdomen pelvis with findings suggestive of SBO and lower lung consolidation suggestive of pneumonia or aspiration pneumonitis. CT chest suggestive of extensive bilateral lower lobe consolidation, pneumonia versus aspiration pneumonitis. Patient is intubated, being managed in ICU. Currently needing pressor support and is febrile General surgery on board, appreciate recommendation. NG tube for decompression. Urinalysis, urine culture sent. Patient started on Zosyn 11/25. IVF and PPI. Lactulose. Abnormal EKG/? Chest pain: Rule out ACS, discussed with cardiology 11/25, echo without regional wall motion abnormality. Continue telemetry monitoring, will follow cardiology recs. Mechanical Fall Closed T8 spinal fracture Lumbar spine CT with oblique fracture through the anterior body of T8 which extends through the inferior endplate and likely involves the T8-T9 disc space. This fracture may be unstable. Mild prevertebral edema/hemorrhage is seen at the T8 level [facility] evaluated-mobilization with physical therapy, not an area of spine amenable to bracing. No bending/lifting or twisting, good body mechanics and posture Pain control, aggressive bowel regimen. Follow closely for bowel movements. Fall precautions PT/OT Likely need for rehab - patient has ambulatory dysfunction at baseline as well as deconditioning from previous hospitalization Nasal bone fractures No acute bleeding Continue ice, pain control Discussed with [facility] 11/24 no indication for surgery for now, follow-up with [facility] as an outpatient. Okay to resume his anticoagulation. Supratherapeutic INR : resolved. 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 : Remote history . anticoagulation Uncontrolled DM II HbA1c 10.5 in Aug , A1c better this admission Hold home agents Basal/bolus insulin per protocol while in-patient BSG AC HS Seizure disorder Continue home Depakote, Dilantin and topiramate BLE neuropathy Gabapentin dose recently changed to 100mg TID BPH On Flomax and Proscar Bladder scan PRN Chronic lymphedema Chronic Venous insufficiency No open wounds Continue home Lasix Monitor for volume overload Gout Continue allopurinol Solitary kidney As per records DVT Ppx: SCDs for now - anticoag on hold at time of transfer to icu until bleed ruled out. Code status: FULL PCP: Cruz Dispo: Admitted to med/surg Admission and Anticipated Discharge Date Admission Date: November 23, 2023 Subjective Patient was seen and examined at bedside. I went into the room to see the patient after I was paged by RN that he vomited. Detailed discussion on today's communication note. Patient was finally sent to ICU. Physical Exam Physical Exam: GENERAL: altered, vomiting, acutely ill, needed upto 15 L O2 via NR mask HEENT: No pallor, no icterus. Pupils equal, round and reactive to light. Oral mucosa moist. NECK: No JVD, no neck masses. nasal bridge swelling/tenderness thoracic spine tenderness HEART: S1 and S2 heard. Regular rate and rhythm. No murmur, no gallop. RESPIRATORY SYSTEM: Normal AP diameter. No accessory muscle use. No wheezing, no crackles. ABDOMEN: Soft, bowel sounds present, nontender, no distention. CENTRAL NERVOUS SYSTEM: No facial droop. Obeys simple commands. Moves extremities. EXTREMITIES: chronic lymphedema, no erythema seen. Results & Data Results & Data Vital Signs (Past 12 Hours) Vital Signs Temp Pulse Resp BP Pulse Ox O2 Del Method O2 Flow Rate 11/26/23 09:30 154 H 156/82 H 86 L Non-rebreather 15 11/26/23 09:00 36.5 C 144 H 18 138/75 80 L High Flow Nasal Cannula 8 11/26/23 08:34 Nasal Cannula 11/26/23 07:46 37.6 C H 102 H 18 151/81 H 90 Nasal Cannula 2 11/26/23 03:54 37.3 C 102 H 20 156/83 H 93 Room Air 11/26/23 02:03 Room Air
[2023-11-26] MEDS: POTASSIUM CHLORIDE / WTR 20 MEQ/100 ML PLCT IV SCH (13:02)
[2023-11-26] MEDS: VASOPRESSIN 20 UNITS in 0.9 % SODIUM CHLORIDE 100 ML IV SCH (13:03)
--- NOTE | 2023-11-26 13:06 | CT Scan Report ---
CT OF THE ABDOMEN AND PELVIS WITH CONTRAST CLINICAL HISTORY: r/o SBO COMPARISON STUDY: CT of the abdomen and pelvis June 28, 2021. KUB November 25, 2023. TECHNIQUE: Following IV administration of 93 mL of Optiray, axial images of the abdomen and pelvis we re obtained from the lung bases to the proximal femurs. Images were reviewed in the axial, sagittal, and coronal planes. IV contrast was administered without complication. Automated exposure control wa s utilized for the study. A dose lowering technique was utilized adhering to the principles of ALARA . CT DOSE: 2366.27 mGy.cm FINDINGS: Extensive bilateral lower lung consolidation with multifocal airspace opacities are better depicted on the chest CT which will be reported separately. The stomach is moderately distended. Tip of nasogastric tube is within the gastric body. No pneumatosis, free air or portal venous gas is pres ent. Liver, spleen, adrenal glands and pancreas are unremarkable. Water attenuation left renal lesion represents a cyst. There is no abnormality within the right nephrectomy bed. Edwards balloon within th e collapsed bladder is present. A small amount of ascites within the right paracolic gutter and pelvi s is present. There is no fluid collection. The proximal to mid small bowel is moderately dilated and fluid-filled. Probable transition point within the ileum on axial image 317 of 473 is present. The d istal small bowel is decompressed. Associated mesenteric stranding. No bowel wall thickening. An obli que acute T8 vertebral body fracture is unchanged since the thoracic spine CT of November 23, 2023. IMPRESSION: 1. Findings consistent with a small bowel obstruction, as described above. Small amount of ascites an d mesenteric stranding. No bowel wall thickening. No pneumatosis, free air or portal venous gas. 2. Extensive lower lung consolidation and airspace opacities suggestive of pneumonia or aspiration pn eumonitis. 3. Moderately distended stomach. Tip of nasogastric tube within the gastric body. 4. No change in appearance of an acute oblique T8 vertebral body fracture. ACT 112: Negative or not required by law. Electronically signed by: Omari Foreman M.D. 11/26/2023 1:04 PM
[2023-11-26] MEDS ORDERED: PHARMACY GLYCEMIC MGMT CONSULT PRN (13:07)
[2023-11-26 13:08] LABS: Magnesium 1.3 mg/dl (1.7-2.4)
[2023-11-26] MEDS: fentaNYL citrate 2,500 MCG/250 ML BAG IV SCH (13:10)
[2023-11-26] MEDS: LIDOCAINE 4% INH SOLN 4 ML BTL ONE (13:11)
[2023-11-26] MEDS: propofoL 1,000 MG/100 ML VIAL IV SCH (13:12)
[2023-11-26] MEDS: NOREPINEPHRINE/D5W 4 MG/250 ML PLCT IV SCH (13:13)
[2023-11-26] MEDS: NOREPINEPHRINE/D5W 4 MG/250 ML IV ONE (13:13)
[2023-11-26 13:14] LABS: Phosphorus 2.8 mg/dl (2.5-4.9)
--- NOTE | 2023-11-26 13:14 | CT Scan Report ---
CT head/brain wo con CLINICAL HISTORY: 63 years-old Male with altered mentation. Acutely altered mental status TECHNIQUE: Multiple axial CT images of the head were obtained without contrast. A dose lowering tech nique was utilized adhering to the principles of ALARA. CT DOSE: 836.67 mGy.cm COMPARISON: 11/23/2023, 04/10/2012. FINDINGS: No acute intracranial hemorrhage, midline shift, intracranial mass, hydrocephalus, territorial ischem ia or abnormal extra-axial collection. Limited exam secondary to motion degradation in positioning. A dditional changes with white matter hypodensities redemonstrated suggestive of chronic microvascular ischemic disease. Cerebrovascular calcifications. The calvarium is intact. There is a mixed lucent and sclerotic expansile 1.2 cm lesion involving the right frontal calvarium on image 14 series 5 which is unchanged dating back to 2011 compatible with b enign etiology. Small mastoid effusions with left middle ear effusion. IMPRESSION: No acute intracranial abnormality identified. ACT 112: Negative or not required by law. The above report was generated using voice recognition software. It may contain grammatical, syntax o r spelling errors. Electronically signed by: Chito Chapman M.D. 11/26/2023 1:12 PM
--- NOTE | 2023-11-26 13:16 | Electrocardiogram Report ---
Test Reason : Blood Pressure : / mmHG Vent. Rate : 147 BPM Atrial Rate : 150 BPM P-R Int : 178 ms QRS Dur : 100 ms QT Int : 252 ms P-R-T Axes : 055 058 -84 degrees QTc Int : 394 ms Poor data quality, interpretation may be adversely affected Sinus tachycardia Possible Left atrial enlargement Nonspecific ST and T wave abnormality Abnormal ECG When compared with ECG of 23-NOV-2023 15:11, Significant changes have occurred Confirmed by Jimmy Bradshaw ([id number]) on 11/26/2023 1:16:36 PM Referred By: REFERRED SELF Confirmed By:Jimmy Bradshaw
--- NOTE | 2023-11-26 13:20 | Electrocardiogram Report ---
Test Reason : Blood Pressure : / mmHG Vent. Rate : 130 BPM Atrial Rate : 130 BPM P-R Int : 148 ms QRS Dur : 092 ms QT Int : 294 ms P-R-T Axes : 051 077 -45 degrees QTc Int : 432 ms Sinus tachycardia Abnormal ECG When compared with ECG of 26-NOV-2023 09:32, (unconfirmed) Aberrant conduction is no longer Present ST now depressed in Anterior leads Inverted T waves have replaced nonspecific T wave abnormality in Inferior leads Confirmed by Jimmy Bradshaw ([id number]) on 11/26/2023 1:20:20 PM Referred By: REFERRED SELF Confirmed By:Jimmy Bradshaw
--- NOTE | 2023-11-26 13:23 | Pharmacy Report ---
Pharmacy Glycemic Short Note 2 - Date of Service November 26, 2023 - Glycemic Short BSG Results (Last 24 hours): 11/25/23 11/25/23 11/26/23 17:17 20:10 06:37 Glucose 222 H POC Glucose 191 H 134 H POC Glucose (other) 11/26/23 11/26/23 11/26/23 08:17 11:27 11:50 Glucose 253 H POC Glucose 219 H POC Glucose (other) 266 H OUTPATIENT ANTIDIABETIC REGIMEN: * Glipizide 10 mg PO BIDM * Tradjenta 5 mg PO daily * HbA1c: 7.5% (11/24/23) ASSESSMENT: * 63 yo M admitted on 11/23/23 secondary to a fall. Patient aspirated on the morning of 11/26/23 and required intubation and transfer to the ICU. Pharmacy has been consulted to assist with inpatient glycemic management. Patient is a Type 2 diabetic as an outpatient. Please refer to outpatient regimen and most recent HbA1c above. * Eliseo was receiving 40 units of basal per day since admission with Novolog based on weight/stress of ~2 with adequate glycemic control. * Stressors have now changed significantly as patient is intubated and sedated. Ordered norepinephrine, vasopressin, fentanyl, propofol and heparin drips. Zosyn added for aspiration coverage. nt potassium was 3.7 mg/dL and is being replaced IV. * No insulin received yet today. Will d/c basal + bolus and start patient on insulin drip based on high stress and most recent BSG of 266 mg/dL. This will provide a 4 unit bolus followed by drip at a rate of 3.8 units/hr. Goal range is 110-180 mg/dL. Most rece * Will not transition patient off drip until clinical status improved and patient ready to be extubated. Will consider adding basal insulin tomorrow if patient improving. PLAN FOR INPATIENT GLYCEMIC CONTROL: * Hold outpatient oral diabetes medications * Insulin drip per calculator * 4 units IV bolus * 3.8 units/hr thereafter * Basal insulin * None for now * Last dose was 20 units Lantus on 11/24 at 2046 * Bolus insulin - no bolus while intubated * * * *
[2023-11-26] MEDS: INSULIN REGULAR 250 UNITS in SODIUM CHLORIDE 0.9% 247.5 ML IV SCH (13:24)
--- NOTE | 2023-11-26 13:25 | CT Scan Report ---
CT OF THE CHEST WITHOUT IV CONTRAST CLINICAL HISTORY: r/o PNA COMPARISON STUDY: Chest CT October 15, 2020. Chest radiograph performed earlier today. TECHNIQUE: Axial images of the chest were obtained without IV contrast. Images were reviewed in the axial, sagittal, and coronal planes. IV contrast was not administered for this examination. Automat ed exposure control was utilized for the study. A dose lowering technique was utilized adhering to t he principles of ALARA. FINDINGS: Tip of the endotracheal tube is 2.3 cm above the mattie. Tip of nasogastric tube is within the body of the stomach. There is mild cardiomegaly and moderate coronary artery calcification. Ther e is no pericardial effusion. No enlarged axillary, mediastinal or hilar lymph nodes are present. Bala tral airways are patent. There is no pneumothorax or pleural effusion. Extensive bilateral lower lobe consolidation is present. Additional multifocal airspace opacities within the right lung are present . There is no cavitation. Lungs are suboptimally assessed due to respiratory motion. An acute oblique T8 vertebral body fracture similar in appearance to the thoracic spine CT of November 23, 2023. There i s mild paravertebral stranding. Old right-sided rib fractures are incidentally noted. IMPRESSION: 1. Extensive bilateral lower lobe consolidation with additional right lung airspace opacities. The fi ndings suggest pneumonia or aspiration pneumonitis. 2. Well-positioned endotracheal and nasogastric tubes. 3. No change in appearance of an acute oblique T8 vertebral body fracture since CT of November 23, 2023. 4. No pneumothorax. ACT 112: Negative or not required by law. Electronically signed by: Omari Foreman M.D. 11/26/2023 1:23 PM
[2023-11-26] MEDS: NovoLIN-R BOLUS FROM BAG IV ONE (13:36)
[2023-11-26] MEDS: PIPERACILLIN/TAZOBACTAM 4.5 GM in DEXTROSE 5% MINI-B 100 ML IV SCH (13:38)
[2023-11-26] MEDS: MAGNESIUM SULFATE / D5W 1 GM/100 ML BAG IV SCH (13:43)
[2023-11-26] MEDS: POLYETHYLENE (MIRALAX) 17 GM PACK PO SCH (13:50)
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
[2023-11-26 14:13] LABS: Appearance Urine Clear (Clear); Bacteria Urine Automated None Seen (None Seen); Bilirubin Urine 1+ (Negative); Blood Urine Negative (Negative); Color Urine Dark Yellow; Epithelial Cell Urine Auto 0-2 /hpf (0-2); Glucose Urine UA Trace (Negative); Ketones Urine Trace (Negative); Leukocyte Esterase Urine 1+ (Negative); Nitrite Urine Negative (Negative); Protein Urine 1+ (Negative); RBC Urine Automated 0-2 /hpf (0-2); Specific Gravity Urine 1.026 (1.000-1.030); Urobilinogen Urine Negative (Negative); WBC Urine Automated 21-50 /hpf (0-5); pH Urine 5.5 (4.5-7.5)
[2023-11-26 14:33] LABS: ANTI-Xa, UFH(UnfractionatedHep < 0.10 IU/ml (0.3-0.7)
--- NOTE | 2023-11-26 14:39 | Billing Data ---
Date of Service November 26, 2023 Coding Level of Care Code 60536 CRITICAL CARE 1ST 30-74M Time Spent (min) 68
--- NOTE | 2023-11-26 15:25 | Ultrasound Report ---
BILATERAL LOWER EXTREMITY VENOUS DOPPLER CLINICAL HISTORY: 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. COMPARISON STUDY: Bilateral lower extremity venous Doppler ultrasound April 05, 2022. TECHNIQUE: Sonography of the deep venous system of the bilateral lower extremities was performed. Co mpression and augmentation were evaluated. FINDINGS: Right femoral venous catheter is incidentally noted. There is no deep venous thrombus withi n the right lower extremity. Stranding within the left superficial femoral and popliteal veins is pre sent. This favors chronic deep venous thrombus. Calf vessels were patent. There is lower extremity ed bev. IMPRESSION: Stranding within the left superficial femoral and popliteal veins. This favors chronic de ep venous thrombus. No convincing evidence for acute deep venous thrombus within the lower extremitie s. ACT 112: Negative or not required by law. Electronically signed by: Omari Foreman M.D. 11/26/2023 3:24 PM
[2023-11-26 16:11] LABS: Basophil Body Fluid Man 0 %; Eosinophil Body Fluid Man 0 %; Fluid Mono/Macrophage 3 %
[2023-11-26] MEDS: INSULIN ASPART PER UNIT CHARGE SC SCH (16:20)
[2023-11-26] MEDS ORDERED: LIDOCAINE 2% 20 MG/ML 5 ML SYR IV ONE (16:32)
[2023-11-26] MEDS ORDERED: ROCURONIUM BROMIDE 10 MG/ML 5 ML VIAL IV ONE (16:32)
[2023-11-26] MEDS ORDERED: ETOMIDATE 2 MG/ML 20 ML VIAL IV ONE (16:32)
[2023-11-26] MEDS ORDERED: KETAMINE HCL INJ 50 MG/ML 10 ML VIAL IV ONE (16:32)
[2023-11-26] MEDS ORDERED: MIDAZOLAM HCL 5 MG/ML 2ML VIAL IV ONE (16:32)
[2023-11-26] MEDS ORDERED: Nursing to Pharmacy Communication SCH ×2 (17:45→22:45)
[2023-11-26] MEDS: VALPROATE SOD 500 MG in DEXTROSE 5% 50 ML IV SCH (18:00)
[2023-11-26] MEDS: PROPOFOL BOLUS FROM BAG IV PRN (19:48)
[2023-11-26] MEDS: SODIUM CHLORIDE IV SCH (21:46)
[2023-11-26] MEDS: FOSPHENYTOIN IV SCH (21:46)
[2023-11-26 22:07] LABS: Lymphocyte Body Fluid Man 9 %; Neutrophil Body Fluid Man 88 %
[2023-11-26] MEDS: PLASMA-LYTE A 1,000 ML IV ONE (22:28)
[2023-11-27 04:44] LABS: iSTAT Art Bld Gas pCO2 Correct 34 mmHg (35-46); iSTAT Art Bld Gas pH Corrected 7.314 (7.35-7.45); iSTAT Arterial Blood Gas HCO3 17 meg/L (19-24); iSTAT Arterial Blood Gas pCO2 32 mmHg (35-46); iSTAT Arterial Blood Gas pH 7.34 (7.35-7.45); iSTAT Arterial Blood Gas pO2 69 mmHg (80-95); iSTAT Arterial Blood Gas pO2 C 76; iSTAT Carbon Dioxide 18 mmol/L (24-31); iSTAT FiO2 40 %; iSTAT Hematocrit 39 % (42-52); iSTAT Hemoglobin 13.3 g/dl (14.0-18.0); iSTAT Potassium 3.9 mmol/L (3.3-5.0); iSTAT Site Art Line; iSTAT Sodium 137 mmol/L (135-144)
[2023-11-27 04:52] LABS: Hematocrit (blood only) 39.7 % (42.0-52.0); Hemoglobin 13.6 g/dl (14.0-18.0); Mean Corpuscular Hemoglobin 33.9 pg (25.0-34.0); Mean Corpuscular Hgb Conc 34.3 g/dL (32.0-36.0); Mean Platelet Volume 9.7 fL (9.4-12.4); Nucleated RBC # (auto) 0.02 K/uL (0.00-0.12); Nucleated RBC % (auto) 0.1 %; Platelet Count 157 K/uL (130-400); RDW Coefficient of Variation 15.4 % (11.5-14.5); Red Blood Count 4.01 M/uL (4.70-6.10); White Blood Count 13.36 K/ul (4.8-10.8)
[2023-11-27 05:15] LABS: BUN Creatinine Ratio 21.2 (10-20); Calcium 7.8 mg/dl (8.6-10.3); Creatinine Clr Calc Pharmacy 88.1 ml/min; Est GFR (African American) 78.6 ml/min; Est GFR (Non-African American) 67.8 ml/min; Magnesium 2.1 mg/dl (1.7-2.4); Phosphorus 2.8 mg/dl (2.5-4.9); Potassium 3.9 mmol/L (3.5-5.1)
[2023-11-27] MEDS: fentaNYL BOLUS from BAG IV PRN (05:17)
[2023-11-27 05:20] LABS: INR 1.1 (0.9-1.1); Prothrombin Time 12.2 Seconds (9.0-12.0)
[2023-11-27 05:33] LABS: Basophils # (auto) 0.04 K/uL (0.00-0.20); Basophils % (auto) 0.3 %; Eosinophils # (auto) 0.13 K/uL (0.00-0.50); Immature Granulocytes # (auto) 0.04 K/uL (0.01-0.20); Immature Granulocytes % (auto) 0.3 %; Lymphocytes # (auto) 3.12 K/uL (1.20-3.40); Lymphocytes % (auto) 23.4 %; Monocytes # (auto) 1.69 K/uL (0.11-0.59); Monocytes % (auto) 12.6 %; Neutrophils # (auto) 8.34 K/uL (1.40-6.50); Neutrophils % (auto) 62.4 %; Polychromasia 1+
[2023-11-27 05:34] LABS: Dohle Bodies 1+
--- NOTE | 2023-11-27 07:07 | XRay Report ---
XR chest 1V portable HISTORY: 63 years-old Male Resp failure acute respiratory failure COMPARISON: 11/26/2023 TECHNIQUE: AP view of the chest FINDINGS: Endotracheal tube overlies the midline, 3.9 cm superior to the mattie. Heart is enlarged. Enteric tub e courses below the diaphragm outside the field of view. Mild right hemidiaphragmatic elevation. Smal l pleural effusions. Bilateral airspace opacities, most of the right greater than left lung bases and right midlung. No pneumothorax identified. Bones appear grossly intact. IMPRESSION: 1. Lines and tubes as above. 2. Stable appearance of the multifocal pneumonia. ACT 112: Negative or not required by law. The above report was generated using voice recognition software. It may contain grammatical, syntax o r spelling errors. Electronically signed by: Chito Chapman M.D. 11/27/2023 7:06 AM
--- NOTE | 2023-11-27 07:57 | Critical Care Progress Note ---
Date of Service November 27, 2023 Assessment & Plan (1) Fall: (2) Closed T8 spinal fracture: (3) Nasal bone fracture: (4) Supratherapeutic INR: (5) Seizure disorder: (6) Current long-term use of 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 medication with history of deep venous thrombosis (DVT): (7) T2DM (type 2 diabetes mellitus): (8) HLD (hyperlipidemia): (9) Lymphedema: (10) Hepatic encephalopathy: (11) Acute hypoxic respiratory failure: Plan 63-year-old male was admitted to the hospital for fall, transferred to ICU for ventilatory failure and septic shock Past medical history: Diabetes type 2, dyslipidemia, history of liver failure, BPH, DVT in 2001 on Coumadin, seizure disorder. Neuro: -- Metabolic encephalopathy Multifactorial Hyperammonia from underlying seizure medications Severe sepsis with septic shock CT head negative for any acute findings on 11/23/2023 -- Epilepsy Home antiepileptic regimen consists of Depakote, Dilantin, and Topama. Hold Topamax. Cardiac: -- Septic shock Likely secondary to multilobar pneumonia as well as SBO Continue with antibiotics Continue vasopressor support to keep MAP greater than 65 --Elevated troponin Likely type II ID Tropes are trending down 2D echo 11/26/2023: EF 55 to 70%, RV is not visualized EKG 11/26/2023 after Intubation: Sinus tachycardia, ST depressions on the lateral leads. No ST elevations Resp: -- VDRF Secondary to acute hypoxic respiratory failure from multilobar pneumonia likely from aspiration Continue with ventilatory support Keep RASS -1 Daily sedation holidays and SBT's GI: -- Small bowel obstruction Continue with OG tube Surgery on board Renal: -- monitor BUNs/creatinine Avoid nephrotoxic medications --History of right-sided nephrectomy : Strict I/Os Endo: ICU hyperglycemia protocol, blood glucose checks, maintain euglycemia Heme: -- monitor H&H ID: -- Multilobar pneumonia Continue with antibiotics Nasal MRSA negative Pro-Andrew negative Sputum culture growing gram-negative bacilli Follow-up blood culture --Prophylaxis VTE: Heparin drip, currently on hold GI: None Lines: Right femoral, right radial, positive Edwards, positive EGD Diet: N.p.o. Plan: In/out: +3.4 L, urine output 1843 ABG 7.34/32/69 on PEEP of 10, 40%. PEEP was decreased to 8 and FiO2 decreased to 30% Sputum culture growing gram-negative bacilli, continue with Zon Surgery recommending conservative management for the time being Titrate down vasopressors to keep MAP greater than 65, go down on the sedation as much as possible to keep patient RASS -1 Continue with OGT to intermittent suction Patient has metabolic acidosis without anion gap, patient is likely having metabolic alkalosis from the intermittent suctioning Lactate will be ordered to make sure there is no lactic acidosis, DKA is a possibility as well, UA has been ordered to look for ketones Follow-up ammonia today If no intervention is planned from surgery then we will start the patient on heparin drip without bolus I have personally spent 46 minutes of critical care time in the direct management of this patient. This is a life/limb threatening event. This includes time spent evaluating patient, direct bedside care, chart review, placing orders, interpretation of diagnostic studies, discussion with consultants, patient, and/or family members regarding treatment decisions, as well as other required patient management activities. This time is exclusive of all separately billable procedures, and teaching time and separate from and in addition to any other critical care service time. Intubation: Admission and Anticipated Discharge Date Admission Date: November 23, 2023 Subjective Patient seen and examined at bedside. No acute distress, no events events overnight As per the nurse patient was moving all the extremities overnight but not following commands. He was on 35 propofol, 100 of fentanyl, 0.16 of Levophed and 0.04 of vasopressin at the time of examination He was breathing over the vent, MAP was in the 70s Still spiking fever Tmax 39.3. Currently on cooling blanket Review of Systems 2 Review of Systems: Unobtainable due to endotracheal tube Physical Exam 2 Physical Exam: Constitutional: No acute distress HEENT: PERRLA, left-sided periorbital hematoma, deformed nasal septum Respiratory system: Decreased air entry bilaterally, no wheeze, no rhonchi, positive crackles bilaterally CVS: S1-S2 positive, no murmurs or gallops Abdomen: Right upper quadrant scar, distended, no rebound, decreased bowel sounds Extremities: +2 pulses bilaterally radialis/ dorsalis pedis, no cyanosis, +1 pitting edema bilateral lower extremity Neuro: Sedated, RASS -2 Psych: Unable to assess G/U: Positive Edwards Musculoskeletal: Severe cervical kyphosis Skin: no rashes, warm and dry Lymphatic: no cervical or axillary lymphadenopathy Results & Data Results & Data Vital Signs (Past 12 Hours) Vital Signs Temp Pulse Resp BP Pulse Ox FiO2 11/27/23 05:00 110/70 11/27/23 05:00 98 H 21 93 11/27/23 04:41 94 H 33 H 97 40 11/27/23 04:00 111/67 11/27/23 04:00 97 H 23 94 11/27/23 04:00 40 11/27/23 03:10 38.6 C H 95 H 22 97 11/27/23 03:00 95 H 21 11/27/23 03:00 111/62 11/27/23 02:30 38.6 C H 106/63 11/27/23 02:30 96 H 22 11/27/23 02:22 97 H 22 97 11/27/23 02:22 109/62 11/27/23 02:05 99 H 22 96 11/27/23 02:05 117/62 11/27/23 02:00 38.6 C H 113/64 11/27/23 02:00 96 H 21 11/27/23 01:30 114/64 11/27/23 01:30 95 H 22 11/27/23 01:00 103/57 L 11/27/23 01:00 38.6 C H 91 H 23 96 11/27/23 00:30 82/51 L 11/27/23 00:30 91 H 24 11/27/23 00:00 38.6 C H 90 25 H 11/27/23 00:00 98/57 L 11/27/23 00:00 91 H 11/27/23 00:00 40 11/26/23 23:30 91 H 23 11/26/23 23:30 92/56 L 11/26/23 23:00 35.9 C L 99/58 L 11/26/23 23:00 93 H 22 11/26/23 22:56 102 H 33 H 94 40 11/26/23 22:30 95/55 L 11/26/23 22:30 98 H 24 11/26/23 22:06 103 H 22 93 11/26/23 22:06 85/48 L 11/26/23 22:00 39.1 C H 86/50 L 04/23/24 22:00 104 H 23 11/26/23 21:30 104 H 24 11/26/23 21:30 39.3 C H 100/54 L 11/26/23 21:00 106 H 27 H 11/26/23 21:00 39.5 C H 98/57 L 11/26/23 20:30 88/51 L 11/26/23 20:30 39.5 C H 109 H 24 11/26/23 20:00 101/60 11/26/23 20:00 39.3 C H 115 H 27 H 95 Laboratory Results 11/27/23 03:56 11/27/23 03:56 Coding Level of Care Code 81022 CRITICAL CARE 1ST 30-74M Diagnoses Fall W19.XXXA Closed T8 spinal fracture S22.069A Nasal bone fracture S02.2XXA Supratherapeutic INR R79.1 Seizure disorder G40.909 Current long-term use of 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 medication with history of deep venous thrombosis (DVT) Z86.718; Z79.01 T2DM (type 2 diabetes mellitus) E11.9 HLD (hyperlipidemia) E78.5 Lymphedema I89.0 Hepatic encephalopathy K76.82 Acute hypoxic respiratory failure J96.01
[2023-11-27] MEDS: FAMOTIDINE 20MG IV PUSH 20 MG/5 ML SYR IV SCH (08:16)
--- NOTE | 2023-11-27 11:33 | Surgery Progress Note ---
Date of Service November 27, 2023 Assessment & Plan (1) Small bowel obstruction: Plan: likely functional rather than mechanical no plans for urgent surgical intervention... keep OGT. will repeat KUB tomorrow will follow along closely pt would be high surgical risk (2) Closed T8 spinal fracture: (3) CHI (closed head injury): (4) Chronic liver disease: (5) Acute metabolic encephalopathy: Admission and Anticipated Discharge Date Admission Date: November 23, 2023 Subjective as above. no major clinical changes. OGT in place. pt sedated on vent Physical Exam Physical Exam: sedated on vent abd: soft. + distended. no bs's. no peritoneal signs. Results & Data Vital Signs (Past 12 Hours) Vital Signs Temp Pulse Resp BP Pulse Ox FiO2 11/27/23 08:47 88 21 95 30 11/27/23 05:00 110/70 11/27/23 05:00 98 H 21 93 11/27/23 04:41 94 H 33 H 97 40 11/27/23 04:00 111/67 11/27/23 04:00 97 H 23 94 11/27/23 04:00 40 11/27/23 03:10 38.6 C H 95 H 22 97 11/27/23 03:00 95 H 21 11/27/23 03:00 111/62 11/27/23 02:30 38.6 C H 106/63 11/27/23 02:30 96 H 22 11/27/23 02:22 97 H 22 97 11/27/23 02:22 109/62 11/27/23 02:05 99 H 22 96 11/27/23 02:05 117/62 11/27/23 02:00 38.6 C H 113/64 11/27/23 02:00 96 H 21 11/27/23 01:30 114/64 11/27/23 01:30 95 H 22 11/27/23 01:00 103/57 L 11/27/23 01:00 38.6 C H 91 H 23 96 11/27/23 00:30 82/51 L 11/27/23 00:30 91 H 24 11/27/23 00:00 38.6 C H 90 25 H 11/27/23 00:00 98/57 L 11/27/23 00:00 91 H 11/27/23 00:00 40 PG Care Time/CCT Total # of Minutes Spent Total Time Spent with Patient: Total time spent is greater than 50% in coordination of care (as documented) at patient's floor/unit and/or counseling patient: Coding Level of Care Code 46689 SUB INP/OBS CARE 2/35MIN Diagnoses Small bowel obstruction K56.609 Closed T8 spinal fracture S22.069A CHI (closed head injury) S09.90XA Chronic liver disease K76.9 Acute metabolic encephalopathy G93.41
[2023-11-27 11:36] LABS: Appearance Urine Cloudy (Clear); Bacteria Urine Automated None Seen (None Seen); Bilirubin Urine 1+ (Negative); Blood Urine Trace (Negative); Color Urine Dark Yellow; Epithelial Cell Urine Auto 0-2 /hpf (0-2); Glucose Urine UA Negative (Negative); Ketones Urine Negative (Negative); Leukocyte Esterase Urine Trace (Negative); Nitrite Urine Negative (Negative); Protein Urine 1+ (Negative); Specific Gravity Urine > 1.045 (1.000-1.030); Urobilinogen Urine Negative (Negative); WBC Urine Automated 0-5 /hpf (0-5)
[2023-11-27 11:50] LABS: Amorphous Sediment Urine Present (None Prsent)
[2023-11-27 14:44] LABS: BUN Creatinine Ratio 22.9 (10-20); Creatinine Clr Calc Pharmacy 92.8 ml/min; Est GFR (African American) 82.1 ml/min; Est GFR (Non-African American) 70.9 ml/min; Potassium 3.9 mmol/L (3.5-5.1)
--- NOTE | 2023-11-27 16:24 | Electrocardiogram Report ---
Test Reason : Blood Pressure : / mmHG Vent. Rate : 089 BPM Atrial Rate : 089 BPM P-R Int : 156 ms QRS Dur : 086 ms QT Int : 396 ms P-R-T Axes : 051 059 056 degrees QTc Int : 481 ms Normal sinus rhythm Prolonged QT Abnormal ECG When compared with ECG of 26-NOV-2023 11:22, Non-specific change in ST segment in Inferior leads T wave inversion no longer evident in Inferior leads T wave inversion no longer evident in Lateral leads Confirmed by Jimmy Bradshaw ([id number]) on 11/27/2023 4:24:39 PM Referred By: REFERRED SELF Confirmed By:Jimmy Bradshaw
--- NOTE | 2023-11-27 16:43 | Hospitalist Progress Note ---
Date of Service November 27, 2023 Assessment & Plan (1) Fall: (2) Closed T8 spinal fracture: (3) Nasal bone fracture: (4) Supratherapeutic INR: (5) Seizure disorder: (6) Current long-term use of 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 medication with history of deep venous thrombosis (DVT): (7) T2DM (type 2 diabetes mellitus): (8) HLD (hyperlipidemia): (9) Lymphedema: Plan 63yo M with a PMH of DM II, dyslipidemia, venous insufficiency, history of liver failure, BPH, DVT in 2011 on coumadin, venous insufficiency, history of generalized convulsive epilepsy, history of a solitary kidney and other medical problems listed below who presents from home after a fall. He is being managed for the following: Likely metabolic vs Hepatic encephalopathy: NH3 elevated iso sbo Small bowel obstruction Fever: ? Pulmonary origin, MRSA screen neg. Severe sepsis with shock: Likely secondary to pneumonia, currently needing pressor support Patient had a code purple 11/25 AM, was hypoxic/altered/vomiting --> intubated 11/25 and transferred to ICU. CT head with no acute finding. CT abdomen pelvis with findings suggestive of SBO and lower lung consolidation suggestive of pneumonia or aspiration pneumonitis. CT chest suggestive of extensive bilateral lower lobe consolidation, pneumonia versus aspiration pneumonitis. Patient is intubated, being managed in ICU. Currently needing pressor support and is febrile General surgery on board, appreciate recommendation. Gastric tube for decompression. Patient started on Zosyn 11/25. continue. IVF and PPI. Lactulose pr. Abnormal EKG/? Chest pain: Rule out ACS, discussed with cardiology 11/25, echo without regional wall motion abnormality. Continue telemetry monitoring, will follow cardiology recs. Mechanical Fall Closed T8 spinal fracture Lumbar spine CT with oblique fracture through the anterior body of T8 which extends through the inferior endplate and likely involves the T8-T9 disc space. This fracture may be unstable. Mild prevertebral edema/hemorrhage is seen at the T8 level [facility] evaluated-mobilization with physical therapy, not an area of spine amenable to bracing. No bending/lifting or twisting, good body mechanics and posture Pain control, aggressive bowel regimen. Follow closely for bowel movements. Fall precautions PT/OT Likely need for rehab - patient has ambulatory dysfunction at baseline as well as deconditioning from previous hospitalization Nasal bone fractures No acute bleeding Continue ice, pain control Discussed with [facility] 11/24 no indication for surgery for now, follow-up with [facility] as an outpatient. Okay to resume his anticoagulation. Supratherapeutic INR : resolved. 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 : Remote history . anticoagulation Uncontrolled DM II HbA1c 10.5 in Aug , A1c better this admission Hold home agents Basal/bolus insulin per protocol while in-patient BSG AC HS Seizure disorder Continue home Depakote, Dilantin and topiramate BLE neuropathy Gabapentin dose recently changed to 100mg TID BPH On Flomax and Proscar Bladder scan PRN Chronic lymphedema Chronic Venous insufficiency No open wounds Continue home Lasix Monitor for volume overload Gout Continue allopurinol Solitary kidney As per records DVT Ppx: Hep drip Code status: FULL PCP: Cruz Dispo: Admitted to med/surg Admission and Anticipated Discharge Date Admission Date: November 23, 2023 Subjective Patient was seen and examined at bedside. Patient was lying in bed, intubated, mechanically ventilated, sedated, requiring pressor support. Patient's sister Lo and Molly were at bedside, they are updated on plan of care and answered all their questions. Per RN, patient has normal bowel, patient tolerated CPAP trial in the morning. Patient is still requiring fentanyl and propofol and norepinephrine in place present. Physical Exam Physical Exam: GENERAL: Intubated, sedated, on fentanyl/norepinephrine/vasopressin/propofol HEENT: No pallor, no icterus. Pupils equal, round and reactive to light. Oral mucosa dry. NECK: No JVD, no neck masses. nasal bridge swelling. HEART: S1 and S2 heard. Regular rate and rhythm. No murmur, no gallop. RESPIRATORY SYSTEM: Normal AP diameter. No accessory muscle use. No wheezing, occasional bilateral crackles. Intubated, conducted breath sounds. ABDOMEN: Distention, tenderness N/A, decreased bowel sounds CENTRAL NERVOUS SYSTEM: No facial droop. Obeys simple commands. Moves extremities. EXTREMITIES: chronic lymphedema, no erythema seen. Results & Data Results & Data Vital Signs (Past 12 Hours) Vital Signs Pulse Resp BP Pulse Ox O2 Del Method FiO2 11/27/23 15:04 30 11/27/23 12:36 28 H 30 11/27/23 11:47 30 11/27/23 08:47 88 21 95 30 11/27/23 08:00 Mechanical Vent 0.3 11/27/23 08:00 30 11/27/23 05:00 110/70 11/27/23 05:00 98 H 21 93 11/27/23 04:41 94 H 33 H 97 40
--- NOTE | 2023-11-27 19:01 | Cardiology Progress Note ---
Date of Service November 27, 2023 Assessment & Plan (1) Acute hypoxic respiratory failure: (2) Abnormal EKG: (3) Small bowel obstruction: (4) Closed T8 spinal fracture: Plan Patient with sepsis syndrome with multilobar pneumonia likely due to aspiration. Still febrile, cooling blanket in place. Patient remains on norepinephrine for blood pressure support at 0.05 mcg/kg/min Normal saline 75 mm/h Propofol and fentanyl for sedation Heparin infusion given history of past DVT Insulin infusion Patient with mild troponin elevation due to myocardial strain in the setting of systemic illness. Troponin trending down. Repolarization abnormalities noted on EKG on 11/26/2023 have resolved. Hyperdynamic left ventricular systolic function noted on echo. Continue supportive care. Already on heparin related to history of DVT. Orogastric tube in place given small bowel obstruction. Input from the surgery team noted and appreciated. Continue Zosyn. Blood cultures negative thus far. DVT prophylaxis: Remains on heparin infusion. Admission and Anticipated Discharge Date Admission Date: November 23, 2023 Subjective Patient sedated remains mechanically ventilated. Telemetry reveals sinus rhythm at just around 100 bpm without arrhythmias. Physical Exam Constitutional: + ill appearing ENMT: Ecchymosis noted over nose consistent with bilateral nasal bone fractures Respiratory: + respiratory distress and + labored sylwia athing Auscultation: + diminished lung sounds Cardiovascular: Rate/Rhythm: regular rate, regular rhythm and + tachycardic Heart Sounds: no murmur Vessels: no JVD Extremities: no edema Gastrointestinal (Abdomen): Inspection/Auscultation: + abdomen distended (Evidence of ventral hernia) Results & Data Vital Signs (Past 12 Hours) Vital Signs Pulse Resp Pulse Ox O2 Del Method FiO2 11/27/23 16:53 22 30 11/27/23 15:04 30 11/27/23 12:36 28 H 30 11/27/23 11:47 30 11/27/23 08:47 88 21 95 30 11/27/23 08:00 Mechanical Vent 0.3 11/27/23 08:00 30 Laboratory Results Cardiac Enzymes 11/26/23 11/27/23 Range/Units 20:12 03:56 Troponin I High Sens 134.1 H* D 57.0 H* D (0-20) pg/ml Coagulation 11/27/23 Range/Units 03:56 PT 12.2 H (9.0-12.0) Seconds CBC 11/27/23 Range/Units 03:56 WBC 13.36 H (4.8-10.8) K/ul RBC 4.01 L (4.70-6.10) M/uL Hgb 13.6 L D (14.0-18.0) g/dl Hct 39.7 L (42.0-52.0) % Plt Count 157 (130-400) K/uL Neut # (Auto) 8.34 H (1.40-6.50) K/uL Lymph # (Auto) 3.12 (1.20-3.40) K/uL [place] # (Auto) 1.69 H (0.11-0.59) K/uL Eos # (Auto) 0.13 (0.00-0.50) K/uL Baso # (Auto) 0.04 (0.00-0.20) K/uL Comprehensive Metabolic Panel 11/27/23 11/27/23 Range/Units 03:56 14:12 Sodium 137 135 L (136-145) mmol/L Potassium 3.9 3.9 (3.5-5.1) mmol/L Chloride 110 H 109 H (98-107) mmol/L Carbon Dioxide 17 L 18 L (21-32) mmol/L BUN 24 H 25 H (6-23) mg/dl Creatinine 1.13 1.09 (0.6-1.4) mg/dl Glucose 151 H 132 H (70-99(Fasting)) mg/dl Calcium 7.8 L 7.0 L (8.6-10.3) mg/dl Intake and Output 11/27/23 11/27/23 11/27/23 06:59 14:59 22:59 Intake Total 1866.640 / 4884.218 1457.657 / 1614.997 157.340 / 1614.997 Output Total 565 / 1842 340 / 340 Balance 1301.640 / 3042.218 1117.657 / 1274.997 157.340 / 1274.997 Intake: IV 1866.640 / 4884.218 1457.657 / 1614.997 157.340 / 1614.997 Acetaminophen 1,000 mg In 100 100 / 300 100 / 100 ml @ 400 mls/hr IV Q8H PRN Rx#: [id number] Fosphenytoin 400 mgpe In Sodium 58 / 58 Chloride 0.9% 50 ml @ 116 mls/ hr IV BID [facility] Rx#:[id number] Insulin Regular 250 units In 21.24 / 50.54 12.24 / 48.705 36.465 / 48.705 Sodium Chloride 0.9% 247.5 ml @ 2.3 UNITS/HR 2.3 mls/hr IV . Q24H [facility] Rx#:[id number] Norepinephrine/D5w 4 mg In 250 418.3 / 641.823 250.00 / 250.00 ml @ 0.08 MCG/KG/MIN 30.6 mls/ hr IV .Q8H11M [facility] Rx#:[id number] Piperacillin/Tazobactam 4.5 gm 100 / 200 100 / 100 In Dextrose 5% Mini-B 100 ml @ 25 mls/hr IV Q8H [facility] Rx#: [id number] Plasma-Lyte A 1,000 ml @ 999 1000 / 1000 mls/hr IV .Q1H1M [facility] Rx#: [id number] Sodium Chloride 0.9% 1,000 ml @ 548.75 / 548.75 75 mls/hr IV .E08R40M [facility] Rx#: [id number] Valproate Sod 500 mg In 55 / 110 110 / 110 Dextrose 5% 50 ml @ 55 mls/hr IV Q6 [facility] Rx#:[id number] Vasopressin 20 units In 0.9 % 36.3 / 90.347 101.000 / 101.000 Sodium Chloride 100 ml @ 0.04 UNIT/MIN 12.12 mls/hr IV . Q8H20M [facility] Rx#:[id number] fentaNYL citrate 2,500 mcg In 135.667 / 198.542 62.875 / 198.542 250 ml @ 125 MCG/HR 12.5 mls/hr IV .Q20H [facility] Rx#:[id number] propofoL 1,000 mg In 100 ml @ 135.800 / 276.925 100.000 / 100.000 35 MCG/KG/MIN 21.42 mls/hr IV . Q4H41M [facility] Rx#:[id number] Oral 0 / 0 Output: Urine Amount (Catheter) 365 / 940 240 / 240 Edwards/Indwelling 365 / 940 240 / 240 Gastric Drainage 200 / 900 100 / 100 Oral Orogastric 200 / 900 100 / 100 # Bowel Movements 0 / 0 Other: Weight 122.8 kg Weight Measurement Method Built in [facility] Diagnostic Findings EKG performed 11/27/2023 at 6:59 AM and interpreted independently: Normal sinus rhythm 89 bpm, mildly elevated corrected QT interval at 481 ms. Compared to the previous tracing performed on 11/26/2023 at 11:22 AM, the ST-T wave changes in the inferior lateral leads has resolved. Echocardiogram performed 11/26/2023: Technically limited study due to poor acoustic windows with patient supine and on the ventilator under sedation. The left ventricular systolic function was noted to be hyperdynamic LVEF in the range of 65-70%. Right ventricle and the valvular structures were not adequately visualized to allow for comment.
[2023-11-27] MEDS: LANTUS PER UNIT CHARGE SQ STA (20:25)
[2023-11-27 21:47] LABS: ANTI-Xa, UFH(UnfractionatedHep 0.22 IU/ml (0.3-0.7)
[2023-11-27] MEDS ORDERED: DEXTROSE 50% 50 ML SYRINGE IV PRN (22:20)
[2023-11-27] MEDS ORDERED: PHARMACY GLYCEMIC MGMT CONSULT PRN (22:20)
[2023-11-27] MEDS ORDERED: GLUCOSE 10 TAB/TUBE PO PRN (22:20)
[2023-11-27] MEDS ORDERED: GLUCOSE 40% GEL 15 GM TUBE PO PRN (22:20)
[2023-11-27] MEDS ORDERED: GLUCAGON FOR INJ 1 MG VIAL SQ PRN (22:20)
[2023-11-27] MEDS ORDERED: CARBOHYDRATES FOR HYPOGLYCEMIA PO PRN (22:20)
[2023-11-27] MEDS ORDERED: Nursing to Pharmacy Communication SCH (23:15)
[2023-11-28] MEDS: INSULIN ASPART PER UNIT CHARGE SC SCH (00:10)
[2023-11-28 04:24] LABS: Hematocrit (blood only) 35.6 % (42.0-52.0); Hemoglobin 12.1 g/dl (14.0-18.0); Mean Corpuscular Hemoglobin 34.3 pg (25.0-34.0); Mean Corpuscular Volume 100.8 fL (80.0-100.0); Nucleated RBC # (auto) 0.02 K/uL (0.00-0.12); Nucleated RBC % (auto) 0.2 %; Platelet Count 127 K/uL (130-400); RDW Coefficient of Variation 15.6 % (11.5-14.5); RDW Standard Deviation 57.8 fL (36.4-46.3); Red Blood Count 3.53 M/uL (4.70-6.10); White Blood Count 11.57 K/ul (4.8-10.8)
[2023-11-28 04:32] LABS: Calcium 7.4 mg/dl (8.6-10.3); Creatinine Clr Calc Pharmacy 97.2 ml/min; Est GFR (African American) 86.9 ml/min; Magnesium 1.9 mg/dl (1.7-2.4); Phosphorus 3.3 mg/dl (2.5-4.9)
[2023-11-28 04:47] LABS: Basophils # (auto) 0.05 K/uL (0.00-0.20); Basophils % (auto) 0.4 %; Dohle Bodies 1+; Eosinophils % (auto) 2.6 %; Immature Granulocytes # (auto) 0.06 K/uL (0.01-0.20); Immature Granulocytes % (auto) 0.5 %; Lymphocytes # (auto) 1.18 K/uL (1.20-3.40); Lymphocytes % (auto) 10.2 %; Monocytes # (auto) 1.35 K/uL (0.11-0.59); Monocytes % (auto) 11.7 %; Neutrophils # (auto) 8.63 K/uL (1.40-6.50); Neutrophils % (auto) 74.6 %; Polychromasia 1+; Toxic Vacuolation 1+
[2023-11-28 04:49] LABS: ANTI-Xa, UFH(UnfractionatedHep 0.28 IU/ml (0.3-0.7); INR 1.1 (0.9-1.1); Prothrombin Time 11.7 Seconds (9.0-12.0)
[2023-11-28 04:56] LABS: iSTAT Art Bld Gas pCO2 Correct 33 mmHg (35-46); iSTAT Art Bld Gas pH Corrected 7.328 (7.35-7.45); iSTAT Arterial Blood Gas HCO3 17 meg/L (19-24); iSTAT Arterial Blood Gas pCO2 32 mmHg (35-46); iSTAT Arterial Blood Gas pH 7.34 (7.35-7.45); iSTAT Arterial Blood Gas pO2 70 mmHg (80-95); iSTAT Arterial Blood Gas pO2 C 74; iSTAT Carbon Dioxide 18 mmol/L (24-31); iSTAT FiO2 30 %; iSTAT Hematocrit 34 % (42-52); iSTAT Hemoglobin 11.6 g/dl (14.0-18.0); iSTAT Potassium 3.9 mmol/L (3.3-5.0); iSTAT Site Art Line; iSTAT Sodium 134 mmol/L (135-144)
[2023-11-28] MEDS: MAGNESIUM SULFATE / D5W 1 GM/100 ML BAG IV ONE ×2 (06:15→09:06)
--- NOTE | 2023-11-28 07:34 | Critical Care Progress Note ---
Date of Service November 28, 2023 Assessment & Plan (1) Fall: (2) Closed T8 spinal fracture: (3) Nasal bone fracture: (4) Supratherapeutic INR: (5) Seizure disorder: (6) Current long-term use of 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 medication with history of deep venous thrombosis (DVT): (7) T2DM (type 2 diabetes mellitus): (8) HLD (hyperlipidemia): (9) Lymphedema: (10) Hepatic encephalopathy: (11) Acute hypoxic respiratory failure: Plan 63-year-old male was admitted to the hospital for fall, transferred to ICU for ventilatory failure and septic shock Past medical history: Diabetes type 2, dyslipidemia, history of liver failure, BPH, DVT in 2001 on Coumadin, seizure disorder. Neuro: -- Metabolic encephalopathy Multifactorial Hyperammonia from underlying seizure medications Severe sepsis with septic shock CT head negative for any acute findings on 11/23/2023 -- Epilepsy Home antiepileptic regimen consists of Depakote, Dilantin, and [place]. Hold Topamax. Cardiac: -- Septic shock Likely secondary to multilobar pneumonia as well as SBO Continue with antibiotics Continue vasopressor support to keep MAP greater than 65 --Elevated troponin Likely type II IA Tropes are trending down 2D echo 11/26/2023: EF 55 to 70%, RV is not visualized EKG 11/26/2023 after Intubation: Sinus tachycardia, ST depressions on the lateral leads. No ST elevations Resp: -- VDRF Secondary to acute hypoxic respiratory failure from multilobar pneumonia likely from aspiration Continue with ventilatory support Keep RASS -1 Daily sedation holidays and SBT's GI: -- Small bowel obstruction Continue with OG tube Surgery on board Renal: -- Monitor BUNs/creatinine Avoid nephrotoxic medications --History of right-sided nephrectomy : Strict I/Os Endo: ICU hyperglycemia protocol, blood glucose checks, maintain euglycemia Heme: --Thrombocytopenia Acute on chronic Continue to trend especially given the patient is on heparin -- monitor H&H ID: -- Multilobar pneumonia Continue with antibiotics Nasal MRSA negative Pro-Andrew negative Sputum culture growing Klebsiella which is resistant to Zosyn, antibiotic changed to Rocephin today Follow-up blood culture --Prophylaxis VTE: Heparin drip resumed 11/27/23 GI: Pepcid Lines: Right femoral, right radial, positive Edwards, positive ETT Diet: N.p.o. Plan: In/out: + 3.2 L, urine output 1040 AB.34/32/70 on PEEP of 8, 30% +5.7 L since being in the hospital. I will decrease the IV fluid rate to 40 mL/h. I would not consider giving Lasix 20 mg daily today based on urine output Sputum culture is growing Klebsiella which is resistant to Zosyn, antibiotic changed to Rocephin and will complete the course for 7 days KUB shows improvement in the bowel gas pattern. No bowel movement yet. Output from OGT in the last 12 hours is 300 mL. Continue with IV seizure medications. Follow-up ammonia from today. Magnesium being replaced I have personally spent 40 minutes of critical care time in the direct management of this patient. This is a life/limb threatening event. This includes time spent evaluating patient, direct bedside care, chart review, placing orders, interpretation of diagnostic studies, discussion with consultants, patient, and/or family members regarding treatment decisions, as well as other required patient management activities. This time is exclusive of all separately billable procedures, and teaching time and separate from and in addition to any other critical care service time. Intubation: Admission and Anticipated Discharge Date Admission Date: November 23, 2023 Subjective Patient seen and examined at bedside. No acute distress, no adverse events overnight Patient was on propofol 40, fentanyl 125 at the time of examination. He is also on Levophed 0.08 Still spiking low-grade fever. He has been on cooling blanket. RASS -2. No bowel movement As per the nurse patient did get restless when they tried to go down on sedation Review of Systems 2 Review of Systems: All systems reviewed & are unremarkable except as noted in Subjective Physical Exam 2 Physical Exam: Constitutional: No acute distress HEENT: PERRLA, left-sided periorbital hematoma, deformed nasal septum Respiratory system: Decreased air entry bilaterally, no wheeze, no rhonchi, positive crackles bilaterally CVS: S1-S2 positive, no murmurs or gallops Abdomen: Right upper quadrant scar, soft, nondistended, reducible epigastric hernia, no rebound, decreased bowel sounds Extremities: +2 pulses bilaterally radialis/ dorsalis pedis, no cyanosis, +1 pitting edema bilateral lower extremity Neuro: Sedated, RASS -2 Psych: Unable to assess G/U: Positive Edwards Musculoskeletal: Severe cervical kyphosis Skin: no rashes, warm and dry Lymphatic: no cervical or axillary lymphadenopathy Results & Data Results & Data Vital Signs (Past 12 Hours) Vital Signs Pulse Resp BP Pulse Ox O2 Del Method FiO2 11/28/23 05:50 88 20 96 11/28/23 05:40 90 20 96 11/28/23 05:30 91 H 22 96 11/28/23 05:30 112/63 11/28/23 05:20 90 21 95 11/28/23 05:10 90 21 96 11/28/23 05:00 118/63 11/28/23 05:00 93 H 20 93 11/28/23 04:50 92 H 20 96 11/28/23 04:40 93 H 19 95 11/28/23 04:30 92 H 21 96 11/28/23 04:30 112/62 11/28/23 04:30 92 H 23 96 30 11/28/23 04:20 96 H 20 94 11/28/23 04:10 94 H 22 95 11/28/23 04:00 95 H 22 95 11/28/23 04:00 123/67 11/28/23 04:00 103 H 135/75 11/28/23 04:00 30 11/28/23 03:50 94 H 24 95 11/28/23 03:40 94 H 21 96 11/28/23 03:30 95 H 23 96 11/28/23 03:30 111/62 11/28/23 03:20 95 H 24 91 11/28/23 03:10 96 H 18 95 11/28/23 03:00 133/75 11/28/23 03:00 99 H 27 H 95 11/28/23 02:50 97 H 20 95 11/28/23 02:40 97 H 21 95 11/28/23 02:30 97 H 20 95 11/28/23 02:30 118/62 11/28/23 02:20 96 H 21 95 11/28/23 02:10 97 H 20 95 11/28/23 02:05 96 H 22 96 11/28/23 01:30 95 H 22 98 11/28/23 01:30 110/61 11/28/23 01:20 95 H 21 97 11/28/23 01:10 96 H 22 97 11/28/23 01:00 103 H 27 H 93 11/28/23 01:00 135/75 04 00:50 97 H 20 97 11/28/23 00:40 97 H 21 97 11/28/23 00:30 108/59 L 11/28/23 00:30 98 H 22 97 11/28/23 00:20 97 H 22 96 11/28/23 00:10 99 H 20 96 11/28/23 00:00 98 H 21 96 11/28/23 00:00 111/57 L 11/28/23 00:00 40 11/27/23 23:55 99 H 22 96 40 11/27/23 23:50 100 H 23 96 11/27/23 23:40 98 H 22 96 11/27/23 23:30 108/59 L 11/27/23 23:30 99 H 22 97 11/27/23 23:20 100 H 23 96 11/27/23 23:10 100 H 20 96 11/27/23 23:00 101 H 22 96 11/27/23 23:00 115/59 L 11/27/23 22:50 101 H 24 96 11/27/23 22:40 100 H 22 96 11/27/23 22:30 103 H 22 90 11/27/23 22:30 125/60 11/27/23 22:20 103 H 26 H 94 11/27/23 22:10 100 H 23 94 04 22:00 99 H 25 H 93 11/27/23 22:00 115/60 11/27/23 21:50 95 H 22 95 11/27/23 21:40 94 H 21 95 04 21:30 106/58 L 11/27/23 21:30 94 H 21 95 04 21:20 93 H 20 96 04 21:10 93 H 18 95 04 21:00 93 H 22 96 04 21:00 99/56 L 11/27/23 20:50 93 H 22 96 04 20:40 95 H 21 94 04 20:30 97/54 L 11/27/23 20:30 94 H 20 96 04 20:20 95 H 21 96 04 20:10 94 H 20 95 04 20:10 93 H 21 96 30 04/24 20:00 95/53 L 11/27/23 20:00 94 H 21 94 11/27/23 20:00 Mechanical Vent 30 11/27/23 20:00 30 11/27/23 20:00 88 11/27/23 19:50 94 H 20 94 11/27/23 19:40 93 H 20 94 Laboratory Results 11/28/23 03:45 11/28/23 03:45 Coding Level of Care Code 46067 CRITICAL CARE 1ST 30-74M Diagnoses Fall W19.XXXA Closed T8 spinal fracture S22.069A Nasal bone fracture S02.2XXA Supratherapeutic INR R79.1 Seizure disorder G40.909 Current long-term use of 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 medication with history of deep venous thrombosis (DVT) Z86.718; Z79.01 T2DM (type 2 diabetes mellitus) E11.9 HLD (hyperlipidemia) E78.5 Lymphedema I89.0 Hepatic encephalopathy K76.82 Acute hypoxic respiratory failure J96.01
--- NOTE | 2023-11-28 08:08 | XRay Report ---
XR chest 1V portable HISTORY: Resp failure COMPARISON: Chest 11/27/2023. FINDINGS: There are low lung volumes with patchy bibasilar densities, unchanged. Suspect a trace righ t pleural effusion. Perihilar interstitial/vascular thickening persists consistent with mild pulmonar y edema. The patient's nasogastric tube is not well visualized distally. The endotracheal tube termin ates 3.1 cm from the mattie. IMPRESSION: 1. The patient's nasogastric tube is not well visualized distally. 2. Endotracheal tube terminates 3.1 cm from the mattie. 3. Bibasilar airspace opacities and mild pulmonary edema persists. ACT 112: Negative or not required by law. Electronically signed by: Maynor Augustin M.D. 11/28/2023 8:07 AM
--- NOTE | 2023-11-28 08:10 | XRay Report ---
KUB HISTORY: Follow-up small bowel obstruction. COMPARISON: KUB 11/25/2023. FINDINGS: Nasogastric tube terminates in the stomach. Surgical clips along the right side of the abdo men. Right femoral catheter is noted. Rectal thermometer and Edwards catheter are also seen within the deep pelvis. No renal calculi. No ureteral calculi. No pneumoperitoneum or pneumatosis. Dilated gas- filled loops of large and small bowel have improved in the interval. IMPRESSION: 1. Dilated loops of large and small bowel have improved in the interval. 2. Lines and tubes as above. ACT 112: Negative or not required by law. Electronically signed by: Maynor Augustin M.D. 11/28/2023 8:08 AM
--- NOTE | 2023-11-28 10:30 | Surgery Progress Note ---
Date of Service November 28, 2023 Assessment & Plan (1) Small bowel obstruction: Plan: imaging looks better abd exam much better would keep OGT until extubated. ok to slowly start feeds via tube. would check residuals q4 hours for awhile to make sure he is tolerating will continue to follow (2) Current long-term use of 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 medication with history of deep venous thrombosis (DVT): (3) Chronic liver disease: Admission and Anticipated Discharge Date Admission Date: November 23, 2023 Subjective pt seen. still sedated on vent. Physical Exam Physical Exam: sedated on vent abdomen much less distended. soft. +RUQ hernia present. Results & Data Vital Signs (Past 12 Hours) Vital Signs Pulse Resp BP Pulse Ox FiO2 11/28/23 09:30 85 16 98 11/28/23 09:00 101/59 L 11/28/23 09:00 86 16 98 11/28/23 08:30 89 20 99 11/28/23 08:00 95 H 23 97 11/28/23 08:00 115/62 11/28/23 08:00 40 11/28/23 08:00 85 11/28/23 07:45 114 H 24 92 50 11/28/23 07:30 136/87 11/28/23 07:30 106 H 31 H 91 11/28/23 07:01 98 H 20 89 L 11/28/23 07:01 147/107 H 11/28/23 07:00 103 H 19 88 L 11/28/23 06:30 106/60 11/28/23 06:30 87 20 96 11/28/23 06:00 88 20 96 11/28/23 06:00 111/61 11/28/23 05:50 88 20 96 11/28/23 05:40 90 20 96 11/28/23 05:30 91 H 22 96 11/28/23 05:30 112/63 11/28/23 05:20 90 21 95 11/28/23 05:10 90 21 96 11/28/23 05:00 118/63 11/28/23 05:00 93 H 20 93 11/28/23 04:50 92 H 20 96 11/28/23 04:40 93 H 19 95 11/28/23 04:30 92 H 21 96 11/28/23 04:30 112/62 11/28/23 04:30 92 H 23 96 30 11/28/23 04:20 96 H 20 94 11/28/23 04:10 94 H 22 95 11/28/23 04:00 95 H 22 95 11/28/23 04:00 123/67 11/28/23 04:00 103 H 135/75 11/28/23 04:00 30 11/28/23 03:50 94 H 24 95 11/28/23 03:40 94 H 21 96 11/28/23 03:30 95 H 23 96 11/28/23 03:30 111/62 11/28/23 03:20 95 H 24 91 11/28/23 03:10 96 H 18 95 11/28/23 03:00 133/75 11/28/23 03:00 99 H 27 H 95 11/28/23 02:50 97 H 20 95 11/28/23 02:40 97 H 21 95 11/28/23 02:30 97 H 20 95 11/28/23 02:30 118/62 11/28/23 02:20 96 H 21 95 11/28/23 02:10 97 H 20 95 11/28/23 02:05 96 H 22 96 11/28/23 01:30 95 H 22 98 11/28/23 01:30 110/61 11/28/23 01:20 95 H 21 97 11/28/23 01:10 96 H 22 97 11/28/23 01:00 103 H 27 H 93 11/28/23 01:00 135/75 11/28/23 00:50 97 H 20 97 11/28/23 00:40 97 H 21 97 11/28/23 00:30 108/59 L 11/28/23 00:30 98 H 22 97 11/28/23 00:20 97 H 22 96 11/28/23 00:10 99 H 20 96 11/28/23 00:00 98 H 21 96 11/28/23 00:00 111/57 L 11/28/23 00:00 40 11/27/23 23:55 99 H 22 96 40 11/27/23 23:50 100 H 23 96 11/27/23 23:40 98 H 22 96 11/27/23 23:30 108/59 L 11/27/23 23:30 99 H 22 97 11/27/23 23:20 100 H 23 96 04//24 23:10 100 H 20 96 11/27/23 23:00 101 H 22 96 11/27/23 23:00 115/59 L 11/27/23 22:50 101 H 24 96 11/27/23 22:40 100 H 22 96 11/27/23 22:30 103 H 22 90 11/27/23 22:30 125/60 PG Care Time/CCT Total # of Minutes Spent Total Time Spent with Patient: Total time spent is greater than 50% in coordination of care (as documented) at patient's floor/unit and/or counseling patient: Coding Level of Care Code 67715 SUB INP/OBS CARE 08/29MIN Diagnoses Small bowel obstruction K56.609 Current long-term use of 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 medication with history of deep venous thrombosis (DVT) Z86.718; Z79.01 Chronic liver disease K76.9
[2023-11-28] MEDS: LANTUS PER UNIT CHARGE SQ STA (11:27)
[2023-11-28 11:31] LABS: ANTI-Xa, UFH(UnfractionatedHep 0.17 IU/ml (0.3-0.7)
[2023-11-28] MEDS: HEPARIN SOD (PORCINE) 1000 UNIT/ML IV ONE (12:15)
[2023-11-28] MEDS: cefTRIAXone SODIUM 2,000 MG in DEXTROSE 5 % MINI-B 50 ML IV SCH (12:19)
--- NOTE | 2023-11-28 15:00 | Hospitalist Progress Note ---
Date of Service November 28, 2023 Assessment & Plan (1) Fall: (2) Closed T8 spinal fracture: (3) Nasal bone fracture: (4) Supratherapeutic INR: (5) Seizure disorder: (6) Current long-term use of 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 medication with history of deep venous thrombosis (DVT): (7) T2DM (type 2 diabetes mellitus): (8) HLD (hyperlipidemia): (9) Lymphedema: Plan 63yo M with a PMH of DM II, dyslipidemia, venous insufficiency, history of liver failure, BPH, DVT in 2011 on coumadin, venous insufficiency, history of generalized convulsive epilepsy, history of a solitary kidney and other medical problems listed below who presents from home after a fall. He is being managed for the following: Likely metabolic vs Hepatic encephalopathy: NH3 elevated iso sbo, now improving Small bowel obstruction Fever: ? Pulmonary origin, MRSA screen neg. Severe sepsis with shock: Likely secondary to pneumonia, currently needing pressor support Patient had a code purple 11/25 AM, was hypoxic/altered/vomiting --> intubated 11/25 and transferred to ICU. CT head with no acute finding. CT abdomen pelvis with findings suggestive of SBO and lower lung consolidation suggestive of pneumonia or aspiration pneumonitis. CT chest suggestive of extensive bilateral lower lobe consolidation, pneumonia versus aspiration pneumonitis. BAL Cx positive of K. pneumoniae Patient is intubated, being managed in ICU. Currently needing pressor support and is febrile General surgery on board, appreciate recommendation. Gastric tube for decompression. Abd exam improving, Repeat KUB XR reassuring. Patient started on Zosyn 11/25. ---to rocephin 11/27 due to cx results. IVF and GI px. Lactulose pr. Abnormal EKG/? Chest pain: Rule out ACS, discussed with cardiology 11/25, echo without regional wall motion abnormality. Continue telemetry monitoring, cardio evaled appreciate recs. mild trop elevation noted likely 2/2 acute illness. Mechanical Fall Closed T8 spinal fracture Lumbar spine CT with oblique fracture through the anterior body of T8 which extends through the inferior endplate and likely involves the T8-T9 disc space. This fracture may be unstable. Mild prevertebral edema/hemorrhage is seen at the T8 level [facility] evaluated-mobilization with physical therapy, not an area of spine amenable to bracing. No bending/lifting or twisting, good body mechanics and posture Pain control, aggressive bowel regimen. Follow closely for bowel movements. Fall precautions PT/OT Likely need for rehab - patient has ambulatory dysfunction at baseline as well as deconditioning from previous hospitalization Nasal bone fractures No acute bleeding Continue ice, pain control Discussed with [facility] 11/24 no indication for surgery for now, follow-up with [facility] as an outpatient. Okay to resume his anticoagulation. Supratherapeutic INR : resolved. 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 : Remote history . anticoagulation Uncontrolled DM II HbA1c 10.5 in Aug , A1c better this admission Hold home agents Basal/bolus insulin per protocol while in-patient BSG AC HS Seizure disorder Continue home Depakote, Dilantin and topiramate BLE neuropathy Gabapentin dose recently changed to 100mg TID BPH On Flomax and Proscar Bladder scan PRN Chronic lymphedema Chronic Venous insufficiency No open wounds Continue home Lasix Monitor for volume overload Gout Continue allopurinol Solitary kidney As per records DVT Ppx: Hep drip Code status: FULL PCP: Cruz Dispo: Admitted to med/surg Admission and Anticipated Discharge Date Admission Date: November 23, 2023 Subjective Patient was seen and examined at bedside. Patient was lying in bed, intubated, mechanically ventilated, sedated, requiring pressor support. Per RN, patient has no bowel, no new acute events overnight. Physical Exam Physical Exam: GENERAL: Intubated, sedated, undergoing cpap trial. HEENT: No pallor, no icterus. Pupils equal, round and reactive to light. Oral mucosa dry. NECK: No JVD, no neck masses. nasal bridge swelling. HEART: S1 and S2 heard. Regular rate and rhythm. No murmur, no gallop. RESPIRATORY SYSTEM: Normal AP diameter. No accessory muscle use. No wheezing, occasional bilateral crackles. spontaneous breathing trial on progress. ABDOMEN: Distention, tenderness N/A, decreased bowel sounds CENTRAL NERVOUS SYSTEM: No facial droop. Obeys simple commands. Moves extremities. EXTREMITIES: chronic lymphedema, no erythema seen. Results & Data Results & Data Vital Signs (Past 12 Hours) Vital Signs Pulse Resp BP Pulse Ox O2 Del Method FiO2 11/28/23 10:30 87 17 98 40 11/28/23 09:30 85 16 98 11/28/23 09:00 101/59 L 11/28/23 09:00 86 16 98 11/28/23 08:30 89 20 99 11/28/23 08:00 95 H 23 97 11/28/23 08:00 115/62 11/28/23 08:00 40 11/28/23 08:00 85 11/28/23 07:45 114 H 24 92 50 11/28/23 07:30 Mechanical Vent 40 11/28/23 07:30 136/87 11/28/23 07:30 106 H 31 H 91 11/28/23 07:01 98 H 20 89 L 11/28/23 07:01 147/107 H 11/28/23 07:00 103 H 19 88 L 11/28/23 06:30 106/60 11/28/23 06:30 87 20 96 11/28/23 06:00 88 20 96 11/28/23 06:00 111/61 11/28/23 05:50 88 20 96 11/28/23 05:40 90 20 96 11/28/23 05:30 91 H 22 96 11/28/23 05:30 112/63 11/28/23 05:20 90 21 95 11/28/23 05:10 90 21 96 11/28/23 05:00 118/63 11/28/23 05:00 93 H 20 93 24 04:50 92 H 20 96 11/28/23 04:40 93 H 19 95 11/28/23 04:30 92 H 21 96 11/28/23 04:30 112/62 11/28/23 04:30 92 H 23 96 30 24 04:20 96 H 20 94 11/28/23 04:10 94 H 22 95 24 04:00 95 H 22 95 11/28/23 04:00 123/67 11/28/23 04:00 103 H 135/75 24 04:00 30 24 03:50 94 H 24 95 24 03:40 94 H 21 96 24 03:30 95 H 23 96 24 03:30 111/62 11/27/24 03:20 95 H 24 91 24 03:10 96 H 18 95 11/27/24 03:00 133/75 24 03:00 99 H 27 H 95
--- NOTE | 2023-11-28 15:20 | Pharmacy Report ---
Pharmacy Glycemic Short Note 2 - Date of Service November 28, 2023 - Glycemic Short BSG Results (Last 24 hours): 11/27/23 11/27/23 11/27/23 16:01 17:39 18:41 Glucose POC Glucose (other) 108 H 104 H 109 H 11/28/23 11/28/23 11/28/23 03:43 03:45 07:52 Glucose 206 H POC Glucose (other) 205 H 218 H 11/28/23 12:08 Glucose POC Glucose (other) 208 H OUTPATIENT ANTIDIABETIC REGIMEN: * Glipizide 10 mg PO BIDM * Tradjenta 5 mg PO daily * HbA1c: 7.5% (11/24/23) ASSESSMENT: 11/27: * Insulin infusion was d/c'd overnight by provider and 20 units of lantus was administered. Subsequent BSGs 206-218-208 mg/dL. * Discussed with multidisciplinary team, will trial coverage off of insulin drip with basal bolus as pressor needs anticipated to decrease. * TFs initiated today at a trickle rate. Severe existing infusion contain dextrose (norepinephrine, heparin, and VPA). 11/25 * 63 yo M admitted on 11/23/23 secondary to a fall. Patient aspirated on the morning of 11/26/23 and required intubation and transfer to the ICU. Pharmacy has been consulted to assist with inpatient glycemic management. Patient is a Type 2 diabetic as an outpatient. Please refer to outpatient regimen and most recent HbA1c above. * Eliseo was receiving 40 units of basal per day since admission with Novolog based on weight/stress of ~2 with adequate glycemic control. * Stressors have now changed significantly as patient is intubated and sedated. Ordered norepinephrine, vasopressin, fentanyl, propofol and heparin drips. Zosyn added for aspiration coverage. nt potassium was 3.7 mg/dL and is being replaced IV. * No insulin received yet today. Will d/c basal + bolus and start patient on insulin drip based on high stress and most recent BSG of 266 mg/dL. This will provide a 4 unit bolus followed by drip at a rate of 3.8 units/hr. Goal range is 110-180 mg/dL. Most rece * Will not transition patient off drip until clinical status improved and patient ready to be extubated. Will consider adding basal insulin tomorrow if patient improving. PLAN FOR INPATIENT GLYCEMIC CONTROL: * Hold outpatient oral diabetes medications * Basal insulin * lantus 20 units this morning * Lantus scale this evening (0,10,20 based on BSG- See MAR for details) * Bolus insulin * NovoLog per scale ACHS or Q6hrs while NPO * Goal Range: Low 110 mg/dL - High 140 mg/dL * Correction Factor: 20 mg/dL/unit * Nutritional / Prandial insulin per carb ratio of 1 unit per 8 grams CHO consumed
--- NOTE | 2023-11-28 16:24 | Cardiology Progress Note ---
Date of Service November 28, 2023 Assessment & Plan (1) Acute hypoxic respiratory failure: (2) Abnormal EKG: (3) Small bowel obstruction: (4) Closed T8 spinal fracture: Plan Patient with sepsis syndrome with multilobar pneumonia likely due to aspiration and small bowel obstruction Patient with mild troponin elevation due to myocardial strain in the setting of systemic illness. Troponin trending down. Repolarization abnormalities noted on EKG on 11/26/2023 have resolved. Hyperdynamic left ventricular systolic function noted on echo. Continue supportive care. Already on heparin related to history of DVT. Orogastric tube in place given small bowel obstruction. Input from the surgery team noted and appreciated. Patient now on ceftriaxone. Blood cultures negative thus far. Klebsiella pneumoniae noted on sputum aspirate. DVT prophylaxis: Remains on heparin infusion. Admission and Anticipated Discharge Date Admission Date: November 23, 2023 Subjective Patient seen in cardiology follow-up. Remains sedated on the ventilator. Temperature has improved to a mild degree. He remains on norepinephrine for blood pressure support. Telemetry reveals sinus rhythm in the 90s. Review of Systems Review of Systems: Unobtainable due to endotracheal tube Physical Exam Constitutional: + acute distress and + ill appearing Respiratory: + respiratory distress and + labored slywia athing Auscultation: + diminished lung sounds Cardiovascular: Rate/Rhythm: regular rate, regular rhythm and + tachycardic Heart Sounds: no murmur Vessels: no JVD Extremities: no edema Gastrointestinal (Abdomen): Inspection/Auscultation: + abdomen distended (Evidence of ventral hernia) Results & Data Vital Signs (Past 12 Hours) Vital Signs Pulse Resp BP Pulse Ox O2 Del Method FiO2 11/28/23 15:12 94 H 21 96 30 11/28/23 10:30 87 17 98 40 11/28/23 09:30 85 16 98 11/28/23 09:00 101/59 L 11/28/23 09:00 86 16 98 11/28/23 08:30 89 20 99 11/28/23 08:00 95 H 23 97 11/28/23 08:00 115/62 11/28/23 08:00 40 11/28/23 08:00 85 11/28/23 07:45 114 H 24 92 50 11/28/23 07:30 Mechanical Vent 40 11/28/23 07:30 136/87 11/28/23 07:30 106 H 31 H 91 11/28/23 07:01 98 H 20 89 L 11/28/23 07:01 147/107 H 11/28/23 07:00 103 H 19 88 L 11/28/23 06:30 106/60 11/28/23 06:30 87 20 96 11/28/23 06:00 88 20 96 11/28/23 06:00 111/61 11/28/23 05:50 88 20 96 11/28/23 05:40 90 20 96 11/28/23 05:30 91 H 22 96 11/28/23 05:30 112/63 11/28/23 05:20 90 21 95 11/28/23 05:10 90 21 96 11/28/23 05:00 118/63 11/28/23 05:00 93 H 20 93 11/28/23 04:50 92 H 20 96 11/28/23 04:40 93 H 19 95 11/28/23 04:30 92 H 21 96 11/28/23 04:30 112/62 11/28/23 04:30 92 H 23 96 30 11/28/23 04:20 96 H 20 94 Laboratory Results Coagulation 11/28/23 Range/Units 03:44 PT 11.7 (9.0-12.0) Seconds CBC 11/28/23 Range/Units 03:45 WBC 11.57 H (4.8-10.8) K/ul RBC 3.53 L (4.70-6.10) M/uL Hgb 12.1 L (14.0-18.0) g/dl Hct 35.6 L (42.0-52.0) % Plt Count 127 L (130-400) K/uL Neut # (Auto) 8.63 H (1.40-6.50) K/uL Lymph # (Auto) 1.18 L (1.20-3.40) K/uL [place] # (Auto) 1.35 H (0.11-0.59) K/uL Eos # (Auto) 0.30 (0.00-0.50) K/uL Baso # (Auto) 0.05 (0.00-0.20) K/uL Comprehensive Metabolic Panel 11/28/23 Range/Units 03:45 Sodium 134 L (136-145) mmol/L Potassium 4.0 (3.5-5.1) mmol/L Chloride 107 (98-107) mmol/L Carbon Dioxide 17 L (21-32) mmol/L BUN 25 H (6-23) mg/dl Creatinine 1.04 (0.6-1.4) mg/dl Glucose 206 H (70-99(Fasting)) mg/dl Calcium 7.4 L (8.6-10.3) mg/dl Intake and Output 11/28/23 11/28/23 11/28/23 06:59 14:59 22:59 Intake Total 1939.370 / 4419.451 1162.570 / 1162.570 Output Total 700 / 1040 Balance 1239.370 / 3379.451 1162.570 / 1162.570 Intake: IV 1939.370 / 4419.451 1162.570 / 1162.570 Fosphenytoin 400 mgpe In Sodium 58 / 58 Chloride 0.9% 50 ml @ 116 mls/ hr IV BID [facility] Rx#:[id number] Heparin Sodium/Dextrose 25,000 180.6 / 376.033 210.0 / 210.0 units In 500 ml @ 1,400 UNITS/ HR 28 mls/hr IV .[id number] [facility] Rx #:[id number] Magnesium Sulfate / D5w 1 gm In 200 / 200 100 ml @ 50 mls/hr IV ONE ONE Rx#:[id number] Norepinephrine/D5w 4 mg In 250 249.588 / 837.567 224.453 / 224.453 ml @ 0.1 MCG/KG/MIN 38.25 mls/ hr IV .Q6H33M [facility] Rx#:[id number] Piperacillin/Tazobactam 4.5 gm 100 / 300 100 / 100 In Dextrose 5% Mini-B 100 ml @ 25 mls/hr IV Q8H [facility] Rx#: [id number] Sodium Chloride 0.9% 1,000 ml @ 1000 / 1548.75 75 mls/hr IV .[id number] [facility] Rx#: [id number] Valproate Sod 500 mg In 110 / 275 55 / 55 Dextrose 5% 50 ml @ 55 mls/hr IV Q6 [facility] Rx#:[id number] cefTRIAXone SODIUM 2,000 mg In 50 / 50 Dextrose 5 % Mini-B 50 ml @ 100 mls/hr IV Q24H [facility] Rx#: [id number] fentaNYL citrate 2,500 mcg In 109.792 / 324.376 82.667 / 82.667 250 ml @ 125 MCG/HR 12.5 mls/hr IV .Q20H [facility] Rx#:[id number] propofoL 1,000 mg In 100 ml @ 189.390 / 381.133 182.450 / 182.450 35 MCG/KG/MIN 21.42 mls/hr IV . Q4H41M [facility] Rx#:[id number] Output: Urine Amount (Catheter) 700 / 940 Edwarsd/Indwelling 700 / 940 Other: Weight 124.5 kg 124.5 kg Weight Measurement Method Built in [facility] Patient Weight 11/29/23 06:59 Weight 124.5 kg
[2023-11-28] MEDS: PEPTAMEN INTENSE VHP 1.0 CAL 1,000 ML BAG OG SCH (16:37)
[2023-11-28 19:24] LABS: ANTI-Xa, UFH(UnfractionatedHep 0.36 IU/ml (0.3-0.7)
[2023-11-28] MEDS: TUBE FEEDING WATER FLUSH OG SCH (19:30)
[2023-11-28] MEDS: LANTUS PER UNIT CHARGE SQ ONE (20:11)
[2023-11-28] MEDS: FUROSEMIDE INJ 20 MG/2 ML VIAL IV ONE (21:43)
[2023-11-29 04:42] LABS: Basophils # (auto) 0.04 K/uL (0.00-0.20); Basophils % (auto) 0.3 %; Eosinophils # (auto) 0.49 K/uL (0.00-0.50); Eosinophils % (auto) 4.3 %; Hematocrit (blood only) 35.8 % (42.0-52.0); Hemoglobin 12.4 g/dl (14.0-18.0); Immature Granulocytes # (auto) 0.09 K/uL (0.01-0.20); Immature Granulocytes % (auto) 0.8 %; Lymphocytes # (auto) 1.11 K/uL (1.20-3.40); Lymphocytes % (auto) 9.7 %; Mean Corpuscular Hemoglobin 34.1 pg (25.0-34.0); Mean Corpuscular Hgb Conc 34.6 g/dL (32.0-36.0); Mean Corpuscular Volume 98.4 fL (80.0-100.0); Monocytes # (auto) 1.22 K/uL (0.11-0.59); Monocytes % (auto) 10.6 %; Neutrophils # (auto) 8.52 K/uL (1.40-6.50); Neutrophils % (auto) 74.3 %; Platelet Count 126 K/uL (130-400); RDW Coefficient of Variation 15.1 % (11.5-14.5); RDW Standard Deviation 55.1 fL (36.4-46.3); Red Blood Count 3.64 M/uL (4.70-6.10); White Blood Count 11.47 K/ul (4.8-10.8)
[2023-11-29 04:52] LABS: BUN Creatinine Ratio 23.1 (10-20); Calcium 7.3 mg/dl (8.6-10.3); Creatinine Clr Calc Pharmacy 97.9 ml/min; Est GFR (African American) 86.9 ml/min; Magnesium 2.2 mg/dl (1.7-2.4); Phosphorus 3.4 mg/dl (2.5-4.9); Potassium 4.1 mmol/L (3.5-5.1)
[2023-11-29 04:53] LABS: Albumin Level 2.8 gm/dl (3.4-5.0); Bilirubin Direct 0.3 mg/dl (0-0.2); Bilirubin,Total 0.5 mg/dl (0.2-1.0); Total Protein 5.7 gm/dl (6.0-8.3)
[2023-11-29 05:04] LABS: ANTI-Xa, UFH(UnfractionatedHep 0.39 IU/ml (0.3-0.7); Prothrombin Time 10.6 Seconds (9.0-12.0)
--- NOTE | 2023-11-29 07:33 | Critical Care Progress Note ---
Date of Service November 29, 2023 Assessment & Plan (1) Fall: (2) Closed T8 spinal fracture: (3) Nasal bone fracture: (4) Supratherapeutic INR: (5) Seizure disorder: (6) Current long-term use of 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 medication with history of deep venous thrombosis (DVT): (7) T2DM (type 2 diabetes mellitus): (8) HLD (hyperlipidemia): (9) Lymphedema: (10) Hepatic encephalopathy: (11) Acute hypoxic respiratory failure: Plan 63-year-old male was admitted to the hospital for fall, transferred to ICU for ventilatory failure and septic shock Past medical history: Diabetes type 2, dyslipidemia, history of liver failure, BPH, DVT in 2001 on Coumadin, seizure disorder. Neuro: -- Metabolic encephalopathy Multifactorial Hyperammonia from underlying seizure medications Severe sepsis with septic shock CT head negative for any acute findings on 11/23/2023 -- Epilepsy Home antiepileptic regimen consists of Depakote, Dilantin, and Topama. Hold Topamax. Cardiac: -- Septic shock Likely secondary to multilobar pneumonia as well as SBO Continue with antibiotics Continue vasopressor support to keep MAP greater than 65 --Elevated troponin Likely type II WI Tropes are trending down 2D echo 11/26/2023: EF 55 to 70%, RV is not visualized EKG 11/26/2023 after Intubation: Sinus tachycardia, ST depressions on the lateral leads. No ST elevations Resp: -- VDRF Secondary to acute hypoxic respiratory failure from multilobar pneumonia likely from aspiration Continue with ventilatory support Keep RASS -1 Daily sedation holidays and SBT's GI: -- Small bowel obstruction Continue with OG tube Surgery on board Renal: -- Monitor BUNs/creatinine Avoid nephrotoxic medications --History of right-sided nephrectomy : Strict I/Os Endo: ICU hyperglycemia protocol, blood glucose checks, maintain euglycemia Heme: --Thrombocytopenia Acute on chronic Continue to trend especially given the patient is on heparin -- monitor H&H ID: -- Multilobar pneumonia Continue with antibiotics Nasal MRSA negative Pro-Andrew negative Sputum culture growing Klebsiella which is resistant to Zosyn, antibiotic changed to Rocephin 11/28/2023 Follow-up blood culture --Prophylaxis VTE: Heparin drip resumed 11/27/23 GI: Pepcid Lines: Right femoral, right radial, positive Edwards, positive ETT Diet: Tube feeds Plan: In/out: +13 mL, urine output 2900 Will give another 20 mg of Lasix today. Sputum culture is growing Klebsiella which is resistant to Zosyn, antibiotic changed to Rocephin and will complete the course for 7 days Pressure supported trial of extubation today. The patient is successfully extubated OGT will be removed. NGT cannot be placed given the patient has nasal fractures. Ammonia level is only 80. Valproic acid level is 48 which is just below the reference range Surgery on board I have personally spent 38 minutes of critical care time in the direct management of this patient. This is a life/limb threatening event. This includes time spent evaluating patient, direct bedside care, chart review, placing orders, interpretation of diagnostic studies, discussion with consultants, patient, and/or family members regarding treatment decisions, as well as other required patient management activities. This time is exclusive of all separately billable procedures, and teaching time and separate from and in addition to any other critical care service time. Intubation: Admission and Anticipated Discharge Date Admission Date: November 23, 2023 Subjective Patient seen and examined at bedside. No acute distress, no adverse events overnight Able to 0.04 of Levophed, 30 of propofol 125 fentanyl at the time of examination He was breathing with the vent. I went down on the sedation and he started to breathe over the vent. Still spiking low-grade fever. Able to according blanket. Review of Systems 2 Review of Systems: All systems reviewed & are unremarkable except as noted in Subjective Physical Exam 2 Physical Exam: Constitutional: No acute distress HEENT: PERRLA, left-sided periorbital hematoma, deformed nasal septum Respiratory system: Decreased air entry bilaterally, no wheeze, no rhonchi, positive crackles bilaterally CVS: S1-S2 positive, no murmurs or gallops Abdomen: Right upper quadrant scar, soft, nondistended, reducible epigastric hernia, no rebound, decreased bowel sounds Extremities: +2 pulses bilaterally radialis/ dorsalis pedis, no cyanosis, +1 pitting edema bilateral lower extremity Neuro: Sedated, RASS -2 Psych: Unable to assess G/U: Positive Edwards Musculoskeletal: Severe cervical kyphosis Skin: no rashes, warm and dry Lymphatic: no cervical or axillary lymphadenopathy Results & Data Results & Data Vital Signs (Past 12 Hours) Vital Signs Pulse Resp BP Pulse Ox O2 Del Method FiO2 11/29/23 04:00 30 11/29/23 03:40 84 20 99 11/29/23 03:30 83 20 100 11/29/23 03:21 86 24 98 30 11/29/23 03:20 84 25 H 100 11/29/23 03:10 84 19 100 11/29/23 03:00 117/60 11/29/23 03:00 84 23 100 11/29/23 02:50 82 20 99 11/29/23 02:40 87 20 97 11/29/23 02:30 92 H 21 97 11/29/23 02:20 80 20 100 11/29/23 02:10 80 21 100 11/29/23 02:00 108/63 11/29/23 02:00 79 20 100 11/29/23 01:50 80 20 100 11/29/23 01:40 79 20 100 11/29/23 01:30 80 20 100 11/29/23 01:20 80 20 100 11/29/23 01:11 83 20 100 11/29/23 01:00 81 20 100 11/29/23 01:00 111/61 11/29/23 00:50 82 20 100 11/29/23 00:40 82 20 100 11/29/23 00:30 83 20 100 11/29/23 00:20 84 20 99 11/29/23 00:10 83 20 100 11/29/23 00:10 86 21 100 30 11/29/23 00:00 123/67 11/29/23 00:00 86 20 100 11/29/23 00:00 80 11/29/23 00:00 30 11/28/23 23:50 85 20 100 11/28/23 23:40 87 20 100 11/28/23 23:30 81 20 100 11/28/23 23:20 80 20 100 11/28/23 23:10 80 20 100 11/28/23 23:00 83 20 100 11/28/23 23:00 132/72 11/28/23 22:50 78 20 100 11/28/23 22:40 78 20 100 11/28/23 22:30 78 20 100 11/28/23 22:20 77 20 99 11/28/23 22:10 77 20 98 11/28/23 22:00 112/67 04/25/24 22:00 77 20 98 11/28/23 21:50 77 20 98 11/28/23 21:40 77 20 97 11/28/23 21:30 78 20 97 11/28/23 21:20 79 20 97 11/28/23 21:10 79 19 97 11/28/23 21:00 109/59 L 11/28/23 21:00 81 20 97 11/28/23 20:50 80 20 97 11/28/23 20:40 82 20 97 11/28/23 20:34 83 21 97 30 11/28/23 20:30 83 20 97 11/28/23 20:20 84 21 98 11/28/23 20:10 81 20 97 11/28/23 20:00 Mechanical Vent 30 11/28/23 20:00 30 11/28/23 20:00 80 11/28/23 20:00 82 20 97 11/28/23 20:00 116/63 11/28/23 19:50 82 20 98 11/28/23 19:40 83 15 97 Laboratory Results 11/29/23 04:22 11/29/23 04:22 Coding Level of Care Code 33812 CRITICAL CARE 1ST 30-74M Diagnoses Fall W19.XXXA Closed T8 spinal fracture S22.069A Nasal bone fracture S02.2XXA Supratherapeutic INR R79.1 Seizure disorder G40.909 Current long-term use of 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 medication with history of deep venous thrombosis (DVT) Z86.718; Z79.01 T2DM (type 2 diabetes mellitus) E11.9 HLD (hyperlipidemia) E78.5 Lymphedema I89.0 Hepatic encephalopathy K76.82 Acute hypoxic respiratory failure J96.01
--- NOTE | 2023-11-29 08:39 | Surgery Progress Note ---
Date of Service November 29, 2023 Assessment & Plan (1) Small bowel obstruction: Plan: likely ileus. improved weaning to extubate today no surgical indications currently. will follow along from periphery. Admission and Anticipated Discharge Date Admission Date: November 23, 2023 Subjective pt seen. still intubated. Physical Exam Physical Exam: sedated on vent abd: unchanged from yesterday soft. hernia unchanged. rupesh tube feeds at 10 cc/hr Results & Data Vital Signs (Past 12 Hours) Vital Signs Pulse Resp BP Pulse Ox FiO2 11/29/23 04:00 30 11/29/23 03:40 84 20 99 11/29/23 03:30 83 20 100 11/29/23 03:21 86 24 98 30 11/29/23 03:20 84 25 H 100 11/29/23 03:10 84 19 100 11/29/23 03:00 117/60 11/29/23 03:00 84 23 100 11/29/23 02:50 82 20 99 11/29/23 02:40 87 20 97 11/29/23 02:30 92 H 21 97 11/29/23 02:20 80 20 100 11/29/23 02:10 80 21 100 11/29/23 02:00 108/63 11/29/23 02:00 79 20 100 11/29/23 01:50 80 20 100 11/29/23 01:40 79 20 100 11/29/23 01:30 80 20 100 11/29/23 01:20 80 20 100 11/29/23 01:11 83 20 100 11/29/23 01:00 81 20 100 11/29/23 01:00 111/61 11/29/23 00:50 82 20 100 11/29/23 00:40 82 20 100 11/29/23 00:30 83 20 100 11/29/23 00:20 84 20 99 11/29/23 00:10 83 20 100 11/29/23 00:10 86 21 100 30 11/29/23 00:00 123/67 11/29/23 00:00 86 20 100 11/29/23 00:00 80 11/29/23 00:00 30 11/28/23 23:50 85 20 100 11/28/23 23:40 87 20 100 11/28/23 23:30 81 20 100 11/28/23 23:20 80 20 100 11/28/23 23:10 80 20 100 11/28/23 23:00 83 20 100 11/28/23 23:00 132/72 11/28/23 22:50 78 20 100 11/28/23 22:40 78 20 100 11/28/23 22:30 78 20 100 11/28/23 22:20 77 20 99 11/28/23 22:10 77 20 98 11/28/23 22:00 112/67 11/28/23 22:00 77 20 98 11/28/23 21:50 77 20 98 11/28/23 21:40 77 20 97 11/28/23 21:30 78 20 97 11/28/23 21:20 79 20 97 11/28/23 21:10 79 19 97 11/28/23 21:00 109/59 L 11/28/23 21:00 81 20 97 11/28/23 20:50 80 20 97 11/28/23 20:40 82 20 97 PG Care Time/CCT Total # of Minutes Spent Total Time Spent with Patient: Total time spent is greater than 50% in coordination of care (as documented) at patient's floor/unit and/or counseling patient: Coding Level of Care Code 60751 SUB INP/OBS CARE 2/35MIN Diagnoses Small bowel obstruction K56.609
[2023-11-29] MEDS ORDERED: STAT IV Infusion **Titration per Protocol STA (08:51)
[2023-11-29] MEDS: dexMEDEtomidine 200 MCG/50 ML BAG IV SCH (09:03)
[2023-11-29] MEDS: LANTUS PER UNIT CHARGE SQ SCH (10:26)
[2023-11-29] MEDS: FUROSEMIDE INJ 20 MG/2 ML VIAL IV ONE ×3 (10:59→20:37)
[2023-11-29] MEDS: HYDROmorphone INJ 0.5 MG/0.5 ML SYR IV STA (11:22)
--- NOTE | 2023-11-29 12:02 | Pharmacy Report ---
Pharmacy Glycemic Short Note 2 - Date of Service November 29, 2023 - Glycemic Short BSG Results (Last 24 hours): 11/28/23 11/28/23 11/28/23 12:08 16:17 19:53 Glucose POC Glucose POC Glucose (other) 208 H 151 H 179 H 11/28/23 11/29/23 11/29/23 23:56 04:22 04:27 Glucose 153 H POC Glucose POC Glucose (other) 178 H 148 H 11/29/23 11/29/23 08:28 11:05 Glucose POC Glucose 114 H 120 H POC Glucose (other) OUTPATIENT ANTIDIABETIC REGIMEN: * Glipizide 10 mg PO BIDM * Tradjenta 5 mg PO daily * HbA1c: 7.5% (11/24/23) ASSESSMENT: 11/28: * Patient received 38 units of insulin yesterday, 30 of which were basal. BSGs were [phone] mg/dL. Fasting BSG this morning was improved at 148 mg/dL. * Patient was extubated this morning and is no NPO. Will reduce basal insulin today. * Patient remains on some pressor support and a heparin drip. 11/27: * Insulin infusion was d/c'd overnight by provider and 20 units of lantus was administered. Subsequent BSGs 206-218-208 mg/dL. * Discussed with multidisciplinary team, will trial coverage off of insulin drip with basal bolus as pressor needs anticipated to decrease. * TFs initiated today at a trickle rate. Severe existing infusion contain dextrose (norepinephrine, heparin, and VPA). 11/25 * 63 yo M admitted on 11/23/23 secondary to a fall. Patient aspirated on the morning of 11/26/23 and required intubation and transfer to the ICU. Pharmacy has been consulted to assist with inpatient glycemic management. Patient is a Type 2 diabetic as an outpatient. Please refer to outpatient regimen and most recent HbA1c above. * Eliseo was receiving 40 units of basal per day since admission with Novolog based on weight/stress of ~2 with adequate glycemic control. * Stressors have now changed significantly as patient is intubated and sedated. Ordered norepinephrine, vasopressin, fentanyl, propofol and heparin drips. Zosyn added for aspiration coverage. nt potassium was 3.7 mg/dL and is being replaced IV. * No insulin received yet today. Will d/c basal + bolus and start patient on insulin drip based on high stress and most recent BSG of 266 mg/dL. This will provide a 4 unit bolus followed by drip at a rate of 3.8 units/hr. Goal range is 110-180 mg/dL. Most rece * Will not transition patient off drip until clinical status improved and patient ready to be extubated. Will consider adding basal insulin tomorrow if patient improving. PLAN FOR INPATIENT GLYCEMIC CONTROL: * Hold outpatient oral diabetes medications * Basal insulin * lantus 10 units this morning * Lantus scale this evening (0,10 based on BSG- See MAR for details) * Bolus insulin * NovoLog per scale ACHS or Q6hrs while NPO * Goal Range: Low 110 mg/dL - High 140 mg/dL * Correction Factor: 20 mg/dL/unit * Nutritional / Prandial insulin per carb ratio of 1 unit per 8 grams CHO consumed
[2023-11-29] MEDS: HYDROmorphone INJ 0.5 MG/0.5 ML SYR IV PRN (13:01)
--- NOTE | 2023-11-29 14:49 | Hospitalist Progress Note ---
Date of Service November 29, 2023 Assessment & Plan (1) Fall: (2) Closed T8 spinal fracture: (3) Nasal bone fracture: (4) Supratherapeutic INR: (5) Seizure disorder: (6) Current long-term use of 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 medication with history of deep venous thrombosis (DVT): (7) T2DM (type 2 diabetes mellitus): (8) HLD (hyperlipidemia): (9) Lymphedema: Plan 63yo M with a PMH of DM II, dyslipidemia, venous insufficiency, history of liver failure, BPH, DVT in 2011 on coumadin, venous insufficiency, history of generalized convulsive epilepsy, history of a solitary kidney and other medical problems listed below who presents from home after a fall. He is being managed for the following: Likely metabolic vs Hepatic encephalopathy: NH3 elevated iso sbo, now improving Small bowel obstruction Fever: Likely secondary to pneumonia Severe sepsis with shock: Likely secondary to pneumonia, currently needing pressor support Patient had a code purple 11/25 AM, was hypoxic/altered/vomiting --> intubated 11/25 and transferred to ICU. CT head with no acute finding. CT abdomen pelvis with findings suggestive of SBO and lower lung consolidation suggestive of pneumonia or aspiration pneumonitis. CT chest suggestive of extensive bilateral lower lobe consolidation, pneumonia versus aspiration pneumonitis. BAL Cx positive of K. pneumoniae; sensitive to ceftriaxone Patient extubated on 11/28; currently on sedationwean off as tolerated. Zosyn changed to ceftriaxone; continue to complete 7-day course Continue bowel rest; awaiting return of bowel function. Abnormal EKG/? Chest pain: Rule out ACS, discussed with cardiology 11/25, echo without regional wall motion abnormality. Continue telemetry monitoring; cardiology evaluated the patientno further intervention required at the moment. Mechanical Fall Closed T8 spinal fracture Lumbar spine CT with oblique fracture through the anterior body of T8 which extends through the inferior endplate and likely involves the T8-T9 disc space. This fracture may be unstable. Mild prevertebral edema/hemorrhage is seen at the T8 level [facility] evaluated on 11/23-mobilization with physical therapy, not an area of spine amenable to bracing. No bending/lifting or twisting, good body mechanics and posture Pain control, Fall precautions PT OT reordered Nasal bone fractures No acute bleeding Continue ice, pain control Discussed with [facility] 11/24 no indication for surgery for now, follow-up with [facility] as an outpatient. Okay to resume his anticoagulation. Supratherapeutic INR : resolved. Currently on heparin drip 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 : Remote history . anticoagulation. Currently on heparin drip. Uncontrolled DM II HbA1c 10.5 in Aug , A1c better this admission Hold home agents Basal/bolus insulin per protocol while in-patient BSG AC HS Seizure disorder Continue home Depakote, Dilantin and topiramate BLE neuropathy Gabapentin dose recently changed to 100mg TID BPH On Flomax and Proscar Bladder scan PRN Chronic lymphedema Chronic Venous insufficiency No open wounds Continue home Lasix Monitor for volume overload Gout Continue allopurinol Solitary kidney As per records DVT Ppx: Hep drip Code status: FULL PCP: [facility] Dispo: Currently in ICU. Time spent evaluating patient, direct bedside care, chart review, placing orders, interpretation of diagnostic studies, discussion with consultants, patient, and family members, as well as other required patient management activities is 55 minutes Please note the above document was generated using voice recognition software. It may contain grammatical, syntax or spelling errors. Any formal questions or concerns about the content, text or information contained within the body of this dictation should be directly addressed to the provider for clarification Admission and Anticipated Discharge Date Admission Date: November 23, 2023 Subjective Patient seen in ICU. He was extubated this morning and is on Oxymask. Currently sedated with Precedex No bowel movement yet Review of Systems Review of Systems: All systems reviewed & are unremarkable except as noted in Subjective Physical Exam Physical Exam: GENERAL: Appears lethargic; withdraws to pain currently on sedation. HEENT: No pallor, no icterus. Pupils equal, round and reactive to light. Oral mucosa dry. NECK: No JVD, no neck masses. nasal bridge swelling. HEART: S1 and S2 heard. Regular rate and rhythm. No murmur, no gallop. RESPIRATORY SYSTEM: Decreased breath sound at bases. ABDOMEN: Abdomen distended, nontender. CENTRAL NERVOUS SYSTEM: No facial droop. Obeys simple commands. Moves extremities. EXTREMITIES: chronic lymphedema, no erythema seen. Results & Data Results & Data Vital Signs (Past 12 Hours) Vital Signs Pulse Resp BP Pulse Ox FiO2 11/29/23 10:02 88 20 100 30 11/29/23 04:00 30 11/29/23 03:40 84 20 99 11/29/23 03:30 83 20 100 11/29/23 03:21 86 24 98 30 11/29/23 03:20 84 25 H 100 11/29/23 03:10 84 19 100 11/29/23 03:00 117/60 11/29/23 03:00 84 23 100 11/29/23 02:50 82 20 99
--- NOTE | 2023-11-29 15:40 | Cardiology Progress Note ---
Date of Service November 29, 2023 Assessment & Plan (1) Acute hypoxic respiratory failure: (2) Abnormal EKG: (3) Small bowel obstruction: (4) Closed T8 spinal fracture: Plan Patient with sepsis syndrome with multilobar pneumonia likely due to aspiration and small bowel obstruction Patient with mild troponin elevation due to myocardial strain in the setting of systemic illness. Troponin trended down with after stabilization from an airway standpoint. Repolarization abnormalities noted on EKG on 11/26/2023 resolved subsequently. Hyperdynamic left ventricular systolic function noted on echo. Continue supportive care. Already on heparin related to history of DVT. Continue antibiotics as per primary team. Cardiology to sign off. Please call with questions or concerns. DVT prophylaxis: Remains on heparin infusion. Admission and Anticipated Discharge Date Admission Date: November 23, 2023 Subjective Patient seen in cardiology follow-up. He was extubated today and is off pressors. Sinus tachycardia 114 bpm present on telemetry. Patient with some degree of agitation, and is unable to answer questions appropriately at present. He remains febrile. Review of Systems Review of Systems: Unobtainable due to reduced consciousness Physical Exam Constitutional: + ill appearing Respiratory: Auscultation: + diminished lung sounds Cardiovascular: Rate/Rhythm: regular rate and + tachycardic Extremities: + edema (1-2+ edema) Gastrointestinal (Abdomen): normal bowel sounds, soft, nontender, no hepatosplenomegaly Neurologic: Patient noted, spontaneously moving all 4 extremities. Results & Data Vital Signs (Past 12 Hours) Vital Signs Pulse Resp Pulse Ox FiO2 11/29/23 10:02 88 20 100 30 11/29/23 04:00 30 11/29/23 03:40 84 20 99
[2023-11-30] MEDS: ACETAMINOPHEN 1,000 MG/100 ML VIAL IV PRN (01:04)
[2023-11-30 04:42] LABS: Basophils # (auto) 0.03 K/uL (0.00-0.20); Basophils % (auto) 0.3 %; Eosinophils # (auto) 0.21 K/uL (0.00-0.50); Eosinophils % (auto) 2.4 %; Hematocrit (blood only) 33.8 % (42.0-52.0); Hemoglobin 11.7 g/dl (14.0-18.0); Immature Granulocytes # (auto) 0.13 K/uL (0.01-0.20); Immature Granulocytes % (auto) 1.5 %; Lymphocytes # (auto) 1.21 K/uL (1.20-3.40); Lymphocytes % (auto) 13.6 %; Mean Corpuscular Hemoglobin 33.6 pg (25.0-34.0); Mean Corpuscular Hgb Conc 34.6 g/dL (32.0-36.0); Mean Corpuscular Volume 97.1 fL (80.0-100.0); Mean Platelet Volume 9.9 fL (9.4-12.4); Monocytes # (auto) 1.18 K/uL (0.11-0.59); Monocytes % (auto) 13.2 %; Neutrophils # (auto) 6.15 K/uL (1.40-6.50); Platelet Count 115 K/uL (130-400); RDW Coefficient of Variation 14.6 % (11.5-14.5); RDW Standard Deviation 52.4 fL (36.4-46.3); Red Blood Count 3.48 M/uL (4.70-6.10); White Blood Count 8.91 K/ul (4.8-10.8)
[2023-11-30 05:01] LABS: BUN Creatinine Ratio 26.4 (10-20); Est GFR (African American) 102.1 ml/min; Est GFR (Non-African American) 88.1 ml/min; Magnesium 1.9 mg/dl (1.7-2.4); Phosphorus 2.6 mg/dl (2.5-4.9); Potassium 3.4 mmol/L (3.5-5.1)
[2023-11-30 05:14] LABS: ANTI-Xa, UFH(UnfractionatedHep 0.25 IU/ml (0.3-0.7)
[2023-11-30] MEDS: POTASSIUM CHLORIDE / WTR 20 MEQ/100 ML PLCT IV SCH (06:16)
--- NOTE | 2023-11-30 07:22 | XRay Report ---
XR chest 1V portable CLINICAL HISTORY: f/u COMPARISON STUDY: Chest CT November 26, 2023. Chest radiograph November 28, 2023. FINDINGS: This exam is compromised given difficulty positioning. The endotracheal and nasogastric tub es have been removed. No pneumothorax is identified. There are small to moderate right and small left pleural effusions. Extensive bilateral airspace opacities and interstitial thickening persists. Card iomediastinal silhouette is stable. IMPRESSION: 1. Persistent extensive bilateral airspace opacities suggestive of pneumonia. Probable superimposed p ulmonary edema. 2. Moderate right and small left pleural effusions. No pneumothorax. ACT 112: Negative or not required by law. Electronically signed by: Omari Foreman M.D. 11/30/2023 7:19 AM
--- NOTE | 2023-11-30 07:41 | XRay Report ---
KUB CLINICAL HISTORY: Small bowel obstruction. COMPARISON STUDY: CT of the abdomen and pelvis November 26, 2023. KUB November 28, 2023. FINDINGS: There has been continued improvement in small bowel dilatation since prior exam. No dilated loops of small bowel are identified on this exam. Scattered colonic gas is present. There is a moder ate amount of stool within the rectum. Right abdominal surgical clips are incidentally noted. Right f emoral central venous catheter remains in place. IMPRESSION: Findings suggestive of a resolving small bowel obstruction. ACT 112: Negative or not required by law. Electronically signed by: Omari Foreman M.D. 11/30/2023 7:40 AM
--- NOTE | 2023-11-30 07:54 | Critical Care Progress Note ---
Date of Service November 30, 2023 Assessment & Plan (1) Fall: (2) Closed T8 spinal fracture: (3) Nasal bone fracture: (4) Supratherapeutic INR: (5) Seizure disorder: (6) Current long-term use of 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 medication with history of deep venous thrombosis (DVT): (7) T2DM (type 2 diabetes mellitus): (8) HLD (hyperlipidemia): (9) Lymphedema: (10) Hepatic encephalopathy: (11) Acute hypoxic respiratory failure: Plan 63-year-old male was admitted to the hospital for fall, transferred to ICU for ventilatory failure and septic shock Past medical history: Diabetes type 2, dyslipidemia, history of liver failure, BPH, DVT in 2001 on Coumadin, seizure disorder. Neuro: -- Metabolic encephalopathy --> improved Multifactorial Hyperammonia from underlying seizure medications Severe sepsis with septic shock CT head negative for any acute findings on 11/23/2023 -- Epilepsy Home antiepileptic regimen consists of Depakote, Dilantin, and topiramate Hold Topamax. Cardiac: -- S/p septic shock Likely secondary to multilobar pneumonia as well as SBO Continue with antibiotics --Elevated troponin Likely type II MD Tropes are trending down 2D echo 11/26/2023: EF 55 to 70%, RV is not visualized EKG 11/26/2023 after Intubation: Sinus tachycardia, ST depressions on the lateral leads. No ST elevations Resp: -- S/p VDRF Secondary to acute hypoxic respiratory failure from multilobar pneumonia likely from aspiration Extubated 11/29/2023 GI: -- Small bowel obstruction Continue with OG tube Surgery on board Renal: -- Monitor BUNs/creatinine Avoid nephrotoxic medications --History of right-sided nephrectomy : Strict I/Os Endo: ICU hyperglycemia protocol, blood glucose checks, maintain euglycemia Heme: --Thrombocytopenia Acute on chronic Continue to trend especially given the patient is on heparin -- monitor H&H ID: -- Multilobar pneumonia Continue with antibiotics Nasal MRSA negative Pro-Andrew negative Sputum culture growing Klebsiella which is resistant to Zosyn, antibiotic changed to Rocephin 11/28/2023 Blood culture negative to date --Prophylaxis VTE: Heparin drip resumed 11/27/23 GI: Pepcid Lines: Right femoral, right radial removed 11/29/2023, positive Edwards Diet: Plan: In/out: -2.4 L urine output 3450 Needed Precedex overnight as he was delirious Give a dose of Lasix today Will get eval today to see if he is able to take p.o. medications and if he does not we will resume gabapentin 100 mg 3 times daily Follow-up ammonia levels tomorrow. Continue with IV antiseizure medications. Case was discussed with Dr. Bailey I have personally spent 33 minutes of critical care time in the direct management of this patient. This is a life/limb threatening event. This includes time spent evaluating patient, direct bedside care, chart review, placing orders, interpretation of diagnostic studies, discussion with consultants, patient, and family members, as well as other required patient management activities. This time is exclusive of all separately billable procedures, and teaching time and separate from and in addition to any other critical care service time. Please note the above document was generated using voice recognition software. It may contain grammatical, syntax or spelling errors. Admission and Anticipated Discharge Date Admission Date: November 23, 2023 Subjective Patient seen and examined at bedside. No acute distress, no adverse events overnight He did require Precedex as he was getting restless and moaning. During the day he was off Precedex since 11 AM but overnight they had to restart it. Has been getting Dilaudid for the back pain. He was awake alert oriented to self. Denied any abdominal pain. Did state that he is hungry and would like to eat something. Blood pressure was in the 140 systolic at the time of examination Review of Systems 2 Review of Systems: All systems reviewed & are unremarkable except as noted in Subjective Physical Exam 2 Physical Exam: Constitutional: No acute distress HEENT: EOMI, PERRLA, left-sided periorbital hematoma, deformed nasal septum Respiratory system: Decreased air entry bilaterally, no wheeze, no rhonchi, positive crackles bilaterally CVS: S1-S2 positive, no murmurs or gallops Abdomen: Right upper quadrant scar, soft, nondistended, reducible epigastric hernia, no rebound, decreased bowel sounds Extremities: +2 pulses bilaterally radialis/ dorsalis pedis, no cyanosis, +1 pitting edema bilateral lower extremity Neuro: Awake alert oriented to self Psych: Normal mood and affect G/U: Positive Edwards Musculoskeletal: Severe cervical kyphosis Skin: no rashes, warm and dry Lymphatic: no cervical or axillary lymphadenopathy Results & Data Results & Data Vital Signs (Past 12 Hours) Vital Signs Pulse Resp BP Pulse Ox O2 Del Method O2 Flow Rate 11/30/23 07:14 Oxymask 6 11/30/23 06:40 104 H 96 11/30/23 06:30 105 H 93 11/30/23 06:20 97 H 96 11/30/23 06:10 93 H 97 11/30/23 06:01 100 H 96 11/30/23 06:01 168/114 H 11/30/23 06:00 103 H 97 11/30/23 05:50 108 H 95 11/30/23 05:40 93 H 97 11/30/23 05:30 94 H 96 11/30/23 05:20 93 H 95 11/30/23 05:10 91 H 97 11/30/23 05:01 96 H 96 11/30/23 05:01 175/98 H 11/30/23 05:00 95 H 96 11/30/23 04:50 95 H 96 11/30/23 04:40 91 H 95 11/30/23 04:30 86 97 11/30/23 04:20 82 97 11/30/23 04:10 85 98 11/30/23 04:00 159/97 H 11/30/23 04:00 94 H 96 11/30/23 04:00 81 11/30/23 03:50 95 H 94 11/30/23 03:40 88 94 11/30/23 03:30 83 98 11/30/23 03:20 81 96 11/30/23 03:10 84 100 11/30/23 03:01 126/66 11/30/23 03:01 84 11/30/23 03:00 82 99 11/30/23 02:50 86 98 11/30/23 02:40 85 100 11/30/23 02:30 74 98 11/30/23 02:20 74 98 11/30/23 02:10 81 99 11/30/23 02:01 111/87 11/30/23 02:01 85 96 11/30/23 02:00 83 94 11/30/23 01:50 80 99 11/30/23 01:40 83 98 11/30/23 01:30 82 98 11/30/23 01:20 77 97 11/30/23 01:10 76 97 11/30/23 01:00 132/68 11/30/23 01:00 85 95 11/30/23 00:50 90 96 11/30/23 00:40 77 98 11/30/23 00:30 82 97 11/30/23 00:20 79 98 11/30/23 00:10 83 98 11/30/23 00:01 153/78 H 11/30/23 00:01 90 97 11/30/23 00:00 90 97 11/30/23 00:00 111 H 171/107 H 11/29/23 23:50 88 12 98 11/29/23 23:40 88 17 99 11/29/23 23:30 90 14 98 11/29/23 23:20 88 14 99 11/29/23 23:10 90 12 100 11/29/23 23:00 131/72 11/29/23 23:00 92 H 13 96 11/29/23 22:50 93 H 17 98 11/29/23 22:40 92 H 10 L 97 11/29/23 22:30 90 95 11/29/23 22:20 84 97 11/29/23 22:10 96 H 98 11/29/23 22:01 103 H 96 11/29/23 22:01 158/88 H 11/29/23 22:00 102 H 26 H 96 11/29/23 21:50 100 H 15 94 11/29/23 21:40 97 H 11 L 98 11/29/23 21:30 100 H 20 99 11/29/23 21:20 99 H 96 11/29/23 21:10 97 H 97 11/29/23 21:01 147/90 H 11/29/23 21:01 108 H 95 11/29/23 21:00 109 H 99 11/29/23 20:50 105 H 90 11/29/23 20:40 87 87 L 11/29/23 20:30 109 H 97 11/29/23 20:20 101 H 21 97 11/29/23 20:10 93 H 19 98 11/29/23 20:00 96 H 20 98 11/29/23 20:00 125/66 11/29/23 20:00 Oxymask 10 11/29/23 20:00 111 H 171/107 H Laboratory Results 11/30/23 04:11 11/30/23 04:11 Coding Level of Care Code 35295 CRITICAL CARE 1ST 30-74M Diagnoses Fall W19.XXXA Closed T8 spinal fracture S22.069A Nasal bone fracture S02.2XXA Supratherapeutic INR R79.1 Seizure disorder G40.909 Current long-term use of 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 medication with history of deep venous thrombosis (DVT) Z86.718; Z79.01 T2DM (type 2 diabetes mellitus) E11.9 HLD (hyperlipidemia) E78.5 Lymphedema I89.0 Hepatic encephalopathy K76.82 Acute hypoxic respiratory failure J96.01
[2023-11-30] MEDS: MAGNESIUM SULFATE / D5W 1 GM/100 ML BAG IV ONE (08:26)
[2023-11-30] MEDS: FUROSEMIDE INJ 20 MG/2 ML VIAL IV ONE (08:27)
[2023-11-30] MEDS: HYDROmorphone INJ 0.5 MG/0.5 ML SYR IV PRN (09:44)
--- NOTE | 2023-11-30 11:13 | Hospitalist Progress Note ---
Date of Service November 30, 2023 Assessment & Plan (1) Fall: (2) Closed T8 spinal fracture: (3) Nasal bone fracture: (4) Supratherapeutic INR: (5) Seizure disorder: (6) Current long-term use of 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 medication with history of deep venous thrombosis (DVT): (7) T2DM (type 2 diabetes mellitus): (8) HLD (hyperlipidemia): (9) Lymphedema: Plan 63yo M with a PMH of DM II, dyslipidemia, venous insufficiency, history of liver failure, BPH, DVT in 2011 on coumadin, venous insufficiency, history of generalized convulsive epilepsy, history of a solitary kidney and other medical problems listed below who presents from home after a fall. He is being managed for the following: Likely metabolic vs Hepatic encephalopathy: NH3 elevated iso sbo, now improving Small bowel obstruction Fever: Likely secondary to pneumonia Severe sepsis with shock: Likely secondary to pneumonia, currently needing pressor support Patient had a code purple 11/25 AM, was hypoxic/altered/vomiting --> intubated 11/25 and transferred to ICU. CT head with no acute finding. CT abdomen pelvis with findings suggestive of SBO and lower lung consolidation suggestive of pneumonia or aspiration pneumonitis. CT chest suggestive of extensive bilateral lower lobe consolidation, pneumonia versus aspiration pneumonitis. BAL Cx positive of K. pneumoniae; sensitive to ceftriaxone Patient extubated on 11/28; sedation being weaned off. Zosyn changed to ceftriaxone for BAL culture; continue to complete 7-day course Continue bowel rest; awaiting return of bowel function. Abnormal EKG/? Chest pain: Rule out ACS, discussed with cardiology 11/25, echo without regional wall motion abnormality. Continue telemetry monitoring; cardiology evaluated the patientno further intervention required at the moment. Mechanical Fall Closed T8 spinal fracture Lumbar spine CT with oblique fracture through the anterior body of T8 which extends through the inferior endplate and likely involves the T8-T9 disc space. This fracture may be unstable. Mild prevertebral edema/hemorrhage is seen at the T8 level [facility] evaluated on 11/23-mobilization with physical therapy, not an area of spine amenable to bracing. No bending/lifting or twisting, good body mechanics and posture Pain control, Fall precautions PT OT reordered Nasal bone fractures No acute bleeding Continue ice, pain control Discussed with [facility] 11/24 no indication for surgery for now, follow-up with [facility] as an outpatient. Okay to resume his anticoagulation. Supratherapeutic INR : resolved. Currently on heparin drip 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 : Remote history . anticoagulation. Currently on heparin drip. Uncontrolled DM II HbA1c 10.5 in Aug , A1c better this admission Hold home agents Basal/bolus insulin per protocol while in-patient BSG AC HS Seizure disorder Continue home Depakote, Dilantin and topiramate BLE neuropathy Gabapentin dose recently changed to 100mg TID BPH On Flomax and Proscar Bladder scan PRN Chronic lymphedema Chronic Venous insufficiency No open wounds Continue home Lasix Monitor for volume overload Gout Continue allopurinol Solitary kidney As per records DVT Ppx: Hep drip Code status: FULL PCP: Cruz Dispo: Currently in ICU. Time spent evaluating patient, direct bedside care, chart review, placing orders, interpretation of diagnostic studies, discussion with consultants, patient, and family members, as well as other required patient management activities is 50 minutes Please note the above document was generated using voice recognition software. It may contain grammatical, syntax or spelling errors. Any formal questions or concerns about the content, text or information contained within the body of this dictation should be directly addressed to the provider for clarification Admission and Anticipated Discharge Date Admission Date: November 23, 2023 Subjective Patient seen and examined at bedside. He is off Precedex since 6 AM. He appears to be lethargic; is oriented to self. Currently on Oxymask at 6 L/min. Review of Systems Review of Systems: All systems reviewed & are unremarkable except as noted in Subjective Physical Exam Physical Exam: GENERAL: Appears lethargic; responds to his name HEENT: No pallor, no icterus. Pupils equal, round and reactive to light. Oral mucosa dry. NECK: No JVD, no neck masses. nasal bridge swelling. HEART: S1 and S2 heard. Regular rate and rhythm. No murmur, no gallop. RESPIRATORY SYSTEM: Decreased breath sound at bases. ABDOMEN: Abdomen distended, nontender. CENTRAL NERVOUS SYSTEM: No facial droop. Obeys simple commands. Moves extremities. EXTREMITIES: chronic lymphedema, no erythema seen. Results & Data Results & Data Vital Signs (Past 12 Hours) Vital Signs Pulse Resp BP Pulse Ox O2 Del Method O2 Flow Rate 11/30/23 07:14 Oxymask 6 11/30/23 06:40 104 H 96 11/30/23 06:30 105 H 93 11/30/23 06:20 97 H 96 11/30/23 06:10 93 H 97 11/30/23 06:01 100 H 96 11/30/23 06:01 168/114 H 11/30/23 06:00 103 H 97 11/30/23 05:50 108 H 95 11/30/23 05:40 93 H 97 11/30/23 05:30 94 H 96 11/30/23 05:20 93 H 95 11/30/23 05:10 91 H 97 11/30/23 05:01 96 H 96 11/30/23 05:01 175/98 H 11/30/23 05:00 95 H 96 11/30/23 04:50 95 H 96 11/30/23 04:40 91 H 95 11/30/23 04:30 86 97 11/30/23 04:20 82 97 11/30/23 04:10 85 98 11/30/23 04:00 159/97 H 11/30/23 04:00 94 H 96 11/30/23 04:00 81 11/30/23 03:50 95 H 94 11/30/23 03:40 88 94 11/30/23 03:30 83 98 11/30/23 03:20 81 96 11/30/23 03:10 84 100 11/30/23 03:01 126/66 11/30/23 03:01 84 11/30/23 03:00 82 99 11/30/23 02:50 86 98 11/30/23 02:40 85 100 11/30/23 02:30 74 98 11/30/23 02:20 74 98 11/30/23 02:10 81 99 11/30/23 02:01 111/87 11/30/23 02:01 85 96 11/30/23 02:00 83 94 11/30/23 01:50 80 99 11/30/23 01:40 83 98 11/30/23 01:30 82 98 11/30/23 01:20 77 97 11/30/23 01:10 76 97 11/30/23 01:00 132/68 11/30/23 01:00 85 95 11/30/23 00:50 90 96 11/30/23 00:40 77 98 11/30/23 00:30 82 97 11/30/23 00:20 79 98 11/30/23 00:10 83 98 11/30/23 00:01 153/78 H 11/30/23 00:01 90 97 11/30/23 00:00 90 97 11/30/23 00:00 111 H 171/107 H 11/29/23 23:50 88 12 98 11/29/23 23:40 88 17 99 11/29/23 23:30 90 14 98 11/29/23 23:20 88 14 99
[2023-11-30] MEDS: GABAPENTIN 250 MG/5 ML 470 ML BTL PO SCH (11:24)
[2023-11-30 12:37] LABS: ANTI-Xa, UFH(UnfractionatedHep 0.27 IU/ml (0.3-0.7)
[2023-11-30 15:24] LABS: BUN Creatinine Ratio 24.7 (10-20); Creatinine Clr Calc Pharmacy 123.8 ml/min; Est GFR (African American) 108.1 ml/min; Est GFR (Non-African American) 93.3 ml/min; Potassium 3.6 mmol/L (3.5-5.1)
[2023-12-01 00:24] LABS: ANTI-Xa, UFH(UnfractionatedHep 0.38 IU/ml (0.3-0.7)
[2023-12-01 04:20] LABS: Basophils # (auto) 0.05 K/uL (0.00-0.20); Basophils % (auto) 0.5 %; Eosinophils # (auto) 0.22 K/uL (0.00-0.50); Eosinophils % (auto) 2.2 %; Hematocrit (blood only) 32.7 % (42.0-52.0); Hemoglobin 11.4 g/dl (14.0-18.0); Immature Granulocytes # (auto) 0.41 K/uL (0.01-0.20); Immature Granulocytes % (auto) 4.1 %; Lymphocytes # (auto) 1.58 K/uL (1.20-3.40); Lymphocytes % (auto) 15.6 %; Mean Corpuscular Hemoglobin 34.1 pg (25.0-34.0); Mean Corpuscular Hgb Conc 34.9 g/dL (32.0-36.0); Mean Corpuscular Volume 97.9 fL (80.0-100.0); Mean Platelet Volume 9.5 fL (9.4-12.4); Monocytes # (auto) 1.56 K/uL (0.11-0.59); Monocytes % (auto) 15.4 %; Neutrophils # (auto) 6.29 K/uL (1.40-6.50); Neutrophils % (auto) 62.2 %; Platelet Count 132 K/uL (130-400); RDW Coefficient of Variation 14.4 % (11.5-14.5); RDW Standard Deviation 51.3 fL (36.4-46.3); Red Blood Count 3.34 M/uL (4.70-6.10); White Blood Count 10.11 K/ul (4.8-10.8)
[2023-12-01 04:35] LABS: BUN Creatinine Ratio 20.8 (10-20); Calcium 7.7 mg/dl (8.6-10.3); Creatinine Clr Calc Pharmacy 130.3 ml/min; Est GFR (African American) 110.4 ml/min; Est GFR (Non-African American) 95.2 ml/min; Magnesium 1.6 mg/dl (1.7-2.4); Potassium 3.4 mmol/L (3.5-5.1)
[2023-12-01 04:44] LABS: ANTI-Xa, UFH(UnfractionatedHep 0.32 IU/ml (0.3-0.7)
[2023-12-01] MEDS ORDERED: POTASSIUM PHOS 3 MMOL/1 ML INFUSION IV STA ×2 (05:57→17:04)
[2023-12-01] MEDS: MAGNESIUM SULFATE / D5W 1 GM/100 ML BAG IV SCH (06:17)
[2023-12-01] MEDS: POTASSIUM PHOSPHATE 9 MMOL in SODIUM CHLORIDE 0.9% 250 ML IV ONE (06:20)
[2023-12-01] MEDS: FUROSEMIDE 40 MG/4 ML VIAL IV ONE (08:12)
[2023-12-01] MEDS: KETOROLAC TROMETHAMINE 15 MG/ML VIAL IV PRN (08:30)
[2023-12-01] MEDS ORDERED: METOPROLOL TARTRATE 1 MG/ML VIAL IV PRN (08:45)
[2023-12-01] MEDS ORDERED: HYDROmorphone INJ 1 MG/ML SYRINGE IV PRN (08:50)
[2023-12-01] MEDS: MIDAZOLAM HCL 1 MG/ML 2ML VIAL ONE (09:32)
[2023-12-01] MEDS: ACETAMINOPHEN 1,000 MG/100 ML VIAL IV SCH (09:50)
--- NOTE | 2023-12-01 10:32 | Hospitalist Progress Note ---
Date of Service December 01, 2023 Assessment & Plan (1) Fall: (2) Closed T8 spinal fracture: (3) Nasal bone fracture: (4) Supratherapeutic INR: (5) Seizure disorder: (6) Current long-term use of 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 medication with history of deep venous thrombosis (DVT): (7) T2DM (type 2 diabetes mellitus): (8) HLD (hyperlipidemia): (9) Lymphedema: Plan 63yo M with a PMH of DM II, dyslipidemia, venous insufficiency, history of liver failure, BPH, DVT in 2011 on coumadin, venous insufficiency, history of generalized convulsive epilepsy, history of a solitary kidney and other medical problems listed below who presents from home after a fall. He is being managed for the following: Likely metabolic vs Hepatic encephalopathy: Small bowel obstruction Fever: Likely secondary to pneumonia Severe sepsis with shock: Likely secondary to pneumonia, currently needing pressor support Patient had a code purple 11/25 AM, was hypoxic/altered/vomiting --> intubated 11/25 and transferred to ICU. CT head with no acute finding. CT abdomen pelvis with findings suggestive of SBO and lower lung consolidation suggestive of pneumonia or aspiration pneumonitis. CT chest suggestive of extensive bilateral lower lobe consolidation, pneumonia versus aspiration pneumonitis. BAL Cx positive of K. pneumoniae; sensitive to ceftriaxone Patient was extubated on 11/28; vasopressors where weaned off. Sedation was weaned off to on 11/29 Patient transferred out of the ICU on 11/30 For the pneumoniacontinue on ceftriaxone; for total of 7 days. His airway clearance therapy with hypertonic saline and DuoNebs. Small bowel obstruction/ileusimproving on KUB. Will provide him lactulose enema. PEDIATRIC ONCOLOGY NURSE eval awaited to resume oral diet Delirium precautions Abnormal EKG/? Chest pain: Rule out ACS, discussed with cardiology 11/25, echo without regional wall motion abnormality. Continue telemetry monitoring; cardiology evaluated the patientno further intervention required at the moment. Discussed with cardiology on 11/30; place and placed on metoprolol IV as needed for tachycardia as per recommendation. Mechanical Fall Closed T8 spinal fracture Lumbar spine CT with oblique fracture through the anterior body of T8 which extends through the inferior endplate and likely involves the T8-T9 disc space. This fracture may be unstable. Mild prevertebral edema/hemorrhage is seen at the T8 level [facility] evaluated on 11/23-mobilization with physical therapy, not an area of spine amenable to bracing. No bending/lifting or twisting, good body mechanics and posture Pain control with Tylenol [id number], ketorolac and Dilaudid. Fall precautions PT OT reordered Nasal bone fractures No acute bleeding Continue ice, pain control Discussed with [facility]MS 11/24 no indication for surgery for now, follow-up with [facility] as an outpatient. Okay to resume his anticoagulation. Supratherapeutic INR : resolved. Currently on heparin drip. Plan to resume Coumadin when patient is taking oral meds. 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 : Remote history . anticoagulation. Currently on heparin drip. Uncontrolled DM II HbA1c 10.5 in Aug , A1c better this admission Hold home agents Basal/bolus insulin per protocol while in-patient BSG AC HS Seizure disorder Continue home Depakote, Dilantin and topiramate BLE neuropathy Gabapentin dose recently changed to 100mg TID BPH On Flomax and Proscar Bladder scan PRN Chronic lymphedema Chronic Venous insufficiency No open wounds Continue home Lasix Monitor for volume overload Gout Continue allopurinol Solitary kidney As per records DVT Ppx: Hep drip Code status: FULL PCP: Cruz Dispo: Patient admitted for multiple issues including bilateral pneumonia, ileus, vertebral fracture, nasal fracture. To be transferred out of ICU today to PCU. Pending swallow evaluation. Needs close monitoring for decompensation. Updated his Sister Lo over the phone about patient's current medical status. S he appreciated the update. Answer question/queries Time spent evaluating patient, direct bedside care, chart review, placing orders, interpretation of diagnostic studies, discussion with consultants, patient, and family members, as well as other required patient management activities is 50 minutes Please note the above document was generated using voice recognition software. It may contain grammatical, syntax or spelling errors. Any formal questions or concerns about the content, text or information contained within the body of this dictation should be directly addressed to the provider for clarification Admission and Anticipated Discharge Date Admission Date: November 23, 2023 Subjective Patient seen at bedside. He appears lethargic; only responds to his name. He was febrile overnight. Appears tachypneic; he still requiring 6 L of oxygen by nasal cannula Review of Systems Review of Systems: Unobtainable due to cognitive status Physical Exam Physical Exam: GENERAL: Appears lethargic; responds to his name HEENT: No pallor, no icterus. Pupils equal, round and reactive to light. Oral mucosa dry. NECK: No JVD, no neck masses. nasal bridge swelling. HEART: S1 and S2 heard. Regular rate and rhythm. No murmur, no gallop. RESPIRATORY SYSTEM: Decreased breath sound at bases. ABDOMEN: Abdomen distended, nontender. Slight improvement compared to yesterday. CENTRAL NERVOUS SYSTEM: No facial droop. Obeys simple commands. Moves extremities. EXTREMITIES: chronic lymphedema, no erythema seen. Results & Data Results & Data Vital Signs (Past 12 Hours) Vital Signs Temp Pulse Resp BP Pulse Ox O2 Del Method O2 Flow Rate 12/01/23 09:00 38.1 C H 108 H 23 90 Nasal Cannula 6 12/01/23 09:00 155/68 H 12/01/23 08:00 154/82 H 12/01/23 08:00 108 H 25 H 93 12/01/23 08:00 Nasal Cannula 6 12/01/23 07:00 111 H 27 H 91 12/01/23 07:00 138/87 12/01/23 06:01 114 H 27 H 90 12/01/23 06:01 168/98 H 12/01/23 05:00 106 H 23 95 12/01/23 05:00 140/78 12/01/23 04:01 107 H 15 97 12/01/23 04:01 118/65 12/01/23 04:00 38 C H 12/01/23 03:01 146/73 H 12/01/23 03:01 110 H 26 H 91 12/01/23 02:01 111 H 28 H 90 12/01/23 02:01 151/93 H 12/01/23 01:00 125/86 12/01/23 01:00 105 H 25 H 90 12/01/23 00:00 37.8 C H 12/01/23 00:00 104 H 12/01/23 00:00 135/73 12/01/23 00:00 107 H 21 92 11/30/23 23:00 161/75 H 11/30/23 23:00 106 H 21 92
[2023-12-01] MEDS: SODIUM CHLOR 7% 4 ML NEB NEB SCH (11:41)
[2023-12-01] MEDS: ALBUT/IPRATROP 3MG/0.5MG NEB 3 ML VIAL NEB SCH (11:41)
[2023-12-01] MEDS: LACTULOSE 200GM/700ML WTR ENEMA PR SCH (11:52)
[2023-12-01] MEDS: VALPROATE SOD IV SCH (11:52)
[2023-12-01] MEDS: DEXTROSE 5% IV SCH (11:52)
--- NOTE | 2023-12-01 12:08 | Pharmacy Report ---
Pharmacy Glycemic Short Note 2 - Date of Service December 01, 2023 - Glycemic Short BSG Results (Last 24 hours): 11/30/23 11/30/23 11/30/23 14:51 16:41 19:59 Glucose 153 H POC Glucose 129 H 150 H 11/30/23 12/01/23 12/01/23 23:16 04:07 08:22 Glucose 156 H POC Glucose 147 H 183 H 12/01/23 11:44 Glucose POC Glucose 199 H OUTPATIENT ANTIDIABETIC REGIMEN: * Glipizide 10 mg PO BIDM * Tradjenta 5 mg PO daily * HbA1c: 7.5% (11/24/23) ASSESSMENT: 11/29: * Patient received total of 9 units of insulin yesterday, of which 5 units were basal * Fasting BSG 183 mg/dL - will titrate up to 10 units this AM of basal and continue with scale for HS * Plan to continue current NPO status as patient failed swallow test this AM. 11/28: * Patient received 38 units of insulin yesterday, 30 of which were basal. BSGs were [phone] mg/dL. Fasting BSG this morning was improved at 148 mg/dL. * Patient was extubated this morning and is no NPO. Will reduce basal insulin today. * Patient remains on some pressor support and a heparin drip. 11/27: * Insulin infusion was d/c'd overnight by provider and 20 units of lantus was administered. Subsequent BSGs 206-218-208 mg/dL. * Discussed with multidisciplinary team, will trial coverage off of insulin drip with basal bolus as pressor needs anticipated to decrease. * TFs initiated today at a trickle rate. Severe existing infusion contain dextrose (norepinephrine, heparin, and VPA). 11/25 * 63 yo M admitted on 11/23/23 secondary to a fall. Patient aspirated on the morning of 11/26/23 and required intubation and transfer to the ICU. Pharmacy has been consulted to assist with inpatient glycemic management. Patient is a Type 2 diabetic as an outpatient. Please refer to outpatient regimen and most recent HbA1c above. * Eliseo was receiving 40 units of basal per day since admission with Novolog based on weight/stress of ~2 with adequate glycemic control. * Stressors have now changed significantly as patient is intubated and sedated. Ordered norepinephrine, vasopressin, fentanyl, propofol and heparin drips. Zosyn added for aspiration coverage. nt potassium was 3.7 mg/dL and is being replaced IV. * No insulin received yet today. Will d/c basal + bolus and start patient on insulin drip based on high stress and most recent BSG of 266 mg/dL. This will provide a 4 unit bolus followed by drip at a rate of 3.8 units/hr. Goal range is 110-180 mg/dL. Most rece * Will not transition patient off drip until clinical status improved and patient ready to be extubated. Will consider adding basal insulin tomorrow if patient improving. PLAN FOR INPATIENT GLYCEMIC CONTROL: * Hold outpatient oral diabetes medications * Basal insulin * Lantus 10 units this morning * Lantus scale this evening (0-10 based on BSG- See MAR for details) * Bolus insulin * NovoLog per scale ACHS or Q6hrs while NPO * Goal Range: Low 110 mg/dL - High 140 mg/dL * Correction Factor: 20 mg/dL/unit * Nutritional / Prandial insulin per carb ratio of 1 unit per 8 grams CHO consumed
[2023-12-01 16:15] LABS: BUN Creatinine Ratio 16.4 (10-20); Calcium 8.1 mg/dl (8.6-10.3); Creatinine Clr Calc Pharmacy 137.5 ml/min; Est GFR (African American) 112.8 ml/min; Est GFR (Non-African American) 97.3 ml/min; Magnesium 1.9 mg/dl (1.7-2.4); Phosphorus 1.9 mg/dl (2.5-4.9); Potassium 3.3 mmol/L (3.5-5.1)
[2023-12-01] MEDS: HYDROmorphone INJ 0.5 MG/0.5 ML SYR IV PRN (17:38)
[2023-12-01] MEDS: POTASSIUM PHOSPHATE 30 MMOL in SODIUM CHLORIDE 0.9% 500 ML IV ONE (17:58)
[2023-12-02] MEDS: VALPROATE SOD IV SCH (01:51)
[2023-12-02] MEDS: DEXTROSE 5% IV SCH (01:51)
[2023-12-02 07:28] LABS: ANTI-Xa, UFH(UnfractionatedHep 0.34 IU/ml (0.3-0.7)
[2023-12-02 07:30] LABS: BUN Creatinine Ratio 20.6 (10-20); Calcium 7.7 mg/dl (8.6-10.3); Creatinine Clr Calc Pharmacy 148.9 ml/min; Est GFR (African American) 116.2 ml/min; Est GFR (Non-African American) 100.2 ml/min; Magnesium 1.9 mg/dl (1.7-2.4); Potassium 3.8 mmol/L (3.5-5.1)
[2023-12-02] MEDS: INSULIN ASPART PER UNIT CHARGE SC SCH (08:20)
--- NOTE | 2023-12-02 08:58 | Critical Care Progress Note ---
Date of Service December 02, 2023 Assessment & Plan (1) Fall: (2) Closed T8 spinal fracture: (3) Nasal bone fracture: (4) Supratherapeutic INR: (5) Seizure disorder: (6) Current long-term use of 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 medication with history of deep venous thrombosis (DVT): (7) T2DM (type 2 diabetes mellitus): (8) HLD (hyperlipidemia): (9) Lymphedema: (10) Hepatic encephalopathy: (11) Acute hypoxic respiratory failure: Plan 63-year-old male was admitted to the hospital for fall, transferred to ICU for ventilatory failure and septic shock Past medical history: Diabetes type 2, dyslipidemia, history of liver failure, BPH, DVT in 2001 on Coumadin, seizure disorder. Neuro: -- Metabolic encephalopathy --> improved Multifactorial Hyperammonia from underlying seizure medications Severe sepsis with septic shock CT head negative for any acute findings on 11/23/2023 -- Epilepsy Home antiepileptic regimen consists of Depakote, Dilantin, and topiramate Hold Topamax. Cardiac: -- S/p septic shock Likely secondary to multilobar pneumonia as well as SBO Continue with antibiotics --Elevated troponin Likely type II MT Tropes are trending down 2D echo 11/26/2023: EF 55 to 70%, RV is not visualized EKG 11/26/2023 after Intubation: Sinus tachycardia, ST depressions on the lateral leads. No ST elevations Resp: -- S/p VDRF Secondary to acute hypoxic respiratory failure from multilobar pneumonia likely from aspiration Extubated 11/29/2023 GI: -- Small bowel obstruction Continue with OG tube Surgery on board Renal: -- Monitor BUNs/creatinine Avoid nephrotoxic medications --History of right-sided nephrectomy : Strict I/Os Endo: ICU hyperglycemia protocol, blood glucose checks, maintain euglycemia Heme: --Thrombocytopenia Acute on chronic Continue to trend especially given the patient is on heparin -- monitor H&H ID: -- Multilobar pneumonia Continue with antibiotics Nasal MRSA negative Pro-Andrew negative Sputum culture growing Klebsiella which is resistant to Zosyn, antibiotic changed to Rocephin 11/28/2023 Blood culture negative to date --Prophylaxis VTE: Heparin drip resumed 11/27/23 GI: Pepcid Lines: Right femoral, right radial removed 11/29/2023, positive Edwards Diet: Plan: In/out: Positive 446, urine output 1425 Did not need Precedex for more than 24 hours Patient was having some delirium overnight. Did not require any as pressure medications. Still having persistent pain in the back. Currently we are limited to giving the patient Dilaudid and lidocaine patch Patient does have noted allergy of seizure to indomethacin. I doubt that being a true allergy. I will add ketorolac 15 mg every 6 hours while he is in the ICU to see if he gets any allergic reaction to it. Valproic acid level is 32. Will increase the dose to 600 every 6. Ammonia levels to be done later today. He did fail swallow eval yesterday. Will give another swallow eval trial today. If he passes then we will resume his gabapentin. DC femoral TLC Would recommend to ask anesthesia if they can give epidural or local injection to decrease back pain Okay to downgrade patient to medical floor Case was discussed with Dr. Bailey Please note the above document was generated using voice recognition software. It may contain grammatical, syntax or spelling errors.Any formal questions or concerns about the content, text or information contained within the body of this dictation should be directly addressed to the provider for clarification. Admission and Anticipated Discharge Date Admission Date: November 23, 2023 Subjective Patient seen and examined at bedside. No acute distress, no adverse events overnight Has been off Precedex for more than 24 hours Has been getting Dilaudid almost every 2 hours for back pain. He is oriented to self and place. No shortness of breath. Denies any chest pain, Heart rate in the 110s. Denies any nausea vomiting. Had a bowel movement Review of Systems 2 Review of Systems: All systems reviewed & are unremarkable except as noted in Subjective Physical Exam 2 Physical Exam: Constitutional: No acute distress HEENT: EOMI, PERRLA, left-sided periorbital hematoma, deformed nasal septum Respiratory system: Decreased air entry bilaterally, no wheeze, no rhonchi, positive crackles bilaterally CVS: S1-S2 positive, no murmurs or gallops Abdomen: Right upper quadrant scar, soft, nondistended, reducible epigastric hernia, no rebound, decreased bowel sounds Extremities: +2 pulses bilaterally radialis/ dorsalis pedis, no cyanosis, +1 pitting edema bilateral lower extremity Neuro: Awake alert oriented to self Psych: Normal mood and affect G/U: Positive Edwards Musculoskeletal: Severe cervical kyphosis Skin: no rashes, warm and dry Lymphatic: no cervical or axillary lymphadenopathy Results & Data Results & Data Vital Signs (Past 12 Hours) Vital Signs Temp Pulse Pulse Resp BP Pulse Ox O2 Del Method 12/02/23 07:35 95 H 20 93 Nasal Cannula 12/02/23 07:16 36.9 C 94 H 19 173/76 H 92 Nasal Cannula 12/02/23 03:57 36.7 C 95 H 19 172/78 H 93 Nasal Cannula 12/02/23 01:04 96 H 20 94 Nasal Cannula 12/01/23 23:42 37.0 C 92 H 19 158/81 H 97 Nasal Cannula 12/01/23 22:02 99 H O2 Flow Rate 12/02/23 07:35 5 12/02/23 07:16 5.0 12/02/23 03:57 5 12/02/23 01:04 5 12/01/23 23:42 5 12/01/23 22:02 Laboratory Results 12/01/23 04:07 Coding Level of Care Code 49917 SUB INP/OBS CARE 3/50MIN Diagnoses Fall W19.XXXA Closed T8 spinal fracture S22.069A Nasal bone fracture S02.2XXA Supratherapeutic INR R79.1 Seizure disorder G40.909 Current long-term use of 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 medication with history of deep venous thrombosis (DVT) Z86.718; Z79.01 T2DM (type 2 diabetes mellitus) E11.9 HLD (hyperlipidemia) E78.5 Lymphedema I89.0 Hepatic encephalopathy K76.82 Acute hypoxic respiratory failure J96.01
[2023-12-02] MEDS: LANTUS PER UNIT CHARGE SQ SCH ×2 (09:10→18:08)
[2023-12-02] MEDS: FUROSEMIDE 40 MG/4 ML VIAL IV SCH (09:13)
--- NOTE | 2023-12-02 11:20 | Hospitalist Progress Note ---
Date of Service December 02, 2023 Assessment & Plan (1) Fall: (2) Closed T8 spinal fracture: (3) Nasal bone fracture: (4) Supratherapeutic INR: (5) Seizure disorder: (6) Current long-term use of 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 medication with history of deep venous thrombosis (DVT): (7) T2DM (type 2 diabetes mellitus): (8) HLD (hyperlipidemia): (9) Lymphedema: Plan 63yo M with a PMH of DM II, dyslipidemia, venous insufficiency, history of liver failure, BPH, DVT in 2011 on coumadin, venous insufficiency, history of generalized convulsive epilepsy, history of a solitary kidney and other medical problems listed below who presents from home after a fall. He is being managed for the following: Likely metabolic vs Hepatic encephalopathy: Small bowel obstruction Fever: Likely secondary to pneumonia Severe sepsis with shock: Likely secondary to pneumonia, currently needing pressor support Patient had a code purple 11/25 AM, was hypoxic/altered/vomiting --> intubated 11/25 and transferred to ICU. CT head with no acute finding. CT abdomen pelvis with findings suggestive of SBO and lower lung consolidation suggestive of pneumonia or aspiration pneumonitis. CT chest suggestive of extensive bilateral lower lobe consolidation, pneumonia versus aspiration pneumonitis. BAL Cx positive of K. pneumoniae; sensitive to ceftriaxone Patient was extubated on 11/28; vasopressors where weaned off. Sedation was weaned off to on 11/29 Patient transferred out of the ICU on 11/30 For the pneumoniacontinue on ceftriaxone; for total of 7 days. airway clearance therapy with hypertonic saline and DuoNebs. Small bowel obstruction/ileusimproving on KUB. Responded well to lactulose enema. 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 Chest pain: Rule out ACS, discussed with cardiology 11/25, echo without regional wall motion abnormality. Continue telemetry monitoring; cardiology evaluated the patientno further intervention required at the moment. Discussed with cardiology on 11/30; placed on metoprolol IV as needed for tachycardia as per recommendation. Mechanical Fall Closed T8 spinal fracture Lumbar spine CT with oblique fracture through the anterior body of T8 which e xtends through the inferior endplate and likely involves the T8-T9 disc space. This fracture may be unstable. Mild prevertebral edema/hemorrhage is seen at the T8 level [facility] evaluated on 4/21-mobilization with physical therapy, not an area of spine amenable to bracing. No bending/lifting or twisting, good body mechanics and posture Pain control with Tylenol [id number], ketorolac and Dilaudid. Fall precautions PT OT reordered Nasal bone fractures No acute bleeding Continue ice, pain control Discussed with [facility]MS 11/24 no indication for surgery for now, follow-up with [facility] as an outpatient. Okay to resume his anticoagulation. Supratherapeutic INR : resolved. Currently on heparin drip. Plan to resume Coumadin when patient is taking oral meds. 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 : Remote history . anticoagulation. Currently on heparin drip. Uncontrolled DM II HbA1c 10.5 in Aug , A1c better this admission Hold home agents Basal/bolus insulin per protocol while in-patient BSG AC HS Seizure disorder Continue home Depakote, Dilantin and topiramate BLE neuropathy Gabapentin dose recently changed to 100mg TID BPH On Flomax and Proscar Bladder scan PRN Chronic lymphedema Chronic Venous insufficiency No open wounds Continue home Lasix Monitor for volume overload Gout Continue allopurinol Solitary kidney As per records DVT Ppx: Hep drip Code status: FULL PCP: Cruz Dispo: Patient admitted for multiple issues including bilateral pneumonia, ileus, vertebral fracture, nasal fracture. Patient continues to be n.p.o. as he is unable to participate in swallow evaluation. Needs close monitoring for decompensation. Updated his Sister Lo over the phone on December 02, 2023. She appreciated the update. Answer question/queries Time spent evaluating patient, direct bedside care, chart review, placing orders, interpretation of diagnostic studies, discussion with consultants, neftali montelongo, and family members, as well as other required patient management activities is 50 minutes Please note the above document was generated using voice recognition software. It may contain grammatical, syntax or spelling errors. Any formal questions or concerns about the content, text or information contained within the body of this dictation should be directly addressed to the provider for clarification Admission and Anticipated Discharge Date Admission Date: November 23, 2023 Subjective Patient is much more alert today compared to previous day. He is answering questions appropriately Oxygen requirements have improved Abdomen appears to be less distended; patient had large bowel movement yesterday afternoon Review of Systems Review of Systems: All systems reviewed & are unremarkable except as noted in Subjective Physical Exam Physical Exam: GENERAL: Awake, alert, oriented to self and place. HEENT: No pallor, no icterus. Pupils equal, round and reactive to light. Oral mucosa dry. NECK: No JVD, no neck masses. nasal bridge swelling. HEART: S1 and S2 heard. Regular rate and rhythm. No murmur, no gallop. RESPIRATORY SYSTEM: Decreased breath sound at bases. ABDOMEN: Abdomen distention improved. Nontender CENTRAL NERVOUS SYSTEM: Grossly moves all extremities. EXTREMITIES: chronic lymphedema, no erythema seen. Results & Data Results & Data Vital Signs (Past 12 Hours) Vital Signs Temp Pulse Pulse Resp BP Pulse Ox O2 Del Method 12/02/23 08:00 87 12/02/23 08:00 Nasal Cannula 12/02/23 07:35 95 H 20 93 Nasal Cannula 12/02/23 07:16 36.9 C 94 H 19 173/76 H 92 Nasal Cannula 12/02/23 03:57 36.7 C 95 H 19 172/78 H 93 Nasal Cannula 12/02/23 01:04 96 H 20 94 Nasal Cannula 12/01/23 23:42 37.0 C 92 H 19 158/81 H 97 Nasal Cannula O2 Flow Rate 12/02/23 08:00 12/02/23 08:00 3 12/02/23 07:35 5 12/02/23 07:16 5.0 12/02/23 03:57 5 12/02/23 01:04 5 12/01/23 23:42 5
--- NOTE | 2023-12-02 13:54 | Pharmacy Report ---
Pharmacy Glycemic Short Note 2 - Date of Service December 02, 2023 - Glycemic Short BSG Results (Last 24 hours): 12/01/23 12/01/23 12/01/23 15:35 16:11 21:03 Glucose 166 H POC Glucose 156 H 171 H 12/02/23 12/02/23 12/02/23 00:31 04:00 06:33 Glucose 122 H POC Glucose 121 H 121 H 12/02/23 12:59 Glucose POC Glucose 157 H OUTPATIENT ANTIDIABETIC REGIMEN: * Glipizide 10 mg PO BIDM * Tradjenta 5 mg PO daily * HbA1c: 7.5% (11/24/23) ASSESSMENT: 12/01: * Patient received total of 24 units of insulin yesterday, of which 15 units were basal * Fasting BSG 122 mg/dL - will continue with scale for basal, still NPO 11/29: * Patient received total of 9 units of insulin yesterday, of which 5 units were basal * Fasting BSG 183 mg/dL - will titrate up to 10 units this AM of basal and co ntinue with scale for HS * Plan to continue current NPO status as patient failed swallow test this AM. 11/28: * Patient received 38 units of insulin yesterday, 30 of which were basal. BSGs were [phone] mg/dL. Fasting BSG this morning was improved at 148 mg/dL. * Patient was extubated this morning and is no NPO. Will reduce basal insulin today. * Patient remains on some pressor support and a heparin drip. 11/27: * Insulin infusion was d/c'd overnight by provider and 20 units of lantus was administered. Subsequent BSGs 206-218-208 mg/dL. * Discussed with multidisciplinary team, will trial coverage off of insulin drip with basal bolus as pressor needs anticipated to decrease. * TFs initiated today at a trickle rate. Severe existing infusion contain dextrose (norepinephrine, heparin, and VPA). 11/25 * 63 yo M admitted on 11/23/23 secondary to a fall. Patient aspirated on the morning of 11/26/23 and required intubation and transfer to the ICU. Pharmacy has been consulted to assist with inpatient glycemic management. Patient is a Type 2 diabetic as an outpatient. Please refer to outpatient regimen and most recent HbA1c above. * Eliseo was receiving 40 units of basal per day since admission with Novolog based on weight/stress of ~2 with adequate glycemic control. * Stressors have now changed significantly as patient is intubated and sedated. Ordered norepinephrine, vasopressin, fentanyl, propofol and heparin drips. Zosyn added for aspiration coverage. nt potassium was 3.7 mg/dL and is being replaced IV. * No insulin received yet today. Will d/c basal + bolus and start patient on insulin drip based on high stress and most recent BSG of 266 mg/dL. This will provide a 4 unit bolus followed by drip at a rate of 3.8 units/hr. Goal range is 110-180 mg/dL. Most rece * Will not transition patient off drip until clinical status improved and patient ready to be extubated. Will consider adding basal insulin tomorrow if patient improving. PLAN FOR INPATIENT GLYCEMIC CONTROL: * Hold outpatient oral diabetes medications * Basal insulin * Lantus 5 units daily in AM * Lantus 0-10 units HS * Bolus insulin * NovoLog per scale ACHS or Q6hrs while NPO * Goal Range: Low 110 mg/dL - High 140 mg/dL * Correction Factor: 20 mg/dL/unit * Nutritional / Prandial insulin per carb ratio of 1 unit per 8 grams CHO consumed
[2023-12-02] MEDS ORDERED: LANTUS PER UNIT CHARGE SQ SCH (21:00)
[2023-12-03 06:02] LABS: Hematocrit (blood only) 29.4 % (42.0-52.0); Mean Corpuscular Hemoglobin 33.3 pg (25.0-34.0); Mean Platelet Volume 9.9 fL (9.4-12.4); Nucleated RBC # (auto) 0.02 K/uL (0.00-0.12); Nucleated RBC % (auto) 0.2 %; Platelet Count 201 K/uL (130-400); RDW Coefficient of Variation 14.6 % (11.5-14.5); RDW Standard Deviation 52.6 fL (36.4-46.3); White Blood Count 10.68 K/ul (4.8-10.8)
[2023-12-03 06:05] LABS: BUN Creatinine Ratio 25.4 (10-20); Calcium 7.5 mg/dl (8.6-10.3); Creatinine Clr Calc Pharmacy 237.8 ml/min; Est GFR (African American) 116.9 ml/min; Est GFR (Non-African American) 100.8 ml/min; Magnesium 1.7 mg/dl (1.7-2.4); Potassium 3.5 mmol/L (3.5-5.1)
[2023-12-03 06:11] LABS: ANTI-Xa, UFH(UnfractionatedHep 0.41 IU/ml (0.3-0.7)
[2023-12-03 06:42] LABS: ANC (manual) 4.91 K/uL (1.4-6.5); Basophils # (manual) 0.21 K/uL (0-0.2); Basophils % (manual) 2 %; Eosinophils # (manual) 0.96 K/uL (0-0.50); Eosinophils % (manual) 9 %; Lymphocytes % (manual) 29 %; Metamyelocytes # (manual) 0.11 K/uL (0-0); Metamyelocytes % (manual) 1 %; Monocytes # (manual) 0.96 K/uL (0.11-0.59); Monocytes % (manual) 9 %; Myelocytes # (manual) 0.43 K/uL (0-0); Myelocytes % (manual) 4 %; Neutrophils # (manual) 4.91 K/uL (1.40-6.50); Neutrophils % (manual) 46 %; Polychromasia 1+
--- NOTE | 2023-12-03 14:39 | Hospitalist Progress Note ---
Date of Service December 03, 2023 Assessment & Plan (1) Fall: (2) Closed T8 spinal fracture: (3) Nasal bone fracture: (4) Supratherapeutic INR: (5) Seizure disorder: (6) Current long-term use of 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 medication with history of deep venous thrombosis (DVT): (7) T2DM (type 2 diabetes mellitus): (8) HLD (hyperlipidemia): (9) Lymphedema: Plan 63yo M with a PMH of DM II, dyslipidemia, venous insufficiency, history of liver failure, BPH, DVT in 2011 on coumadin, venous insufficiency, history of generalized convulsive epilepsy, history of a solitary kidney and other medical problems listed below who presents from home after a fall. He is being managed for the following: Altered mental status Likely metabolic vs Hepatic encephalopathy: Small bowel obstruction Fever: Likely secondary to pneumonia Severe sepsis with shock: Likely secondary to pneumonia, currently needing pressor support Patient had a code purple 11/25 AM, was hypoxic/altered/vomiting --> intubated 11/25 and transferred to ICU. CT head with no acute finding. CT abdomen pelvis with findings suggestive of SBO and lower lung consolidation suggestive of pneumonia or aspiration pneumonitis. CT chest suggestive of extensive bilateral lower lobe consolidation, pneumonia versus aspiration pneumonitis. BAL Cx positive of K. pneumoniae; sensitive to ceftriaxone Patient was extubated on 11/28; vasopressors where weaned off. Sedation was weaned off to on 11/29 Patient transferred out of the ICU on 11/30 For the pneumoniacontinue on ceftriaxone; for total of 7 days. airway clearance therapy with hypertonic saline and DuoNebs. Small bowel obstruction/ileusimproving on KUB. Responded well to lactulose enema. 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 Delirium precautions Continue IV Lasix twice daily. Abnormal EKG/? Chest pain: Rule out ACS, discussed with cardiology 11/25, echo without regional wall motion abnormality. Continue telemetry monitoring; cardiology evaluated the patientno further intervention required at the moment. Mechanical Fall Closed T8 spinal fracture Lumbar spine CT with oblique fracture through the anterior body of T8 which extends through the inferior endplate and likely involves the T8-T9 disc space. This fracture may be unstable. Mild prevertebral edema/hemorrhage is seen at the T8 level [facility] evaluated on 11/23-mobilization with physical therapy, not an area of spine amenable to bracing. No bending/lifting or twisting, good body mechanics and posture Pain control with Tylenol [id number], ketorolac and Dilaudid. Fall precautions PT OT reordered Nasal bone fractures No acute bleeding Continue ice, pain control Discussed with OFMS 11/24 no indication for surgery for now, follow-up with [facility] as an outpatient. Okay to resume his anticoagulation. Supratherapeutic INR : resolved. On Lovenox/Coumadin overlap. 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 : Remote history . anticoagulation. On Lovenox/Coumadin overlap Uncontrolled DM II HbA1c 10.5 in Aug , A1c better this admission Hold home agents Basal/bolus insulin per protocol while in-patient BSG AC HS Seizure disorder Continue home Depakote, Dilantin and topiramate BLE neuropathy Gabapentin dose recently changed to 200mg TID BPH On Flomax and Proscar Bladder scan PRN Chronic lymphedema Chronic Venous insufficiency No open wounds Monitor for volume overload Gout Continue allopurinol Solitary kidney As per records DVT Ppx: Hep drip Code status: FULL PCP: O[place]carina Dispo: Patient admitted for multiple issues including bilateral pneumonia, ileus, vertebral fracture, nasal fracture. Will likely need rehab. Case management on board. Updated his Sister Lo at bedside today. She appreciated the update. Answer question/queries Time spent evaluating patient, direct bedside care, chart review, placing orders, interpretation of diagnostic studies, discussion with consultants, patient, and family members, as well as other required patient management activities is 50 minutes Please note the above document was generated using voice recognition software. It may contain grammatical, syntax or spelling errors. Any formal questions or concerns about the content, text or information contained within the body of this dictation should be directly addressed to the provider for clarification Admission and Anticipated Discharge Date Admission Date: November 23, 2023 Subjective Patient seen and examined at bedside. He is out of the bed on the chair; appears comfortable He continues to report pain in bilateral lower extremity Review of Systems Review of Systems: All systems reviewed & are unremarkable except as noted in Subjective Physical Exam Physical Exam: GENERAL: Awake, alert, oriented to self and place. HEENT: No pallor, no icterus. Pupils equal, round and reactive to light. Oral mucosa dry. NECK: No JVD, no neck masses. nasal bridge swelling. HEART: S1 and S2 heard. Regular rate and rhythm. No murmur, no gallop. RESPIRATORY SYSTEM: Decreased breath sound at bases. ABDOMEN: Abdomen distention improved. Nontender CENTRAL NERVOUS SYSTEM: Grossly moves all extremities. EXTREMITIES: chronic lymphedema, no erythema seen. Results & Data Results & Data Vital Signs (Past 12 Hours) Vital Signs Temp Pulse Resp BP Pulse Ox O2 Del Method O2 Flow Rate 12/03/23 13:02 92 H 18 96 Nasal Cannula 2 12/03/23 11:26 36.4 C L 103 H 21 110/68 94 Nasal Cannula 3 12/03/23 08:00 Nasal Cannula 3 12/03/23 07:19 36.4 C L 85 21 143/76 H 96 Nasal Cannula 3 12/03/23 07:17 80 18 95 Nasal Cannula 3 12/03/23 03:07 36.5 C 97 H 22 149/66 H 91 Nasal Cannula 3
--- NOTE | 2023-12-03 14:44 | Fluoroscopy Report ---
VIDEO SWALLOW STUDY CLINICAL HISTORY: Aspiration. COMPARISON STUDY: No priors. FLUOROSCOPY TIME: 1.[address] DOSE: 10.3 mGy FINDINGS: Fluoroscopic guidance is provided to department of speech pathology in performing a video s wallow study. The patient consumed barium impregnated pudding, cracker with paste, nectar thick liqui ds, and thin barium while the swallowing mechanism was observed in real-time. No penetration or aspir ation was seen with any of the sampled textures. IMPRESSION: No penetration or aspiration was seen with any of the sampled textures. See dedicated spe ech pathology report for detailed findings and recommendations. Electronically signed by: Alfredo Cade M.D. 12/03/2023 2:43 PM
[2023-12-03] MEDS ORDERED: ENOXAPARIN 1 MG/KG SC SCH (14:45)
[2023-12-03] MEDS: POLYETHYLENE (MIRALAX) 17 GM PACK PO SCH (16:41)
[2023-12-03] MEDS: ENOXAPARIN INJ 120 MG/0.8 ML SYR SQ SCH (16:42)
[2023-12-03] MEDS: WARFARIN SOD 5 MG TAB PO SCH (16:43)
[2023-12-03] MEDS: VALPROIC ACID SOLN 500 MG/10 ML UDC PO SCH ×2 (16:43→20:37)
[2023-12-03] MEDS ORDERED: Nursing to Pharmacy Communication SCH (17:00)
[2023-12-03] MEDS ORDERED: DEXTROSE 50% 50 ML SYRINGE IV PRN (17:34)
[2023-12-03] MEDS ORDERED: CARBOHYDRATES FOR HYPOGLYCEMIA PO PRN (17:34)
[2023-12-03] MEDS ORDERED: GLUCOSE 10 TAB/TUBE PO PRN (17:34)
[2023-12-03] MEDS ORDERED: GLUCAGON FOR INJ 1 MG VIAL SQ PRN (17:34)
[2023-12-03] MEDS ORDERED: GLUCOSE 40% GEL 15 GM TUBE PO PRN (17:34)
[2023-12-03] MEDS: ALUMINUM/MAGNESIUM SUSP 30 ML UDC PO STA (18:15)
[2023-12-03] MEDS: HYDROmorphone INJ 1 MG/ML SYRINGE IV STA (18:17)
[2023-12-03] MEDS: INSULIN ASPART PER UNIT CHARGE SC SCH (18:20)
[2023-12-03] MEDS: OPTIRAY 320 100ml IV ONE (18:46)
[2023-12-03] MEDS: METOPROLOL TARTRATE 1 MG/ML VIAL IV STA (19:03)
[2023-12-03] MEDS: SODIUM CHLORIDE 0.9% 500 ML IV ONE (19:04)
[2023-12-03] MEDS: HYDROmorphone INJ 1 MG/ML SYRINGE IV PRN (19:15)
--- NOTE | 2023-12-03 19:15 | CT Scan Report ---
Exam(s): CT ABDOMEN + PELVIS With Contrast IV Amt: 90 ML OPTIRAY 320 EXAM: CT Abdomen and Pelvis With Intravenous Contrast CLINICAL HISTORY: Reason for exam: Severe abdominal pain after eating. TECHNIQUE: Axial computed tomography images of the abdomen and pelvis with intravenous contrast. CTDI is 34.09 mGy and DLP is 2079.86 mGy-cm. Automated exposure control was utilized for the study. A dose lowering technique was utilized adhering to the principles of ALARA. CONTRAST: Patient received 90 ML OPTIRAY 320 of IV contrast COMPARISON: CT abdomen/pelvis on 11/26/2023 FINDINGS: Lung bases: Dependent consolidations bilaterally may represent atelectasis versus pneumonia. Pleural space: Small bilateral pleural effusions. ABDOMEN: Liver: Hepatomegaly. Gallbladder and bile ducts: Unremarkable. No calcified stones. No ductal dilation. Pancreas: Atrophy of the pancreas. No ductal dilation. Spleen: Mild splenomegaly. Adrenals: Unremarkable. No mass. Kidneys and ureters: Right nephrectomy change. Nonspecific left perinephric fat stranding. No hydronephrosis or obstructing stone. Stomach and bowel: Unremarkable. No mucosal thickening. No bowel obstruction or inflammation. PELVIS: Appendix: Normal appendix. Bladder: The catheter and an underdistended bladder limits evaluation. Reproductive: Unremarkable as visualized. Subperitoneal space: Small amount of presacral fluid. Small amount of fluid in the lower abdomen. ABDOMEN and PELVIS: Intraperitoneal space: Unremarkable. No free air. No significant fluid collection. Bones/joints: Stable fracture and the inferior aspect of T8. Stable mild superior endplate depression of L3. Degenerative changes of the spine. Old right-sided rib fracture deformities. No dislocation. Soft tissues: Probable evolving hematomas within the left psoas muscle, measuring approximately 0.7 x 2.5 x 13.9 cm, and left quadratus lumborum muscle, measuring approximately 7.8 x 6.5 x 8.4 cm. Body wall edema. Small fat-containing umbilical hernia. Moderate fat-containing upper ventral hernia. Vasculature: Unremarkable. No abdominal aortic aneurysm. Lymph nodes: Unremarkable. No enlarged lymph nodes. IMPRESSION: 1. Dependent consolidations bilaterally may represent atelectasis versus pneumonia. 2. Small bilateral pleural effusions. 3. Probable evolving hematomas within the left psoas muscle, measuring approximately 0.7 x 2.5 x 13.9 cm, and left quadratus lumborum muscle, measuring approximately 7.8 x 6.5 x 8.4 cm. 4. Small amount of presacral fluid. Small amount of fluid in the lower abdomen. Electronically signed by: Shahrzad York M.D. 12/03/23 19:14 PM
[2023-12-03] MEDS ORDERED: SODIUM CHLORIDE 0.9% 250 ML IV PRN (19:23)
[2023-12-03 20:02] LABS: BUN Creatinine Ratio 22.3 (10-20); Calcium 7.4 mg/dl (8.6-10.3); Est GFR (African American) 87.9 ml/min; Est GFR (Non-African American) 75.9 ml/min; Potassium 3.6 mmol/L (3.5-5.1)
[2023-12-03 20:07] LABS: ALC (manual) 1.34 K/uL (1.2-3.4); ANC (manual) 10.26 K/uL (1.4-6.5); Eosinophils # (manual) 0.74 K/uL (0-0.50); Eosinophils % (manual) 5 %; Hematocrit (blood only) 31.2 % (42.0-52.0); Hemoglobin 10.3 g/dl (14.0-18.0); Lymphocytes # (manual) 1.34 K/uL (1.2-3.4); Lymphocytes % (manual) 9 %; Mean Corpuscular Hemoglobin 32.9 pg (25.0-34.0); Mean Corpuscular Volume 99.7 fL (80.0-100.0); Mean Platelet Volume 9.6 fL (9.4-12.4); Metamyelocytes # (manual) 0.45 K/uL (0-0); Metamyelocytes % (manual) 3 %; Monocytes % (manual) 2 %; Myelocytes # (manual) 1.78 K/uL (0-0); Myelocytes % (manual) 12 %; Neutrophils # (manual) 10.26 K/uL (1.40-6.50); Neutrophils % (manual) 69 %; Nucleated RBC % (auto) 0.7 %; Platelet Count 238 K/uL (130-400); Polychromasia 1+; RDW Coefficient of Variation 15.1 % (11.5-14.5); RDW Standard Deviation 54.7 fL (36.4-46.3); Red Blood Count 3.13 M/uL (4.70-6.10); White Blood Count 14.87 K/ul (4.8-10.8)
[2023-12-03] MEDS: PIPER/TAZO 4.5g in D5W MINI-B 100 ML IV ONE (20:25)
[2023-12-03] MEDS: SODIUM CHLORIDE 0.9% 1,000 ML IV SCH (20:32)
[2023-12-03] MEDS: PHYTONADIONE 5 MG in DEXTROSE 5% 50 ML IV ONE (20:33)
[2023-12-03] MEDS: PHENYTOIN SUSP 125 MG/5 ML PO SCH (20:38)
[2023-12-03] MEDS: MAGNESIUM HYDROXIDE SUSP 30 ML UDC PO SCH (20:39)
[2023-12-03] MEDS: GABAPENTIN 250 MG/5 ML 470 ML BTL PO SCH (20:49)
[2023-12-03] MEDS ORDERED: INSULIN ASPART PER UNIT CHARGE SC SCH (21:00)
[2023-12-03] MEDS ORDERED: VALPROIC ACID SOLN 250 MG/5 ML UDC PO SCH (21:00)
[2023-12-04] MEDS ORDERED: ERTAPENEM SODIUM 1,000 MG in SYRINGE 0 ML IV SCH (01:30)
[2023-12-04] MEDS: SODIUM CHLORIDE 0.9% 500 ML IV SCH (01:53)
[2023-12-04] MEDS ORDERED: PIPERACILLIN/TAZOBACTAM 4.5 GM in DEXTROSE 5% MINI-B 100 ML IV SCH (02:00)
[2023-12-04] MEDS: metroNIDAZOLE 500 MG/100 ML BAG IV SCH ×2 (02:30→11:47)
[2023-12-04] MEDS: CEFEPIME 2,000 MG in SYRINGE 0 ML IV SCH ×3 (02:49→22:45)
[2023-12-04 06:00] LABS: Albumin Globulin Ratio 0.8 (0.9-2); Albumin Level 2.6 gm/dl (3.4-5.0); BUN Creatinine Ratio 20.3 (10-20); Bilirubin,Total 0.6 mg/dl (0.2-1.0); Calcium 7.3 mg/dl (8.6-10.3); Creatinine Clr Calc Pharmacy 67.1 ml/min; Est GFR (African American) 56.7 ml/min; Globulin 3.1 gm/dl (2.5-4.0); Potassium 4.4 mmol/L (3.5-5.1); Total Protein 5.7 gm/dl (6.0-8.3)
[2023-12-04 06:01] LABS: ALC (manual) 0.61 K/uL (1.2-3.4); ANC (manual) 18.81 K/uL (1.4-6.5); Hemoglobin 12.1 g/dl (14.0-18.0); Lymphocytes # (manual) 0.61 K/uL (1.2-3.4); Lymphocytes % (manual) 3 %; Mean Corpuscular Hemoglobin 33.1 pg (25.0-34.0); Mean Corpuscular Hgb Conc 33.6 g/dL (32.0-36.0); Mean Corpuscular Volume 98.4 fL (80.0-100.0); Mean Platelet Volume 9.6 fL (9.4-12.4); Metamyelocytes % (manual) 1 %; Monocytes % (manual) 1 %; Myelocytes % (manual) 2 %; Neutrophils # (manual) 18.81 K/uL (1.40-6.50); Neutrophils % (manual) 93 %; Nucleated RBC # (auto) 0.18 K/uL (0.00-0.12); Nucleated RBC % (auto) 0.9 %; Platelet Count 229 K/uL (130-400); Polychromasia 1+; RDW Coefficient of Variation 15.9 % (11.5-14.5); RDW Standard Deviation 56.7 fL (36.4-46.3); Red Blood Count 3.66 M/uL (4.70-6.10); Toxic Vacuolation 1+; White Blood Count 20.23 K/ul (4.8-10.8)
[2023-12-04 06:06] LABS: ANTI-Xa, UFH(UnfractionatedHep 0.43 IU/ml (0.3-0.7); INR 1.1 (0.9-1.1); Prothrombin Time 11.7 Seconds (9.0-12.0)
[2023-12-04] MEDS ORDERED: METOPROLOL TARTRATE 1 MG/ML VIAL IV PRN (07:34)
--- NOTE | 2023-12-04 08:10 | XRay Report ---
SINGLE VIEW CHEST CLINICAL HISTORY: Respiratory distress. FINDINGS: An AP, portable, semierect chest radiograph is compared to study dated 11/30/2023. Correlati on is made with chest CT dated 11/26/2023. The examination is degraded by portable technique and apica l lordotic positioning. The patient's head partially obscures the apices. The heart is enlarged. Ther e is pulmonary vascular congestion and evidence of interstitial edema. There are layering pleural eff usions with dependent consolidation. No pneumothorax is seen. The skeletal structures are osteopenic. The bony thorax is grossly intact. Advanced arthritic change is seen in the shoulders. IMPRESSION: 1. Cardiomegaly with evidence of congestive failure. 2. Layering pleural effusions with dependent consolidation. This is similar to previous. ACT 112: Negative or not required by law. Electronically signed by: Alfredo Cade M.D. 12/04/2023 8:09 AM
[2023-12-04] MEDS: FUROSEMIDE 40 MG/4 ML VIAL IV ONE (08:15)
--- NOTE | 2023-12-04 08:53 | Pharmacy Report ---
Pharmacy Glycemic Short Note 2 - Date of Service December 04, 2023 - Glycemic Short BSG Results (Last 24 hours): 12/03/23 12/03/23 12/03/23 11:43 19:15 20:06 Glucose 161 H POC Glucose 171 H 121 H 12/04/23 12/04/23 05:23 07:27 Glucose 144 H POC Glucose 157 H OUTPATIENT ANTIDIABETIC REGIMEN: * Glipizide 10 mg PO BIDM * Tradjenta 5 mg PO daily * HbA1c: 7.5% (11/24/23) ASSESSMENT: 12/03: * Diet restarted yesterday, blood sugars ranging 112-171 mg/dL * Patient transferred to ICU this morning due to respiratory distress and concern for further decompensation * Now on pressors (norepinephrine and vasopressin) and Precedex for sedation * Will follow closely for insulin adjustments given change in clinical condition 12/01: * Patient received total of 24 units of insulin yesterday, of which 15 units were basal * Fasting BSG 122 mg/dL - will continue with scale for basal, still NPO Background: * 63 yo M admitted on 11/23/23 secondary to a fall. Patient aspirated on the morning of 11/26/23 and required intubation and transfer to the ICU. Pharmacy has been consulted to assist with inpatient glycemic management. Patient is a Type 2 diabetic as an outpatient. Please refer to outpatient regimen and most recent HbA1c above. * Eliseo was receiving 40 units of basal per day since admission with Novolog based on weight/stress of ~2 with adequate glycemic control. * Stressors have now changed significantly as patient is intubated and sedated. Ordered norepinephrine, vasopressin, fentanyl, propofol and heparin drips. Zosyn added for aspiration coverage. nt potassium was 3.7 mg/dL and is being replaced IV. * No insulin received yet today. Will d/c basal + bolus and start patient on insulin drip based on high stress and most recent BSG of 266 mg/dL. This will provide a 4 unit bolus followed by drip at a rate of 3.8 units/hr. Goal range is 110-180 mg/dL. Most rece * Will not transition patient off drip until clinical status improved and patient ready to be extubated. Will consider adding basal insulin tomorrow if patient improving. PLAN FOR INPATIENT GLYCEMIC CONTROL: * Hold outpatient oral diabetes medications * Basal insulin * Lantus 5 units SC daily * Lantus 0-5-10 units SC HS (see EHR for details, slightly loosened ranges) * Bolus insulin * NovoLog per scale ACHS or Q6hrs while NPO * Goal Range: Low 110 mg/dL - High 140 mg/dL * Correction Factor: 20 mg/dL/unit * Nutritional / Prandial insulin per carb ratio of 1 unit per 8 grams CHO consumed
[2023-12-04] MEDS ORDERED: STAT IV Infusion **Titration per Protocol STA ×4 (08:54→13:13)
[2023-12-04] MEDS: dexMEDEtomidine 200 MCG/50 ML BAG IV SCH (09:08)
[2023-12-04] MEDS: FOSPHENYTOIN IV SCH (09:22)
[2023-12-04] MEDS: SODIUM CHLORIDE IV SCH (09:22)
[2023-12-04] MEDS: VALPROATE SOD IV SCH (09:22)
[2023-12-04] MEDS: DEXTROSE 5% IV SCH (09:22)
[2023-12-04] MEDS: PHENYLEPHRINE/NSS 25 MG/250 ML BAG IV SCH (09:30)
[2023-12-04 09:31] LABS: Base Excess VBG -1.8 mEq/L; HCO3 VBG 23 mmol/L; Oxygen Saturation VBG < 60.0 %; PCO2 VBG 39 mmHg (38-50); PO2 VBG 27 mmHg; pH VBG 7.38 (7.36-7.41)
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
--- NOTE | 2023-12-04 10:17 | Billing Data ---
Date of Service December 04, 2023 Coding Level of Care Code 04643 CRITICAL CARE 1ST 30-74M Time Spent (min) 52
[2023-12-04] MEDS: PHENYLEPHRINE HCL 25 MG/250 ML NSS IV ONE (10:21)
[2023-12-04 11:12] LABS: WBC Urine Automated 0-5 /hpf (0-5)
[2023-12-04 11:26] LABS: BUN Creatinine Ratio 17.5 (10-20); Calcium 6.9 mg/dl (8.6-10.3); Creatinine Clr Calc Pharmacy 54.3 ml/min; Est GFR (African American) 43.9 ml/min; Est GFR (Non-African American) 37.9 ml/min; Magnesium 1.5 mg/dl (1.7-2.4); Potassium 3.8 mmol/L (3.5-5.1)
[2023-12-04 11:29] LABS: Bilirubin Urine 1+ (Negative); Blood Urine Negative (Negative); Color Urine Dark Yellow; Glucose Urine UA Negative (Negative); Ketones Urine Trace (Negative); Leukocyte Esterase Urine Negative (Negative); Nitrite Urine Negative (Negative); Protein Urine 1+ (Negative); Specific Gravity Urine 1.042 (1.000-1.030); Urobilinogen Urine Negative (Negative)
[2023-12-04 11:30] LABS: Appearance Urine Clear (Clear)
[2023-12-04 11:32] LABS: Thyroid Stimulating Hormone 3.328 uIu/ml (0.300-4.500)
[2023-12-04 11:33] LABS: Bacteria Urine Automated 1+ (None Seen)
[2023-12-04 11:34] LABS: Basophils # (auto) 0.04 K/uL (0.00-0.20); Basophils % (auto) 0.2 %; Eosinophils % (auto) 2.1 %; Hematocrit (blood only) 32.3 % (42.0-52.0); Hemoglobin 10.8 g/dl (14.0-18.0); Immature Granulocytes # (auto) 1.61 K/uL (0.01-0.20); Immature Granulocytes % (auto) 6.7 %; Lymphocytes % (auto) 2.5 %; Mean Corpuscular Hgb Conc 33.4 g/dL (32.0-36.0); Mean Corpuscular Volume 98.8 fL (80.0-100.0); Mean Platelet Volume 9.7 fL (9.4-12.4); Monocytes % (auto) 4.6 %; Neutrophils # (auto) 20.13 K/uL (1.40-6.50); Neutrophils % (auto) 83.9 %; Nucleated RBC # (auto) 0.34 K/uL (0.00-0.12); Nucleated RBC % (auto) 1.4 %; Platelet Count 245 K/uL (130-400); Polychromasia 1+; RDW Coefficient of Variation 16.1 % (11.5-14.5); RDW Standard Deviation 58.8 fL (36.4-46.3); Red Blood Count 3.27 M/uL (4.70-6.10); Toxic Granulation 1+; Toxic Vacuolation 1+; White Blood Count 23.98 K/ul (4.8-10.8)
--- NOTE | 2023-12-04 11:34 | Procedure Note ---
Procedure Note Date of Service December 04, 2023 Note Right INTERNAL JUGULAR CENTRAL LINE PROCEDURE NOTE: Procedure: Internal Jugular Central Line Placement Indication: Central Drug Administration, Poor Venous Access, Multiple Lab Draws Necessary, etc. Anesthesia: 8 mL lidocaine 1% Consent was signed by the patient's sister as the patient is currently encephalopathic and not decisional and placed on the chart prior to procedure. Indication, risks, and benefits were explained at length. A time-out was completed verifying correct patient, procedure, site, positioning, and implants(s) or special equipment if applicable. Patients right neck was cleansed and draped in the typical sterile fashion using Chloraprep. The Internal Jugular Vein and Carotid Artery were identified using ultrasound. The superficial tissue was anesthetized using 8 mL of 1% lidocaine without epinephrine under direct visualization with the ultrasound. After adequate anesthetization was achieved, the Internal Jugular vein was cannulated under direct ultrasound guidance using an introducer needle on a syringe. Good venous blood return was maintained prior to removal of syringe from introducer needle. Using Seldinger Technique, a guide wire was advanced through the introducer needle without resistance. The introducer needle was removed and ultrasound images were obtained of the guide wire within the Internal Jugular Vein and saved to the patients medical record. A small incision was made in penetrating fashion at the guide wire insertion site utilizing an 11 blade scalpel. The dilator was advanced to the vessel without resistance. The dilator was exchanged for the triple lumen catheter which was advanced into the vessel without resistance. The guide wire was removed intact from the catheter without issue. Claves were placed on each catheter tip with confirmation of good blood flow from each lumen. Each port was easily flushed with sterile saline. The catheter was placed at 15 cm and sutured in place. BioPatch was applied to the catheter and a sterile Tegaderm dressing was applied over the catheter with careful attention to sterility. Patient tolerated procedure well. No immediate complications were met. Post procedure x-ray is pending Ultrasound guidance was used for the procedure. Coding CPT Codes Tubes, Drains, and Vasc Access - Tubes, Drains, and Vasc Access: [id number] Place catheter in vein superior or inferior vena cava ([id number]) Tubes, Drains, and Vasc Access - Tubes, Drains, and Vasc Access: [id number] Ultrasound Guidance For Vascular ([id number]) [facility] [place], [place] Procedure Codes (Charges) Tubes, Drains, and Vasc Access Procedure 1: Tubes, Drains, and Vasc Access: [id number] Place catheter in vein superior or inferior vena cava Procedure 2: Tubes, Drains, and Vasc Access: [id number] Ultrasound Guidance For Vascular
[2023-12-04] MEDS: NOREPINEPHRINE/D5W 4 MG/250 ML PLCT IV SCH (11:47)
[2023-12-04] MEDS: MAGNESIUM SULFATE / D5W 1 GM/100 ML BAG IV SCH (11:47)
--- NOTE | 2023-12-04 12:18 | XRay Report ---
SINGLE VIEW CHEST CLINICAL HISTORY: Central venous catheter placement. FINDINGS: 2 AP, portable, supine chest radiographs are compared to study performed earlier the same d ay 12/04/2023. Correlation is made with chest CT dated 11/26/2023. The examination is degraded by portab le technique and apical lordotic positioning. The patient's head partially obscures the apices. A rig ht internal jugular central venous catheter has been placed. The tip of the catheter projects over th e right atrium. The heart is enlarged. There is pulmonary vascular congestion and evidence of interst itial edema. There are layering pleural effusions with dependent consolidation. No pneumothorax is se en. The skeletal structures are osteopenic. The bony thorax is grossly intact. Advanced arthritic kulwinder nge is seen in the shoulders. IMPRESSION: 1. A right internal jugular central venous catheter has been placed as above. No pneumothorax is seen post procedure 2. Cardiomegaly with evidence of congestive failure and pulmonary edema. This has worsened from today 's earlier examination. 3. Layering pleural effusions with dependent consolidation. This is likely similar to previous. ACT 112: Negative or not required by law. Electronically signed by: Alfredo Cade M.D. 12/04/2023 12:17 PM
--- NOTE | 2023-12-04 12:20 | Hospitalist Progress Note ---
Date of Service December 04, 2023 Assessment & Plan (1) Fall: (2) Closed T8 spinal fracture: (3) Nasal bone fracture: (4) Supratherapeutic INR: (5) Seizure disorder: (6) Current long-term use of 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 medication with history of deep venous thrombosis (DVT): (7) T2DM (type 2 diabetes mellitus): (8) HLD (hyperlipidemia): (9) Lymphedema: Plan 63yo M with a PMH of DM II, dyslipidemia, venous insufficiency, history of liver failure, BPH, DVT in 2011 on coumadin, venous insufficiency, history of generalized convulsive epilepsy, history of a solitary kidney and other medical problems listed below who presents from home after a fall. Patient was found to have closed T8 spinal fracture for which Ortho spine was consulted on 11/23; recommended mobilization with physical therapy, not an area of spine amenable to bracing. No bending/lifting or twisting, good body mec hanics and posture. He also had nasal bone fracture for which O [facility]MS was consulted; no indication for surgery. Follow-up with oral surgery as outpatient. Patient had a code purple 11/25 AM, was hypoxic/altered/vomiting --> intubated 11/25 and transferred to ICU. CT head with no acute finding. CT abdomen pelvis with findings suggestive of SBO and lower lung consolidation suggestive of pneumonia or aspiration pneumonitis. CT chest suggestive of extensive bilateral lower lobe consolidation, pneumonia versus aspiration pneumonitis. BAL Cx positive of K. pneumoniae; sensitive to ceftriaxone Patient was extubated on 11/28; vasopressors where weaned off. Sedation was weaned off to on 11/29 Patient transferred out of the ICU on 11/30 Video swallow evaluation was done on 12/02; patient was started on a diet On evening of 12/02patient complaining of severe abdominal pain. CT abdomen/pelvis showed hematomas on left psoas muscle and left quadratus lumborum muscle. Discussion was done with on-call surgeon; recommended supportive care; will need IR guided drainage if patient develops abscess in the region. Patient was transfused 2 unit of blood; bolus of IV fluids given On the morning of 12/03; patient was delirious; tachypneic and not directable. He was on 15 L of oxygen by nonrebreather. Stat chest x-ray showed pulmonary edema. Patient was given 1 dose of IV Lasix. He was transferred back to ICU after discussion with the home care chaplain. Altered mental status(delirium OR metabolic encephalopathy) likely secondary to underlying infectious process/pain. On Precedex drip in ICU. On lactulose for possible hepatic encephalopathy Retroperitoneal hematoma on 12/02 patient complaining of severe abdominal pain. CT abdomen/pelvis showed hematomas on left psoas muscle and left quadratus lumborum muscle. Discussion was done with on-call surgeon; recommended supportive care; will need IR guided drainage if patient develops abscess in the region. Was given 2 units of blood. Monitor CBC. Transfusion as needed. Hold any anticoagulation Acute hypoxic respiratory failure Pneumonia Acute on chronic diastolic heart failure BAL Cx positive of K. pneumoniae; sensitive to ceftriaxone Last chest x-ray personally reviewed; pulmonary edema and bilateral basal lobe consolidation Currently on cefepime. Patient had previously received Zosyn and ceftriaxone Airway clearance therapy with hypertonic saline and DuoNebs. Wean off oxygen as tolerated IV Lasix as needed Acute kidney injury Likely secondary to sepsis/cardiorenal syndrome Creatinine up trended from 0.67-1.83 today Urine output of 800 cc in last 24 hours Continue support hemodynamics; continue antibiotics IV Lasix as needed Small bowel obstruction Earlier during the hospitalization; patient had developed ileus with small bowel obstruction. CT abdomen pelvis from 12/02no suggestion of bowel obstruction/inflammation On lactulose enema Mechanical Fall Closed T8 spinal fracture Lumbar spine CT with oblique fracture through the anterior body of T8 which extends through the inferior endplate and likely involves the T8-T9 disc space. This fracture may be unstable. Mild prevertebral edema/hemorrhage is seen at the T8 level [facility] evaluated on 11/23-mobilization with physical therapy, not an area of spine amenable to bracing. No bending/lifting or twisting, good body mechanics and posture Pain control with Tylenol [id number], ketorolac and Dilaudid. Fall precautions PT OT reordered Nasal bone fractures No acute bleeding Continue ice, pain control Discussed with [facility] 11/24 no indication for surgery for now, follow-up with O [facility]MS as an outpatient. Okay to resume his anticoagulation. 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 : Remote history . Anticoagulation on hold Uncontrolled DM II HbA1c 10.5 in Aug , A1c better this admission Hold home agents Basal/bolus insulin per protocol while in-patient BSG AC HS Seizure disorder Continue home Depakote, Dilantin and topiramate BLE neuropathy Gabapentin dose recently changed to 200mg TID BPH On Flomax and Proscar Bladder scan PRN Chronic lymphedema Chronic Venous insufficiency No open wounds Monitor for volume overload Gout Continue allopurinol Solitary kidney As per records DVT Ppx: SCDs for now Code status: FULL PCP: Cruz Dispo: Patient transferred to ICU for acute decompensation. He is currently requiring vasopressors, sedation. Patient has multiple medical issues presently; I discussed with his sister over the phone today. Updated her on events from yesterday/today. Answer questions/queries. Prognosis is guarded given multiple medical issues concurrently going on. Time spent evaluating patient, direct bedside care, chart review, placing orders, interpretation of diagnostic studies, discussion with consultants, patient, and family members, as well as other required patient management activities is 75 minutes Please note the above document was generated using voice recognition software. It may contain grammatical, syntax or spelling errors. Any formal questions or concerns about the content, text or information contained within the body of this dictation should be directly addressed to the provider for clarification Admission and Anticipated Discharge Date Admission Date: November 23, 2023 Subjective Patient informed by RN that he use tachypneic and was requiring 15 L of oxygen per minute by nonrebreather mask Patient was seen and examined at bedside. He is oriented to self; does not follow commands. He appears tachypneic; trying to take of the mask. Decreased breath sound at bases; crackles heard. Review of Systems Review of Systems: Unobtainable due to cognitive status Physical Exam Physical Exam: GENERAL: Agitated, appears in respiratory distress. Oriented to self. HEENT: No pallor, no icterus. Pupils equal, round and reactive to light. Oral mucosa dry. NECK: No JVD, no neck masses. nasal bridge swelling. HEART: S1 and S2 heard. Regular rate and rhythm. No murmur, no gallop. RESPIRATORY SYSTEM: Decreased breath sound at bases; crackles otherwise ABDOMEN: Abdomen distention improved. Nontender CENTRAL NERVOUS SYSTEM: Grossly moves all extremities. EXTREMITIES: chronic lymphedema, no erythema seen. Results & Data Results & Data Vital Signs (Past 12 Hours) Vital Signs Temp Pulse Pulse Pulse Resp BP BP 12/04/23 10:13 135 H 35 H 12/04/23 07:30 12/04/23 07:28 36.8 C 132 H 132 H 20 12/04/23 03:32 37.3 C 95 H 17 104/61 12/04/23 02:43 36.9 C 94 H 16 101/62 12/04/23 02:10 36.9 C 94 H 18 108/66 12/04/23 02:03 92 H 16 12/04/23 01:10 37.1 C 96 H 18 96/56 L 12/04/23 00:40 37.1 C 93 H 16 94/60 L 12/04/23 00:25 37.1 C 94 H 16 89/55 L BP Pulse Ox O2 Del Method O2 Flow Rate FiO2 12/04/23 10:13 95 60 12/04/23 07:30 Non-rebreather 15 12/04/23 07:28 119/66 88 L Oxymask 12/04/23 03:32 92 Oxymask 3 12/04/23 02:43 92 5 12/04/23 02:10 92 5 12/04/23 02:03 93 Oxymask 5 12/04/23 01:10 91 5 12/04/23 00:40 91 5 12/04/23 00:25 90 5
[2023-12-04] MEDS: LACTATED RINGER'S 500 ML IV ONE (12:23)
[2023-12-04] MEDS: LACTULOSE 200GM/700ML WTR ENEMA PR SCH (13:23)
[2023-12-04] MEDS: ACETAMINOPHEN 1,000 MG/100 ML VIAL IV PRN (13:23)
--- NOTE | 2023-12-04 13:25 | Procedure Note ---
Procedure Note Date of Service December 04, 2023 Note ARTERIAL LINE PROCEDURE NOTE: Procedure: Arterial Line Placement Indication: Monitoring on Pressors Anesthesia: Precedex/5 mL lidocaine 1% Emergency consent was implied given the patient's significant hypotension requiring escalating doses of vasopressors. A time-out was completed verifying correct patient, procedure, site, positioning, and implant(s) or special equipment if applicable. Patients right wrist was prepped and draped in the usual sterile fashion. Ultrasound guidance was used to aid needle placement. A 20g Arrow arterial line was introduced into the right artery. Catheter was threaded, and the needle was removed with appropriate blood return. Good waveform was observed. The patient tolerated the procedure well. Blood Loss: Minimal Complications: None Coding
[2023-12-04] MEDS ORDERED: cefTRIAXone SODIUM 2,000 MG/50 ML BAG IV SCH (13:30)
[2023-12-04 13:39] LABS: iSTAT Art Bld Gas pCO2 Correct 35 mmHg (35-46); iSTAT Art Bld Gas pH Corrected 7.397 (7.35-7.45); iSTAT Arterial Blood Gas HCO3 21 meg/L (19-24); iSTAT Arterial Blood Gas pCO2 32 mmHg (35-46); iSTAT Arterial Blood Gas pH 7.43 (7.35-7.45); iSTAT Arterial Blood Gas pO2 71 mmHg (80-95); iSTAT Arterial Blood Gas pO2 C 84; iSTAT Carbon Dioxide 22 mmol/L (24-31); iSTAT FiO2 50 %; iSTAT Hematocrit 30 % (42-52); iSTAT Hemoglobin 10.2 g/dl (14.0-18.0); iSTAT Site Art Line; iSTAT Sodium 138 mmol/L (135-144)
[2023-12-04] MEDS: VASOPRESSIN 20 UNITS in 0.9 % SODIUM CHLORIDE 100 ML IV SCH (14:09)
[2023-12-04] MEDS: DOXYCYCLINE HYCLATE 100 MG in DEXTROSE 5% MINI-B 100 ML IV SCH (14:12)
[2023-12-04] MEDS: LANTUS PER UNIT CHARGE SQ SCH (21:34)
[2023-12-04 22:21] LABS: A calco-baum cmplx NotReported Not Detected (NotDetected); Bact fragilis Not Reported Not Detected (NotDetected); Blood Culture Id Panel PCR Panel Negative (NotDetected); C auris Not Reported Not Detected (NotDetected); Calbicans Not Reported Not Detected (NotDetected); Candida glabrata Not Reported Not Detected (NotDetected); Candida krusei Not Reported Not Detected (NotDetected); Cneoformans/gatti Not Reported Not Detected (NotDetected); Cparapsilosis Not Reported Not Detected (NotDetected); E cloacae compx Not Reported Not Detected (NotDetected); Efaecalis Not Reported Not Detected (NotDetected); Efaecium Not Reported Not Detected (NotDetected); Enterobacterales Not Reported Not Detected (NotDetected); Escherichia coli Not Reported Not Detected (NotDetected); H influenzae Not Reported Not Detected (NotDetected); K aerogenes Not Reported Not Detected (NotDetected); Koxytoca Not Reported Not Detected (NotDetected); Kpneumoniae grp Not Reported Not Detected (NotDetected); Lmonocyt Not Reported Not Detected (NotDetected); N meningitidis Not Reported Not Detected (NotDetected); P aeruginosa Not Reported Not Detected (NotDetected); Proteus spp Not Reported Not Detected (NotDetected); Salmonella spp Not Reported Not Detected (NotDetected); Smarcescens Not Reported Not Detected (NotDetected); Staph lugdunensis Not Reported Not Detected (NotDetected); Staph spp. Not Reported Not Detected (NotDetected); Staphaureus Not Reported Not Detected (NotDetected); Staphepi Not Reported Not Detected (NotDetected); Stenmaltophilia Not Reported Not Detected (NotDetected); Strep agal(GrpB) Not Reported Not Detected (NotDetected); Strep pneum Not Reported Not Detected (NotDetected); Strep pyog (GrpA) Not Reported Not Detected (NotDetected); Strep spp Not Reported Not Detected (NotDetected)
[2023-12-05] MEDS: LACTATED RINGER'S 250 ML IV ONE (00:31)
[2023-12-05 06:12] LABS: Prothrombin Time 10.5 Seconds (9.0-12.0)
[2023-12-05 06:28] LABS: BUN Creatinine Ratio 22.5 (10-20); Calcium 6.8 mg/dl (8.6-10.3); Creatinine Clr Calc Pharmacy 55.8 ml/min; Est GFR (African American) 45.4 ml/min; Est GFR (Non-African American) 39.2 ml/min; Magnesium 2.3 mg/dl (1.7-2.4); Phosphorus 4.1 mg/dl (2.5-4.9); Potassium 3.9 mmol/L (3.5-5.1)
[2023-12-05] MEDS: dexMEDEtomidine 400 MCG/100 ML BAG IV SCH (07:17)
[2023-12-05 07:53] LABS: Basophils # (auto) 0.06 K/uL (0.00-0.20); Basophils % (auto) 0.3 %; Eosinophils # (auto) 0.71 K/uL (0.00-0.50); Eosinophils % (auto) 3.2 %; Hematocrit (blood only) 31.5 % (42.0-52.0); Hemoglobin 10.5 g/dl (14.0-18.0); Immature Granulocytes # (auto) 1.71 K/uL (0.01-0.20); Immature Granulocytes % (auto) 7.7 %; Lymphocytes # (auto) 2.13 K/uL (1.20-3.40); Lymphocytes % (auto) 9.5 %; Mean Corpuscular Hemoglobin 32.9 pg (25.0-34.0); Mean Corpuscular Hgb Conc 33.3 g/dL (32.0-36.0); Mean Corpuscular Volume 98.7 fL (80.0-100.0); Mean Platelet Volume 9.5 fL (9.4-12.4); Monocytes # (auto) 1.76 K/uL (0.11-0.59); Monocytes % (auto) 7.9 %; Neutrophils # (auto) 15.97 K/uL (1.40-6.50); Neutrophils % (auto) 71.4 %; Nucleated RBC # (auto) 0.16 K/uL (0.00-0.12); Nucleated RBC % (auto) 0.7 %; Platelet Count 227 K/uL (130-400); RDW Coefficient of Variation 16.3 % (11.5-14.5); RDW Standard Deviation 59.4 fL (36.4-46.3); Red Blood Count 3.19 M/uL (4.70-6.10); White Blood Count 22.34 K/ul (4.8-10.8)
[2023-12-05] MEDS: LANTUS PER UNIT CHARGE SQ SCH (08:03)
[2023-12-05] MEDS ORDERED: Nursing to Pharmacy Communication SCH (09:45)
[2023-12-05] MEDS: CALCIUM GLUCONATE 1,000 MG/60 ML BAG IV SCH (09:45)
[2023-12-05] MEDS: LACTULOSE SYRUP 20 GM/30 ML UDC PO SCH (10:55)
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
--- NOTE | 2023-12-05 11:34 | Critical Care Progress Note ---
Date of Service December 05, 2023 Assessment & Plan (1) Fall: (2) Closed T8 spinal fracture: (3) Nasal bone fracture: (4) Supratherapeutic INR: (5) Seizure disorder: (6) Current long-term use of 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 medication with history of deep venous thrombosis (DVT): (7) T2DM (type 2 diabetes mellitus): (8) HLD (hyperlipidemia): (9) Lymphedema: (10) Hepatic encephalopathy: (11) Acute hypoxic respiratory failure: (12) Septic shock: Plan Neuro: Alteration in mental status with significant improvement compared to yesterday, likely due to metabolic encephalopathy in the setting of infection, could also be secondary to hyperammonemia vs. uremia vs. other Epilepsy - Home antiepileptic regimen consists of Depakote, Dilantin, and Topamax. Continue IV Depakote and Dilantin, hold Topamax. Precedex for sedation/anxiolysis Cardiac: Hemodynamic instability likely secondary to septic shock, less likely due to blood loss as serial hemoglobin has held fairly consistent. Overall pressor requirements decreasing, maintain pressor support with target MAP>75 Repeat TTE 12/03 with limited views, EF 60-65%, normal LV wall motion Resp: Acute on chronic hypoxic respiratory failure SpO2 improved today, satting in mid-90s on 4L via oxymask Continue abx for presumed aspiration pneumonia GI: H/o liver failure/hyperammonemia, AM ammonia WNL, continue lactulose SBO - resolved CT abdomen/pelvis 12/02 significant for hematoma formation in left psoas and left QL - consider repeat CT A/P if persistently febrile/if infectious source remains unclear Renal: KEYANNA, AM BMP significant for Cr of 1.78 (baseline <1) Continue to monitor kidney function and electrolytes, target K>4, Mg>2 Target MAP >75 for adequate kidney perfusion Nephrology consulted, appreciate recs Patient overall with significant positive fluid balance, consider diuresis upon improvement in kidney function : Strict I/Os, monitor for adequate urine output - patient given additional 250mL LR overnight with transient improvement in urine output Endo: ICU hyperglycemia protocol, blood glucose checks, maintain euglycemia Heme: Persistently elevated WBC count in the setting of infection AM hemoglobin 10.5 - low suspicion for ongoing blood loss but will continue to monitor due to previously noted left psoas/QL hematoma ID: Persistently elevated WBC count, patient has also been persistently febrile since yesterday afternoon - unclear source for infection Blood cx 12/03 one sample with preliminary positive for gram positive bacilli, second sample negative Nasal MRSA negative Will repeat blood cx today Urine cx negative Continue empiric abx with Cefepime, Flagyl, and Doxy Lines/Access: Left peripheral IV/US-guided peripheral IV Right IJ central line Right radial arterial line DVT ppx: held in the setting of psoas/QL hematoma formation Admission and Anticipated Discharge Date Admission Date: November 23, 2023 Supervising Physician Co-Signing Physician Notes Patient seen and examined with resident physician. Agree with the note as above unless any additions/exceptions are noted: Patient markedly improved from mental status standpoint today. Agitated at times, but able to reorient. Pressor requirements are improving. Remains on vasopressin and low-dose Levophed. Fever curve improving as well. Treating for presumptive aspiration pneumonia. Other sources of infection include infected hematoma and retroperitoneal space. Discussed with radiology today about placement of the pigtail catheter and the hematoma, but at this time they would defer placement due to concerns of potential for brisk bleeding. If hemodynamics worsening fever curve worsens, will likely rescan his abdomen and pelvis and potentially refer the patient to tertiary center for IR evaluation. Continue broad-spectrum antibiotics at this time. He urine output is improving along with creatinine. Appreciate nephrology input. Echo results reviewed with a normal EF. Continue to wean Precedex as able as an agitation improves. Patient able to take p.o. and will advance diet as tolerated. Patient remains hypoxemic requiring supplemental oxygen likely from volume overload. Will consider diuresis if blood pressure allows. Blood cultures growing gram-positive rods from 12/04/2023. Possible contaminant. Repeat blood cultures pending. Additionally, AST trending upwards to 114 from 51, but alk phos improved. Possible ischemic hepatitis. Continue to trend. Continue lactulose given history of hyperammonemia related to valproic acid. Continue chronic seizure medications. Phenytoin level pending. Holding anticoagulation at this time due to spontaneous hematoma noted in the retroperitoneal space. Hemoglobin has remained stable. Physical exam Constitutional: Patient appears to be of their stated age. Patient is in no apparent distress. Patient is well-developed. Eyes: Pupils are equal round and reactive to light. Conjunctivae are normal. Anicteric sclera. Ears nose, mouth and throat: Mallampati class 2. Normal posterior oropharynx. Uvula is midline. Neck: Trachea is midline. Visual inspection is normal. Right IJ triple-lumen catheter in place. Right radial arterial line in place. Respiratory: Diminished bilaterally with lower lobe crackles noted. Cardiovascular: Regular rate and rhythm. No murmurs. Diffusely edematous Gastrointestinal: Normal bowel sounds, soft, nontender and nondistended. No hepatosplenomegaly noted. Musculoskeletal: No cyanosis. Patient is able to move all extremities. Strength is 5 out of 5 in the upper and lower extremities. Skin: No rashes, warm dry and intact. Neurologic: No obvious focal neurological deficits seen. Psychiatric: Alert and oriented x3 with a euthymic affect. CRITICAL CARE TIME - I have personally spent 38 minutes of critical care time in the direct management of this patient. This is a life/limb threatening event. This includes time spent evaluating patient, direct bedside care, chart review, placing orders, interpretation of diagnostic studies, discussion with consultants, patient, and family members, as well as other required patient management activities. This time is exclusive of all separately billable procedures, and teaching time and separate from and in addition to any other critical care service time. Subjective Patient seen at bedside this morning, notably improved mentation though still only oriented to self. Review of Systems Review of Systems: Unobtainable due to cognitive status Physical Exam Physical Exam: General: Resting in bed, oxymask in place, patient in no acute distress Respiratory: No conversational dyspnea appreciated Abdominal: mildly distended. non-tender to palpation. Extremities: Moderate lower extremity pitting edema bilaterally, feet slightly cold to touch but peripheral pulses intact Neuro: Oriented to self but not to place or time Results & Data Results & Data Vital Signs (Past 12 Hours) Vital Signs Temp Pulse Pulse Resp BP BP BP 12/05/23 09:00 77 28 H 12/05/23 08:30 73 29 H 12/05/23 08:30 137/42 L 12/05/23 08:06 12/05/23 08:02 154/52 H 12/05/23 08:01 72 34 H 12/05/23 08:01 114/58 L 12/05/23 08:00 69 12/05/23 08:00 67 12/05/23 06:07 37.9 C H 69 25 H 111/60 12/05/23 05:02 70 28 H 120/55 L 12/05/23 04:00 37.7 C H 69 27 H 119/62 12/05/23 03:20 69 20 12/05/23 03:00 71 28 H 115/54 L 12/05/23 02:30 70 29 H 12/05/23 02:00 38.3 C H 71 29 H 122/66 12/05/23 01:00 72 29 H 12/05/23 00:00 73 27 H 12/05/23 00:00 38.3 C H 72 29 H 106/61 Pulse Ox O2 Del Method O2 Flow Rate FiO2 12/05/23 09:00 96 12/05/23 08:30 97 12/05/23 08:30 12/05/23 08:06 Oxymask 4 12/05/23 08:02 12/05/23 08:01 95 Oxymask 4 12/05/23 08:01 12/05/23 08:00 12/05/23 08:00 12/05/23 06:07 99 BiPAP 40 12/05/23 05:02 97 BiPAP 40 12/05/23 04:00 98 BiPAP 40 12/05/23 03:20 95 40 12/05/23 03:00 95 BiPAP 40 12/05/23 02:30 98 BiPAP 40 12/05/23 02:00 99 BiPAP 40 12/05/23 01:00 98 BiPAP 40 12/05/23 00:00 97 BiPAP 40 12/05/23 00:00 98 BiPAP 40 Resident Activity Tracking Resident Involvement: Resident Care Provided Care Provided: Adult [facility] Medicine
--- NOTE | 2023-12-05 11:35 | Billing Data ---
Date of Service December 05, 2023 Coding Level of Care Code 79894 CRITICAL CARE 1ST 30-74M Time Spent (min) 38
[2023-12-05 11:48] LABS: Albumin Level 2.3 gm/dl (3.4-5.0); Bilirubin Direct 0.2 mg/dl (0-0.2); Bilirubin,Total 0.6 mg/dl (0.2-1.0); Total Protein 5.4 gm/dl (6.0-8.3)
--- NOTE | 2023-12-05 12:52 | Hospitalist Progress Note ---
Date of Service December 05, 2023 Assessment & Plan (1) Fall: (2) Closed T8 spinal fracture: (3) Nasal bone fracture: (4) Supratherapeutic INR: (5) Seizure disorder: (6) Current long-term use of 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 medication with history of deep venous thrombosis (DVT): (7) T2DM (type 2 diabetes mellitus): (8) HLD (hyperlipidemia): (9) Lymphedema: Plan 63yo M with a PMH of DM II, dyslipidemia, venous insufficiency, history of liver failure, BPH, DVT in 2011 on coumadin, venous insufficiency, history of generalized convulsive epilepsy, history of a solitary kidney and other medical problems listed below who presents from home after a fall. Patient was found to have closed T8 spinal fracture for which Ortho spine was consulted on 11/23; recommended mobilization with physical therapy, not an area of spine amenable to bracing. No bending/lifting or twisting, good body mec hanics and posture. He also had nasal bone fracture for which O FMS was consulted; no indication for surgery. Follow-up with oral surgery as outpatient. Patient had a code purple 11/25 AM, was hypoxic/altered/vomiting --> intubated 11/25 and transferred to ICU. CT head with no acute finding. CT abdomen pelvis with findings suggestive of SBO and lower lung consolidation suggestive of pneumonia or aspiration pneumonitis. CT chest suggestive of extensive bilateral lower lobe consolidation, pneumonia versus aspiration pneumonitis. BAL Cx positive of K. pneumoniae; sensitive to ceftriaxone Patient was extubated on 11/28; vasopressors where weaned off. Sedation was weaned off to on 11/29 Patient transferred out of the ICU on 11/30 Video swallow evaluation was done on 12/02; patient was started on a diet On evening of 12/02patient complaining of severe abdominal pain. CT abdomen/pelvis showed hematomas on left psoas muscle and left quadratus lumborum muscle. Discussion was done with on-call surgeon; recommended supportive care; will need IR guided drainage if patient develops abscess in the region. Patient was transfused 2 unit of blood; bolus of IV fluids given On the morning of 12/03; patient was delirious; tachypneic and not directable. He was on 15 L of oxygen by nonrebreather. Stat chest x-ray showed pulmonary edema. Patient was given 1 dose of IV Lasix. He was transferred back to ICU after discussion with the security sales manager. Altered mental status(delirium OR metabolic encephalopathy) likely secondary to underlying infectious process/pain. On Precedex drip in ICU; being weaned off. On lactulose for possible hepatic encephalopathy Mentation seems to be improved compared to 12/03; following commands. Continue antiseizure medication Retroperitoneal hematoma on 12/02 patient complaining of severe abdominal pain. CT abdomen/pelvis showed hematomas on left psoas muscle and left quadratus lumborum muscle. Discussion was done with on-call surgeon; recommended supportive care; will need IR guided drainage if patient develops abscess in the region. Was given 2 units of blood. Monitor CBC. Transfusion as needed. Hold any anticoagulation Hemoglobin currently stable. Septic shock Acute hypoxic respiratory failure Possible aspiration pneumonia pneumonia Acute on chronic diastolic heart failure BAL Cx positive of K. pneumoniae; sensitive to ceftriaxone Last chest x-ray personally reviewed; pulmonary edema and bilateral basal lobe consolidation Currently on cefepime and doxycycline. Patient had previously received Zosyn and ceftriaxone Airway clearance therapy with hypertonic saline and DuoNebs. Wean off oxygen as tolerated IV Lasix as needed Acute kidney injury Likely secondary to sepsis/cardiorenal syndrome Creatinine up trended from 0.67-1.83 on 12/03; currently creatinine is stable around 1.78. Urine output improving Continue support hemodynamics; continue antibiotics Nephrology on board; recommend supportive care. Small bowel obstructionresolved Earlier during the hospitalization; patient had developed ileus with small bowel obstruction. CT abdomen pelvis from 12/02no suggestion of bowel obstruction/inflammation On lactulose enema Mechanical Fall Closed T8 spinal fracture Lumbar spine CT with oblique fracture through the anterior body of T8 which extends through the inferior endplate and likely involves the T8-T9 disc space. This fracture may be unstable. Mild prevertebral edema/hemorrhage is seen at the T8 level [facility] evaluated on 11/23-mobilization with physical therapy, not an area of spine amenable to bracing. No bending/lifting or twisting, good body mechanics and posture Pain control with Tylenol [id number], ketorolac and Dilaudid. Fall precautions PT OT reordered Nasal bone fractures No acute bleeding Continue ice, pain control Discussed with OFMS 11/24 no indication for surgery for now, follow-up with O FMS as an outpatient. Okay to resume his anticoagulation. 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 : Remote history . Anticoagulation on hold Uncontrolled DM II HbA1c 10.5 in Aug , A1c better this admission Hold home agents Basal/bolus insulin per protocol while in-patient BSG AC HS Seizure disorder Continue home Depakote, Dilantin and topiramate BLE neuropathy Gabapentin dose recently changed to 200mg TID BPH On Flomax and Proscar Bladder scan PRN Chronic lymphedema Chronic Venous insufficiency No open wounds Monitor for volume overload Gout Continue allopurinol Solitary kidney As per records DVT Ppx: SCDs for now Code status: FULL PCP: Cruz Dispo: Patient currently in ICU for septic shock. Vasopressors being weaned off. Sedation being weaned off. Currently on IV antibiotics for pneumonia. Will require close monitoring inpatient Time spent evaluating patient, direct bedside care, chart review, placing orders, interpretation of diagnostic studies, discussion with consultants, patient, and family members, as well as other required patient management activities is 50 minutes Please note the above document was generated using voice recognition software. It may contain grammatical, syntax or spelling errors. Any formal questions or concerns about the content, text or information contained within the body of this dictation should be directly addressed to the provider for clarification Admission and Anticipated Discharge Date Admission Date: November 23, 2023 Subjective Patient seen and examined at bedside. He is more awake and comfortable today. He is alert oriented to self and place. Denies any pain or discomfort. Continues to be on vasopressors. Precedex being weaned off. Review of Systems Review of Systems: All systems reviewed & are unremarkable except as noted in Subjective Physical Exam Physical Exam: GENERAL: Comfortable, not in distress. Alert oriented x 3. HEENT: No pallor, no icterus. Pupils equal, round and reactive to light. Oral mucosa dry. NECK: No JVD, no neck masses. nasal bridge swelling. HEART: S1 and S2 heard. Regular rate and rhythm. No murmur, no gallop. RESPIRATORY SYSTEM: Decreased breath sound at bases; crackles otherwise ABDOMEN: Abdomen slightly distended. CENTRAL NERVOUS SYSTEM: Grossly moves all extremities. EXTREMITIES: chronic lymphedema, no erythema seen. Results & Data Results & Data Vital Signs (Past 12 Hours) Vital Signs Temp Pulse Pulse Resp BP BP BP 12/05/23 12:23 37.3 C 12/05/23 12:00 84 135/50 L 12/05/23 11:31 77 34 H 12/05/23 10:55 156/55 H 12/05/23 10:00 76 33 H 12/05/23 09:00 77 28 H 12/05/23 08:30 73 29 H 12/05/23 08:30 137/42 L 12/05/23 08:06 12/05/23 08:02 154/52 H 12/05/23 08:01 72 34 H 12/05/23 08:01 114/58 L 12/05/23 08:00 69 12/05/23 08:00 67 12/05/23 06:07 37.9 C H 69 25 H 111/60 12/05/23 05:02 70 28 H 120/55 L 12/05/23 04:00 37.7 C H 69 27 H 119/62 12/05/23 03:20 69 20 12/05/23 03:00 71 28 H 115/54 L 12/05/23 02:30 70 29 H 12/05/23 02:00 38.3 C H 71 29 H 122/66 12/05/23 01:00 72 29 H Pulse Ox O2 Del Method O2 Flow Rate FiO2 12/05/23 12:23 12/05/23 12:00 12/05/23 11:31 88 L 12/05/23 10:55 12/05/23 10:00 96 12/05/23 09:00 96 12/05/23 08:30 97 12/05/23 08:30 12/05/23 08:06 Oxymask 4 12/05/23 08:02 12/05/23 08:01 95 Oxymask 4 12/05/23 08:01 12/05/23 08:00 12/05/23 08:00 12/05/23 06:07 99 BiPAP 40 12/05/23 05:02 97 BiPAP 40 12/05/23 04:00 98 BiPAP 40 12/05/23 03:20 95 40 12/05/23 03:00 95 BiPAP 40 12/05/23 02:30 98 BiPAP 40 12/05/23 02:00 99 BiPAP 40 12/05/23 01:00 98 BiPAP 40
[2023-12-05] MEDS: GABAPENTIN 100 MG CAP PO SCH (15:13)
[2023-12-05 15:51] LABS: Basophils # (auto) 0.11 K/uL (0.00-0.20); Basophils % (auto) 0.5 %; Eosinophils # (auto) 0.63 K/uL (0.00-0.50); Hematocrit (blood only) 29.5 % (42.0-52.0); Hemoglobin 9.9 g/dl (14.0-18.0); Immature Granulocytes # (auto) 1.06 K/uL (0.01-0.20); Lymphocytes # (auto) 2.43 K/uL (1.20-3.40); Lymphocytes % (auto) 11.5 %; Mean Corpuscular Hemoglobin 33.7 pg (25.0-34.0); Mean Corpuscular Hgb Conc 33.6 g/dL (32.0-36.0); Mean Corpuscular Volume 100.3 fL (80.0-100.0); Mean Platelet Volume 9.6 fL (9.4-12.4); Monocytes # (auto) 1.43 K/uL (0.11-0.59); Monocytes % (auto) 6.8 %; Neutrophils # (auto) 15.41 K/uL (1.40-6.50); Neutrophils % (auto) 73.2 %; Nucleated RBC # (auto) 0.07 K/uL (0.00-0.12); Nucleated RBC % (auto) 0.3 %; Platelet Count 170 K/uL (130-400); RDW Coefficient of Variation 16.3 % (11.5-14.5); RDW Standard Deviation 59.9 fL (36.4-46.3); Red Blood Count 2.94 M/uL (4.70-6.10); White Blood Count 21.07 K/ul (4.8-10.8)
[2023-12-05 15:56] LABS: BUN Creatinine Ratio 27.7 (10-20); Calcium 7.2 mg/dl (8.6-10.3); Creatinine Clr Calc Pharmacy 64.1 ml/min; Est GFR (African American) 53.7 ml/min; Est GFR (Non-African American) 46.3 ml/min; Magnesium 2.4 mg/dl (1.7-2.4); Potassium 4.1 mmol/L (3.5-5.1)
[2023-12-06] MEDS: INSULIN ASPART PER UNIT CHARGE SC SCH (00:35)
[2023-12-06 04:37] LABS: Hemoglobin 9.9 g/dl (14.0-18.0); Mean Corpuscular Hemoglobin 33.7 pg (25.0-34.0); Mean Corpuscular Hgb Conc 34.1 g/dL (32.0-36.0); Mean Corpuscular Volume 98.6 fL (80.0-100.0); Mean Platelet Volume 9.3 fL (9.4-12.4); Nucleated RBC # (auto) 0.03 K/uL (0.00-0.12); Nucleated RBC % (auto) 0.2 %; Platelet Count 167 K/uL (130-400); RDW Coefficient of Variation 15.9 % (11.5-14.5); RDW Standard Deviation 57.4 fL (36.4-46.3); Red Blood Count 2.94 M/uL (4.70-6.10); White Blood Count 19.84 K/ul (4.8-10.8)
[2023-12-06 04:43] LABS: Prothrombin Time 10.9 Seconds (9.0-12.0)
[2023-12-06 04:54] LABS: BUN Creatinine Ratio 34.5 (10-20); Creatinine Clr Calc Pharmacy 87.9 ml/min; Est GFR (African American) 78.6 ml/min; Est GFR (Non-African American) 67.8 ml/min; Magnesium 2.3 mg/dl (1.7-2.4); Phosphorus 3.3 mg/dl (2.5-4.9); Potassium 3.9 mmol/L (3.5-5.1)
[2023-12-06 05:06] LABS: Basophils # (auto) 0.08 K/uL (0.00-0.20); Basophils % (auto) 0.4 %; Eosinophils # (auto) 0.73 K/uL (0.00-0.50); Eosinophils % (auto) 3.7 %; Immature Granulocytes # (auto) 1.07 K/uL (0.01-0.20); Immature Granulocytes % (auto) 5.4 %; Lymphocytes # (auto) 2.81 K/uL (1.20-3.40); Lymphocytes % (auto) 14.2 %; Monocytes # (auto) 1.28 K/uL (0.11-0.59); Monocytes % (auto) 6.5 %; Neutrophils # (auto) 13.87 K/uL (1.40-6.50); Neutrophils % (auto) 69.8 %
[2023-12-06 10:10] LABS: Albumin Level 2.3 gm/dl (3.4-5.0); Bilirubin Direct 0.2 mg/dl (0-0.2); Bilirubin,Total 0.6 mg/dl (0.2-1.0); Total Protein 5.3 gm/dl (6.0-8.3)
[2023-12-06] MEDS: HYDROmorphone INJ 0.5 MG/0.5 ML SYR IV ONE (11:12)
[2023-12-06] MEDS: ACETAMINOPHEN 325 MG TAB PO ONE (11:13)
--- NOTE | 2023-12-06 11:13 | Nephrology Progress Note ---
Date of Service December 06, 2023 Assessment & Plan Admission and Anticipated Discharge Date Admission Date: November 23, 2023 Subjective Assessment & Plan (1) KEYANNA (acute kidney injury): KEYANNA secondary to severe Hemodynamic Insult ( ATN) in a patient with single kidney. In fact I am happily surprised that his kidneys are doing as good as now despite the severe issue with bleeding, Low BP, Septic Shock, resp failure in the last few days. Creat today is better and is making urine. Also BP and resp status better. Continue Supportive care with stable good BP and o2 status. No major issue with electrolytes or acidosis. does have some fluid overload and is about 9-10 liters +ve. Can give lasix once BP is more permissive. Will follow peripherally. (2) Septic shock: (3) Acute hypoxic respiratory failure: Reviewed Critical care note. Seems to be heading in good direction S-----No new issues. Somewhat better Vital signs. Physical Exam Physical Exam: General: Resting in bed, Hig flow o2 mask in place, patient in no acute distress Cardiac: +Tachycardia, regular rhythm, no murmurs appreciated Respiratory: Diminished lung sounds in bilateral lung bases Abdominal: Soft, mildly distended. Extremities: Moderate lower extremity pitting edema bilaterally Neuro: Oriented to self but not to place or time Results & Data Vital Signs (Past 12 Hours) Vital Signs Temp Pulse Resp BP Pulse Ox FiO2 12/06/23 04:00 118/61 12/06/23 03:41 55 L 27 H 100 40 12/06/23 02:31 104/64 12/06/23 02:30 36.8 C 56 L 24 12/06/23 02:00 36.8 C 57 L 25 H 99 12/06/23 01:30 115/61 12/06/23 01:30 36.8 C 55 L 25 H 100 12/06/23 01:01 110/65 12/06/23 01:01 36.8 C 57 L 26 H 99 12/06/23 01:00 36.8 C 56 L 27 H 99 12/06/23 00:31 36.8 C 57 L 28 H 99 12/06/23 00:31 114/67 12/06/23 00:30 36.8 C 55 L 27 H 99 12/06/23 00:00 133/69 12/06/23 00:00 36.8 C 57 L 26 H 100 12/06/23 00:00 58 L 133/69 12/05/23 23:30 36.8 C 57 L 27 H 100
[2023-12-06] MEDS: CEFEPIME 2,000 MG in SYRINGE 0 ML IV SCH (11:14)
[2023-12-06] MEDS ORDERED: Nursing to Pharmacy Communication SCH (11:45)
--- NOTE | 2023-12-06 12:34 | Electrocardiogram Report ---
Test Reason : Blood Pressure : / mmHG Vent. Rate : 130 BPM Atrial Rate : 131 BPM P-R Int : 096 ms QRS Dur : 080 ms QT Int : 400 ms P-R-T Axes : 000 052 014 degrees QTc Int : 588 ms Poor data quality, interpretation may be adversely affected Sinus tachycardia with short KS Low voltage QRS Nonspecific ST and T wave abnormality Abnormal ECG When compared with ECG of 27-NOV-2023 06:59, T wave inversion now evident in Inferior leads T wave inversion now evident in Lateral leads Confirmed by Robert Saeed ([id number]) on 12/06/2023 12:33:52 PM Referred By: REFERRED SELF Confirmed By:Robert Saeed
[2023-12-06] MEDS: HYDROmorphone INJ 0.5 MG/0.5 ML SYR IV STA (15:22)
--- NOTE | 2023-12-06 15:31 | Pharmacy Report ---
Pharmacy Glycemic Short Note 2 - Date of Service December 06, 2023 - Glycemic Short BSG Results (Last 24 hours): 12/05/23 12/05/23 12/05/23 15:15 16:35 19:46 Glucose 186 H POC Glucose POC Glucose (other) 161 H 185 H 12/06/23 12/06/23 12/06/23 00:28 04:14 04:22 Glucose 182 H POC Glucose POC Glucose (other) 184 H 167 H 12/06/23 12/06/23 07:28 11:28 Glucose POC Glucose 186 H POC Glucose (other) 168 H OUTPATIENT ANTIDIABETIC REGIMEN: * Glipizide 10 mg PO BIDM * Tradjenta 5 mg PO daily * HbA1c: 7.5% (11/24/23) ASSESSMENT: 12/05: * Patient currently on norepinephrine- weaning off, precedex * Tolerating PO again, BSGs initially elevated upon admission to ICU but have improved with slight increase in basal 12/03: * Diet restarted yesterday, blood sugars ranging 112-171 mg/dL * Patient transferred to ICU this morning due to respiratory distress and concern for further decompensation * Now on pressors (norepinephrine and vasopressin) and Precedex for sedation * Will follow closely for insulin adjustments given change in clinical condition 12/01: * Patient received total of 24 units of insulin yesterday, of which 15 units were basal * Fasting BSG 122 mg/dL - will continue with scale for basal, still NPO Background: * 63 yo M admitted on 11/23/23 secondary to a fall. Patient aspirated on the morning of 11/26/23 and required intubation and transfer to the ICU. Pharmacy has been consulted to assist with inpatient glycemic management. Patient is a Type 2 diabetic as an outpatient. Please refer to outpatient regimen and most recent HbA1c above. * Eliseo was receiving 40 units of basal per day since admission with Novolog based on weight/stress of ~2 with adequate glycemic control. * Stressors have now changed significantly as patient is intubated and sedated. Ordered norepinephrine, vasopressin, fentanyl, propofol and heparin drips. Zosyn added for aspiration coverage. nt potassium was 3.7 mg/dL and is being replaced IV. * No insulin received yet today. Will d/c basal + bolus and start patient on insulin drip based on high stress and most recent BSG of 266 mg/dL. This will provide a 4 unit bolus followed by drip at a rate of 3.8 units/hr. Goal range is 110-180 mg/dL. Most rece * Will not transition patient off drip until clinical status improved and patient ready to be extubated. Will consider adding basal insulin tomorrow if patient improving. PLAN FOR INPATIENT GLYCEMIC CONTROL: * Hold outpatient oral diabetes medications * Basal insulin * Lantus 10 units BID * Bolus insulin * NovoLog per scale ACHS or Q6hrs while NPO * Goal Range: Low 110 mg/dL - High 140 mg/dL * Correction Factor: 20 mg/dL/unit * Nutritional / Prandial insulin per carb ratio of 1 unit per 7 grams CHO consumed
[2023-12-06] MEDS ORDERED: HYDROmorphone INJ 0.5 MG/0.5 ML SYR IV PRN (15:34)
--- NOTE | 2023-12-06 15:55 | Hospitalist Progress Note ---
Date of Service December 06, 2023 Assessment & Plan (1) Fall: (2) Closed T8 spinal fracture: (3) Nasal bone fracture: (4) Supratherapeutic INR: (5) Seizure disorder: (6) Current long-term use of 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 medication with history of deep venous thrombosis (DVT): (7) T2DM (type 2 diabetes mellitus): (8) HLD (hyperlipidemia): (9) Lymphedema: Plan 63yo M with a PMH of DM II, dyslipidemia, venous insufficiency, history of liver failure, BPH, DVT in 2011 on coumadin, venous insufficiency, history of generalized convulsive epilepsy, history of a solitary kidney and other medical problems listed below who presents from home after a fall. Patient was found to have closed T8 spinal fracture for which Ortho spine was consulted on 11/23; recommended mobilization with physical therapy, not an area of spine amenable to bracing. No bending/lifting or twisting, good body mec hanics and posture. He also had nasal bone fracture for which O FMS was consulted; no indication for surgery. Follow-up with OM[facility] as outpatient. Patient had a code purple 11/25 AM, was hypoxic/altered/vomiting --> intubated 11/25 and transferred to ICU. CT head with no acute finding. CT abdomen pelvis with findings suggestive of SBO and lower lung consolidation suggestive of pneumonia or aspiration pneumonitis. CT chest suggestive of extensive bilateral lower lobe consolidation, pneumonia versus aspiration pneumonitis. BAL Cx positive of K. pneumoniae; sensitive to ceftriaxone Patient was extubated on 11/28; vasopressors were weaned off. Sedation was weaned off to on 11/29 Patient transferred out of the ICU on 11/30 Video swallow evaluation was done on 12/02; patient was started on a diet On evening of 12/02patient complaining of severe abdominal pain. CT abdomen/pelvis showed hematomas on left psoas muscle and left quadratus lumborum muscle. Per prior attending - Discussion was done with on-call surgeon; recommended supportive care; will need IR guided drainage if patient develops abscess in the region. Patient was transfused 2 unit of blood; bolus of IV fluids given On the morning of 12/03; patient was delirious; tachypneic and not directable. He was on 15 L of oxygen by nonrebreather. Stat chest x-ray showed pulmonary edema. Patient was given 1 dose of IV Lasix. He was transferred back to ICU. Altered mental status(delirium OR metabolic encephalopathy) likely secondary to underlying infectious process/pain. Precedex drip weaned off. On lactulose for possible hepatic encephalopathy. FMS in situ Mentation seems to be improving per pt's sister at bedside. Continue antiseizure medication Retroperitoneal hematoma on 12/02 patient complaining of severe abdominal pain. CT abdomen/pelvis showed hematomas on left psoas muscle and left quadratus lumborum muscle. Per prior attending - Discussion was done with on-call surgeon; recommended supportive care; will need IR guided drainage if patient develops abscess in the region. Was given 2 units of blood. Monitor CBC. Transfusion as needed. Hold any anticoagulation Hemoglobin currently stable. Septic shock Acute hypoxic respiratory failure Possible aspiration pneumonia Acute on chronic diastolic heart failure BAL Cx positive of K. pneumoniae; sensitive to ceftriaxone 12/03 chest x-ray - pulmonary edema and bilateral basal lobe consolidation Currently on cefepime, metron and doxycycline. Patient had previously received Zosyn and ceftriaxone IV Lasix as needed if permissible w/ BP Acute kidney injury Likely secondary to sepsis/cardiorenal syndrome Creatinine up trended from 0.67-1.83 on 12/03; currently creatinine has improved. Urine output improving Continue support hemodynamics; continue antibiotics Nephrology on board; recommends supportive care. Small bowel obstructionresolved Earlier during the hospitalization; patient had developed ileus with small bowel obstruction. CT abdomen pelvis from 12/02no suggestion of bowel obstruction/inflammation c/w lactulose. Mechanical Fall Closed T8 spinal fracture Lumbar spine CT with oblique fracture through the anterior body of T8 which extends through the inferior endplate and likely involves the T8-T9 disc space. This fracture may be unstable. Mild prevertebral edema/hemorrhage is seen at the T8 level [facility] evaluated on 11/23-mobilization with physical therapy, not an area of spine amenable to bracing. No bending/lifting or twisting, good body mechanics and posture Pain control with Tylenol [id number], ketorolac and Dilaudid. Fall precautions PT OT reordered Nasal bone fractures No acute bleeding Continue ice, pain control Discussed with OFMS 11/24 no indication for surgery for now, follow-up with O FMS as an outpatient. Okay to resume his anticoagulation. 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 : Remote history . Anticoagulation on hold due to retroperitoneal hematoma. Uncontrolled DM II HbA1c 10.5 in Aug , A1c better this admission Hold home agents Basal/bolus insulin per protocol while in-patient BSG AC HS Seizure disorder Continue home Depakote, Dilantin and topiramate BLE neuropathy Gabapentin dose recently changed to 200mg TID BPH On Flomax and Proscar Bladder scan PRN Chronic lymphedema Chronic Venous insufficiency No open wounds Monitor for volume overload Gout Continue allopurinol Solitary kidney As per records DVT Ppx: SCDs for now Code status: FULL PCP: Gomeztercarina Dispo: Patient currently in ICU for septic shock. Vasopressors being weaned off. Currently on IV antibiotics for pneumonia. Will require close monitoring inpatient Please note the above document was generated using voice recognition software. It may contain grammatical, syntax or spelling errors. Any formal questions or concerns about the content, text or information contained within the body of t his dictation should be directly addressed to the provider for clarification Admission and Anticipated Discharge Date Admission Date: November 23, 2023 Subjective Patient seen and examined at bedside. He is awake, oriented, complaining of left eye pain/no erythema or warmth or tenderness noted. He is alert oriented to self and place. Has fecal management system in situ, liquid bowels noted. Edwards catheter in situ noted. Continues to be on vasopressors. Physical Exam Physical Exam: GENERAL: Alert oriented x 3. on RA, NAD, appears ill/sick/frail. HEENT: No pallor, no icterus. Pupils equal, round and reactive to light. Oral mucosa moist. NECK: No JVD, no neck masses. nasal bridge swelling. HEART: S1 and S2 heard. Regular rate and rhythm. No murmur, no gallop. RESPIRATORY SYSTEM: Decreased breath sound at bases; crackles otherwise ABDOMEN: Abdomen slightly distended. non tender. CENTRAL NERVOUS SYSTEM: Grossly moves all extremities. EXTREMITIES: chronic lymphedema, no erythema seen. 1+ pitting edema present. no erythema/warmth or tender noted. Results & Data Results & Data Vital Signs (Past 12 Hours) Vital Signs Temp Pulse Resp BP Pulse Ox O2 Del Method O2 Flow Rate 12/06/23 13:00 35.7 C L 62 25 H 100 Nasal Cannula 2 12/06/23 12:31 108/70 12/06/23 12:30 35.9 C L 63 25 H 93 12/06/23 12:00 36.6 C 64 27 H 92 Nasal Cannula 2 12/06/23 11:31 109/60 12/06/23 11:30 36.6 C 62 22 90 12/06/23 11:01 36.5 C 57 L 30 H 90 Nasal Cannula 2 12/06/23 10:46 100/56 L 12/06/23 10:46 36.4 C L 55 L 24 89 L 12/06/23 10:31 36.4 C L 55 L 22 89 L 12/06/23 10:31 98/56 L 12/06/23 10:30 36.4 C L 55 L 23 12/06/23 10:16 118/69 12/06/23 10:15 36.3 C L 54 L 23 89 L 12/06/23 10:01 112/66 12/06/23 10:00 36.3 C L 56 L 27 H 90 12/06/23 09:46 108/71 12/06/23 09:45 36.3 C L 58 L 20 94 12/06/23 09:31 36.2 C L 55 L 28 H 91 12/06/23 09:31 119/64 12/06/23 09:30 36.2 C L 53 L 29 H 90 12/06/23 09:15 109/62 12/06/23 09:15 36.2 C L 55 L 29 H 88 L 12/06/23 09:00 36.2 C L 57 L 26 H 88 L 12/06/23 08:46 109/61 12/06/23 08:45 36.2 C L 56 L 26 H 90 12/06/23 08:30 36.2 C L 55 L 27 H 89 L 12/06/23 08:16 36.1 C L 55 L 21 89 L 12/06/23 08:16 106/55 L 12/06/23 08:15 36.1 C L 56 L 23 89 L 12/06/23 08:01 36.1 C L 56 L 26 H 89 L 12/06/23 08:01 104/65 12/06/23 08:00 Nasal Cannula 2 12/06/23 08:00 55 L 12/06/23 08:00 36.1 C L 57 L 27 H 90 12/06/23 07:45 36.2 C L 69 22 91 12/06/23 07:30 36.2 C L 57 L 15 91 12/06/23 07:19 130/70 12/06/23 07:17 36.2 C L 53 L 26 H 91 12/06/23 07:15 36.2 C L 53 L 25 H 92 12/06/23 07:00 36.2 C L 54 L 24 92 12/06/23 06:46 35.7 C L 56 L 25 H 97 12/06/23 06:39 35.6 C L 55 L 15 100 12/06/23 04:00 118/61
--- NOTE | 2023-12-06 16:31 | CT Scan Report ---
CT SCAN OF THE ABDOMEN AND PELVIS WITHOUT IV CONTRAST CLINICAL HISTORY: Psoas hematoma. COMPARISON STUDY: Abdominal CT dated 12/03/2023. TECHNIQUE: CT scan of the abdomen and pelvis is performed from the lung bases to the proximal femora. Images are reviewed in the axial, sagittal, and coronal planes. IV contrast was not administered for this examination. A dose lowering technique was utilized adhering to the principles of ALARA. The ex amination is degraded by motion artifact, as well as by streak artifact from the arms which could not be elevated above the abdomen. CT DOSE: 2108.66 mGy.cm FINDINGS: Lung bases: The tip of a central venous catheter terminates at the cavoatrial junction. The heart is normal in size and without pericardial effusion. The coronary arteries are densely calcified. There a re small pleural effusions with dependent consolidation. Liver: The unenhanced liver is normal in size, contour, and attenuation. There is no intrahepatic ileana iary ductal dilatation. Gallbladder: Distended but otherwise normal in appearance. Spleen: Normal in size and attenuation. Pancreas: The unenhanced pancreas is moderately atrophic and grossly unremarkable. Adrenal glands: Unremarkable. Kidneys: The right kidney is surgically absent. The unenhanced left kidney is normal in size and with out hydronephrosis. There are no renal calculi identified. A 1.4 cm exophytic cyst is again noted. Abdominal vasculature: The abdominal aorta is normal in course and caliber noting moderate atheroscle rotic calcification. Bowel: There is no bowel obstruction. Residual enteric contrast is noted in the colon. The appendix i s well-visualized and normal. There is likely a rectal catheter in place. Peritoneum/retroperitoneum: There is trace abdominal pelvic ascites. No intraperitoneal free air is s een. There is a small fat-containing umbilical hernia. There is also a large fat-containing supraumbi lical ventral hernia. Intramuscular hemorrhage within the left psoas and left-sided retroperitoneal h emorrhage is similar in appearance to the 12/03/2023 examination. The retroperitoneal component of the hemorrhage measures approximately 10 x 10 x 5.5 cm as seen on axial image #213 with surrounding infi ltration. The intramuscular hemorrhage within the psoas extends approximately 18 cm in craniocaudal l ength. Lymphadenopathy: None. Pelvic viscera: The prostate gland is diminutive and heterogeneous. The bladder is decompressed and a Edwards catheter and cannot be evaluated. There are foci of intraluminal gas. There are bilateral fat- containing inguinal hernias, left larger than right. Skeletal structures: The skeletal structures are heterogeneously osteopenic. A subacute oblique T8 ve rtebral body fracture is unchanged. There are numerous additional minimal chronic compression deformi ties in the imaged lower lumbar spine. Moderate lumbosacral spondylosis is observed. No lytic or meagan tic lesions are seen. There are chronic right-sided rib fractures. Soft tissues: There is body wall edema. IMPRESSION: 1. Intramuscular hemorrhage within the left psoas and left retrotracheal hemorrhage is similar in siz e to the 12/03/2023 examination. 2. Small pleural effusions with dependent airspace consolidation. This is also similar to previous. C orrelate clinically for evidence of pneumonia. 3. Anasarca. 4. Status post right nephrectomy. 5. Advanced coronary artery atherosclerosis. 6. A subacute vertebral body fracture of T8 is again noted. 7. Additional findings as above. ACT 112: Negative or not required by law. Electronically signed by: Alfredo Cade M.D. 12/06/2023 4:30 PM
[2023-12-06] MEDS: LORazepam 1 MG in SYRINGE 0.5 ML IV STA (17:59)
--- NOTE | 2023-12-06 18:13 | Critical Care Progress Note ---
Date of Service December 06, 2023 Assessment & Plan (1) Fall: (2) Closed T8 spinal fracture: (3) Nasal bone fracture: (4) Supratherapeutic INR: (5) Seizure disorder: (6) Current long-term use of 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 medication with history of deep venous thrombosis (DVT): (7) T2DM (type 2 diabetes mellitus): (8) HLD (hyperlipidemia): (9) Lymphedema: (10) Hepatic encephalopathy: (11) Acute hypoxic respiratory failure: (12) Septic shock: Plan Septic shock has resolved and he has been weaned off pressors. Respiratory status improving with diuresis. Creatinine substantially improved. Appreciate nephrology input. Continue IV antibiotics for 2 weeks total given septic shock presentation. Recommend outpatient follow-up of pelvic hematoma with CT abdomen and pelvis in 3 to 4 weeks. Consider restarting VTE prophy in the next 2 or 3 days as long as hemoglobin remained stable given history of VTE. Continue home antiseizure medications. Patient with significant anxiety and frequent reorientation and reassurance required. Patient complaining of abdominal pain likely related to gas. Maalox and simethicone initiated. Patient's sister is updated extensively at bedside. Patient stable for downgrade to PCU status. Transfer orders placed. Thank you for allowing me to participate in the care of the patient. ICU services will sign off. Admission and Anticipated Discharge Date Admission Date: November 23, 2023 Subjective Patient seen and examined. He has very high anxiety level and complains of abdominal pain. CT abdomen pelvis without contrast shows stable hematoma. No acute findings. Review of Systems Review of Systems: All systems reviewed & are unremarkable except as noted in HPI & below Physical Exam Physical Exam: Constitutional: Patient appears to be of their stated age. Patient is in no apparent distress. Patient is well-developed. Eyes: Pupils are equal round and reactive to light. Conjunctivae are normal. Anicteric sclera. Ears nose, mouth and throat: Mallampati class 2. Normal posterior oropharynx. Uvula is midline. Neck: Trachea is midline. Visual inspection is normal. Respiratory: Clear to auscultation bilaterally. No use of accessory muscles. No significant clubbing noted. Cardiovascular: Regular rate and rhythm. No murmurs. No edema. Gastrointestinal: Normal bowel sounds, soft, nontender and nondistended. No hepatosplenomegaly noted. Musculoskeletal: No cyanosis. Patient is able to move all extremities. Strength is 5 out of 5 in the upper and lower extremities. Skin: No rashes, warm dry and intact. Neurologic: No obvious focal neurological deficits seen. Psychiatric: Alert and oriented x3 with a severely anxious affect. Results & Data Results & Data Vital Signs (Past 12 Hours) Vital Signs Temp Pulse Resp BP Pulse Ox O2 Del Method O2 Flow Rate 12/06/23 14:31 36.5 C 57 L 23 96 Nasal Cannula 2 12/06/23 14:31 104/59 L 12/06/23 14:00 36.5 C 58 L 20 96 Nasal Cannula 2 12/06/23 13:46 36.5 C 58 L 28 H 97 12/06/23 13:33 36.3 C L 61 30 H 95 12/06/23 13:33 108/60 12/06/23 13:30 35.9 C L 60 21 96 12/06/23 13:17 36.2 C L 61 21 98 12/06/23 13:00 35.7 C L 62 25 H 100 Nasal Cannula 2 12/06/23 12:31 108/70 12/06/23 12:30 35.9 C L 63 25 H 93 12/06/23 12:00 36.6 C 64 27 H 92 Nasal Cannula 2 12/06/23 11:31 109/60 12/06/23 11:30 36.6 C 62 22 90 12/06/23 11:01 36.5 C 57 L 30 H 90 Nasal Cannula 2 12/06/23 10:46 100/56 L 12/06/23 10:46 36.4 C L 55 L 24 89 L 12/06/23 10:31 36.4 C L 55 L 22 89 L 12/06/23 10:31 98/56 L 12/06/23 10:30 36.4 C L 55 L 23 12/06/23 10:16 118/69 12/06/23 10:15 36.3 C L 54 L 23 89 L 12/06/23 10:01 112/66 12/06/23 10:00 36.3 C L 56 L 27 H 90 12/06/23 09:46 108/71 12/06/23 09:45 36.3 C L 58 L 20 94 12/06/23 09:31 36.2 C L 55 L 28 H 91 12/06/23 09:31 119/64 12/06/23 09:30 36.2 C L 53 L 29 H 90 12/06/23 09:15 109/62 12/06/23 09:15 36.2 C L 55 L 29 H 88 L 12/06/23 09:00 36.2 C L 57 L 26 H 88 L 12/06/23 08:46 109/61 12/06/23 08:45 36.2 C L 56 L 26 H 90 12/06/23 08:30 36.2 C L 55 L 27 H 89 L 12/06/23 08:16 36.1 C L 55 L 21 89 L 12/06/23 08:16 106/55 L 12/06/23 08:15 36.1 C L 56 L 23 89 L 12/06/23 08:01 36.1 C L 56 L 26 H 89 L 12/06/23 08:01 104/65 12/06/23 08:00 Nasal Cannula 2 12/06/23 08:00 55 L 12/06/23 08:00 36.1 C L 57 L 27 H 90 12/06/23 07:45 36.2 C L 69 22 91 12/06/23 07:30 36.2 C L 57 L 15 91 12/06/23 07:19 130/70 12/06/23 07:17 36.2 C L 53 L 26 H 91 12/06/23 07:15 36.2 C L 53 L 25 H 92 12/06/23 07:00 36.2 C L 54 L 24 92 12/06/23 06:46 35.7 C L 56 L 25 H 97 12/06/23 06:39 35.6 C L 55 L 15 100 Coding Level of Care Code 53183 SUB INP/OBS CARE 3/50MIN Diagnoses Fall W19.XXXA Closed T8 spinal fracture S22.069A Nasal bone fracture S02.2XXA Supratherapeutic INR R79.1 Seizure disorder G40.909 Current long-term use of 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 medication with history of deep venous thrombosis (DVT) Z86.718; Z79.01 T2DM (type 2 diabetes mellitus) E11.9 HLD (hyperlipidemia) E78.5 Lymphedema I89.0 Hepatic encephalopathy K76.82 Acute hypoxic respiratory failure J96.01 Septic shock A41.9; R65.21
[2023-12-06] MEDS: ALUMINUM/MAGNESIUM/SIMETH (MAALOX MAX) 30 ML UDC PO PRN (19:18)
[2023-12-06] MEDS: LANTUS PER UNIT CHARGE SQ SCH (20:58)
[2023-12-06] MEDS: ACETAMINOPHEN 1,000 MG/100 ML VIAL IV STA (22:53)
[2023-12-07] MEDS: SIMETHICONE 80 MG CHEW PO ONE (03:24)
[2023-12-07 06:31] LABS: Basophils # (auto) 0.08 K/uL (0.00-0.20); Basophils % (auto) 0.4 %; Eosinophils % (auto) 1.7 %; Hematocrit (blood only) 28.9 % (42.0-52.0); Hemoglobin 9.8 g/dl (14.0-18.0); Immature Granulocytes # (auto) 0.61 K/uL (0.01-0.20); Immature Granulocytes % (auto) 3.4 %; Lymphocytes # (auto) 1.96 K/uL (1.20-3.40); Lymphocytes % (auto) 10.8 %; Mean Corpuscular Hemoglobin 33.2 pg (25.0-34.0); Mean Corpuscular Hgb Conc 33.9 g/dL (32.0-36.0); Mean Platelet Volume 9.7 fL (9.4-12.4); Monocytes # (auto) 0.91 K/uL (0.11-0.59); Neutrophils # (auto) 14.23 K/uL (1.40-6.50); Neutrophils % (auto) 78.7 %; Nucleated RBC # (auto) 0.04 K/uL (0.00-0.12); Nucleated RBC % (auto) 0.2 %; Platelet Count 142 K/uL (130-400); RDW Coefficient of Variation 15.5 % (11.5-14.5); RDW Standard Deviation 55.5 fL (36.4-46.3); Red Blood Count 2.95 M/uL (4.70-6.10); White Blood Count 18.09 K/ul (4.8-10.8)
[2023-12-07 06:51] LABS: INR 1.1 (0.9-1.1); Prothrombin Time 11.4 Seconds (9.0-12.0)
[2023-12-07 06:54] LABS: Calcium 6.9 mg/dl (8.6-10.3); Est GFR (African American) 102.1 ml/min; Est GFR (Non-African American) 88.1 ml/min; Magnesium 2.2 mg/dl (1.7-2.4); Phosphorus 2.4 mg/dl (2.5-4.9); Potassium 3.7 mmol/L (3.5-5.1)
[2023-12-07] MEDS: FUROSEMIDE 40 MG/4 ML VIAL IV SCH (08:15)
[2023-12-07] MEDS: POTASSIUM CHLORIDE CRTAB 20 MEQ TABCR PO STA (08:15)
[2023-12-07] MEDS: POT PHOSPHATE MONOBASIC W/ SOD TAB PO SCH (08:40)
[2023-12-07] MEDS: CALCIUM CARBONATE 500 MG CHEWABLE TAB PO ONE (12:52)
[2023-12-07] MEDS: SIMETHICONE 80 MG CHEW PO PRN (12:52)
[2023-12-07] MEDS: PANTOprazole 40 MG TAB PO SCH (13:47)
--- NOTE | 2023-12-07 16:10 | Hospitalist Progress Note ---
Date of Service December 07, 2023 Assessment & Plan (1) Fall: (2) Closed T8 spinal fracture: (3) Nasal bone fracture: (4) Supratherapeutic INR: (5) Seizure disorder: (6) Current long-term use of 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 medication with history of deep venous thrombosis (DVT): (7) T2DM (type 2 diabetes mellitus): (8) HLD (hyperlipidemia): (9) Lymphedema: Plan 63yo M with a PMH of DM II, dyslipidemia, venous insufficiency, history of liver failure, BPH, DVT in 2011 on coumadin, venous insufficiency, history of generalized convulsive epilepsy, history of a solitary kidney and other medical problems listed below who presents from home after a fall. Patient was found to have closed T8 spinal fracture for which Ortho spine was consulted on 11/23; recommended mobilization with physical therapy, not an area of spine amenable to bracing. No bending/lifting or twisting, good body mec hanics and posture. He also had nasal bone fracture for which [facility] was consulted; no indication for surgery. Follow-up with [facility] as outpatient. Patient had a code purple 11/25 AM, was hypoxic/altered/vomiting --> intubated 11/25 and transferred to ICU. CT head with no acute finding. CT abdomen pelvis with findings suggestive of SBO and lower lung consolidation suggestive of pneumonia or aspiration pneumonitis. CT chest suggestive of extensive bilateral lower lobe consolidation, pneumonia versus aspiration pneumonitis. BAL Cx positive of K. pneumoniae; sensitive to ceftriaxone Patient was extubated on 11/28; vasopressors were weaned off. Sedation was weaned off to on 11/29 Patient transferred out of the ICU on 11/30 Video swallow evaluation was done on 12/02; patient was started on a diet On evening of 12/02patient complaining of severe abdominal pain. CT abdomen/pelvis showed hematomas on left psoas muscle and left quadratus lumborum muscle. Per prior attending - Discussion was done with on-call surgeon; recommended supportive care; will need IR guided drainage if patient develops abscess in the region. Patient was transfused 2 unit of blood; bolus of IV fluids given On the morning of 12/03; patient was delirious; tachypneic and not directable. He was on 15 L of oxygen by nonrebreather. Stat chest x-ray showed pulmonary edema. Patient was given 1 dose of IV Lasix. He was transferred back to ICU. Weaned off of pressors and precedex and DG'd back to PCU on 12/05. Altered mental status(delirium OR metabolic encephalopathy) likely secondary to underlying infectious process/pain. On lactulose for possible hepatic encephalopathy. FMS in situ, having good output. Mentation seems to be improving. Continue antiseizure medication Retroperitoneal hematoma on 12/02 patient complaining of severe abdominal pain. 12/02 CT abdomen/pelvis showed hematomas on left psoas muscle and left quadratus lumborum muscle. 12/05 CTAP: stable hematoma. Anasarca. Per prior attending - Discussion was done with on-call surgeon; recommended supportive care; will need IR guided drainage if patient develops abscess in the region. Was given 2 units of blood. Monitor CBC. Transfusion as needed. Hold any anticoagulation. Trial DVT Px in next 1-2 days if Hb stays stable. Hemoglobin currently stable. OP f/u CTAP in - for pelvic hematoma. Septic shock Acute hypoxic respiratory failure Possible aspiration pneumonia Acute on chronic diastolic heart failure BAL Cx positive of K. pneumoniae; sensitive to ceftriaxone 12/03 chest x-ray - pulmonary edema and bilateral basal lobe consolidation Currently on cefepime, metron and doxycycline. Patient had previously received Zosyn and ceftriaxone IV Lasix as needed if permissible w/ BP w/ prn kcl supplementation. Plan for current atb for total of 2 weeks per pulm recaddi. Possible APD: pt complains of abd pain, CTAP has been normal. SBO has been resolved. Pt moving bowels and eating ok. Will trail PPI and simethicone. will follow. Acute kidney injury Likely secondary to sepsis/cardiorenal syndrome Creatinine up trended from 0.67-1.83 on 12/03; currently creatinine has improved. Urine output improving Continue support hemodynamics; continue antibiotics Nephrology on board; recommends supportive care. Small bowel obstructionresolved Earlier during the hospitalization; patient had developed ileus with small bowel obstruction. CT abdomen pelvis from 12/02no suggestion of bowel obstruction/inflammation c/w lactulose. Mechanical Fall Closed T8 spinal fracture Lumbar spine CT with oblique fracture through the anterior body of T8 which extends through the inferior endplate and likely involves the T8-T9 disc space. This fracture may be unstable. Mild prevertebral edema/hemorrhage is seen at the T8 level [facility] evaluated on 11/23-mobilization with physical therapy, not an area of spine amenable to bracing. No bending/lifting or twisting, good body mechanics and posture Pain control with Tylenol [id number], ketorolac and Dilaudid. Fall precautions PT OT reordered Nasal bone fractures No acute bleeding Continue ice, pain control Discussed with OFMS 11/24 no indication for surgery for now, follow-up with O FMS as an outpatient. Okay to resume his anticoagulation. 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 : Remote history . Anticoagulation on hold due to retroperitoneal hematoma. Uncontrolled DM II HbA1c 10.5 in Aug , A1c better this admission Hold home agents Basal/bolus insulin per protocol while in-patient BSG AC HS Seizure disorder Continue home Depakote, Dilantin and topiramate BLE neuropathy Gabapentin dose recently changed to 200mg TID BPH On Flomax and Proscar Bladder scan PRN Chronic lymphedema Chronic Venous insufficiency No open wounds Monitor for volume overload Gout Continue allopurinol Solitary kidney As per records DVT Ppx: SCDs for now Code status: FULL PCP: [place] Dispo: PT/OT when able, plan for initiating DVT Px and then Tx gradually. Please note the above document was generated using voice recognition software. It may contain grammatical, syntax or spelling errors. Any formal questions or concerns about the content, text or information contained within the body of this dictation should be directly addressed to the provider for clarification Admission and Anticipated Discharge Date Admission Date: November 23, 2023 Subjective Patient seen and examined at bedside. He is awake, oriented, reports improvement of left thigh pain, no warmth/erythema/tenderness noted. He is alert oriented. Has fecal management system in situ, liquid bowels noted. Edwards catheter in situ noted. Per RN large BM noted later in the day as well. Complain of abd indigestion/?apd...will put PPI and simethicone, follow clinically. Physical Exam Physical Exam: GENERAL: Alert oriented x 3. on RA, NAD, appears ill/sick/frail. HEENT: No pallor, no icterus. Pupils equal, round and reactive to light. Oral mucosa moist. NECK: No JVD, no neck masses. nasal bridge swelling. HEART: S1 and S2 heard. Regular rate and rhythm. No murmur, no gallop. RESPIRATORY SYSTEM: Decreased breath sound at bases; crackles otherwise ABDOMEN: Abdomen slightly distended. CENTRAL NERVOUS SYSTEM: Grossly moves all extremities. EXTREMITIES: chronic lymphedema, no erythema seen. 1+ pitting edema present. no erythema/warmth or tender noted. Results & Data Results & Data Vital Signs (Past 12 Hours) Vital Signs Temp Pulse Pulse Resp BP BP Pulse Ox 12/07/23 15:53 36.7 C 98 H 19 145/66 H 98 12/07/23 15:13 100 H 12/07/23 11:30 37.3 C 101 H 18 96/65 L 93 12/07/23 07:24 37.2 C 104 H 20 126/69 95 12/07/23 07:20 12/07/23 07:20 101 H O2 Del Method O2 Flow Rate 12/07/23 15:53 Nasal Cannula 3.0 12/07/23 15:13 12/07/23 11:30 Nasal Cannula 2.0 12/07/23 07:24 Oxymask 2 12/07/23 07:20 Oxymask 3 12/07/23 07:20
[2023-12-07] MEDS: ACETAMINOPHEN 500 MG TAB PO PRN (17:07)
[2023-12-07] MEDS: ACETAMINOPHEN W/CODEINE #3 1 TAB PO ONE (21:40)
[2023-12-08 06:47] LABS: Hematocrit (blood only) 29.8 % (42.0-52.0); Hemoglobin 9.7 g/dl (14.0-18.0); Mean Corpuscular Hemoglobin 32.9 pg (25.0-34.0); Mean Corpuscular Hgb Conc 32.6 g/dL (32.0-36.0); Mean Platelet Volume 9.7 fL (9.4-12.4); Nucleated RBC # (auto) 0.03 K/uL (0.00-0.12); Nucleated RBC % (auto) 0.2 %; Platelet Count 161 K/uL (130-400); RDW Coefficient of Variation 15.7 % (11.5-14.5); Red Blood Count 2.95 M/uL (4.70-6.10); White Blood Count 12.95 K/ul (4.8-10.8)
[2023-12-08 06:59] LABS: BUN Creatinine Ratio 27.7 (10-20); Creatinine Clr Calc Pharmacy 120.6 ml/min; Est GFR (Non-African American) 92.3 ml/min; Magnesium 2.2 mg/dl (1.7-2.4); Phosphorus 2.4 mg/dl (2.5-4.9)
[2023-12-08 07:07] LABS: INR 1.1 (0.9-1.1); Prothrombin Time 12.2 Seconds (9.0-12.0)
[2023-12-08 07:12] LABS: Basophils # (auto) 0.07 K/uL (0.00-0.20); Basophils % (auto) 0.5 %; Eosinophils # (auto) 0.23 K/uL (0.00-0.50); Eosinophils % (auto) 1.8 %; Immature Granulocytes # (auto) 0.72 K/uL (0.01-0.20); Immature Granulocytes % (auto) 5.6 %; Lymphocytes # (auto) 2.65 K/uL (1.20-3.40); Lymphocytes % (auto) 20.5 %; Monocytes # (auto) 0.94 K/uL (0.11-0.59); Monocytes % (auto) 7.3 %; Neutrophils # (auto) 8.34 K/uL (1.40-6.50); Neutrophils % (auto) 64.3 %; Polychromasia 1+
[2023-12-08] MEDS: POTASSIUM CHLORIDE CRTAB 20 MEQ TABCR PO STA (10:20)
--- NOTE | 2023-12-08 15:54 | Hospitalist Progress Note ---
Date of Service December 08, 2023 Assessment & Plan (1) Fall: (2) Closed T8 spinal fracture: (3) Nasal bone fracture: (4) Supratherapeutic INR: (5) Seizure disorder: (6) Current long-term use of 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 medication with history of deep venous thrombosis (DVT): (7) T2DM (type 2 diabetes mellitus): (8) HLD (hyperlipidemia): (9) Lymphedema: Plan 63yo M with a PMH of DM II, dyslipidemia, venous insufficiency, history of liver failure, BPH, DVT in 2011 on coumadin, venous insufficiency, history of generalized convulsive epilepsy, history of a solitary kidney and other medical problems listed below who presents from home after a fall. Patient was found to have closed T8 spinal fracture for which Ortho spine was consulted on 11/23; recommended mobilization with physical therapy, not an area of spine amenable to bracing. No bending/lifting or twisting, good body mec hanics and posture. He also had nasal bone fracture for which [facility] was consulted; no indication for surgery. Follow-up with [facility] as outpatient. Patient had a code purple 11/25 AM, was hypoxic/altered/vomiting --> intubated 11/25 and transferred to ICU. CT head with no acute finding. CT abdomen pelvis with findings suggestive of SBO and lower lung consolidation suggestive of pneumonia or aspiration pneumonitis. CT chest suggestive of extensive bilateral lower lobe consolidation, pneumonia versus aspiration pneumonitis. BAL Cx positive of K. pneumoniae; sensitive to ceftriaxone Patient was extubated on 11/28; vasopressors were weaned off. Sedation was weaned off to on 11/29 Patient transferred out of the ICU on 11/30 Video swallow evaluation was done on 12/02; patient was started on a diet On evening of 12/02patient complaining of severe abdominal pain. CT abdomen/pelvis showed hematomas on left psoas muscle and left quadratus lumborum muscle. Per prior attending - Discussion was done with on-call surgeon; recommended supportive care; will need IR guided drainage if patient develops abscess in the region. Patient was transfused 2 unit of blood; bolus of IV fluids given On the morning of 12/03; patient was delirious; tachypneic and not directable. He was on 15 L of oxygen by nonrebreather. Stat chest x-ray showed pulmonary edema. Patient was given 1 dose of IV Lasix. He was transferred back to ICU. Weaned off of pressors and precedex and DG'd back to PCU on 12/05. Altered mental status(delirium OR metabolic encephalopathy) likely secondary to underlying infectious process/pain. On lactulose for possible hepatic encephalopathy. FMS in situ, having good output. Mentation seems to be improving. Continue antiseizure medication Retroperitoneal hematoma on 12/02 patient complaining of severe abdominal pain. 12/02 CT abdomen/pelvis showed hematomas on left psoas muscle and left quadratus lumborum muscle. 12/05 CTAP: stable hematoma. Anasarca. Per prior attending - Discussion was done with on-call surgeon; recommended supportive care; will need IR guided drainage if patient develops abscess in the region. Was given 2 units of blood. Monitor CBC. Transfusion as needed. Hold any anticoagulation. Trial DVT Px in next 1 days if Hb stays stable. d/w Pt and Mitchells in detail regarding pros and cons of starting the anticoagulation. Hemoglobin currently stable. OP f/u CTAP in - for pelvic hematoma. Septic shock Acute hypoxic respiratory failure Possible aspiration pneumonia Acute on chronic diastolic heart failure BAL Cx positive of K. pneumoniae; sensitive to ceftriaxone 12/03 chest x-ray - pulmonary edema and bilateral basal lobe consolidation Currently on cefepime, metron and doxycycline. Patient had previously received Zosyn and ceftriaxone IV Lasix as needed if permissible w/ BP w/ prn kcl supplementation. Plan for current atb for total of 2 weeks per pulm recs. Possible APD: pt complained of abd pain on 12/04-12/06, CTAP has been normal. SBO has been resolved. Pt moving bowels and eating ok. improvement in abd pain w/ PPI and simethicone. will follow. continue PPI. Acute kidney injury Likely secondary to sepsis/cardiorenal syndrome Creatinine up trended from 0.67-1.83 on 12/03; currently creatinine has improved. Urine output improving Continue support hemodynamics; continue antibiotics Nephrology on board; recommends supportive care. Small bowel obstructionresolved Earlier during the hospitalization; patient had developed ileus with small bowel obstruction. CT abdomen pelvis from 12/02no suggestion of bowel obstruction/inflammation c/w lactulose. Mechanical Fall Closed T8 spinal fracture Lumbar spine CT with oblique fracture through the anterior body of T8 which extends through the inferior endplate and likely involves the T8-T9 disc space. This fracture may be unstable. Mild prevertebral edema/hemorrhage is seen at the T8 level [facility] evaluated on 11/23-mobilization with physical therapy, not an area of spine amenable to bracing. No bending/lifting or twisting, good body mechanics and posture Pain control with Tylenol [id number], ketorolac and Dilaudid. Fall precautions PT OT reordered Nasal bone fractures No acute bleeding Continue ice, pain control Discussed with OFMS 11/24 no indication for surgery for now, follow-up with [facility] as an outpatient. Okay to resume his anticoagulation. 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 : Remote history . Anticoagulation on hold due to retroperitoneal hematoma. Uncontrolled DM II HbA1c 10.5 in Aug , A1c better this admission Hold home agents Basal/bolus insulin per protocol while in-patient BSG AC HS Seizure disorder Continue home Depakote, Dilantin and topiramate BLE neuropathy Gabapentin dose recently changed to 200mg TID BPH On Flomax and Proscar Bladder scan PRN Chronic lymphedema Chronic Venous insufficiency No open wounds Monitor for volume overload Gout Continue allopurinol Solitary kidney As per records DVT Ppx: SCDs for now Code status: FULL PCP: Cruz Dispo: PT/OT when able, plan for initiating DVT Px and then Tx gradually. Please note the above document was generated using voice recognition software. It may contain grammatical, syntax or spelling errors. Any formal questions or concerns about the content, text or information contained within the body of this dictation should be directly addressed to the provider for clarification Admission and Anticipated Discharge Date Admission Date: November 23, 2023 Subjective Patient seen and examined at bedside. He is awake, oriented, reports continued improvement of left thigh pain, no warmth/erythema/tenderness noted. He is alert oriented. Has fecal management system in situ, liquid bowels noted. Edwards catheter in situ noted. Per RN moving bowels well, appetite well, abdominal discomfort has improved significantly after starting PPI. Patient reports improving cough. Patient's Sister Lo and [id number] were updated at bedside, discussed about need for resuming anticoagulation, plan reached to start with prophylactic dose likely from aliyah and then progress to therapeutic dose with close monitoring of H&H. For now they are agreeable with the plan and will let me know if and when they want to change the plan. Physical Exam Physical Exam: GENERAL: Alert oriented x 3. on RA, NAD, appears ill/sick/frail. HEENT: No pallor, no icterus. Pupils equal, round and reactive to light. Oral mucosa moist. NECK: No JVD, no neck masses. nasal bridge swelling. HEART: S1 and S2 heard. Regular rate and rhythm. No murmur, no gallop. RESPIRATORY SYSTEM: Decreased breath sound at bases; crackles otherwise ABDOMEN: Abdomen slightly distended. CENTRAL NERVOUS SYSTEM: Grossly moves all extremities. EXTREMITIES: chronic lymphedema, no erythema seen. 1-2+ pitting edema present. no erythema/warmth or tender noted. Results & Data Results & Data Vital Signs (Past 12 Hours) Vital Signs Temp Pulse Pulse Resp BP Pulse Ox O2 Del Method 12/08/23 11:17 36.9 C 94 H 16 134/88 93 Nasal Cannula 12/08/23 08:00 Nasal Cannula 12/08/23 08:00 90 12/08/23 07:23 37.0 C 93 H 20 166/68 H 93 Nasal Cannula O2 Flow Rate 12/08/23 11:17 3 12/08/23 08:00 3 12/08/23 08:00 12/08/23 07:23 2.0
--- NOTE | 2023-12-08 18:15 | Nephrology Progress Note ---
Date of Service December 08, 2023 Assessment & Plan (1) KEYANNA (acute kidney injury): Plan: KEYANNA secondary to severe Hemodynamic Insult ( ATN) in a patient with single kidney. In fact I am happily surprised that his kidneys are doing as good as now despite the severe issue with bleeding, Low BP, Septic Shock, resp failure in the last few days. Creat today is better and is making urine. also BP and resp status better. nonoliguric stage 1 KEYANNA. Continue Supportive care with stable good BP and o2 status. No major issue with electrolytes or acidosis. does have some fluid overload and is about 9-10 liters +ve. >>continue lasix 40 mg IV daily >daily bmp will sign off. No nephro f/u in clinic needed Do recommend he check bmp w/ PCP at hosp d/c visit > if ongoing issues pls refer to nephro at that time (2) Acute hypoxic respiratory failure: Plan: Remains on 2L 02nc; cont same Admission and Anticipated Discharge Date Admission Date: November 23, 2023 Subjective pt c/o BL leg pain; feeling anxious ; no worsening sob Review of Systems 2 Review of Systems: All systems reviewed & are unremarkable except as noted in Subjective Physical Exam 2 Constitutional: well developed, + obese, + frail appearing and cooperative; no acute distress Eyes: EOM intact bilaterally ENMT: Ears: no external ear abnormality Nose: no external nose abnormality Mouth: + dry oral mucous membranes Neck: no nuchal rigidity Respiratory: normal respiratory effort Auscultation: + diminished lung sounds Cardiovascular: Rate/Rhythm: regular rate and + tachycardic Extremities: + edema Gastrointestinal (Abdomen): Inspection/Auscultation: normal bowel sounds P ercussion/Palpation: abdomen soft; abdomen nontender Musculoskeletal: Extremities: + abnormal strength Skin: no rashes, warm and dry Neurologic: fluent speech, no tremor Results & Data Vital Signs (Past 12 Hours) Vital Signs Temp Pulse Pulse Resp BP Pulse Ox O2 Del Method 12/08/23 16:09 91 H 12/08/23 16:00 36.9 C 92 H 20 144/75 H 92 Nasal Cannula 12/08/23 11:17 36.9 C 94 H 16 134/88 93 Nasal Cannula 12/08/23 08:00 Nasal Cannula 12/08/23 08:00 90 12/08/23 07:23 37.0 C 93 H 20 166/68 H 93 Nasal Cannula O2 Flow Rate 12/08/23 16:09 12/08/23 16:00 2.0 12/08/23 11:17 3 12/08/23 08:00 3 12/08/23 08:00 12/08/23 07:23 2.0 Laboratory Results 12/08/23 06:00 12/08/23 06:00
[2023-12-09] MEDS: ACETAMINOPHEN W/CODEINE #3 1 TAB PO PRN (01:27)
[2023-12-09 07:56] LABS: BUN Creatinine Ratio 24.3 (10-20); Calcium 6.9 mg/dl (8.6-10.3); Creatinine Clr Calc Pharmacy 142.9 ml/min; Est GFR (African American) 114.8 ml/min; Magnesium 1.9 mg/dl (1.7-2.4); Phosphorus 2.2 mg/dl (2.5-4.9); Potassium 3.9 mmol/L (3.5-5.1)
[2023-12-09 08:14] LABS: Hematocrit (blood only) 27.2 % (42.0-52.0); Hemoglobin 8.9 g/dl (14.0-18.0); Mean Corpuscular Hemoglobin 32.8 pg (25.0-34.0); Mean Corpuscular Hgb Conc 32.7 g/dL (32.0-36.0); Mean Corpuscular Volume 100.4 fL (80.0-100.0); Mean Platelet Volume 9.5 fL (9.4-12.4); Nucleated RBC # (auto) 0.03 K/uL (0.00-0.12); Nucleated RBC % (auto) 0.2 %; Platelet Count 166 K/uL (130-400); RDW Coefficient of Variation 15.6 % (11.5-14.5); RDW Standard Deviation 56.5 fL (36.4-46.3); Red Blood Count 2.71 M/uL (4.70-6.10); White Blood Count 14.66 K/ul (4.8-10.8)
[2023-12-09] MEDS: POT PHOSPHATE MONOBASIC W/ SOD TAB PO SCH (09:03)
[2023-12-09] MEDS: POTASSIUM CHLORIDE CRTAB 20 MEQ TABCR PO STA (10:14)
[2023-12-09 12:37] LABS: Hematocrit (blood only) 30.5 % (42.0-52.0); Hemoglobin 9.9 g/dl (14.0-18.0)
--- NOTE | 2023-12-09 13:24 | Pharmacy Report ---
Pharmacy Glycemic Short Note 2 - Date of Service December 09, 2023 - Glycemic Short BSG Results (Last 24 hours): 12/08/23 12/08/23 12/09/23 16:30 20:31 07:06 Glucose 106 H POC Glucose 129 H 150 H 12/09/23 12/09/23 07:07 11:19 Glucose POC Glucose 105 H 139 H OUTPATIENT ANTIDIABETIC REGIMEN: * Glipizide 10 mg PO BIDM * Tradjenta 5 mg PO daily * HbA1c: 7.5% (11/24/23) ASSESSMENT: 12/08: * Glycemic control acceptable over the last 24 hrs * 34 units SQ insulin given over last 24 hrs while tolerating a diet * Fasting BSG at goal with 20 units of basal insulin on board - will continue * Novolog CF and CR have performed well - no change PLAN FOR INPATIENT GLYCEMIC CONTROL: * Hold outpatient oral diabetes medications (metformin) * Basal insulin * Lantus 10 units BID * Bolus insulin * NovoLog per scale ACHS or Q6hrs while NPO * Goal Range: Low 110 mg/dL - High 140 mg/dL * Correction Factor: 20 mg/dL/unit * Nutritional / Prandial insulin per carb ratio of 1 unit per 7 grams CHO consumed
--- NOTE | 2023-12-09 16:01 | Hospitalist Progress Note ---
Date of Service December 09, 2023 Assessment & Plan (1) Fall: (2) Closed T8 spinal fracture: (3) Nasal bone fracture: (4) Supratherapeutic INR: (5) Seizure disorder: (6) Current long-term use of 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 medication with history of deep venous thrombosis (DVT): (7) T2DM (type 2 diabetes mellitus): (8) HLD (hyperlipidemia): (9) Lymphedema: Plan 63yo M with a PMH of DM II, dyslipidemia, venous insufficiency, history of liver failure, BPH, DVT in 2011 on coumadin, venous insufficiency, history of generalized convulsive epilepsy, history of a solitary kidney and other medical problems listed below who presents from home after a fall. Patient was found to have closed T8 spinal fracture for which Ortho spine was consulted on 11/23; recommended mobilization with physical therapy, not an area of spine amenable to bracing. No bending/lifting or twisting, good body mec hanics and posture. He also had nasal bone fracture for which O FMS was consulted; no indication for surgery. Follow-up with [facility] as outpatient. Patient had a code purple 11/25 AM, was hypoxic/altered/vomiting --> intubated 11/25 and transferred to ICU. CT head with no acute finding. CT abdomen pelvis with findings suggestive of SBO and lower lung consolidation suggestive of pneumonia or aspiration pneumonitis. CT chest suggestive of extensive bilateral lower lobe consolidation, pneumonia versus aspiration pneumonitis. BAL Cx positive of K. pneumoniae; sensitive to ceftriaxone Patient was extubated on 11/28; vasopressors were weaned off. Sedation was weaned off to on 11/29 Patient transferred out of the ICU on 11/30 Video swallow evaluation was done on 12/02; patient was started on a diet On evening of 12/02patient complaining of severe abdominal pain. CT abdomen/pelvis showed hematomas on left psoas muscle and left quadratus lumborum muscle. Per prior attending - Discussion was done with on-call surgeon; recommended supportive care; will need IR guided drainage if patient develops abscess in the region. Patient was transfused 2 unit of blood; bolus of IV fluids given On the morning of 12/03; patient was delirious; tachypneic and not directable. He was on 15 L of oxygen by nonrebreather. Stat chest x-ray showed pulmonary edema. Patient was given 1 dose of IV Lasix. He was transferred back to ICU. Weaned off of pressors and precedex and DG'd back to PCU on 12/05. Altered mental status(delirium OR metabolic encephalopathy) likely secondary to underlying infectious process/pain. On lactulose for possible hepatic encephalopathy. FMS in situ, having good output. Mentation improved. Continue antiseizure medication Retroperitoneal hematoma on 12/02 patient complaining of severe abdominal pain. 12/02 CT abdomen/pelvis showed hematomas on left psoas muscle and left quadratus lumborum muscle. 12/05 CTAP: stable hematoma. Anasarca. Per prior attending - Discussion was done with on-call surgeon; recommended supportive care; will need IR guided drainage if patient develops abscess in the region. Was given 2 units of blood. Monitor CBC. Transfusion as needed. Since hemoglobin has been stable and as per discussion with patient and his Sister Lo on 12/07, DVT prophylaxis dose will be initiated from 12/08 onwards with close monitoring of H&H. Then plan is to transition to heparin drip if H&H continues to be stable with a plan to start warfarin and eventually. Hemoglobin currently stable. OP f/u CTAP in - for pelvic hematoma. Septic shock Acute hypoxic respiratory failure Possible aspiration pneumonia Acute on chronic diastolic heart failure BAL Cx positive of K. pneumoniae; sensitive to ceftriaxone 12/03 chest x-ray - pulmonary edema and bilateral basal lobe consolidation Currently on cefepime, metron and doxycycline. Patient had previously received Zosyn and ceftriaxone IV Lasix as needed if permissible w/ BP w/ prn kcl supplementation per nephro recs 12/07. Plan for current atb for total of 2 weeks per pulm recs. Possible APD: pt complained of abd pain on 12/04-12/06, CTAP has been normal. SBO has been resolved. Pt moving bowels and eating ok. improvement in abd pain w/ PPI and simethicone. will follow. continue PPI. Acute kidney injury Likely secondary to sepsis/cardiorenal syndrome Creatinine up trended from 0.67-1.83 on 12/03; currently creatinine has improved. Urine output improving Continue support hemodynamics; continue antibiotics Nephrology on board; recommends supportive care. Small bowel obstructionresolved Earlier during the hospitalization; patient had developed ileus with small bowel obstruction. CT abdomen pelvis from 12/02no suggestion of bowel obstruction/inflammation c/w lactulose. Mechanical Fall Closed T8 spinal fracture Lumbar spine CT with oblique fracture through the anterior body of T8 which extends through the inferior endplate and likely involves the T8-T9 disc space. This fracture may be unstable. Mild prevertebral edema/hemorrhage is seen at the T8 level [facility] evaluated on 11/23-mobilization with physical therapy, not an area of spine amenable to bracing. No bending/lifting or twisting, good body mechanics and posture Pain control with Tylenol [id number], ketorolac and Dilaudid. Fall precautions PT OT reordered Nasal bone fractures No acute bleeding Continue ice, pain control Discussed with OFMS 11/24 no indication for surgery for now, follow-up with [facility] as an outpatient. Okay to resume his anticoagulation. 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 : Remote history . Anticoagulation on hold due to retroperi toneal hematoma. Uncontrolled DM II HbA1c 10.5 in Aug , A1c better this admission Hold home agents Basal/bolus insulin per protocol while in-patient BSG AC HS Seizure disorder Continue home Depakote, Dilantin and topiramate BLE neuropathy Gabapentin dose recently changed to 200mg TID BPH On Flomax and Proscar Bladder scan PRN Chronic lymphedema Chronic Venous insufficiency No open wounds Monitor for volume overload Gout Continue allopurinol Solitary kidney As per records DVT Ppx: SCDs for now Code status: FULL PCP: Cruz Dispo: PT/OT when able, plan for initiating DVT Px and then Tx gradually. Please note the above document was generated using voice recognition software. It may contain grammatical, syntax or spelling errors. Any formal questions or concerns about the content, text or information contained within the body of this dictation should be directly addressed to the provider for clarification Admission and Anticipated Discharge Date Admission Date: November 23, 2023 Subjective Patient seen and examined at bedside. He is awake, oriented, reports no abd pain or BLE. Per RN, patient tolerating diet, is moving bowels, no new acute event overnight. Patient reports continued improvement in his cough. Physical Exam Physical Exam: GENERAL: Alert oriented x 3. on RA, NAD, appears ill/sick/frail. HEENT: No pallor, no icterus. Pupils equal, round and reactive to light. Oral mucosa moist. NECK: No JVD, no neck masses. nasal bridge swelling. HEART: S1 and S2 heard. Regular rate and rhythm. No murmur, no gallop. RESPIRATORY SYSTEM: Decreased breath sound at bases; crackles otherwise ABDOMEN: Abdomen slightly distended. CENTRAL NERVOUS SYSTEM: Grossly moves all extremities. EXTREMITIES: chronic lymphedema, no erythema seen. 1-2+ pitting edema present. no erythema/warmth or tender noted. Results & Data Results & Data Vital Signs (Past 12 Hours) Vital Signs Temp Pulse Pulse Resp BP BP Pulse Ox 12/09/23 14:12 36.9 C 91 H 23 132/62 94 12/09/23 11:20 36.9 C 98 H 22 132/80 92 12/09/23 07:30 12/09/23 07:30 97 H 12/09/23 07:28 37.0 C 94 H 18 133/67 93 O2 Del Method O2 Flow Rate 12/09/23 14:12 Nasal Cannula 3 12/09/23 11:20 Nasal Cannula 3 12/09/23 07:30 Nasal Cannula 3 12/09/23 07:30 12/09/23 07:28 Oxymask 3
[2023-12-09] MEDS: HEPARIN SOD 5,000 UNIT/0.5 ML VIAL SQ SCH (17:23)
[2023-12-09] MEDS: LANTUS PER UNIT CHARGE SC ONE (21:22)
[2023-12-10 07:31] LABS: Hematocrit (blood only) 29.8 % (42.0-52.0); Hemoglobin 9.8 g/dl (14.0-18.0); Mean Corpuscular Hemoglobin 33.1 pg (25.0-34.0); Mean Corpuscular Hgb Conc 32.9 g/dL (32.0-36.0); Mean Corpuscular Volume 100.7 fL (80.0-100.0); Mean Platelet Volume 9.7 fL (9.4-12.4); Platelet Count 208 K/uL (130-400); RDW Coefficient of Variation 15.9 % (11.5-14.5); Red Blood Count 2.96 M/uL (4.70-6.10); White Blood Count 14.85 K/ul (4.8-10.8)
[2023-12-10 07:52] LABS: BUN Creatinine Ratio 21.3 (10-20); Calcium 7.2 mg/dl (8.6-10.3); Est GFR (African American) 111.6 ml/min; Est GFR (Non-African American) 96.3 ml/min; Magnesium 1.9 mg/dl (1.7-2.4); Phosphorus 2.7 mg/dl (2.5-4.9); Potassium 4.1 mmol/L (3.5-5.1)
[2023-12-10] MEDS: LANTUS PER UNIT CHARGE SQ SCH (09:05)
--- NOTE | 2023-12-10 12:13 | XRay Report ---
XR hip LT 2V w pelvis CLINICAL HISTORY: left hip pain TECHNIQUE: 2 views of the left hip and single frontal view of the pelvis were obtained. Comparison: Comparison is made to hip radiograph 10/22/2014 FINDINGS: There is no evidence of an acute fracture. Degenerative changes are seen in the hip joint. No soft ti ssue abnormality is seen. IMPRESSION: Degenerative changes without evidence of acute abnormality. ACT 112: Negative or not required by law. Electronically signed by: Umberto Johns M.D. 12/10/2023 12:11 PM
[2023-12-10] MEDS: DICLOFENAC SOD 1% GEL 100 GM TUBE EXT SCH (12:18)
--- NOTE | 2023-12-10 12:40 | XRay Report ---
XR knee LT 1 or 2V routine CLINICAL HISTORY: knee pain on rom, out of proportion COMPARISON: None FINDINGS: Alignment of the left knee is anatomic. No acute fracture. There are no osseous lesions. S uperior patellar spurring is noted. There is a small to moderate left knee joint effusion. Joint spac es are preserved. IMPRESSION: 1. No fractures within the left knee. 2. Small to moderate left knee joint effusion. ACT 112: Negative or not required by law. Electronically signed by: Omari Foreman M.D. 12/10/2023 12:39 PM
[2023-12-10 13:21] LABS: Hematocrit (blood only) 31.8 % (42.0-52.0); Hemoglobin 10.8 g/dl (14.0-18.0)
--- NOTE | 2023-12-10 15:52 | Hospitalist Progress Note ---
Date of Service December 10, 2023 Assessment & Plan (1) Fall: (2) Closed T8 spinal fracture: (3) Nasal bone fracture: (4) Supratherapeutic INR: (5) Seizure disorder: (6) Current long-term use of 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 medication with history of deep venous thrombosis (DVT): (7) T2DM (type 2 diabetes mellitus): (8) HLD (hyperlipidemia): (9) Lymphedema: Plan 63yo M with a PMH of DM II, dyslipidemia, venous insufficiency, history of liver failure, BPH, DVT in 2011 on coumadin, venous insufficiency, history of generalized convulsive epilepsy, history of a solitary kidney and other medical problems listed below who presents from home after a fall. Patient was found to have closed T8 spinal fracture for which Ortho spine was consulted on 11/23; recommended mobilization with physical therapy, not an area of spine amenable to bracing. No bending/lifting or twisting, good body mec hanics and posture. He also had nasal bone fracture for which [facility] was consulted; no indication for surgery. Follow-up with [facility] as outpatient. Patient had a code purple 11/25 AM, was hypoxic/altered/vomiting --> intubated 11/25 and transferred to ICU. CT head with no acute finding. CT abdomen pelvis with findings suggestive of SBO and lower lung consolidation suggestive of pneumonia or aspiration pneumonitis. CT chest suggestive of extensive bilateral lower lobe consolidation, pneumonia versus aspiration pneumonitis. BAL Cx positive of K. pneumoniae; sensitive to ceftriaxone Patient was extubated on 11/28; vasopressors were weaned off. Sedation was weaned off to on 11/29 Patient transferred out of the ICU on 11/30 Video swallow evaluation was done on 12/02; patient was started on a diet On evening of 12/02patient complaining of severe abdominal pain. CT abdomen/pelvis showed hematomas on left psoas muscle and left quadratus lumborum muscle. Per prior attending - Discussion was done with on-call surgeon; recommended supportive care; will need IR guided drainage if patient develops abscess in the region. Patient was transfused 2 unit of blood; bolus of IV fluids given On the morning of 12/03; patient was delirious; tachypneic and not directable. He was on 15 L of oxygen by nonrebreather. Stat chest x-ray showed pulmonary edema. Patient was given 1 dose of IV Lasix. He was transferred back to ICU. Weaned off of pressors and precedex and DG'd back to PCU on 12/05. Altered mental status(delirium OR metabolic encephalopathy) likely secondary to underlying infectious process/pain. On lactulose for possible hepatic encephalopathy. FMS in situ, having good output. Mentation improved. Continue antiseizure medication Retroperitoneal hematoma on 12/02 patient complaining of severe abdominal pain. 12/02 CT abdomen/pelvis showed hematomas on left psoas muscle and left quadratus lumborum muscle. 12/05 CTAP: stable hematoma. Anasarca. Per prior attending - Discussion was done with on-call surgeon; recommended supportive care; will need IR guided drainage if patient develops abscess in the region. Was given 2 units of blood. Monitor CBC. Transfusion as needed. Since hemoglobin has been stable and as per discussion with patient and his Sister Lo on 12/07, DVT prophylaxis initiated 12/08 --> HnH stable --> Hep drip started 12/09. Pt and his sister Lo was again informed of the plan that had been agreed upon. Closely monitor HnH, if stable cosider adding coumadin in next 1-2 days. Hemoglobin currently stable. OP f/u CTAP in - for pelvic hematoma. Septic shock Acute hypoxic respiratory failure Possible aspiration pneumonia Acute on chronic diastolic heart failure BAL Cx positive of K. pneumoniae; sensitive to ceftriaxone 12/03 chest x-ray - pulmonary edema and bilateral basal lobe consolidation Currently on cefepime, metron and doxycycline. Patient had previously received Zosyn and ceftriaxone IV Lasix as needed if permissible w/ BP w/ prn kcl supplementation per nephro recs 12/07. Plan for current atb for total of 2 weeks per pulm recs. Possible APD: pt complained of abd pain on 12/04-12/06, CTAP has been normal. SBO has been resolved. Pt moving bowels and eating ok. improvement in abd pain w/ PPI and simethicone. will follow. continue PPI. Acute kidney injury Likely secondary to sepsis/cardiorenal syndrome Creatinine up trended from 0.67-1.83 on 12/03; currently creatinine has improved. Urine output improving Continue support hemodynamics; continue antibiotics Nephrology on board; recommends supportive care. Small bowel obstructionresolved Earlier during the hospitalization; patient had developed ileus with small bowel obstruction. CT abdomen pelvis from 4/30thno suggestion of bowel obstruction/inflammation c/w lactulose. Mechanical Fall Closed T8 spinal fracture Lumbar spine CT with oblique fracture through the anterior body of T8 which extends through the inferior endplate and likely involves the T8-T9 disc space. This fracture may be unstable. Mild prevertebral edema/hemorrhage is seen at the T8 level [facility] evaluated on 11/23-mobilization with physical therapy, not an area of spine amenable to bracing. No bending/lifting or twisting, good body mechanics and posture Pain control with Tylenol [id number], ketorolac and Dilaudid. Fall precautions PT OT reordered Nasal bone fractures No acute bleeding Continue ice, pain control Discussed with OFMS 11/24 no indication for surgery for now, follow-up with [facility] as an outpatient. Okay to resume his anticoagulation. 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 : Remote history . Anticoagulation on hold due to retroperitoneal hematoma. Uncontrolled DM II HbA1c 10.5 in Aug , A1c better this admission Hold home agents Basal/bolus insulin per protocol while in-patient BSG AC HS Seizure disorder Continue home Depakote, Dilantin and topiramate BLE neuropathy Gabapentin dose recently changed to 200mg TID BPH On Flomax and Proscar Bladder scan PRN Chronic lymphedema Chronic Venous insufficiency No open wounds Monitor for volume overload Gout Continue allopurinol Solitary kidney As per records DVT Ppx: SCDs for now Code status: FULL PCP: Cruz Dispo: PT/OT when able, plan for initiating DVT Px and then Tx gradually. Please note the above document was generated using voice recognition software. It may contain grammatical, syntax or spelling errors. Any formal questions or concerns about the content, text or information contained within the body of this dictation should be directly addressed to the provider for clarification Admission and Anticipated Discharge Date Admission Date: November 23, 2023 Subjective Patient seen and examined at bedside. He is awake, oriented, reports no abd pain or BLE. Patient does report left knee pain/no left hip pain, still wanted to do x-ray left knee and hip to rule out acute pathology. Negative for acute findings. Will utilize Voltaren gel over the left knee, follow-up. If ongoing knee pain, consider orthopedic consult. As of now, no erythema/swelling/signs of inflammation noted at left knee. Per RN, patient tolerating diet, is moving bowels, no new acute event overnight. RN communicated to advance diet as tolerated. Patient reports continued improvement in his cough. Physical Exam Physical Exam: GENERAL: Alert oriented x 3. on RA, NAD, appears ill/sick/frail. HEENT: No pallor, no icterus. Pupils equal, round and reactive to light. Oral mucosa moist. NECK: No JVD, no neck masses. nasal bridge swelling. HEART: S1 and S2 heard. Regular rate and rhythm. No murmur, no gallop. RESPIRATORY SYSTEM: Decreased breath sound at bases; crackles otherwise ABDOMEN: Abdomen slightly distended. CENTRAL NERVOUS SYSTEM: Grossly moves all extremities. EXTREMITIES: chronic lymphedema, no erythema seen. 1-2+ pitting edema present. no erythema/warmth or tender noted. Results & Data Results & Data Vital Signs (Past 12 Hours) Vital Signs Temp Pulse Pulse Resp BP Pulse Ox O2 Del Method 12/10/23 15:32 98 H 12/10/23 15:19 36.7 C 100 H 19 113/56 L 90 Nasal Cannula 12/10/23 10:07 Nasal Cannula 12/10/23 07:51 96 H 12/10/23 07:39 37.1 C 102 H 19 118/76 94 Nasal Cannula O2 Flow Rate 12/10/23 15:32 12/10/23 15:19 3.0 12/10/23 10:07 3 12/10/23 07:51 12/10/23 07:39 3.0
[2023-12-10] MEDS: Heparin IV Adult Wt-Based Low-Dose *NO* INITIAL Bolus Protocol IV STA (17:36)
[2023-12-10] MEDS: HEPARIN SODIUM/DEXTROSE 25,000 UNITS/500 ML BAG IV SCH (17:47)
[2023-12-11 00:32] LABS: ANTI-Xa, UFH(UnfractionatedHep 0.14 IU/ml (0.3-0.7)
[2023-12-11 00:51] LABS: Hematocrit (blood only) 29.6 % (42.0-52.0); Hemoglobin 9.6 g/dl (14.0-18.0)
[2023-12-11] MEDS: HEPARIN IV BOLUS 4,000 UNITS in SYRINGE 0 ML IV ONE (01:27)
[2023-12-11 08:21] LABS: Hematocrit (blood only) 30.8 % (42.0-52.0); Hemoglobin 10.2 g/dl (14.0-18.0); Mean Corpuscular Hemoglobin 33.3 pg (25.0-34.0); Mean Corpuscular Hgb Conc 33.1 g/dL (32.0-36.0); Mean Corpuscular Volume 100.7 fL (80.0-100.0); Mean Platelet Volume 9.5 fL (9.4-12.4); Nucleated RBC # (auto) 0.02 K/uL (0.00-0.12); Nucleated RBC % (auto) 0.1 %; Platelet Count 250 K/uL (130-400); RDW Coefficient of Variation 15.9 % (11.5-14.5); RDW Standard Deviation 58.4 fL (36.4-46.3); Red Blood Count 3.06 M/uL (4.70-6.10); White Blood Count 13.46 K/ul (4.8-10.8)
[2023-12-11 08:26] LABS: ANTI-Xa, UFH(UnfractionatedHep 0.21 IU/ml (0.3-0.7)
[2023-12-11 08:57] LABS: BUN Creatinine Ratio 21.9 (10-20); Calcium 7.2 mg/dl (8.6-10.3); Creatinine Clr Calc Pharmacy 139.3 ml/min; Est GFR (African American) 112.8 ml/min; Est GFR (Non-African American) 97.3 ml/min; Magnesium 1.6 mg/dl (1.7-2.4); Phosphorus 2.5 mg/dl (2.5-4.9); Potassium 4.1 mmol/L (3.5-5.1)
[2023-12-11] MEDS ORDERED: PHENYTOIN 100 MG/4 ML UDP PO SCH (09:00)
[2023-12-11] MEDS: DIVALPROEX EXTENDED RELEASE 500 MG TAB PO SCH ×2 (09:52→14:43)
[2023-12-11] MEDS: LANTUS PER UNIT CHARGE SQ SCH ×2 (09:54→20:27)
[2023-12-11] MEDS: PHENYTOIN SUSP 125 MG/5 ML PO SCH (10:42)
--- NOTE | 2023-12-11 11:02 | Pharmacy Report ---
Pharmacy Glycemic Short Note 2 - Date of Service December 11, 2023 - Glycemic Short BSG Results (Last 24 hours): 12/10/23 12/10/23 12/10/23 11:25 16:31 20:23 Glucose POC Glucose 139 H 164 H 226 H 12/11/23 12/11/23 07:33 07:48 Glucose 167 H POC Glucose 246 H OUTPATIENT ANTIDIABETIC REGIMEN: * Glipizide 10 mg PO BIDM * Tradjenta 5 mg PO daily * HbA1c: 7.5% (11/24/23) ASSESSMENT: 12/10 * BSGs had been well controlled until heparin IV infusion (in D5W) was started yesterday evening * Fasting BSG now elevated, again likely due to IV dextrose provision. Will make small adjustment to Lantus, however would not increase greatly as pt would be prone to hypoglycemia if IV dextrose dc'd. * Will increase correctional insulin doses to help compensate for IV dextrose 12/08 * Glycemic control acceptable over the last 24 hrs * 34 units SQ insulin given over last 24 hrs while tolerating a diet * Fasting BSG at goal with 20 units of basal insulin on board - will continue * Novolog CF and CR have performed well - no change PLAN FOR INPATIENT GLYCEMIC CONTROL: * Hold outpatient oral diabetes medications (metformin) * Basal insulin * Increase Lantus back to 10 units BID * Bolus insulin * NovoLog per scale ACHS or Q6hrs while NPO * Goal Range: Low 110 mg/dL - High 140 mg/dL * Correction Factor: 15 mg/dL/unit * Nutritional / Prandial insulin per carb ratio of 1 unit per 7 grams CHO consumed
[2023-12-11] MEDS: ACETAMINOPHEN 500 MG TAB PO SCH (12:56)
--- NOTE | 2023-12-11 13:52 | CT Scan Report ---
CT OF THE HEAD WITHOUT CONTRAST CLINICAL HISTORY: Altered mental status. COMPARISON STUDY: Head CT November 26, 2023. CT DOSE: 904.42 mGy.cm TECHNIQUE: Helical axial images of the head were obtained without IV contrast. Automated exposure con trol was utilized for the study. A dose lowering technique was utilized adhering to the principles o f ALARA. FINDINGS: This study is significantly compromised given difficulty positioning and motion artifact. N o acute intracranial hemorrhage, midline shift or mass effect is identified. The ventricular system i s normal. Basal cisterns are patent. No extra axial collections are identified. There has been no sig nificant change in appearance of the brain. No calvarial fractures are identified IMPRESSION: No acute intracranial findings. Exam moderately compromised by artifact, as described ab ove. ACT 112: Negative or not required by law. Electronically signed by: Omari Foreman M.D. 12/11/2023 1:51 PM
[2023-12-11] MEDS: HEPARIN SOD 5,000 UNIT/0.5 ML VIAL SQ SCH (14:38)
[2023-12-11 15:29] LABS: ANTI-Xa, UFH(UnfractionatedHep < 0.10 IU/ml (0.3-0.7)
--- NOTE | 2023-12-11 15:51 | Hospitalist Progress Note ---
Date of Service December 11, 2023 Assessment & Plan (1) Fall: (2) Closed T8 spinal fracture: (3) Nasal bone fracture: (4) Supratherapeutic INR: (5) Seizure disorder: (6) Current long-term use of 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 medication with history of deep venous thrombosis (DVT): (7) T2DM (type 2 diabetes mellitus): (8) HLD (hyperlipidemia): (9) Lymphedema: Plan 63yo M with a PMH of DM II, dyslipidemia, venous insufficiency, history of liver failure, BPH, DVT in 2011 on coumadin, venous insufficiency, history of generalized convulsive epilepsy, history of a solitary kidney and other medical problems listed below who presents from home after a fall. Patient was found to have closed T8 spinal fracture for which Ortho spine was consulted on 11/23; recommended mobilization with physical therapy, not an area of spine amenable to bracing. No bending/lifting or twisting, good body mec hanics and posture. He also had nasal bone fracture for which [facility] was consulted; no indication for surgery. Follow-up with [facility] as outpatient. Patient had a code purple 11/25 AM, was hypoxic/altered/vomiting --> intubated 11/25 and transferred to ICU. CT head with no acute finding. CT abdomen pelvis with findings suggestive of SBO and lower lung consolidation suggestive of pneumonia or aspiration pneumonitis. CT chest suggestive of extensive bilateral lower lobe consolidation, pneumonia versus aspiration pneumonitis. BAL Cx positive of K. pneumoniae; sensitive to ceftriaxone Patient was extubated on 11/28; vasopressors were weaned off. Sedation was weaned off to on 11/29 Patient transferred out of the ICU on 11/30 Video swallow evaluation was done on 12/02; patient was started on a diet On evening of 12/02patient complaining of severe abdominal pain. CT abdomen/pelvis showed hematomas on left psoas muscle and left quadratus lumborum muscle. Per prior attending - Discussion was done with on-call surgeon; recommended supportive care; will need IR guided drainage if patient develops abscess in the region. Patient was transfused 2 unit of blood; bolus of IV fluids given On the morning of 12/03; patient was delirious; tachypneic and not directable. He was on 15 L of oxygen by nonrebreather. Stat chest x-ray showed pulmonary edema. Patient was given 1 dose of IV Lasix. He was transferred back to ICU. Weaned off of pressors and precedex and DG'd back to PCU on 12/05. Altered mental status(delirium OR metabolic encephalopathy) likely secondary to underlying infectious process/pain. On lactulose for possible hepatic encephalopathy. currently on hold due to diarreha Mentation improved. Continue antiseizure medication Retroperitoneal hematoma on 12/02 patient complaining of severe abdominal pain. 12/02 CT abdomen/pelvis showed hematomas on left psoas muscle and left quadratus lumborum muscle. 12/05 CTAP: stable hematoma. Anasarca. Per prior attending - Discussion was done with on-call surgeon; recommended supportive care; will need IR guided drainage if patient develops abscess in the region. Was given 2 units of blood. Monitor CBC. Transfusion as needed. Since hemoglobin has been stable but patient continues to be unsteady; continue heparin DVT prophylaxis dose. Plan to transition to full anticoagulation after patient is steady on his feet. Discussed with patient's sister at bedside on 12/11/2023. OP f/u CTAP in - for pelvic hematoma. Septic shock Acute hypoxic respiratory failure Possible aspiration pneumonia Acute on chronic diastolic heart failure BAL Cx positive of K. pneumoniae; sensitive to ceftriaxone 12/03 chest x-ray - pulmonary edema and bilateral basal lobe consolidation Finishing 7 days of cefepime and doxycyline. Patient had previously received Zosyn and ceftriaxone IV Lasix as needed if permissible w/ BP w/ prn kcl supplementation per nephro recs 12/07. Plan for current atb for total of 2 weeks per pulm recs. Possible APD: pt complained of abd pain on 12/04-12/06, CTAP has been normal. SBO has been resolved. improvement in abd pain w/ PPI and simethicone. will follow. continue PPI. Acute kidney injury Likely secondary to sepsis/cardiorenal syndrome Creatinine up trended from 0.67-1.83 on 12/03; currently creatinine has improved. Urine output improving Continue support hemodynamics; continue antibiotics Nephrology on board; recommends supportive care. Small bowel obstructionresolved Earlier during the hospitalization; patient had developed ileus with small bowel obstruction. CT abdomen pelvis from 12/02no suggestion of bowel obstruction/inflammation Mechanical Fall Closed T8 spinal fracture Lumbar spine CT with oblique fracture through the anterior body of T8 which extends through the inferior endplate and likely involves the T8-T9 disc space. This fracture may be unstable. Mild prevertebral edema/hemorrhage is seen at the T8 level [facility] evaluated on 11/23-mobilization with physical therapy, not an area of spine amenable to bracing. No bending/lifting or twisting, good body mechanics and posture Pain control with Tylenol [id number], ketorolac and Dilaudid. Fall precautions PT OT reordered Nasal bone fractures No acute bleeding Continue ice, pain control Discussed with OFMS 11/24 no indication for surgery for now, follow-up with [facility] as an outpatient. Okay to resume his anticoagulation. 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 : Remote history . Anticoagulation on hold due to retroperitoneal hematoma. Uncontrolled DM II HbA1c 10.5 in Aug , A1c better this admission Hold home agents Basal/bolus insulin per protocol while in-patient BSG AC HS Seizure disorder Continue home Depakote, Dilantin and topiramate BLE neuropathy Gabapentin dose recently changed to 200mg TID BPH On Flomax and Proscar Bladder scan PRN Chronic lymphedema Chronic Venous insufficiency No open wounds Monitor for volume overload Gout Continue allopurinol Solitary kidney As per records DVT Ppx:heparin Code status: FULL PCP: Cruz Dispo: [facility] in next few days Time spent evaluating patient, direct bedside care, chart review, placing orders, interpretation of diagnostic studies, discussion with consultants, patient, and family members, as well as other required patient management activities is 60 minutes Please note the above document was generated using voice recognition software. It may contain grammatical, syntax or spelling errors. Any formal questions or concerns about the content, text or information contained within the body of this dictation should be directly addressed to the provider for clarification Admission and Anticipated Discharge Date Admission Date: November 23, 2023 Subjective Patient appears to be delirious today. Needs multiple redirections. No significant events overnight Review of Systems Review of Systems: Unobtainable due to cognitive status Physical Exam Physical Exam: GENERAL: Comfortable, not in distress. Alert oriented x2 HEENT: No pallor, no icterus. Pupils equal, round and reactive to light. Oral mucosa dry. NECK: No JVD, no neck masses. nasal bridge swelling. HEART: S1 and S2 heard. Regular rate and rhythm. No murmur, no gallop. RESPIRATORY SYSTEM: Decreased breath sound at bases; ABDOMEN: Abdomen slightly distended. CENTRAL NERVOUS SYSTEM: Grossly moves all extremities. EXTREMITIES: chronic lymphedema, no erythema seen. Results & Data Results & Data Vital Signs (Past 12 Hours) Vital Signs Temp Pulse Pulse Resp BP BP Pulse Ox 12/11/23 15:45 37.2 C 98 H 21 145/89 H 97 12/11/23 15:19 100 H 12/11/23 11:51 12/11/23 11:47 36.7 C 104 H 22 149/73 H 94 12/11/23 08:08 36.9 C 109 H 24 111/75 90 12/11/23 08:00 110 H 12/11/23 04:00 36.6 C 105 H 18 148/73 H 92 O2 Del Method O2 Flow Rate 12/11/23 15:45 Nasal Cannula 3 12/11/23 15:19 12/11/23 11:51 Nasal Cannula 3 12/11/23 11:47 Nasal Cannula 3 12/11/23 08:08 Nasal Cannula 3 12/11/23 08:00 12/11/23 04:00 Oxymask 3
[2023-12-11] MEDS: LORazepam 0.5 MG TAB PO STA (23:26)
[2023-12-12] MEDS: HYDROmorphone INJ 0.5 MG/0.5 ML SYR IV STA (01:49)
[2023-12-12] MEDS: LANTUS PER UNIT CHARGE SQ SCH (08:07)
--- NOTE | 2023-12-12 09:56 | Ultrasound Report ---
ULTRASOUND BILATERAL LOWER EXTREMITY VENOUS CLINICAL HISTORY: Leg pain and swelling COMPARISON STUDY: Bilateral lower extremity venous ultrasound dated 11/26/2023 TECHNIQUE: Real-time, grayscale, and color Doppler sonography of the deep veins of the right and left lower extremity was performed from the inguinal crease to the calf. Compression and augmentation wer e utilized. FINDINGS: Right lower extremity: There is nearly occlusive deep venous thrombosis identified in the common femo ral vein. The superficial femoral and popliteal veins are patent and normally compressible. There is nearly occlusive superficial venous thrombosis in the profunda femoris vein at the junction of the co mmon femoral vein. The greater saphenous vein appears clear. The visualized calf veins are patent. Left lower extremity: Stranding in the distal superficial femoral vein and the popliteal vein is cons istent with chronic thrombus. This is similar to previous. The common femoral, superficial femoral, a nd popliteal veins are otherwise patent and normally compressible. The greater saphenous vein and the profunda femoris vein at the junction with the common femoral vein are clear. The visualized calf ve ins are patent. IMPRESSION: 1. There is acute nearly occlusive deep venous thrombosis identified in the right common femoral vein . 2. Acute superficial venous thrombus is seen within the right profunda femoris vein. 3. Trace chronic thrombus is again seen in the superficial femoral and popliteal veins. ACT 112: Negative or not required by law. Electronically signed by: Alfredo Cade M.D. 12/12/2023 9:55 AM
[2023-12-12] MEDS ORDERED: ENOXAPARIN 1 MG/KG SC SCH (10:15)
[2023-12-12] MEDS ORDERED: HEPARIN SOD (PORCINE) 1000 UNIT/ML IV ONE (10:21)
[2023-12-12] MEDS: HYDROmorphone INJ 0.5 MG/0.5 ML SYR IV PRN ×2 (10:26→17:46)
[2023-12-12] MEDS ORDERED: HEPARIN SODIUM/DEXTROSE 25,000 UNITS/500 ML BAG IV SCH (10:30)
[2023-12-12] MEDS: ENOXAPARIN INJ 120 MG/0.8 ML SYR SQ SCH (10:34)
[2023-12-12] MEDS: Heparin IV Adult Wt-Based Standard w/ INITIAL Bolus Protocol IV STA (10:51)
--- NOTE | 2023-12-12 12:07 | Pharmacy Report ---
Pharmacy Glycemic Short Note 2 - Date of Service December 12, 2023 - Glycemic Short BSG Results (Last 24 hours): 12/11/23 12/11/23 12/12/23 16:10 20:00 07:22 POC Glucose 72 122 H 178 H OUTPATIENT ANTIDIABETIC REGIMEN: * Glipizide 10 mg PO BIDM * Tradjenta 5 mg PO daily * HbA1c: 7.5% (11/24/23) ASSESSMENT: 12/11 * Glycemic control improved following dc of IV heparin infusion (mixed in D5W) * Fasting BSG elevated yet acceptable this am, FBS 178. Will titrated down basal dose however as PO intake has been limited over last 24 hrs and dextrose IV has stopped. * Will lessen correctional insulin doses now that continuous IV dextrose has stopped 12/10 * BSGs had been well controlled until heparin IV infusion (in D5W) was started yesterday evening * Fasting BSG now elevated, again likely due to IV dextrose provision. Will make small adjustment to Lantus, however would not increase greatly as pt would be prone to hypoglycemia if IV dextrose dc'd. * Will increase correctional insulin doses to help compensate for IV dextrose 12/08 * Glycemic control acceptable over the last 24 hrs * 34 units SQ insulin given over last 24 hrs while tolerating a diet * Fasting BSG at goal with 20 units of basal insulin on board - will continue * Novolog CF and CR have performed well - no change PLAN FOR INPATIENT GLYCEMIC CONTROL: * Hold outpatient oral diabetes medications (metformin) * Basal insulin * Decrease Lantus to 8 units BID * Bolus insulin * NovoLog per scale ACHS or Q6hrs while NPO * Goal Range: Low 110 mg/dL - High 140 mg/dL * Correction Factor: 20 mg/dL/unit * Nutritional / Prandial insulin per carb ratio of 1 unit per 7 grams CHO consumed
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
--- NOTE | 2023-12-12 14:39 | Hospitalist Progress Note ---
Date of Service December 12, 2023 Assessment & Plan (1) Fall: (2) Closed T8 spinal fracture: (3) Nasal bone fracture: (4) Supratherapeutic INR: (5) Seizure disorder: (6) Current long-term use of 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 medication with history of deep venous thrombosis (DVT): (7) T2DM (type 2 diabetes mellitus): (8) HLD (hyperlipidemia): (9) Lymphedema: Plan 63yo M with a PMH of DM II, dyslipidemia, venous insufficiency, history of liver failure, BPH, DVT in 2011 on coumadin, venous insufficiency, history of generalized convulsive epilepsy, history of a solitary kidney and other medical problems listed below who presents from home after a fall. Patient was found to have closed T8 spinal fracture for which Ortho spine was consulted on 11/23; recommended mobilization with physical therapy, not an area of spine amenable to bracing. No bending/lifting or twisting, good body mec hanics and posture. He also had nasal bone fracture for which [facility] was consulted; no indication for surgery. Follow-up with [facility] as outpatient. Patient had a code purple 11/25 AM, was hypoxic/altered/vomiting --> intubated 11/25 and transferred to ICU. CT head with no acute finding. CT abdomen pelvis with findings suggestive of SBO and lower lung consolidation suggestive of pneumonia or aspiration pneumonitis. CT chest suggestive of extensive bilateral lower lobe consolidation, pneumonia versus aspiration pneumonitis. BAL Cx positive of K. pneumoniae; sensitive to ceftriaxone Patient was extubated on 11/28; vasopressors were weaned off. Sedation was weaned off to on 11/29 Patient transferred out of the ICU on 11/30 Video swallow evaluation was done on 12/02; patient was started on a diet On evening of 12/02patient complaining of severe abdominal pain. CT abdomen/pelvis showed hematomas on left psoas muscle and left quadratus lumborum muscle. Per prior attending - Discussion was done with on-call surgeon; recommended supportive care; will need IR guided drainage if patient develops abscess in the region. Patient was transfused 2 unit of blood; bolus of IV fluids given On the morning of 12/03; patient was delirious; tachypneic and not directable. He was on 15 L of oxygen by nonrebreather. Stat chest x-ray showed pulmonary edema. Patient was given 1 dose of IV Lasix. He was transferred back to ICU. Weaned off of pressors and precedex and DG'd back to PCU on 12/05. on 12/12/2023venous duplex was obtained as patient complained of bilateral lower extremity pain. Found to have showed Acute DVT of right common femoral vein Patient was off therapeutic anticoagulation due to retroperitoneal hematoma Duplex from ; DVT of right femoral vein Will restart him on therapeutic Lovenox. Will need close monitoring of CBC to see monitor signs of hemorrhage. Vascular surgery is also consulted for possible placement of IVC filter given the high risks of bleeding. I discussed with patient's sister at bedside that he has high risks of repeat bleeding given his recent retroperitoneal hematoma development but, he also has a proximal DVT which is high risks for progression to PE. His hemoglobin has been stable for last few days; decision made to start therapeutic anticoagulation and monitor for any signs of bleeding. She verbalized understanding and is in agreement with the plan Retroperitoneal hematoma on 12/02 patient complaining of severe abdominal pain. 12/02 CT abdomen/pelvis showed hematomas on left psoas muscle and left quadratus lumborum muscle. 12/05 CTAP: stable hematoma. Anasarca. Discussion was done with on-call surgeon; recommended supportive care; will need IR guided drainage if patient develops abscess in the region. Was given 2 units of blood. Monitor CBC. Transfusion as needed. Septic shock Acute hypoxic respiratory failure Possible aspiration pneumonia Acute on chronic diastolic heart failure BAL Cx positive of K. pneumoniae; sensitive to ceftriaxone 12/03 chest x-ray - pulmonary edema and bilateral basal lobe consolidation Finishing 7 days of cefepime and doxycyline. Patient had previously received Zosyn and ceftriaxone IV Lasix as needed if permissible w/ BP w/ prn kcl supplementation per nephro recs 12/07. Plan for current atb for total of 2 weeks per pulm recs. Altered mental status(delirium OR metabolic encephalopathy) likely secondary to underlying infectious process/pain. On lactulose for possible hepatic encephalopathy. currently on hold due to diarreha Mentation improved. Continue antiseizure medication Possible APD: pt complained of abd pain on 12/04-12/06, CTAP has been normal. SBO has been resolved. improvement in abd pain w/ PPI and simethicone. will follow. continue PPI. Acute kidney injury Likely secondary to sepsis/cardiorenal syndrome Creatinine up trended from 0.67-1.83 on 12/03; currently creatinine has improved. Urine output improving Continue support hemodynamics; continue antibiotics Nephrology on board; recommends supportive care. Small bowel obstructionresolved Earlier during the hospitalization; patient had developed ileus with small bowel obstruction. CT abdomen pelvis from 12/02no suggestion of bowel obstruction/inflammation Mechanical Fall Closed T8 spinal fracture Lumbar spine CT with oblique fracture through the anterior body of T8 which extends through the inferior endplate and likely involves the T8-T9 disc space. This fracture may be unstable. Mild prevertebral edema/hemorrhage is seen at the T8 level [facility] evaluated on 11/23-mobilization with physical therapy, not an area of spine amenable to bracing. No bending/lifting or twisting, good body mechanics and posture Pain control with Tylenol [id number], ketorolac and Dilaudid. Fall precautions PT OT reordered Nasal bone fractures No acute bleeding Continue ice, pain control Discussed with [facility] 11/24 no indication for surgery for now, follow-up with [facility] as an outpatient. 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 :On Lovenox Uncontrolled DM II HbA1c 10.5 in Aug , A1c better this admission Hold home agents Basal/bolus insulin per protocol while in-patient BSG AC HS Seizure disorder Continue home Depakote, Dilantin and topiramate BLE neuropathy Gabapentin dose recently changed to 200mg TID BPH On Flomax and Proscar Bladder scan PRN Chronic lymphedema Chronic Venous insufficiency No open wounds Monitor for volume overload Gout Continue allopurinol Solitary kidney As per records DVT Ppx:lovenox Code status: FULL PCP: Cruz Dispo: [facility] in next few days Time spent evaluating patient, direct bedside care, chart review, placing orders, interpretation of diagnostic studies, discussion with consultants, patient, and family members, as well as other required patient management activities is 60 minutes Please note the above document was generated using voice recognition software. It may contain grammatical, syntax or spelling errors. Any formal questions or concerns about the content, text or information contained within the body of this dictation should be directly addressed to the provider for clarification Admission and Anticipated Discharge Date Admission Date: November 23, 2023 Subjective Patient seen and examined at bedside. He reports bilateral lower extremity pain. He is more oriented today; needs multiple redirections Review of Systems Review of Systems: All systems reviewed & are unremarkable except as noted in Subjective Physical Exam Physical Exam: GENERAL: Comfortable, not in distress. Alert oriented x2 HEENT: No pallor, no icterus. Pupils equal, round and reactive to light. Oral mucosa dry. NECK: No JVD, no neck masses. nasal bridge swelling. HEART: S1 and S2 heard. Regular rate and rhythm. No murmur, no gallop. RESPIRATORY SYSTEM: Decreased breath sound at bases; ABDOMEN: Abdomen slightly distended. CENTRAL NERVOUS SYSTEM: Grossly moves all extremities. EXTREMITIES: chronic lymphedema, Results & Data Results & Data Vital Signs (Past 12 Hours) Vital Signs Temp Pulse Pulse Resp BP BP Pulse Ox 12/12/23 11:00 37.1 C 107 H 24 117/71 89 L 12/12/23 09:45 12/12/23 08:38 36.9 C 116 H 23 126/66 89 L 12/12/23 07:23 113 H 12/12/23 03:35 36.5 C 102 H 22 131/85 94 O2 Del Method O2 Flow Rate 12/12/23 11:00 Nasal Cannula 4 12/12/23 09:45 Nasal Cannula 2 12/12/23 08:38 Nasal Cannula 3 12/12/23 07:23 12/12/23 03:35 Nasal Cannula 2
[2023-12-12 14:43] LABS: Eosinophils # (auto) 0.22 K/uL (0.00-0.50); Eosinophils % (auto) 2.1 %; Hematocrit (blood only) 28.2 % (42.0-52.0); Hemoglobin 9.3 g/dl (14.0-18.0); Immature Granulocytes # (auto) 0.26 K/uL (0.01-0.20); Immature Granulocytes % (auto) 2.5 %; Lymphocytes # (auto) 2.77 K/uL (1.20-3.40); Mean Corpuscular Hemoglobin 33.6 pg (25.0-34.0); Mean Corpuscular Volume 101.8 fL (80.0-100.0); Mean Platelet Volume 9.5 fL (9.4-12.4); Monocytes # (auto) 1.12 K/uL (0.11-0.59); Monocytes % (auto) 10.9 %; Neutrophils # (auto) 5.78 K/uL (1.40-6.50); Neutrophils % (auto) 56.5 %; Nucleated RBC # (auto) 0.03 K/uL (0.00-0.12); Nucleated RBC % (auto) 0.3 %; Platelet Count 241 K/uL (130-400); RDW Standard Deviation 59.1 fL (36.4-46.3); Red Blood Count 2.77 M/uL (4.70-6.10); White Blood Count 10.25 K/ul (4.8-10.8)
[2023-12-12 19:19] LABS: Basophils # (auto) 0.12 K/uL (0.00-0.20); Basophils % (auto) 1.1 %; Eosinophils # (auto) 0.19 K/uL (0.00-0.50); Eosinophils % (auto) 1.8 %; Hematocrit (blood only) 31.6 % (42.0-52.0); Hemoglobin 9.9 g/dl (14.0-18.0); Immature Granulocytes # (auto) 0.27 K/uL (0.01-0.20); Immature Granulocytes % (auto) 2.5 %; Lymphocytes # (auto) 2.94 K/uL (1.20-3.40); Lymphocytes % (auto) 27.4 %; Mean Corpuscular Hemoglobin 33.3 pg (25.0-34.0); Mean Corpuscular Hgb Conc 31.3 g/dL (32.0-36.0); Mean Corpuscular Volume 106.4 fL (80.0-100.0); Mean Platelet Volume 9.7 fL (9.4-12.4); Monocytes # (auto) 1.17 K/uL (0.11-0.59); Monocytes % (auto) 10.9 %; Neutrophils # (auto) 6.05 K/uL (1.40-6.50); Neutrophils % (auto) 56.3 %; Platelet Count 251 K/uL (130-400); RDW Coefficient of Variation 16.4 % (11.5-14.5); RDW Standard Deviation 62.9 fL (36.4-46.3); Red Blood Count 2.97 M/uL (4.70-6.10); White Blood Count 10.74 K/ul (4.8-10.8)
[2023-12-12] MEDS: ZOLPIDEM TARTRATE 5 MG TAB PO PRN (20:56)
[2023-12-13 07:33] LABS: Basophils # (auto) 0.07 K/uL (0.00-0.20); Basophils % (auto) 0.9 %; Eosinophils # (auto) 0.23 K/uL (0.00-0.50); Eosinophils % (auto) 2.9 %; Hematocrit (blood only) 30.4 % (42.0-52.0); Hemoglobin 9.9 g/dl (14.0-18.0); Immature Granulocytes # (auto) 0.21 K/uL (0.01-0.20); Immature Granulocytes % (auto) 2.7 %; Lymphocytes # (auto) 2.67 K/uL (1.20-3.40); Lymphocytes % (auto) 34.2 %; Mean Corpuscular Hemoglobin 33.8 pg (25.0-34.0); Mean Corpuscular Hgb Conc 32.6 g/dL (32.0-36.0); Mean Corpuscular Volume 103.8 fL (80.0-100.0); Mean Platelet Volume 9.5 fL (9.4-12.4); Monocytes # (auto) 0.72 K/uL (0.11-0.59); Monocytes % (auto) 9.2 %; Neutrophils % (auto) 50.1 %; Nucleated RBC # (auto) 0.02 K/uL (0.00-0.12); Nucleated RBC % (auto) 0.3 %; Platelet Count 230 K/uL (130-400); RDW Coefficient of Variation 16.6 % (11.5-14.5); Red Blood Count 2.93 M/uL (4.70-6.10)
[2023-12-13 08:52] LABS: Albumin Globulin Ratio 0.7 (0.9-2); Albumin Level 2.4 gm/dl (3.4-5.0); BUN Creatinine Ratio 22.4 (10-20); Bilirubin,Total 0.5 mg/dl (0.2-1.0); Calcium 7.7 mg/dl (8.6-10.3); Creatinine Clr Calc Pharmacy 131.6 ml/min; Est GFR (Non-African American) 95.7 ml/min; Globulin 3.4 gm/dl (2.5-4.0); Total Protein 5.8 gm/dl (6.0-8.3)
--- NOTE | 2023-12-13 11:33 | Hospitalist Progress Note ---
Date of Service December 13, 2023 Assessment & Plan (1) Fall: (2) Closed T8 spinal fracture: (3) Nasal bone fracture: (4) Supratherapeutic INR: (5) Seizure disorder: (6) Current long-term use of 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 medication with history of deep venous thrombosis (DVT): (7) T2DM (type 2 diabetes mellitus): (8) HLD (hyperlipidemia): (9) Lymphedema: Plan 63yo M with a PMH of DM II, dyslipidemia, venous insufficiency, history of liver failure, BPH, DVT in 2011 on coumadin, venous insufficiency, history of generalized convulsive epilepsy, history of a solitary kidney and other medical problems listed below who presents from home after a fall. Patient was found to have closed T8 spinal fracture for which Ortho spine was consulted on 11/23; recommended mobilization with physical therapy, not an area of spine amenable to bracing. No bending/lifting or twisting, good body me chanics and posture. He also had nasal bone fracture for which [facility] was consulted; no indication for surgery. Follow-up with [facility] as outpatient. Patient had a code purple 11/25 AM, was hypoxic/altered/vomiting --> intubated 11/25 and transferred to ICU. CT head with no acute finding. CT abdomen pelvis with findings suggestive of SBO and lower lung consolidation suggestive of pneumonia or aspiration pneumonitis. CT chest suggestive of extensive bilateral lower lobe consolidation, pneumonia versus aspiration pneumonitis. BAL Cx positive of K. pneumoniae; sensitive to ceftriaxone Patient was extubated on 11/28; vasopressors were weaned off. Sedation was weaned off to on 11/29 Patient transferred out of the ICU on 11/30 Video swallow evaluation was done on 12/02; patient was started on a diet On evening of 12/02patient complaining of severe abdominal pain. CT abdomen/pelvis showed hematomas on left psoas muscle and left quadratus lumborum muscle. Per prior attending - Discussion was done with on-call surgeon; recommended supportive care; will need IR guided drainage if patient develops abscess in the region. Patient was transfused 2 unit of blood; bolus of IV fluids given On the morning of 12/03; patient was delirious; tachypneic and not directable. He was on 15 L of oxygen by nonrebreather. Stat chest x-ray showed pulmonary edema . Patient was given 1 dose of IV Lasix. He was transferred back to ICU. Weaned off of pressors and precedex and DG'd back to PCU on 12/05. on 12/12/2023venous duplex was obtained as patient complained of bilateral lower extremity pain. Found to have showed Acute DVT of right common femoral vein Patient was off therapeutic anticoagulation due to retroperitoneal hematoma Duplex from ; DVT of right femoral vein Started on therapeutic Lovenox. Continue to monitor CBC; hemoglobin stable around 9-10 Vascular surgery was consulted for possible IVC placement; recommended anticoagulation for the time being. If patient has rebleeding; they will consider IVC filter placement. Retroperitoneal hematoma on 12/02 patient complaining of severe abdominal pain. 12/02 CT abdomen/pelvis showed hematomas on left psoas muscle and left quadratus lumborum muscle. 12/05 CTAP: stable hematoma. Anasarca. Discussion was done with on-call surgeon on 11/22; recommended supportive care; will need IR guided drainage if patient develops abscess in the region. Was given 2 units of blood. Monitor CBC. Transfusion as needed. Septic shock Acute hypoxic respiratory failure Possible aspiration pneumonia Acute on chronic diastolic heart failure BAL Cx positive of K. pneumoniae; sensitive to ceftriaxone 12/03 chest x-ray - pulmonary edema and bilateral basal lobe consolidation Finishing 7 days of cefepime and doxycyline. Patient had previously received Zosyn and ceftriaxone IV Lasix as needed if permissible w/ BP w/ prn kcl supplementation per nephro recs 12/07. Altered mental status(delirium OR metabolic encephalopathy) likely secondary to underlying infectious process/pain. On lactulose for possible hepatic encephalopathy. currently on hold due to diarreha Mentation improved. Continue antiseizure medication Possible APD: pt complained of abd pain on 12/04-12/06, CTAP has been normal. SBO has been resolved. improvement in abd pain w/ PPI and simethicone. will follow. continue PPI. Acute kidney injury Likely secondary to sepsis/cardiorenal syndrome Creatinine up trended from 0.67-1.83 on 12/03; currently creatinine has improved. Urine output improving Continue support hemodynamics; continue antibiotics Nephrology on board; recommends supportive care. Small bowel obstructionresolved Earlier during the hospitalization; patient had developed ileus with small bowel obstruction. CT abdomen pelvis from 12/02no suggestion of bowel obstruction/inflammation On lactulose Mechanical Fall Closed T8 spinal fracture Lumbar spine CT with oblique fracture through the anterior body of T8 which extends through the inferior endplate and likely involves the T8-T9 disc space. This fracture may be unstable. Mild prevertebral edema/hemorrhage is seen at the T8 level [facility] evaluated on 11/23-mobilization with physical therapy, not an area of spine amenable to bracing. No bending/lifting or twisting, good body mechanics and posture Pain control with Tylenol [id number], ketorolac and Dilaudid. Fall precautions PT OT reordered Nasal bone fractures No acute bleeding Continue ice, pain control Discussed with [facility]MS 11/24 no indication for surgery for now, follow-up with [facility] as an outpatient. 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 :On Lovenox Uncontrolled DM II HbA1c 10.5 in Aug , A1c better this admission Hold home agents Basal/bolus insulin per protocol while in-patient BSG AC HS Seizure disorder Continue home Depakote, Dilantin and topiramate BLE neuropathy Gabapentin dose recently changed to 200mg TID BPH On Flomax and Proscar Bladder scan PRN Chronic lymphedema Chronic Venous insufficiency No open wounds Monitor for volume overload Gout Continue allopurinol Solitary kidney As per records DVT Ppx:lovenox Code status: FULL PCP: Cruz Dispo: [facility] in next few days Time spent evaluating patient, direct bedside care, chart review, placing orders, interpretation of diagnostic studies, discussion with consultants, patient, and family members, as well as other required patient management activities is 50 minutes Please note the above document was generated using voice recognition software. It may contain grammatical, syntax or spelling errors. Any formal questions or concerns about the content, text or information contained within the body of this dictation should be directly addressed to the provider for clarification Admission and Anticipated Discharge Date Admission Date: November 23, 2023 Subjective Patient seen and examined at bedside. He is more awake and interactive today. He denies pain and discomfort today. He reports that he was able to eat most of his breakfast No significant events overnight Hemoglobin is currently stable Review of Systems Review of Systems: All systems reviewed & are unremarkable except as noted in Subjective Physical Exam Physical Exam: GENERAL: Comfortable, not in distress. Alert oriented x2 HEENT: No pallor, no icterus. Pupils equal, round and reactive to light. Oral mucosa dry. NECK: No JVD, no neck masses. nasal bridge swelling. HEART: S1 and S2 heard. Regular rate and rhythm. No murmur, no gallop. RESPIRATORY SYSTEM: Decreased breath sound at bases; ABDOMEN: Abdomen slightly distended. CENTRAL NERVOUS SYSTEM: Grossly moves all extremities. EXTREMITIES: chronic lymphedema, Results & Data Results & Data Vital Signs (Past 12 Hours) Vital Signs Temp Pulse Pulse Resp BP BP Pulse Ox 12/13/23 10:57 37.0 C 91 H 24 97/49 L 99 12/13/23 09:48 12/13/23 08:00 88 12/13/23 07:21 36.8 C 92 H 21 105/55 L 96 12/13/23 02:59 36.9 C 89 18 123/68 99 12/13/23 00:00 100 H O2 Del Method O2 Flow Rate 12/13/23 10:57 Nasal Cannula 3 12/13/23 09:48 Nasal Cannula 2 12/13/23 08:00 12/13/23 07:21 Nasal Cannula 3 12/13/23 02:59 Nasal Cannula 2.5 12/13/23 00:00
--- NOTE | 2023-12-13 12:45 | Pharmacy Report ---
Pharmacy Glycemic Short Note 2 - Date of Service December 13, 2023 - Glycemic Short BSG Results (Last 24 hours): 12/12/23 12/12/23 12/12/23 13:06 16:59 19:52 Glucose POC Glucose 120 H 97 149 H 12/13/23 12/13/23 12/13/23 07:14 07:19 11:30 Glucose 86 POC Glucose 86 130 H OUTPATIENT ANTIDIABETIC REGIMEN: * Glipizide 10 mg PO BIDM * Tradjenta 5 mg PO daily * HbA1c: 7.5% (11/24/23) ASSESSMENT: 12/12 * Fasting 86 mg/dL with reduced lantus dose yesterday- will continue for today as intake expected to increase, reduce tomorrow if still below goal * Prandial BSGs have been within range, continue current novolog parameters 12/11 * Glycemic control improved following dc of IV heparin infusion (mixed in D5W) * Fasting BSG elevated yet acceptable this am, FBS 178. Will titrated down basal dose however as PO intake has been limited over last 24 hrs and dextrose IV has stopped. * Will lessen correctional insulin doses now that continuous IV dextrose has stopped 12/10 * BSGs had been well controlled until heparin IV infusion (in D5W) was started yesterday evening * Fasting BSG now elevated, again likely due to IV dextrose provision. Will make small adjustment to Lantus, however would not increase greatly as pt would be prone to hypoglycemia if IV dextrose dc'd. * Will increase correctional insulin doses to help compensate for IV dextrose 12/08 * Glycemic control acceptable over the last 24 hrs * 34 units SQ insulin given over last 24 hrs while tolerating a diet * Fasting BSG at goal with 20 units of basal insulin on board - will continue * Novolog CF and CR have performed well - no change PLAN FOR INPATIENT GLYCEMIC CONTROL: * Hold outpatient oral diabetes medications (metformin) * Basal insulin * Lantus to 8 units BID * Bolus insulin * NovoLog per scale ACHS or Q6hrs while NPO * Goal Range: Low 110 mg/dL - High 140 mg/dL * Correction Factor: 20 mg/dL/unit * Nutritional / Prandial insulin per carb ratio of 1 unit per 7 grams CHO consumed
[2023-12-14 08:35] LABS: Basophils # (auto) 0.06 K/uL (0.00-0.20); Basophils % (auto) 0.9 %; Eosinophils # (auto) 0.15 K/uL (0.00-0.50); Eosinophils % (auto) 2.1 %; Hematocrit (blood only) 31.1 % (42.0-52.0); Hemoglobin 10.2 g/dl (14.0-18.0); Immature Granulocytes # (auto) 0.11 K/uL (0.01-0.20); Immature Granulocytes % (auto) 1.6 %; Lymphocytes # (auto) 2.19 K/uL (1.20-3.40); Lymphocytes % (auto) 31.1 %; Mean Corpuscular Hemoglobin 32.9 pg (25.0-34.0); Mean Corpuscular Hgb Conc 32.8 g/dL (32.0-36.0); Mean Corpuscular Volume 100.3 fL (80.0-100.0); Mean Platelet Volume 9.2 fL (9.4-12.4); Monocytes # (auto) 0.63 K/uL (0.11-0.59); Monocytes % (auto) 8.9 %; Neutrophils % (auto) 55.4 %; Platelet Count 236 K/uL (130-400); RDW Coefficient of Variation 16.1 % (11.5-14.5); RDW Standard Deviation 59.1 fL (36.4-46.3); White Blood Count 7.04 K/ul (4.8-10.8)
[2023-12-14 09:04] LABS: Albumin Globulin Ratio 0.7 (0.9-2); Albumin Level 2.5 gm/dl (3.4-5.0); BUN Creatinine Ratio 21.7 (10-20); Bilirubin,Total 0.5 mg/dl (0.2-1.0); Calcium 7.8 mg/dl (8.6-10.3); Est GFR (African American) 115.5 ml/min; Est GFR (Non-African American) 99.6 ml/min; Globulin 3.7 gm/dl (2.5-4.0); Potassium 3.7 mmol/L (3.5-5.1); Total Protein 6.2 gm/dl (6.0-8.3)
--- NOTE | 2023-12-14 09:55 | XRay Report ---
XR KUB/Abdomen 1 view CLINICAL HISTORY: Abdomen distension, rule out ileus/SBO TECHNIQUE: 1 view of the abdomen was obtained. Comparison: Comparison is made to abdomen radiograph 11/30/2023 FINDINGS: Lung bases are unremarkable. Degenerative changes are seen in the visualized skeleton. Multiple gas-d istended loops of large bowel are seen including a prominent sigmoid colonic loop. No small bowel dil ation is seen. IMPRESSION: Multiple gas-distended loops of large bowel. No small bowel obstruction. ACT 112: Negative or not required by law. Electronically signed by: Umberto Johns M.D. 12/14/2023 9:53 AM
[2023-12-14] MEDS: MAGNESIUM HYDROXIDE SUSP 30 ML UDC PO SCH (10:02)
--- NOTE | 2023-12-14 11:01 | Hospitalist Progress Note ---
Date of Service December 14, 2023 Assessment & Plan (1) Fall: (2) Closed T8 spinal fracture: (3) Nasal bone fracture: (4) Supratherapeutic INR: (5) Seizure disorder: (6) Current long-term use of 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 medication with history of deep venous thrombosis (DVT): (7) T2DM (type 2 diabetes mellitus): (8) HLD (hyperlipidemia): (9) Lymphedema: Plan 63yo M with a PMH of DM II, dyslipidemia, venous insufficiency, history of liver failure, BPH, DVT in 2011 on coumadin, venous insufficiency, history of generalized convulsive epilepsy, history of a solitary kidney and other medical problems listed below who presents from home after a fall. Patient was found to have closed T8 spinal fracture for which Ortho spine was consulted on 11/23; recommended mobilization with physical therapy, not an area of spine amenable to bracing. No bending/lifting or twisting, good body me chanics and posture. He also had nasal bone fracture for which [facility] was consulted; no indication for surgery. Follow-up with [facility] as outpatient. Patient had a code purple 11/25 AM, was hypoxic/altered/vomiting --> intubated 11/25 and transferred to ICU. CT head with no acute finding. CT abdomen pelvis with findings suggestive of SBO and lower lung consolidation suggestive of pneumonia or aspiration pneumonitis. CT chest suggestive of extensive bilateral lower lobe consolidation, pneumonia versus aspiration pneumonitis. BAL Cx positive of K. pneumoniae; sensitive to ceftriaxone Patient was extubated on 11/28; vasopressors were weaned off. Sedation was weaned off to on 11/29 Patient transferred out of the ICU on 11/30 Video swallow evaluation was done on 12/02; patient was started on a diet On evening of 12/02patient complaining of severe abdominal pain. CT abdomen/pelvis showed hematomas on left psoas muscle and left quadratus lumborum muscle. Per prior attending - Discussion was done with on-call surgeon; recommended supportive care; will need IR guided drainage if patient develops abscess in the region. Patient was transfused 2 unit of blood; bolus of IV fluids given On the morning of 12/03; patient was delirious; tachypneic and not directable. He was on 15 L of oxygen by nonrebreather. Stat chest x-ray showed pulmonary edema . Patient was given 1 dose of IV Lasix. He was transferred back to ICU. Weaned off of pressors and precedex and DG'd back to PCU on 12/05. on 12/12/2023venous duplex was obtained as patient complained of bilateral lower extremity pain. Found to have showed Acute DVT of right common femoral vein Patient was off therapeutic anticoagulation due to retroperitoneal hematoma Duplex from ; DVT of right femoral vein Started on therapeutic Lovenox. Continue to monitor CBC; hemoglobin stable around 9-10 Vascular surgery was consulted for possible IVC placement; recommended anticoagulation for the time being. If patient has rebleeding; they will consider IVC filter placement. Retroperitoneal hematoma on 12/02 patient complaining of severe abdominal pain. 12/02 CT abdomen/pelvis showed hematomas on left psoas muscle and left quadratus lumborum muscle. 12/05 CTAP: stable hematoma. Anasarca. Discussion was done with on-call surgeon on 12/02; recommended supportive care; will need IR guided drainage if patient develops abscess in the region. Was given 2 units of blood. Monitor CBC. Transfusion as needed. Small bowel obstructionresolved Earlier during the hospitalization; patient had developed ileus with small bowel obstruction. CT abdomen pelvis from 12/02no suggestion of bowel obstruction/inflammation On lactulose KUB obtained on December 14, 2023multiple gas-distended loops of large bowel. No small bowel obstruction. Continue bowel regimen. Started on clear liquid diet Septic shock Acute hypoxic respiratory failure Possible aspiration pneumonia Acute on chronic diastolic heart failure BAL Cx positive of K. pneumoniae; sensitive to ceftriaxone 12/03 chest x-ray - pulmonary edema and bilateral basal lobe consolidation Finishing 7 days of cefepime and doxycyline. Patient had previously received Zosyn and ceftriaxone IV Lasix as needed if permissible w/ BP w/ prn kcl supplementation per nephro recs 12/07. Altered mental status(delirium OR metabolic encephalopathy) likely secondary to underlying infectious process/pain. On lactulose for possible hepatic encephalopathy. currently on hold due to diarreha Mentation improved. Continue antiseizure medication Possible APD: pt complained of abd pain on 12/04-12/06, CTAP has been normal. SBO has been resolved. improvement in abd pain w/ PPI and simethicone. will follow. continue PPI. Acute kidney injury Likely secondary to sepsis/cardiorenal syndrome Creatinine up trended from 0.67-1.83 on 12/03; currently creatinine has improved. Urine output improving Continue support hemodynamics; continue antibiotics Nephrology on board; recommends supportive care. Mechanical Fall Closed T8 spinal fracture Lumbar spine CT with oblique fracture through the anterior body of T8 which extends through the inferior endplate and likely involves the T8-T9 disc space. This fracture may be unstable. Mild prevertebral edema/hemorrhage is seen at the T8 level [facility] evaluated on 11/23-mobilization with physical therapy, not an area of spine amenable to bracing. No bending/lifting or twisting, good body mechanics and posture Pain control with Tylenol [id number], c and Dilaudid. Fall precautions PT OT reordered Nasal bone fractures No acute bleeding Continue ice, pain control Discussed with [facility] 11/24 no indication for surgery for now, follow-up with [facility] as an outpatient. 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 :On Lovenox Uncontrolled DM II HbA1c 10.5 in Aug , A1c better this admission Hold home agents Basal/bolus insulin per protocol while in-patient BSG AC HS Seizure disorder Continue home Depakote, Dilantin and topiramate BLE neuropathy Gabapentin dose recently changed to 200mg TID BPH On Flomax and Proscar Bladder scan PRN Chronic lymphedema Chronic Venous insufficiency No open wounds Monitor for volume overload Gout Continue allopurinol Solitary kidney As per records DVT Ppx:lovenox Code status: FULL PCP: Cruz Dispo: Rehab in next few days Time spent evaluating patient, direct bedside care, chart review, placing orders, interpretation of diagnostic studies, discussion with consultants, patient, and family members, as well as other required patient management activities is 50 minutes Please note the above document was generated using voice recognition software. It may contain grammatical, syntax or spelling errors. Any formal questions or concerns about the content, text or information contained within the body of this dictation should be directly addressed to the provider for clarification Admission and Anticipated Discharge Date Admission Date: November 23, 2023 Subjective Patient seen and examined at bedside. He is comfortable lying in the bed; not in distress He is alert oriented x 3 Abdomen appears to be slightly distended; denies pain or discomfort. KUB ruled out obstruction/SBO Review of Systems Review of Systems: All systems reviewed & are unremarkable except as noted in Subjective Physical Exam Physical Exam: GENERAL: Comfortable, not in distress. Alert oriented x2 HEENT: No pallor, no icterus. Pupils equal, round and reactive to light. Oral mucosa dry. NECK: No JVD, no neck masses. nasal bridge swelling. HEART: S1 and S2 heard. Regular rate and rhythm. No murmur, no gallop. RESPIRATORY SYSTEM: Decreased breath sound at bases; ABDOMEN: Abdomen slightly distended.Bowel sound present. Nontender. CENTRAL NERVOUS SYSTEM: Grossly moves all extremities. EXTREMITIES: chronic lymphedema, Results & Data Results & Data Vital Signs (Past 12 Hours) Vital Signs Temp Pulse Pulse Resp BP Pulse Ox O2 Del Method 12/14/23 08:00 88 12/14/23 07:20 37.3 C 91 H 22 116/79 97 Nasal Cannula 12/14/23 03:55 37.1 C 86 17 124/66 98 Nasal Cannula 12/13/23 23:42 36.9 C 91 H 17 135/71 92 Room Air 12/13/23 23:38 90 O2 Flow Rate 12/14/23 08:00 12/14/23 07:20 3 12/14/23 03:55 2 12/13/23 23:42 12/13/23 23:38
[2023-12-14] MEDS: ALBUT/IPRATROP 3MG/0.5MG NEB 3 ML VIAL NEB SCH (19:41)
[2023-12-14] MEDS: SODIUM CHLOR 7% 4 ML NEB NEB SCH (19:41)
[2023-12-15 07:36] LABS: Basophils # (auto) 0.04 K/uL (0.00-0.20); Basophils % (auto) 0.7 %; Eosinophils # (auto) 0.08 K/uL (0.00-0.50); Eosinophils % (auto) 1.4 %; Hematocrit (blood only) 33.7 % (42.0-52.0); Hemoglobin 11.2 g/dl (14.0-18.0); Immature Granulocytes # (auto) 0.09 K/uL (0.01-0.20); Immature Granulocytes % (auto) 1.6 %; Lymphocytes # (auto) 1.81 K/uL (1.20-3.40); Lymphocytes % (auto) 32.3 %; Mean Corpuscular Hemoglobin 33.3 pg (25.0-34.0); Mean Corpuscular Hgb Conc 33.2 g/dL (32.0-36.0); Mean Corpuscular Volume 100.3 fL (80.0-100.0); Monocytes # (auto) 0.44 K/uL (0.11-0.59); Monocytes % (auto) 7.8 %; Neutrophils # (auto) 3.15 K/uL (1.40-6.50); Neutrophils % (auto) 56.2 %; Platelet Count 229 K/uL (130-400); RDW Coefficient of Variation 16.1 % (11.5-14.5); RDW Standard Deviation 58.3 fL (36.4-46.3); Red Blood Count 3.36 M/uL (4.70-6.10); White Blood Count 5.61 K/ul (4.8-10.8)
[2023-12-15 08:09] LABS: Calcium 7.9 mg/dl (8.6-10.3); Creatinine Clr Calc Pharmacy 153.6 ml/min; Est GFR (African American) 118.3 ml/min; Est GFR (Non-African American) 102.1 ml/min; Potassium 3.8 mmol/L (3.5-5.1)
--- NOTE | 2023-12-15 10:08 | Hospitalist Progress Note ---
Date of Service December 15, 2023 Assessment & Plan (1) Fall: (2) Closed T8 spinal fracture: (3) Nasal bone fracture: (4) Supratherapeutic INR: (5) Seizure disorder: (6) Current long-term use of 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 medication with history of deep venous thrombosis (DVT): (7) T2DM (type 2 diabetes mellitus): (8) HLD (hyperlipidemia): (9) Lymphedema: Plan 63yo M with a PMH of DM II, dyslipidemia, venous insufficiency, history of liver failure, BPH, DVT in 2011 on coumadin, venous insufficiency, history of generalized convulsive epilepsy, history of a solitary kidney and other medical problems listed below who presents from home after a fall. Patient was found to have closed T8 spinal fracture for which Ortho spine was consulted on 11/23; recommended mobilization with physical therapy, not an area of spine amenable to bracing. No bending/lifting or twisting, good body me chanics and posture. He also had nasal bone fracture for which [facility] was consulted; no indication for surgery. Follow-up with [facility] as outpatient. Patient had a code purple 11/25 AM, was hypoxic/altered/vomiting --> intubated 11/25 and transferred to ICU. CT head with no acute finding. CT abdomen pelvis with findings suggestive of SBO and lower lung consolidation suggestive of pneumonia or aspiration pneumonitis. CT chest suggestive of extensive bilateral lower lobe consolidation, pneumonia versus aspiration pneumonitis. BAL Cx positive of K. pneumoniae; sensitive to ceftriaxone Patient was extubated on 11/28; vasopressors were weaned off. Sedation was weaned off to on 11/29 Patient transferred out of the ICU on 11/30 Video swallow evaluation was done on 12/02; patient was started on a diet On evening of 12/02patient complaining of severe abdominal pain. CT abdomen/pelvis showed hematomas on left psoas muscle and left quadratus lumborum muscle. Per prior attending - Discussion was done with on-call surgeon; recommended supportive care; will need IR guided drainage if patient develops abscess in the region. Patient was transfused 2 unit of blood; bolus of IV fluids given On the morning of 12/03; patient was delirious; tachypneic and not directable. He was on 15 L of oxygen by nonrebreather. Stat chest x-ray showed pulmonary edema . Patient was given 1 dose of IV Lasix. He was transferred back to ICU. Weaned off of pressors and precedex and DG'd back to PCU on 12/05. on 12/12/2023venous duplex was obtained as patient complained of bilateral lower extremity pain. Found to have DVT of right femoral vein Acute DVT of right common femoral vein Patient was off therapeutic anticoagulation due to retroperitoneal hematoma Duplex from ; DVT of right femoral vein Continue on therapeutic Lovenox. Continue to monitor CBC; hemoglobin stable around 9-10 Vascular surgery was consulted for possible IVC placement; recommended anticoagulation for the time being. If patient has rebleeding; they will consider IVC filter placement. Retroperitoneal hematoma on 12/02 patient complaining of severe abdominal pain. 12/02 CT abdomen/pelvis showed hematomas on left psoas muscle and left quadratus lumborum muscle. 12/05 CTAP: stable hematoma. Anasarca. Discussion was done with on-call surgeon on 12/02; recommended supportive care; will need IR guided drainage if patient develops abscess in the region. Was given 2 units of blood. Monitor CBC. Transfusion as needed. Small bowel obstructionresolved Earlier during the hospitalization; patient had developed ileus with small bowel obstruction. CT abdomen pelvis from 12/02no suggestion of bowel obstruction/inflammation On lactulose KUB obtained on December 14, 2023multiple gas-distended loops of large bowel. No small bowel obstruction. Continue bowel regimen. Abdomen distention improved with laxatives. Continue monitor Septic shock Acute hypoxic respiratory failure Possible aspiration pneumonia Acute on chronic diastolic heart failure BAL Cx positive of K. pneumoniae; sensitive to ceftriaxone 12/03 chest x-ray - pulmonary edema and bilateral basal lobe consolidation Finishing 7 days of cefepime and doxycyline. Patient had previously received Zosyn and ceftriaxone IV Lasix as needed if permissible w/ BP w/ prn kcl supplementation per nephro recs 12/07. Altered mental status(delirium OR metabolic encephalopathy) likely secondary to underlying infectious process/pain. On lactulose for possible hepatic encephalopathy. currently on hold due to diarreha Mentation improved. Continue antiseizure medication Possible APD: pt complained of abd pain on 12/04-12/06, CTAP has been normal. SBO has been resolved. improvement in abd pain w/ PPI and simethicone. will follow. continue PPI. Acute kidney injury Likely secondary to sepsis/cardiorenal syndrome Creatinine up trended from 0.67-1.83 on 12/03; currently creatinine has improved. Urine output improving Continue support hemodynamics; continue antibiotics Nephrology on board; recommends supportive care. Mechanical Fall Closed T8 spinal fracture Lumbar spine CT with oblique fracture through the anterior body of T8 which extends through the inferior endplate and likely involves the T8-T9 disc space. This fracture may be unstable. Mild prevertebral edema/hemorrhage is seen at the T8 level [facility] evaluated on 11/23-mobilization with physical therapy, not an area of spine amenable to bracing. No bending/lifting or twisting, good body mechanics and posture Pain control with Tylenol [id number], c and Dilaudid. Fall precautions PT OT reordered Nasal bone fractures No acute bleeding Continue ice, pain control Discussed with [facility] 11/24 no indication for surgery for now, follow-up with [facility] as an outpatient. 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 :On Lovenox Uncontrolled DM II HbA1c 10.5 in Aug ,HbA1c of 7.5% this admission Hold home agents Basal/bolus insulin per protocol while in-patient BSG AC HS Seizure disorder Continue home Depakote, Dilantin and topiramate BLE neuropathy Gabapentin dose recently changed to 200mg TID BPH On Flomax and Proscar Bladder scan PRN Chronic lymphedema Chronic Venous insufficiency No open wounds Monitor for volume overload Gout Continue allopurinol Solitary kidney As per records DVT Ppx:lovenox Code status: FULL PCP: Cruz Dispo: Rehab in next few days Time spent evaluating patient, direct bedside care, chart review, placing orders, interpretation of diagnostic studies, discussion with consultants, patient, and family members, as well as other required patient management activities is 50 minutes Please note the above document was generated using voice recognition software. It may contain grammatical, syntax or spelling errors. Any formal questions or concerns about the content, text or information contained within the body of this dictation should be directly addressed to the provider for clarification Admission and Anticipated Discharge Date Admission Date: November 23, 2023 Subjective Patient seen and examined at bedside. He is comfortably sitting up on the bed; not in distress. Denies any abdominal pain or discomfort. Vitals are stable Review of Systems Review of Systems: All systems reviewed & are unremarkable except as noted in Subjective Physical Exam Physical Exam: GENERAL: Comfortable, not in distress. Alert oriented x3 HEENT: No pallor, no icterus. Pupils equal, round and reactive to light. Oral mucosa dry. NECK: No JVD, no neck masses. nasal bridge swelling. HEART: S1 and S2 heard. Regular rate and rhythm. No murmur, no gallop. RESPIRATORY SYSTEM: Decreased breath sound at bases; ABDOMEN: Abdomen soft, nontender CENTRAL NERVOUS SYSTEM: Grossly moves all extremities. EXTREMITIES: chronic lymphedema, Results & Data Results & Data Vital Signs (Past 12 Hours) Vital Signs Temp Pulse Resp BP Pulse Ox O2 Del Method O2 Flow Rate 12/15/23 08:39 36.9 C 101 H 27 H 134/62 95 Nasal Cannula 12/15/23 07:30 95 H 20 92 Room Air 12/15/23 03:05 36.9 C 108 H 19 164/60 H 94 Room Air 12/15/23 01:13 87 L Nasal Cannula 2
[2023-12-16] MEDS: HYDROmorphone INJ 0.5 MG/0.5 ML SYR IV PRN (01:31)
[2023-12-16 06:01] LABS: Basophils # (auto) 0.06 K/uL (0.00-0.20); Eosinophils # (auto) 0.16 K/uL (0.00-0.50); Eosinophils % (auto) 2.5 %; Hematocrit (blood only) 29.9 % (42.0-52.0); Hemoglobin 9.8 g/dl (14.0-18.0); Immature Granulocytes # (auto) 0.08 K/uL (0.01-0.20); Immature Granulocytes % (auto) 1.3 %; Lymphocytes # (auto) 2.41 K/uL (1.20-3.40); Lymphocytes % (auto) 38.4 %; Mean Corpuscular Hgb Conc 32.8 g/dL (32.0-36.0); Mean Corpuscular Volume 100.7 fL (80.0-100.0); Mean Platelet Volume 9.3 fL (9.4-12.4); Monocytes # (auto) 0.48 K/uL (0.11-0.59); Monocytes % (auto) 7.6 %; Neutrophils # (auto) 3.09 K/uL (1.40-6.50); Neutrophils % (auto) 49.2 %; Platelet Count 232 K/uL (130-400); RDW Coefficient of Variation 15.9 % (11.5-14.5); RDW Standard Deviation 58.7 fL (36.4-46.3); Red Blood Count 2.97 M/uL (4.70-6.10); White Blood Count 6.28 K/ul (4.8-10.8)
[2023-12-16 06:15] LABS: BUN Creatinine Ratio 18.8 (10-20); Creatinine Clr Calc Pharmacy 144.7 ml/min; Est GFR (African American) 115.5 ml/min; Est GFR (Non-African American) 99.6 ml/min; Potassium 4.2 mmol/L (3.5-5.1)
--- NOTE | 2023-12-16 11:56 | Pharmacy Report ---
Pharmacy Glycemic Short Note 2 - Date of Service December 16, 2023 - Glycemic Short BSG Results (Last 24 hours): 12/15/23 12/15/23 12/16/23 16:29 20:31 05:37 Glucose 111 H POC Glucose 101 H 132 H 12/16/23 12/16/23 07:06 11:08 Glucose POC Glucose 113 H 135 H OUTPATIENT ANTIDIABETIC REGIMEN: * Glipizide 10 mg PO BIDM * Tradjenta 5 mg PO daily * HbA1c: 7.5% (11/24/23) ASSESSMENT: 12/15: * BSGs largely within goal the last 48h: [phone]/dL since yesterday. Fasting BSG within goal range. Received 16 units of basal and 8 units of bolus insulin yesterday. * Tolerating diet, other stressors stable. * Will continue current Novolog/Lantus parameters. 12/12 * Fasting 86 mg/dL with reduced lantus dose yesterday- will continue for today as intake expected to increase, reduce tomorrow if still below goal * Prandial BSGs have been within range, continue current novolog parameters 12/11 * Glycemic control improved following dc of IV heparin infusion (mixed in D5W) * Fasting BSG elevated yet acceptable this am, FBS 178. Will titrated down basal dose however as PO intake has been limited over last 24 hrs and dextrose IV has stopped. * Will lessen correctional insulin doses now that continuous IV dextrose has stopped 12/10 * BSGs had been well controlled until heparin IV infusion (in D5W) was started yesterday evening * Fasting BSG now elevated, again likely due to IV dextrose provision. Will make small adjustment to Lantus, however would not increase greatly as pt would be prone to hypoglycemia if IV dextrose dc'd. * Will increase correctional insulin doses to help compensate for IV dextrose 12/08 * Glycemic control acceptable over the last 24 hrs * 34 units SQ insulin given over last 24 hrs while tolerating a diet * Fasting BSG at goal with 20 units of basal insulin on board - will continue * Novolog CF and CR have performed well - no change PLAN FOR INPATIENT GLYCEMIC CONTROL: * Hold outpatient oral diabetes medications (metformin) * Basal insulin * Lantus to 8 units BID * Bolus insulin * NovoLog per scale ACHS or Q6hrs while NPO * Goal Range: Low 110 mg/dL - High 140 mg/dL * Correction Factor: 20 mg/dL/unit * Nutritional / Prandial insulin per carb ratio of 1 unit per 7 grams CHO consumed
[2023-12-16] MEDS ORDERED: ALBUT/IPRATROP 3MG/0.5MG NEB 3 ML VIAL NEB PRN (12:26)
[2023-12-16] MEDS ORDERED: SODIUM CHLOR 7% 4 ML NEB NEB PRN (12:26)
--- NOTE | 2023-12-16 13:18 | Hospitalist Progress Note ---
Date of Service December 16, 2023 Assessment & Plan (1) Fall: (2) Closed T8 spinal fracture: (3) Nasal bone fracture: (4) Supratherapeutic INR: (5) Seizure disorder: (6) Current long-term use of 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 medication with history of deep venous thrombosis (DVT): (7) T2DM (type 2 diabetes mellitus): (8) HLD (hyperlipidemia): (9) Lymphedema: Plan 63yo M with a PMH of DM II, dyslipidemia, venous insufficiency, history of liver failure, BPH, DVT in 2011 on coumadin, venous insufficiency, history of generalized convulsive epilepsy, history of a solitary kidney and other medical problems listed below who presents from home after a fall. Patient was found to have closed T8 spinal fracture for which Orth[facility] spine was consulted on 11/23; recommended mobilization with physical therapy, not an area of spine amenable to bracing. No bending/lifting or twisting, good body me chanics and posture. He also had nasal bone fracture for which [facility] was consulted; no indication for surgery. Follow-up with [facility] as outpatient. Patient had a code purple 11/25 AM, was hypoxic/altered/vomiting --> intubated 11/25 and transferred to ICU. CT head with no acute finding. CT abdomen pelvis with findings suggestive of SBO and lower lung consolidation suggestive of pneumonia or aspiration pneumonitis. CT chest suggestive of extensive bilateral lower lobe consolidation, pneumonia versus aspiration pneumonitis. BAL Cx positive of K. pneumoniae; sensitive to ceftriaxone Patient was extubated on 11/28; vasopressors were weaned off. Sedation was weaned off to on 11/29 Patient transferred out of the ICU on 11/30 Video swallow evaluation was done on 12/02; patient was started on a diet On evening of 12/02patient complaining of severe abdominal pain. CT abdomen/pelvis showed hematomas on left psoas muscle and left quadratus lumborum muscle. Per prior attending - Discussion was done with on-call surgeon; recommended supportive care; will need IR guided drainage if patient develops abscess in the region. Patient was transfused 2 unit of blood; bolus of IV fluids given On the morning of 12/03; patient was delirious; tachypneic and not directable. He was on 15 L of oxygen by nonrebreather. Stat chest x-ray showed pulmonary edema . Patient was given 1 dose of IV Lasix. He was transferred back to ICU. Weaned off of pressors and precedex and DG'd back to PCU on 12/05. on 12/12/2023venous duplex was obtained as patient complained of bilateral lower extremity pain. Found to have DVT of right femoral vein Acute DVT of right common femoral vein Patient was off therapeutic anticoagulation due to retroperitoneal hematoma Duplex from ; DVT of right femoral vein Continue on therapeutic Lovenox. Continue to monitor CBC; hemoglobin stable around 9-10 Vascular surgery was consulted for possible IVC placement; recommended anticoagulation for the time being. If patient has rebleeding; they will consider IVC filter placement. Started on Coumadin on December 16, 2023 Plan to bridge with therapeutic Lovenox for next 5 days. Retroperitoneal hematoma on 12/02 patient complaining of severe abdominal pain. 12/02 CT abdomen/pelvis showed hematomas on left psoas muscle and left quadratus lumborum muscle. 12/05 CTAP: stable hematoma. Anasarca. Discussion was done with on-call surgeon on 12/02; recommended supportive care; will need IR guided drainage if patient develops abscess in the region. Was given 2 units of blood. Monitor CBC. Transfusion as needed. Small bowel obstructionresolved Earlier during the hospitalization; patient had developed ileus with small bowel obstruction. CT abdomen pelvis from 12/02no suggestion of bowel obstruction/inflammation On lactulose KUB obtained on December 14, 2023multiple gas-distended loops of large bowel. No small bowel obstruction. Continue bowel regimen. Abdomen distention improved with laxatives. Continue monitor Septic shock Acute hypoxic respiratory failure Possible aspiration pneumonia Acute on chronic diastolic heart failure BAL Cx positive of K. pneumoniae; sensitive to ceftriaxone 12/03 chest x-ray - pulmonary edema and bilateral basal lobe consolidation Finishing 7 days of cefepime and doxycyline. Patient had previously received Zosyn and ceftriaxone IV Lasix as needed if permissible w/ BP w/ prn kcl supplementation per nephro recs 12/07. Altered mental status(delirium OR metabolic encephalopathy) likely secondary to underlying infectious process/pain. On lactulose for possible hepatic encephalopathy. currently on hold due to diarreha Mentation improved. Continue antiseizure medication Possible APD: pt complained of abd pain on 12/04-12/06, CTAP has been normal. SBO has been resolved. improvement in abd pain w/ PPI and simethicone. will follow. continue PPI. Acute kidney injury Likely secondary to sepsis/cardiorenal syndrome Creatinine up trended from 0.67-1.83 on 12/03; currently creatinine has improved. Urine output improving Continue support hemodynamics; continue antibiotics Nephrology on board; recommends supportive care. On Lasix 20 mg once a day Mechanical Fall Closed T8 spinal fracture Lumbar spine CT with oblique fracture through the anterior body of T8 which extends through the inferior endplate and likely involves the T8-T9 disc space. This fracture may be unstable. Mild prevertebral edema/hemorrhage is seen at the T8 level [facility] evaluated on 11/23-mobilization with physical therapy, not an area of spine amenable to bracing. No bending/lifting or twisting, good body mechanics and posture Pain control with Tylenol [id number], c and Dilaudid. Fall precautions PT OT reordered Nasal bone fractures No acute bleeding Continue ice, pain control Discussed with [facility] 11/24 no indication for surgery for now, follow-up with [facility] as an outpatient. 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 :On Lovenox Uncontrolled DM II HbA1c 10.5 in Aug ,HbA1c of 7.5% this admission Hold home agents Basal/bolus insulin per protocol while in-patient BSG AC HS Seizure disorder Continue home Depakote, Dilantin and topiramate BLE neuropathy Gabapentin dose recently changed to 200mg TID BPH On Flomax and Proscar Bladder scan PRN Chronic lymphedema Chronic Venous insufficiency No open wounds Monitor for volume overload Gout Continue allopurinol Solitary kidney As per records DVT Ppx:lovenox/coumadin Code status: FULL PCP: Cruz Dispo: Rehab in next few days Time spent evaluating patient, direct bedside care, chart review, placing orders, interpretation of diagnostic studies, discussion with consultants, patient, and family members, as well as other required patient management activities is 50 minutes Please note the above document was generated using voice recognition software. It may contain grammatical, syntax or spelling errors. Any formal questions or concerns about the content, text or information contained within the body of this dictation should be directly addressed to the provider for clarification Admission and Anticipated Discharge Date Admission Date: November 23, 2023 Subjective Patient seen and examined at bedside He is sitting up on the bed; not in distress. No significant events overnight Review of Systems Review of Systems: All systems reviewed & are unremarkable except as noted in Subjective Physical Exam Physical Exam: GENERAL: Comfortable, not in distress. Alert oriented x3 HEENT: No pallor, no icterus. Pupils equal, round and reactive to light. Oral mucosa dry. NECK: No JVD, no neck masses. nasal bridge swelling. HEART: S1 and S2 heard. Regular rate and rhythm. No murmur, no gallop. RESPIRATORY SYSTEM: Decreased breath sound at bases; ABDOMEN: Abdomen soft, nontender CENTRAL NERVOUS SYSTEM: Grossly moves all extremities. EXTREMITIES: chronic lymphedema, Results & Data Results & Data Vital Signs (Past 12 Hours) Vital Signs Temp Pulse Resp BP Pulse Ox O2 Del Method 12/16/23 11:10 36.6 C 89 20 120/64 93 Room Air 12/16/23 09:00 Room Air 12/16/23 07:21 88 16 93 Room Air 12/16/23 07:17 36.8 C 87 19 123/59 L 92 Nasal Cannula
[2023-12-16] MEDS: ATORVASTATIN 40 MG TAB PO SCH (14:22)
[2023-12-16] MEDS: allopurinoL 300 MG TAB PO SCH (14:22)
[2023-12-16] MEDS: WARFARIN SOD 5 MG TAB PO SCH (16:13)
[2023-12-16] MEDS: TAMSULOSIN HCL 0.4 MG CAP PO SCH (20:02)
[2023-12-16] MEDS: PHENYTOIN SODIUM ER 100 MG CAP PO SCH (20:02)
[2023-12-17] MEDS: oxyCODONE HCL IR 5 MG TAB (IMMEDIATE RELEASE) PO STA (02:10)
[2023-12-17 08:20] LABS: INR 1.1 (0.9-1.1); Prothrombin Time 11.4 Seconds (9.0-12.0)
[2023-12-17 09:04] LABS: Basophils # (auto) 0.06 K/uL (0.00-0.20); Basophils % (auto) 0.9 %; Eosinophils # (auto) 0.12 K/uL (0.00-0.50); Eosinophils % (auto) 1.8 %; Hematocrit (blood only) 35.9 % (42.0-52.0); Hemoglobin 11.8 g/dl (14.0-18.0); Immature Granulocytes # (auto) 0.07 K/uL (0.01-0.20); Immature Granulocytes % (auto) 1.1 %; Lymphocytes # (auto) 2.01 K/uL (1.20-3.40); Lymphocytes % (auto) 30.9 %; Mean Corpuscular Hemoglobin 33.1 pg (25.0-34.0); Mean Corpuscular Hgb Conc 32.9 g/dL (32.0-36.0); Mean Corpuscular Volume 100.8 fL (80.0-100.0); Mean Platelet Volume 9.5 fL (9.4-12.4); Monocytes # (auto) 0.46 K/uL (0.11-0.59); Monocytes % (auto) 7.1 %; Neutrophils # (auto) 3.79 K/uL (1.40-6.50); Neutrophils % (auto) 58.2 %; Platelet Count 228 K/uL (130-400); RDW Coefficient of Variation 16.3 % (11.5-14.5); RDW Standard Deviation 59.7 fL (36.4-46.3); Red Blood Count 3.56 M/uL (4.70-6.10); White Blood Count 6.51 K/ul (4.8-10.8)
[2023-12-17] MEDS: oxyCODONE HCL IR 5 MG TAB (IMMEDIATE RELEASE) PO PRN (09:25)
[2023-12-17] MEDS: FUROSEMIDE 20 MG TAB PO SCH (09:29)
[2023-12-17 09:34] LABS: Calcium 8.3 mg/dl (8.6-10.3); Potassium 3.9 mmol/L (3.5-5.1)
[2023-12-17 09:40] LABS: BUN Creatinine Ratio 22.6 (10-20); Creatinine Clr Calc Pharmacy 161.1 ml/min; Est GFR (African American) 120.7 ml/min; Est GFR (Non-African American) 104.1 ml/min
--- NOTE | 2023-12-17 12:53 | Hospitalist Progress Note ---
Date of Service December 17, 2023 Assessment & Plan (1) Fall: (2) Closed T8 spinal fracture: (3) Nasal bone fracture: (4) Supratherapeutic INR: (5) Seizure disorder: (6) Current long-term use of 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 medication with history of deep venous thrombosis (DVT): (7) T2DM (type 2 diabetes mellitus): (8) HLD (hyperlipidemia): (9) Lymphedema: Plan 63yo M with a PMH of DM II, dyslipidemia, venous insufficiency, history of liver failure, BPH, DVT in 2011 on coumadin, venous insufficiency, history of generalized convulsive epilepsy, history of a solitary kidney and other medical problems listed below who presents from home after a fall. Patient was found to have closed T8 spinal fracture for which Ortho spine was consulted on 11/23; recommended mobilization with physical therapy, not an area of spine amenable to bracing. No bending/lifting or twisting, good body me chanics and posture. He also had nasal bone fracture for which [facility] was consulted; no indication for surgery. Follow-up with [facility] as outpatient. Patient had a code purple 11/25 AM, was hypoxic/altered/vomiting --> intubated 11/25 and transferred to ICU. CT head with no acute finding. CT abdomen pelvis with findings suggestive of SBO and lower lung consolidation suggestive of pneumonia or aspiration pneumonitis. CT chest suggestive of extensive bilateral lower lobe consolidation, pneumonia versus aspiration pneumonitis. BAL Cx positive of K. pneumoniae; sensitive to ceftriaxone Patient was extubated on 11/28; vasopressors were weaned off. Sedation was weaned off to on 11/29 Patient transferred out of the ICU on 11/30 Video swallow evaluation was done on 12/02; patient was started on a diet On evening of 12/02patient complaining of severe abdominal pain. CT abdomen/pelvis showed hematomas on left psoas muscle and left quadratus lumborum muscle. Per prior attending - Discussion was done with on-call surgeon; recommended supportive care; will need IR guided drainage if patient develops abscess in the region. Patient was transfused 2 unit of blood; bolus of IV fluids given On the morning of 12/03; patient was delirious; tachypneic and not directable. He was on 15 L of oxygen by nonrebreather. Stat chest x-ray showed pulmonary edema . Patient was given 1 dose of IV Lasix. He was transferred back to ICU. Weaned off of pressors and precedex and DG'd back to PCU on 12/05. on 12/12/2023venous duplex was obtained as patient complained of bilateral lower extremity pain. Found to have DVT of right femoral vein Patient has been tolerating Lovenox. Started on Coumadin bridge on December 16, 2023. Patient is deconditioned from prolonged hospitalization; requires max assist from 3-4 people. Referred to [facility] but rejected; plan to discharge to [facility] Acute DVT of right common femoral vein Patient was off therapeutic anticoagulation due to retroperitoneal hematoma Duplex from ; DVT of right femoral vein Continue on therapeutic Lovenox. Continue to monitor CBC; hemoglobin stable around 9-10 Vascular surgery was consulted for possible IVC placement; recommended anticoagulation for the time being. If patient has rebleeding; they will consider IVC filter placement. Started on Coumadin on December 16, 2023 Plan to bridge with therapeutic Lovenox for next 5 days. Retroperitoneal hematoma on 12/02 patient complaining of severe abdominal pain. 12/02 CT abdomen/pelvis showed hematomas on left psoas muscle and left quadratus lumborum muscle. 12/05 CTAP: stable hematoma. Anasarca. Discussion was done with on-call surgeon on 12/02; recommended supportive care; will need IR guided drainage if patient develops abscess in the region. Was given 2 units of blood. Monitor CBC. Transfusion as needed. Small bowel obstructionresolved Earlier during the hospitalization; patient had developed ileus with small bowel obstruction. CT abdomen pelvis from 12/02no suggestion of bowel obstruction/inflammation On lactulose KUB obtained on December 14, 2023multiple gas-distended loops of large bowel. No small bowel obstruction. Continue bowel regimen. Abdomen distention improved with laxatives. Continue monitor Septic shock Acute hypoxic respiratory failure Possible aspiration pneumonia Acute on chronic diastolic heart failure BAL Cx positive of K. pneumoniae; sensitive to ceftriaxone 12/03 chest x-ray - pulmonary edema and bilateral basal lobe consolidation Finishing 7 days of cefepime and doxycyline. Patient had previously received Zosyn and ceftriaxone IV Lasix as needed if permissible w/ BP w/ prn kcl supplementation per nephro recs 12/07. Altered mental status(delirium OR metabolic encephalopathy) likely secondary to underlying infectious process/pain. On lactulose for possible hepatic encephalopathy. currently on hold due to diarreha Mentation improved. Continue antiseizure medication Possible APD: pt complained of abd pain on 12/04-12/06, CTAP has been normal. SBO has been resolved. improvement in abd pain w/ PPI and simethicone. will follow. continue PPI. Acute kidney injury Likely secondary to sepsis/cardiorenal syndrome Creatinine up trended from 0.67-1.83 on 12/03; currently creatinine has improved. Urine output improving Continue support hemodynamics; continue antibiotics Nephrology on board; recommends supportive care. On Lasix 20 mg once a day Mechanical Fall Closed T8 spinal fracture Lumbar spine CT with oblique fracture through the anterior body of T8 which extends through the inferior endplate and likely involves the T8-T9 disc space. This fracture may be unstable. Mild prevertebral edema/hemorrhage is seen at the T8 level [facility] evaluated on 11/23-mobilization with physical therapy, not an area of spine amenable to bracing. No bending/lifting or twisting, good body mechanics and posture Pain control with Tylenol [id number], c and Dilaudid. Fall precautions PT OT reordered Nasal bone fractures No acute bleeding Continue ice, pain control Discussed with [facility] 11/24 no indication for surgery for now, follow-up with [facility] as an outpatient. 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 :On Lovenox Uncontrolled DM II HbA1c 10.5 in Aug ,HbA1c of 7.5% this admission Hold home agents Basal/bolus insulin per protocol while in-patient BSG AC HS Seizure disorder Continue home Depakote, Dilantin and topiramate BLE neuropathy Gabapentin dose recently changed to 200mg TID BPH On Flomax and Proscar Bladder scan PRN Chronic lymphedema Chronic Venous insufficiency No open wounds Monitor for volume overload Gout Continue allopurinol Solitary kidney As per records DVT Ppx:lovenox/coumadin Code status: FULL PCP: Cruz Dispo: Patient referred to [facility] but rejected as she would not be able to tolerate 3 hours of therapy. Possible discharge to SNF in next few days Time spent evaluating patient, direct bedside care, chart review, placing orders, interpretation of diagnostic studies, discussion with consultants, patient, and family members, as well as other required patient management activities is 50 minutes Please note the above document was generated using voice recognition software. It may contain grammatical, syntax or spelling errors. Any formal questions or concerns about the content, text or information contained within the body of this dictation should be directly addressed to the provider for clarification Admission and Anticipated Discharge Date Admission Date: November 23, 2023 Subjective Patient seen and examined at bedside. He is comfortable; reports lower back pain relieved by oral analgesics. Vitals are stable; currently saturating well in room air Review of Systems Review of Systems: All systems reviewed & are unremarkable except as noted in Subjective Physical Exam Physical Exam: GENERAL: Comfortable, not in distress. Alert oriented x3 HEENT: No pallor, no icterus. Pupils equal, round and reactive to light. Oral mucosa dry. NECK: No JVD, no neck masses. nasal bridge swelling. HEART: S1 and S2 heard. Regular rate and rhythm. No murmur, no gallop. RESPIRATORY SYSTEM: Decreased breath sound at bases; ABDOMEN: Abdomen soft, nontender CENTRAL NERVOUS SYSTEM: Grossly moves all extremities. EXTREMITIES: chronic lymphedema, Results & Data Results & Data Vital Signs (Past 12 Hours) Vital Signs Temp Pulse Pulse Resp BP BP Pulse Ox 12/17/23 10:33 36.7 C 105 H 20 150/79 H 93 12/17/23 09:45 12/17/23 08:00 102 H 12/17/23 07:55 36.7 C 105 H 19 145/80 H 92 12/17/23 03:15 36.9 C 104 H 20 148/80 H 90 O2 Del Method 12/17/23 10:33 Room Air 12/17/23 09:45 Room Air 12/17/23 08:00 12/17/23 07:55 Room Air 12/17/23 03:15 Room Air
--- NOTE | 2023-12-18 08:16 | Discharge Summary ---
Discharge Summary Date of Service December 18, 2023 Notes For Next Care Provider Please ensure followup with OMFS for nasal bone fracture Monitor INR and ensure followup with anticoagulation clinic- pt discharged with warfarin and Lovenox bridge Please use a bowel regimen to make sure patient has bowel movement every day Patient has T8 spinal fracture. No bending/lifting or twisting. Good body mechanics and posture. Pain control with Tylenol and oxycodone as needed. Medication Changes From Visit Tylenol 500mg q6h PRN Lovenox 120mg q12h Novolog 4U SC AC Lantus 8U BID Oxycodone 5mg BID PRN Pantoprazole 40mg daily Stop glipizide 10mg BID Change lactulose dose to 45g PO QID KCl dose changed to 20mEq daily Admission HPI Per Admitting Provider This is a 63yo M with a PMH of DM II, dyslipidemia, venous insufficiency, history of liver failure, BPH, DVT in 2011 on coumadin, venous insufficiency, history of generalized convulsive epilepsy, history of a solitary kidney and other medical problems listed below who presents from home after a fall. Patient was recently admitted from 10/03-10/08 for hepatic encephalopathy and was discharged to rehab and has since returned home. Ambulates with a walker at baseline. Sister at bedside has noticed he seems more shaky and weaker than before the last hospitalization. Patient is a poor historian and a portion of history was obtained from sister at bedside. Since his return home, family has been helping him shower and dress due to safety concerns. Was ambulating at his sister's house (where he now resides) in the living room trying to get exercise when his legs "fell out from under me" and he fell forward onto his face, causing a brisk nosebleed. Is on coumadin for history of DVT. Endorsing some mid back pain but also mentioning pain in feet from neuropathy as well as lymphedema as well as chronic neck pain. Denies any recent F/C, CP, SPB, N/V, abd pain, dysuria or diarrhea. Principal Dx & Hospital Course #1 = Principal Diagnosis (1) Fall: (2) Closed T8 spinal fracture: (3) Nasal bone fracture: (4) Supratherapeutic INR: (5) Seizure disorder: (6) Current long-term use of 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 medication with history of deep venous thrombosis (DVT): (7) T2DM (type 2 diabetes mellitus): (8) HLD (hyperlipidemia): (9) Lymphedema: Plan 63yo M with a PMH of DM II, dyslipidemia, venous insufficiency, history of liver failure, BPH, DVT in 2011 on coumadin, venous insufficiency, history of generalized convulsive epilepsy, history of a solitary kidney and other medical problems listed below who presented from home after a fall. Patient was found to have closed T8 spinal fracture for which Ortho spine was consulted on 11/23; recommended mobilization with physical therapy, not an area of spine amenable to bracing. No bending/lifting or twisting, good body mechanics and posture. He also had a nasal bone fracture for which OMFS was consulted; no indication for surgery. Follow-up with OMFS as outpatient. Patient had a code purple occur on 11/25 AM, was hypoxic/altered/vomiting --> intubated 11/25 and transferred to the ICU. CT head with no acute finding. CT abdomen pelvis with findings suggestive of SBO and lower lung consolidation suggestive of pneumonia or aspiration pneumonitis. CT chest suggestive of extensive bilateral lower lobe consolidation, pneumonia versus aspiration pneumonitis. BAL Cx positive for K. pneumoniae; sensitive to ceftriaxone Patient was extubated on 11/28; vasopressors were weaned off. Sedation was weaned off on 11/29 Patient transferred out of the ICU on 11/30 Video swallow evaluation was done on 12/02; patient was started on a diet On evening of 12/02patient complaining of severe abdominal pain. CT abdomen/pelvis showed hematomas on left psoas muscle and left quadratus lumborum muscle. Per prior attending - Discussion was done with on-call surgeon; recommended supportive care; will need IR guided drainage if patient develops abscess in the region. Patient was transfused 2 unit of blood; bolus of IV fluids given On the morning of 12/03; patient was delirious; tachypneic and not directable. He was on 15 L of oxygen by nonrebreather. Stat chest x-ray showed pulmonary edema. Patient was given 1 dose of IV Lasix. He was transferred back to ICU. Weaned off of pressors and precedex and DG'd back to PCU on 12/05. on 12/12/2023venous duplex was obtained as patient complained of bilateral lower extremity pain. Found to have DVT of right femoral vein Patient has been tolerating Lovenox. Started on Coumadin bridge on December 16, 2023. Patient is deconditioned from prolonged hospitalization; requires max assist from 3-4 people. Referred to [facility] but rejected; Discharged to [facility] on 12/17 Acute DVT of right common femoral vein hx of DVT Patient was off therapeutic anticoagulation due to retroperitoneal hematoma Duplex from 12/12/2023; DVT of right femoral vein Continue on therapeutic Lovenox. Continue to monitor CBC; hemoglobin stable ar ound 9-10. hemoglobin of 11 on discharge. Vascular surgery was consulted for possible IVC placement; recommended anticoagulation for the time being. If patient has rebleeding; they will consider IVC filter placement. Started on Coumadin on December 16, 2023, INR day of discharge was 1.1 Plan to bridge with therapeutic Lovenox for next 5 days. PCP followup as well as coumadin clinic followup after discharge. Retroperitoneal hematoma on 12/02 patient complaining of severe abdominal pain. 12/02 CT abdomen/pelvis showed hematomas on left psoas muscle and left quadratus lumborum muscle. 12/05 CTAP: stable hematoma. Anasarca. Discussion was done with on-call surgeon on 12/02; recommended supportive care; will need IR guided drainage if patient develops abscess in the region. Was given 2 units of blood. Continue to monitor for signs and symptoms of progression after discharge. Small bowel obstructionresolved Earlier during the hospitalization; patient had developed ileus with small bowel obstruction. CT abdomen pelvis from 12/02no suggestion of bowel obstruction/inflammation On lactulose KUB obtained on December 14, 2023multiple gas-distended loops of large bowel. No small bowel obstruction. Continue bowel regimen. Abdomen distention improved with laxatives. Stable on discharge Septic shock Acute hypoxic respiratory failure Possible aspiration pneumonia Acute on chronic diastolic heart failure BAL Cx positive for K. pneumoniae; sensitive to ceftriaxone 12/03 chest x-ray - pulmonary edema and bilateral basal lobe consolidation Finished 7 days of cefepime and doxycycline. Patient had previously received Zosyn and ceftriaxone IV Lasix as needed if permissible w/ BP w/ prn kcl supplementation per nephro recs 12/07. Stable on discharge Altered mental status(delirium OR metabolic encephalopathy) likely secondary to underlying infectious process/pain. On lactulose for possible hepatic encephalopathy. Mentation improved. Continue antiseizure medication Acute kidney injury Likely secondary to sepsis/cardiorenal syndrome Creatinine up trended from 0.67-1.83 on 12/03; currently creatinine has improved. Urine output improving Continue support hemodynamics; continue antibiotics Nephrology on board; recommends supportive care. On Lasix 20 mg once a day Creatinine normal on discharge Mechanical Fall Closed T8 spinal fracture Lumbar spine CT with oblique fracture through the anterior body of T8 which extends through the inferior endplate and likely involves the T8-T9 disc space. This fracture may be unstable. Mild prevertebral edema/hemorrhage is seen at the T8 level [facility] evaluated on 11/23-mobilization with physical therapy, not an area of spine amenable to bracing. No bending/lifting or twisting, good body mechanics and posture Pain control with Tylenol [id number], c and Dilaudid. Fall precautions PT OT reordered Nasal bone fractures No acute bleeding Continue ice, pain control Discussed with [facility] 11/24 no indication for surgery for now, follow-up with OMFS as an outpatient. Uncontrolled DM II HbA1c 10.5 in Aug ,HbA1c of 7.5% this admission Hold home agents Basal/bolus insulin per protocol while in-patient Discontinued home glipizide on discharge with pcp followup Discharged with Novolog/Lantus regimen, PCP followup for continued monitoring and medication adjustments as needed Seizure disorder Continue home Depakote, Dilantin and topiramate BLE neuropathy Gabapentin dose recently changed to 200mg TID, continue BPH On Flomax and Proscar Bladder scan PRN Chronic lymphedema Chronic Venous insufficiency No open wounds Monitor for volume overload Gout Continue allopurinol Solitary kidney As per records DVT Ppx:lovenox/coumadin Code status: FULL PCP: Cruz Dispo: Patient referred to [facility] but rejected as she would not be able to tolerate 3 hours of therapy. Discharged to [facility] Discharge Exam General: Alert, oriented. Psych: Appropriate mood and affect Neuro: difficulty with movements in the bed HEENT: NC/AT CV: RRR Resp: Breath sounds clear bilaterally, no increased effort of breathing. Abdomen: Soft, nontender, nondistended Extremities: +++ edema in lower extremities bilaterally. Updated Medication List Medication Instructions Recorded Confirmed Type acetaminophen 500 mg tablet 500 mg PO Q6H PRN pain #60 tabs 12/17/23 Rx (Tylenol Extra Strength) allopurinol 300 mg tablet 450 mg (1.5 x 300 mg) PO DAILY #60 12/17/23 Rx tabs atorvastatin 80 mg tablet 80 mg PO DAILY #30 tabs 12/17/23 Rx calcium carbonate 600 mg-vitamin 1 tab PO BID #30 tabs 12/17/23 Rx D3 20 mcg (800 unit) tablet (Caltrate with Vitamin D3) cholecalciferol (vitamin D3) 25 1,000 unit PO DAILY #30 tabs 12/17/23 Rx mcg (1,000 unit) tablet divalproex 500 mg tablet,delayed 1,000 mg (2 x 500 mg) PO AMHS #120 12/17/23 Rx release tabs divalproex 500 mg tablet,delayed 500 mg PO DAILY@1500 #30 tabs 12/17/23 Rx release docusate sodium 100 mg capsule 100 mg PO BID #30 caps 12/17/23 Rx enoxaparin 120 mg/0.8 mL 120 mg (0.8 mL) subcut Q12H 5 days 12/17/23 Rx subcutaneous syringe (Lovenox) #8 mL finasteride 5 mg tablet 5 mg PO DAILY #30 tabs 12/17/23 Rx furosemide 20 mg tablet 20 mg PO DAILY #30 tabs 12/17/23 Rx gabapentin 100 mg capsule 100 mg PO TID #30 caps 12/17/23 Rx insulin aspart U-100 100 unit/mL 4 unit (0.04 mL) SC AC #10 mL 12/17/23 Rx subcutaneous solution (Novolog U-100 Insulin aspart) insulin glargine 100 unit/mL 8 unit (0.08 mL) subcut BID #10 mL 12/17/23 Rx subcutaneous solution (Lantus U-100 Insulin) lactulose 10 gram/15 mL oral 45 g (67.5 mL) PO QID #473 mL 12/17/23 Rx solution (Constulose) linagliptin 5 mg tablet (Tradjenta) 5 mg PO DAILY #30 tabs 12/17/23 Rx loratadine 10 mg tablet 10 mg PO DAILY PRN .runny nose #30 12/17/23 Rx tabs multivitamin 1 tab PO DAILY #30 tabs 12/17/23 Rx oxycodone 5 mg tablet 5 mg PO Q12H PRN pain #7 tabs 12/17/23 Rx pantoprazole 40 mg tablet,delayed 40 mg PO DAILY #30 tabs 12/17/23 Rx release phenytoin sodium extended 100 mg 400 mg (4 x 100 mg) PO BID #30 caps 12/17/23 Rx capsule (Dilantin Extended) potassium chloride 20 mEq 20 meq PO DAILY #30 tabs 12/17/23 Rx tablet,extended release(part/cryst) tamsulosin 0.4 mg capsule 0.4 mg PO HS #30 caps 12/17/23 Rx topiramate 200 mg tablet 200 mg PO BID #30 tabs 12/17/23 Rx warfarin 5 mg tablet 5 mg PO DAILY@1600 #30 tabs 12/17/23 Rx Hospital Stay Data Consultations 11/23/23 18:12 ED Decision to Admit Stat 11/24/23 07:07 Consult Oromaxillofacial Surgery Routine Consult Orthopedic Spine Surgery Routine 11/26/23 10:03 Consult Cardiology Routine 11/26/23 12:24 Consult Automatic Door Mechanic Routine 11/26/23 13:22 Consult General Surgery Stat 12/04/23 07:59 Consult Automatic Door Mechanic Routine 12/04/23 13:25 Consult Nephrology Routine 12/12/23 10:13 Consult Vascular Surgery Routine Diagnostic Imagining Performed 11/23/23 15:00 CT cervical spine wo con Stat CT facial bones wo con Stat CT head/brain wo con Stat CT lumbar spine wo con Stat CT thoracic spine wo con Stat 11/26/23 09:19 US venous doppler LE BI Urgent 11/26/23 09:28 CT head/brain wo con Stat 11/26/23 10:12 sono, invasive monitoring [US point of care ultrasound] Urgent 11/26/23 11:02 CT Abd and Pelvis [CT abd pelvis IV con only] Stat CT chest without contrast [CT chest diagnostic wo con] Stat 12/03/23 13:30 FL video swallow Routine 12/03/23 18:06 CT abd pelvis IV con only Stat 12/06/23 15:30 CT abd pelvis wo con Stat 12/11/23 12:33 CT head/brain wo con Urgent 12/12/23 07:48 US venous duplex leg [US venous doppler LE BI] Routine Cervical Spine CT 11/23/23 15:00 CT SCAN OF THE CERVICAL SPINE CLINICAL HISTORY: Trauma. Fall. COMPARISON STUDY: CT of the cervical spine dated 03/04/2022 TECHNIQUE: CT scan of the cervical spine is performed from the skull base to the upper thoracic spine. Images are reviewed in the axial, sagittal, and coronal planes. IV contrast was not administered for this examination. A dose lowering technique was utilized adhering to the principles of ALARA. The examination is degraded by suboptimal positioning within the CT gantry. FINDINGS: Skeletal structures: The skeletal structures are heterogeneously osteopenic. There is no evidence of fracture or subluxation involving the cervical spine. Vertebral body height and alignment are maintained. There is straightening of the cervical lordosis with reversal centered at C5. Anterior osteophytes are seen throughout. The odontoid process and lateral masses are intact. The atlantoaxial articulation is preserved noting mild productive degenerative change. The spinous processes appear intact. There is mild multilevel facet arthropathy. Intervertebral discs: There is mild multilevel degenerative disc space narrowing, greatest at C5-C6 and C6-C7. Central canal: Grossly patent. Soft tissues: The prevertebral and paraspinous soft tissues are within normal limits. There is atherosclerotic calcification of the carotid bulbs. Calvarium: The visualized calvarium at the skull base appears intact. Brain parenchyma: Partially visualized brain parenchyma at the skull base is within normal limits. Sinuses and mastoids: The visualized paranasal sinuses are clear. There are left larger than right mastoid effusions. Lung apices: Clear as visualized. IMPRESSION: 1. There is no evidence of fracture or subluxation involving the cervical spine. 2. Osteopenia and spondylotic change as above. ACT 112: Negative or not required by law. Electronically signed by: Alfredo Cade M.D. 11/23/2023 4:[address] 11/23/23 15:00 CT SCAN OF THE FACIAL BONES WITHOUT IV CONTRAST CLINICAL HISTORY: Fall. Facial injury. COMPARISON STUDY: Facial bone CT dated 04/10/2012 TECHNIQUE: High-resolution CT scan of the facial bones is performed. Images are reviewed in the axial, sagittal, and coronal planes. IV contrast was not administered for this examination. A dose lowering technique was utilized adhering to the principles of ALARA. FINDINGS: The skeletal structures are heterogeneously osteopenic. There is chronic deformity of the nasal bones. There is likely acute on chronic fracture of the nasal bones anteriorly. Overlying soft tissue edema is noted. No additional findings are suspicious for acute facial bone bone fracture. There is chronic deformity of the bony nasal septum which is deviated to the right. The bony orbits are intact and the orbital contents are within normal limits. The zygomatic arches and pterygoid plates are preserved. The maxilla and mandible are intact. Arthritic change is seen in the temporomandibular joints. There are no layering blood products within the paranasal sinuses. There is mild mucosal thickening within the maxillary antra. The remaining paranasal sinuses are clear. There are left larger than right mastoid effusions. Cerumen is noted in the external auditory canals. The visualized calvarium and upper cervical spine are maintained. Partially imaged brain parenchyma is within normal limits. There are dental caries of the remaining mandibular teeth. There are calcified sialoliths in the right parotid gland. IMPRESSION: 1. Suspect acute on chronic bilateral nasal bone fractures. Correlate clinically. 2. No additional findings are suspicious for acute facial bone fracture. The orbits are intact. ACT 112: Negative or not required by law. Electronically signed by: Alfredo Cade M.D. 11/23/2023 6:[address] 11/23/23 15:00 CT SCAN OF THE BRAIN WITHOUT IV CONTRAST CLINICAL HISTORY: Dizziness. COMPARISON STUDY: CT of the brain dated 10/04/2023. TECHNIQUE: Unenhanced axial CT scan of the brain is performed from the vertex to the skull base. A dose lowering technique was utilized adhering to the principles of ALARA. The examination is degraded by inability to properly position the patient within the CT gantry. The patient was scanned twice due to motion artifact. CT DOSE: 4927.16 mGy.cm FINDINGS: Brain parenchyma: There is age-related involutional change noting minimal microangiopathic disease. There is no hemorrhage, mass effect, or evidence of acute territorial ischemia by CT criteria. Vázquez-white matter differentiation is preserved. No extra-axial fluid collection is seen. Ventricles, sulci, cisterns: Prominent secondary to involutional change. Intracranial vasculature: There is atherosclerotic calcification of the cavernous carotid arteries. Calvarium: Unremarkable. Sinuses and mastoids: The visualized paranasal sinuses are clear. The mastoid air cells are well pneumatized. Orbits: The bony orbits are grossly intact. IMPRESSION: There is no hemorrhage, mass effect, or evidence of acute territorial ischemia by CT criteria. ACT 112: Negative or not required by law. Electronically signed by: Alfredo Cade M.D. 11/23/2023 4:[address] 11/23/23 15:00 CT SCAN OF THE LUMBAR SPINE WITHOUT IV CONTRAST CLINICAL HISTORY: Fall. Low back pain. COMPARISON STUDY: CT scan of the lumbar spine dated 11/02/2013. Abdominal CT dated 06/28/2021. TECHNIQUE: CT scan of the lumbar spine is performed from the lower thoracic spine to the sacrum. Images are reviewed in the axial, sagittal, and coronal planes. IV contrast was not administered for this examination. A dose lowering technique was utilized adhering to the principles of ALARA. There is streak artifact from the body wall abutting the CT gantry. The examination is also degraded by the degree of osteopenia. FINDINGS: The skeletal structures are heterogeneously osteopenic. There is no evidence of acute fracture or malalignment involving the lumbar spine. There is a minimal chronic superior endplate compression deformity of L3. This is unchanged from 2020. Vertebral body height is otherwise maintained throughout the lumbar spine. Alignment is preserved. Anterior and lateral marginal osteophytes are seen throughout. The transverse and spinous processes appear intact. There is no spondylolysis. No lytic or blastic lesion is seen. Mild facet arthropathy is noted in the lower lumbar region. There is minimal degenerative disc space narrowing seen throughout the lumbar spine. There is no CT evidence of large disc herniation or high-grade central canal stenosis. The visualized sacrum and bony pelvis appear intact. There is mild fatty atrophy of the paraspinous musculature. There is moderate atherosclerotic calcification of the abdominal aorta, which is normal in caliber. There is evidence of previous right nephrectomy. No retroperitoneal lymphadenopathy is seen. IMPRESSION: 1. There is no evidence of fracture or malalignment involving the lumbar spine. 2. Osteopenia and spondylotic change as above. 3. There is postsurgical change from previous right nephrectomy. ACT 112: Negative or not required by law. Dictated: 11/23/2023 4:19 PM Transcribed: 11/23/2023 4:31 PM Diego [id number] [email or web address] Electronically signed by: Alfredo Cade M.D. 11/23/2023 5:[address] 11/23/23 15:00 CT SCAN OF THE THORACIC SPINE WITHOUT IV CONTRAST CLINICAL HISTORY: Fall. Thoracic back pain. COMPARISON STUDY: Chest CT dated 10/15/2020. TECHNIQUE: CT scan of the thoracic spine was performed from the lower cervical spine the upper lumbar spine. Images are reviewed in the axial, sagittal, and coronal planes. IV contrast was not administered for this examination. A dose lowering technique was utilized adhering to the principles of ALARA. FINDINGS: The skeletal structures are heterogeneously osteopenic. There is an acute fracture through the anterior body and inferior endplate of T8. This is best seen on sagittal image #54. This likely extends through the T8-T9 disc space. There is no clear evidence of posterior element involvement. There is no retropulsion of fragments. Paravertebral edema/hemorrhage is seen at this level. No additional acute fracture is seen involving the thoracic spine. Minimal superior endplate compression deformities of T5, T6, T7, T8, T9, and T10 are chronic. Small anterior osteophytes are seen throughout. The transverse and spinous processes appear intact. No lytic or blastic lesion is seen. A bone island in the body of T2 is unchanged. There is mild multilevel degenerative disc space narrowing. There is no CT evidence of large disc herniation or high- grade central canal stenosis throughout the thoracic region. There are numerous chronic/healed right posterior rib fractures. The paraspinous soft tissues are normal as imaged. There is postsurgical change from previous right nephrectomy. There is bibasilar scarring/atelectasis. No airspace consolidation typical for pneumonia is identified. There is no pleural effusion. IMPRESSION: 1. Oblique fracture through the anterior body of T8 which extends through the inferior endplate and likely involves the T8-T9 disc space. This fracture may be unstable. 2. There is no retropulsion of fragments or evidence of posterior element involvement. 3. Mild prevertebral edema/hemorrhage is seen at the T8 level. 4. No additional acute fracture is identified. 5. Additional findings as above. ACT 112: Negative or not required by law. Electronically signed by: Alfredo Cade M.D. 11/23/2023 4:35 PM Chest X-Ray 11/23/23 15:01 SINGLE VIEW CHEST CLINICAL HISTORY: Generalized weakness. FINDINGS: 2 AP, portable, upright chest radiographs are compared to study dated 10/03/2023. Correlation is made with chest CT dated 10/15/2020. The heart is enlarged. The pulmonary vasculature is noncongested. Chronic interstitial thickening is similar to previous. There is bibasilar scarring/atelectasis. No airspace consolidation or large pleural effusion is identified. No pneumothorax is seen. The skeletal structures are osteopenic. The bony thorax is grossly intact. Arthritic change is noted in the shoulders. IMPRESSION: Mild cardiomegaly with no acute cardiopulmonary abnormality identified. ACT 112: Negative or not required by law. Electronically signed by: Alfredo Cade M.D. 11/23/2023 4:04 PM KUB X-Ray 11/25/23 09:40 KUB HISTORY: Acute generalized abdominal pain with distention abd distended, tender, recent spine fracture COMPARISON: CT thoracolumbar spine studies 11/23/2023 FINDINGS: Right abdominal surgical clips. There is gaseous distention of the right hemicolon, similar to prior. No renal calculi. No ureteral calculi. No pneumoperitoneum or pneumatosis. Demineralized appearance of the bones. Limited study secondary to patient body habitus. The T8 fracture is better seen on the comparison CT.. IMPRESSION: 1. Gaseous distention of the large bowel suggestive of colonic ileus. 2. The T8 fracture is better seen on the CT exam study from 11/23/2043. ACT 112: Negative or not required by law. The above report was generated using voice recognition software. It may contain grammatical, syntax or spelling errors. Electronically signed by: Chito Chapman M.D. 11/25/2023 10:53 AM Chest X-Ray 11/26/23 09:19 XR chest 1V portable HISTORY: Fever. COMPARISON: Chest 11/23/2023. FINDINGS: There are low lung volumes. Mild elevation of the right hemidiaphragm, unchanged. The cardiac silhouette remains enlarged. There is mild central pulmonary vascular congestion without overt edema. This is similar to the prior study. Bibasilar linear densities have progressed. This could represent atelectasis or a pneumonia. IMPRESSION: 1. Cardiomegaly and mild congestive change. This is similar to the prior study. 2. Bibasilar linear densities have progressed. This may represent atelectasis or pneumonia. This will be better assessed on the same day abdomen and pelvis CT. ACT 112: Negative or not required by law. Electronically signed by: Maynor Augustin M.D. 11/26/2023 9:59 AM Venous Doppler Study 11/26/23 09:19 BILATERAL LOWER EXTREMITY VENOUS DOPPLER CLINICAL HISTORY: 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. COMPARISON STUDY: Bilateral lower extremity venous Doppler ultrasound April 05, 2022. TECHNIQUE: Sonography of the deep venous system of the bilateral lower extremities was performed. Compression and augmentation were evaluated. FINDINGS: Right femoral venous catheter is incidentally noted. There is no deep venous thrombus within the right lower extremity. Stranding within the left superficial femoral and popliteal veins is present. This favors chronic deep venous thrombus. Calf vessels were patent. There is lower extremity edema. IMPRESSION: Stranding within the left superficial femoral and popliteal veins. This favors chronic deep venous thrombus. No convincing evidence for acute deep venous thrombus within the lower extremities. ACT 112: Negative or not required by law. Electronically signed by: Omari Foreman M.D. 11/26/2023 3:[address] 11/26/23 09:28 CT head/brain wo con CLINICAL HISTORY: 63 years-old Male with altered mentation. Acutely altered mental status TECHNIQUE: Multiple axial CT images of the head were obtained without contrast. A dose lowering technique was utilized adhering to the principles of ALARA. CT DOSE: 836.67 mGy.cm COMPARISON: 11/23/2023, 04/10/2012. FINDINGS: No acute intracranial hemorrhage, midline shift, intracranial mass, hydrocephalus, territorial ischemia or abnormal extra-axial collection. Limited exam secondary to motion degradation in positioning. Additional changes with white matter hypodensities redemonstrated suggestive of chronic microvascular ischemic disease. Cerebrovascular calcifications. The calvarium is intact. There is a mixed lucent and sclerotic expansile 1.2 cm lesion involving the right frontal calvarium on image 14 series 5 which is unchanged dating back to 2011 compatible with benign etiology. Small mastoid effusions with left middle ear effusion. IMPRESSION: No acute intracranial abnormality identified. ACT 112: Negative or not required by law. The above report was generated using voice recognition software. It may contain grammatical, syntax or spelling errors. Electronically signed by: Chito Chapman M.D. 11/26/2023 1:12 PM Chest X-Ray 11/26/23 10:29 XR chest 1V portable CLINICAL HISTORY: s/p oral intubation COMPARISON STUDY: Chest radiograph performed earlier today. FINDINGS: The tip of the endotracheal tube is 3.5 cm above the mattie. Low lung volumes are unchanged. Bibasilar opacities persist. Cardiomediastinal silhouette is stable. Pulmonary vascular congestion is again noted. Tip of nasogastric tube is below the lower aspect of this image but at least within the body of the stomach. No pneumothorax or pleural effusion is present. IMPRESSION: 1. Tip of endotracheal tube 3.5 cm above the mattie. 2. No change in low lung volumes with bibasilar basilar opacities which could reflect atelectasis or pneumonia. 3. Cardiomegaly with pulmonary vascular congestion, unchanged. ACT 112: Negative or not required by law. Electronically signed by: Omari Foreman M.D. 11/26/2023 10:58 AM Abdomen/Pelvis CT 11/26/23 11:02 CT OF THE ABDOMEN AND PELVIS WITH CONTRAST CLINICAL HISTORY: r/o SBO COMPARISON STUDY: CT of the abdomen and pelvis June 28, 2021. KUB November 25, 2023. TECHNIQUE: Following IV administration of 93 mL of Optiray, axial images of the abdomen and pelvis were obtained from the lung bases to the proximal femurs. Images were reviewed in the axial, sagittal, and coronal planes. IV contrast was administered without complication. Automated exposure control was utilized for the study. A dose lowering technique was utilized adhering to the principles of ALARA. CT DOSE: 2366.27 mGy.cm FINDINGS: Extensive bilateral lower lung consolidation with multifocal airspace opacities are better depicted on the chest CT which will be reported separately. The stomach is moderately distended. Tip of nasogastric tube is within the gastric body. No pneumatosis, free air or portal venous gas is present. Liver, spleen, adrenal glands and pancreas are unremarkable. Water attenuation left renal lesion represents a cyst. There is no abnormality within the right nephrectomy bed. Edwards balloon within the collapsed bladder is present. A small amount of ascites within the right paracolic gutter and pelvis is present. There is no fluid collection. The proximal to mid small bowel is moderately dilated and fluid-filled. Probable transition point within the ileum on axial image 317 of 473 is present. The distal small bowel is decompressed. Associated mesenteric stranding. No bowel wall thickening. An oblique acute T8 vertebral body fracture is unchanged since the thoracic spine CT of November 23, 2023. IMPRESSION: 1. Findings consistent with a small bowel obstruction, as described above. Small amount of ascites and mesenteric stranding. No bowel wall thickening. No pneumatosis, free air or portal venous gas. 2. Extensive lower lung consolidation and airspace opacities suggestive of pneumonia or aspiration pneumonitis. 3. Moderately distended stomach. Tip of nasogastric tube within the gastric body. 4. No change in appearance of an acute oblique T8 vertebral body fracture. ACT 112: Negative or not required by law. Electronically signed by: Omari Foreman M.D. 11/26/2023 1:[address] 11/26/23 11:02 CT OF THE CHEST WITHOUT IV CONTRAST CLINICAL HISTORY: r/o PNA COMPARISON STUDY: Chest CT October 15, 2020. Chest radiograph performed earlier today. TECHNIQUE: Axial images of the chest were obtained without IV contrast. Images were reviewed in the axial, sagittal, and coronal planes. IV contrast was not administered for this examination. Automated exposure control was utilized for the study. A dose lowering technique was utilized adhering to the principles of ALARA. FINDINGS: Tip of the endotracheal tube is 2.3 cm above the mattie. Tip of nasogastric tube is within the body of the stomach. There is mild cardiomegaly and moderate coronary artery calcification. There is no pericardial effusion. No enlarged axillary, mediastinal or hilar lymph nodes are present. Central airways are patent. There is no pneumothorax or pleural effusion. Extensive bilateral lower lobe consolidation is present. Additional multifocal airspace opacities within the right lung are present. There is no cavitation. Lungs are suboptimally assessed due to respiratory motion. An acute oblique T8 vertebral body fracture similar in appearance to the thoracic spine CT of November 23, 2023. There is mild paravertebral stranding. Old right-sided rib fractures are incidentally noted. IMPRESSION: 1. Extensive bilateral lower lobe consolidation with additional right lung airspace opacities. The findings suggest pneumonia or aspiration pneumonitis. 2. Well-positioned endotracheal and nasogastric tubes. 3. No change in appearance of an acute oblique T8 vertebral body fracture since CT of November 23, 2023. 4. No pneumothorax. ACT 112: Negative or not required by law. Electronically signed by: Omari Foreman M.D. 11/26/2023 1:23 PM Chest X-Ray 11/27/23 07:00 XR chest 1V portable HISTORY: 63 years-old Male Resp failure acute respiratory failure COMPARISON: 11/26/2023 TECHNIQUE: AP view of the chest FINDINGS: Endotracheal tube overlies the midline, 3.9 cm superior to the mattie. Heart is enlarged. Enteric tube courses below the diaphragm outside the field of view. Mild right hemidiaphragmatic elevation. Small pleural effusions. Bilateral airspace opacities, most of the right greater than left lung bases and right midlung. No pneumothorax identified. Bones appear grossly intact. IMPRESSION: 1. Lines and tubes as above. 2. Stable appearance of the multifocal pneumonia. ACT 112: Negative or not required by law. The above report was generated using voice recognition software. It may contain grammatical, syntax or spelling errors. Electronically signed by: Chito Chapman M.D. 11/27/2023 7:06 AM Chest X-Ray 11/28/23 07:00 XR chest 1V portable HISTORY: Resp failure COMPARISON: Chest 11/27/2023. FINDINGS: There are low lung volumes with patchy bibasilar densities, unchanged. Suspect a trace right pleural effusion. Perihilar interstitial/vascular thickening persists consistent with mild pulmonary edema. The patient's nasogastric tube is not well visualized distally. The endotracheal tube terminates 3.1 cm from the mattie. IMPRESSION: 1. The patient's nasogastric tube is not well visualized distally. 2. Endotracheal tube terminates 3.1 cm from the mattie. 3. Bibasilar airspace opacities and mild pulmonary edema persists. ACT 112: Negative or not required by law. Electronically signed by: Maynor Augustin M.D. 11/28/2023 8:07 AM KUB X-Ray 11/28/23 07:00 KUB HISTORY: Follow-up small bowel obstruction. COMPARISON: KUB 11/25/2023. FINDINGS: Nasogastric tube terminates in the stomach. Surgical clips along the right side of the abdomen. Right femoral catheter is noted. Rectal thermometer and Edwards catheter are also seen within the deep pelvis. No renal calculi. No ureteral calculi. No pneumoperitoneum or pneumatosis. Dilated gas-filled loops of large and small bowel have improved in the interval. IMPRESSION: 1. Dilated loops of large and small bowel have improved in the interval. 2. Lines and tubes as above. ACT 112: Negative or not required by law. Electronically signed by: Maynor Augustin M.D. 11/28/2023 8:08 AM Chest X-Ray 11/30/23 07:00 XR chest 1V portable CLINICAL HISTORY: f/u COMPARISON STUDY: Chest CT November 26, 2023. Chest radiograph November 28, 2023. FINDINGS: This exam is compromised given difficulty positioning. The endotracheal and nasogastric tubes have been removed. No pneumothorax is identified. There are small to moderate right and small left pleural effusions. Extensive bilateral airspace opacities and interstitial thickening persists. Cardiomediastinal silhouette is stable. IMPRESSION: 1. Persistent extensive bilateral airspace opacities suggestive of pneumonia. Probable superimposed pulmonary edema. 2. Moderate right and small left pleural effusions. No pneumothorax. ACT 112: Negative or not required by law. Electronically signed by: Omari Foreman M.D. 11/30/2023 7:19 AM KUB X-Ray 11/30/23 07:00 KUB CLINICAL HISTORY: Small bowel obstruction. COMPARISON STUDY: CT of the abdomen and pelvis November 26, 2023. KUB November 28, 2023. FINDINGS: There has been continued improvement in small bowel dilatation since prior exam. No dilated loops of small bowel are identified on this exam. Scattered colonic gas is present. There is a moderate amount of stool within the rectum. Right abdominal surgical clips are incidentally noted. Right femoral central venous catheter remains in place. IMPRESSION: Findings suggestive of a resolving small bowel obstruction. ACT 112: Negative or not required by law. Electronically signed by: Omari Foreman M.D. 11/30/2023 7:40 AM Videofluoroscopic Swallow 12/03/23 13:30 VIDEO SWALLOW STUDY CLINICAL HISTORY: Aspiration. COMPARISON STUDY: No priors. FLUOROSCOPY TIME: 1.[address] DOSE: 10.3 mGy FINDINGS: Fluoroscopic guidance is provided to department of speech pathology in performing a video swallow study. The patient consumed barium impregnated pudding, cracker with paste, nectar thick liquids, and thin barium while the swallowing mechanism was observed in real-time. No penetration or aspiration was seen with any of the sampled textures. IMPRESSION: No penetration or aspiration was seen with any of the sampled textures. See dedicated speech pathology report for detailed findings and recommendations. Electronically signed by: Alfredo Cade M.D. 12/03/2023 2:43 PM Abdomen/Pelvis CT 12/03/23 18:06 Exam(s): CT ABDOMEN + PELVIS With Contrast IV Amt: 90 ML OPTIRAY 320 EXAM: CT Abdomen and Pelvis With Intravenous Contrast CLINICAL HISTORY: Reason for exam: Severe abdominal pain after eating. TECHNIQUE: Axial computed tomography images of the abdomen and pelvis with intravenous contrast. CTDI is 34.09 mGy and DLP is 2079.86 mGy-cm. Automated exposure control was utilized for the study. A dose lowering technique was utilized adhering to the principles of ALARA. CONTRAST: Patient received 90 ML OPTIRAY 320 of IV contrast COMPARISON: CT abdomen/pelvis on 11/26/2023 FINDINGS: Lung bases: Dependent consolidations bilaterally may represent atelectasis versus pneumonia. Pleural space: Small bilateral pleural effusions. ABDOMEN: Liver: Hepatomegaly. Gallbladder and bile ducts: Unremarkable. No calcified stones. No ductal dilation. Pancreas: Atrophy of the pancreas. No ductal dilation. Spleen: Mild splenomegaly. Adrenals: Unremarkable. No mass. Kidneys and ureters: Right nephrectomy change. Nonspecific left perinephric fat stranding. No hydronephrosis or obstructing stone. Stomach and bowel: Unremarkable. No mucosal thickening. No bowel obstruction or inflammation. PELVIS: Appendix: Normal appendix. Bladder: The catheter and an underdistended bladder limits evaluation. Reproductive: Unremarkable as visualized. Subperitoneal space: Small amount of presacral fluid. Small amount of fluid in the lower abdomen. ABDOMEN and PELVIS: Intraperitoneal space: Unremarkable. No free air. No significant fluid collection. Bones/joints: Stable fracture and the inferior aspect of T8. Stable mild superior endplate depression of L3. Degenerative changes of the spine. Old right-sided rib fracture deformities. No dislocation. Soft tissues: Probable evolving hematomas within the left psoas muscle, measuring approximately 0.7 x 2.5 x 13.9 cm, and left quadratus lumborum muscle, measuring approximately 7.8 x 6.5 x 8.4 cm. Body wall edema. Small fat-containing umbilical hernia. Moderate fat-containing upper ventral hernia. Vasculature: Unremarkable. No abdominal aortic aneurysm. Lymph nodes: Unremarkable. No enlarged lymph nodes. IMPRESSION: 1. Dependent consolidations bilaterally may represent atelectasis versus pneumonia. 2. Small bilateral pleural effusions. 3. Probable evolving hematomas within the left psoas muscle, measuring approximately 0.7 x 2.5 x 13.9 cm, and left quadratus lumborum muscle, measuring approximately 7.8 x 6.5 x 8.4 cm. 4. Small amount of presacral fluid. Small amount of fluid in the lower abdomen. Electronically signed by: Shahrzad York M.D. 12/03/23 19:14 PM Chest X-Ray 12/04/23 07:46 SINGLE VIEW CHEST CLINICAL HISTORY: Respiratory distress. FINDINGS: An AP, portable, semierect chest radiograph is compared to study dated 11/30/2023. Correlation is made with chest CT dated 11/26/2023. The examination is degraded by portable technique and apical lordotic positioning. The patient's head partially obscures the apices. The heart is enlarged. There is pulmonary vascular congestion and evidence of interstitial edema. There are layering pleural effusions with dependent consolidation. No pneumothorax is seen. The skeletal structures are osteopenic. The bony thorax is grossly intact. Advanced arthritic change is seen in the shoulders. IMPRESSION: 1. Cardiomegaly with evidence of congestive failure. 2. Layering pleural effusions with dependent consolidation. This is similar to previous. ACT 112: Negative or not required by law. Electronically signed by: Alfredo Cade M.D. 12/04/2023 8:09 AM Chest X-Ray 12/04/23 11:26 SINGLE VIEW CHEST CLINICAL HISTORY: Central venous catheter placement. FINDINGS: 2 AP, portable, supine chest radiographs are compared to study performed earlier the same day 12/04/2023. Correlation is made with chest CT dated 11/26/2023. The examination is degraded by portable technique and apical lordotic positioning. The patient's head partially obscures the apices. A right internal jugular central venous catheter has been placed. The tip of the catheter projects over the right atrium. The heart is enlarged. There is pulmonary vascular congestion and evidence of interstitial edema. There are layering pleural effusions with dependent consolidation. No pneumothorax is seen. The skeletal structures are osteopenic. The bony thorax is grossly intact. Advanced arthritic change is seen in the shoulders. IMPRESSION: 1. A right internal jugular central venous catheter has been placed as above. No pneumothorax is seen post procedure 2. Cardiomegaly with evidence of congestive failure and pulmonary edema. This has worsened from today's earlier examination. 3. Layering pleural effusions with dependent consolidation. This is likely similar to previous. ACT 112: Negative or not required by law. Electronically signed by: Alfredo Cade M.D. 12/04/2023 12:17 PM Abdomen/Pelvis CT 12/06/23 15:30 CT SCAN OF THE ABDOMEN AND PELVIS WITHOUT IV CONTRAST CLINICAL HISTORY: Psoas hematoma. COMPARISON STUDY: Abdominal CT dated 12/03/2023. TECHNIQUE: CT scan of the abdomen and pelvis is performed from the lung bases to the proximal femora. Images are reviewed in the axial, sagittal, and coronal planes. IV contrast was not administered for this examination. A dose lowering technique was utilized adhering to the principles of ALARA. The examination is degraded by motion artifact, as well as by streak artifact from the arms which could not be elevated above the abdomen. CT DOSE: 2108.66 mGy.cm FINDINGS: Lung bases: The tip of a central venous catheter terminates at the cavoatrial junction. The heart is normal in size and without pericardial effusion. The coronary arteries are densely calcified. There are small pleural effusions with dependent consolidation. Liver: The unenhanced liver is normal in size, contour, and attenuation. There is no intrahepatic biliary ductal dilatation. Gallbladder: Distended but otherwise normal in appearance. Spleen: Normal in size and attenuation. Pancreas: The unenhanced pancreas is moderately atrophic and grossly u nremarkable. Adrenal glands: Unremarkable. Kidneys: The right kidney is surgically absent. The unenhanced left kidney is normal in size and without hydronephrosis. There are no renal calculi ident ified. A 1.4 cm exophytic cyst is again noted. Abdominal vasculature: The abdominal aorta is normal in course and caliber noting moderate atherosclerotic calcification. Bowel: There is no bowel obstruction. Residual enteric contrast is noted in the colon. The appendix is well-visualized and normal. There is likely a rectal catheter in place. Peritoneum/retroperitoneum: There is trace abdominal pelvic ascites. No intraperitoneal free air is seen. There is a small fat-containing umbilical hernia. There is also a large fat-containing supraumbilical ventral hernia. Intramuscular hemorrhage within the left psoas and left-sided retroperitoneal hemorrhage is similar in appearance to the 12/03/2023 examination. The retroperitoneal component of the hemorrhage measures approximately 10 x 10 x 5.5 cm as seen on axial image #213 with surrounding infiltration. The intramuscular hemorrhage within the psoas extends approximately 18 cm in craniocaudal length. Lymphadenopathy: None. Pelvic viscera: The prostate gland is diminutive and heterogeneous. The bladder is decompressed and a Edwards catheter and cannot be evaluated. There are foci of intraluminal gas. There are bilateral fat-containing inguinal hernias, left larger than right. Skeletal structures: The skeletal structures are heterogeneously osteopenic. A subacute oblique T8 vertebral body fracture is unchanged. There are numerous additional minimal chronic compression deformities in the imaged lower lumbar spine. Moderate lumbosacral spondylosis is observed. No lytic or blastic lesions are seen. There are chronic right-sided rib fractures. Soft tissues: There is body wall edema. IMPRESSION: 1. Intramuscular hemorrhage within the left psoas and left retrotracheal hemorrhage is similar in size to the 12/03/2023 examination. 2. Small pleural effusions with dependent airspace consolidation. This is also similar to previous. Correlate clinically for evidence of pneumonia. 3. Anasarca. 4. Status post right nephrectomy. 5. Advanced coronary artery atherosclerosis. 6. A subacute vertebral body fracture of T8 is again noted. 7. Additional findings as above. ACT 112: Negative or not required by law. Electronically signed by: Alfredo Cade M.D. 12/06/2023 4:30 PM Hip/Pelvis X-Ray 12/10/23 10:31 XR hip LT 2V w pelvis CLINICAL HISTORY: left hip pain TECHNIQUE: 2 views of the left hip and single frontal view of the pelvis were obtained. Comparison: Comparison is made to hip radiograph 10/22/2014 FINDINGS: There is no evidence of an acute fracture. Degenerative changes are seen in the hip joint. No soft tissue abnormality is seen. IMPRESSION: Degenerative changes without evidence of acute abnormality. ACT 112: Negative or not required by law. Electronically signed by: Umberto Johns M.D. 12/10/2023 12:11 PM Knee X-Ray 12/10/23 10:31 XR knee LT 1 or 2V routine CLINICAL HISTORY: knee pain on rom, out of proportion COMPARISON: None FINDINGS: Alignment of the left knee is anatomic. No acute fracture. There are no osseous lesions. Superior patellar spurring is noted. There is a small to moderate left knee joint effusion. Joint spaces are preserved. IMPRESSION: 1. No fractures within the left knee. 2. Small to moderate left knee joint effusion. ACT 112: Negative or not required by law. Electronically signed by: Omari Foreman M.D. 12/10/2023 12:[address] 05/08/24 12:33 CT OF THE HEAD WITHOUT CONTRAST CLINICAL HISTORY: Altered mental status. COMPARISON STUDY: Head CT November 26, 2023. CT DOSE: 904.42 mGy.cm TECHNIQUE: Helical axial images of the head were obtained without IV contrast. Automated exposure control was utilized for the study. A dose lowering technique was utilized adhering to the principles of ALARA. FINDINGS: This study is significantly compromised given difficulty positioning and motion artifact. No acute intracranial hemorrhage, midline shift or mass effect is identified. The ventricular system is normal. Basal cisterns are patent. No extra axial collections are identified. There has been no significant change in appearance of the brain. No calvarial fractures are identified IMPRESSION: No acute intracranial findings. Exam moderately compromised by artifact, as described above. ACT 112: Negative or not required by law. Electronically signed by: Omari Foreman M.D. 12/11/2023 1:51 PM Venous Doppler Study 12/12/23 07:48 ULTRASOUND BILATERAL LOWER EXTREMITY VENOUS CLINICAL HISTORY: Leg pain and swelling COMPARISON STUDY: Bilateral lower extremity venous ultrasound dated 11/26/2023 TECHNIQUE: Real-time, grayscale, and color Doppler sonography of the deep veins of the right and left lower extremity was performed from the inguinal crease to the calf. Compression and augmentation were utilized. FINDINGS: Right lower extremity: There is nearly occlusive deep venous thrombosis identified in the common femoral vein. The superficial femoral and popliteal veins are patent and normally compressible. There is nearly occlusive superf icial venous thrombosis in the profunda femoris vein at the junction of the common femoral vein. The greater saphenous vein appears clear. The visualized calf veins are patent. Left lower extremity: Stranding in the distal superficial femoral vein and the popliteal vein is consistent with chronic thrombus. This is similar to previous. The common femoral, superficial femoral, and popliteal veins are otherwise patent and normally compressible. The greater saphenous vein and the profunda femoris vein at the junction with the common femoral vein are clear. The visualized calf veins are patent. IMPRESSION: 1. There is acute nearly occlusive deep venous thrombosis identified in the right common femoral vein. 2. Acute superficial venous thrombus is seen within the right profunda femoris vein. 3. Trace chronic thrombus is again seen in the superficial femoral and popliteal veins. ACT 112: Negative or not required by law. Electronically signed by: Alfredo Cade M.D. 12/12/2023 9:55 AM KUB X-Ray 12/14/23 09:09 XR KUB/Abdomen 1 view CLINICAL HISTORY: Abdomen distension, rule out ileus/SBO TECHNIQUE: 1 view of the abdomen was obtained. Comparison: Comparison is made to abdomen radiograph 11/30/2023 FINDINGS: Lung bases are unremarkable. Degenerative changes are seen in the visualized skeleton. Multiple gas-distended loops of large bowel are seen including a prominent sigmoid colonic loop. No small bowel dilation is seen. IMPRESSION: Multiple gas-distended loops of large bowel. No small bowel obstruction. ACT 112: Negative or not required by law. Electronically signed by: Umberto Johns M.D. 12/14/2023 9:53 AM Pending Results Patient Have Any Pending Studies at Discharge: No Discharge Instructions Given to Patient (Per Discharging Provider) You were found to have DVT in right lower extremity; You are prescribed Lovenox 120 mg subcu twice daily for next 5 days. You are also prescribed Coumadin 5 mg once a day. Please repeat PT/INR every day. Stop Lovenox after 5 days or if INR is therapeutic on 2 occasions. Please initial bowel regimen to make sure patient has bowel movement every day Patient has T8 spinal fracture. No bending/lifting or twisting. Good body mechanics and posture. Pain control with Tylenol and oxycodone as needed. Total Time Total Time Spent Total Time Spent (In Minutes): 75
[2023-12-18 08:42] LABS: Basophils # (auto) 0.06 K/uL (0.00-0.20); Basophils % (auto) 0.9 %; Eosinophils # (auto) 0.16 K/uL (0.00-0.50); Eosinophils % (auto) 2.4 %; Immature Granulocytes # (auto) 0.06 K/uL (0.01-0.20); Immature Granulocytes % (auto) 0.9 %; Lymphocytes # (auto) 2.28 K/uL (1.20-3.40); Lymphocytes % (auto) 34.7 %; Mean Corpuscular Hemoglobin 33.5 pg (25.0-34.0); Mean Corpuscular Hgb Conc 33.3 g/dL (32.0-36.0); Mean Corpuscular Volume 100.6 fL (80.0-100.0); Mean Platelet Volume 9.2 fL (9.4-12.4); Monocytes # (auto) 0.49 K/uL (0.11-0.59); Monocytes % (auto) 7.5 %; Neutrophils # (auto) 3.52 K/uL (1.40-6.50); Neutrophils % (auto) 53.6 %; Platelet Count 208 K/uL (130-400); RDW Coefficient of Variation 16.5 % (11.5-14.5); RDW Standard Deviation 60.4 fL (36.4-46.3); Red Blood Count 3.28 M/uL (4.70-6.10); White Blood Count 6.57 K/ul (4.8-10.8)
[2023-12-18 08:58] LABS: Albumin Globulin Ratio 0.8 (0.9-2); Albumin Level 2.8 gm/dl (3.4-5.0); BUN Creatinine Ratio 22.2 (10-20); Bilirubin,Total 0.5 mg/dl (0.2-1.0); Calcium 8.1 mg/dl (8.6-10.3); Creatinine Clr Calc Pharmacy 154.6 ml/min; Est GFR (African American) 119.9 ml/min; Est GFR (Non-African American) 103.4 ml/min; Globulin 3.6 gm/dl (2.5-4.0); Potassium 3.8 mmol/L (3.5-5.1); Total Protein 6.4 gm/dl (6.0-8.3)
[2023-12-18 09:08] LABS: INR 1.1 (0.9-1.1); Prothrombin Time 12.2 Seconds (9.0-12.0)
--- NOTE | 2023-12-18 11:22 | Pharmacy Report ---
Pharmacy Glycemic Sign Off Nt - Date of Service December 18, 2023 - Assessment & Plan ASSESSMENT: * Pharmacy consulted for glycemic management. * No changes to glycemic regimen for about 1 week. * BSG's ranged 99-151 mg/dL over the last 48 hours. * Pharmacy will sign off management at this time - discussed w Dr. Milan. PLAN FOR INPATIENT GLYCEMIC CONTROL: No changes needed to current regimen. * Continue basal insulin with Lantus 8 units SQ BID * Continue NovoLog per scale ACHS/Q6hrs while NPO * Goal range = 110 140 mg/dl * CF = 20 mg/dl/unit * CR = 1 unit for ever 7 g CHO consumed * Pharmacy is signing off of glycemic consult and will no longer be making adjustments to inpatient regimen. Please feel free to re-consult if needed. Thank you.
--- NOTE | 2023-12-21 08:06 | Coding Query ---
PRESENT ON ADMISSION QUERY To promote full compliance with coding requirements relating to pateint care, physician participation is requested in all cases of engineer rf deployment uncertainty. Please assist us with the question(s) below: Please place an X within the parenthesis (x). The following diagnosis(es) listed in this patient's medical record require physician assistance to determine if they were present on admission (POA) or not. Please advise for each diagnosis whether it was present on admission, not present on admission, or if it was clinically undetermined. 1. Sepsis ( ) Present On Admission ( ) Not Present On Admission ( x) Clinically Undetermined Thank you ROCIO Gutierrez CCS *Definition of the present on admission (POA)-Present on admission is defined as present at the time the order for inpatient admission occurs. Conditions that develop during an outpatient encounter prior to a written order for inpatient admission (including emergency department, observation, or outpatient surgery) are considered present on admission. MTDD
== END 2023-12-18 14:49 | DRG 871 ==
LOC: ED 13:11 → SUATTDRO 18:30 → 2N 18:30 → 1E 11-26 10:19 → 2S 12-01 14:45 → 1E 12-04 08:48 → 2E 12-06 20:00

== ENCOUNTER 2024-01-23 18:03 | Inpatient (IN) ==
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
[2024-01-23 20:56] LABS: Basophils # (auto) 0.05 K/uL (0.00-0.20); Basophils % (auto) 0.4 %; Eosinophils # (auto) 0.98 K/uL (0.00-0.50); Eosinophils % (auto) 8.3 %; Hematocrit (blood only) 39.7 % (42.0-52.0); Hemoglobin 13.8 g/dl (14.0-18.0); Immature Granulocytes # (auto) 0.04 K/uL (0.01-0.20); Immature Granulocytes % (auto) 0.3 %; Lymphocytes # (auto) 4.35 K/uL (1.20-3.40); Lymphocytes % (auto) 36.9 %; Mean Corpuscular Hgb Conc 34.8 g/dL (32.0-36.0); Mean Corpuscular Volume 97.8 fL (80.0-100.0); Mean Platelet Volume 9.3 fL (9.4-12.4); Monocytes # (auto) 0.94 K/uL (0.11-0.59); Neutrophils # (auto) 5.44 K/uL (1.40-6.50); Neutrophils % (auto) 46.1 %; Platelet Count 137 K/uL (130-400); RDW Coefficient of Variation 14.9 % (11.5-14.5); RDW Standard Deviation 53.6 fL (36.4-46.3); Red Blood Count 4.06 M/uL (4.70-6.10)
[2024-01-23 21:01] LABS: iSTAT Creatinine 0.7 mg/dl (0.6-1.3); iSTAT Hemoglobin 13.3 g/dl (14.0-18.0); iSTAT Ionized Calcium 1.25 mmol/l (1.12-1.32); iSTAT Potassium 4.2 mmol/L (3.3-5.0)
[2024-01-23] MEDS: ONDANSETRON INJ 2 MG/ML 2 ML VIAL IV STA (21:05)
[2024-01-23] MEDS: SODIUM CHLORIDE 0.9% 500 ML IV STA (21:05)
[2024-01-23] MEDS: MoRPHine SULFATE 4 MG/ML 1 ML CARP\\VIAL IV STA (21:07)
[2024-01-23] MEDS: ONDANSETRON INJ 2 MG/ML 2 ML VIAL ONE (21:08)
[2024-01-23 21:13] LABS: Albumin Globulin Ratio 1.1 (0.9-2); Albumin Level 3.4 gm/dl (3.4-5.0); Bilirubin,Total 0.3 mg/dl (0.2-1.0); Calcium 9.3 mg/dl (8.6-10.3); Est GFR (African American) 108.7 ml/min; Est GFR (Non-African American) 93.7 ml/min; Globulin 3.1 gm/dl (2.5-4.0); Potassium 4.2 mmol/L (3.5-5.1); Total Protein 6.5 gm/dl (6.0-8.3)
[2024-01-23 21:19] LABS: Troponin I High Sensitivity 5.1 pg/ml (0-20)
[2024-01-23 21:21] LABS: INR 3.9 (0.9-1.1); Prothrombin Time 37.2 Seconds (9.0-12.0)
[2024-01-23] MEDS: OPTIRAY 320 100ml IV ONE (21:49)
[2024-01-23] MEDS: DIVALPROEX DELAY RELEASE 500 MG TAB PO ONE (21:55)
[2024-01-23] MEDS: DIVALPROEX EXTENDED RELEASE 500 MG TAB PO ONE (22:27)
[2024-01-23 23:08] LABS: Appearance Urine Cloudy (Clear); Bacteria Urine Automated None Seen (None Seen); Bilirubin Urine Negative (Negative); Blood Urine Negative (Negative); Color Urine Yellow; Epithelial Cell Urine Auto 0-2 /hpf (0-2); Glucose Urine UA Negative (Negative); Ketones Urine Trace (Negative); Leukocyte Esterase Urine 2+ (Negative); Nitrite Urine Negative (Negative); Protein Urine 1+ (Negative); Specific Gravity Urine 1.045 (1.000-1.030); Urobilinogen Urine Negative (Negative); WBC Urine Automated >50 /hpf (0-5); pH Urine 5.5 (4.5-7.5)
--- NOTE | 2024-01-24 | XRay Report ---
SINGLE VIEW CHEST CLINICAL HISTORY: Vomiting FINDINGS: An AP, portable, upright chest radiograph is compared to study dated 01/18/2024. Correlation is made with chest CT dated 11/26/2023. The examination is degraded by portable technique, apical arpita dotic positioning, and patient rotation. The heart is mildly enlarged. The pulmonary vasculature is noncongested. There is mild elevation of the right hemidiaphragm with bibasilar scarring/atelectasis. No airspace consolidation or large pleural effusion is identified. No pneumothorax is seen. The skel etal structures are osteopenic. The bony thorax is grossly intact. IMPRESSION: Mild cardiomegaly with no acute cardiopulmonary abnormality identified. ACT 112: Negative or not required by law. Electronically signed by: Alfredo Cade M.D. 01/23/2024 11:58 PM
--- NOTE | 2024-01-24 00:30 | CT Scan Report ---
Exam(s): CT ABDOMEN + PELVIS With Contrast IV Amt: 92 cc opti 320 EXAM: CT Abdomen and Pelvis With Intravenous Contrast CLINICAL HISTORY: Reason for exam: sent by PCP for CT. TECHNIQUE: Axial computed tomography images of the abdomen and pelvis with intravenous contrast. CTDI is 28.02 mGy and DLP is 1753.27 mGy-cm. Automated exposure control was utilized for the study. A dose lowering technique was utilized adhering to the principles of ALARA. CONTRAST: Patient received 92 cc opti 320 of IV contrast COMPARISON: No relevant prior studies available. FINDINGS: Lung bases: Atelectasis at the lung bases. ABDOMEN: Liver: Unremarkable. No mass. Gallbladder and bile ducts: Unremarkable. No calcified stones. No ductal dilation. Pancreas: Unremarkable. No mass. No ductal dilation. Spleen: Unremarkable. No splenomegaly. Adrenals: Unremarkable. No mass. Kidneys and ureters: Unremarkable. No solid mass. No hydronephrosis. Stomach and bowel: Unremarkable. No obstruction. No mucosal thickening. PELVIS: Appendix: No findings to suggest acute appendicitis. Bladder: Wall thickening of the urinary bladder measures 7 mm, correlate for UTI. Reproductive: Unremarkable as visualized. ABDOMEN and PELVIS: Intraperitoneal space: Unremarkable. No free air. No significant fluid collection. Bones/joints: Fluid collection in the left retroperitoneum measures approximately 7.4 x 3.1 cm, extending from the left psoas muscle, concerning for a psoas abscess. MRI of the spine is recommended to exclude any osteomyelitis-discitis. No acute fracture. No dislocation. Soft tissues: Unremarkable. Vasculature: Unremarkable. No abdominal aortic aneurysm. Lymph nodes: Unremarkable. No enlarged lymph nodes. IMPRESSION: 1. Collection in the left retroperitoneum measures approximately 7.4 x 3. 1 cm, extending from the left psoas muscle, concerning for a psoas abscess. MRI of the spine is recommended to exclude any osteomyelitis-discitis. 2. Wall thickening of the urinary bladder measures 7 mm, correlate for UTI. Electronically signed by: Iggy Saleh MD 01/24/24 00:30 AM
[2024-01-24 00:35] LABS: Magnesium 1.5 mg/dl (1.7-2.4)
[2024-01-24] MEDS: cefTRIAXone SODIUM 2,000 MG/50 ML BAG IV STA (00:53)
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
[2024-01-24] MEDS ORDERED: ACETAMINOPHEN 325 MG TAB PO PRN (01:28)
[2024-01-24] MEDS ORDERED: PROMETHAZINE HCL 6.25 MG in SODIUM CHLORIDE 0.9% 50 ML IV PRN (01:28)
[2024-01-24] MEDS ORDERED: DEXTROSE 50% 50 ML SYRINGE IV PRN (02:32)
[2024-01-24] MEDS ORDERED: GLUCOSE 10 TAB/TUBE PO PRN (02:32)
[2024-01-24] MEDS ORDERED: GLUCAGON FOR INJ 1 MG VIAL SQ PRN (02:32)
[2024-01-24] MEDS ORDERED: GLUCOSE 40% GEL 15 GM TUBE PO PRN (02:32)
[2024-01-24] MEDS ORDERED: CARBOHYDRATES FOR HYPOGLYCEMIA PO PRN (02:32)
[2024-01-24] MEDS: SODIUM CHLORIDE 0.9% 1,000 ML IV ONE (02:37)
[2024-01-24] MEDS: MAGNESIUM SULFATE / D5W 1 GM/100 ML BAG IV SCH (02:44)
[2024-01-24] MEDS: INSULIN ASPART PER UNIT CHARGE SC SCH (02:48)
[2024-01-24] MEDS: oxyCODONE HCL IR 5 MG TAB (IMMEDIATE RELEASE) PO PRN (03:10)
[2024-01-24] MEDS: PIPER/TAZO 4.5g in D5W MINI-B 100 ML IV STA (03:12)
[2024-01-24] MEDS: DAPTOmycin 350 MG in SYRINGE 0 ML IV STA (03:12)
[2024-01-24] MEDS: LACTULOSE SYRUP 30 GM/45 ML UDP PO STA (03:12)
[2024-01-24] MEDS: PHYTONADIONE 5 MG TAB PO STA (03:12)
[2024-01-24 03:28] LABS: Albumin Level 3.7 gm/dl (3.4-5.0); BUN Creatinine Ratio 17.9 (10-20); Bilirubin,Total 0.3 mg/dl (0.2-1.0); Calcium 9.4 mg/dl (8.6-10.3); Creatinine Clr Calc Pharmacy 97.7 ml/min; Est GFR (Non-African American) 83.7 ml/min; Globulin 3.6 gm/dl (2.5-4.0); Total Protein 7.3 gm/dl (6.0-8.3)
[2024-01-24 03:32] LABS: Basophils # (auto) 0.02 K/uL (0.00-0.20); Basophils % (auto) 0.2 %; Eosinophils # (auto) 1.04 K/uL (0.00-0.50); Eosinophils % (auto) 11.4 %; Hematocrit (blood only) 44.4 % (42.0-52.0); Hemoglobin 14.9 g/dl (14.0-18.0); Immature Granulocytes # (auto) 0.03 K/uL (0.01-0.20); Immature Granulocytes % (auto) 0.3 %; Lymphocytes # (auto) 3.45 K/uL (1.20-3.40); Lymphocytes % (auto) 37.8 %; Mean Corpuscular Hemoglobin 33.3 pg (25.0-34.0); Mean Corpuscular Hgb Conc 33.6 g/dL (32.0-36.0); Mean Corpuscular Volume 99.3 fL (80.0-100.0); Mean Platelet Volume 9.2 fL (9.4-12.4); Monocytes # (auto) 0.41 K/uL (0.11-0.59); Monocytes % (auto) 4.5 %; Neutrophils # (auto) 4.18 K/uL (1.40-6.50); Neutrophils % (auto) 45.8 %; Platelet Count 157 K/uL (130-400); RDW Coefficient of Variation 15.2 % (11.5-14.5); RDW Standard Deviation 55.1 fL (36.4-46.3); Red Blood Count 4.47 M/uL (4.70-6.10); White Blood Count 9.13 K/ul (4.8-10.8)
[2024-01-24 03:42] LABS: INR 3.7 (0.9-1.1); Partial Thromboplastin Ratio 2.1; Partial Thromboplastin Time 56 Seconds (21-31)
[2024-01-24] MEDS: LACTULOSE SYRUP 10 GM/15 ML BTL 960 ML PO SCH (06:25)
--- NOTE | 2024-01-24 08:04 | CT Scan Report ---
Exam(s): CT HEAD Without Contrast EXAM: CT Head Without Intravenous Contrast CLINICAL HISTORY: Reason for exam: ams, coagulopathy. TECHNIQUE: Axial computed tomography images of the head/brain without intravenous contrast. CTDI is 62.44 mGy and DLP is 2546.09 mGy-cm. Automated exposure control was utilized for the study. A dose lowering technique was utilized adhering to the principles of ALARA. COMPARISON: No relevant prior studies available. FINDINGS: Limitations: The study is limited due to positioning and motion artifact. Brain: Unremarkable. No hemorrhage. No significant white matter disease. No edema. Ventricles: Unremarkable. No ventriculomegaly. Bones/joints: Unremarkable. No acute fracture. Soft tissues: Unremarkable. Sinuses: Unremarkable as visualized. No acute sinusitis. Mastoid air cells: Unremarkable as visualized. No mastoid effusion. IMPRESSION: Limited, no acute bleed mass or infarct as visualized. Electronically signed by: Aly Ventura MD 01/24/24 08:03 AM
[2024-01-24] MEDS: DAPTOmycin 250 MG in SYRINGE 0 ML IV ONE (09:56)
[2024-01-24] MEDS: PIPERACILLIN/TAZOBACTAM 4.5 GM in DEXTROSE 5% MINI-B 100 ML IV SCH (09:57)
[2024-01-24] MEDS: DOCUSATE SODIUM/SENNA 50/8.6MG TAB PO SCH (09:59)
[2024-01-24] MEDS: FLUCONAZOLE 100 MG TAB PO SCH (09:59)
[2024-01-24] MEDS: FINASTERIDE 5 MG TAB PO SCH (09:59)
[2024-01-24] MEDS: PANTOprazole 40 MG TAB PO SCH (09:59)
[2024-01-24] MEDS: MULTIVITAMIN TAB PO SCH (09:59)
[2024-01-24] MEDS: TOPIRAMATE 100 MG TAB PO SCH (09:59)
[2024-01-24] MEDS: allopurinoL 300 MG TAB PO SCH (09:59)
[2024-01-24] MEDS: DIVALPROEX DELAY RELEASE 500 MG TAB PO SCH (10:00)
[2024-01-24] MEDS: DICLOFENAC SOD 1% GEL 100 GM TUBE EXT SCH (10:00)
[2024-01-24] MEDS: LANTUS PER UNIT CHARGE SQ SCH (10:04)
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
--- NOTE | 2024-01-24 10:58 | Electrocardiogram Report ---
Test Reason : Blood Pressure : / mmHG Vent. Rate : 094 BPM Atrial Rate : 094 BPM P-R Int : 144 ms QRS Dur : 084 ms QT Int : 372 ms P-R-T Axes : 029 042 041 degrees QTc Int : 465 ms Normal sinus rhythm Normal ECG When compared with ECG of 18-JAN-2024 14:50, No significant change was found Confirmed by Jimmy Bradshaw ([id number]) on 01/24/2024 10:57:59 AM Referred By: REFERRED SELF Confirmed By:Jimmy Bradshaw
--- NOTE | 2024-01-24 11:03 | Electrocardiogram Report ---
Test Reason : Blood Pressure : / mmHG Vent. Rate : 105 BPM Atrial Rate : 111 BPM P-R Int : 000 ms QRS Dur : 084 ms QT Int : 514 ms P-R-T Axes : 000 055 042 degrees QTc Int : 679 ms Sinus tachycardia Prolonged QT Abnormal ECG When compared with ECG of 23-JAN-2024 18:56, (unconfirmed) QT has lengthened Confirmed by Jimmy Bradshaw ([id number]) on 01/24/2024 11:02:49 AM Referred By: REFERRED SELF Confirmed By:Jimmy Bradshaw
[2024-01-24] MEDS ORDERED: 0.2 MICRON FILTER SET 1 EACH IV ONE (12:07)
[2024-01-24] MEDS ORDERED: PHENYTOIN SOD INJ 50 MG/ML 5 ML VIAL IV SCH (12:15)
[2024-01-24] MEDS: GADOBUTROL 65ML VIAL IV ONE (12:37)
[2024-01-24] MEDS: VALPROATE SOD 1,000 MG in DEXTROSE 5% 100 ML IV SCH (13:38)
[2024-01-24] MEDS: SODIUM CHLORIDE 0.9% 10ML FLUSH IV STA (13:38)
--- NOTE | 2024-01-24 13:39 | Magnetic Resonance Report ---
MRI OF THE LUMBAR SPINE COMBO CLINICAL HISTORY: Low back pain. Clinical concern for epidural abscess. COMPARISON STUDY: CT of the lumbar spine dated 11/23/2023. MRI of the lumbar spine dated 04/09/2013. A bdominal CT scans dated 01/23/2024 and 12/06/2023. TECHNIQUE: MRI of the lumbar spine is performed utilizing various T1 and T2-weighted sequences in the axial and sagittal planes. Contrast-enhanced sequences are acquired following the IV administration of 10 mL of Gadavist. FINDINGS: Lumbar spine: Marrow signal intensity is heterogeneous. There is a mild chronic superior endplate com pression deformity of L3. Vertebral body height is otherwise maintained throughout the lumbar spine. Alignment is preserved. Anterior and lateral marginal osteophytes are seen throughout. The transverse and spinous processes appear intact. There is no evidence of spondylolysis. Small hemangiomas are no paul in the bodies of L2, L3, and S1. No destructive bony lesion is clearly seen. Chronic degenerative endplate change is seen at several levels, greatest at L2-L3. There is no significant endplate edema . Intervertebral discs: Disc desiccation and mild loss of height is seen throughout the lumbar spine. Spinal cord and central canal: The visualized spinal cord is normal in morphology and signal intensit y. The conus medullaris terminates at the L1-L2 interspace. The nerve roots of the cauda equina are n ormal in morphology. No abnormal postcontrast enhancement is seen. No epidural fluid collection is id entified. L1-L2: Unremarkable. L2-L3: There is minimal posterior disc bulge. The central canal and neural foramina are patent. Facet arthropathy is of no consequence. L3-L4: There is minimal posterior disc bulge. There is no significant central canal stenosis. Moderat e facet arthropathy is of no consequence. The central canal and neural foramina are patent. L4-L5: There is a small posterior disc bulge, which abuts the transiting nerve roots. There is no sig nificant central canal stenosis. Lateral disc bulges contribute to mild bilateral subarticular stenos is. Facet arthropathy is of no consequence. The neural foramina are patent. L5-S1: There is minimal posterior disc bulge with annular fissure. The central canal is clear. Predom inant facet arthropathy contributes to [id number] left neuroforaminal stenosis. The right neura l foramen is patent. Sacrum: The visualized sacrum is normal in morphology and signal intensity. Soft tissues: There is fatty atrophy of the paraspinous musculature. The right kidney is not identifi ed and presumed surgically absent. A fluid collection is partially visualized in the left retroperito rob space involving the left psoas musculature. Image portions measure up to 5 x 3.5 cm in axial dim ension. IMPRESSION: 1. No acute bony abnormality is seen involving the lumbar spine. 2. There is no MRI evidence of epidural abscess as clinically queried. 3. There is a mild chronic compression deformity of L3. 4. A complex and peripherally-enhancing fluid collection is partially visualized in the left retroper itoneal space. This involves the left psoas musculature and likely represents a resolving hematoma wh en correlated with prior abdominal CT scans. The sterility of this fluid cannot be assessed by imagin g and clinical correlation will be essential. 5. Mild spondylotic change as above. See discussion for detailed level by analysis. Dictated: 01/24/2024 1:00 PM Transcribed: 01/24/2024 1:23 PM Diego [id number] PRASANNA_Robert Electronically signed by: Alfredo Cade M.D. 01/24/2024 1:38 PM
[2024-01-24] MEDS: FOSPHENYTOIN IV SCH (13:48)
[2024-01-24] MEDS: SODIUM CHLORIDE IV SCH (13:48)
[2024-01-24] MEDS: CASPOFUNGIN 70 MG in SODIUM CHLORIDE 0.9% 250 ML IV ONE (14:44)
[2024-01-24] MEDS: ACETAMINOPHEN 1,000 MG/100 ML VIAL IV PRN (14:44)
--- NOTE | 2024-01-24 15:05 | Hospitalist Progress Note ---
Date of Service January 24, 2024 Assessment & Plan (1) Encephalopathy: (2) Psoas abscess, left: Plan: Patient is a 63-year-old male with past medical history of type 2 diabetes mellitus, hyperlipidemia venous insufficiency, history of liver failure, BPH, DVT in 2011 on coumadin, venous insufficiency, history of generalized convulsive epilepsy, history of a solitary kidney who presented to the hospital with confusion and lethargy for 1 week. Recent hospitalization from November 23 to December after mechanical fall. He was found to have closed T8 spinal fracture managed conservatively as per orthospine. He had nasal bone fracture; managed conservatively. He was intubated for aspiration pneumonia; received course of antibiotics for septic shock. On 12/02; patient was found to have retroperitoneal hematomas on left psoas muscle and left quadratus lumborum muscle after he was restarted on anticoagulation. He was given 2 units of packed RBC at that time. Furthermore, hospital course was complicated with acute DVT of right femoral vein. He was discharged on December 18, 2023 to subacute rehab. Recent ED visit was on January 21, 2024; found to have Mary glabrata in urine culture; he was started on fluconazole at SNF. Patient was brought here for o ngoing confusion and lethargy for last 1 week. Hemodynamically stable on presentation; febrile up to 38.6 C since admission. Saturating well on room air Leukocytosis present on admission with WBC count of 11,800 INR was supratherapeutic with 3.7 CT abdomen pelvis showed left lateral peritoneal collection of 7.4 X 3.1 cm; extending from left psoas muscle concerning for psoas abscess. Wall thickening of the urinary bladder measuring [address] headno acute finding Lumbar MRI did not show any acute bony abnormality involving the lumbar spine, no MRI evidence of epidural abscess. A complex peripheral enhancing fluid collection was seen measuring 5 into 3.5 cm. Patient currently on Zosyn and daptomycin. CK within normal limits. Patient is status post 2.5 mg IV vitamin K for reversal of supratherapeutic INR. Discussion was done with general surgery; it is questionable whether patient has resolving hematoma versus development of abscess. Initial plan was to monitor over the weekend. However, patient started to spike fever up to 38.6 C; continues to be lethargic. Further discussion was done with surgery again over the phone; they recommend earlier IR aspiration to rule out infection. No IR coverage available. Discussion done with transfer center at [facility] [place]; patient accepted for transfer. Images uploaded to [employer]. Patient was started on fluconazole at SNF for Mary glabrata UTI; switched over to Capsofungin given prolonged QTc. Hold Seroquel Antiseizure medication changed over to IV. Patient was previously on phenytoin 400 mg twice daily last admission. It was increased to 600 mg twice daily at SNF. Will continue on fosphenytoin 400 mg twice daily for now. Continue on iv valproic acid History of recurrent DVT : Coumadin on hold for possible IR procedure. needs to resumed as soon as possible. will place him on iv heparin if procedure id delayed Type DM II HbA1c of 7.5% last admission Basal/bolus insulin per protocol while in-patient BSG AC HS Seizure disorder Continue home Depakote, Dilantin and topiramate BLE neuropathy Gabapentin dose recently changed to 100mg TID BPH On Flomax and Proscar Bladder scan PRN Chronic lymphedema Chronic Venous insufficiency No open wounds Monitor for volume overload Gout Continue allopurinol Solitary kidney As per records Plan of care discussed with patient's sister multiple times throughout the day. Answer questions/queries Time spent evaluating patient, direct bedside care, chart review, placing orders, interpretation of diagnostic studies, discussion with consultants, patient, and family members, as well as other required patient management activities is 90 minutes Please note the above document was generated using voice recognition software. It may contain grammatical, syntax or spelling errors. Any formal questions or concerns about the content, text or information contained within the body of this dictation should be directly addressed to the provider for clarification Admission and Anticipated Discharge Date Admission Date: January 24, 2024 Subjective Patient seen and examined at bedside. He is sleepy; awake able by voice Reports some abdominal discomfort. Febrile to 38.6 C Review of Systems Review of Systems: Unobtainable due to reduced consciousness Physical Exam Physical Exam: GENERAL: Appears tired; lethargic; responds to voice. Not in respiratory distress CHEST : Decreased breath sounds at bases HEART : RRR, no obvious murmurs ABDOMEN: Some distention, no overt tenderness BACK : low back tenderness EXTREMITIES : Minimal LE swelling, no LE tenderness, no other conspicuous deformities noted NEUROLOGIC : Disoriented, no facial asymmetry; grossly moves all extremities Results & Data Results & Data Vital Signs (Past 12 Hours) Vital Signs Temp Pulse Pulse Resp BP Pulse Ox O2 Del Method 01/24/24 13:19 38.6 C H 70 16 106/59 L 97 Room Air 01/24/24 07:46 37.2 C 120 H 18 127/64 93 Room Air 01/24/24 04:46 89
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
[2024-01-24] MEDS: HYDROmorphone INJ 0.5 MG/0.5 ML SYR IV PRN (16:09)
[2024-01-24] MEDS: SODIUM CHLORIDE 0.9% 1,000 ML IV SCH (16:57)
[2024-01-24] MEDS ORDERED: QUEtiapine FUMARATE 25 MG TABLET PO SCH (21:00)
[2024-01-24] MEDS ORDERED: TAMSULOSIN HCL 0.4 MG CAP PO SCH (21:00)
[2024-01-25] MEDS ORDERED: DAPTOmycin 350 MG in SYRINGE 0 ML IV SCH (06:00)
[2024-01-25] MEDS ORDERED: DAPTOmycin 600 MG in SYRINGE 0 ML IV SCH (09:00)
[2024-01-25] MEDS ORDERED: CASPOFUNGIN 50 MG in SODIUM CHLORIDE 0.9% 250 ML IV SCH (14:00)
[2024-01-25] MEDS ORDERED: CASPOFUNGIN 70 MG in SODIUM CHLORIDE 0.9% 250 ML IV SCH (14:00)
== END 2024-01-24 20:38 | disposition short-term general hospital (02) | DRG 372 ==
LOC: ED 18:03 → 2N 01-24 01:23

== ENCOUNTER 2024-06-11 17:37 | Inpatient (IN) ==
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
[2024-06-11 20:34] LABS: Basophils # (auto) 0.04 K/uL (0.00-0.20); Basophils % (auto) 0.4 %; Eosinophils # (auto) 0.12 K/uL (0.00-0.50); Eosinophils % (auto) 1.1 %; Hematocrit (blood only) 35.7 % (42.0-52.0); Hemoglobin 11.8 g/dl (14.0-18.0); Immature Granulocytes # (auto) 0.08 K/uL (0.01-0.20); Immature Granulocytes % (auto) 0.7 %; Lymphocytes # (auto) 3.76 K/uL (1.20-3.40); Lymphocytes % (auto) 35.2 %; Mean Corpuscular Hemoglobin 31.8 pg (25.0-34.0); Mean Corpuscular Hgb Conc 33.1 g/dL (32.0-36.0); Mean Corpuscular Volume 96.2 fL (80.0-100.0); Mean Platelet Volume 11.3 fL (9.4-12.4); Monocytes # (auto) 1.05 K/uL (0.11-0.59); Monocytes % (auto) 9.8 %; Neutrophils # (auto) 5.64 K/uL (1.40-6.50); Neutrophils % (auto) 52.8 %; Platelet Count 94 K/uL (130-400); RDW Coefficient of Variation 14.8 % (11.5-14.5); RDW Standard Deviation 51.6 fL (36.4-46.3); Red Blood Count 3.71 M/uL (4.70-6.10); White Blood Count 10.69 K/ul (4.8-10.8)
[2024-06-11 20:51] LABS: Albumin Level 3.3 gm/dl (3.4-5.0); BUN Creatinine Ratio 31.2 (10-20); Bilirubin,Total 0.3 mg/dl (0.2-1.0); Creatinine Clr Calc Pharmacy 100.2 ml/min; Globulin 3.3 gm/dl (2.5-4.0); Potassium 3.9 mmol/L (3.5-5.1); Total Protein 6.6 gm/dl (6.0-8.3)
[2024-06-11 21:02] LABS: Prothrombin Time 11.3 Seconds (9.0-12.0)
[2024-06-11] MEDS: OPTIRAY 320 100ml IV ONE (21:49)
[2024-06-11] MEDS: ACETAMINOPHEN 1,000 MG/100 ML VIAL IV STA (23:33)
--- NOTE | 2024-06-12 00:22 | CT Scan Report ---
Exam(s): CT ABDOMEN + PELVIS With Contrast IV Amt: 91 ml opti 320 EXAM: CT Abdomen and Pelvis With Intravenous Contrast CLINICAL HISTORY: Reason for exam: abd pain, s/p drain for iliopsoas abscess. TECHNIQUE: Axial computed tomography images of the abdomen and pelvis with intravenous contrast. CTDI is 27.95 mGy and DLP is 1609.14 mGy-cm. Automated exposure control was utilized for the study. A dose lowering technique was utilized adhering to the principles of ALARA. CONTRAST: Patient received 91 ml opti 320 of IV contrast COMPARISON: 02/24/2024. FINDINGS: Motion artifact degrades image quality somewhat limiting the exam. Lung bases: There are bibasilar areas of atelectasis and/or scarring.. The heart contains coronary artery calcifications. ABDOMEN: Liver: The liver is enlarged and of diffuse decreased attenuation. Gallbladder and bile ducts: The gallbladder is distended. No calcified stones. No ductal dilation. Pancreas: No mass. No ductal dilation. Spleen: The spleen is mildly enlarged.. Adrenals: No mass. Kidneys and ureters: The patient is status post right nephrectomy. No evidence of the left hydronephrosis. There is a 1 cm rounded lucency. Stomach and bowel: There is air and fluid within the stomach. There is fluid, air and stool noted within the colon. No significantly distended loops of small bowel are identified.. PELVIS: Appendix: Unremarkable CT scan appearance noted the appendix.. Bladder: Urinary bladder is decompressed. No bladder calculi are seen.. Reproductive: Unremarkable as visualized. ABDOMEN and PELVIS: Intraperitoneal space: . No free air. No significant fluid collection. Bones/joints: There are degenerative changes in the spine and hips.. Soft tissues: There is inhomogeneity and enlargement involving the left posterior abdominal wall musculature. There are surrounding inflammatory changes. No discrete fluid collection is seen. Vasculature: No abdominal aortic aneurysm. Lymph nodes: No enlarged lymph nodes. IMPRESSION: There is inhomogeneity and enlargement involving the left posterior abdominal wall musculature. There are surrounding inflammatory changes. No abscess is seen. This appears similar to previous exam. The liver is enlarged and of diffuse decreased attenuation which may be due to fatty infiltration. Mild splenomegaly. There is a possible left renal cyst. Status post right nephrectomy. See discussion above Electronically signed by: Angel Perez MD 06/12/24 00:20 AM
[2024-06-12 01:06] LABS: Adenovirus F 40/41 PCR Not Detected (NotDetected); Astrovirus PCR Not Detected (NotDetected); Campylobacter PCR Not Detected (NotDetected); Cryptosporidium PCR Not Detected (NotDetected); Cyclospora cayetanensis PCR Not Detected (NotDetected); Entamoeba histolytica PCR Not Detected (NotDetected); Enteroaggregative E.coli(EAEC) Not Detected (NotDetected); Enteropathogenic E.coli (EPEC) Not Detected (NotDetected); Enterotoxigenic E.coli (ETEC) Not Detected (NotDetected); Giardia lamblia PCR Not Detected (NotDetected); Norovirus GI/GII PCR Not Detected (NotDetected); Plesiomonas shigelloides PCR Not Detected (NotDetected); Rotavirus A PCR Not Detected (NotDetected); Salmonella PCR Not Detected (NotDetected); Sapovirus PCR Not Detected (NotDetected); Shiga-like Toxin E.coli (STEC) Not Detected (NotDetected); Shigella/Enteroinvasive E.coli Not Detected (NotDetected); Vibrio cholerae PCR Not Detected (NotDetected); Vibrio species PCR Not Detected (NotDetected); Yersinia enterocolitica PCR Not Detected (NotDetected)
[2024-06-12] MEDS: DOXYCYCLINE HYCLATE 100 MG in DEXTROSE 5% MINI-B 100 ML IV STA (01:25)
[2024-06-12] MEDS: SODIUM CHLORIDE 0.9% 1,000 ML IV SCH (01:26)
[2024-06-12] MEDS: MoRPHine SULFATE 2 MG/ML CARP IV STA (01:32)
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
[2024-06-12] MEDS ORDERED: PROMETHAZINE 6.25 MG/50.25 ML BAG IV PRN (01:55)
[2024-06-12] MEDS: rifAXIMin 550 MG TABLET PO SCH (03:21)
[2024-06-12] MEDS: OLANZapine 5 MG TABLET PO STA (03:21)
[2024-06-12] MEDS: LACTULOSE SYRUP 30 GM/45 ML UDP PO STA (03:22)
[2024-06-12] MEDS: SODIUM CHLORIDE 0.9% 1,000 ML IV ONE (03:33)
--- NOTE | 2024-06-12 03:36 | CT Scan Report ---
EXAM: CT head/brain wo con CLINICAL HISTORY: [facility] INPATIENT TECHNIQUE: An axial non-contrast CT scan of the brain was performed from the skull base to the high parietal region with coronal and sagittal reformats. Coronal and sagittal reconstructive images were also obtained. One of the following dose reduction techniques was utilized for this exam: Automated exposure control, adjustment of the mA and/or kV according to patient size, use of iterative reconstruction. COMPARISON: 01/24/2024. FINDINGS: The study is suboptimal due to motion artifacts. Brain: Unremarkable. No hemorrhage. No significant white matter disease. No edema. Ventricles: Unremarkable. No acute hydrocehpahlic changes. Bones/joints: Unremarkable. No acute fracture. Soft tissues: Unremarkable. Sinuses: Unremarkable as visualized. No acute sinusitis. Mastoid air cells: Unremarkable as visualized. No mastoid effusion. IMPRESSION: 1. No evidence of established territorial infarction, intracranial or extracranial hemorrhage. MRI would be helpful for further evaluation if clincially indicated. 2. No interval changes. Electronically signed by Anni Samuel 06-12-2024 03:36 AM
[2024-06-12 03:55] LABS: Basophils # (auto) 0.04 K/uL (0.00-0.20); Basophils % (auto) 0.4 %; Eosinophils # (auto) 0.13 K/uL (0.00-0.50); Eosinophils % (auto) 1.4 %; Hematocrit (blood only) 38.9 % (42.0-52.0); Immature Granulocytes # (auto) 0.09 K/uL (0.01-0.20); Lymphocytes # (auto) 2.87 K/uL (1.20-3.40); Lymphocytes % (auto) 31.4 %; Mean Corpuscular Hemoglobin 32.3 pg (25.0-34.0); Mean Corpuscular Hgb Conc 33.4 g/dL (32.0-36.0); Mean Corpuscular Volume 96.8 fL (80.0-100.0); Mean Platelet Volume 9.2 fL (9.4-12.4); Monocytes # (auto) 0.51 K/uL (0.11-0.59); Monocytes % (auto) 5.6 %; Neutrophils # (auto) 5.49 K/uL (1.40-6.50); Neutrophils % (auto) 60.2 %; Platelet Count 161 K/uL (130-400); RDW Coefficient of Variation 14.8 % (11.5-14.5); Red Blood Count 4.02 M/uL (4.70-6.10); White Blood Count 9.13 K/ul (4.8-10.8)
[2024-06-12] MEDS: oxyCODONE HCL IR 5 MG TAB (IMMEDIATE RELEASE) PO PRN (04:05)
[2024-06-12 04:08] LABS: Albumin Level 3.4 gm/dl (3.4-5.0); BUN Creatinine Ratio 35.4 (10-20); Bilirubin,Total 0.3 mg/dl (0.2-1.0); Calcium 9.1 mg/dl (8.6-10.3); Globulin 3.5 gm/dl (2.5-4.0); Potassium 3.6 mmol/L (3.5-5.1); Total Protein 6.9 gm/dl (6.0-8.3)
[2024-06-12] MEDS ORDERED: GLUCOSE 10 TAB/TUBE PO PRN (05:21)
[2024-06-12] MEDS ORDERED: DEXTROSE 50% 50 ML SYRINGE IV PRN (05:21)
[2024-06-12] MEDS ORDERED: CARBOHYDRATES FOR HYPOGLYCEMIA PO PRN (05:21)
[2024-06-12] MEDS ORDERED: GLUCOSE 40% GEL 15 GM TUBE PO PRN (05:21)
[2024-06-12] MEDS ORDERED: GLUCAGON FOR INJ 1 MG VIAL SQ PRN (05:21)
[2024-06-12] MEDS: INSULIN ASPART PER UNIT CHARGE SC SCH (05:48)
[2024-06-12] MEDS ORDERED: OLANZapine 10 MG/2.1 ML SDV IM PRN (05:56)
[2024-06-12] MEDS: OLANZapine 10 MG/2.1 ML SDV IM STA (06:06)
[2024-06-12 06:13] LABS: Appearance Urine Cloudy (Clear); Bacteria Urine Automated None Seen (None Seen); Bilirubin Urine Negative (Negative); Blood Urine Negative (Negative); Cast Urine Automated 0-2 /lpf (0-2); Color Urine Yellow; Epithelial Cell Urine Auto 0-2 /hpf (0-2); Glucose Urine UA Negative (Negative); Ketones Urine Trace (Negative); Leukocyte Esterase Urine 2+ (Negative); Nitrite Urine Negative (Negative); Protein Urine Trace (Negative); RBC Urine Automated 0-2 /hpf (0-2); Specific Gravity Urine 1.044 (1.000-1.030); Urobilinogen Urine Negative (Negative); WBC Urine Automated >50 /hpf (0-5); pH Urine 5.5 (4.5-7.5)
[2024-06-12] MEDS: LANTUS PER UNIT CHARGE SQ SCH (11:32)
[2024-06-12] MEDS: ACETAMINOPHEN 500 MG TAB PO PRN (11:34)
[2024-06-12] MEDS: allopurinoL 300 MG TAB PO SCH (11:37)
[2024-06-12] MEDS: DOCUSATE SODIUM 100 MG CAP PO SCH (11:40)
[2024-06-12] MEDS: DICLOFENAC SOD 1% GEL 100 GM TUBE EXT SCH (11:40)
[2024-06-12] MEDS: APIXABAN 5 MG TABLET PO SCH (11:40)
[2024-06-12] MEDS: MULTIVITAMIN TAB PO SCH (11:42)
[2024-06-12] MEDS: LACTULOSE SYRUP 30 GM/45 ML UDP PO SCH (11:42)
[2024-06-12] MEDS: PANTOprazole 40 MG TAB PO SCH (11:43)
[2024-06-12] MEDS: TOPIRAMATE 100 MG TAB PO SCH (11:43)
[2024-06-12] MEDS: 4.5GM X1 IV STA (11:44)
--- NOTE | 2024-06-12 13:27 | Electrocardiogram Report ---
Test Reason : Blood Pressure : */* mmHG Vent. Rate : 90 BPM Atrial Rate : 90 BPM P-R Int : 152 ms QRS Dur : 82 ms QT Int : 346 ms P-R-T Axes : 32 51 94 degrees QTcB Int : 423 ms Poor data quality, interpretation may be adversely affected Sinus rhythm Low voltage QRS Nonspecific ST and T wave abnormality Abnormal ECG When compared with ECG of 24-Jan-2024 05:27, Nonspecific T wave abnormality, worse in Inferior leads QT has shortened Confirmed by Jimmy Bradshaw ([id number]) on 06/12/2024 1:27:24 PM Referred By: [facility] Confirmed By: Jimmy Bradshaw
[2024-06-12] MEDS: GABAPENTIN 100 MG CAP PO SCH (14:23)
[2024-06-12] MEDS: DIVALPROEX EXTENDED RELEASE 500 MG TAB PO SCH ×2 (14:33→22:43)
--- NOTE | 2024-06-12 16:03 | Communication Note ---
Date of Service: June 12, 2024 Please refer to the H&P dictated earlier this morning for details of presentation on admission. In brief, the patient presented with altered mental status. Of note he has baseline learning disability. Per sister, he is conversant normally but just a little bit "slow". Currently the patient is tearful and "not himself". Depakote levels are normal thus Depakote was resumed as the patient says that he is dependent on it to prevent seizures. Dilantin level pending. Ammonia levels have improved. He is being treated for a skin and soft tissue infection as well as UTI with doxycycline and Zosyn. Urine culture pending. Abdominal CT did not show any internal abscess.. Will hold gabapentin due to altered mental status. Spoke to sister and her at the bedside to update them about the plan.. Spoke to nurse.
[2024-06-12] MEDS: PIPERACILLIN/TAZOBACTAM 4.5 GM/100 ML BAG IV SCH (17:32)
[2024-06-12] MEDS: ACETAMINOPHEN 1,000 MG/100 ML VIAL IV STA (19:27)
[2024-06-12] MEDS: ATORVASTATIN 40 MG TAB PO SCH (22:43)
[2024-06-12] MEDS: TAMSULOSIN HCL 0.4 MG CAP PO SCH (22:44)
[2024-06-12] MEDS: GABAPENTIN 400 MG CAP PO SCH (22:44)
[2024-06-12] MEDS: DOXYCYCLINE HYCLATE 100 MG CAP PO SCH (22:44)
[2024-06-12] MEDS: QUEtiapine FUMARATE 25 MG TABLET PO SCH (22:44)
[2024-06-13] MEDS: MoRPHine SULFATE 2 MG/ML CARP IV PRN (00:20)
[2024-06-13 00:41] LABS: Hematocrit (blood only) 35.4 % (42.0-52.0); Mean Corpuscular Hgb Conc 33.9 g/dL (32.0-36.0); Mean Corpuscular Volume 94.4 fL (80.0-100.0); Mean Platelet Volume 9.2 fL (9.4-12.4); Platelet Count 152 K/uL (130-400); RDW Coefficient of Variation 14.8 % (11.5-14.5); RDW Standard Deviation 50.5 fL (36.4-46.3); Red Blood Count 3.75 M/uL (4.70-6.10); White Blood Count 14.31 K/ul (4.8-10.8)
[2024-06-13 00:58] LABS: Albumin Globulin Ratio 1.1 (0.9-2); Bilirubin,Total 0.4 mg/dl (0.2-1.0); Calcium 8.7 mg/dl (8.6-10.3); Creatinine Clr Calc Pharmacy 86.9 ml/min; Globulin 2.8 gm/dl (2.5-4.0); Potassium 3.6 mmol/L (3.5-5.1); Total Protein 5.8 gm/dl (6.0-8.3)
[2024-06-13] MEDS: SODIUM CHLORIDE 0.9% 1,000 ML IV SCH (11:13)
[2024-06-13] MEDS: oxyCODONE HCL IR 5 MG TAB (IMMEDIATE RELEASE) PO PRN (11:13)
--- NOTE | 2024-06-13 14:46 | Hospitalist Progress Note ---
Date of Service June 13, 2024 Assessment & Plan (1) Encephalopathy: Plan: Encephalopathy Multifactorial Hepatic encephalopathy may have played a role. Ammonia level has normalized. Continue lactulose and rifaximin Medication induced. On Depakote and Dilantin for seizure disorder. Depakote resumed. Dilantin level pending. Dilantin is being held until level returns Infectious etiology. Likely with elevated white count, fever. On doxycycline and Zosyn. The patient has a skin lesion that is draining pus. CT abdomen was negative for internal abscess. Plan to repeat CT abdomen with contrast tomorrow after IV hydration today Clinically improved today. Does not seem to be in distress anymore. But still not back to baseline, per sister Patient has baseline cognitive impairment and learning disability Reduce the dose of gabapentin Seizure disorder Stable per family Continue Depakote. Levels normal. Hold Dilantin. Levels pending Continue Topamax Insulin-dependent diabetes mellitus On Lantus 5 units and sliding scale insulin 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 On Eliquis. Continue DVT prophylaxis. Eliquis Full code Patient sister requesting updates from providers. Lo Esparza, contact #[phone]. Admission and Anticipated Discharge Date Admission Date: June 12, 2024 Subjective Patient was seen and examined at 11:25 AM. He was accompanied by his sister and her at the bedside. He was accompanied by the nurse at the bedside as well. Per nurse and sister, the patient is improved today. He is not tearful or in distress. Per sister however, he is still not back to his usual baseline. Review of Systems Review of Systems: All systems reviewed & are unremarkable except as noted in Subjective Physical Exam Physical Exam: General: Awake, able to answer simple questions. Able to smile at me today. Heart: S1, S2/regular rate and rhythm, no murmur rubs or gallops Lungs: Clear to auscultation bilaterally. Normal effort Abdomen: Soft/nontender/nondistended. No hepatosplenomegaly. Purulent drainage from skin lesion in left side of his back. Extremities: No clubbing/cyanosis. No edema Behavior: Appropriate, cooperative Results & Data Results & Data Vital Signs (Past 12 Hours) Vital Signs Temp Pulse Pulse Resp BP BP Pulse Ox 06/13/24 12:04 36.8 C 108 H 18 110/68 98 06/13/24 09:00 06/13/24 07:47 37.1 C 108 H 18 123/70 98 06/13/24 07:13 105 H 06/13/24 02:50 36.6 C 106 H 18 121/65 99 O2 Del Method 06/13/24 12:04 Room Air 06/13/24 09:00 Room Air 06/13/24 07:47 Room Air 06/13/24 07:13 06/13/24 02:50 Room Air Laboratory Results Abnormal lab results 06/12/24 06/12/24 06/13/24 Range/Units 17:07 20:12 00:29 WBC 14.31 H (4.8-10.8) K/ul RBC 3.75 L (4.70-6.10) M/uL Hgb 12.0 L (14.0-18.0) g/dl Hct 35.4 L (42.0-52.0) % RDW Std Deviation 50.5 H (36.4-46.3) fL RDW Coeff of Pepper 14.8 H (11.5-14.5) % MPV 9.2 L (9.4-12.4) fL Chloride 114 H (98-107) mmol/L BUN 27 H (6-23) mg/dl BUN/Creatinine Ratio 26.0 H (10-20) Glucose 139 H (70-99(Fasting)) mg/dl POC Glucose 237 H 205 H (70-99) mg/dl Ammonia 86.0 H (18-72) umol/L Total Protein 5.8 L (6.0-8.3) gm/dl Albumin 3.0 L (3.4-5.0) gm/dl 06/13/24 06/13/24 Range/Units 08:14 12:19 WBC (4.8-10.8) K/ul RBC (4.70-6.10) M/uL Hgb (14.0-18.0) g/dl Hct (42.0-52.0) % RDW Std Deviation (36.4-46.3) fL RDW Coeff of Pepper (11.5-14.5) % MPV (9.4-12.4) fL Chloride (98-107) mmol/L BUN (6-23) mg/dl BUN/Creatinine Ratio (10-20) Glucose (70-99(Fasting)) mg/dl POC Glucose 184 H 215 H (70-99) mg/dl Ammonia (18-72) umol/L Total Protein (6.0-8.3) gm/dl Albumin (3.4-5.0) gm/dl PG Care Time/CCT Total # of Minutes Spent Total Time Spent with Patient: Total time spent is greater than 50% in coordination of care (as documented) at patient's floor/unit and/or counseling patient: Coding Level of Care Code 32258 SUB INP/OBS CARE 2/35MIN Diagnoses Encephalopathy G93.40
[2024-06-13] MEDS: MELATONIN 3 MG TAB PO PRN (20:56)
[2024-06-14 09:41] LABS: Basophils # (auto) 0.04 K/uL (0.00-0.20); Basophils % (auto) 0.3 %; Eosinophils # (auto) 0.88 K/uL (0.00-0.50); Eosinophils % (auto) 7.7 %; Hematocrit (blood only) 32.9 % (42.0-52.0); Hemoglobin 11.2 g/dl (14.0-18.0); Immature Granulocytes # (auto) 0.05 K/uL (0.01-0.20); Immature Granulocytes % (auto) 0.4 %; Lymphocytes % (auto) 13.1 %; Mean Corpuscular Hemoglobin 32.3 pg (25.0-34.0); Mean Corpuscular Volume 94.8 fL (80.0-100.0); Mean Platelet Volume 9.2 fL (9.4-12.4); Monocytes % (auto) 5.2 %; Neutrophils # (auto) 8.39 K/uL (1.40-6.50); Neutrophils % (auto) 73.3 %; Platelet Count 131 K/uL (130-400); RDW Coefficient of Variation 14.8 % (11.5-14.5); RDW Standard Deviation 51.2 fL (36.4-46.3); Red Blood Count 3.47 M/uL (4.70-6.10); White Blood Count 11.46 K/ul (4.8-10.8)
[2024-06-14 09:56] LABS: BUN Creatinine Ratio 30.1 (10-20); Calcium 8.1 mg/dl (8.6-10.3); Creatinine Clr Calc Pharmacy 97.3 ml/min; Potassium 3.5 mmol/L (3.5-5.1)
[2024-06-14] MEDS: OPTIRAY 320 100ml IV ONE (11:35)
--- NOTE | 2024-06-14 12:22 | CT Scan Report ---
CT OF THE ABDOMEN AND PELVIS WITH CONTRAST CLINICAL HISTORY: eval L back muscle abscess. draining pus COMPARISON STUDY: CT of the abdomen and pelvis June 11, 2024. TECHNIQUE: Following IV administration of 93 mL of Optiray, axial images of the abdomen and pelvis we re obtained from the lung bases to the proximal femurs. Images were reviewed in the axial, sagittal, and coronal planes. IV contrast was administered without complication. Automated exposure control wa s utilized for the study. A dose lowering technique was utilized adhering to the principles of ALARA . CT DOSE: 1703.88 mGy.cm FINDINGS: There are trace bilateral pleural effusions. Subpleural opacities favor atelectasis althoug h an infectious process could appear similar. There may be mild interlobular septal thickening. Gallb ladder distention is unchanged. There is no pericholecystic infiltration. Liver, spleen, adrenal glan ds and pancreas are unremarkable. There is no abnormality within the right nephrectomy bed. A 1.4 cm left lower pole renal cyst is noted. There is no left hydronephrosis. A previous percutaneous drain t ract within the left flank is noted with associated enhancement. There is ill-defined enhancement pos terior to the left kidney, involving the overlying abdominal wall, extending into the left psoas musc le. This focus measures 4.9 x 3.5 cm. This is unchanged since CT of June 11, 2024. A small amount of associated fluid is noted. However, there is no loculated rim-enhancing fluid collection to sugges t an abscess. Adjacent stranding is present. Trace presacral edema is present. There is no evidence f or a bowel obstruction. There is no evidence for acute appendicitis. Prominent ileocolic lymph nodes are again noted. IMPRESSION: 1. Ill-defined focus of enhancement with mild associated stranding and fluid within the musculature p osterior to the left kidney with involvement of the left psoas muscle. This is at site of previously drained fluid collection. The findings favor an infectious process with phlegmon although fat necrosi s could appear similar. No drainable fluid collection on this study. 2. No abnormality within the right nephrectomy bed. No left hydronephrosis. 3. No bowel obstruction. No bowel wall thickening. 4. Trace bilateral pleural effusions. Lower lung opacities favor atelectasis although an infectious p rocess could appear similar. ACT 112: Negative or not required by law. Electronically signed by: Omari Foreman M.D. 06/14/2024 12:19 PM
--- NOTE | 2024-06-14 14:52 | Hospitalist Progress Note ---
Date of Service June 14, 2024 Assessment & Plan (1) Encephalopathy: Plan: Encephalopathy Multifactorial Hepatic encephalopathy may have played a role. Ammonia level has normalized. Continue lactulose and rifaximin Medication induced. On Depakote and Dilantin for seizure disorder. Depakote resumed. Dilantin level still pending. Dilantin is being held until level returns Infectious etiology. Likely with elevated white count, fever. On doxycycline and Zosyn. The patient has a skin lesion that is draining pus. CT abdomen was negative for internal abscess. Repeated CT abdomen with contrast after IV hydration today 06/14. No changes noted. Clinically improved today. Does not seem to be in distress anymore. But still not back to baseline, per sister White count improved from 14-11 Patient has baseline cognitive impairment and learning disability Reduce the dose of gabapentin Seizure disorder Stable per family Continue Depakote. Levels normal. Hold Dilantin. Levels pending Continue Topamax Insulin-dependent diabetes mellitus On Lantus 5 units and sliding scale insulin 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 On Eliquis. Continue DVT prophylaxis. Eliquis Full code Patient sister requesting updates from providers. Lo Esparza, contact #[phone]. Admission and Anticipated Discharge Date Admission Date: June 12, 2024 Subjective Per nurse, patient is not crying today. He is awake and is able to hold a conversation. Still not making a lot of sense but improved compared to the last few days. Sister at the bedside says that he appears better overall and his mentation has improved but not back to his baseline. Review of Systems Review of Systems: All systems reviewed & are unremarkable except as noted in Subjective Physical Exam Physical Exam: General: Awake, able to answer simple questions. Able to smile at me today. Able to hold a conversation but not making sense all the time. Heart: S1, S2/regular rate and rhythm, no murmur rubs or gallops Lungs: Clear to auscultation bilaterally. Normal effort Abdomen: Soft/nontender/nondistended. No hepatosplenomegaly. Purulent drainage from skin lesion in left side of his back. Extremities: No clubbing/cyanosis. No edema Behavior: Appropriate, cooperative Results & Data Results & Data Vital Signs (Past 12 Hours) Vital Signs Temp Pulse Pulse Resp BP BP Pulse Ox 06/14/24 11:21 36.6 C 93 H 18 109/66 98 06/14/24 07:30 06/14/24 07:30 36.7 C 96 H 18 102/61 98 06/14/24 07:18 91 H O2 Del Method 06/14/24 11:21 Room Air 06/14/24 07:30 Room Air 06/14/24 07:30 Room Air 06/14/24 07:18 Laboratory Results Abnormal lab results 06/13/24 06/13/24 06/14/24 Range/Units 17:19 20:13 08:07 WBC (4.8-10.8) K/ul RBC (4.70-6.10) M/uL Hgb (14.0-18.0) g/dl Hct (42.0-52.0) % RDW Std Deviation (36.4-46.3) fL RDW Coeff of Pepper (11.5-14.5) % MPV (9.4-12.4) fL Neut # (Auto) (1.40-6.50) K/uL [place] # (Auto) (0.11-0.59) K/uL Eos # (Auto) (0.00-0.50) K/uL Chloride (98-107) mmol/L Carbon Dioxide (21-32) mmol/L BUN (6-23) mg/dl BUN/Creatinine Ratio (10-20) Glucose (70-99(Fasting)) mg/dl POC Glucose 164 H 184 H 194 H (70-99) mg/dl Calcium (8.6-10.3) mg/dl 06/14/24 06/14/24 Range/Units 09:27 12:00 WBC 11.46 H (4.8-10.8) K/ul RBC 3.47 L (4.70-6.10) M/uL Hgb 11.2 L (14.0-18.0) g/dl Hct 32.9 L (42.0-52.0) % RDW Std Deviation 51.2 H (36.4-46.3) fL RDW Coeff of Pepper 14.8 H (11.5-14.5) % MPV 9.2 L (9.4-12.4) fL Neut # (Auto) 8.39 H (1.40-6.50) K/uL [place] # (Auto) 0.60 H (0.11-0.59) K/uL Eos # (Auto) 0.88 H (0.00-0.50) K/uL Chloride 110 H (98-107) mmol/L Carbon Dioxide 20 L (21-32) mmol/L BUN 28 H (6-23) mg/dl BUN/Creatinine Ratio 30.1 H (10-20) Glucose 197 H (70-99(Fasting)) mg/dl POC Glucose 226 H (70-99) mg/dl Calcium 8.1 L (8.6-10.3) mg/dl PG Care Time/CCT Total # of Minutes Spent Total Time Spent with Patient: Total time spent is greater than 50% in coordination of care (as documented) at patient's floor/unit and/or counseling patient: Coding Level of Care Code 59384 SUB INP/OBS CARE 2/35MIN Diagnoses Encephalopathy G93.40
[2024-06-14 23:27] VITALS: RESP 18
[2024-06-15 06:36] LABS: Basophils # (auto) 0.03 K/uL (0.00-0.20); Basophils % (auto) 0.4 %; Eosinophils # (auto) 0.65 K/uL (0.00-0.50); Eosinophils % (auto) 7.7 %; Immature Granulocytes # (auto) 0.06 K/uL (0.01-0.20); Immature Granulocytes % (auto) 0.7 %; Lymphocytes # (auto) 1.66 K/uL (1.20-3.40); Lymphocytes % (auto) 19.8 %; Mean Corpuscular Hemoglobin 31.9 pg (25.0-34.0); Mean Corpuscular Hgb Conc 33.3 g/dL (32.0-36.0); Mean Corpuscular Volume 95.7 fL (80.0-100.0); Mean Platelet Volume 9.5 fL (9.4-12.4); Monocytes # (auto) 0.51 K/uL (0.11-0.59); Monocytes % (auto) 6.1 %; Neutrophils # (auto) 5.48 K/uL (1.40-6.50); Neutrophils % (auto) 65.3 %; Platelet Count 138 K/uL (130-400); RDW Coefficient of Variation 14.6 % (11.5-14.5); RDW Standard Deviation 51.6 fL (36.4-46.3); Red Blood Count 3.45 M/uL (4.70-6.10); White Blood Count 8.39 K/ul (4.8-10.8)
[2024-06-15 06:58] LABS: BUN Creatinine Ratio 29.3 (10-20); Creatinine Clr Calc Pharmacy 98.5 ml/min; Potassium 3.2 mmol/L (3.5-5.1)
[2024-06-15] MEDS: LORATADINE 10 MG TAB PO PRN (07:57)
[2024-06-15] MEDS: PHENYTOIN SODIUM ER 100 MG CAP PO SCH (10:58)
[2024-06-15] MEDS: AMOXICILLIN/CLAVULANATE 875 MG TAB PO SCH (16:00)
--- NOTE | 2024-06-15 16:28 | Hospitalist Progress Note ---
Date of Service June 15, 2024 Assessment & Plan (1) Encephalopathy: Plan: Suspected acute metabolic encephalopathy present on admission. He appears now to be back in his baseline. Supportive care . He may have had a component of hepatic encephalopathy also. Ammonia level has normalized. He continues on lactulose and rifaximin. (2) Cutaneous abscess of back excluding buttocks: Plan: He appears to have an infected draining sebaceous cyst left lower back. CT scan negative for fistulous tract between the back and the psoas muscle. (3) Hyperammonemia: Plan: Now normalized. Continue lactulose and rifaximin (4) Cognitive dysfunction: Plan: Congenital. Supportive care (5) Seizure disorder: Plan: Continue Depakote. Dilantin level is still pending but Dilantin has been restarted to prevent recurrent seizure activity (6) Type 2 diabetes mellitus: Plan: ADA diet. Basal insulin therapy. Sliding scale coverage as needed. 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 No new problems at this time. Dilantin level still pending. Dilantin has been restarted to prevent recurrent seizures however. He is a bed hold at [facility] and likely will return tomorrow, June 16. Fortunately the CT scan reveals no fistulous connection between the superficial left lower back draining sebaceous cyst infection and the previous psoas muscle hematoma that required drainage. Doxycycline and Zosyn switched over to oral Augmentin. Review of Systems 2 Review of Systems: Constitutionalno fever or chills ENTno blurred vision, no double vision, no epistaxis, no sore throat Respiratoryno cough, no wheezing, no shortness of breath Cardiacno palpitations, no chest pain, no syncope Marielena nausea, vomiting, diarrhea, melena, hematochezia GUno urinary retention, no urinary incontinence, no dysuria, no hematuria Musculoskeletalno joint pain, no muscle tenderness Skininfected draining sebaceous cyst left lower posterior back. Neurono isolated weakness, no paresthesia. Baseline mild cognitive impairment Psychno depression, no anxiety Physical Exam 2 Physical Exam: General-awake and alert. No fever HEENT-head atraumatic and normocephalic, pupils equal and reactive to light, extraocular muscles intact Neck-no lymphadenopathy or thyromegaly, trachea midline Chest-clear to auscultation. No rales, wheezing or rhonchi Cardiac-regular rate and rhythm, normal S1 and S2 Abdomen-normal bowel sounds, no hepatosplenomegaly Extremities-no cyanosis, clubbing, or edema Skindraining infected sebaceous cyst left lower back area Neuro-cranial nerves II through XII intact, motor and sensory function within normal limits, strength symmetrical with generalized weakness, no focal deficits Psych-normal affect, normal mood. Baseline cognitive dysfunction Results & Data Results & Data Vital Signs (Past 12 Hours) Vital Signs Temp Pulse Pulse Resp BP Pulse Ox O2 Del Method 06/15/24 11:33 36.7 C 70 18 125/75 94 Room Air 06/15/24 07:46 92 H 06/15/24 07:38 36.4 C L 97 H 18 121/84 97 Room Air 06/15/24 07:25 92 H Laboratory Results 06/15/24 06:05 06/15/24 06:05 PG Care Time/CCT Total # of Minutes Spent Total Time Spent with Patient: Total time spent is greater than 50% in coordination of care (as documented) at patient's floor/unit and/or counseling patient: Coding Level of Care Code 47455 SUB INP/OBS CARE 3/50MIN Diagnoses Encephalopathy G93.40 Cutaneous abscess of back excluding buttocks L02.212 Hyperammonemia E72.20 Cognitive dysfunction F09 Seizure disorder G40.909 Type 2 diabetes mellitus E11.9 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
[2024-06-16 08:12] LABS: Basophils # (auto) 0.03 K/uL (0.00-0.20); Basophils % (auto) 0.4 %; Eosinophils # (auto) 0.63 K/uL (0.00-0.50); Eosinophils % (auto) 9.1 %; Hematocrit (blood only) 29.8 % (42.0-52.0); Hemoglobin 10.2 g/dl (14.0-18.0); Immature Granulocytes # (auto) 0.04 K/uL (0.01-0.20); Immature Granulocytes % (auto) 0.6 %; Lymphocytes # (auto) 2.44 K/uL (1.20-3.40); Lymphocytes % (auto) 35.3 %; Mean Corpuscular Hemoglobin 31.9 pg (25.0-34.0); Mean Corpuscular Hgb Conc 34.2 g/dL (32.0-36.0); Mean Corpuscular Volume 93.1 fL (80.0-100.0); Mean Platelet Volume 9.2 fL (9.4-12.4); Monocytes # (auto) 0.48 K/uL (0.11-0.59); Monocytes % (auto) 6.9 %; Neutrophils % (auto) 47.7 %; Platelet Count 130 K/uL (130-400); RDW Coefficient of Variation 14.6 % (11.5-14.5); RDW Standard Deviation 50.1 fL (36.4-46.3); White Blood Count 6.92 K/ul (4.8-10.8)
[2024-06-16 08:24] LABS: BUN Creatinine Ratio 35.1 (10-20); Creatinine Clr Calc Pharmacy 122.4 ml/min; Potassium 3.4 mmol/L (3.5-5.1)
[2024-06-16 11:13] VITALS: TEMP 98.8; O2SAT 96
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
[2024-06-16 12:13] VITALS: BP 134/76; PULSE 95
== END 2024-06-16 12:38 | DRG 602 ==
LOC: ED 17:37 → SUATTDRO 06-12 01:54 → 2N 06-12 01:54 → 2W 06-12 07:54

== ENCOUNTER 2024-06-25 17:58 | Inpatient (IN) ==
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
[2024-06-25 19:46] LABS: Alanine Aminotransferase 28 U/L (7-52); Albumin Level 3.4 gm/dl (3.4-5.0); Alkaline Phosphatase 141 U/L (34-104); BUN Creatinine Ratio 17.9 (10-20); Bilirubin,Total 0.2 mg/dl (0.2-1.0); Blood Urea Nitrogen 15 mg/dl (6-23); Calcium 8.7 mg/dl (8.6-10.3); Carbon Dioxide 20 mmol/L (21-32); Chloride 104 mmol/L (98-107); Creatinine Clr Calc Pharmacy 107.6 ml/min; Globulin 3.3 gm/dl (2.5-4.0); Glucose 174 mg/dl (70-99(Fasting)); Thyroid Stimulating Hormone 2.282 uIu/ml (0.300-4.500); Total Protein 6.7 gm/dl (6.0-8.3); Troponin I High Sensitivity 4.8 pg/ml (0-20)
[2024-06-25 19:47] LABS: Basophils # (auto) 0.03 K/uL (0.00-0.20); Basophils % (auto) 0.3 %; Eosinophils # (auto) 0.13 K/uL (0.00-0.50); Eosinophils % (auto) 1.4 %; Hematocrit (blood only) 36.2 % (42.0-52.0); Hemoglobin 12.3 g/dl (14.0-18.0); Immature Granulocytes # (auto) 0.06 K/uL (0.01-0.20); Immature Granulocytes % (auto) 0.6 %; Lymphocytes # (auto) 2.18 K/uL (1.20-3.40); Lymphocytes % (auto) 23.5 %; Mean Corpuscular Hemoglobin 32.5 pg (25.0-34.0); Mean Corpuscular Volume 95.5 fL (80.0-100.0); Mean Platelet Volume 9.7 fL (9.4-12.4); Monocytes # (auto) 0.62 K/uL (0.11-0.59); Monocytes % (auto) 6.7 %; Neutrophils # (auto) 6.25 K/uL (1.40-6.50); Neutrophils % (auto) 67.5 %; Platelet Count 123 K/uL (130-400); RDW Coefficient of Variation 16.1 % (11.5-14.5); RDW Standard Deviation 56.2 fL (36.4-46.3); Red Blood Count 3.79 M/uL (4.70-6.10); White Blood Count 9.27 K/ul (4.8-10.8)
[2024-06-25 19:59] LABS: Adenovirus PCR Not Detected (NotDetected); Bordetella parapertussis PCR Not Detected (NotDetected); Bordetella pertussis PCR Not Detected (NotDetected); Chlamydia pneumoniae PCR Not Detected (NotDetected); Coronavirus 229E PCR Not Detected (NotDetected); Coronavirus CoV-2 (COVID19)PCR Not Detected (NotDetected); Coronavirus HKU1 PCR Not Detected (NotDetected); Coronavirus NL63 PCR Not Detected (NotDetected); Coronavirus OC43PCR Not Detected (NotDetected); Human Metapneumovirus PCR Not Detected (NotDetected); Influenza A PCR Not Detected (NotDetected); Influenza B PCR Not Detected (NotDetected); Mycoplasma pneumoniae PCR Not Detected (NotDetected); Parainfluenza Virus 1 PCR DETECTED (NotDetected); Parainfluenza Virus 2 PCR Not Detected (NotDetected); Parainfluenza Virus 3 PCR Not Detected (NotDetected); Parainfluenza Virus 4 PCR Not Detected (NotDetected); Respiratory Syncytial VirusPCR Not Detected (NotDetected); Rhinovirus/Enterovirus PCR Not Detected (NotDetected)
[2024-06-25] MEDS: OPTIRAY 320 100ml IV ONE (20:12)
--- NOTE | 2024-06-25 20:13 | XRay Report ---
Exam(s): XR CXR 1 VIEW EXAM: XR Chest, 1 View CLINICAL HISTORY: Reason for exam: confusion. TECHNIQUE: Frontal view of the chest. COMPARISON: 01/23/24 FINDINGS: Lungs: Subsegmental atelectasis seen medially in the right lung base. Pleural space: Unremarkable. No pneumothorax. Heart: Unremarkable. No cardiomegaly. Mediastinum: Unremarkable. Normal mediastinal contour. Bones/joints: Unremarkable. No acute fracture. IMPRESSION: No evidence of pulmonary edema or pneumonia Electronically signed by: Raul Granados MD 06/25/24 20:12 PM
--- NOTE | 2024-06-25 20:46 | CT Scan Report ---
Exam(s): CT ABDOMEN + PELVIS With Contrast IV Amt: 94 ml optiray 320 EXAM: CT Abdomen and Pelvis With Intravenous Contrast CLINICAL HISTORY: Reason for exam: generalized abdominal pain. TECHNIQUE: Axial computed tomography images of the abdomen and pelvis with intravenous contrast. CTDI is 34.54 mGy and DLP is 1978 mGy-cm. Automated exposure control was utilized for the study. A dose lowering technique was utilized adhering to the principles of ALARA. CONTRAST: Patient received 94 ml optiray 320 of IV contrast COMPARISON: No relevant prior studies available. FINDINGS: Lung bases: Discoid atelectasis seen in the lower lobes. ABDOMEN: Liver: Unremarkable. No mass. Gallbladder and bile ducts: Unremarkable. No calcified stones. No ductal dilation. Pancreas: Unremarkable. No mass. No ductal dilation. Spleen: Mild splenomegaly. Adrenals: Unremarkable. No mass. Kidneys and ureters: Solitary left kidney. No hydronephrosis. Stomach and bowel: Generous amount of fluid is seen in the colonic lumen. Moderate amount of fecal matter seen in the distal sigmoid colon and rectum he comes. No obstruction. No mucosal thickening. PELVIS: Appendix: No findings to suggest acute appendicitis. Bladder: Unremarkable. No mass. Reproductive: Unremarkable as visualized. ABDOMEN and PELVIS: Intraperitoneal space: Unremarkable. No free air. No significant fluid collection. Bones/joints: No acute fracture. No dislocation. Moderate osteoarthritic changes seen at the hip joints. Mild degenerative disc disease changes seen in the lumbar spine. Soft tissues: 5.4 cm omental fat-containing epigastric ventral hernia. Vasculature: Unremarkable. No abdominal aortic aneurysm. Lymph nodes: Unremarkable. No enlarged lymph nodes. IMPRESSION: Moderate amount of fecal matter in the sigmoid colon and rectum with mild fluid distention of the more proximal colonic lumen Electronically signed by: Raul Granados MD 06/25/24 20:45 PM
[2024-06-25 21:16] LABS: Magnesium 1.6 mg/dl (1.7-2.4); Potassium 3.9 mmol/L (3.5-5.1)
[2024-06-25 21:33] LABS: INR 1.2 (0.9-1.1); Prothrombin Time 12.8 Seconds (9.0-12.0)
[2024-06-25] MEDS: MAGNESIUM SULFATE / D5W 1 GM/100 ML BAG IV STA (21:43)
[2024-06-25 22:39] LABS: Appearance Urine Clear (Clear); Bilirubin Urine Negative (Negative); Blood Urine Negative (Negative); Color Urine Yellow; Glucose Urine UA Negative (Negative); Ketones Urine Negative (Negative); Leukocyte Esterase Urine Negative (Negative); Nitrite Urine Negative (Negative); Protein Urine Negative (Negative); Specific Gravity Urine 1.018 (1.000-1.030); Urobilinogen Urine Negative (Negative); pH Urine 6.5 (4.5-7.5)
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
[2024-06-26] MEDS: DAPTOmycin 375 MG in SYRINGE 0 ML IV SCH (00:08)
[2024-06-26] MEDS: 4.5GM X1 IV STA (00:42)
[2024-06-26] MEDS ORDERED: GLUCOSE 40% GEL 15 GM TUBE PO PRN (01:42)
[2024-06-26] MEDS ORDERED: GLUCAGON FOR INJ 1 MG VIAL SQ PRN (01:42)
[2024-06-26] MEDS ORDERED: LORATADINE 10 MG TAB PO PRN (01:42)
[2024-06-26] MEDS ORDERED: GLUCOSE 10 TAB/TUBE PO PRN (01:42)
[2024-06-26] MEDS ORDERED: CARBOHYDRATES FOR HYPOGLYCEMIA PO PRN (01:42)
[2024-06-26] MEDS ORDERED: DEXTROSE 50% 50 ML SYRINGE IV PRN (01:42)
[2024-06-26] MEDS ORDERED: PROMETHAZINE HCL INJ 25 MG/ML 1 ML VIAL IM PRN (01:42)
[2024-06-26] MEDS: oxyCODONE HCL IR 5 MG TAB (IMMEDIATE RELEASE) PO PRN (03:25)
[2024-06-26] MEDS: ACETAMINOPHEN 325 MG TAB PO PRN (04:01)
[2024-06-26] MEDS: PIPERACILLIN/TAZOBACTAM 4.5 GM/100 ML BAG IV SCH (06:10)
[2024-06-26] MEDS ORDERED: LACTULOSE SYRUP 30 GM/45 ML UDP PO SCH (09:00)
[2024-06-26] MEDS: APIXABAN 5 MG TABLET PO SCH (10:00)
[2024-06-26] MEDS: allopurinoL 300 MG TAB PO SCH (10:00)
[2024-06-26] MEDS: LACTULOSE SYRUP 30 GM/45 ML UDP PO SCH (10:00)
[2024-06-26] MEDS: CALCIUM 600MG + VIT D 400 IU TAB PO SCH (10:01)
[2024-06-26] MEDS: rifAXIMin 550 MG TABLET PO SCH (10:01)
[2024-06-26] MEDS: MULTIVITAMIN TAB PO SCH (10:01)
[2024-06-26] MEDS: CHOLECALCIFEROL 25 MCG (1000 UNITS) TAB PO SCH (10:01)
[2024-06-26] MEDS: PANTOprazole 40 MG TAB PO SCH (10:02)
[2024-06-26] MEDS: GABAPENTIN 100 MG CAP PO SCH (10:02)
[2024-06-26] MEDS: DIVALPROEX EXTENDED RELEASE 500 MG TAB PO SCH ×2 (10:03→15:45)
[2024-06-26] MEDS: TOPIRAMATE 100 MG TAB PO SCH (10:03)
[2024-06-26] MEDS: FINASTERIDE 5 MG TAB PO SCH (10:03)
[2024-06-26] MEDS: PHENYTOIN SODIUM ER 100 MG CAP PO SCH (10:04)
[2024-06-26] MEDS: DOCUSATE SODIUM 100 MG CAP PO SCH (10:14)
[2024-06-26] MEDS: POTASSIUM CHLORIDE CRTAB 20 MEQ TABCR PO SCH (10:14)
[2024-06-26] MEDS: INSULIN ASPART PER UNIT CHARGE SC SCH (10:31)
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
[2024-06-26] MEDS: FUROSEMIDE 20 MG TAB PO SCH (10:51)
[2024-06-26 10:57] LABS: Basophils # (auto) 0.02 K/uL (0.00-0.20); Basophils % (auto) 0.1 %; Eosinophils # (auto) 0.04 K/uL (0.00-0.50); Eosinophils % (auto) 0.3 %; Hematocrit (blood only) 43.2 % (42.0-52.0); Hemoglobin 14.8 g/dl (14.0-18.0); Immature Granulocytes # (auto) 0.13 K/uL (0.01-0.20); Immature Granulocytes % (auto) 0.9 %; Lymphocytes # (auto) 1.25 K/uL (1.20-3.40); Lymphocytes % (auto) 8.3 %; Mean Corpuscular Hemoglobin 33.2 pg (25.0-34.0); Mean Corpuscular Hgb Conc 34.3 g/dL (32.0-36.0); Mean Corpuscular Volume 96.9 fL (80.0-100.0); Monocytes # (auto) 0.18 K/uL (0.11-0.59); Monocytes % (auto) 1.2 %; Neutrophils # (auto) 13.43 K/uL (1.40-6.50); Neutrophils % (auto) 89.2 %; Nucleated RBC # (auto) 0.02 K/uL (0.00-0.12); Nucleated RBC % (auto) 0.1 %; Platelet Count 81 K/uL (130-400); RDW Coefficient of Variation 16.3 % (11.5-14.5); RDW Standard Deviation 58.3 fL (36.4-46.3); Red Blood Count 4.46 M/uL (4.70-6.10); White Blood Count 15.05 K/ul (4.8-10.8)
[2024-06-26 11:35] LABS: Estimated Average Glucose 140 mg/dl; Hemoglobin A1C 6.5 % (4.5-5.6)
[2024-06-26] MEDS: PERFLUTREN LIPID MICROSPHERE (DEFINITY) IV ONE (14:30)
--- NOTE | 2024-06-26 14:57 | Electrocardiogram Report ---
Test Reason : Blood Pressure : */* mmHG Vent. Rate : 104 BPM Atrial Rate : 104 BPM P-R Int : 138 ms QRS Dur : 86 ms QT Int : 340 ms P-R-T Axes : 39 59 49 degrees QTcB Int : 447 ms Sinus tachycardia Nonspecific ST abnormality When compared with ECG of 11-Jun-2024 17:49, Artifact is no longer present Confirmed by Ahsan Proctor ([id number]) on 06/26/2024 2:57:21 PM Referred By: REFERRED SELF Confirmed By: Ahsan Proctor
--- NOTE | 2024-06-26 15:32 | Ultrasound Report ---
LEFT LOWER EXTREMITY VENOUS DOPPLER CLINICAL HISTORY: Left leg pain and swelling. Evaluate for DVT. COMPARISON STUDY: Bilateral lower extremity venous Doppler ultrasound December 12, 2023. TECHNIQUE: Sonography of the deep venous system of the left lower extremity was performed. Compressi on and augmentation were evaluated. FINDINGS: The left common femoral vein is patent. Deep venous thrombus within the left superficial fe moral, popliteal, posterior tibial, peroneal and anterior tibial veins is noted. Thrombus is increase d in extent when compared to ultrasound of December 22, 2023. Stranding within several vessels is again no paul. The findings suggest acute or chronic deep venous thrombus. IMPRESSION: Deep venous thrombus within the left superficial femoral, popliteal, posterior tibial, pe roneal and anterior tibial veins, increased in extent since prior ultrasound. These findings favor ac [place] on chronic deep venous thrombus within the left lower extremity. ACT 112: Negative or not required by law. Electronically signed by: Omari Foreman M.D. 06/26/2024 3:29 PM
--- NOTE | 2024-06-26 15:56 | Hospitalist Progress Note ---
Date of Service June 26, 2024 Assessment & Plan (1) Psoas abscess, left: Plan: Retroperitoneal/left psoas muscle hematoma complicated by abscess status postdrainage in January. Was treated with IV antibiotics Recent admission from 06/12 to 06/16: There was some purulent discharge from the back. Was thought to be a subcutaneous cyst and was discharged on p.o. Augmentin Currently increased drainage from the same location General surgery consulted. This was abscess appears improved and is self draining. No surgical intervention warranted Was started on daptomycin and Zosyn upon admission 06/25 Consult infectious disease TTE ruled out vegetations although technically difficult study Blood cultures ordered Wound cultures ordered (2) Encephalopathy: Plan: Patient with notable cognitive impairment regarding disability Multifactorial in the setting of parainfluenza and left psoas abscess, sepsis History of hepatic encephalopathy. Continue lactulose. Ammonia level normal on admission Depakote level pending No seizure echo shows UA negative (3) DVT (deep venous thrombosis): Plan: Patient was on p.o. Eliquis Patient was at [facility]. Likely good compliance Currently has an acute on chronic left lower extremity DVT Discontinue Eliquis Switch to IV heparin drip Use caution because of a history of intramuscular hematoma and low platelet count (4) Parainfluenza type 1 infection: Plan: Respiratory bio fire came back positive for parainfluenza 1 Isolation precautions Supportive treatment (5) Hypomagnesemia: Plan: Repleted (6) Sepsis: Plan: Patient meets criteria for sepsis Most likely due to left psoas abscess plus parainfluenza type I infection (7) Seizure disorder: Plan: Continue home valproate, phenytoin, Topamax Levels ordered, pending (8) T2DM (type 2 diabetes mellitus): Plan: Hold home medications Continue sliding scale Admission and Anticipated Discharge Date Admission Date: June 25, 2024 Subjective Patient was seen and examined at 11:20 AM. I know this patient from his last hospitalization. During that hospitalization, he had similar presentation with metabolic encephalopathy, fever. After I left service, his mental status came back to baseline and was discharged. Patient came back with fever, vomiting, generalized abdominal pain, altered mental status. Per family there is increased drainage and redness in the left side of his back. Review of Systems Review of Systems: Unobtainable due to cognitive status Physical Exam Physical Exam: General: Awake, confused. Not able to hold a conversation. Appears restless. Wanting to get out of bed. Heart: S1, S2/regular rate and rhythm, no murmur rubs or gallops Lungs: Clear to auscultation bilaterally. Normal effort Abdomen: Soft/nontender/nondistended. No hepatosplenomegaly Extremities: No clubbing/cyanosis. Left lower extremity edema Behavior: Appropriate, cooperative Results & Data Results & Data Vital Signs (Past 12 Hours) Vital Signs Temp Pulse Pulse Resp BP Pulse Ox O2 Del Method 06/26/24 15:36 37.7 C H 108 H 20 115/67 94 Room Air 06/26/24 15:01 115 H 06/26/24 12:18 36.7 C 115 H 18 91/48 L 93 Room Air 06/26/24 08:14 36.8 C 96 H 20 92/54 L 95 Room Air 06/26/24 05:55 108 H 06/26/24 05:18 37.2 C 114 H 12 95/57 L 93 Room Air 06/26/24 04:00 38.4 C H 135 H 16 159/77 H 91 Room Air Laboratory Results Abnormal lab results 06/25/24 06/25/24 06/25/24 Range/Units 18:35 19:27 20:34 WBC (4.8-10.8) K/ul RBC 3.79 L (4.70-6.10) M/uL Hgb 12.3 L (14.0-18.0) g/dl Hct 36.2 L (42.0-52.0) % RDW Std Deviation 56.2 H (36.4-46.3) fL RDW Coeff of Pepper 16.1 H (11.5-14.5) % Plt Count 123 L (130-400) K/uL Neut # (Auto) (1.40-6.50) K/uL [place] # (Auto) 0.62 H (0.11-0.59) K/uL PT 12.8 H (9.0-12.0) Seconds INR 1.2 H (0.9-1.1) Sodium 135 L (136-145) mmol/L Carbon Dioxide 20 L (21-32) mmol/L Glucose 174 H (70-99(Fasting)) mg/dl POC Glucose (70-99) mg/dl Hemoglobin A1c 6.5 H (4.5-5.6) % Magnesium 1.6 L (1.7-2.4) mg/dl Alkaline Phosphatase 141 H (34-104) U/L Valproic Acid (50-100) mcg/ml Parainfluenza 1 (PCR) DETECTED A (NotDetected) 06/25/24 06/26/24 06/26/24 Range/Units 23:44 10:41 11:47 WBC 15.05 H (4.8-10.8) K/ul RBC 4.46 L (4.70-6.10) M/uL Hgb (14.0-18.0) g/dl Hct (42.0-52.0) % RDW Std Deviation 58.3 H (36.4-46.3) fL RDW Coeff of Pepper 16.3 H (11.5-14.5) % Plt Count 81 L (130-400) K/uL Neut # (Auto) 13.43 H (1.40-6.50) K/uL [place] # (Auto) (0.11-0.59) K/uL PT (9.0-12.0) Seconds INR (0.9-1.1) Sodium (136-145) mmol/L Carbon Dioxide (21-32) mmol/L Glucose (70-99(Fasting)) mg/dl POC Glucose 201 H (70-99) mg/dl Hemoglobin A1c (4.5-5.6) % Magnesium (1.7-2.4) mg/dl Alkaline Phosphatase (34-104) U/L Valproic Acid 47 L (50-100) mcg/ml Parainfluenza 1 (PCR) (NotDetected) Diagnostic Findings Chest X-Ray 06/25/24 18:13 Exam(s): XR CXR 1 VIEW EXAM: XR Chest, 1 View CLINICAL HISTORY: Reason for exam: confusion. TECHNIQUE: Frontal view of the chest. COMPARISON: 01/23/24 FINDINGS: Lungs: Subsegmental atelectasis seen medially in the right lung base. Pleural space: Unremarkable. No pneumothorax. Heart: Unremarkable. No cardiomegaly. Mediastinum: Unremarkable. Normal mediastinal contour. Bones/joints: Unremarkable. No acute fracture. IMPRESSION: No evidence of pulmonary edema or pneumonia Electronically signed by: Raul Granados MD 06/25/24 20:12 PM Abdomen/Pelvis CT 06/25/24 19:35 Exam(s): CT ABDOMEN + PELVIS With Contrast IV Amt: 94 ml optiray 320 EXAM: CT Abdomen and Pelvis With Intravenous Contrast CLINICAL HISTORY: Reason for exam: generalized abdominal pain. TECHNIQUE: Axial computed tomography images of the abdomen and pelvis with intravenous contrast. CTDI is 34.54 mGy and DLP is 1978 mGy-cm. Automated exposure control was utilized for the study. A dose lowering technique was utilized adhering to the principles of ALARA. CONTRAST: Patient received 94 ml optiray 320 of IV contrast COMPARISON: No relevant prior studies available. FINDINGS: Lung bases: Discoid atelectasis seen in the lower lobes. ABDOMEN: Liver: Unremarkable. No mass. Gallbladder and bile ducts: Unremarkable. No calcified stones. No ductal dilation. Pancreas: Unremarkable. No mass. No ductal dilation. Spleen: Mild splenomegaly. Adrenals: Unremarkable. No mass. Kidneys and ureters: Solitary left kidney. No hydronephrosis. Stomach and bowel: Generous amount of fluid is seen in the colonic lumen. Moderate amount of fecal matter seen in the distal sigmoid colon and rectum he comes. No obstruction. No mucosal thickening. PELVIS: Appendix: No findings to suggest acute appendicitis. Bladder: Unremarkable. No mass. Reproductive: Unremarkable as visualized. ABDOMEN and PELVIS: Intraperitoneal space: Unremarkable. No free air. No significant fluid collection. Bones/joints: No acute fracture. No dislocation. Moderate osteoarthritic changes seen at the hip joints. Mild degenerative disc disease changes seen in the lumbar spine. Soft tissues: 5.4 cm omental fat-containing epigastric ventral hernia. Vasculature: Unremarkable. No abdominal aortic aneurysm. Lymph nodes: Unremarkable. No enlarged lymph nodes. IMPRESSION: Moderate amount of fecal matter in the sigmoid colon and rectum with mild fluid distention of the more proximal colonic lumen Electronically signed by: Raul Granados MD 06/25/24 20:45 PM Venous Doppler Study 06/26/24 13:43 LEFT LOWER EXTREMITY VENOUS DOPPLER CLINICAL HISTORY: Left leg pain and swelling. Evaluate for DVT. COMPARISON STUDY: Bilateral lower extremity venous Doppler ultrasound December 11. TECHNIQUE: Sonography of the deep venous system of the left lower extremity was performed. Compression and augmentation were evaluated. FINDINGS: The left common femoral vein is patent. Deep venous thrombus within the left superficial femoral, popliteal, posterior tibial, peroneal and anterior tibial veins is noted. Thrombus is increased in extent when compared to ultrasound of December 22, 2023. Stranding within several vessels is again noted. The findings suggest acute or chronic deep venous thrombus. IMPRESSION: Deep venous thrombus within the left superficial femoral, popliteal, posterior tibial, peroneal and anterior tibial veins, increased in extent since prior ultrasound. These findings favor acute on chronic deep venous thrombus within the left lower extremity. ACT 112: Negative or not required by law. Electronically signed by: Omari Foreman M.D. 06/26/2024 3:29 PM PG Care Time/CCT Total # of Minutes Spent Total Time Spent with Patient: Total time spent is greater than 50% in coordination of care (as documented) at patient's floor/unit and/or counseling patient: Coding Level of Care Code 32121 SUB INP/OBS CARE 2/35MIN Diagnoses Psoas abscess, left K68.12 Encephalopathy G93.40 DVT (deep venous thrombosis) I82.409 Parainfluenza type 1 infection B34.8 Hypomagnesemia E83.42 Sepsis A41.9 Seizure disorder G40.909 T2DM (type 2 diabetes mellitus) E11.9
[2024-06-26] MEDS: HEPARIN SODIUM/DEXTROSE 25,000 UNITS/500 ML BAG IV SCH (17:21)
[2024-06-26] MEDS: Heparin IV Adult Wt-Based Standard *NO* INITIAL Bolus Protocol IV STA (17:28)
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
[2024-06-26] MEDS: ACETAMINOPHEN 325 MG TAB PO ONE (20:21)
[2024-06-26] MEDS: QUEtiapine FUMARATE 25 MG TABLET PO SCH (20:24)
[2024-06-26] MEDS: GABAPENTIN 400 MG CAP PO SCH (20:24)
[2024-06-26] MEDS: ATORVASTATIN 40 MG TAB PO SCH (20:25)
[2024-06-26] MEDS: TAMSULOSIN HCL 0.4 MG CAP PO SCH (20:25)
[2024-06-26 21:14] LABS: Alanine Aminotransferase 24 U/L (7-52); Albumin Globulin Ratio 1.1 (0.9-2); Albumin Level 3.2 gm/dl (3.4-5.0); Alkaline Phosphatase 106 U/L (34-104); BUN Creatinine Ratio 16.6 (10-20); Bilirubin,Total 2.9 mg/dl (0.2-1.0); Blood Urea Nitrogen 33 mg/dl (6-23); Calcium 8.3 mg/dl (8.6-10.3); Carbon Dioxide 17 mmol/L (21-32); Chloride 105 mmol/L (98-107); Creatinine Clr Calc Pharmacy 45.4 ml/min; Globulin 2.8 gm/dl (2.5-4.0); Glucose 188 mg/dl (70-99(Fasting))
[2024-06-27] MEDS: LACTATED RINGER'S 1,000 ML IV SCH (00:14)
[2024-06-27 01:08] LABS: Potassium 4.2 mmol/L (3.5-5.1)
[2024-06-27 01:38] LABS: ANTI-Xa, UFH(UnfractionatedHep 1.02 IU/ml (0.3-0.7)
[2024-06-27] MEDS: LACTATED RINGER'S 700 ML IV ONE (02:35)
[2024-06-27] MEDS: LACTATED RINGER'S 1,000 ML IV ONE (03:57)
--- NOTE | 2024-06-27 05:52 | Billing Data ---
Date of Service June 27, 2024 Coding Level of Care Code 05153 INT INP/OBS CARE
[2024-06-27 07:23] LABS: Basophils # (auto) 0.04 K/uL (0.00-0.20); Basophils % (auto) 0.3 %; Eosinophils # (auto) 1.16 K/uL (0.00-0.50); Eosinophils % (auto) 9.1 %; Hematocrit (blood only) 35.3 % (42.0-52.0); Hemoglobin 12.1 g/dl (14.0-18.0); Immature Granulocytes # (auto) 0.07 K/uL (0.01-0.20); Immature Granulocytes % (auto) 0.5 %; Lymphocytes # (auto) 1.48 K/uL (1.20-3.40); Lymphocytes % (auto) 11.6 %; Mean Corpuscular Hgb Conc 34.3 g/dL (32.0-36.0); Mean Corpuscular Volume 96.2 fL (80.0-100.0); Mean Platelet Volume 11.2 fL (9.4-12.4); Monocytes # (auto) 0.26 K/uL (0.11-0.59); Neutrophils # (auto) 9.74 K/uL (1.40-6.50); Neutrophils % (auto) 76.5 %; Platelet Count 52 K/uL (130-400); RDW Coefficient of Variation 16.3 % (11.5-14.5); RDW Standard Deviation 58.8 fL (36.4-46.3); Red Blood Count 3.67 M/uL (4.70-6.10); White Blood Count 12.75 K/ul (4.8-10.8)
[2024-06-27 08:12] LABS: ANTI-Xa, UFH(UnfractionatedHep 0.96 IU/ml (0.3-0.7)
[2024-06-27 08:37] LABS: BUN Creatinine Ratio 15.3 (10-20); Calcium 8.3 mg/dl (8.6-10.3); Creatinine Clr Calc Pharmacy 32.9 ml/min; Potassium 4.5 mmol/L (3.5-5.1)
[2024-06-27] MEDS: SODIUM CHLORIDE 0.9% 1,000 ML IV SCH (09:31)
--- NOTE | 2024-06-27 14:45 | Hospitalist Progress Note ---
Date of Service June 27, 2024 Assessment & Plan (1) Encephalopathy: Plan: 63 y/o male with known cognitive impairment and learning disability As per family patient with increased confusion since yesterday Patient had a fever on [facility] care - Multifactorial, metabolic encephalopathy in the setting of parainfluenza and current cutaneous abscess - Hepatic encephalopathy on lactulose - Admit to Med/Surge with telemetry - No signs of sepsis, no leukocytosis - UA normal - CXR: No evidence of pulmonary edema or pneumonia - No seizures episodes - TSH normal - Ammonia level ordered - Depakote level ordered - Blood culture - wound culture - IV abx - CBC, CMP, Mag replace in AM (2) Psoas abscess, left: Plan: Retroperitoneal/left psoas muscle abscess status post drainage Recent admission was treated with IV abx and sent home with Augmentin Abscess with increased purulent drainage and erythema Abd/Pelvic CT: Moderate amount of fecal matter in the sigmoid colon and rectum with mild fluid distention of the more proximal colonic lumen IV Daptomycin and IV Zosyn started Wound culture sent (3) Hypomagnesemia: Plan: Mag 1.6 1 g Mag replaced ED MAG AM (4) Parainfluenza type 1 infection: Plan: Continue supportives measures (5) Seizure disorder: Plan: continue home Valproate, Phenytoin, topiramate Levels ordered it (6) Type 2 diabetes mellitus: Plan: Hold home meds Sliding scale coverage as needed. 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 He has been moaning and tearful. Patient has baseline intellectual disability and he becomes altered with moaning and tearfulness every time he has an infection. Review of Systems Review of Systems: All systems reviewed & are unremarkable except as noted in Subjective Physical Exam Physical Exam: General: Awake, confused. Not able to hold a conversation. Moaning, tearful Heart: S1, S2/regular rate and rhythm, no murmur rubs or gallops Lungs: Clear to auscultation bilaterally. Normal effort Abdomen: Soft/nontender/nondistended. No hepatosplenomegaly. Purulent drainage noted on the left back cutaneous lesion Extremities: No clubbing/cyanosis. Left lower extremity edema Behavior: Cooperative but not appropriate. Results & Data Results & Data Vital Signs (Past 12 Hours) Vital Signs Temp Pulse Pulse Resp BP BP Pulse Ox 06/27/24 13:00 93 H 06/27/24 12:13 37.8 C H 97 H 16 110/64 97 06/27/24 09:48 106 H 22 103/62 92 06/27/24 09:14 37.0 C 105 H 16 92/60 L 94 06/27/24 08:28 37.2 C 108 H 16 120/70 93 06/27/24 07:48 06/27/24 06:03 98 H 06/27/24 05:00 89 16 94/54 L 06/27/24 04:10 36.8 C 89 18 85/42 L 93 O2 Del Method 06/27/24 13:00 06/27/24 12:13 Room Air 06/27/24 09:48 Room Air 06/27/24 09:14 Room Air 06/27/24 08:28 Room Air 06/27/24 07:48 Room Air 06/27/24 06:03 06/27/24 05:00 06/27/24 04:10 Room Air PG Care Time/CCT Total # of Minutes Spent Total Time Spent with Patient: Total time spent is greater than 50% in coordination of care (as documented) at patient's floor/unit and/or counseling patient: Coding Diagnoses Encephalopathy G93.40 Psoas abscess, left K68.12 Hypomagnesemia E83.42 Parainfluenza type 1 infection B34.8 Seizure disorder G40.909 Type 2 diabetes mellitus E11.9 halfway current use of 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 Z79.01
--- NOTE | 2024-06-27 14:53 | Hospitalist Progress Note ---
Date of Service June 27, 2024 Assessment & Plan (1) Psoas abscess, left: Plan: Retroperitoneal/left psoas muscle hematoma complicated by abscess status postdrainage in January. Was treated with IV and p.o. antibiotics Recent admission from 06/12 to 06/16: There was some purulent discharge from the back. Was thought to be a subcutaneous cyst and was discharged on p.o. Augmentin Currently increased drainage from the same location General surgery consulted. This was abscess appears improved and is self draining. No surgical intervention warranted Was started on daptomycin and Zosyn upon admission 06/25 Infectious disease involved TTE ruled out vegetations although technically difficult study Blood cultures pending Wound cultures pending Associated with sepsis and the patient has leukocytosis and borderline hypotension, fever Considering MRI lumbar spine. Spoke to radiologist. Contrast MRI will be best however the patient has an acute kidney injury today. Will order the MRI lumbar spine with contrast once KEYANNA improved. (2) Encephalopathy: Plan: Patient with notable cognitive impairment regarding disability Multifactorial in the setting of parainfluenza and left psoas abscess, sepsis History of hepatic encephalopathy. Continue lactulose. Ammonia level normal on admission Depakote level pending No seizure echo shows UA negative (3) KEYANNA (acute kidney injury): Plan: Patient has solitary left kidney Creatinine went up from 0.8-2.75 today Multifactorial secondary to sepsis, dehydration, hypotension (patient was hypotensive overnight), contrast exposure Treat with IV fluids Discontinue Lasix Avoid nephrotoxic medications Repeat BMP at 3 PM today. If not improving, will consult nephrology Will hold off on MRI lumbar spine today Will try to do it with contrast once the KEYANNA resolves (4) Parainfluenza type 1 infection: Plan: Respiratory bio fire came back positive for parainfluenza 1 Isolation precautions Supportive treatment (5) DVT (deep venous thrombosis): Plan: Patient was on p.o. Eliquis [facility] 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 I had noticed during his previous hospitalization that whenever he is any distress he becomes altered, starts moaning and gets tearful. He is not able to verbalize his complaints probably because of his baseline intellectual disability. He is doing the same now with moaning and crying. Review of Systems Review of Systems: All systems reviewed & are unremarkable except as noted in Subjective Physical Exam Physical Exam: General: Awake, moaning, tearful Heart: S1, S2/regular rate and rhythm, no murmur rubs or gallops Lungs: Clear to auscultation bilaterally. Normal effort Abdomen: Soft/nontender/nondistended. No hepatosplenomegaly. Purulent drainage from left back cutaneous lesion Extremities: No clubbing/cyanosis. Left lower extremity edema Behavior: Appropriate, cooperative Results & Data Results & Data Vital Signs (Past 12 Hours) Vital Signs Temp Pulse Pulse Resp BP BP Pulse Ox 06/27/24 13:00 93 H 06/27/24 12:13 37.8 C H 97 H 16 110/64 97 06/27/24 09:48 106 H 22 103/62 92 06/27/24 09:14 37.0 C 105 H 16 92/60 L 94 06/27/24 08:28 37.2 C 108 H 16 120/70 93 06/27/24 07:48 06/27/24 06:03 98 H 06/27/24 05:00 89 16 94/54 L 06/27/24 04:10 36.8 C 89 18 85/42 L 93 O2 Del Method 06/27/24 13:00 06/27/24 12:13 Room Air 06/27/24 09:48 Room Air 06/27/24 09:14 Room Air 06/27/24 08:28 Room Air 06/27/24 07:48 Room Air 06/27/24 06:03 06/27/24 05:00 06/27/24 04:10 Room Air Laboratory Results Abnormal lab results 06/26/24 06/26/24 06/26/24 Range/Units 16:45 20:05 20:08 WBC (4.8-10.8) K/ul RBC (4.70-6.10) M/uL Hgb (14.0-18.0) g/dl Hct (42.0-52.0) % RDW Std Deviation (36.4-46.3) fL RDW Coeff of Pepper (11.5-14.5) % Plt Count (130-400) K/uL Neut # (Auto) (1.40-6.50) K/uL Eos # (Auto) (0.00-0.50) K/uL Heparin Anti-Xa, Unfract (0.3-0.7) IU/ml Carbon Dioxide 17 L (21-32) mmol/L Anion Gap (3-11) BUN 33 H (6-23) mg/dl Creatinine 1.99 H D (0.6-1.4) mg/dl Glucose 188 H (70-99(Fasting)) mg/dl POC Glucose 234 H 186 H (70-99) mg/dl Calcium 8.3 L (8.6-10.3) mg/dl Total Bilirubin 2.9 H D (0.2-1.0) mg/dl AST (13-39) U/L Alkaline Phosphatase 106 H (34-104) U/L Ammonia (18-72) umol/L Albumin 3.2 L (3.4-5.0) gm/dl 06/27/24 06/27/24 06/27/24 Range/Units 00:07 07:08 07:49 WBC 12.75 H (4.8-10.8) K/ul RBC 3.67 L (4.70-6.10) M/uL Hgb 12.1 L (14.0-18.0) g/dl Hct 35.3 L (42.0-52.0) % RDW Std Deviation 58.8 H (36.4-46.3) fL RDW Coeff of Pepper 16.3 H (11.5-14.5) % Plt Count 52 L (130-400) K/uL Neut # (Auto) 9.74 H (1.40-6.50) K/uL Eos # (Auto) 1.16 H (0.00-0.50) K/uL Heparin Anti-Xa, Unfract 1.02 H* 0.96 H* (0.3-0.7) IU/ml Carbon Dioxide (21-32) mmol/L Anion Gap 12 H (3-11) BUN 42 H (6-23) mg/dl Creatinine 2.75 H D (0.6-1.4) mg/dl Glucose 128 H (70-99(Fasting)) mg/dl POC Glucose 157 H (70-99) mg/dl Calcium 8.3 L (8.6-10.3) mg/dl Total Bilirubin (0.2-1.0) mg/dl AST 76 H (13-39) U/L Alkaline Phosphatase (34-104) U/L Ammonia 17.4 L (18-72) umol/L Albumin (3.4-5.0) gm/dl 06/27/24 Range/Units 12:00 WBC (4.8-10.8) K/ul RBC (4.70-6.10) M/uL Hgb (14.0-18.0) g/dl Hct (42.0-52.0) % RDW Std Deviation (36.4-46.3) fL RDW Coeff of Pepper (11.5-14.5) % Plt Count (130-400) K/uL Neut # (Auto) (1.40-6.50) K/uL Eos # (Auto) (0.00-0.50) K/uL Heparin Anti-Xa, Unfract (0.3-0.7) IU/ml Carbon Dioxide (21-32) mmol/L Anion Gap (3-11) BUN (6-23) mg/dl Creatinine (0.6-1.4) mg/dl Glucose (70-99(Fasting)) mg/dl POC Glucose 213 H (70-99) mg/dl Calcium (8.6-10.3) mg/dl Total Bilirubin (0.2-1.0) mg/dl AST (13-39) U/L Alkaline Phosphatase (34-104) U/L Ammonia (18-72) umol/L Albumin (3.4-5.0) gm/dl Diagnostic Findings Venous Doppler Study 06/26/24 13:43 LEFT LOWER EXTREMITY VENOUS DOPPLER CLINICAL HISTORY: Left leg pain and swelling. Evaluate for DVT. COMPARISON STUDY: Bilateral lower extremity venous Doppler ultrasound December 12, 2023. TECHNIQUE: Sonography of the deep venous system of the left lower extremity was performed. Compression and augmentation were evaluated. FINDINGS: The left common femoral vein is patent. Deep venous thrombus within the left superficial femoral, popliteal, posterior tibial, peroneal and anterior tibial veins is noted. Thrombus is increased in extent when compared to ultrasound of December 22, 2023. Stranding within several vessels is again noted. The findings suggest acute or chronic deep venous thrombus. IMPRESSION: Deep venous thrombus within the left superficial femoral, popliteal, posterior tibial, peroneal and anterior tibial veins, increased in extent since prior ultrasound. These findings favor acute on chronic deep venous thrombus within the left lower extremity. ACT 112: Negative or not required by law. Electronically signed by: Omari Foreman M.D. 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
[2024-06-27 17:01] LABS: Calcium 7.7 mg/dl (8.6-10.3); Creatinine Clr Calc Pharmacy 27.2 ml/min; Potassium 4.6 mmol/L (3.5-5.1)
[2024-06-27 17:09] LABS: ANTI-Xa, UFH(UnfractionatedHep 0.63 IU/ml (0.3-0.7)
[2024-06-27] MEDS: SODIUM CHLORIDE 0.9% 500 ML IV SCH (17:23)
[2024-06-27 18:23] LABS: Appearance Urine Turbid (Clear); Bilirubin Urine 1+ (Negative); Blood Urine 3+ (Negative); Color Urine Amber; Glucose Urine UA Trace (Negative); Ketones Urine Trace (Negative); Leukocyte Esterase Urine Negative (Negative); Nitrite Urine Negative (Negative); Protein Urine 2+ (Negative); Specific Gravity Urine 1.015 (1.000-1.030); Urobilinogen Urine Negative (Negative)
[2024-06-27 18:32] LABS: Amorphous Sediment Urine Present (None Prsent); Bacteria Urine 1+ (None Seen); Epithelial Cell Urine 0-2 /hpf (0-2); RBC Urine >20 /hpf (0-2); WBC Urine 0-5 /hpf (0-5)
[2024-06-28 06:20] LABS: BUN Creatinine Ratio 14.8 (10-20); Calcium 7.5 mg/dl (8.6-10.3); Creatinine Clr Calc Pharmacy 23.5 ml/min; Potassium 5.1 mmol/L (3.5-5.1)
[2024-06-28 06:32] LABS: ANTI-Xa, UFH(UnfractionatedHep 0.62 IU/ml (0.3-0.7)
[2024-06-28 07:28] LABS: Hematocrit (blood only) 25.1 % (42.0-52.0); Hemoglobin 8.3 g/dl (14.0-18.0); Mean Corpuscular Hemoglobin 32.2 pg (25.0-34.0); Mean Corpuscular Hgb Conc 33.1 g/dL (32.0-36.0); Mean Corpuscular Volume 97.3 fL (80.0-100.0); Mean Platelet Volume 12.3 fL (9.4-12.4); Platelet Count 37 K/uL (130-400); RDW Standard Deviation 57.4 fL (36.4-46.3); Red Blood Count 2.58 M/uL (4.70-6.10); White Blood Count 8.12 K/ul (4.8-10.8)
--- NOTE | 2024-06-28 09:30 | XRay Report ---
XR chest 1V portable CLINICAL HISTORY: Hypoxia. COMPARISON STUDY: Chest radiograph June 25, 2024. Chest CT November 26, 2023. FINDINGS: Moderate elevation of the right hemidiaphragm is again noted. There is no consolidation. Li near left basilar densities favor atelectasis. There is no evidence for pulmonary edema. There is no pneumothorax. Cardiomediastinal silhouette is stable. IMPRESSION: 1. No significant change in appearance of the chest. Stable elevation of the right hemidiaphragm. 2. Left basilar density suggestive of atelectasis. ACT 112: Negative or not required by law. Electronically signed by: Omari Foreman M.D. 06/28/2024 9:28 AM
[2024-06-28] MEDS: FUROSEMIDE 40 MG/4 ML VIAL IV ONE (13:56)
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
[2024-06-28] MEDS: SODIUM BICARB 8.4% INJ 50 MEQ/50 ML SYR IV STA (15:54)
[2024-06-28 16:17] LABS: iSTAT Arterial Blood Gas HCO3 17 meg/L (19-24); iSTAT Arterial Blood Gas pCO2 44 mmHg (35-46); iSTAT Arterial Blood Gas pO2 62 mmHg (80-95); iSTAT Carbon Dioxide 19 mmol/L (24-31); iSTAT Hematocrit 25 % (42-52); iSTAT Hemoglobin 8.5 g/dl (14.0-18.0); iSTAT Potassium 4.9 mmol/L (3.3-5.0); iSTAT Sample Type Arterial; iSTAT Sodium 133 mmol/L (135-144)
--- NOTE | 2024-06-28 16:45 | XCELERA ---
[id number]
[2024-06-28 16:56] LABS: Albumin Level 2.6 gm/dl (3.4-5.0); Bilirubin,Total 1.5 mg/dl (0.2-1.0); Calcium 7.3 mg/dl (8.6-10.3); Potassium 5.1 mmol/L (3.5-5.1)
[2024-06-28 17:02] LABS: Albumin Globulin Ratio 1.1 (0.9-2); BUN Creatinine Ratio 13.6 (10-20); Creatinine Clr Calc Pharmacy 20.2 ml/min; Globulin 2.4 gm/dl (2.5-4.0)
--- NOTE | 2024-06-28 17:03 | Hospitalist Progress Note ---
Date of Service June 28, 2024 Assessment & Plan (1) Psoas abscess, left: Plan: Retroperitoneal/left psoas muscle hematoma complicated by abscess status postdrainage in January. Was treated with IV and p.o. antibiotics Recent admission from 06/12 to 06/16: There was some purulent discharge from the back. Was thought to be a subcutaneous cyst and was discharged on p.o. Augmentin Currently increased drainage from the same location General surgery consulted. This was abscess appears improved and is self draining. No surgical intervention warranted Was started on daptomycin and Zosyn upon admission 06/25 Infectious disease involved TTE ruled out vegetations although technically difficult study Blood cultures pending Wound cultures pending Associated with sepsis and the patient has leukocytosis and borderline hypotension, fever Considering MRI lumbar spine. Spoke to radiologist. Contrast MRI will be best however the patient has an acute kidney injury today. Will order the MRI lumbar spine with contrast once KEYANNA improved. (2) Encephalopathy: Plan: Patient with notable cognitive impairment regarding disability Multifactorial in the setting of parainfluenza and left psoas abscess, sepsis History of hepatic encephalopathy. Continue lactulose. Ammonia level normal on admission Depakote level pending No seizure echo shows UA negative (3) Acute on chronic respiratory failure with hypoxemia: Plan: Patient is getting increasingly hypoxic Chest x-ray this morning was fairly unremarkable other than atelectasis PE being entertained The patient is already on heparin drip for an acute DVT Stat echo done but did not show RV strain Health Coach involved Patient has been transferred to ICU Patient most likely has sleep apnea as his sats drop when he falls asleep He may benefit from being on a BiPAP (4) KEYANNA (acute kidney injury): Plan: Patient has solitary left kidney Creatinine went up from 0.8- 3.85 today Oliguria Enrichment Specialist involved Enrichment Specialist ordered 120 mg of IV Lasix which she received 2 hours ago with minimal diuretic response Enrichment Specialist has spoken to the sister about potential dialysis in near future. (5) Parainfluenza type 1 infection: Plan: Respiratory bio fire came back positive for parainfluenza 1 Isolation precautions Supportive treatment (6) DVT (deep venous thrombosis): Plan: Patient was on p.o. Eliquis Patient was at [facility]. 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 She confirms a full CODE STATUS Admission and Anticipated Discharge Date Admission Date: June 25, 2024 Subjective Patient was seen and examined at 10 AM and again at 3 p.m. When I saw the patient in the morning, I had concerns about his decreasing urine output, his altered mental status, his increasing oxygen needs. I ordered a chest x-ray that did not show fluid overload or pneumonia. The nurse informed me that he is have been bringing up phlegm. I have been increasingly concerned about his renal function and his altered mental status. Nephrology has been involved. I have been speaking to his sister in detail about my concerns. I was called at 3 PM by the nurse that he was getting increasingly hypoxic. The insurance customer service specialist had ordered 120 mg of IV Lasix to which he has had minimal response. I immediately involved the sales recruitment specialist, obtained an ABG. Decision was made to transfer the patient to ICU. I informed the sister about the decision. Review of Systems Review of Systems: All systems reviewed & are unremarkable except as noted in Subjective Physical Exam Physical Exam: General: Awake, moaning, tearful. Decreased alertness today, falling asleep at times Heart: S1, S2/regular rate and rhythm, no murmur rubs or gallops Lungs: Clear to auscultation bilaterally. Normal effort Abdomen: Soft/nontender/nondistended. No hepatosplenomegaly. Purulent drainage from left back cutaneous lesion Extremities: No clubbing/cyanosis. Left lower extremity edema Behavior: Appropriate, cooperative Results & Data Results & Data Vital Signs (Past 12 Hours) Vital Signs Temp Pulse Pulse Resp BP Pulse Ox O2 Del Method 06/28/24 16:40 32 H 99 06/28/24 16:14 88 26 H 100 06/28/24 15:15 36.6 C 89 30 H 120/70 91 Oxymask 06/28/24 14:57 90 30 H 108/63 79 L Oxymask 06/28/24 14:42 50 L Room Air, Oxymask 06/28/24 13:59 95 Room Air, Nasal Cannula 06/28/24 13:01 85 06/28/24 11:26 36.6 C 86 18 116/68 95 Oxymask 06/28/24 08:40 36.9 C 92 H 16 110/64 95 Oxymask 06/28/24 08:20 82 L Room Air, Oxymask 06/28/24 07:03 Room Air 06/28/24 05:37 90 O2 Flow Rate FiO2 06/28/24 16:40 40 06/28/24 16:14 40 06/28/24 15:15 10 06/28/24 14:57 11 06/28/24 14:42 0 06/28/24 13:59 1 06/28/24 13:01 06/28/24 11:26 2 06/28/24 08:40 1 06/28/24 08:20 0 06/28/24 07:03 06/28/24 05:37 Laboratory Results Abnormal lab results 06/27/24 06/27/24 06/28/24 Range/Units 17:20 20:10 05:51 RBC (4.70-6.10) M/uL Hgb (14.0-18.0) g/dl POC Hgb (14.0-18.0) g/dl Hct (42.0-52.0) % POC Hct (42-52) % RDW Std Deviation (36.4-46.3) fL RDW Coeff of Pepper (11.5-14.5) % Plt Count (130-400) K/uL POC pH (7.35-7.45) POC pO2 (80-95) mmHg POC HCO3 (19-24) kaley/L POC Total CO2 (24-31) mmol/L POC Base Excess (-9-1.8) kaley/L POC ABG O2 Sat (90-95) % POC Sodium (135-144) mmol/L Sodium 134 L (136-145) mmol/L Carbon Dioxide 20 L (21-32) mmol/L BUN 57 H (6-23) mg/dl Creatinine 3.85 H D (0.6-1.4) mg/dl Glucose 153 H (70-99(Fasting)) mg/dl POC Glucose 114 H (70-99) mg/dl Calcium 7.5 L (8.6-10.3) mg/dl Total Bilirubin (0.2-1.0) mg/dl AST (13-39) U/L Lactate Dehydrogenase (86-244) U/L Total Protein (6.0-8.3) gm/dl Albumin (3.4-5.0) gm/dl Globulin (2.5-4.0) gm/dl Urine Appearance Turbid A (Clear) Urine Protein 2+ H (Negative) Urine Glucose (UA) Trace H (Negative) Urine Ketones Trace H (Negative) Urine Blood 3+ H (Negative) Urine Bilirubin 1+ H (Negative) Urine RBC >20 H (0-2) /hpf Amorphous Sediment Present A (None Prsent) Urine Bacteria 1+ H (None Seen) 06/28/24 06/28/24 06/28/24 Range/Units 06:58 08:26 11:59 RBC 2.58 L (4.70-6.10) M/uL Hgb 8.3 L D (14.0-18.0) g/dl POC Hgb (14.0-18.0) g/dl Hct 25.1 L (42.0-52.0) % POC Hct (42-52) % RDW Std Deviation 57.4 H (36.4-46.3) fL RDW Coeff of Pepper 16.0 H (11.5-14.5) % Plt Count 37 L (130-400) K/uL POC pH (7.35-7.45) POC pO2 (80-95) mmHg POC HCO3 (19-24) kaley/L POC Total CO2 (24-31) mmol/L POC Base Excess (-9-1.8) kaley/L POC ABG O2 Sat (90-95) % POC Sodium (135-144) mmol/L Sodium (136-145) mmol/L Carbon Dioxide (21-32) mmol/L BUN (6-23) mg/dl Creatinine (0.6-1.4) mg/dl Glucose (70-99(Fasting)) mg/dl POC Glucose 185 H 176 H (70-99) mg/dl Calcium (8.6-10.3) mg/dl Total Bilirubin (0.2-1.0) mg/dl AST (13-39) U/L Lactate Dehydrogenase (86-244) U/L Total Protein (6.0-8.3) gm/dl Albumin (3.4-5.0) gm/dl Globulin (2.5-4.0) gm/dl Urine Appearance (Clear) Urine Protein (Negative) Urine Glucose (UA) (Negative) Urine Ketones (Negative) Urine Blood (Negative) Urine Bilirubin (Negative) Urine RBC (0-2) /hpf Amorphous Sediment (None Prsent) Urine Bacteria (None Seen) 06/28/24 06/28/24 Range/Units 16:21 16:26 RBC (4.70-6.10) M/uL Hgb (14.0-18.0) g/dl POC Hgb 8.5 L (14.0-18.0) g/dl Hct (42.0-52.0) % POC Hct 25 L (42-52) % RDW Std Deviation (36.4-46.3) fL RDW Coeff of Pepper (11.5-14.5) % Plt Count (130-400) K/uL POC pH 7.20 L (7.35-7.45) POC pO2 62 L (80-95) mmHg POC HCO3 17 L (19-24) kaley/L POC Total CO2 19 L (24-31) mmol/L POC Base Excess -11.0 L (-9-1.8) kaley/L POC ABG O2 Sat 86.0 L (90-95) % POC Sodium 133 L (135-144) mmol/L Sodium 135 L (136-145) mmol/L Carbon Dioxide (21-32) mmol/L BUN 61 H (6-23) mg/dl Creatinine 4.47 H D (0.6-1.4) mg/dl Glucose 170 H (70-99(Fasting)) mg/dl POC Glucose (70-99) mg/dl Calcium 7.3 L (8.6-10.3) mg/dl Total Bilirubin 1.5 H (0.2-1.0) mg/dl AST 55 H (13-39) U/L Lactate Dehydrogenase 1005 H (86-244) U/L Total Protein 5.0 L D (6.0-8.3) gm/dl Albumin 2.6 L (3.4-5.0) gm/dl Globulin 2.4 L (2.5-4.0) gm/dl Urine Appearance (Clear) Urine Protein (Negative) Urine Glucose (UA) (Negative) Urine Ketones (Negative) Urine Blood (Negative) Urine Bilirubin (Negative) Urine RBC (0-2) /hpf Amorphous Sediment (None Prsent) Urine Bacteria (None Seen) Diagnostic Findings Chest X-Ray 06/28/24 08:48 XR chest 1V portable CLINICAL HISTORY: Hypoxia. COMPARISON STUDY: Chest radiograph June 25, 2024. Chest CT November 26, 2023. FINDINGS: Moderate elevation of the right hemidiaphragm is again noted. There is no consolidation. Linear left basilar densities favor atelectasis. There is no evidence for pulmonary edema. There is no pneumothorax. Cardiomediastinal silhouette is stable. IMPRESSION: 1. No significant change in appearance of the chest. Stable elevation of the right hemidiaphragm. 2. Left basilar density suggestive of atelectasis. ACT 112: Negative or not required by law. Electronically signed by: Omari Foreman M.D. 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
[2024-06-28 17:20] LABS: Eosinophils % (auto) 9.5 %; Hematocrit (blood only) 26.3 % (42.0-52.0); Hemoglobin 8.5 g/dl (14.0-18.0); Immature Granulocytes # (auto) 0.02 K/uL (0.01-0.20); Immature Granulocytes % (auto) 0.3 %; Lymphocytes % (auto) 9.5 %; Mean Corpuscular Hemoglobin 31.4 pg (25.0-34.0); Mean Corpuscular Hgb Conc 32.3 g/dL (32.0-36.0); Mean Platelet Volume 10.7 fL (9.4-12.4); Monocytes # (auto) 0.26 K/uL (0.11-0.59); Monocytes % (auto) 4.1 %; Neutrophils # (auto) 4.81 K/uL (1.40-6.50); Neutrophils % (auto) 76.6 %; Platelet Count 28 K/uL (130-400); Platelet Estimate Signific. Decreased (Normal); RDW Coefficient of Variation 16.1 % (11.5-14.5); RDW Standard Deviation 57.5 fL (36.4-46.3); Red Blood Count 2.71 M/uL (4.70-6.10); White Blood Count 6.29 K/ul (4.8-10.8)
[2024-06-28 19:08] LABS: Albumin Level 2.5 gm/dl (3.4-5.0); BUN Creatinine Ratio 13.8 (10-20); Bilirubin,Total 1.4 mg/dl (0.2-1.0); C Reactive Protein 25.77 mg/dl (0-0.5); Calcium 6.9 mg/dl (8.6-10.3); Creatinine Clr Calc Pharmacy 20.1 ml/min; Globulin 2.5 gm/dl (2.5-4.0)
[2024-06-28 19:25] LABS: Hematocrit (blood only) 31.7 % (42.0-52.0); Hemoglobin 10.7 g/dl (14.0-18.0); Mean Corpuscular Hemoglobin 32.2 pg (25.0-34.0); Mean Corpuscular Hgb Conc 33.8 g/dL (32.0-36.0); Mean Corpuscular Volume 95.5 fL (80.0-100.0); Mean Platelet Volume 12.1 fL (9.4-12.4); Platelet Count 29 K/uL (130-400); RDW Standard Deviation 57.1 fL (36.4-46.3); Red Blood Count 3.32 M/uL (4.70-6.10); White Blood Count 5.11 K/ul (4.8-10.8)
[2024-06-28 19:26] LABS: Basophils # (auto) 0.01 K/uL (0.00-0.20); Basophils % (auto) 0.2 %; Eosinophils # (auto) 0.55 K/uL (0.00-0.50); Eosinophils % (auto) 10.8 %; Immature Granulocytes # (auto) 0.01 K/uL (0.01-0.20); Immature Granulocytes % (auto) 0.2 %; Lymphocytes % (auto) 11.7 %; Monocytes # (auto) 0.26 K/uL (0.11-0.59); Monocytes % (auto) 5.1 %; Neutrophils # (auto) 3.68 K/uL (1.40-6.50)
[2024-06-28 20:23] LABS: Fibrinogen 504 mg/dl (184-400); INR 1.7 (0.9-1.1); Partial Thromboplastin Ratio 4.2; Prothrombin Time 17.9 Seconds (9.0-12.0)
--- NOTE | 2024-06-28 20:26 | Ultrasound Report ---
Exam(s): US RENAL EXAM: US Retroperitoneal Limited, Renal CLINICAL HISTORY: Reason for exam: acute kidney injury. TECHNIQUE: Real-time limited ultrasound of the retroperitoneum with image documentation. COMPARISON: No relevant prior studies available. FINDINGS: Right kidney: Right nephrectomy. Left kidney: Left kidney measures 16.5 cm. No hydronephrosis. Lower pole simple cyst measuring 1.5 cm; no follow-up indicated. No stones. Bladder: Urinary bladder decompressed around a Edwards catheter. IMPRESSION: 1. Large but otherwise unremarkable sonographic appearance of the left kidney. 2. Right nephrectomy. Electronically signed by: Cordelia Tirado M.D. 06/28/24 20:25 PM
[2024-06-28 20:37] LABS: Partial Thromboplastin Time 112 Seconds (21-31)
[2024-06-28] MEDS ORDERED: ARGATROBAN CONSULT ACTIVE SCH (20:43)
[2024-06-28] MEDS ORDERED: ARGATROBAN CONSULT ACTIVE ONE (20:43)
[2024-06-28] MEDS: THIAMINE HCL 200 MG in SODIUM CHLORIDE 0.9% 50 ML IV STA (22:57)
[2024-06-28] MEDS: PLASMA-LYTE A 250 ML IV ONE (23:08)
[2024-06-28 23:32] LABS: INR 1.7 (0.9-1.1); Partial Thromboplastin Ratio 2.5; Partial Thromboplastin Time 67 Seconds (21-31); Prothrombin Time 17.4 Seconds (9.0-12.0)
[2024-06-29 04:11] LABS: iSTAT Allen Test Pass; iSTAT Art Bld Gas pCO2 Correct 39 mmHg (35-46); iSTAT Art Bld Gas pH Corrected 7.299 (7.35-7.45); iSTAT Arterial Blood Gas HCO3 19 meg/L (19-24); iSTAT Arterial Blood Gas pCO2 39 mmHg (35-46); iSTAT Arterial Blood Gas pO2 114 mmHg (80-95); iSTAT Arterial Blood Gas pO2 C 114; iSTAT Carbon Dioxide 20 mmol/L (24-31); iSTAT FiO2 30 %; iSTAT Hematocrit 21 % (42-52); iSTAT Hemoglobin 7.1 g/dl (14.0-18.0); iSTAT Potassium 4.9 mmol/L (3.3-5.0); iSTAT Sample Type Arterial; iSTAT Site L Radial; iSTAT Sodium 135 mmol/L (135-144); iSTAT SpO2 98
[2024-06-29 04:32] LABS: Basophils # (auto) 0.02 K/uL (0.00-0.20); Basophils % (auto) 0.3 %; Eosinophils # (auto) 0.93 K/uL (0.00-0.50); Eosinophils % (auto) 13.5 %; Hemoglobin 7.9 g/dl (14.0-18.0); Immature Granulocytes # (auto) 0.01 K/uL (0.01-0.20); Immature Granulocytes % (auto) 0.1 %; Lymphocytes # (auto) 1.06 K/uL (1.20-3.40); Lymphocytes % (auto) 15.4 %; Mean Corpuscular Hemoglobin 31.9 pg (25.0-34.0); Mean Corpuscular Hgb Conc 32.9 g/dL (32.0-36.0); Mean Corpuscular Volume 96.8 fL (80.0-100.0); Mean Platelet Volume 11.1 fL (9.4-12.4); Monocytes % (auto) 5.8 %; Neutrophils # (auto) 4.48 K/uL (1.40-6.50); Neutrophils % (auto) 64.9 %; Platelet Count 32 K/uL (130-400); RDW Coefficient of Variation 15.9 % (11.5-14.5); Red Blood Count 2.48 M/uL (4.70-6.10)
[2024-06-29 04:45] LABS: Albumin Level 2.6 gm/dl (3.4-5.0); BUN Creatinine Ratio 13.6 (10-20); Bilirubin Direct 0.7 mg/dl (0-0.2); Bilirubin,Total 1.4 mg/dl (0.2-1.0); Calcium 7.4 mg/dl (8.6-10.3); Chol HDL Ratio 10.5 (0-5); Creatinine Clr Calc Pharmacy 17.8 ml/min; Phosphorus 5.1 mg/dl (2.5-4.9); Total Protein 5.2 gm/dl (6.0-8.3)
[2024-06-29 04:52] LABS: Polychromasia 2+
[2024-06-29 04:54] LABS: ANTI-Xa, UFH(UnfractionatedHep < 0.10 IU/ml (0.3-0.7)
[2024-06-29 05:02] LABS: Ferritin 1063.5 ng/ml (8-388)
[2024-06-29 05:12] LABS: Partial Thromboplastin Ratio > 4.9
[2024-06-29 05:19] LABS: Partial Thromboplastin Time > 139 Seconds (21-31)
[2024-06-29 06:49] LABS: Partial Thromboplastin Ratio > 4.9
[2024-06-29 07:20] LABS: Partial Thromboplastin Time > 139 Seconds (21-31)
[2024-06-29] MEDS: PHARMACY ARGATROBAN RATE CHANGE ONE ×5 (09:28→19:22)
[2024-06-29 09:48] LABS: Partial Thromboplastin Ratio 3.6
[2024-06-29 09:53] LABS: Partial Thromboplastin Time 96 Seconds (21-31)
[2024-06-29] MEDS: THIAMINE HCL 200 MG in SODIUM CHLORIDE 0.9% 50 ML IV SCH (10:09)
--- NOTE | 2024-06-29 10:23 | Hospitalist Progress Note ---
Date of Service June 29, 2024 Assessment & Plan (1) Psoas abscess, left: Plan: Retroperitoneal/left psoas muscle hematoma complicated by abscess status postdrainage in January. Was treated with IV and p.o. antibiotics Recent admission from 06/12 to 06/16: There was some purulent discharge from the back. Was thought to be a subcutaneous cyst and was discharged on p.o. Augmentin Currently increased drainage from the same location General surgery consulted. This was abscess appears improved and is self draining. No surgical intervention warranted Was started on daptomycin and Zosyn upon admission 06/25 Infectious disease involved TTE ruled out vegetations although technically difficult study Blood cultures pending Wound cultures pending Associated with sepsis and the patient has leukocytosis and borderline hypotension, fever Considering MRI lumbar spine. Spoke to radiologist. Contrast MRI will be best however the patient has an acute kidney injury today. Will order the MRI lumbar spine with contrast once KEYANNA improved. On 06/29 Patient off BIPAP. Patient will be transferred out of the ICU. Discussed with IR and General surgery. Nothing could be aspirated on imaging. Plan is to continue antibiotics until tract closes. Positive findings regarding infection: WBC and fever curve have improved. (2) Encephalopathy: Plan: Patient with notable cognitive impairment regarding disability Multifactorial in the setting of parainfluenza and left psoas abscess, sepsis History of hepatic encephalopathy. Continue lactulose. 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 On 06/29 Main issue is his poor urine output and volume status. Creatinine has been rising. Likely multifactorial from contrast and hypotension from sepsis. (5) Parainfluenza type 1 infection: Plan: Respiratory bio fire came back positive for parainfluenza 1 Isolation precautions Supportive treatment (6) DVT (deep venous thrombosis): Plan: Patient was on p.o. Eliquis Patient was at [facility]. Likely good compliance Currently has an acute on chronic left lower extremity DVT Discontinue Eliquis Switch to IV heparin drip/ now on argatroban. Use caution because of a history of intramuscular hematoma (verified with the family that he had a fall that led to a traumatic hematoma and not just Coumadin induced) (7) Hypomagnesemia: Plan: Repleted (8) residential current use of 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: (9) Sepsis: Plan: Patient meets criteria for sepsis Most likely due to left psoas abscess plus parainfluenza type I infection (10) Seizure disorder: Plan: Continue home valproate, phenytoin, Topamax Levels ordered, pending (11) T2DM (type 2 diabetes mellitus): Plan: Hold home medications Continue sliding scale Plan Updated sister about his worsening status and transfer to ICU. She confirms a full CODE STATUS Admission and Anticipated Discharge Date Admission Date: June 25, 2024 Subjective Patient is a poor hsitorian. Appears to be more calm in the ICU. No complaints, but somewhat confused. OFf of BIPAP. Physical Exam Physical Exam: General: Awake, confused. Heart: S1, S2/regular rate and rhythm, no murmur rubs or gallops Lungs: Clear to auscultation bilaterally. Normal effort Abdomen: Soft/nontender/nondistended. No hepatosplenomegaly. Purulent drainage from left back cutaneous lesion Extremities: No clubbing/cyanosis. Left lower extremity edema Behavior: cooperative Purulent draiange from small opening on back. Results & Data Results & Data Vital Signs (Past 12 Hours) Vital Signs Pulse Resp BP Pulse Ox FiO2 06/29/24 09:03 94 H 24 96 06/29/24 09:01 117/68 06/29/24 08:54 91 H 24 99 06/29/24 08:33 91 H 23 99 06/29/24 08:03 88 24 98 06/29/24 08:00 104/59 L 06/29/24 07:57 88 23 99 06/29/24 07:33 89 21 98 06/29/24 07:21 96/60 L 06/29/24 07:21 87 17 99 06/29/24 07:09 87 25 H 96 06/29/24 07:01 85/59 L 06/29/24 06:45 86 26 H 98 06/29/24 06:09 82 16 100 06/29/24 05:42 82 22 100 06/29/24 04:36 85 22 100 06/29/24 04:30 105/63 06/29/24 04:06 87 26 H 06/29/24 04:00 86 17 06/29/24 03:41 85 18 99 30 06/29/24 03:30 81 24 06/29/24 03:00 85 20 06/29/24 03:00 116/53 L 06/29/24 03:00 116/53 L 06/29/24 03:00 116/53 L 06/29/24 02:42 84 31 H 06/29/24 02:00 122/54 L 06/29/24 02:00 122/54 L 06/29/24 01:48 84 18 06/29/24 01:45 84 21 06/29/24 01:03 85 19 97 06/29/24 01:00 111/66 06/29/24 01:00 111/66 06/29/24 00:48 86 21 98 06/29/24 00:33 85 21 97 06/29/24 00:26 95 H 26 H 99 30 06/29/24 00:03 84 22 98 06/29/24 00:01 107/62 06/28/24 23:57 85 20 97 06/28/24 23:36 84 24 98 06/28/24 23:00 109/55 L 06/28/24 23:00 82 21 100 06/28/24 23:00 84 06/28/24 22:42 84 20 100 PG Care Time/CCT Total # of Minutes Spent Total Time Spent with Patient: Total time spent is greater than 50% in coordination of care (as documented) at patient's floor/unit and/or counseling patient: Coding Level of Care Code 44219 SUB INP/OBS CARE 3/50MIN Diagnoses Psoas abscess, left K68.12 Encephalopathy G93.40 Acute on chronic respiratory failure with hypoxemia J96.21 KEYANNA (acute kidney injury) N17.9 Parainfluenza type 1 infection B34.8 DVT (deep venous thrombosis) I82.409 Hypomagnesemia E83.42 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
--- NOTE | 2024-06-29 10:25 | Critical Care Progress Note ---
Date of Service June 29, 2024 Assessment & Plan (1) Encephalopathy acute: (2) Parainfluenza type 1 infection: (3) Altered mental status: (4) KEYANNA (acute kidney injury): (5) Current long-term use of 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 medication with history of deep venous thrombosis (DVT): (6) Sepsis: (7) Seizure disorder: (8) T2DM (type 2 diabetes mellitus): (9) Acute on chronic respiratory failure with hypoxemia: (10) Cognitive dysfunction: Plan Impression: 63-year-old male with cognitive dysfunction is institutionalized admitted with persistent issues with iliopsoas hypodensity, possible abscess despite multiple courses of antibiotics. Patient was transferred to the ICU due to encephalopathy and hypoxemia which have resolved. Recommendations: 1. Hypoxemia: Appears resolved. The patient no longer requires noninvasive positive pressure ventilation and is on a minimal amount of oxygen. Continue to wean as tolerated. Unclear how compliant the patient can be with incentive spirometry or flutter valve at this point in time. Wean as tolerated. 2. Iliopsoas abscess: Management per infectious disease and primary service. Defer antibiotics to them. 3. Potential sleep disordered breathing: Can continue CPAP or BiPAP nightly depending on patient compliance and tolerance. 4. Encephalopathy resolved. Likely metabolic. Continue to follow. Patient appears to be at his baseline. Would be entirely appropriate to discuss goals of care in this institutionalized patient. Additional invasive procedures may not be in his long-term benefit. Defer to primary admitting service. The patient's critical care issues have resolved. Critical care will sign off. Patient can transfer back to the floor. Feel free to contact us with questions or concerns Admission and Anticipated Discharge Date Admission Date: June 25, 2024 Subjective Patient seen and examined. EMR due. Discussed with off going skating carhop as well as bedside critical care nurse, overnight critical care ODELL, and bedside multidisciplinary rounds. Patient is in no distress this morning. He denies any new complaints Review of Systems Review of Systems: Unobtainable due to cognitive status Physical Exam Physical Exam: Constitutional: No acute distress HEENT: PERRLA, EOMI, significant cervical kyphosis Respiratory system: Decreased air entry bilaterally, no wheeze, rhonchi, mild crackles bilateral lower lobes CVS: S1-S2 positive, no murmurs or gallops Abdomen: Soft, nontender, nondistended, positive bowel sounds x4 Extremities: +2 pulses bilaterally radialis/ dorsalis pedis, no cyanosis, +1 pitting edema bilateral lower extremity Neuro: Somnolent, easily arousable, not following any commands, does try to track with his eyes Psych: Unable to assess G/U: Positive Edwards Skin: no rashes, warm and dry Lymphatic: no cervical or axillary lymphadenopathy Results & Data Results & Data Vital Signs (Past 12 Hours) Vital Signs Pulse Resp BP Pulse Ox FiO2 06/29/24 09:03 94 H 24 96 06/29/24 09:01 117/68 06/29/24 08:54 91 H 24 99 06/29/24 08:33 91 H 23 99 06/29/24 08:03 88 24 98 06/29/24 08:00 104/59 L 06/29/24 07:57 88 23 99 06/29/24 07:33 89 21 98 06/29/24 07:21 96/60 L 06/29/24 07:21 87 17 99 06/29/24 07:09 87 25 H 96 06/29/24 07:01 85/59 L 06/29/24 06:45 86 26 H 98 06/29/24 06:09 82 16 100 06/29/24 05:42 82 22 100 06/29/24 04:36 85 22 100 06/29/24 04:30 105/63 06/29/24 04:06 87 26 H 06/29/24 04:00 86 17 06/29/24 03:41 85 18 99 30 06/29/24 03:30 81 24 06/29/24 03:00 85 20 06/29/24 03:00 116/53 L 06/29/24 03:00 116/53 L 06/29/24 03:00 116/53 L 06/29/24 02:42 84 31 H 06/29/24 02:00 122/54 L 06/29/24 02:00 122/54 L 06/29/24 01:48 84 18 06/29/24 01:45 84 21 06/29/24 01:03 85 19 97 06/29/24 01:00 111/66 06/29/24 01:00 111/66 06/29/24 00:48 86 21 98 06/29/24 00:33 85 21 97 06/29/24 00:26 95 H 26 H 99 30 06/29/24 00:03 84 22 98 06/29/24 00:01 107/62 06/28/24 23:57 85 20 97 06/28/24 23:36 84 24 98 06/28/24 23:00 109/55 L 06/28/24 23:00 82 21 100 06/28/24 23:00 84 06/28/24 22:42 84 20 100 Critical Care Results & Data Vital Signs (Past 12 Hours) Vital Signs Pulse Resp BP Pulse Ox FiO2 06/29/24 09:03 94 H 24 96 06/29/24 09:01 117/68 06/29/24 08:54 91 H 24 99 06/29/24 08:33 91 H 23 99 06/29/24 08:03 88 24 98 06/29/24 08:00 104/59 L 06/29/24 07:57 88 23 99 06/29/24 07:33 89 21 98 06/29/24 07:21 96/60 L 06/29/24 07:21 87 17 99 06/29/24 07:09 87 25 H 96 06/29/24 07:01 85/59 L 06/29/24 06:45 86 26 H 98 06/29/24 06:09 82 16 100 06/29/24 05:42 82 22 100 06/29/24 04:36 85 22 100 06/29/24 04:30 105/63 06/29/24 04:06 87 26 H 06/29/24 04:00 86 17 06/29/24 03:41 85 18 99 30 06/29/24 03:30 81 24 06/29/24 03:00 85 20 06/29/24 03:00 116/53 L 06/29/24 03:00 116/53 L 06/29/24 03:00 116/53 L 06/29/24 02:42 84 31 H 06/29/24 02:00 122/54 L 06/29/24 02:00 122/54 L 06/29/24 01:48 84 18 06/29/24 01:45 84 21 06/29/24 01:03 85 19 97 06/29/24 01:00 111/66 06/29/24 01:00 111/66 06/29/24 00:48 86 21 98 06/29/24 00:33 85 21 97 06/29/24 00:26 95 H 26 H 99 30 06/29/24 00:03 84 22 98 06/29/24 00:01 107/62 06/28/24 23:57 85 20 97 06/28/24 23:36 84 24 98 06/28/24 23:00 109/55 L 06/28/24 23:00 82 21 100 06/28/24 23:00 84 06/28/24 22:42 84 20 100 Lab & Micro Results (Past 24 Hours) RBC 2.48 M/uL (4.70-6.10) L 06/29/24 WBC 6.90 K/ul (4.8-10.8) 06/29/24 Hgb 8.1 g/dl (14.0-18.0) L 06/29/24 Hct 24.0 % (42.0-52.0) L 06/29/24 MCV 96.8 fL (80.0-100.0) 06/29/24 MCH 31.9 pg (25.0-34.0) 06/29/24 MCHC 32.9 g/dL (32.0-36.0) 06/29/24 RDW Standard Deviation 57.0 fL (36.4-46.3) H 06/29/24 RDW Coefficient of Variation 15.9 % (11.5-14.5) H 06/29/24 Plt Count 32 K/uL (130-400) L 06/29/24 MPV 11.1 fL (9.4-12.4) 06/29/24 Neutrophils (%) (Auto) 64.9 % 06/29/24 Lymphocytes (%) (Auto) 15.4 % 06/29/24 Monocytes # (Auto) 0.40 K/uL (0.11-0.59) 06/29/24 Eosinophils # (Auto) 0.93 K/uL (0.00-0.50) H 06/29/24 Immature Granulocyte % (Auto) 0.1 % 06/29/24 Neutrophils # (Auto) 4.48 K/uL (1.40-6.50) 06/29/24 Lymphocytes # (Auto) 1.06 K/uL (1.20-3.40) L 06/29/24 Monocytes # (Auto) 0.40 K/uL (0.11-0.59) 06/29/24 Eosinophils # (Auto) 0.93 K/uL (0.00-0.50) H 06/29/24 Basophils # (Auto) 0.02 K/uL (0.00-0.20) 06/29/24 Immature Granulocyte # (Auto) 0.01 K/uL (0.01-0.20) 4 Polychromasia 2+ 06/29/24 Na 136 mmol/L (136-145) 06/29/24 K 5.0 mmol/L (3.5-5.1) 06/29/24 Cl 104 mmol/L (98-107) 06/29/24 CO2 21 mmol/L (21-32) 06/29/24 Anion Gap 11 (3-11) 06/29/24 BUN 69 mg/dl (6-23) H 06/29/24 Creatinine 5.08 mg/dl (0.6-1.4) H* 06/29/24 BUN/Creatinine Ratio 13.6 (10-20) 06/29/24 Glu 102 mg/dl (70-99(Fasting)) H 06/29/24 Ca 7.4 mg/dl (8.6-10.3) L 06/29/24 Phosphorus Level 5.1 mg/dl (2.5-4.9) H 06/29/24 Total Bilirubin 1.4 mg/dl (0.2-1.0) H 06/29/24 Direct Bilirubin 0.7 mg/dl (0-0.2) H 06/29/24 AST 55 U/L (13-39) H 06/29/24 ALT 12 U/L (7-52) 06/29/24 Alkaline Phosphatase 85 U/L (34-104) 06/29/24 TP 5.2 gm/dl (6.0-8.3) L 06/29/24 Albumin 2.6 gm/dl (3.4-5.0) L 06/29/24 Globulin 2.5 gm/dl (2.5-4.0) 06/28/24 Albumin/Globulin Ratio 1.0 (0.9-2) 06/28/24 Lactate Dehydrogenase 1005 U/L (86-244) H 06/28/24 Calcium Level 7.4 mg/dl (8.6-10.3) L 06/29/24 04:05 Prothromb Time International Ratio 1.7 (0.9-1.1) H 06/28/24 22 :17 Vipin Test Pass 06/29/24 03:56 Microbiology 06/27/24 17:20 Urine Culture - Final Urine,Straight Cath No growth - less than 1,000 colonies/mL. 06/27/24 00:07 Aerobic Blood Culture - Preliminary Blood No growth in Aerobic bottle after 48 hours. Anaerobic Blood Culture - Preliminary No growth in Anaerobic bottle after 48 hours. 06/27/24 00:07 Aerobic Blood Culture - Preliminary Blood No growth in Aerobic bottle after 48 hours. Anaerobic Blood Culture - Preliminary No growth in Anaerobic bottle after 48 hours. 06/27/24 02:10 Fungal Smear - Final Tissue,Undefined Fungal Culture - Preliminary No yeast or fungus isolated - Report 1, Additional Report to Follow. 06/26/24 00:04 Gram Stain - Final Back Wound Culture - Final Low counts mixed probable skin microbiota. No further identifications or sensitivities to follow. Diagnostic Findings (Past 24 Hours) Renal Ultrasound 06/28/24 14:35 Exam(s): US RENAL EXAM: US Retroperitoneal Limited, Renal CLINICAL HISTORY: Reason for exam: acute kidney injury. TECHNIQUE: Real-time limited ultrasound of the retroperitoneum with image documentation. COMPARISON: No relevant prior studies available. FINDINGS: Right kidney: Right nephrectomy. Left kidney: Left kidney measures 16.5 cm. No hydronephrosis. Lower pole simple cyst measuring 1.5 cm; no follow-up indicated. No stones. Bladder: Urinary bladder decompressed around a Edwards catheter. IMPRESSION: 1. Large but otherwise unremarkable sonographic appearance of the left kidney. 2. Right nephrectomy. Electronically signed by: Cordelia Tirado M.D. 06/28/24 20:25 PM I & O Totals 24 Hours 06/28/24 06/29/24 06/30/24 06:59 06:59 06:59 Intake Total 4139.134 / 4139.134 1716.487 / 1716.487 0 / 0 Output Total 203 / 203 383 / 383 Balance 3936.134 / 3936.134 1333.487 / 1333.487 0 / 0 Cumulative 06/25/24 17:45 thru 06/29/24 07:20 Intake Total 9705.621 Output Total 712 Balance 8993.621 RT Ventilator Mngmt (Last Documented) Ventilator Ordered Settings Respiratory Rate 24 06/29/24 09:03 Fraction of Inspired Oxygen 30 06/29/24 03:41 Ventilator - PT Measurements Respiratory Rate 24 Coding Level of Care Code 18589 SUB INP/OBS CARE 2/35MIN Diagnoses Encephalopathy acute G93.40 Parainfluenza type 1 infection B34.8 Altered mental status R41.82 KEYANNA (acute kidney injury) N17.9 Current long-term use of 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 medication with history of deep venous thrombosis (DVT) Z86.718; Z79.01 Sepsis A41.9 Seizure disorder G40.909 T2DM (type 2 diabetes mellitus) E11.9 Acute on chronic respiratory failure with hypoxemia J96.21 Cognitive dysfunction F09
--- NOTE | 2024-06-29 10:36 | Nephrology Progress Note ---
Date of Service June 29, 2024 Assessment & Plan (1) KEYANNA (acute kidney injury): Plan: Urine output improved slightly. Electrolytes acceptable. Volume status remains slightly hypervolemic. Furosemide held this AM. Will revisit later today with a goal to encourage relatively even fluid balance. No emergent indication for dialysis at this time but no clear evidence of renal recovery. KEYANNA attributed to ATN (hemodynamic and IV contrast). Medications are appropriate for kidney function. Document I/O's. Edwards to gravity. Repeat metabolic profile later today. Low potassium diet. (2) Altered mental status: Plan: Improving encephalopathy reported. BIPAP overnight in ICU. (3) Septic shock: (4) Anemia: Plan: Hgb stable. No active evidence fo bleeding. Iron stores acceptable. Associated thrombocytopenia - labs are not consistent with DIC and no evidence of TMA on smear. Negative testing for tick borne illness. Admission and Anticipated Discharge Date Admission Date: June 25, 2024 Subjective Eliseo was resting comfortably in the ICU this AM. He was breathing comfortably on O2 via NC. RN reports improvement mentation. Eliseo answered simple questions for me this AM. He denies pain. He denies chest pains or shortness of breath. Urine output has improved slightly. No fevers or chills. Review of Systems Review of Systems: All systems reviewed & are unremarkable except as noted in HPI & below Physical Exam Constitutional: well developed; no acute distress Eyes: no scleral abnormality and no corneal abnormality ENMT: Mouth: no oral mucosal abnormality and oral mucous membranes not dry Neck: normal visual inspection and trachea midline Respiratory: normal respiratory effort Auscultation: lungs clear to auscultation bilaterally and + rhonchi Cardiovascular: Rate/Rhythm: regular rate Heart Sounds: normal S1 and normal S2 Extremities: + edema (+1 BL LE) Musculoskeletal: Extremities: no cyanosis and no clubbing Skin: normal turgor; no jaundice Neurologic: Motor/Sensory: + tremor; no asterixis Psychiatric: Orientation: alert and cooperative Eye Contact: + poor eye contact Genitourinary: Edwards draining clear yellow urine Results & Data Vital Signs (Past 12 Hours) Vital Signs Pulse Resp BP Pulse Ox FiO2 06/29/24 09:03 94 H 24 96 06/29/24 09:01 117/68 06/29/24 08:54 91 H 24 99 06/29/24 08:33 91 H 23 99 06/29/24 08:03 88 24 98 06/29/24 08:00 104/59 L 06/29/24 07:57 88 23 99 06/29/24 07:33 89 21 98 06/29/24 07:21 96/60 L 06/29/24 07:21 87 17 99 06/29/24 07:09 87 25 H 96 06/29/24 07:01 85/59 L 06/29/24 06:45 86 26 H 98 06/29/24 06:09 82 16 100 06/29/24 05:42 82 22 100 06/29/24 04:36 85 22 100 06/29/24 04:30 105/63 06/29/24 04:06 87 26 H 06/29/24 04:00 86 17 06/29/24 03:41 85 18 99 30 06/29/24 03:30 81 24 06/29/24 03:00 85 20 06/29/24 03:00 116/53 L 06/29/24 03:00 116/53 L 06/29/24 03:00 116/53 L 06/29/24 02:42 84 31 H 06/29/24 02:00 122/54 L 06/29/24 02:00 122/54 L 06/29/24 01:48 84 18 06/29/24 01:45 84 21 06/29/24 01:03 85 19 97 06/29/24 01:00 111/66 06/29/24 01:00 111/66 06/29/24 00:48 86 21 98 06/29/24 00:33 85 21 97 06/29/24 00:26 95 H 26 H 99 30 06/29/24 00:03 84 22 98 06/29/24 00:01 107/62 06/28/24 23:57 85 20 97 06/28/24 23:36 84 24 98 06/28/24 23:00 109/55 L 06/28/24 23:00 82 21 100 06/28/24 23:00 84 06/28/24 22:42 84 20 100 Laboratory Results Laboratory Results - last 24 hr 06/28/24 06/28/24 06/28/24 11:59 16:21 16:26 WBC 6.29 RBC 2.71 L Hgb 8.5 L POC Hgb 8.5 L Hct 26.3 L POC Hct 25 L MCV 97.0 MCH 31.4 MCHC 32.3 RDW Std Deviation 57.5 H RDW Coeff of Pepper 16.1 H Plt Count 28 L* MPV 10.7 Immature Gran % (Auto) 0.3 Neut % (Auto) 76.6 Lymph % (Auto) 9.5 [place] % (Auto) 4.1 Eos % (Auto) 9.5 Baso % (Auto) 0.0 Neut # (Auto) 4.81 Lymph # (Auto) 0.60 L [place] # (Auto) 0.26 Eos # (Auto) 0.60 H Baso # (Auto) 0.00 Immature Gran # (Auto) 0.02 Platelet Estimate Signific. Decreased L Polychromasia Peripher Smr Path Cons PT INR APTT PTT Ratio Fibrinogen Heparin Anti-Xa, Unfract Specimen Type Arterial Sample Site POC pH 7.20 L POC pCO2 44 POC pO2 62 L POC HCO3 17 L POC Total CO2 19 L POC Base Excess -11.0 L O2 Sat Pulse Oximetry ABG pH (Temp Correct) ABG pCO2 (Temp Corrct POC ABG pO2 at Pt Temp POC ABG O2 Sat 86.0 L Vipin Test O2 Delivery Device POC FiO2 EPAP IPAP POC Sodium 133 L Sodium 135 L POC Potassium 4.9 Potassium 5.1 Chloride 102 Carbon Dioxide 23 Anion Gap 10 BUN 61 H Creatinine 4.47 H D Est Cr Clr Drug Dosing 20.2 eGFR 13.85 BUN/Creatinine Ratio 13.6 Glucose 170 H POC Glucose 176 H Lactate 1.0 Calcium 7.3 L Phosphorus Iron TIBC Unsaturated IBC Transferrin % Sat Ferritin Total Bilirubin 1.5 H Direct Bilirubin AST 55 H ALT 13 Alkaline Phosphatase 75 Ammonia 24.0 Lactate Dehydrogenase 1005 H C-Reactive Protein Total Protein 5.0 L D Albumin 2.6 L Globulin 2.4 L Albumin/Globulin Ratio 1.1 Triglycerides Cholesterol LDL Cholesterol, Calc VLDL Cholesterol, Calc HDL Cholesterol Cholesterol/HDL Ratio Serotonin Release Assay Procalcitonin Phenytoin Valproic Acid Heparin Depend Plt Ab OLIMPIA UFH Low Dose 0.1 OLIMPIA UFH Low Dose 0.5 OLIMPIA UFH High Dose OLIMPIA Unfract Heparin Anaplasma Smear A. phagocytophilum DNA Babesia Smear Babesia microti DNA PCR Lyme Disease Screen Ref Lab Test Result 06/28/24 06/28/24 06/28/24 17:28 18:26 21:35 WBC 5.11 RBC 3.32 L Hgb 10.7 L POC Hgb Hct 31.7 L POC Hct MCV 95.5 MCH 32.2 MCHC 33.8 RDW Std Deviation 57.1 H RDW Coeff of Pepper 16.0 H Plt Count 29 L* MPV 12.1 Immature Gran % (Auto) 0.2 Neut % (Auto) 72.0 Lymph % (Auto) 11.7 [place] % (Auto) 5.1 Eos % (Auto) 10.8 Baso % (Auto) 0.2 Neut # (Auto) 3.68 Lymph # (Auto) 0.60 L [place] # (Auto) 0.26 Eos # (Auto) 0.55 H Baso # (Auto) 0.01 Immature Gran # (Auto) 0.01 Platelet Estimate Polychromasia Peripher Smr Path Cons PT 17.9 H INR 1.7 H APTT 112 H* PTT Ratio 4.2 Fibrinogen 504 H Heparin Anti-Xa, Unfract Specimen Type Sample Site POC pH POC pCO2 POC pO2 POC HCO3 POC Total CO2 POC Base Excess O2 Sat Pulse Oximetry ABG pH (Temp Correct) ABG pCO2 (Temp Corrct POC ABG pO2 at Pt Temp POC ABG O2 Sat Vipin Test O2 Delivery Device POC FiO2 EPAP IPAP POC Sodium Sodium 138 POC Potassium Potassium 5.0 Chloride 106 Carbon Dioxide 20 L Anion Gap 12 H BUN 62 H Creatinine 4.50 H Est Cr Clr Drug Dosing 20.1 eGFR 13.74 BUN/Creatinine Ratio 13.8 Glucose 150 H POC Glucose 172 H 123 H Lactate Calcium 6.9 L Phosphorus Iron TIBC Unsaturated IBC Transferrin % Sat Ferritin Total Bilirubin 1.4 H Direct Bilirubin AST 56 H ALT 13 Alkaline Phosphatase 76 Ammonia Lactate Dehydrogenase C-Reactive Protein 25.77 H Total Protein 5.0 L Albumin 2.5 L Globulin 2.5 Albumin/Globulin Ratio 1.0 Triglycerides Cholesterol LDL Cholesterol, Calc VLDL Cholesterol, Calc HDL Cholesterol Cholesterol/HDL Ratio Serotonin Release Assay Pending Procalcitonin > 100.00 H Phenytoin Valproic Acid Heparin Depend Plt Ab Pending OLIMPIA UFH Low Dose 0.1 Pending OLIMPIA UFH Low Dose 0.5 Pending OLIMPIA UFH High Dose Pending OLIMPIA Unfract Heparin Pending Anaplasma Smear See Comment A. phagocytophilum DNA Pending Babesia Smear See Comment Babesia microti DNA PCR Pending Lyme Disease Screen Negative Ref Lab Test Result 06/28/24 06/29/24 06/29/24 22:17 01:17 03:56 WBC RBC Hgb POC Hgb 7.1 L Hct POC Hct 21 L MCV MCH MCHC RDW Std Deviation RDW Coeff of Pepper Plt Count MPV Immature Gran % (Auto) Neut % (Auto) Lymph % (Auto) [place] % (Auto) Eos % (Auto) Baso % (Auto) Neut # (Auto) Lymph # (Auto) [place] # (Auto) Eos # (Auto) Baso # (Auto) Immature Gran # (Auto) Platelet Estimate Polychromasia Peripher Smr Path Cons PT 17.4 H INR 1.7 H APTT 67 H PTT Ratio 2.5 Fibrinogen Heparin Anti-Xa, Unfract Specimen Type Arterial Sample Site L Radial POC pH 7.30 L POC pCO2 39 POC pO2 114 H POC HCO3 19 POC Total CO2 20 L POC Base Excess -7.0 O2 Sat Pulse Oximetry 98 ABG pH (Temp Correct) 7.299 L ABG pCO2 (Temp Corrct 39 POC ABG pO2 at Pt Temp 114 POC ABG O2 Sat 98.0 H Vipin Test Pass O2 Delivery Device BIPAP POC FiO2 30 EPAP 6 IPAP 12 POC Sodium 135 Sodium POC Potassium 4.9 Potassium Chloride Carbon Dioxide Anion Gap BUN Creatinine Est Cr Clr Drug Dosing eGFR BUN/Creatinine Ratio Glucose POC Glucose 112 H Lactate Calcium Phosphorus Iron TIBC Unsaturated IBC Transferrin % Sat Ferritin Total Bilirubin Direct Bilirubin AST ALT Alkaline Phosphatase Ammonia Lactate Dehydrogenase C-Reactive Protein Total Protein Albumin Globulin Albumin/Globulin Ratio Triglycerides Cholesterol LDL Cholesterol, Calc VLDL Cholesterol, Calc HDL Cholesterol Cholesterol/HDL Ratio Serotonin Release Assay Procalcitonin Phenytoin Valproic Acid Heparin Depend Plt Ab OLIMPIA UFH Low Dose 0.1 OLIMPIA UFH Low Dose 0.5 OLIMPIA UFH High Dose OLIMPIA Unfract Heparin Anaplasma Smear A. phagocytophilum DNA Babesia Smear Babesia microti DNA PCR Lyme Disease Screen Ref Lab Test Result 06/29/24 06/29/24 06/29/24 04:05 05:52 06:46 WBC 6.90 RBC 2.48 L Hgb 7.9 L 8.1 L POC Hgb Hct 24.0 L POC Hct MCV 96.8 MCH 31.9 MCHC 32.9 RDW Std Deviation 57.0 H RDW Coeff of Pepper 15.9 H Plt Count 32 L MPV 11.1 Immature Gran % (Auto) 0.1 Neut % (Auto) 64.9 Lymph % (Auto) 15.4 [place] % (Auto) 5.8 Eos % (Auto) 13.5 Baso % (Auto) 0.3 Neut # (Auto) 4.48 Lymph # (Auto) 1.06 L [place] # (Auto) 0.40 Eos # (Auto) 0.93 H Baso # (Auto) 0.02 Immature Gran # (Auto) 0.01 Platelet Estimate Polychromasia 2+ Peripher Smr Path Cons PT INR APTT > 139 H* > 139 H* PTT Ratio > 4.9 > 4.9 Fibrinogen Heparin Anti-Xa, Unfract < 0.10 L Specimen Type Sample Site POC pH POC pCO2 POC pO2 POC HCO3 POC Total CO2 POC Base Excess O2 Sat Pulse Oximetry ABG pH (Temp Correct) ABG pCO2 (Temp Corrct POC ABG pO2 at Pt Temp POC ABG O2 Sat Vipin Test O2 Delivery Device POC FiO2 EPAP IPAP POC Sodium Sodium 136 POC Potassium Potassium 5.0 Chloride 104 Carbon Dioxide 21 Anion Gap 11 BUN 69 H Creatinine 5.08 H* D Est Cr Clr Drug Dosing 17.8 eGFR 11.88 BUN/Creatinine Ratio 13.6 Glucose 102 H POC Glucose Lactate Calcium 7.4 L Phosphorus 5.1 H Iron 93 TIBC 148 L Unsaturated IBC 55 L Transferrin % Sat 63 H Ferritin 1063.5 H Total Bilirubin 1.4 H Direct Bilirubin 0.7 H AST 55 H ALT 12 Alkaline Phosphatase 85 Ammonia Lactate Dehydrogenase C-Reactive Protein Total Protein 5.2 L Albumin 2.6 L Globulin Albumin/Globulin Ratio Triglycerides 286 H Cholesterol 115 LDL Cholesterol, Calc 47 VLDL Cholesterol, Calc 57 H HDL Cholesterol 11 Cholesterol/HDL Ratio 10.5 H Serotonin Release Assay Procalcitonin Phenytoin Valproic Acid 36 L Heparin Depend Plt Ab OLIMPIA UFH Low Dose 0.1 OLIMPIA UFH Low Dose 0.5 OLIMPIA UFH High Dose OLIMPIA Unfract Heparin Anaplasma Smear A. phagocytophilum DNA Babesia Smear Babesia microti DNA PCR Lyme Disease Screen Ref Lab Test Result 06/29/24 06/29/24 07:10 08:34 WBC RBC Hgb POC Hgb Hct POC Hct MCV MCH MCHC RDW Std Deviation RDW Coeff of Pepper Plt Count MPV Immature Gran % (Auto) Neut % (Auto) Lymph % (Auto) [place] % (Auto) Eos % (Auto) Baso % (Auto) Neut # (Auto) Lymph # (Auto) [place] # (Auto) Eos # (Auto) Baso # (Auto) Immature Gran # (Auto) Platelet Estimate Polychromasia Peripher Smr Path Cons PT INR APTT 96 H* PTT Ratio 3.6 Fibrinogen Heparin Anti-Xa, Unfract Specimen Type Sample Site POC pH POC pCO2 POC pO2 POC HCO3 POC Total CO2 POC Base Excess O2 Sat Pulse Oximetry ABG pH (Temp Correct) ABG pCO2 (Temp Corrct POC ABG pO2 at Pt Temp POC ABG O2 Sat Vipin Test O2 Delivery Device POC FiO2 EPAP IPAP POC Sodium Sodium POC Potassium Potassium Chloride Carbon Dioxide Anion Gap BUN Creatinine Est Cr Clr Drug Dosing eGFR BUN/Creatinine Ratio Glucose POC Glucose 108 H Lactate Calcium Phosphorus Iron TIBC Unsaturated IBC Transferrin % Sat Ferritin Total Bilirubin Direct Bilirubin AST ALT Alkaline Phosphatase Ammonia Lactate Dehydrogenase C-Reactive Protein Total Protein Albumin Globulin Albumin/Globulin Ratio Triglycerides Cholesterol LDL Cholesterol, Calc VLDL Cholesterol, Calc HDL Cholesterol Cholesterol/HDL Ratio Serotonin Release Assay Procalcitonin Phenytoin Cancelled Valproic Acid Heparin Depend Plt Ab OLIMPIA UFH Low Dose 0.1 OLIMPIA UFH Low Dose 0.5 OLIMPIA UFH High Dose OLIMPIA Unfract Heparin Anaplasma Smear A. phagocytophilum DNA Babesia Smear Babesia microti DNA PCR Lyme Disease Screen Ref Lab Test Result Pending PG Care Time/CCT Total # of Minutes Spent Total Time Spent with Patient: Total time spent is greater than 50% in coordination of care (as documented) at patient's floor/unit and/or counseling patient: Coding Level of Care Code 87363 SUB INP/OBS CARE 3/50MIN Diagnoses KEYANNA (acute kidney injury) N17.9 Altered mental status R41.82 Septic shock A41.9; R65.21 Anemia D64.9
[2024-06-29] MEDS: allopurinoL 100 MG TAB PO SCH (12:12)
[2024-06-29 12:33] LABS: Hepatitis B Surface Ab Quant < 3.00 mIU/mL (>or=10mIU/mL Immune); Hepatitis B Surface Antibody Non-Immune
[2024-06-29 12:37] LABS: Partial Thromboplastin Time 82 Seconds (21-31)
[2024-06-29 12:50] LABS: Hep B Surface Ag with confirm Negative (Negative)
--- NOTE | 2024-06-29 13:06 | Pharmacy Report ---
Pharmacy Anticoagulant Consult - Date of Service June 29, 2024 - Pharmacy Dosing Scope Pharmacy is consulted to initiate/evaluate argatroban IV dosing therapy, order appropriate labs and adjust drug dose/frequency. - Subjective The patient is a 63 year old M admitted on 06/25/24 23:35 for METABOLIC ENCEPHALOPATHY, CUTANEOUS ABSCESS. 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 - Assessment & Plan Regarding THERAPEUTIC argatroban Argatroban initiated @ 1 mcg/kg/min. Cathrynald PTT Ratio 1.5-2.0 per provider. Held ~0530 after PTT ratio returned >4.9. Will continue to hold until PTT ratio in appropriate range. Labs: Next PTT 06/29 @1330 We will continue to monitor this patient and make adjustments as needed. Thank you.
--- NOTE | 2024-06-29 15:27 | Infectious Disease Progress Nt ---
Date of Service June 29, 2024 Assessment & Plan (1) Cutaneous abscess of back excluding buttocks: (2) Parainfluenza type 1 infection: (3) Acute confusion: Plan ID Problem List: 1. L psoas hematoma c/b abscess s/p IR drainage at [facility] 01/2024 s/p numerous courses of Augmentin, ongoing draining wound 2. Parainfluenza 1 infection 3. Altered mental status/encephalopathy 4. Intellectual disability Impression: Eliseo Smith is a 63-year-old man who resides at [facility] with history of intellectual disability seizure disorder, T2DM, DVT on AC, BPH, multiple recent admissions to [facility] (11/2212/18/23 after a fall c/b T8 spinal fracture and nasal bone fracture; found to have hematomas of L psoas and L quadratus muscle), 01/2024 presented to [facility] then transferred to [facility] for drainage of large L psoas abscess (reportedly with negative Cx and treated with empiric Augment), readmitted 06/1206/16/24 with draining cutaneous back wound s/p additional 2- week course of Augmentin. Pt presents again to [facility] on 06/25/24 for confusion, fever, vomiting, and redness and drainage from his L back wound. Recent medical history: - The patient was admitted to [facility] from 11/2212/18/23 for a T8 spinal fracture and nasal bone fracture after a fall; no operative management was pursued. His hospitalization was c/b pneumoniae with BAL Cx + Klebsiella pneumonia (S- ceftriaxone). During that admission, due to abdominal pain, CT A/P was performed which showed hematomas of L psoas and L quadratus muscle no intervention was pursued at that time but it was noted that patient may benefit from IR aspiration were he to develop an abscess. - The patient was then readmitted to [facility] on 01/24/24 with confusing, CT showing left lateral peritoneal collection of 7.4 X 3.1 cm; extending from left psoas muscle concerning for psoas abscess. Lumbar MRI did not show any acute bony abnormality involving the lumbar spine, no MRI evidence of epidural abscess (only visualized the retroperitoneal L psoas collection). The patient was tra nsferred to [facility] for IR evaluation; reportedly cultures from this was negative and was treated with an empiric course of Augmentin. - The patient was admitted to [facility] from 06/1206/16/24. At that visit, he was noted to have ongoing drainage of what appeared to be an infected draining sebaceous cyst left lower back. CT scan negative for fistulous tract between the back and the psoas muscle. Notably CT A/P from 06/14 showed that the patient had a tract from his prior L flank drain with associated enhancement (focus measuring 4.9 x 3.5 cm) of stranding and fluid posterior to L kidney involving L psoas muscle; felt to be phlegmon notably without drainable fluid collection per radiology. He was treated briefly with doxycycline and pip-tazo while inpatient, and discharged on a 2-week course of Augmentin. He presents again to [facility] on 06/25/24 for confusion. The patients family was not at bedside at the time of evaluation, but reported that the patients L back wound had increased drainage and redness for the past ~3 days prior to admission. They also reported that the patient had fever and vomitinga t home. Upon presentation, VS T37.4 HR 106 BP 90/73. Labs showed WBC 9.27 Hgb 12.3 plt 123 Cr 0.84 AST 28 ALT 37 alk phos 141 tbili 0.2. Respiratory viral panel + Parainfluenza 1. CT A/P with contrast showed a moderate amount of fecal matter in the sigmoid colon and rectum with mild fluid distention of the more proximal colonic lumen; no reported psoas abscess or fistula. He was placed on daptomycin and pip-tazo. Surgery was consulted and felt that the wound is self-draining and without superficial abscess on CT; no indication for surgery at this time. 06/26 TTE was technically limited; EF 55-60%, limited valvular vegetation though without e/o vegetation, regurgitation, or stenosis. On 06/26, TMax 38.4 and WBC 15.05. At time of evaluation, without family at bedside. On 06/29,Tmax 36.6, wbc 6.75 Discussion Pt with ongoing drainage from L back wound (and reportedly with worsened erythema around the site) recently. This is unusual given that pt has had drainage (with reportedly negative Cx) back in 01/2024, multiple courses of Augmentin, and improving CT A/P findings, however with an ongoing wound. Considered possibility of endovascular infection (BCx NGTD; TTE low quality but without vegetation), spinal infection (prior MRI L-spine 01/2024 without epidural abscess). Also considered possibility of atypical organisms (e.g., NTMs, Actino, Nocardia) that were not captured on culture. Yet, pt had signs of systemic illness given fever and leukocytosis; although he concurrently has RVP + Parainfluenza 1 so some of this may be attributable to viral illness. Can continue broad coverage with daptomycin and pip-tazo for now. Would also send AFB and fungal Cx as well as HIV testing. Recommendations: - Continue broad coverage with daptomycin and pip-tazo for now - F/u 06/26 bedside wound bacterial Cx (obtained from fresh draining fluid) - Obtain 06/26 AFB and fungal wound Cx from fresh draining fluid - F/u 06/25 BCx - Followup HIV ID will continue to follow, Admission and Anticipated Discharge Date Admission Date: June 25, 2024 Subjective This patient recommendation is based on a telemedicine consult request which was completed asynchronously through chart review and information provided by the primary physician. The patient was not seen or examined today. The evaluation is consultative in nature and all patient care and treatment decisions can either be accepted or rejected by the patient's primary hospital-based treating physician using their own independent medical judgment for their patient. Time Spent Reviewing Chart: 21 - 30 minutes afebrile. leukocytosis resolved Results & Data Vital Signs (Past 12 Hours) Vital Signs Temp Pulse Pulse Resp BP BP Pulse Ox 06/29/24 15:05 83 06/29/24 14:00 06/29/24 12:48 36.6 C 83 18 98/57 L 94 06/29/24 09:03 94 H 24 96 06/29/24 09:01 117/68 06/29/24 08:54 91 H 24 99 06/29/24 08:33 91 H 23 99 06/29/24 08:03 88 24 98 06/29/24 08:00 06/29/24 08:00 104/59 L 06/29/24 07:57 88 23 99 06/29/24 07:33 89 21 98 06/29/24 07:21 96/60 L 06/29/24 07:21 87 17 99 06/29/24 07:09 87 25 H 96 06/29/24 07:01 85/59 L 06/29/24 06:45 86 26 H 98 06/29/24 06:09 82 16 100 06/29/24 05:42 82 22 100 06/29/24 04:36 85 22 100 06/29/24 04:30 105/63 06/29/24 04:06 87 26 H 06/29/24 04:00 86 17 06/29/24 03:41 85 18 99 06/29/24 03:30 81 24 O2 Del Method O2 Flow Rate FiO2 06/29/24 15:05 06/29/24 14:00 Room Air 06/29/24 12:48 Room Air 06/29/24 09:03 06/29/24 09:01 06/29/24 08:54 06/29/24 08:33 06/29/24 08:03 06/29/24 08:00 Nasal Cannula 2 06/29/24 08:00 06/29/24 07:57 06/29/24 07:33 06/29/24 07:21 06/29/24 07:21 06/29/24 07:09 06/29/24 07:01 06/29/24 06:45 06/29/24 06:09 06/29/24 05:42 06/29/24 04:36 06/29/24 04:30 06/29/24 04:06 06/29/24 04:00 06/29/24 03:41 30 06/29/24 03:30 Laboratory Results Laboratory Results - last 48 hr 06/27/24 06/27/24 06/27/24 16:10 16:56 17:20 WBC RBC Hgb POC Hgb Hct POC Hct MCV MCH MCHC RDW Std Deviation RDW Coeff of Pepper Plt Count MPV Immature Gran % (Auto) Neut % (Auto) Lymph % (Auto) [place] % (Auto) Eos % (Auto) Baso % (Auto) Neut # (Auto) Lymph # (Auto) [place] # (Auto) Eos # (Auto) Baso # (Auto) Immature Gran # (Auto) Absolute Nucleated RBC Nucleated RBC % (auto) Platelet Estimate Polychromasia Peripher Smr Path Cons PT INR APTT PTT Ratio Fibrinogen Heparin Anti-Xa, Unfract 0.63 Specimen Type Sample Site POC pH POC pCO2 POC pO2 POC HCO3 POC Total CO2 POC Base Excess O2 Sat Pulse Oximetry ABG pH (Temp Correct) ABG pCO2 (Temp Corrct POC ABG pO2 at Pt Temp POC ABG O2 Sat Vipin Test O2 Delivery Device POC FiO2 EPAP IPAP POC Sodium Sodium 134 L POC Potassium Potassium 4.6 Chloride 103 Carbon Dioxide 21 Anion Gap 10 BUN 50 H Creatinine 3.33 H D Est Cr Clr Drug Dosing 27.2 eGFR 19.72 BUN/Creatinine Ratio 15.0 Glucose 178 H POC Glucose 226 H Lactate Calcium 7.7 L Phosphorus Iron TIBC Unsaturated IBC Transferrin % Sat Ferritin Total Bilirubin Direct Bilirubin AST ALT Alkaline Phosphatase Ammonia Lactate Dehydrogenase C-Reactive Protein Total Protein Albumin Globulin Albumin/Globulin Ratio Triglycerides Cholesterol LDL Cholesterol, Calc VLDL Cholesterol, Calc HDL Cholesterol Cholesterol/HDL Ratio Procalcitonin Urine Color Nina Urine Appearance Turbid A Urine pH 5.0 Ur Specific Gravel Switch 1.015 Urine Protein 2+ H Urine Glucose (UA) Trace H Urine Ketones Trace H Urine Blood 3+ H Urine Nitrite Negative Urine Bilirubin 1+ H Urine Urobilinogen Negative Ur Leukocyte Esterase Negative Urine RBC >20 H Urine WBC 0-5 Ur Epithelial Cells 0-2 Amorphous Sediment Present A Urine Bacteria 1+ H Phenytoin Valproic Acid Anaplasma Smear Babesia Smear Lyme Disease Screen Hep Bs Antigen Hep Bs Antibody Hep Bs Antibody, Quant 06/27/24 06/28/24 06/28/24 20:10 05:51 06:58 WBC Cancelled 8.12 RBC Cancelled 2.58 L Hgb Cancelled 8.3 L D POC Hgb Hct Cancelled 25.1 L POC Hct MCV Cancelled 97.3 MCH Cancelled 32.2 MCHC Cancelled 33.1 RDW Std Deviation Cancelled 57.4 H RDW Coeff of Pepper Cancelled 16.0 H Plt Count Cancelled 37 L MPV Cancelled 12.3 Immature Gran % (Auto) Neut % (Auto) Lymph % (Auto) [place] % (Auto) Eos % (Auto) Baso % (Auto) Neut # (Auto) Lymph # (Auto) [place] # (Auto) Eos # (Auto) Baso # (Auto) Immature Gran # (Auto) Absolute Nucleated RBC Cancelled Nucleated RBC % (auto) Cancelled Platelet Estimate Cancelled Polychromasia Peripher Smr Path Cons PT INR APTT PTT Ratio Fibrinogen Heparin Anti-Xa, Unfract 0.62 Specimen Type Sample Site POC pH POC pCO2 POC pO2 POC HCO3 POC Total CO2 POC Base Excess O2 Sat Pulse Oximetry ABG pH (Temp Correct) ABG pCO2 (Temp Corrct POC ABG pO2 at Pt Temp POC ABG O2 Sat Vipin Test O2 Delivery Device POC FiO2 EPAP IPAP POC Sodium Sodium 134 L POC Potassium Potassium 5.1 Chloride 104 Carbon Dioxide 20 L Anion Gap 10 BUN 57 H Creatinine 3.85 H D Est Cr Clr Drug Dosing 23.5 eGFR 16.57 BUN/Creatinine Ratio 14.8 Glucose 153 H POC Glucose 114 H Lactate Calcium 7.5 L Phosphorus Iron TIBC Unsaturated IBC Transferrin % Sat Ferritin Total Bilirubin Direct Bilirubin AST ALT Alkaline Phosphatase Ammonia Lactate Dehydrogenase C-Reactive Protein Total Protein Albumin Globulin Albumin/Globulin Ratio Triglycerides Cholesterol LDL Cholesterol, Calc VLDL Cholesterol, Calc HDL Cholesterol Cholesterol/HDL Ratio Procalcitonin Urine Color Urine Appearance Urine pH Ur Specific Gravel Switch Urine Protein Urine Glucose (UA) Urine Ketones Urine Blood Urine Nitrite Urine Bilirubin Urine Urobilinogen Ur Leukocyte Esterase Urine RBC Urine WBC Ur Epithelial Cells Amorphous Sediment Urine Bacteria Phenytoin Valproic Acid Anaplasma Smear Babesia Smear Lyme Disease Screen Hep Bs Antigen Hep Bs Antibody Hep Bs Antibody, Quant 06/28/24 06/28/24 06/28/24 07:04 08:26 11:59 WBC RBC Hgb POC Hgb Hct POC Hct MCV MCH MCHC RDW Std Deviation RDW Coeff of Pepper Plt Count MPV Immature Gran % (Auto) Neut % (Auto) Lymph % (Auto) [place] % (Auto) Eos % (Auto) Baso % (Auto) Neut # (Auto) Lymph # (Auto) [place] # (Auto) Eos # (Auto) Baso # (Auto) Immature Gran # (Auto) Absolute Nucleated RBC Nucleated RBC % (auto) Platelet Estimate Polychromasia Peripher Smr Path Cons PT INR APTT PTT Ratio Fibrinogen Heparin Anti-Xa, Unfract 0.60 Specimen Type Sample Site POC pH POC pCO2 POC pO2 POC HCO3 POC Total CO2 POC Base Excess O2 Sat Pulse Oximetry ABG pH (Temp Correct) ABG pCO2 (Temp Corrct POC ABG pO2 at Pt Temp POC ABG O2 Sat Vipin Test O2 Delivery Device POC FiO2 EPAP IPAP POC Sodium Sodium POC Potassium Potassium Chloride Carbon Dioxide Anion Gap BUN Creatinine Est Cr Clr Drug Dosing eGFR BUN/Creatinine Ratio Glucose POC Glucose 185 H 176 H Lactate Calcium Phosphorus Iron TIBC Unsaturated IBC Transferrin % Sat Ferritin Total Bilirubin Direct Bilirubin AST ALT Alkaline Phosphatase Ammonia Lactate Dehydrogenase C-Reactive Protein Total Protein Albumin Globulin Albumin/Globulin Ratio Triglycerides Cholesterol LDL Cholesterol, Calc VLDL Cholesterol, Calc HDL Cholesterol Cholesterol/HDL Ratio Procalcitonin Urine Color Urine Appearance Urine pH Ur Specific [place]vel Switch Urine Protein Urine Glucose (UA) Urine Ketones Urine Blood Urine Nitrite Urine Bilirubin Urine Urobilinogen Ur Leukocyte Esterase Urine RBC Urine WBC Ur Epithelial Cells Amorphous Sediment Urine Bacteria Phenytoin Valproic Acid Anaplasma Smear Babesia Smear Lyme Disease Screen Hep Bs Antigen Hep Bs Antibody Hep Bs Antibody, Quant 06/28/24 06/28/24 06/28/24 16:21 16:26 17:28 WBC 6.29 RBC 2.71 L Hgb 8.5 L POC Hgb 8.5 L Hct 26.3 L POC Hct 25 L MCV 97.0 MCH 31.4 MCHC 32.3 RDW Std Deviation 57.5 H RDW Coeff of Pepper 16.1 H Plt Count 28 L* MPV 10.7 Immature Gran % (Auto) 0.3 Neut % (Auto) 76.6 Lymph % (Auto) 9.5 [place] % (Auto) 4.1 Eos % (Auto) 9.5 Baso % (Auto) 0.0 Neut # (Auto) 4.81 Lymph # (Auto) 0.60 L [place] # (Auto) 0.26 Eos # (Auto) 0.60 H Baso # (Auto) 0.00 Immature Gran # (Auto) 0.02 Absolute Nucleated RBC Nucleated RBC % (auto) Platelet Estimate Signific. Decreased L Polychromasia Peripher Smr Path Cons PT INR APTT PTT Ratio Fibrinogen Heparin Anti-Xa, Unfract Specimen Type Arterial Sample Site POC pH 7.20 L POC pCO2 44 POC pO2 62 L POC HCO3 17 L POC Total CO2 19 L POC Base Excess -11.0 L O2 Sat Pulse Oximetry ABG pH (Temp Correct) ABG pCO2 (Temp Corrct POC ABG pO2 at Pt Temp POC ABG O2 Sat 86.0 L Vipin Test O2 Delivery Device POC FiO2 EPAP IPAP POC Sodium 133 L Sodium 135 L POC Potassium 4.9 Potassium 5.1 Chloride 102 Carbon Dioxide 23 Anion Gap 10 BUN 61 H Creatinine 4.47 H D Est Cr Clr Drug Dosing 20.2 eGFR 13.85 BUN/Creatinine Ratio 13.6 Glucose 170 H POC Glucose 172 H Lactate 1.0 Calcium 7.3 L Phosphorus Iron TIBC Unsaturated IBC Transferrin % Sat Ferritin Total Bilirubin 1.5 H Direct Bilirubin AST 55 H ALT 13 Alkaline Phosphatase 75 Ammonia 24.0 Lactate Dehydrogenase 1005 H C-Reactive Protein Total Protein 5.0 L D Albumin 2.6 L Globulin 2.4 L Albumin/Globulin Ratio 1.1 Triglycerides Cholesterol LDL Cholesterol, Calc VLDL Cholesterol, Calc HDL Cholesterol Cholesterol/HDL Ratio Procalcitonin Urine Color Urine Appearance Urine pH Ur Specific [place]vel Switch Urine Protein Urine Glucose (UA) Urine Ketones Urine Blood Urine Nitrite Urine Bilirubin Urine Urobilinogen Ur Leukocyte Esterase Urine RBC Urine WBC Ur Epithelial Cells Amorphous Sediment Urine Bacteria Phenytoin Valproic Acid Anaplasma Smear Babesia Smear Lyme Disease Screen Hep Bs Antigen Hep Bs Antibody Hep Bs Antibody, Quant 06/28/24 06/28/24 06/28/24 18:26 21:35 22:17 WBC 5.11 RBC 3.32 L Hgb 10.7 L POC Hgb Hct 31.7 L POC Hct MCV 95.5 MCH 32.2 MCHC 33.8 RDW Std Deviation 57.1 H RDW Coeff of Pepper 16.0 H Plt Count 29 L* MPV 12.1 Immature Gran % (Auto) 0.2 Neut % (Auto) 72.0 Lymph % (Auto) 11.7 [place] % (Auto) 5.1 Eos % (Auto) 10.8 Baso % (Auto) 0.2 Neut # (Auto) 3.68 Lymph # (Auto) 0.60 L [place] # (Auto) 0.26 Eos # (Auto) 0.55 H Baso # (Auto) 0.01 Immature Gran # (Auto) 0.01 Absolute Nucleated RBC Nucleated RBC % (auto) Platelet Estimate Polychromasia Peripher Smr Path Cons PT 17.9 H 17.4 H INR 1.7 H 1.7 H APTT 112 H* 67 H PTT Ratio 4.2 2.5 Fibrinogen 504 H Heparin Anti-Xa, Unfract Specimen Type Sample Site POC pH POC pCO2 POC pO2 POC HCO3 POC Total CO2 POC Base Excess O2 Sat Pulse Oximetry ABG pH (Temp Correct) ABG pCO2 (Temp Corrct POC ABG pO2 at Pt Temp POC ABG O2 Sat Vipin Test O2 Delivery Device POC FiO2 EPAP IPAP POC Sodium Sodium 138 POC Potassium Potassium 5.0 Chloride 106 Carbon Dioxide 20 L Anion Gap 12 H BUN 62 H Creatinine 4.50 H Est Cr Clr Drug Dosing 20.1 eGFR 13.74 BUN/Creatinine Ratio 13.8 Glucose 150 H POC Glucose 123 H Lactate Calcium 6.9 L Phosphorus Iron TIBC Unsaturated IBC Transferrin % Sat Ferritin Total Bilirubin 1.4 H Direct Bilirubin AST 56 H ALT 13 Alkaline Phosphatase 76 Ammonia Lactate Dehydrogenase C-Reactive Protein 25.77 H Total Protein 5.0 L Albumin 2.5 L Globulin 2.5 Albumin/Globulin Ratio 1.0 Triglycerides Cholesterol LDL Cholesterol, Calc VLDL Cholesterol, Calc HDL Cholesterol Cholesterol/HDL Ratio Procalcitonin > 100.00 H Urine Color Urine Appearance Urine pH Ur Specific [place]vel Switch Urine Protein Urine Glucose (UA) Urine Ketones Urine Blood Urine Nitrite Urine Bilirubin Urine Urobilinogen Ur Leukocyte Esterase Urine RBC Urine WBC Ur Epithelial Cells Amorphous Sediment Urine Bacteria Phenytoin Valproic Acid Anaplasma Smear See Comment Babesia Smear See Comment Lyme Disease Screen Negative Hep Bs Antigen Hep Bs Antibody Hep Bs Antibody, Quant 06/29/24 06/29/24 06/29/24 01:17 03:56 04:05 WBC 6.90 RBC 2.48 L Hgb 7.9 L POC Hgb 7.1 L Hct 24.0 L POC Hct 21 L MCV 96.8 MCH 31.9 MCHC 32.9 RDW Std Deviation 57.0 H RDW Coeff of Pepper 15.9 H Plt Count 32 L MPV 11.1 Immature Gran % (Auto) 0.1 Neut % (Auto) 64.9 Lymph % (Auto) 15.4 [place] % (Auto) 5.8 Eos % (Auto) 13.5 Baso % (Auto) 0.3 Neut # (Auto) 4.48 Lymph # (Auto) 1.06 L [place] # (Auto) 0.40 Eos # (Auto) 0.93 H Baso # (Auto) 0.02 Immature Gran # (Auto) 0.01 Absolute Nucleated RBC Nucleated RBC % (auto) Platelet Estimate Polychromasia 2+ Peripher Smr Path Cons PT INR APTT > 139 H* PTT Ratio > 4.9 Fibrinogen Heparin Anti-Xa, Unfract < 0.10 L Specimen Type Arterial Sample Site L Radial POC pH 7.30 L POC pCO2 39 POC pO2 114 H POC HCO3 19 POC Total CO2 20 L POC Base Excess -7.0 O2 Sat Pulse Oximetry 98 ABG pH (Temp Correct) 7.299 L ABG pCO2 (Temp Corrct 39 POC ABG pO2 at Pt Temp 114 POC ABG O2 Sat 98.0 H Vipin Test Pass O2 Delivery Device BIPAP POC FiO2 30 EPAP 6 IPAP 12 POC Sodium 135 Sodium 136 POC Potassium 4.9 Potassium 5.0 Chloride 104 Carbon Dioxide 21 Anion Gap 11 BUN 69 H Creatinine 5.08 H* D Est Cr Clr Drug Dosing 17.8 eGFR 11.88 BUN/Creatinine Ratio 13.6 Glucose 102 H POC Glucose 112 H Lactate Calcium 7.4 L Phosphorus 5.1 H Iron 93 TIBC 148 L Unsaturated IBC 55 L Transferrin % Sat 63 H Ferritin 1063.5 H Total Bilirubin 1.4 H Direct Bilirubin 0.7 H AST 55 H ALT 12 Alkaline Phosphatase 85 Ammonia Lactate Dehydrogenase C-Reactive Protein Total Protein 5.2 L Albumin 2.6 L Globulin Albumin/Globulin Ratio Triglycerides 286 H Cholesterol 115 LDL Cholesterol, Calc 47 VLDL Cholesterol, Calc 57 H HDL Cholesterol 11 Cholesterol/HDL Ratio 10.5 H Procalcitonin Urine Color Urine Appearance Urine pH Ur Specific [place]vel Switch Urine Protein Urine Glucose (UA) Urine Ketones Urine Blood Urine Nitrite Urine Bilirubin Urine Urobilinogen Ur Leukocyte Esterase Urine RBC Urine WBC Ur Epithelial Cells Amorphous Sediment Urine Bacteria Phenytoin Valproic Acid 36 L Anaplasma Smear Babesia Smear L[place] Disease Screen Hep Bs Antigen Hep Bs Antibody Hep Bs Antibody, Quant 06/29/24 06/29/24 06/29/24 05:52 06:46 07:10 WBC RBC Hgb 8.1 L POC Hgb Hct POC Hct MCV MCH MCHC RDW Std Deviation RDW Coeff of Pepper Plt Count MPV Immature Gran % (Auto) Neut % (Auto) Lymph % (Auto) [place] % (Auto) Eos % (Auto) Baso % (Auto) Neut # (Auto) Lymph # (Auto) [place] # (Auto) Eos # (Auto) Baso # (Auto) Immature Gran # (Auto) Absolute Nucleated RBC Nucleated RBC % (auto) Platelet Estimate Polychromasia Peripher Smr Path Cons PT INR APTT > 139 H* PTT Ratio > 4.9 Fibrinogen Heparin Anti-Xa, Unfract Specimen Type Sample Site POC pH POC pCO2 POC pO2 POC HCO3 POC Total CO2 POC Base Excess O2 Sat Pulse Oximetry ABG pH (Temp Correct) ABG pCO2 (Temp Corrct POC ABG pO2 at Pt Temp POC ABG O2 Sat Vipin Test O2 Delivery Device POC FiO2 EPAP IPAP POC Sodium Sodium POC Potassium Potassium Chloride Carbon Dioxide Anion Gap BUN Creatinine Est Cr Clr Drug Dosing eGFR BUN/Creatinine Ratio Glucose POC Glucose 108 H Lactate Calcium Phosphorus Iron TIBC Unsaturated IBC Transferrin % Sat Ferritin Total Bilirubin Direct Bilirubin AST ALT Alkaline Phosphatase Ammonia Lactate Dehydrogenase C-Reactive Protein Total Protein Albumin Globulin Albumin/Globulin Ratio Triglycerides Cholesterol LDL Cholesterol, Calc VLDL Cholesterol, Calc HDL Cholesterol Cholesterol/HDL Ratio Procalcitonin Urine Color Urine Appearance Urine pH Ur Specific [place]vel Switch Urine Protein Urine Glucose (UA) Urine Ketones Urine Blood Urine Nitrite Urine Bilirubin Urine Urobilinogen Ur Leukocyte Esterase Urine RBC Urine WBC Ur Epithelial Cells Amorphous Sediment Urine Bacteria Phenytoin Valproic Acid Anaplasma Smear Babesia Smear Lyme Disease Screen Hep Bs Antigen Hep Bs Antibody Hep Bs Antibody, Quant 06/29/24 06/29/24 06/29/24 08:34 11:01 11:23 WBC RBC Hgb POC Hgb Hct POC Hct MCV MCH MCHC RDW Std Deviation RDW Coeff of Pepper Plt Count MPV Immature Gran % (Auto) Neut % (Auto) Lymph % (Auto) [place] % (Auto) Eos % (Auto) Baso % (Auto) Neut # (Auto) Lymph # (Auto) [place] # (Auto) Eos # (Auto) Baso # (Auto) Immature Gran # (Auto) Absolute Nucleated RBC Nucleated RBC % (auto) Platelet Estimate Polychromasia Peripher Smr Path Cons PT INR APTT 96 H* 82 H* PTT Ratio 3.6 3.0 Fibrinogen Heparin Anti-Xa, Unfract Specimen Type Sample Site POC pH POC pCO2 POC pO2 POC HCO3 POC Total CO2 POC Base Excess O2 Sat Pulse Oximetry ABG pH (Temp Correct) ABG pCO2 (Temp Corrct POC ABG pO2 at Pt Temp POC ABG O2 Sat Vipin Test O2 Delivery Device POC FiO2 EPAP IPAP POC Sodium Sodium POC Potassium Potassium Chloride Carbon Dioxide Anion Gap BUN Creatinine Est Cr Clr Drug Dosing eGFR BUN/Creatinine Ratio Glucose POC Glucose Lactate Calcium Phosphorus Iron TIBC Unsaturated IBC Transferrin % Sat Ferritin Total Bilirubin Direct Bilirubin AST ALT Alkaline Phosphatase Ammonia Lactate Dehydrogenase C-Reactive Protein Total Protein Albumin Globulin Albumin/Globulin Ratio Triglycerides Cholesterol LDL Cholesterol, Calc VLDL Cholesterol, Calc HDL Cholesterol Cholesterol/HDL Ratio Procalcitonin Urine Color Urine Appearance Urine pH Ur Specific [place]vel Switch Urine Protein Urine Glucose (UA) Urine Ketones Urine Blood Urine Nitrite Urine Bilirubin Urine Urobilinogen Ur Leukocyte Esterase Urine RBC Urine WBC Ur Epithelial Cells Amorphous Sediment Urine Bacteria Phenytoin Cancelled Valproic Acid Anaplasma Smear Babesia Smear Lyme Disease Screen Hep Bs Antigen Negative Hep Bs Antibody Non-Immune Hep Bs Antibody, Quant < 3.00 06/29/24 11:25 WBC RBC Hgb POC Hgb Hct POC Hct MCV MCH MCHC RDW Std Deviation RDW Coeff of Pepper Plt Count MPV Immature Gran % (Auto) Neut % (Auto) Lymph % (Auto) [place] % (Auto) Eos % (Auto) Baso % (Auto) Neut # (Auto) Lymph # (Auto) [place] # (Auto) Eos # (Auto) Baso # (Auto) Immature Gran # (Auto) Absolute Nucleated RBC Nucleated RBC % (auto) Platelet Estimate Polychromasia Peripher Smr Path Cons PT INR APTT PTT Ratio Fibrinogen Heparin Anti-Xa, Unfract Specimen Type Sample Site POC pH POC pCO2 POC pO2 POC HCO3 POC Total CO2 POC Base Excess O2 Sat Pulse Oximetry ABG pH (Temp Correct) ABG pCO2 (Temp Corrct POC ABG pO2 at Pt Temp POC ABG O2 Sat Vipin Test O2 Delivery Device POC FiO2 EPAP IPAP POC Sodium Sodium POC Potassium Potassium Chloride Carbon Dioxide Anion Gap BUN Creatinine Est Cr Clr Drug Dosing eGFR BUN/Creatinine Ratio Glucose POC Glucose 183 H Lactate Calcium Phosphorus Iron TIBC Unsaturated IBC Transferrin % Sat Ferritin Total Bilirubin Direct Bilirubin AST ALT Alkaline Phosphatase Ammonia Lactate Dehydrogenase C-Reactive Protein Total Protein Albumin Globulin Albumin/Globulin Ratio Triglycerides Cholesterol LDL Cholesterol, Calc VLDL Cholesterol, Calc HDL Cholesterol Cholesterol/HDL Ratio Procalcitonin Urine Color Urine Appearance Urine pH Ur Specific [place]vel Switch Urine Protein Urine Glucose (UA) Urine Ketones Urine Blood Urine Nitrite Urine Bilirubin Urine Urobilinogen Ur Leukocyte Esterase Urine RBC Urine WBC Ur Epithelial Cells Amorphous Sediment Urine Bacteria Phenytoin Valproic Acid Anaplasma Smear Babesia Smear Lyme Disease Screen Hep Bs Antigen Hep Bs Antibody Hep Bs Antibody, Quant Diagnostic Findings Microbiology 06/27/24 17:20 Urine,Straight Cath Urine Culture - Final No growth - less than 1,000 colonies/mL. 06/27/24 00:07 Blood Aerobic Blood Culture - Preliminary No growth in Aerobic bottle after 48 hours. 06/27/24 00:07 Blood Anaerobic Blood Culture - Preliminary No growth in Anaerobic bottle after 48 hours. 06/27/24 00:07 Blood Aerobic Blood Culture - Preliminary No growth in Aerobic bottle after 48 hours. 06/27/24 00:07 Blood Anaerobic Blood Culture - Preliminary No growth in Anaerobic bottle after 48 hours. 06/27/24 02:10 Tissue,Undefined Fungal Smear - Final 06/27/24 02:10 Tissue,Undefined Fungal Culture - Preliminary No yeast or fungus isolated - Report 1, Additional Report to Follow. 06/26/24 00:04 Back Gram Stain - Final 06/26/24 00:04 Back Wound Culture - Final Low counts mixed probable skin microbiota. No further identifications or sensitivities to follow. 06/25/24 23:38 Blood Aerobic Blood Culture - Preliminary No growth in Aerobic bottle after 48 hours. 06/25/24 23:38 Blood Anaerobic Blood Culture - Preliminary No growth in Anaerobic bottle after 48 hours. 06/25/24 23:44 Blood Aerobic Blood Culture - Preliminary No growth in Aerobic bottle after 48 hours. 06/25/24 23:44 Blood Anaerobic Blood Culture - Preliminary No growth in Anaerobic bottle after 48 hours. Venous Doppler Study 06/26/24 13:43 LEFT LOWER EXTREMITY VENOUS DOPPLER CLINICAL HISTORY: Left leg pain and swelling. Evaluate for DVT. COMPARISON STUDY: Bilateral lower extremity venous Doppler ultrasound December 12, 2023. TECHNIQUE: Sonography of the deep venous system of the left lower extremity was performed. Compression and augmentation were evaluated. FINDINGS: The left common femoral vein is patent. Deep venous thrombus within the left superficial femoral, popliteal, posterior tibial, peroneal and anterior tibial veins is noted. Thrombus is increased in extent when compared to ultrasound of December 22, 2023. Stranding within several vessels is again noted. The findings suggest acute or chronic deep venous thrombus. IMPRESSION: Deep venous thrombus within the left superficial femoral, popliteal, posterior tibial, peroneal and anterior tibial veins, increased in extent since prior ultrasound. These findings favor acute on chronic deep venous thrombus within the left lower extremity. ACT 112: Negative or not required by law. Electronically signed by: Omari Foreman M.D. 06/26/2024 3:29 PM Chest X-Ray 06/28/24 08:48 XR chest 1V portable CLINICAL HISTORY: Hypoxia. COMPARISON STUDY: Chest radiograph June 25, 2024. Chest CT November 26, 2023. FINDINGS: Moderate elevation of the right hemidiaphragm is again noted. There is no consolidation. Linear left basilar densities favor atelectasis. There is no evidence for pulmonary edema. There is no pneumothorax. Cardiomediastinal silhouette is stable. IMPRESSION: 1. No significant change in appearance of the chest. Stable elevation of the right hemidiaphragm. 2. Left basilar density suggestive of atelectasis. ACT 112: Negative or not required by law. Electronically signed by: Omari Foreman M.D. 06/28/2024 9:28 AM Renal Ultrasound 06/28/24 14:35 Exam(s): US RENAL EXAM: US Retroperitoneal Limited, Renal CLINICAL HISTORY: Reason for exam: acute kidney injury. TECHNIQUE: Real-time limited ultrasound of the retroperitoneum with image documentation. COMPARISON: No relevant prior studies available. FINDINGS: Right kidney: Right nephrectomy. Left kidney: Left kidney measures 16.5 cm. No hydronephrosis. Lower pole simple cyst measuring 1.5 cm; no follow-up indicated. No stones. Bladder: Urinary bladder decompressed around a Edwards catheter. IMPRESSION: 1. Large but otherwise unremarkable sonographic appearance of the left kidney. 2. Right nephrectomy. Electronically signed by: Cordelia Tirado M.D. 06/28/24 20:25 PM Medications Administered Home Medications Medication Instructions Recorded Confirmed Last Taken loratadine 10 mg tablet 10 mg PO DAILY PRN .runny nose #30 12/17/23 06/25/24 Unknown tabs tamsulosin 0.4 mg capsule 0.4 mg PO HS #30 caps 12/17/23 06/25/24 06/24/24 acetaminophen 325 mg tablet 650 mg PO Q6 PRN pain 1-8 01/18/24 06/25/24 06/18/24 (Tylenol) acetaminophen 325 mg tablet 650 mg PO Q6 PRN temp>100 01/18/24 06/25/24 06/25/24 16:40 (Tylenol) allopurinol 300 mg tablet 450 mg PO QAM 01/18/24 06/25/24 06/25/24 atorvastatin 80 mg tablet 80 mg PO HS 01/18/24 06/25/24 06/24/24 calcium 600 mg (as 1 tab PO AMHS 01/18/24 06/25/24 06/25/24 carbonate)-vitamin D3 20 mcg (800 AM unit) tablet (Caltrate with Vitamin D3) cholecalciferol (vitamin D3) 25 1,000 unit PO QAM 01/18/24 06/25/24 06/25/24 mcg (1,000 unit) tablet diclofenac sodium 1 % topical gel 4 g topical QID 01/18/24 06/25/24 06/25/24 docusate sodium 100 mg capsule 100 mg PO AMHS 01/18/24 06/25/24 06/25/24 AM finasteride 5 mg tablet 5 mg PO QAM 01/18/24 06/25/24 06/25/24 furosemide 20 mg tablet 20 mg PO QAM 01/18/24 06/25/24 06/25/24 lactulose 10 gram/15 mL oral 45 ml PO TID 01/18/24 06/25/24 06/25/24 16:30 solution (Constulose) linagliptin 5 mg tablet (Tradjenta) 5 mg PO QAM 01/18/24 06/25/24 06/25/24 multivitamin 1 tab PO QAM 01/18/24 06/25/24 06/25/24 oxycodone 5 mg tablet 5 mg PO Q6 PRN SEVERE pain 9-01/18/24 06/25/24 06/25/24 07:55 pantoprazole 40 mg tablet,delayed 40 mg PO QAM 01/18/24 06/25/24 06/25/24 release phenytoin sodium extended 100 mg 600 mg PO BID 01/18/24 06/25/24 06/25/24 16:30 capsule (Dilantin Extended) potassium chloride 20 mEq 20 meq PO QAM 01/18/24 06/25/24 06/25/24 tablet,extended release(part/cryst) quetiapine 50 mg tablet (Seroquel) 50 mg PO HS 01/18/24 06/25/24 06/24/24 apixaban 5 mg tablet (Eliquis) 5 mg PO AMHS 06/11/24 06/25/24 06/25/24 AM divalproex 500 mg tablet,extended 1,000 mg PO AMHS 06/11/24 06/25/24 06/25/24 release 24 hr AM gabapentin 100 mg capsule 100 mg PO BID 06/11/24 06/25/24 06/25/24 glipizide 10 mg tablet 10 mg PO BID 06/11/24 06/25/24 06/25/24 16:30 rifaximin 550 mg tablet (Xifaxan) 550 mg PO BID #30 tabs 06/16/24 06/25/24 06/25/24 1630 divalproex 500 mg tablet,extended 500 mg PO .DAILY AT 1500 06/25/24 06/25/24 06/25/24 release 24 hr gabapentin 400 mg capsule 400 mg PO HS 06/25/24 06/25/24 06/24/24 promethazine 25 mg/mL injection 25 mg IM Q6 PRN N/V 06/25/24 06/25/24 06/23/24 solution topiramate 200 mg tablet 200 mg PO AMHS 06/25/24 06/25/24 06/25/24 AM Active Medications Generic Name Dose Route Start Last Admin Trade Name Freq PRN Reason Stop Dose Admin Acetaminophen 650 mg 06/26/24 01:42 06/29/24 10:06 Acetaminophen 325 Mg Tab PO 07/26/24 01:41 650 mg Q6 PRN Administration temp>100 Allopurinol 100 mg 06/29/24 09:00 06/29/24 12:12 Allopurinol 100 Mg Tab PO 07/29/24 08:59 100 mg QAM SUSANA Administration Atorvastatin Calcium 80 mg 06/26/24 21:00 06/28/24 21:43 Atorvastatin 40 Mg Tab PO 07/26/24 20:59 Not Given HS [facility] Calcium/Vitamin D 1 tab 06/26/24 09:00 06/29/24 10:12 Calcium 600mg + Vit D 400 Iu Tab PO 07/26/24 08:59 1 tab [facility] Administration Divalproex Sodium 1,000 mg 06/26/24 09:00 06/29/24 10:07 Divalproex Extended Release 500 Mg Tab PO 07/26/24 08:59 1,000 mg [facility] SUSANA Administration Divalproex Sodium 500 mg 06/26/24 15:00 06/28/24 10:21 Divalproex Extended Release 500 Mg Tab PO 07/26/24 14:59 Not Given DAILY@1500 [facility] Docusate Sodium 100 mg 06/26/24 09:00 06/29/24 12:13 Docusate Sodium 100 Mg Cap PO 07/26/24 08:59 100 mg AMHS SUSANA Administration Finasteride 5 mg 06/26/24 09:00 06/29/24 10:08 Finasteride 5 Mg Tab PO 07/26/24 08:59 5 mg QAM SUSANA Administration Gabapentin 400 mg 06/26/24 21:00 06/27/24 19:50 Gabapentin 400 Mg Cap PO 07/26/24 20:59 400 mg HS SUSANA Administration Gabapentin 100 mg 06/26/24 08:30 06/29/24 10:10 Gabapentin 100 Mg Cap PO 07/26/24 08:29 100 mg BID@0830,1630 SUSANA Administration Argatroban 250 mg/ Sodium 250 mls @ 0 mls/hr 06/28/24 23:45 06/29/24 07:20 Chloride IV 07/28/24 23:44 0 mcg/kg/min .Q0M SUSANA 0 mls/hr Titration Protocol 0 MCG/KG/MIN Thiamine HCl 200 mg/ Sodium 52 mls @ 210 mls/hr 06/29/24 09:00 06/29/24 12:47 Chloride IV 07/29/24 08:59 Infused QAM SUSANA Infusion Insulin Aspart 0 units 06/26/24 07:30 06/29/24 12:18 Insulin Aspart Per Unit Charge SC 07/26/24 07:29 4 units ACHS SUSANA Administration Lactulose 30 gm 06/26/24 09:00 06/29/24 10:13 Lactulose Syrup 30 Gm/45 Ml Udp PO 07/26/24 08:59 30 gm TID SUSANA Administration Multivitamins 1 tab 06/26/24 09:00 06/29/24 10:12 Multivitamin Tab PO 07/26/24 08:59 1 tab QAM SUSANA Administration Oxycodone HCl 5 mg 06/26/24 01:42 06/29/24 09:39 Oxycodone Hcl Ir 5 Mg Tab (Immediate Release) PO 07/10/24 01:41 5 mg Q6 PRN Administration SEVERE pain 9-10 Pantoprazole Sodium 40 mg 06/26/24 09:00 06/29/24 10:11 Pantoprazole 40 Mg Tab PO 07/26/24 08:59 40 mg QAM SUSANA Administration Phenytoin Sodium 600 mg 06/26/24 08:30 06/29/24 10:10 Phenytoin Sodium Er 100 Mg Cap PO 07/26/24 08:29 600 mg BID@0830,1630 SUSANA Administration Quetiapine Fumarate 50 mg 06/26/24 21:00 06/28/24 21:44 Quetiapine Fumarate 25 Mg Tablet PO 07/26/24 20:59 Not Given HS SUSANA Rifaximin 550 mg 06/26/24 08:30 06/29/24 10:10 Rifaximin 550 Mg Tablet PO 07/26/24 08:29 550 mg BID@0830,1630 SUSANA Administration Tamsulosin HCl 0.4 mg 06/26/24 21:00 06/28/24 21:44 Tamsulosin Hcl 0.4 Mg Cap PO 07/26/24 20:59 Not Given HS SUSANA Topiramate 200 mg 06/26/24 09:00 06/29/24 10:09 Topiramate 100 Mg Tab PO 07/26/24 08:59 200 mg AMHS SUSANA Administration Vitamin D 25 mcg 06/26/24 09:00 06/29/24 12:13 Cholecalciferol 25 Mcg (1000 Units) Tab PO 07/26/24 08:59 25 mcg QAM SUSANA Administration
[2024-06-29 15:39] LABS: Partial Thromboplastin Ratio 2.6; Partial Thromboplastin Time 71 Seconds (21-31)
[2024-06-29 16:30] LABS: Base Excess VBG -8.7 mEq/L; HCO3 VBG 18 mmol/L; Oxygen Saturation VBG 61.2 %; PCO2 VBG 43 mmHg (38-50); PO2 VBG 34 mmHg; pH VBG 7.24 (7.36-7.41)
[2024-06-29 16:57] LABS: BUN Creatinine Ratio 13.8 (10-20); Calcium 7.3 mg/dl (8.6-10.3); Creatinine Clr Calc Pharmacy 18.2 ml/min; Potassium 5.2 mmol/L (3.5-5.1)
[2024-06-29] MEDS: PIPERACILLIN/TAZOBACTAM 4.5 GM/100 ML BAG IV SCH (18:28)
[2024-06-29] MEDS ORDERED: 0.2 MICRON FILTER SET 1 EACH IV SCH (19:00)
[2024-06-29] MEDS: PHENYTOIN IV SCH (20:08)
[2024-06-29] MEDS: SODIUM CHLORIDE 0.9% IV SCH (20:08)
[2024-06-29] MEDS: DEXTROSE 5% IV SCH (20:41)
[2024-06-29] MEDS: VALPROATE SOD IV SCH (20:41)
[2024-06-29] MEDS: SODIUM CHLORIDE 0.9% 10ML FLUSH IV SCH (21:28)
[2024-06-29 23:15] LABS: Basophils # (auto) 0.02 K/uL (0.00-0.20); Basophils % (auto) 0.3 %; Eosinophils # (auto) 0.79 K/uL (0.00-0.50); Eosinophils % (auto) 11.7 %; Hematocrit (blood only) 22.9 % (42.0-52.0); Hemoglobin 7.6 g/dl (14.0-18.0); Immature Granulocytes # (auto) 0.02 K/uL (0.01-0.20); Immature Granulocytes % (auto) 0.3 %; Lymphocytes # (auto) 1.68 K/uL (1.20-3.40); Lymphocytes % (auto) 24.9 %; Mean Corpuscular Hemoglobin 32.1 pg (25.0-34.0); Mean Corpuscular Hgb Conc 33.2 g/dL (32.0-36.0); Mean Corpuscular Volume 96.6 fL (80.0-100.0); Mean Platelet Volume 12.1 fL (9.4-12.4); Monocytes # (auto) 0.42 K/uL (0.11-0.59); Monocytes % (auto) 6.2 %; Neutrophils # (auto) 3.82 K/uL (1.40-6.50); Neutrophils % (auto) 56.6 %; Platelet Count 33 K/uL (130-400); RDW Coefficient of Variation 15.6 % (11.5-14.5); RDW Standard Deviation 55.1 fL (36.4-46.3); Red Blood Count 2.37 M/uL (4.70-6.10); White Blood Count 6.75 K/ul (4.8-10.8)
--- NOTE | 2024-06-29 23:21 | XRay Report ---
Exam(s): XR CXR 1 VIEW EXAM: XR Chest, 1 View CLINICAL HISTORY: Reason for exam: increased oxygen requirement. TECHNIQUE: Frontal view of the chest. COMPARISON: June 25, 2024 FINDINGS: Lungs: Subtle left lower lobe infiltrate Pleural space: Unremarkable. No pneumothorax. Heart: Unremarkable. No cardiomegaly. Mediastinum: Unremarkable. Normal mediastinal contour. Bones/joints: Unremarkable. No acute fracture. IMPRESSION: Left lower lobe infiltrate Electronically signed by: Cy Garcia MD 06/29/24 23:20 PM
[2024-06-29 23:36] LABS: RBC Morphology Unremarkable
--- NOTE | 2024-06-29 23:36 | Communication Note ---
Date of Service: June 29, 2024 Code Milka called at approximally 2230. Pt admitted with acute hypoxic repository failure with presumed PE on argatroban, unclear to get CTA due to GF R. At start on evening pt was on room air. Began to destatured into the 80s, then 70s while trying to cough. Was placed on 15L high flow and suctioned without improvement in spO2. Lungs with decreased breath sounds B/L, no wheezing or crackles. Bipap was reinitiated with spO2 up to 90s. Repeat labs with Hgb= 7.6, 8.1 prior. ABG largely unchanged from previous-> remains acidotic. Creatine continues to up trend 5.37-> 5.99, K stable at 5.1, CXR without pulm edema- no indication for emergent dialysis at this time. Mild elevation in trop 115-> 114 without acute ischemic changes on EKG, likely demand ischemia. Plan to continue with BiPap, continue to trend VBG.
[2024-06-29 23:49] LABS: Albumin Level 2.7 gm/dl (3.4-5.0); BUN Creatinine Ratio 13.4 (10-20); Bilirubin,Total 1.4 mg/dl (0.2-1.0); Calcium 7.5 mg/dl (8.6-10.3); Creatinine Clr Calc Pharmacy 16.3 ml/min; Globulin 2.7 gm/dl (2.5-4.0); Potassium 5.1 mmol/L (3.5-5.1); Total Protein 5.4 gm/dl (6.0-8.3); Troponin I High Sensitivity 115.1 pg/ml (0-20)
[2024-06-30] LABS: Partial Thromboplastin Ratio 4.5
[2024-06-30] LABS: iSTAT Arterial Blood Gas HCO3 17 meg/L (19-24); iSTAT Arterial Blood Gas pCO2 42 mmHg (35-46); iSTAT Arterial Blood Gas pH 7.23 (7.35-7.45); iSTAT Arterial Blood Gas pO2 200 mmHg (80-95); iSTAT Carbon Dioxide 19 mmol/L (24-31); iSTAT Hematocrit 28 % (42-52); iSTAT Hemoglobin 9.5 g/dl (14.0-18.0); iSTAT Potassium 4.9 mmol/L (3.3-5.0); iSTAT Sample Type Arterial; iSTAT Sodium 135 mmol/L (135-144)
[2024-06-30 00:07] LABS: Partial Thromboplastin Time 122 Seconds (21-31)
[2024-06-30] MEDS: PHARMACY ARGATROBAN RATE CHANGE ONE ×3 (00:32→08:52)
[2024-06-30] MEDS: DAPTOmycin 375 MG in SYRINGE 0 ML IV SCH (00:32)
[2024-06-30 01:19] LABS: Base Excess VBG -9.4 mEq/L; HCO3 VBG 18 mmol/L; Oxygen Saturation VBG < 60.0 %; PCO2 VBG 46 mmHg (38-50); PO2 VBG 32 mmHg; pH VBG 7.21 (7.36-7.41)
[2024-06-30] MEDS: ACETAMINOPHEN 1,000 MG/100 ML VIAL IV STA ×2 (03:38→18:38)
[2024-06-30 06:50] LABS: Base Excess VBG -7.3 mEq/L; HCO3 VBG 19 mmol/L; PCO2 VBG 42 mmHg (38-50); PO2 VBG 52 mmHg; pH VBG 7.27 (7.36-7.41)
[2024-06-30 07:16] LABS: Hemoglobin 6.7 g/dl (14.0-18.0); Mean Corpuscular Hemoglobin 31.9 pg (25.0-34.0); Mean Corpuscular Hgb Conc 33.5 g/dL (32.0-36.0); Mean Corpuscular Volume 95.2 fL (80.0-100.0); Mean Platelet Volume 11.2 fL (9.4-12.4); Platelet Count 32 K/uL (130-400); RDW Coefficient of Variation 15.5 % (11.5-14.5); RDW Standard Deviation 54.1 fL (36.4-46.3); White Blood Count 5.38 K/ul (4.8-10.8)
[2024-06-30 07:22] LABS: Basophils # (auto) 0.01 K/uL (0.00-0.20); Basophils % (auto) 0.2 %; Eosinophils # (auto) 0.58 K/uL (0.00-0.50); Eosinophils % (auto) 10.8 %; Immature Granulocytes # (auto) 0.02 K/uL (0.01-0.20); Immature Granulocytes % (auto) 0.4 %; Lymphocytes # (auto) 1.51 K/uL (1.20-3.40); Lymphocytes % (auto) 28.1 %; Monocytes % (auto) 7.4 %; Neutrophils # (auto) 2.86 K/uL (1.40-6.50); Neutrophils % (auto) 53.1 %; RBC Morphology Unremarkable
[2024-06-30 07:24] LABS: BUN Creatinine Ratio 12.5 (10-20); C Reactive Protein 21.92 mg/dl (0-0.5); Calcium 7.2 mg/dl (8.6-10.3); Creatinine Clr Calc Pharmacy 14.5 ml/min; Potassium 5.4 mmol/L (3.5-5.1)
[2024-06-30 07:26] LABS: ANTI-Xa, UFH(UnfractionatedHep < 0.10 IU/ml (0.3-0.7)
[2024-06-30 07:31] LABS: Partial Thromboplastin Ratio 2.3; Partial Thromboplastin Time 63 Seconds (21-31)
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
[2024-06-30] MEDS ORDERED: PHARMACY ARGATROBAN RATE CHANGE ONE (07:45)
[2024-06-30] MEDS ORDERED: SODIUM CHLORIDE 0.9% 50 ML IV PRN ×2 (08:13→15:47)
[2024-06-30] MEDS ORDERED: SODIUM CHLORIDE 0.9% 100 ML IV PRN ×2 (08:13→15:47)
[2024-06-30] MEDS ORDERED: Nursing to Pharmacy Communication SCH (08:45)
--- NOTE | 2024-06-30 12:49 | Nephrology Progress Note ---
Date of Service June 30, 2024 Assessment & Plan (1) KEYANNA (acute kidney injury): Plan: KEYANNA attributed to ATN (hemodynamic and IV contrast). Unfortunately kidney dysfunction is advanced. Juni is critically ill. 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 They would like to proceed with dialysis. The manager scheduling it working on HD catheter placement. Complicated due to anatomy, thrombocytopenia, and argatroban. Once access is secure, hemodialysis will be initiated. Medications are appropriate for kidney function. Document I/O's. Edwards to gravity. (2) Altered mental status: Plan: Worsening encephalopathy and hypoxic respiratory failure. (3) Septic shock: (4) Anemia: Plan: No findings of TMA on smear. Etiology unclear. PRBC transfusion support has been ordered. Admission and Anticipated Discharge Date Admission Date: June 25, 2024 Subjective Eliseo is unfortunately not doing well this AM. I discussed the plan of care with Dr. Lagos and the manager scheduling. I also spoke with Lo (Eliseo's sister) by phone. Progressive respiratory distress noted. Increased O2 requirement. Urine output is dropping. No signs of bleeding noted. Review of Systems Review of Systems: Unobtainable due to cognitive status Physical Exam Constitutional: + ill appearing, + altered mental status and + frail appearing; no acute distress Eyes: + anicteric sclerae; no conjunctival abn ormality ENMT: Mouth: no oral mucosal abnormality and oral mucous membranes not dry Neck: normal visual inspection and trachea midline Respiratory: normal respiratory effort Auscultation: lungs clear to auscultation bilaterally and + rhonchi Cardiovascular: Rate/Rhythm: regular rate Heart Sounds: normal S1 and normal S2 Extremities: + edema (+1 BL LE) Musculoskeletal: Extremities: no cyanosis and no clubbing Skin: normal turgor; no jaundice Neurologic: Motor/Sensory: + tremor; no asterixis Psychiatric: Orientation: + not alert and + not oriented x 3 Results & Data Vital Signs (Past 12 Hours) Vital Signs Temp Pulse Pulse Resp BP Pulse Ox O2 Del Method 06/30/24 11:39 82 17 95 High Flow Nasal Cannula 06/30/24 11:29 36.6 C 84 20 127/56 L 96 BiPAP 06/30/24 08:09 37.1 C 76 20 90/48 L 98 BiPAP 06/30/24 08:00 76 06/30/24 07:29 76 19 97 High Flow Nasal Cannula 06/30/24 03:47 85 25 H 99 06/30/24 02:43 36.6 C 85 18 108/59 L 100 BiPAP O2 Flow Rate FiO2 06/30/24 11:39 40 30 06/30/24 11:29 06/30/24 08:09 06/30/24 08:00 06/30/24 07:29 40 40 06/30/24 03:47 40 06/30/24 02:43 Laboratory Results Laboratory Results - last 24 hr 06/28/24 06/29/24 06/29/24 16:31 08:34 14:16 WBC RBC Hgb POC Hgb Hct POC Hct MCV MCH MCHC RDW Std Deviation RDW Coeff of Pepper Plt Count MPV Immature Gran % (Auto) Neut % (Auto) Lymph % (Auto) Nelson % (Auto) Eos % (Auto) Baso % (Auto) Neut # (Auto) Lymph # (Auto) Nelson # (Auto) Eos # (Auto) Baso # (Auto) Immature Gran # (Auto) RBC Morphology APTT 71 H PTT Ratio 2.6 Heparin Anti-Xa, Unfract Specimen Type POC pH POC pCO2 POC pO2 POC HCO3 POC Total CO2 POC Base Excess POC ABG O2 Sat VBG pH VBG pCO2 VBG pO2 VBG HCO3 VBG O2 Saturation VBG Base Excess POC Sodium Sodium POC Potassium Potassium Chloride Carbon Dioxide Anion Gap BUN Creatinine Est Cr Clr Drug Dosing eGFR BUN/Creatinine Ratio Glucose POC Glucose Lactate Calcium Magnesium Total Bilirubin AST ALT Alkaline Phosphatase Total Creatine Kinase Troponin I High Sens C-Reactive Protein B-Natriuretic Peptide Total Protein Albumin Globulin Albumin/Globulin Ratio Ref Lab Test Result See Scanned Report Blood Type A Positive Antibody Screen POSITIVE A Antibody Identification Pending Antibody ID Comment Pending Direct Antiglob Test Pending CURTIS (IgG-AHG) Pending CURTIS, Polyspecific Pending CURTIS C3b, C3d 5 Min Pending Crossmatch See Detail 06/29/24 06/29/24 06/29/24 16:07 17:09 20:22 WBC RBC Hgb POC Hgb Hct POC Hct MCV MCH MCHC RDW Std Deviation RDW Coeff of Pepper Plt Count MPV Immature Gran % (Auto) Neut % (Auto) Lymph % (Auto) Nelson % (Auto) Eos % (Auto) Baso % (Auto) Neut # (Auto) Lymph # (Auto) Nelson # (Auto) Eos # (Auto) Baso # (Auto) Immature Gran # (Auto) RBC Morphology APTT PTT Ratio Heparin Anti-Xa, Unfract Specimen Type POC pH POC pCO2 POC pO2 POC HCO3 POC Total CO2 POC Base Excess POC ABG O2 Sat VBG pH 7.24 L VBG pCO2 43 VBG pO2 34 VBG HCO3 18 VBG O2 Saturation 61.2 VBG Base Excess -8.7 POC Sodium Sodium 140 POC Potassium Potassium 5.2 H Chloride 107 Carbon Dioxide 20 L Anion Gap 13 H BUN 74 H Creatinine 5.37 H* Est Cr Clr Drug Dosing 18.2 eGFR 11.11 BUN/Creatinine Ratio 13.8 Glucose 153 H POC Glucose 160 H 136 H Lactate Calcium 7.3 L Magnesium Total Bilirubin AST ALT Alkaline Phosphatase Total Creatine Kinase Troponin I High Sens C-Reactive Protein B-Natriuretic Peptide Total Protein Albumin Globulin Albumin/Globulin Ratio Ref Lab Test Result Blood Type Antibody Screen Antibody Identification Antibody ID Comment Direct Antiglob Test CURTIS (IgG-AHG) CURTIS, Polyspecific CURTIS C3b, C3d 5 Min Crossmatch 06/29/24 06/29/24 06/29/24 21:10 22:13 22:46 WBC RBC Hgb POC Hgb Hct POC Hct MCV MCH MCHC RDW Std Deviation RDW Coeff of Pepper Plt Count MPV Immature Gran % (Auto) Neut % (Auto) Lymph % (Auto) Nelson % (Auto) Eos % (Auto) Baso % (Auto) Neut # (Auto) Lymph # (Auto) Nelson # (Auto) Eos # (Auto) Baso # (Auto) Immature Gran # (Auto) RBC Morphology APTT Cancelled 122 H* PTT Ratio Cancelled 4.5 Heparin Anti-Xa, Unfract Specimen Type POC pH POC pCO2 POC pO2 POC HCO3 POC Total CO2 POC Base Excess POC ABG O2 Sat VBG pH VBG pCO2 VBG pO2 VBG HCO3 VBG O2 Saturation VBG Base Excess POC Sodium Sodium POC Potassium Potassium Chloride Carbon Dioxide Anion Gap BUN Creatinine Est Cr Clr Drug Dosing eGFR BUN/Creatinine Ratio Glucose POC Glucose 169 H Lactate Calcium Magnesium Total Bilirubin AST ALT Alkaline Phosphatase Total Creatine Kinase Troponin I High Sens C-Reactive Protein B-Natriuretic Peptide Total Protein Albumin Globulin Albumin/Globulin Ratio Ref Lab Test Result Blood Type Antibody Screen Antibody Identification Antibody ID Comment Direct Antiglob Test CURTIS (IgG-AHG) CURTIS, Polyspecific CURTIS C3b, C3d 5 Min Crossmatch 06/29/24 06/30/24 06/30/24 23:00 00:04 01:07 WBC 6.75 RBC 2.37 L Hgb 7.6 L POC Hgb 9.5 L Hct 22.9 L POC Hct 28 L MCV 96.6 MCH 32.1 MCHC 33.2 RDW Std Deviation 55.1 H RDW Coeff of Pepper 15.6 H Plt Count 33 L MPV 12.1 Immature Gran % (Auto) 0.3 Neut % (Auto) 56.6 Lymph % (Auto) 24.9 Nelson % (Auto) 6.2 Eos % (Auto) 11.7 Baso % (Auto) 0.3 Neut # (Auto) 3.82 Lymph # (Auto) 1.68 Nelson # (Auto) 0.42 Eos # (Auto) 0.79 H Baso # (Auto) 0.02 Immature Gran # (Auto) 0.02 RBC Morphology Unremarkable APTT PTT Ratio Heparin Anti-Xa, Unfract Specimen Type Arterial POC pH 7.23 L POC pCO2 42 POC pO2 200 H POC HCO3 17 L POC Total CO2 19 L POC Base Excess -10.0 L POC ABG O2 Sat 100.0 H VBG pH 7.21 L VBG pCO2 46 VBG pO2 32 VBG HCO3 18 VBG O2 Saturation < 60.0 VBG Base Excess -9.4 POC Sodium 135 Sodium 137 POC Potassium 4.9 Potassium 5.1 Chloride 104 Carbon Dioxide 20 L Anion Gap 13 H BUN 80 H Creatinine 5.99 H* D Est Cr Clr Drug Dosing 16.3 eGFR 9.75 BUN/Creatinine Ratio 13.4 Glucose 171 H POC Glucose Lactate 1.9 Calcium 7.5 L Magnesium 2.0 Total Bilirubin 1.4 H AST 47 H ALT 12 Alkaline Phosphatase 109 H Total Creatine Kinase 405 H Troponin I High Sens 115.1 H* 114.9 H* C-Reactive Protein B-Natriuretic Peptide Total Protein 5.4 L Albumin 2.7 L Globulin 2.7 Albumin/Globulin Ratio 1.0 Ref Lab Test Result Blood Type Antibody Screen Antibody Identification Antibody ID Comment Direct Antiglob Test CURTIS (IgG-AHG) CURTIS, Polyspecific CURTIS C3b, C3d 5 Min Crossmatch 06/30/24 06/30/24 06:37 12:40 WBC 5.38 RBC 2.10 L Hgb 6.7 L* POC Hgb Hct 20.0 L* POC Hct MCV 95.2 MCH 31.9 MCHC 33.5 RDW Std Deviation 54.1 H RDW Coeff of Pepper 15.5 H Plt Count 32 L MPV 11.2 Immature Gran % (Auto) 0.4 Neut % (Auto) 53.1 Lymph % (Auto) 28.1 Nelson % (Auto) 7.4 Eos % (Auto) 10.8 Baso % (Auto) 0.2 Neut # (Auto) 2.86 Lymph # (Auto) 1.51 Nelson # (Auto) 0.40 Eos # (Auto) 0.58 H Baso # (Auto) 0.01 Immature Gran # (Auto) 0.02 RBC Morphology Unremarkable APTT 63 H PTT Ratio 2.3 Heparin Anti-Xa, Unfract < 0.10 L Specimen Type POC pH POC pCO2 POC pO2 POC HCO3 POC Total CO2 POC Base Excess POC ABG O2 Sat VBG pH 7.27 L VBG pCO2 42 VBG pO2 52 VBG HCO3 19 VBG O2 Saturation 88.0 VBG Base Excess -7.3 POC Sodium Sodium 140 POC Potassium Potassium 5.4 H Chloride 108 H Carbon Dioxide 20 L Anion Gap 12 H BUN 78 H Creatinine 6.22 H* Est Cr Clr Drug Dosing 14.5 eGFR 9.32 BUN/Creatinine Ratio 12.5 Glucose 118 H POC Glucose 142 H Lactate Calcium 7.2 L Magnesium Total Bilirubin AST ALT Alkaline Phosphatase Total Creatine Kinase Troponin I High Sens C-Reactive Protein 21.92 H B-Natriuretic Peptide 682 H Total Protein Albumin Globulin Albumin/Globulin Ratio Ref Lab Test Result Blood Type Antibody Screen Antibody Identification Antibody ID Comment Direct Antiglob Test CURTIS (IgG-AHG) CURTIS, Polyspecific CURTIS C3b, C3d 5 Min Crossmatch PG Care Time/CCT Total # of Minutes Spent Total Time Spent with Patient: Total time spent is greater than 50% in coordination of care (as documented) at patient's floor/unit and/or counseling patient: Coding Level of Care Code 39523 SUB INP/OBS CARE 3/50MIN Diagnoses KEYANNA (acute kidney injury) N17.9 Altered mental status R41.82 Septic shock A41.9; R65.21 Anemia D64.9
[2024-06-30 13:41] LABS: Partial Thromboplastin Ratio 2.1; Partial Thromboplastin Time 56 Seconds (21-31)
--- NOTE | 2024-06-30 14:45 | Infectious Disease Progress Nt ---
Date of Service June 30, 2024 Assessment & Plan (1) Cutaneous abscess of back excluding buttocks: (2) Parainfluenza type 1 infection: (3) Acute confusion: Plan This is a 63-year-old man who resides at [facility] with history of intellectual disability seizure disorder, T2DM, DVT on AC, BPH, multiple recent admissions to [facility] (11/2212/18/23 after a fall c/b T8 spinal fracture and nasal bone fracture; found to have hematomas of L psoas and L quadratus muscle), 01/2024 presented to [facility] then transferred to [facility] for drainage of large L psoas abscess (reportedly with negative Cx and treated with empiric Augment), readmitted 06/1206/16/24 with draining cutaneous back wound s/p additional 2- week course of Augmentin. Pt presents again to [facility] on 06/25/24 for confusion, fever, vomiting, and redness and drainage from his L back wound. Recent medical history: - The patient was admitted to [facility] from 11/2212/18/23 for a T8 spinal fracture and nasal bone fracture after a fall; no operative management was pursued. His hospitalization was c/b pneumoniae with BAL Cx + Klebsiella pneumonia (S- ceftriaxone). During that admission, due to abdominal pain, CT A/P was performed which showed hematomas of L psoas and L quadratus muscle no intervention was pursued at that time but it was noted that patient may benefit from IR aspiration were he to develop an abscess. - The patient was then readmitted to [facility] on 01/24/24 with confusing, CT showing left lateral peritoneal collection of 7.4 X 3.1 cm; extending from left psoas muscle concerning for psoas abscess. Lumbar MRI did not show any acute bony abnormality involving the lumbar spine, no MRI evidence of epidural abscess (only visualized the retroperitoneal L psoas collection). The patient was transferred to [facility] for IR evaluation; reportedly cultures from this was negative and was treated with an empiric course of Augmentin. - The patient was admitted to [facility] from 06/1206/16/24. At that visit, he was noted to have ongoing drainage of what appeared to be an infected draining sebaceous cyst left lower back. CT scan negative for fistulous tract between the back and the psoas muscle. Notably CT A/P from 06/14 showed that the patient had a tract from his prior L flank drain with associated enhancement (focus measuring 4.9 x 3.5 cm) of stranding and fluid posterior to L kidney involving L psoas muscle; felt to be phlegmon notably without drainable fluid collection per radiology. He was treated briefly with doxycycline and pip-tazo while inpatient, and discharged on a 2-week course of Augmentin. He presents again to [facility] on 06/25/24 for confusion. The patients family was not at bedside at the time of evaluation, but reported that the patients L back wound had increased drainage and redness for the past ~3 days prior to admission. They also reported that the patient had fever and vomitinga t home. Upon presentation, VS T37.4 HR 106 BP 90/73. Labs showed WBC 9.27 Hgb 12.3 plt 123 Cr 0.84 AST 28 ALT 37 alk phos 141 tbili 0.2. Respiratory viral panel + Parainfluenza 1. CT A/P with contrast showed a moderate amount of fecal matter in the sigmoid colon and rectum with mild fluid distention of the more proximal colonic lumen; no reported psoas abscess or fistula. He was placed on daptomycin and pip-tazo. Surgery was consulted and felt that the wound is self-draining and without superficial abscess on CT; no indication for surgery at this time. 06/26 TTE was technically limited; EF 55-60%, limited valvular vegetation though without e/o vegetation, regurgitation, or stenosis. #L psoas hematoma c/b abscess s/p IR drainage at [facility] 01/2024 s/p numerous courses of Augmentin, ongoing draining wound #Parainfluenza 1 infection #Altered mental status/encephalopathy, improved #Intellectual disability #Worsening KEYANNA # thrombocytopenia, anemia On 06/26, TMax 38.4 and WBC 15.05. At time of evaluation, without family at bedside. On 06/29,Tmax 36.6, wbc 6.75 On 06/30-Sister at . some drainage from wound. Afebrile,plts 32, hgb 6.7,hct 20 cr 6.22 HIV neg 06/26, WC NG , BC 06/25 NG Discussion Pt with ongoing drainage from L back wound (and reportedly with worsened erythema around the site) recently. This is unusual given that pt has had drainage (with reportedly negative Cx) back in 01/2024, multiple courses of Augmentin, and improving CT A/P findings, however with an ongoing wound. Considered possibility of endovascular infection (BCx NGTD; TTE low quality but without vegetation), spinal infection (prior MRI L-spine 01/2024 without epidural abscess). Also considered possibility of atypical organisms (e.g., NTMs, Actino, Nocardia) that were not captured on culture. PT had signs of systemic illness on admit with fever and leukocytosis; although some of this may be attributable to viral illness as RVP + Parainfluenza 1 Recommendations: - Continue broad coverage with daptomycin 6mg IV q46 hrs and pip-tazo 4.5 g iv q12 - F/u 06/27 AFB and fungal wound Cx from fresh draining fluid NGTD . ID will continue to follow. Admission and Anticipated Discharge Date Admission Date: June 25, 2024 Subjective Subsequent visit was provided via telemedicine using two-way real-time interactive telecommunication between the patient and the telemedicine provider. For the duration of the visit, the provider was performing the assessment from a different facility than the patient. This includesuse of bluetooth stethoscope forauscultationperformed by the telepresenter that the telemedicine provider can hear if described in the physical exam. [employer] Supervisor contact information: Please call [facility] [phone]. (Phone Number For Physician Use Only) After establishing a telemedicine visit, patient was: Patient was verified with two unique identifiers Time Spent with Patient: Subsequent => 35 min Pt lying in bed in restraints/ mitts. Sister at bedside Afebrile plts 32, hgb 6.7,hct 20 cr6.22 HIV neg Physical Exam Physical Exam: General - no acute distress Lung- non labored breathing MSK- Back with draining wound EXT- BL LE edam. BL mitts in place Neuro- Awake, alert, cognitive impairment Results & Data Vital Signs (Past 12 Hours) Vital Signs Temp Pulse Pulse Resp BP Pulse Ox O2 Del Method 06/30/24 14:39 80 06/30/24 11:39 82 17 95 High Flow Nasal Cannula 06/30/24 11:29 36.6 C 84 20 127/56 L 96 BiPAP 06/30/24 08:09 37.1 C 76 20 90/48 L 98 BiPAP 06/30/24 08:00 76 06/30/24 07:29 76 19 97 High Flow Nasal Cannula 06/30/24 03:47 85 25 H 99 O2 Flow Rate FiO2 06/30/24 14:39 06/30/24 11:39 40 30 06/30/24 11:29 06/30/24 08:09 06/30/24 08:00 06/30/24 07:29 40 40 06/30/24 03:47 40
--- NOTE | 2024-06-30 15:33 | XRay Report ---
XR chest 1V portable CLINICAL HISTORY: s/p RIGHT IJ HD Cath COMPARISON STUDY: Chest radiograph June 29, 2024. FINDINGS: There is no pneumothorax following placement of a right internal jugular dialysis catheter. Tip projects over the cavoatrial junction. There are small bilateral pleural effusions with bibasila r opacities. There is mild interstitial thickening. IMPRESSION: 1. No pneumothorax following placement of a right internal jugular dialysis catheter. 2. Small bilateral pleural effusions with associated bibasilar opacities. 3. Mild interstitial pulmonary edema. ACT 112: Negative or not required by law. Electronically signed by: Omari Foreman M.D. 06/30/2024 3:32 PM
--- NOTE | 2024-06-30 15:44 | Procedure Note ---
Procedure Note Date of Service June 30, 2024 CENTRAL LINE PROCEDURE NOTE: Procedure: Temporary HD line Provider: Arya Ulrich MD Indication: Access for dialysis Anesthesia: 5 mL lidocaine 1% Site: Right IJ Consent was obtained from the family members after extensive discussion. Risks and benefits were discussed and questions were answered A time-out was completed verifying correct patient, procedure, site, positioning, and implants(s) or special equipment if applicable. Procedure was very difficult given the fact that the patient had limited mobility of his neck and was thrombocytopenic. Family understands risk of bleeding, potential damage to blood vessel requiring additional surgery, and that this is a temporary procedure and nevertheless has agreed to proceed. Patients right neck was cleansed and draped in the typical sterile fashion using Chloraprep. The Internal Jugular Vein and Carotid Artery were identified using ultrasound. The superficial tissue was anesthetized using 4 mL of 1% lidocaine without epinephrine under direct visualization with the ultrasound. After adequate anesthetization was achieved, the Internal Jugular vein was cannulated under direct ultrasound guidance using an introducer needle on a syringe. Good venous blood return was maintained prior to removal of syringe from introducer needle. Using Seldinger Technique, a guide wire was advanced through the introducer needle without resistance. The introducer needle was removed and ultrasound images were obtained of the guide wire within the Internal Jugular Vein and saved to the patients medical record. A small incision was made in penetrating fashion at the guide wire insertion site utilizing an 11 blade scalpel. Serial dilators were advanced to the vessel without resistance. The final dilator was exchanged for the flush 16 cm temporary HD catheter which was advanced into the vessel without resistance. The guide wire was removed intact from the catheter without issue. Each port flushed and camille easily. Caps were placed on the catheter. Catheter was sutured in place and a chlorhexidine impregnated Tegaderm was placed over the site. Post procedure x-ray was completed, placement was appropriate and no pneumothorax was noted. Estimated blood loss: 5 mL [facility] Procedure Codes (Charges) Tubes, Drains, and Vasc Access Procedure 1: Tubes, Drains, and Vasc Access: [id number] Insertion of cannula for hemodialysis Procedure 2: Tubes, Drains, and Vasc Access: [id number] Ultrasound Guidance For Vascular Coding CPT Codes Tubes, Drains, and Vasc Access - Tubes, Drains, and Vasc Access: [id number] Insertion of cannula for hemodialysis ([id number]) Tubes, Drains, and Vasc Access - Tubes, Drains, and Vasc Access: [id number] Ultrasound Guidance For Vascular ([id number]) Additional Codes Date of Service (PG.SURGERY)
--- NOTE | 2024-06-30 15:54 | Pharmacy Report ---
Pharmacy Anticoagulant Consult - Date of Service June 30, 2024 - Pharmacy Dosing Scope Pharmacy is consulted to initiate/evaluate argatroban IV dosing therapy, order appropriate labs and adjust drug dose/frequency. - Subjective The patient is a 63 year old M admitted on 06/25/24 23:35 for METABOLIC ENCEPHALOPATHY, CUTANEOUS ABSCESS. 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 Patient has had very complicated course w/ worsening KEYANNA and anemia today. PRBC transfusion today w/ placement of temporary HD catheter. - Assessment & Plan Regarding THERAPEUTIC Argatroban: Heme/onc consult pending. Heparin immunology labs also pending. Argatroban had been reduced last evening to 0.25 mcg/kg/min, however this resulted in supratherapeutic PTT ratio of 4.5 so argatroban was placed on hold. This morning, PTT ratio of 2.3, so argatroban was briefly restarted at ~0.13 mcg/kg/min. This was then quickly held in anticipation of HD catheter alok cement. Argatroban has remained on hold. Plan will be to restart argatroban at ~0.13 mcg/kg/min once HD cath placed. Labs: Will order PTT to be drawn 4 hours after argatroban restarted. Goal level: 1.5-2.5 Ongoing Labs (P&T Approved): We will continue to monitor this patient and make adjustments as needed. Thank you.
--- NOTE | 2024-06-30 15:55 | Pharmacy Report ---
Pharmacy Anticoagulant Consult - Date of Service June 30, 2024 - Pharmacy Dosing Scope Pharmacy is consulted to initiate/evaluate [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] [route] dosing therapy, order appropriate labs and adjust drug dose/frequency. - Subjective The patient is a 63 year old M admitted on 06/25/24 23:35 for METABOLIC ENCEPHALOPATHY, CUTANEOUS ABSCESS. Patient is to receive or is currently on day # [] of PROPHYLACTIC or THERAPEUTIC [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] [route] for [indication.] Pertinent PMH: - Assessment & Plan Regarding PROPHYLACTIC or THERAPEUTIC [Anticoagulant]: Change to/or continue [ANTICOAGULANT] [] mg [route] every [] hours based on [] or estimated creatinine clearance of [] mL/min. Labs: Will order [labs] to be drawn [] / [] / []. Goal level: [] Ongoing Labs (P&T Approved): We will continue to monitor this patient and make adjustments as needed. Thank you.
--- NOTE | 2024-06-30 18:23 | Electrocardiogram Report ---
Test Reason : Blood Pressure : */* mmHG Vent. Rate : 85 BPM Atrial Rate : 85 BPM P-R Int : 164 ms QRS Dur : 100 ms QT Int : 422 ms P-R-T Axes : 48 66 28 degrees QTcB Int : 502 ms Normal sinus rhythm Prolonged QT Abnormal ECG When compared with ECG of 25-Jun-2024 18:37, QT has lengthened Confirmed by Kristian Morrissey ([id number]) on 06/30/2024 6:22:44 PM Referred By: REFERRED SELF Confirmed By: Kristian Morrissey
[2024-06-30] MEDS: ACETAMINOPHEN 1000 MG/100 ML IV IV ONE (18:44)
--- NOTE | 2024-06-30 22:54 | Hospitalist Progress Note ---
Date of Service June 30, 2024 Assessment & Plan (1) Psoas abscess, left: Plan: Retroperitoneal/left psoas muscle hematoma complicated by abscess status postdrainage in January. Was treated with IV and p.o. antibiotics Recent admission from 06/12 to 06/16: There was some purulent discharge from the back. Was thought to be a subcutaneous cyst and was discharged on p.o. Augmentin Currently increased drainage from the same location General surgery consulted. This was abscess appears improved and is self draining. No surgical intervention warranted Was started on daptomycin and Zosyn upon admission 06/25 Infectious disease involved TTE ruled out vegetations although technically difficult study Blood cultures pending Wound cultures pending Associated with sepsis and the patient has leukocytosis and borderline hypotension, fever Considering MRI lumbar spine. Spoke to radiologist. Contrast MRI will be best however the patient has an acute kidney injury today. Will order the MRI lumbar spine with contrast once KEYANNA improved. On 06/29 Patient off BIPAP. Patient will be transferred out of the ICU. Discussed with IR and General surgery. Nothing could be aspirated on imaging. Plan is to continue antibiotics until tract closes. Positive findings regarding infection: WBC and fever curve have improved. On 06/30 Patient will require dialysis as concern over metabolic acidosis and fluid overload. D/w Nephrology. Patient having signs of acute hypoxic respiratory failure. WIll beenfit from dialysis. Patient also with acute blood loss anemia: may be multifactorial. obtained phone consent. will continue to monitor hemoglobin, will now hold argatroban, (2) Encephalopathy: Plan: Patient with notable cognitive impairment regarding disability Multifactorial in the setting of parainfluenza and left psoas abscess, sepsis History of hepatic encephalopathy. Continue lactulose. Ammonia level normal on admission Depakote level pending No seizure echo shows UA negative (3) Acute on chronic respiratory failure with hypoxemia: Plan: Patient is getting increasingly hypoxic Chest x-ray this morning was fairly unremarkable other than atelectasis PE being entertained The patient is already on heparin drip for an acute DVT Stat echo done but did not show RV strain Director Of Archives involved Patient has been transferred to ICU Patient most likely has sleep apnea as his sats drop when he falls asleep He may benefit from being on a BiPAP (4) KEYANNA (acute kidney injury): Plan: Patient has solitary left kidney Creatinine went up from 0.8- 3.85 today Oliguria Cda Teacher involved Cda Teacher ordered 120 mg of IV Lasix which she received 2 hours ago with minimal diuretic response Cda Teacher has spoken to the sister about potential dialysis in near future. On 06/29 Main issue is his poor urine output and volume status. Creatinine has been rising. Likely multifactorial from contrast and hypotension from sepsis. (5) Parainfluenza type 1 infection: Plan: Respiratory bio fire came back positive for parainfluenza 1 Isolation precautions Supportive treatment (6) DVT (deep venous thrombosis): Plan: Patient was on p.o. Eliquis [facility] was [facility]. Likely good compliance Currently has an acute on chronic left lower extremity DVT Discontinue Eliquis Switch to IV heparin drip/ now on argatroban. 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 She confirms a full CODE STATUS Admission and Anticipated Discharge Date Admission Date: June 25, 2024 Subjective Patient appears lethargic. Physical Exam Physical Exam: General: Awake, confused. Heart: S1, S2/regular rate and rhythm, no murmur rubs or gallops Lungs: Clear to auscultation bilaterally. Normal effort Abdomen: Soft/nontender/nondistended. No hepatosplenomegaly. Purulent drainage from left back cutaneous lesion Extremities: No clubbing/cyanosis. Left lower extremity edema Behavior: cooperative Purulent draiange from small opening on back. Results & Data Results & Data Vital Signs (Past 12 Hours) Vital Signs Temp Pulse Pulse Pulse Resp BP BP 06/30/24 20:07 36.8 C 96 H 18 127/71 06/30/24 20:02 94 H 20 06/30/24 19:23 36.5 C 101 H 16 06/30/24 18:27 101 H 17 06/30/24 18:00 36.8 C 111 H 122/69 06/30/24 17:45 36.8 C 110 H 18 89/56 L 06/30/24 17:30 111 H 88/44 L 06/30/24 17:28 36.8 C 79 18 101/78 06/30/24 17:13 36.7 C 77 18 132/72 06/30/24 17:00 118 H 99/54 L 06/30/24 16:56 36.8 C 78 17 106/74 06/30/24 16:30 77 90/72 L 06/30/24 16:00 95 H 126/52 L 06/30/24 15:59 75 17 06/30/24 15:54 36.8 C 84 06/30/24 15:24 36.8 C 84 20 06/30/24 14:39 80 06/30/24 11:39 82 17 06/30/24 11:29 36.6 C 84 20 BP Pulse Ox O2 Del Method O2 Flow Rate FiO2 06/30/24 20:07 99 High Flow Nasal Cannula 25 06/30/24 20:02 95 High Flow Nasal Cannula 25 30 06/30/24 19:23 113/55 L 97 High Flow Nasal Cannula 25 30 06/30/24 18:27 97 High Flow Nasal Cannula 25 30 06/30/24 18:00 06/30/24 17:45 97 40 06/30/24 17:30 06/30/24 17:28 97 40 06/30/24 17:13 97 40 06/30/24 17:00 06/30/24 16:56 97 40 06/30/24 16:30 06/30/24 16:00 06/30/24 15:59 97 High Flow Nasal Cannula 40 30 06/30/24 15:54 06/30/24 15:24 119/72 93 Room Air 06/30/24 14:39 06/30/24 11:39 95 High Flow Nasal Cannula 40 30 06/30/24 11:29 127/56 L 96 BiPAP PG Care Time/CCT Total # of Minutes Spent Total Time Spent with Patient: Total time spent is greater than 50% in coordination of care (as documented) at patient's floor/unit and/or counseling patient: Coding Level of Care Code 33980 SUB INP/OBS CARE 3/50MIN Diagnoses Psoas abscess, left K68.12 Encephalopathy G93.40 Acute on chronic respiratory failure with hypoxemia J96.21 KEYANNA (acute kidney injury) N17.9 Parainfluenza type 1 infection B34.8 DVT (deep venous thrombosis) I82.409 Hypomagnesemia E83.42 detention current use of 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 Z79.01 Sepsis A41.9 Seizure disorder G40.909 T2DM (type 2 diabetes mellitus) E11.9 Time Spent (min) 50
[2024-07-01] MEDS: ACETAMINOPHEN 1,000 MG/100 ML VIAL IV STA (05:29)
[2024-07-01 09:09] LABS: BUN Creatinine Ratio 12.1 (10-20); C Reactive Protein 19.37 mg/dl (0-0.5); Calcium 7.4 mg/dl (8.6-10.3); Creatinine Clr Calc Pharmacy 17.7 ml/min; Potassium 4.6 mmol/L (3.5-5.1)
[2024-07-01 09:36] LABS: Mean Corpuscular Hemoglobin 32.1 pg (25.0-34.0); Mean Corpuscular Hgb Conc 33.7 g/dL (32.0-36.0); Mean Corpuscular Volume 95.3 fL (80.0-100.0); Mean Platelet Volume 10.8 fL (9.4-12.4); Platelet Count 45 K/uL (130-400); RDW Coefficient of Variation 15.3 % (11.5-14.5); RDW Standard Deviation 53.7 fL (36.4-46.3); Red Blood Count 1.93 M/uL (4.70-6.10); White Blood Count 4.52 K/ul (4.8-10.8)
[2024-07-01 09:37] LABS: Basophils # (auto) 0.01 K/uL (0.00-0.20); Basophils % (auto) 0.2 %; Eosinophils # (auto) 0.28 K/uL (0.00-0.50); Eosinophils % (auto) 6.2 %; Hematocrit (blood only) 18.4 % (42.0-52.0); Hemoglobin 6.2 g/dl (14.0-18.0); Immature Granulocytes # (auto) 0.03 K/uL (0.01-0.20); Immature Granulocytes % (auto) 0.7 %; Lymphocytes % (auto) 26.5 %; Monocytes # (auto) 0.39 K/uL (0.11-0.59); Monocytes % (auto) 8.6 %; Neutrophils # (auto) 2.61 K/uL (1.40-6.50); Neutrophils % (auto) 57.8 %; RBC Morphology Unremarkable
--- NOTE | 2024-07-01 10:19 | Nephrology Progress Note ---
Date of Service July 01, 2024 Assessment & Plan (1) KEYANNA (acute kidney injury): Plan: KEYANNA attributed to ATN. No signs of kidney recovery. R IJ HD cath placed at the bedside 06/30. First HD treatment completed 06/30. Orders for HD today were entered into the EHR and reviewed with the box spring maker. Medications are appropriate for kidney function. Document I/O's. Edwards to gravity. (2) Altered mental status: Plan: Persistent encephalopathy and hypoxic respiratory failure. HD completed with restraints. Concerns were discussed with family. Prognosis is guarded. (3) Anemia: Plan: No findings of TMA on smear. Etiology unclear. PRBC transfusion support has been ordered. Awaiting acceptable blood. Hematology following. Admission and Anticipated Discharge Date Admission Date: June 25, 2024 Carrie Gomes completed 2 hours of HD yesterday with intradialytic hypotension and agitation during treatment. He remains agitated and confused this AM. Eliseo was seen and evaluated with his sister (Lo) at the bedside this AM. I discussed the patient's history and plan of care with Dr. Lagos and Dr. De Los Santos. Eliseo is afebrile. Normotensive this AM. Remains on supplemental O2 via NC. No signs of bleeding noted. Review of Systems Review of Systems: Unobtainable due to cognitive status Physical Exam Constitutional: well developed, + ill appearing and + altered mental status; no acute distress Eyes: + anicteric sclerae; no conjunctival abn ormality ENMT: Mouth: no oral mucosal abnormality and oral mucous membranes not dry Neck: normal visual inspection and trachea midline Respiratory: normal respiratory effort Auscultation: lungs clear to auscult ation bilaterally and + rhonchi Cardiovascular: Rate/Rhythm: regular rate Heart Sounds: normal S1 and normal S2 Extremities: + edema (+1 BL LE) Musculoskeletal: Extremities: no cyanosis and no clubbing Skin: normal turgor; no jaundice Neurologic: Motor/Sensory: + tremor; no asterixis Psychiatric: Orientation: + not alert and + not oriented x 3 Results & Data Vital Signs (Past 12 Hours) Vital Signs Temp Pulse Pulse Pulse Resp BP BP 07/01/24 07:58 36.7 C 84 20 117/53 L 07/01/24 07:30 86 07/01/24 04:02 85 18 07/01/24 02:40 36.4 C L 89 18 99/54 L 06/30/24 23:29 81 18 06/30/24 23:01 36.7 C 90 18 127/70 Pulse Ox O2 Del Method O2 Flow Rate FiO2 07/01/24 07:58 100 Nasal Cannula 6 07/01/24 07:30 07/01/24 04:02 95 High Flow Nasal Cannula 25 30 07/01/24 02:40 97 High Flow Nasal Cannula 25 06/30/24 23:29 91 High Flow Nasal Cannula 25 30 06/30/24 23:01 97 High Flow Nasal Cannula 25 Laboratory Results Laboratory Results - last 24 hr 06/28/24 06/28/24 06/28/24 16:31 16:31 16:31 WBC RBC Hgb Hct MCV MCH MCHC RDW Std Deviation RDW Coeff of Pepper Plt Count MPV Immature Gran % (Auto) Neut % (Auto) Lymph % (Auto) [place] % (Auto) Eos % (Auto) Baso % (Auto) Neut # (Auto) Lymph # (Auto) [place] # (Auto) Eos # (Auto) Baso # (Auto) Immature Gran # (Auto) RBC Morphology APTT PTT Ratio Heparin Anti-Xa, Unfract Sodium Potassium Chloride Carbon Dioxide Anion Gap BUN Creatinine Est Cr Clr Drug Dosing eGFR BUN/Creatinine Ratio Glucose POC Glucose Calcium C-Reactive Protein Serotonin Release Assay Procalcitonin Heparin Depend Plt Ab Ref Lab Test Result Blood Type A Positive Antibody Screen POSITIVE A Antibody Identification Pending Antibody ID Referred Antibody ID Comment Pending Elution Non productive Antigen Identification Fya Antigen - POSITIVE K Antigen - POSITIVE e Antigen - POSITIVE Direct Antiglob Test Positive A CURTIS (IgG-AHG) 2+ A CURTIS, Polyspecific 2+ A CURTIS C3b, C3d 5 Min Neg Crossmatch See Detail 06/28/24 06/29/24 06/30/24 18:26 08:34 12:40 WBC RBC Hgb Hct MCV MCH MCHC RDW Std Deviation RDW Coeff of Pepper Plt Count MPV Immature Gran % (Auto) Neut % (Auto) Lymph % (Auto) [place] % (Auto) Eos % (Auto) Baso % (Auto) Neut # (Auto) Lymph # (Auto) [place] # (Auto) Eos # (Auto) Baso # (Auto) Immature Gran # (Auto) RBC Morphology APTT PTT Ratio Heparin Anti-Xa, Unfract Sodium Potassium Chloride Carbon Dioxide Anion Gap BUN Creatinine Est Cr Clr Drug Dosing eGFR BUN/Creatinine Ratio Glucose POC Glucose 142 H Calcium C-Reactive Protein Serotonin Release Assay TNP Procalcitonin Heparin Depend Plt Ab See Scanned Report Ref Lab Test Result See Scanned Report Blood Type Antibody Screen Antibody Identification Antibody ID Referred Antibody ID Comment Elution Antigen Identification Direct Antiglob Test CURTIS (IgG-AHG) CURTIS, Polyspecific CURTIS C3b, C3d 5 Min Crossmatch 06/30/24 06/30/24 06/30/24 12:52 15:12 18:33 WBC RBC Hgb Hct MCV MCH MCHC RDW Std Deviation RDW Coeff of Pepper Plt Count MPV Immature Gran % (Auto) Neut % (Auto) Lymph % (Auto) [place] % (Auto) Eos % (Auto) Baso % (Auto) Neut # (Auto) Lymph # (Auto) [place] # (Auto) Eos # (Auto) Baso # (Auto) Immature Gran # (Auto) RBC Morphology APTT 56 H PTT Ratio 2.1 Heparin Anti-Xa, Unfract Sodium Potassium Chloride Carbon Dioxide Anion Gap BUN Creatinine Est Cr Clr Drug Dosing eGFR BUN/Creatinine Ratio Glucose POC Glucose 171 H Calcium C-Reactive Protein Serotonin Release Assay Procalcitonin Heparin Depend Plt Ab Ref Lab Test Result Blood Type A Positive Antibody Screen POSITIVE A Antibody Identification Pending Antibody ID Referred Pending Antibody ID Comment Pending Elution Antigen Identification Direct Antiglob Test CURTIS (IgG-AHG) CURTIS, Polyspecific CURTIS C3b, C3d 5 Min Crossmatch See Detail 06/30/24 07/01/24 07/01/24 20:13 08:15 08:29 WBC 4.52 L RBC 1.93 L Hgb 6.2 L* Hct 18.4 L* MCV 95.3 MCH 32.1 MCHC 33.7 RDW Std Deviation 53.7 H RDW Coeff of Pepper 15.3 H Plt Count 45 L MPV 10.8 Immature Gran % (Auto) 0.7 Neut % (Auto) 57.8 Lymph % (Auto) 26.5 [place] % (Auto) 8.6 Eos % (Auto) 6.2 Baso % (Auto) 0.2 Neut # (Auto) 2.61 Lymph # (Auto) 1.20 [place] # (Auto) 0.39 Eos # (Auto) 0.28 Baso # (Auto) 0.01 Immature Gran # (Auto) 0.03 RBC Morphology Unremarkable APTT Pending PTT Ratio Pending Heparin Anti-Xa, Unfract Pending Sodium 140 Potassium 4.6 Chloride 105 Carbon Dioxide 20 L Anion Gap 15 H BUN 62 H Creatinine 5.12 H* D Est Cr Clr Drug Dosing 17.7 eGFR 11.77 BUN/Creatinine Ratio 12.1 Glucose 140 H POC Glucose 164 H 154 H Calcium 7.4 L C-Reactive Protein 19.37 H Serotonin Release Assay Procalcitonin > 100.00 H Heparin Depend Plt Ab Ref Lab Test Result Blood Type Antibody Screen Antibody Identification Antibody ID Referred Antibody ID Comment Elution Antigen Identification Direct Antiglob Test CURTIS (IgG-AHG) CURTIS, Polyspecific CURTIS C3b, C3d 5 Min Crossmatch PG Care Time/CCT Total # of Minutes Spent Total Time Spent with Patient: Total time spent is greater than 50% in coordination of care (as documented) at patient's floor/unit and/or counseling patient: Coding Level of Care Code 16278 SUB INP/OBS CARE 3/50MIN Diagnoses KEYANNA (acute kidney injury) N17.9 Altered mental status R41.82 Anemia D64.9
[2024-07-01 12:30] LABS: ANTI-Xa, UFH(UnfractionatedHep < 0.10 IU/ml (0.3-0.7); Partial Thromboplastin Ratio 2.1; Partial Thromboplastin Time 56 Seconds (21-31)
--- NOTE | 2024-07-01 15:06 | Infectious Disease Progress Nt ---
Date of Service July 01, 2024 Assessment & Plan (1) Cutaneous abscess of back excluding buttocks: (2) Parainfluenza type 1 infection: (3) Acute confusion: Plan This is a 63-year-old man who resides at [facility] with history of intellectual disability seizure disorder, T2DM, DVT on AC, BPH, multiple recent admissions to [facility] (11/2212/18/23 after a fall c/b T8 spinal fracture and nasal bone fracture; found to have hematomas of L psoas and L quadratus muscle), 01/23 24 presented to [facility] then transferred to [facility] for drainage of large L psoas abscess (reportedly with negative Cx and treated with empiric Augment), readmitted 06/1206/16/24 with draining cutaneous back wound s/p additional 2- week course of Augmentin. Pt presents again to [facility] on 06/25/24 for confusion, fever, vomiting, and redness and drainage from his L back wound. Recent medical history: - The patient was admitted to [facility] from 11/2212/18/23 for a T8 spinal fracture and nasal bone fracture after a fall; no operative management was pursued. His hospitalization was c/b pneumoniae with BAL Cx + Klebsiella pneumonia (S- ceftriaxone). During that admission, due to abdominal pain, CT A/P was performed which showed hematomas of L psoas and L quadratus muscle no intervention was pursued at that time but it was noted that patient may benefit from IR aspiration were he to develop an abscess. - The patient was then readmitted to [facility] on 01/24/24 with confusing, CT showing left lateral peritoneal collection of 7.4 X 3.1 cm; extending from left psoas muscle concerning for psoas abscess. Lumbar MRI did not show any acute bony abnormality involving the lumbar spine, no MRI evidence of epidural abscess (only visualized the retroperitoneal L psoas collection). The patient was transferred to [facility] for IR evaluation; reportedly cultures from this was negative and was treated with an empiric course of Augmentin. - The patient was admitted to [facility] from 06/1206/16/24. At that visit, he was noted to have ongoing drainage of what appeared to be an infected draining sebaceous cyst left lower back. CT scan negative for fistulous tract between the back and the psoas muscle. Notably CT A/P from 06/14 showed that the patient had a tract from his prior L flank drain with associated enhancement (focus measuring 4.9 x 3.5 cm) of stranding and fluid posterior to L kidney involving L psoas muscle; felt to be phlegmon notably without drainable fluid collection per radiology. He was treated briefly with doxycycline and pip-tazo while inpatient, and discharged on a 2-week course of Augmentin. He presents again to [facility] on 06/25/24 for confusion. The patients family was not at bedside at the time of evaluation, but reported that the patients L back wound had increased drainage and redness for the past ~3 days prior to admission. They also reported that the patient had fever and vomitinga t home. Upon presentation, VS T37.4 HR 106 BP 90/73. Labs showed WBC 9.27 Hgb 12.3 plt 123 Cr 0.84 AST 28 ALT 37 alk phos 141 tbili 0.2. Respiratory viral panel + Parainfluenza 1. CT A/P with contrast showed a moderate amount of fecal matter in the sigmoid colon and rectum with mild fluid distention of the more proximal colonic lumen; no reported psoas abscess or fistula. He was placed on daptomycin and pip-tazo. Surgery was consulted and felt that the wound is self-draining and without superficial abscess on CT; no indication for surgery at this time. 06/26 TTE was technically limited; EF 55-60%, limited valvular vegetation though without e/o vegetation, regurgitation, or stenosis. #L psoas hematoma c/b abscess s/p IR drainage at [facility] 01/2024 s/p numerous courses of Augmentin, ongoing draining wound #Parainfluenza 1 infection #Altered mental status/encephalopathy, improved #Intellectual disability #Worsening KEYANNA # thrombocytopenia, anemia On 06/26, TMax 38.4 and WBC 15.05. At time of evaluation, without family at bedside. On 06/29,Tmax 36.6, wbc 6.75 On 06/30-Sister at BS. some drainage from wound. Afebrile,plts 32, hgb 6.7,hct 20 cr 6.22 HIV neg 06/26, WC NG , BC 06/25 NG On 07/01 remains afebrile WBc 4.52, hgb6.2, hct18.4, plts 45 cr 5.12 Discussion Pt with ongoing drainage from L back wound (and reportedly with worsened erythema around the site) recently. This is unusual given that pt has had drainage (with reportedly negative Cx) back in 01/2024, multiple courses of Augmentin, and improving CT A/P findings, however with an ongoing wound. Considered possibility of endovascular infection (BCx NGTD; TTE low quality but without vegetation), spinal infection (prior MRI L-spine 01/2024 without epidural abscess). Also considered possibility of atypical organisms (e.g., NTMs, Actino, Nocardia) that were not captured on culture. PT had signs of systemic illness on admit with fever and leukocytosis; although some of this may be attributable to viral illness as RVP + Parainfluenza 1 Recommendations: - Continue broad coverage with daptomycin 6mg IV q46 hrs and pip-tazo 4.5 g iv q12 - F/u 06/27 AFB and fungal wound Cx from fresh draining fluid NGTD - Monitor cr and cbc Anticipate 2 weeks of abx. Can consider discharge on PO abx depending on clinical improvement (e.g., doxycycline + cefpodoxime) ID will continue to follow. ID will not round or review chart on 07/02/24. Will return Saturday07/03/24 Admission and Anticipated Discharge Date Admission Date: June 25, 2024 Subjective This patient recommendation is based on a telemedicine consult request which was completed asynchronously through chart review and information provided by the primary physician. The patient was not seen or examined today. The evaluation is consultative in nature and all patient care and treatment decisions can either be accepted or rejected by the patient's primary hospital-based treating physician using their own independent medical judgment for their patient. Time Spent Reviewing Chart: 21 - 30 minutes afebrile WBc 4.52, hgb6.2, hct18.4, plts 45 cr 5.12 Results & Data Vital Signs (Past 12 Hours) Vital Signs Temp Pulse Pulse Pulse Resp BP BP 07/01/24 13:48 36.7 C 75 20 110/57 L 07/01/24 13:08 36.7 C 88 95/55 L 07/01/24 13:00 97 H 85/46 L 07/01/24 12:30 102 H 93/48 L 07/01/24 12:00 98 H 108/53 L 07/01/24 11:30 88 101/52 L 07/01/24 11:00 87 101/52 L 07/01/24 10:30 86 100/55 L 07/01/24 10:04 84 86/54 L 07/01/24 09:59 36.6 C 85 07/01/24 08:00 07/01/24 07:58 36.7 C 84 20 117/53 L 07/01/24 07:30 86 07/01/24 04:02 85 18 Pulse Ox O2 Del Method O2 Flow Rate FiO2 07/01/24 13:48 100 Nasal Cannula 6 07/01/24 13:08 07/01/24 13:00 07/01/24 12:30 07/01/24 12:00 07/01/24 11:30 07/01/24 11:00 07/01/24 10:30 07/01/24 10:04 07/01/24 09:59 07/01/24 08:00 Nasal Cannula 6 07/01/24 07:58 100 Nasal Cannula 6 07/01/24 07:30 07/01/24 04:02 95 High Flow Nasal Cannula 25 30 Laboratory Results Short CBC 07/01/24 Range/Units 08:29 WBC 4.52 L (4.8-10.8) K/ul Hgb 6.2 L* (14.0-18.0) g/dl Hct 18.4 L* (42.0-52.0) % Plt Count 45 L (130-400) K/uL BMP 07/01/24 08:29 Sodium 140 Potassium 4.6 Chloride 105 Carbon Dioxide 20 L BUN 62 H Creatinine 5.12 H* D Glucose 140 H Calcium 7.4 L Diagnostic Findings Microbiology 06/25/24 23:38 Blood Aerobic Blood Culture - Final No growth in Aerobic bottle after 5 days. 06/25/24 23:38 Blood Anaerobic Blood Culture - Final No growth in Anaerobic bottle after 5 days. 06/25/24 23:44 Blood Aerobic Blood Culture - Final No growth in Aerobic bottle after 5 days. 06/25/24 23:44 Blood Anaerobic Blood Culture - Final No growth in Anaerobic bottle after 5 days. 06/27/24 17:20 Urine,Straight Cath Urine Culture - Final No growth - less than 1,000 colonies/mL. 06/27/24 00:07 Blood Aerobic Blood Culture - Preliminary No growth in Aerobic bottle after 48 hours. 06/27/24 00:07 Blood Anaerobic Blood Culture - Preliminary No growth in Anaerobic bottle after 48 hours. 06/27/24 00:07 Blood Aerobic Blood Culture - Preliminary No growth in Aerobic bottle after 48 hours. 06/27/24 00:07 Blood Anaerobic Blood Culture - Preliminary No growth in Anaerobic bottle after 48 hours. 06/27/24 02:10 Tissue,Undefined Fungal Smear - Final 06/27/24 02:10 Tissue,Undefined Fungal Culture - Preliminary No yeast or fungus isolated - Report 1, Additional Report to Follow. 06/26/24 00:04 Back Gram Stain - Final 06/26/24 00:04 Back Wound Culture - Final Low counts mixed probable skin microbiota. No further identifications or sensitivities to follow. Renal Ultrasound 06/28/24 14:35 Exam(s): US RENAL EXAM: US Retroperitoneal Limited, Renal CLINICAL HISTORY: Reason for exam: acute kidney injury. TECHNIQUE: Real-time limited ultrasound of the retroperitoneum with image documentation. COMPARISON: No relevant prior studies available. FINDINGS: Right kidney: Right nephrectomy. Left kidney: Left kidney measures 16.5 cm. No hydronephrosis. Lower pole simple cyst measuring 1.5 cm; no follow-up indicated. No stones. Bladder: Urinary bladder decompressed around a Edwards catheter. IMPRESSION: 1. Large but otherwise unremarkable sonographic appearance of the left kidney. 2. Right nephrectomy. Electronically signed by: Cordelia Tirado M.D. 06/28/24 20:25 PM Chest X-Ray 06/29/24 22:44 Exam(s): XR CXR 1 VIEW EXAM: XR Chest, 1 View CLINICAL HISTORY: Reason for exam: increased oxygen requirement. TECHNIQUE: Frontal view of the chest. COMPARISON: June 25, 2024 FINDINGS: Lungs: Subtle left lower lobe infiltrate Pleural space: Unremarkable. No pneumothorax. Heart: Unremarkable. No cardiomegaly. Mediastinum: Unremarkable. Normal mediastinal contour. Bones/joints: Unremarkable. No acute fracture. IMPRESSION: Left lower lobe infiltrate Electronically signed by: Cy Garcia MD 06/29/24 23:20 PM Chest X-Ray 06/30/24 14:50 XR chest 1V portable CLINICAL HISTORY: s/p RIGHT IJ HD Cath COMPARISON STUDY: Chest radiograph June 29, 2024. FINDINGS: There is no pneumothorax following placement of a right internal jugular dialysis catheter. Tip projects over the cavoatrial junction. There are small bilateral pleural effusions with bibasilar opacities. There is mild interstitial thickening. IMPRESSION: 1. No pneumothorax following placement of a right internal jugular dialysis catheter. 2. Small bilateral pleural effusions with associated bibasilar opacities. 3. Mild interstitial pulmonary edema. ACT 112: Negative or not required by law. Electronically signed by: Omari Foreman M.D. 06/30/2024 3:32 PM Medications Administered Home Medications Medication Instructions Recorded Confirmed Last Taken loratadine 10 mg tablet 10 mg PO DAILY PRN .runny nose #30 12/17/23 06/25/24 Unknown tabs tamsulosin 0.4 mg capsule 0.4 mg PO HS #30 caps 12/17/23 06/25/24 06/24/24 acetaminophen 325 mg tablet 650 mg PO Q6 PRN pain 1-8 01/18/24 06/25/24 06/18/24 (Tylenol) acetaminophen 325 mg tablet 650 mg PO Q6 PRN temp>100 01/18/24 06/25/24 06/25/24 16:40 (Tylenol) allopurinol 300 mg tablet 450 mg PO QAM 01/18/24 06/25/24 06/25/24 atorvastatin 80 mg tablet 80 mg PO HS 01/18/24 06/25/24 06/24/24 calcium 600 mg (as 1 tab PO [facility] 01/18/24 06/25/24 06/25/24 carbonate)-vitamin D3 20 mcg (800 AM unit) tablet (Caltrate with Vitamin D3) cholecalciferol (vitamin D3) 25 1,000 unit PO QAM 01/18/24 06/25/24 06/25/24 mcg (1,000 unit) tablet diclofenac sodium 1 % topical gel 4 g topical QID 01/18/24 06/25/24 06/25/24 docusate sodium 100 mg capsule 100 mg PO [facility] 01/18/24 06/25/24 06/25/24 AM finasteride 5 mg tablet 5 mg PO QAM 01/18/24 06/25/24 06/25/24 furosemide 20 mg tablet 20 mg PO QAM 01/18/24 06/25/24 06/25/24 lactulose 10 gram/15 mL oral 45 ml PO TID 0606/25/24 06/25/24 16:30 solution (Constulose) linagliptin 5 mg tablet (Tradjenta) 5 mg PO QAM 01/18/24 06/25/24 06/25/24 multivitamin 1 tab PO QAM 01/18/24 06/25/24 06/25/24 oxycodone 5 mg tablet 5 mg PO Q6 PRN SEVERE pain 9-10 01/18/24 06/25/24 06/25/24 07:55 pantoprazole 40 mg tablet,delayed 40 mg PO QAM 01/18/24 06/25/24 06/25/24 release phenytoin sodium extended 100 mg 600 mg PO BID 01/18/24 06/25/24 06/25/24 16:30 capsule (Dilantin Extended) potassium chloride 20 mEq 20 meq PO QAM 01/18/24 06/25/24 06/25/24 tablet,extended release(part/cryst) quetiapine 50 mg tablet (Seroquel) 50 mg PO HS 01/18/24 06/25/24 06/24/24 apixaban 5 mg tablet (Eliquis) 5 mg PO AMHS 06/11/24 06/25/24 06/25/24 AM divalproex 500 mg tablet,extended 1,000 mg PO AMHS 06/11/24 06/25/24 06/25/24 release 24 hr AM gabapentin 100 mg capsule 100 mg PO BID 06/11/24 06/25/24 06/25/24 glipizide 10 mg tablet 10 mg PO BID 06/11/24 06/25/24 06/25/24 16:30 rifaximin 550 mg tablet (Xifaxan) 550 mg PO BID #30 tabs 06/16/24 06/25/24 06/25/24 1630 divalproex 500 mg tablet,extended 500 mg PO .DAILY AT 1500 06/25/24 06/25/24 1 08/25/23 release 24 hr gabapentin 400 mg capsule 400 mg PO HS 06/25/24 06/25/24 06/24/24 promethazine 25 mg/mL injection 25 mg IM Q6 PRN N/V 06/25/24 06/25/24 06/23/24 solution topiramate 200 mg tablet 200 mg PO AMHS 06/25/24 06/25/24 06/25/24 AM Active Medications Generic Name Dose Route Start Last Admin Trade Name Jean Marie PRN Reason Stop Dose Admin Acetaminophen 650 mg 06/26/24 01:42 06/29/24 10:06 Acetaminophen 325 Mg Tab PO 07/26/24 01:41 650 mg Q6 PRN Administration temp>100 Allopurinol 100 mg 06/29/24 09:00 07/01/24 11:08 Allopurinol 100 Mg Tab PO 07/29/24 08:59 Not Given QAM SUSANA Atorvastatin Calcium 80 mg 06/26/24 21:00 06/30/24 20:35 Atorvastatin 40 Mg Tab PO 07/26/24 20:59 Not Given HS SUSANA Calcium/Vitamin D 1 tab 06/26/24 09:00 07/01/24 11:08 Calcium 600mg + Vit D 400 Iu Tab PO 07/26/24 08:59 Not Given AMHS SUSANA Divalproex Sodium 1,000 mg 06/26/24 09:00 06/29/24 10:07 Divalproex Extended Release 500 Mg Tab PO 07/26/24 08:59 1,000 mg AMHS SUSANA Administration Divalproex Sodium 500 mg 06/26/24 15:00 06/29/24 15:25 Divalproex Extended Release 500 Mg Tab PO 07/26/24 14:59 500 mg DAILY@1500 SUSANA Administration Docusate Sodium 100 mg 06/26/24 09:00 07/01/24 11:08 Docusate Sodium 100 Mg Cap PO 07/26/24 08:59 Not Given AMHS SUSANA Finasteride 5 mg 06/26/24 09:00 07/01/24 11:09 Finasteride 5 Mg Tab PO 07/26/24 08:59 Not Given QAM SUSANA Gabapentin 400 mg 06/26/24 21:00 06/27/24 19:50 Gabapentin 400 Mg Cap PO 07/26/24 20:59 400 mg HS SUSANA Administration Gabapentin 100 mg 06/26/24 08:30 07/01/24 11:08 Gabapentin 100 Mg Cap PO 07/26/24 08:29 Not Given BID@0830,1630 SUSANA Daptomycin 375 mg/ Syringe 7.5 mls @ 3.75 mls/min 06/29/24 23:30 06/30/24 00:32 IV 07/02/24 23:29 3.75 mls/min Q48H SUSANA Administration Protocol Thiamine HCl 200 mg/ Sodium 52 mls @ 210 mls/hr 06/29/24 09:00 07/01/24 14:48 Chloride IV 07/29/24 08:59 Infused QAM SUSANA Infusion Piperacillin Sod/Tazobactam Sod 4.5 gm in 100 mls @ 25 mls/hr 06/29/24 18:00 07/01/24 11:09 Zosyn IV 07/03/24 05:59 Infused Q12H SUSANA Infusion Protocol Valproic Acid 600 mg/ Dextrose 56 mls @ 55 mls/hr 06/29/24 19:00 07/01/24 13:58 IV 07/29/24 18:59 55 mls/hr Q6H SUSANA Administration Phenytoin 400 mg/ Sodium 58 mls @ 116 mls/hr 06/29/24 19:00 07/01/24 14:48 Chloride IV 07/29/24 18:59 Infused Q8H SUSANA Infusion Insulin Aspart 0 units 06/26/24 07:30 07/01/24 13:51 Insulin Aspart Per Unit Charge SC 07/26/24 07:29 Not Given ACHS SUSANA Lactulose 30 gm 06/26/24 09:00 07/01/24 13:58 Lactulose Syrup 30 Gm/45 Ml Udp PO 07/26/24 08:59 Not Given TID SUSANA Multivitamins 1 tab 06/26/24 09:00 07/01/24 11:09 Multivitamin Tab PO 07/26/24 08:59 Not Given QAM [facility] Oxycodone HCl 5 mg 06/26/24 01:42 06/29/24 09:39 Oxycodone Hcl Ir 5 Mg Tab (Immediate Release) PO 07/10/24 01:41 5 mg Q6 PRN Administration SEVERE pain 9-10 Pantoprazole Sodium 40 mg 06/26/24 09:00 07/01/24 11:09 Pantoprazole 40 Mg Tab PO 07/26/24 08:59 Not Given QAM [facility] Phenytoin Sodium 600 mg 06/26/24 08:30 06/29/24 17:28 Phenytoin Sodium Er 100 Mg Cap PO 07/26/24 08:29 Not Given BID@0830,1630 [facility] Quetiapine Fumarate 50 mg 06/26/24 21:00 06/30/24 20:35 Quetiapine Fumarate 25 Mg Tablet PO 07/26/24 20:59 Not Given HS SUSANA Rifaximin 550 mg 06/26/24 08:30 07/01/24 11:08 Rifaximin 550 Mg Tablet PO 07/26/24 08:29 Not Given BID@0830,1630 SUSANA Sodium Chloride 20 ml 06/29/24 19:00 07/01/24 13:51 Sodium Chloride 0.9% 10ml Flush IV 07/29/24 18:59 20 ml Q8H SUSANA Administration Tamsulosin HCl 0.4 mg 06/26/24 21:00 06/30/24 20:35 Tamsulosin Hcl 0.4 Mg Cap PO 07/26/24 20:59 Not Given HS SUSANA Topiramate 200 mg 06/26/24 09:00 07/01/24 11:09 Topiramate 100 Mg Tab PO 07/26/24 08:59 Not Given AMHS [facility] Vitamin D 25 mcg 06/26/24 09:00 07/01/24 11:08 Cholecalciferol 25 Mcg (1000 Units) Tab PO 07/26/24 08:59 Not Given QAM SUSANA
--- NOTE | 2024-07-01 18:14 | Hematology/Oncology Prog Note ---
Date of Service July 01, 2024 Assessment & Plan (1) Thrombocytopenia: Plan: Platelet count is now recovering from a sammi. Latest platelet count is 45,000. However we will keep him off anticoagulation as his hemoglobin has been low and there are concerns for bleeding. HIT antibody panel showed 0.174, low optical density unlikely that we are dealing with heparin-induced thrombocytopenia. In my opinion the thrombocytopenia is related to sepsis and p olypharmacy which is now recovering from a sammi. With this low optical density for HIT antibody we do not need to wait for serotonin release assay. However, given the significant thrombocytopenia and concerns for bleeding we will hold anticoagulation for now. would want his H&H to be stable before reinitiating anticoagulation. The other threshold to reinitiate anticoagulation would be if the platelet count is greater than50,000/mcL. Would monitor H&H closely. He has not received packed red blood cells as of now. Would want to maintain his hemoglobin level greater than 7 g/dL. Discussed this case with my nephrology colleague, Dr. Lu, unlikely that we are dealing with TTP/HUS given the absence of schistocytes on the peripheral smear Plan hematology will continue to follow the patient, make appropriate recommendations. Rest of the care per our infectious disease, nephrology colleagues Admission and Anticipated Discharge Date Admission Date: June 25, 2024 Subjective Continues to be critically ill, is on dialysis. Continues to be lethargic intermittently confused Review of Systems Review of Systems: All systems reviewed & are unremarkable except as noted in HPI & below Physical Exam Constitutional: + acute distress, + ill appearing and + intoxicated appearing Eyes: PERRL, conjunctivae normal, anicteric sclerae ENMT: external ear and nose normal, oropharynx normal Neck: trachea midline, no thyromegaly Respiratory: normal respiratory effort, lungs clear to auscultation Cardiovascular: RRR, no murmur, no edema Gastrointestinal (Abdomen): normal bowel sounds, soft, nontender, no hepatosplenomegaly Results & Data Vital Signs (Past 12 Hours) Vital Signs Temp Pulse Pulse Pulse Resp BP BP 07/01/24 16:20 36.9 C 96 H 18 108/59 L 07/01/24 16:00 91 H 07/01/24 13:48 36.7 C 75 20 110/57 L 07/01/24 13:08 36.7 C 88 95/55 L 07/01/24 13:00 97 H 85/46 L 07/01/24 12:30 102 H 93/48 L 07/01/24 12:00 98 H 108/53 L 07/01/24 11:30 88 101/52 L 07/01/24 11:00 87 101/52 L 07/01/24 10:30 86 100/55 L 07/01/24 10:04 84 86/54 L 07/01/24 09:59 36.6 C 85 07/01/24 08:00 07/01/24 07:58 36.7 C 84 20 117/53 L 07/01/24 07:30 86 Pulse Ox O2 Del Method O2 Flow Rate 07/01/24 16:20 100 High Flow Nasal Cannula 6 07/01/24 16:00 07/01/24 13:48 100 Nasal Cannula 6 07/01/24 13:08 07/01/24 13:00 07/01/24 12:30 07/01/24 12:00 07/01/24 11:30 07/01/24 11:00 07/01/24 10:30 07/01/24 10:04 07/01/24 09:59 07/01/24 08:00 Nasal Cannula 6 07/01/24 07:58 100 Nasal Cannula 6 07/01/24 07:30
[2024-07-01] MEDS: ACETAMINOPHEN 1,000 MG/100 ML VIAL IV PRN (20:05)
--- NOTE | 2024-07-01 20:07 | Hospitalist Progress Note ---
Date of Service July 01, 2024 Assessment & Plan (1) Psoas abscess, left: Plan: Retroperitoneal/left psoas muscle hematoma complicated by abscess status postdrainage in January. Was treated with IV and p.o. antibiotics Recent admission from 06/12 to 06/16: There was some purulent discharge from the back. Was thought to be a subcutaneous cyst and was discharged on p.o. Augmentin Currently increased drainage from the same location General surgery consulted. This was abscess appears improved and is self draining. No surgical intervention warranted Was started on daptomycin and Zosyn upon admission 06/25 Infectious disease involved TTE ruled out vegetations although technically difficult study Blood cultures pending Wound cultures pending Associated with sepsis and the patient has leukocytosis and borderline hypotension, fever Considering MRI lumbar spine. Spoke to radiologist. Contrast MRI will be best however the patient has an acute kidney injury today. Will order the MRI lumbar spine with contrast once KEYANNA improved. On 06/29 Patient off BIPAP. Patient will be transferred out of the ICU. Discussed with IR and General surgery. Nothing could be aspirated on imaging. Plan is to continue antibiotics until tract closes. Positive findings regarding infection: WBC and fever curve have improved. On 06/30 Patient will require dialysis as concern over metabolic acidosis and fluid overload. D/w Nephrology. Patient having signs of acute hypoxic respiratory failure. WIll beenfit from dialysis. On 07/01 obtained dialysis. transfusing PRBC. will monitor. Patient also with acute blood loss anemia: may be multifactorial. obtained phone consent. will continue to monitor hemoglobin, will now hold argatroban, (2) Encephalopathy: Plan: Patient with notable cognitive impairment regarding disability Multifactorial in the setting of parainfluenza and left psoas abscess, sepsis History of hepatic encephalopathy. Continue lactulose. Ammonia level normal on admission Depakote level pending No seizure echo shows UA negative (3) Acute on chronic respiratory failure with hypoxemia: Plan: Patient is getting increasingly hypoxic Chest x-ray this morning was fairly unremarkable other than atelectasis PE being entertained The patient is already on heparin drip for an acute DVT Stat echo done but did not show RV strain Journeyman Plumber involved Patient has been transferred to ICU Patient most likely has sleep apnea as his sats drop when he falls asleep He may benefit from being on a BiPAP (4) KEYANNA (acute kidney injury): Plan: Patient has solitary left kidney Creatinine went up from 0.8- 3.85 today Oliguria Data Operations Leader involved Data Operations Leader ordered 120 mg of IV Lasix which she received 2 hours ago with minimal diuretic response Data Operations Leader has spoken to the sister about potential dialysis in near future. On 06/29 Main issue is his poor urine output and volume status. Creatinine has been rising. Likely multifactorial from contrast and hypotension from sepsis. (5) Parainfluenza type 1 infection: Plan: Respiratory bio fire came back positive for parainfluenza 1 Isolation precautions Supportive treatment (6) DVT (deep venous thrombosis): Plan: Patient was on p.o. Eliquis [facility]. Likely good compliance Currently has an acute on chronic left lower extremity DVT Discontinue Eliquis Switch to IV heparin drip/ now on argatroban. 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 She confirms a full CODE STATUS Admission and Anticipated Discharge Date Admission Date: June 25, 2024 Subjective Patient is lethargic. Review of Systems Review of Systems: All systems reviewed & are unremarkable except as noted in HPI & below Physical Exam Physical Exam: General: Awake, confused. Heart: S1, S2/regular rate and rhythm, no murmur rubs or gallops Lungs: Clear to auscultation bilaterally. Normal effort Abdomen: Soft/nontender/nondistended. No hepatosplenomegaly. Purulent drainage from left back cutaneous lesion Extremities: No clubbing/cyanosis. Left lower extremity edema Behavior: cooperative Purulent draiange from small opening on back. Results & Data Results & Data Vital Signs (Past 12 Hours) Vital Signs Temp Pulse Pulse Pulse Resp BP BP 07/01/24 18:43 07/01/24 16:20 36.9 C 96 H 18 108/59 L 07/01/24 16:00 91 H 07/01/24 13:48 36.7 C 75 20 110/57 L 07/01/24 13:08 36.7 C 88 95/55 L 07/01/24 13:00 97 H 85/46 L 07/01/24 12:30 102 H 93/48 L 07/01/24 12:00 98 H 108/53 L 07/01/24 11:30 88 101/52 L 07/01/24 11:00 87 101/52 L 07/01/24 10:30 86 100/55 L 07/01/24 10:04 84 86/54 L 07/01/24 09:59 36.6 C 85 Pulse Ox O2 Del Method O2 Flow Rate 07/01/24 18:43 100 Nasal Cannula 4 07/01/24 16:20 100 High Flow Nasal Cannula 6 07/01/24 16:00 07/01/24 13:48 100 Nasal Cannula 6 07/01/24 13:08 07/01/24 13:00 07/01/24 12:30 07/01/24 12:00 07/01/24 11:30 07/01/24 11:00 07/01/24 10:30 07/01/24 10:04 07/01/24 09:59 PG Care Time/CCT Total # of Minutes Spent Total Time Spent with Patient: Total time spent is greater than 50% in coordination of care (as documented) at patient's floor/unit and/or counseling patient: Coding Level of Care Code 12985 SUB INP/OBS CARE 2/35MIN Diagnoses Psoas abscess, left K68.12 Encephalopathy G93.40 Acute on chronic respiratory failure with hypoxemia J96.21 KEYANNA (acute kidney injury) N17.9 Parainfluenza type 1 infection B34.8 DVT (deep venous thrombosis) I82.409 Hypomagnesemia E83.42 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
[2024-07-02 06:55] LABS: Hematocrit (blood only) 18.9 % (42.0-52.0); Hemoglobin 6.3 g/dl (14.0-18.0); Mean Corpuscular Hemoglobin 31.5 pg (25.0-34.0); Mean Corpuscular Hgb Conc 33.3 g/dL (32.0-36.0); Mean Corpuscular Volume 94.5 fL (80.0-100.0); Mean Platelet Volume 10.9 fL (9.4-12.4); Platelet Count 45 K/uL (130-400); RDW Coefficient of Variation 14.8 % (11.5-14.5); RDW Standard Deviation 51.3 fL (36.4-46.3); White Blood Count 4.79 K/ul (4.8-10.8)
[2024-07-02 07:18] LABS: BUN Creatinine Ratio 10.9 (10-20); Calcium 7.4 mg/dl (8.6-10.3); Creatinine Clr Calc Pharmacy 25.9 ml/min; Potassium 3.8 mmol/L (3.5-5.1)
[2024-07-02 07:20] LABS: ANTI-Xa, UFH(UnfractionatedHep < 0.10 IU/ml (0.3-0.7)
[2024-07-02] MEDS: INSULIN ASPART PER UNIT CHARGE SC SCH (12:40)
--- NOTE | 2024-07-02 13:59 | Nephrology Progress Note ---
Date of Service July 02, 2024 Assessment & Plan (1) KEYANNA (acute kidney injury): Plan: KEYANNA attributed to ATN. No signs of kidney recovery. R IJ HD cath placed at the bedside 06/30. First HD treatment completed 06/30. Completed treatment yesterday with adequate UF and clearance. Next treatment likely tomorrow. Unfortunately, Eliseo does not seem to tolerate HD well. His confusion is unfortunately not improving and he remains severely encephalopathic. Medications are appropriate for kidney function. Document I/O's. Edwards to gravity. (2) Altered mental status: Plan: Persistent encephalopathy and hypoxic respiratory failure. HD completed with restraints yesterday. Concerns have been discussed with family. Prognosis is guarded. (3) Anemia: Plan: No findings of TMA on smear. Etiology unclear. PRBC support. Hematology following. Admission and Anticipated Discharge Date Admission Date: June 25, 2024 Subjective Eliseo remains severely encephalopathic and unable to participate in meaningful conversation. HD completed yesterday. No complications with treatment but Eliseo is agitated during dialysis and continues to pull at catheter. Review of Systems Review of Systems: All systems reviewed & are unremarkable except as noted in HPI & below Physical Exam Constitutional: well developed, + altered mental status and + frail appearing Eyes: + anicteric sclerae; no conjunctival abn ormality ENMT: Mouth: no oral mucosal abnormality and oral mucous membranes not dry Neck: normal visual inspection and trachea midline Respiratory: normal respiratory effort Auscultation: lungs clear to auscultation bilaterally and + rhonchi Cardiovascular: Rate/Rhythm: regular rate Heart Sounds: normal S1 and normal S2 Extremities: + edema (+1 BL LE) Musculoskeletal: Extremities: no cyanosis and no clubbing Skin: normal turgor; no jaundice Neurologic: Motor/Sensory: no tremor and no asterixis Psychiatric: Orientation: alert; + not oriented x 3 Results & Data Vital Signs (Past 12 Hours) Vital Signs Temp Pulse Pulse Pulse Resp BP BP 07/02/24 13:41 07/02/24 12:42 90 22 07/02/24 12:41 07/02/24 11:07 36.8 C 82 18 07/02/24 10:10 85 20 07/02/24 10:08 07/02/24 07:22 36.5 C 84 20 07/02/24 07:22 07/02/24 07:22 36.5 C 84 20 117/63 07/02/24 06:46 36.7 C 83 16 111/55 L 07/02/24 05:46 36.5 C 86 18 122/71 07/02/24 05:43 86 07/02/24 05:16 36.4 C L 96 H 18 120/68 07/02/24 05:01 36.6 C 93 H 20 99/59 L 07/02/24 04:42 36.5 C 95 H 20 116/51 L 07/02/24 02:32 36.8 C 92 H 18 133/60 BP Pulse Ox O2 Del Method O2 Flow Rate 07/02/24 13:41 Room Air 07/02/24 12:42 92 Room Air 0 07/02/24 12:41 99 Room Air, Nasal Cannula 2 07/02/24 11:07 133/80 100 Nasal Cannula 2 07/02/24 10:10 98 Nasal Cannula 2 07/02/24 10:08 100 Room Air 4 07/02/24 07:22 117/63 100 Nasal Cannula 4 07/02/24 07:22 Nasal Cannula 4 07/02/24 07:22 100 4 07/02/24 06:46 98 4 07/02/24 05:46 100 4 07/02/24 05:43 07/02/24 05:16 100 4 07/02/24 05:01 100 4 07/02/24 04:42 93 4 07/02/24 02:32 98 Nasal Cannula 4 Laboratory Results Laboratory Results - last 24 hr 06/28/24 06/28/24 06/28/24 16:31 16:31 16:31 WBC RBC Hgb Hct MCV MCH MCHC RDW Std Deviation RDW Coeff of Pepper Plt Count MPV Heparin Anti-Xa, Unfract Sodium Potassium Chloride Carbon Dioxide Anion Gap BUN Creatinine Est Cr Clr Drug Dosing eGFR BUN/Creatinine Ratio Glucose POC Glucose Calcium Hep B Core IgM Ab Blood Type Antibody Screen Antibody Identification Unknown Antibody Antibody ID Comment Cancelled Antigen Identification Fya Antigen - POSITIVE K Antigen - NEGATIVE e Antigen - POSITIVE Crossmatch See Detail 06/29/24 06/30/24 07/01/24 11:01 15:12 16:56 WBC RBC Hgb Hct MCV MCH MCHC RDW Std Deviation RDW Coeff of Pepper Plt Count MPV Heparin Anti-Xa, Unfract Sodium Potassium Chloride Carbon Dioxide Anion Gap BUN Creatinine Est Cr Clr Drug Dosing eGFR BUN/Creatinine Ratio Glucose POC Glucose 144 H Calcium Hep B Core IgM Ab NON-REACTIVE Blood Type A Positive Antibody Screen POSITIVE A Antibody Identification Unknown Antibody Antibody ID Comment Cancelled Antigen Identification Crossmatch See Detail 07/01/24 07/02/24 07/02/24 20:27 06:02 08:25 WBC 4.79 L RBC 2.00 L Hgb 6.3 L* Hct 18.9 L* MCV 94.5 MCH 31.5 MCHC 33.3 RDW Std Deviation 51.3 H RDW Coeff of Pepper 14.8 H Plt Count 45 L MPV 10.9 Heparin Anti-Xa, Unfract < 0.10 L Sodium 139 Potassium 3.8 Chloride 104 Carbon Dioxide 20 L Anion Gap 15 H BUN 38 H D Creatinine 3.49 H D Est Cr Clr Drug Dosing 25.9 eGFR 18.64 BUN/Creatinine Ratio 10.9 Glucose 141 H POC Glucose 153 H 141 H Calcium 7.4 L Hep B Core IgM Ab Blood Type Antibody Screen Antibody Identification Antibody ID Comment Antigen Identification Crossmatch 07/02/24 07/02/24 08:57 12:14 WBC RBC Hgb 7.1 L Hct MCV MCH MCHC RDW Std Deviation RDW Coeff of Pepper Plt Count MPV Heparin Anti-Xa, Unfract Sodium Potassium Chloride Carbon Dioxide Anion Gap BUN Creatinine Est Cr Clr Drug Dosing eGFR BUN/Creatinine Ratio Glucose POC Glucose 165 H Calcium Hep B Core IgM Ab Blood Type Antibody Screen Antibody Identification Antibody ID Comment Antigen Identification Crossmatch PG Care Time/CCT Total # of Minutes Spent Total Time Spent with Patient: Total time spent is greater than 50% in coordination of care (as documented) at patient's floor/unit and/or counseling patient: Coding Level of Care Code 25573 SUB INP/OBS CARE 3/50MIN Diagnoses KEYANNA (acute kidney injury) N17.9 Altered mental status R41.82 Anemia D64.9
--- NOTE | 2024-07-02 16:26 | Hospitalist Progress Note ---
Date of Service July 02, 2024 Assessment & Plan (1) Psoas abscess, left: Plan: Retroperitoneal/left psoas muscle hematoma complicated by abscess status postdrainage in January. Was treated with IV and p.o. antibiotics Recent admission from 06/12 to 06/16: There was some purulent discharge from the back. Was thought to be a subcutaneous cyst and was discharged on p.o. Augmentin Currently increased drainage from the same location General surgery consulted. This was abscess appears improved and is self draining. No surgical intervention warranted Was started on daptomycin and Zosyn upon admission 06/25 Infectious disease involved TTE ruled out vegetations although technically difficult study Blood cultures pending Wound cultures pending Associated with sepsis and the patient has leukocytosis and borderline hypotension, fever Considering MRI lumbar spine, however due to improved fever curve, and WBC will hold, as well as worsening KEYANNA. Patient off BIPAP, transferred out of the ICU. Discussed with IR and General surgery: Nothing could be aspirated on imaging. Plan is to continue antibiotics until tract closes with secondary intention Positive findings regarding infection: WBC and fever curve have improved. On 06/30, Patient required dialysis as concern over metabolic acidosis and fluid overload. Repeated on 07/01, and required PRBC. Concern over HIT, but this was ruled out. Holding anticoagulation for Pulmonary emboli due to anemia and thrombocytopenia. (2) Encephalopathy: Plan: Patient with notable cognitive impairment regarding disability Multifactorial in the setting of parainfluenza and left psoas abscess, sepsis History of hepatic encephalopathy. Continue lactulose. Ammonia level normal on admission Depakote level pending No seizure echo shows UA negative (3) Acute on chronic respiratory failure with hypoxemia: Plan: Patient is getting increasingly hypoxic Chest x-ray this morning was fairly unremarkable other than atelectasis PE being entertained The patient is already on heparin drip for an acute DVT Stat echo done but did not show RV strain Mine Promotor involved Patient has been transferred to ICU Patient most likely has sleep apnea as his sats drop when he falls asleep He may benefit from being on a BiPAP (4) KEYANNA (acute kidney injury): Plan: Patient has solitary left kidney Creatinine went up from 0.8- 3.85 today Oliguria Manufacturing Engineering Manager involved Manufacturing Engineering Manager ordered 120 mg of IV Lasix which she received 2 hours ago with minimal diuretic response Manufacturing Engineering Manager has spoken to the sister about potential dialysis in near future. Noew on dialysis (5) Parainfluenza type 1 infection: Plan: Respiratory bio fire came back positive for parainfluenza 1 Isolation precautions Supportive treatment (6) DVT (deep venous thrombosis): Plan: Patient was on p.o. Eliquis [facility]. Likely good compliance Currently has an acute on chronic left lower extremity DVT Discontinue Eliquis Switch to IV heparin drip/ now on argatroban. 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 On restraints. Physical Exam Physical Exam: General: Awake, confused. Heart: S1, S2/regular rate and rhythm, no murmur rubs or gallops Lungs: Clear to auscultation bilaterally. Normal effort Abdomen: Soft/nontender/nondistended. No hepatosplenomegaly. Purulent drainage from left back cutaneous lesion Extremities: No clubbing/cyanosis. Left lower extremity edema Behavior: cooperative Purulent draiange from small opening on back. Results & Data Results & Data Vital Signs (Past 12 Hours) Vital Signs Temp Pulse Pulse Pulse Resp BP BP 07/02/24 15:04 36.8 C 93 H 18 124/68 07/02/24 13:41 07/02/24 13:01 88 07/02/24 12:42 90 22 07/02/24 12:41 07/02/24 11:07 36.8 C 82 18 133/80 07/02/24 10:10 85 20 07/02/24 10:08 07/02/24 07:22 36.5 C 84 20 117/63 07/02/24 07:22 07/02/24 07:22 36.5 C 84 20 117/63 07/02/24 06:46 36.7 C 83 16 111/55 L 07/02/24 05:46 36.5 C 86 18 122/71 07/02/24 05:43 86 07/02/24 05:16 36.4 C L 96 H 18 120/68 07/02/24 05:01 36.6 C 93 H 20 99/59 L 07/02/24 04:42 36.5 C 95 H 20 116/51 L Pulse Ox O2 Del Method O2 Flow Rate 07/02/24 15:04 96 Room Air 07/02/24 13:41 Room Air 07/02/24 13:01 07/02/24 12:42 92 Room Air 0 07/02/24 12:41 99 Room Air, Nasal Cannula 2 07/02/24 11:07 100 Nasal Cannula 2 07/02/24 10:10 98 Nasal Cannula 2 07/02/24 10:08 100 Room Air 4 07/02/24 07:22 100 Nasal Cannula 4 07/02/24 07:22 Nasal Cannula 4 07/02/24 07:22 100 4 07/02/24 06:46 98 4 07/02/24 05:46 100 4 07/02/24 05:43 07/02/24 05:16 100 4 07/02/24 05:01 100 4 07/02/24 04:42 93 4 PG Care Time/CCT Total # of Minutes Spent Total Time Spent with Patient: Total time spent is greater than 50% in coordination of care (as documented) at patient's floor/unit and/or counseling patient: Coding Level of Care Code 50434 SUB INP/OBS CARE 3/50MIN Diagnoses Psoas abscess, left K68.12 Encephalopathy G93.40 Acute on chronic respiratory failure with hypoxemia J96.21 KEYANNA (acute kidney injury) N17.9 Parainfluenza type 1 infection B34.8 DVT (deep venous thrombosis) I82.409 Hypomagnesemia E83.42 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
[2024-07-03 06:33] LABS: Babesia microti DNA Not Detected (Not Detected)
[2024-07-03 06:59] LABS: Hemoglobin 6.4 g/dl (14.0-18.0); Mean Corpuscular Hemoglobin 31.1 pg (25.0-34.0); Mean Corpuscular Hgb Conc 33.7 g/dL (32.0-36.0); Mean Corpuscular Volume 92.2 fL (80.0-100.0); Nucleated RBC # (auto) 0.02 K/uL (0.00-0.12); Nucleated RBC % (auto) 0.4 %; Platelet Count 47 K/uL (130-400); RDW Coefficient of Variation 14.4 % (11.5-14.5); RDW Standard Deviation 48.3 fL (36.4-46.3); Red Blood Count 2.06 M/uL (4.70-6.10); White Blood Count 5.11 K/ul (4.8-10.8)
[2024-07-03 07:11] LABS: Anisocytosis Present; Basophils # (auto) 0.02 K/uL (0.00-0.20); Basophils % (auto) 0.4 %; Eosinophils # (auto) 0.15 K/uL (0.00-0.50); Eosinophils % (auto) 2.9 %; Immature Granulocytes # (auto) 0.09 K/uL (0.01-0.20); Immature Granulocytes % (auto) 1.8 %; Lymphocytes # (auto) 1.09 K/uL (1.20-3.40); Lymphocytes % (auto) 21.3 %; Monocytes # (auto) 0.48 K/uL (0.11-0.59); Monocytes % (auto) 9.4 %; Neutrophils # (auto) 3.28 K/uL (1.40-6.50); Neutrophils % (auto) 64.2 %
[2024-07-03 07:14] LABS: Albumin Level 2.4 gm/dl (3.4-5.0); BUN Creatinine Ratio 10.2 (10-20); Calcium 7.7 mg/dl (8.6-10.3); Creatinine Clr Calc Pharmacy 20.1 ml/min; Phosphorus 3.2 mg/dl (2.5-4.9); Potassium 3.7 mmol/L (3.5-5.1)
[2024-07-03 07:17] LABS: ANTI-Xa, UFH(UnfractionatedHep < 0.10 IU/ml (0.3-0.7)
--- NOTE | 2024-07-03 07:58 | Hospitalist Progress Note ---
Date of Service July 03, 2024 Assessment & Plan (1) Goals of care, counseling/discussion: Plan: Did have extensive conversation over approximately 35-45 minutes with patient's Sister Molly, other face sister Karen, algotif-dr-snp Manan, and other brother in law Ed regarding Eliseo's progression, goals of care, and workup. They report that prior to this hospitalization Eliseo was relatively well, would follow commands, and goal with current hospitalization is for him to return to his prior state of usual health which included general independence and normal conversational ability Discussed multiple challenges that he has had including infection, continued bl eeding, kidney injury with progression to dialysis, and now complicated by DVT with anticoagulation limited by ongoing bleeding. They report that when he had been given paperwork in the past to clarify his wishes and medical desires that he had given it to his sister because he was scared that he would not fill it out correctly and his goal is "to live ". Had not considered the quality of life versus length of life trade off of aggressive interventions at that time however would like to hear the potential risks of benefits of all options including a potential IVC filter told minimize the risk of clot migration to cause of PE. They understand that progression to a PE would likely be a catastrophic event with Eliseo's level of illness and current frailty. No like to see how he does today and this weekend, would consider a palliative care consultation perhaps on Saturday but for now would like to see how he does with current treatment and hear about the potential risk/benefits of a filter from the vascular team. Reviewed renal progression. KEYANNA suspected ATN but with no evidence of renal recovery. Patient is extremely confused/agitated very disproportionate with his baseline. BUN is elevated although not substantially so. Ammonia was not significantly elevated. Hemoglobin is low again today. Could consider an MRI to evaluate for nonmetabolic causes of his mental status change however lower yield for this given that he does not show other focal neurologic deficits at time of assessment. While conditions such as PSP are not ruled out, currently he would require sedation to undergo an MRI and risks outweigh the benefits well patient is treated for his ESRD, infection, and anemia. (2) Psoas abscess, left: Plan: History of left psoas and retroperitoneal hematoma complicated by abscess s/p drainage 01/2024 Admitted 05/12 - 06/16 for purulent discharge from the back was treated with Augmentin. Images have drainage from this location. Surgery/IR reviewed, no areas amenable to surgical or IR drainage Zosyn/daptomycin continued. Atorvastatin held while on daptomycin TTE ruled out vegetations although technically difficult study 06/27/2024 blood cultures: No growth at 5 days 06/27/2024 wound/back of surface cultures with no growth to date UCx 06/27/2024 no growth last less than 1000 CFU's Associated with sepsis and the patient has leukocytosis and borderline hypotension, fever Patient was considered for both MRIbrain due to persistent encephalopathy and MRI lumbar spine however would need to be sedated for this and risks currently outweigh the benefits -Continue antibiotics, allow tract to close by secondary intention Anticoagulation held due to anemia, thrombocytopenia. HIT previously suspected, this was ruled out earlier in admission but remains with downtrending hemoglobin requiring transfusion 06/30, 07/01: Required dialysis for metabolic acidosis and fluid overload 07/01 & 07/03 +1 unit of PRBC for anemia 07/03: Repeat CTIs without abscess, fistula, expanding hematoma, retroperitoneal bleed. Degree of anemia and transfusion is inconsistent with the amount of output from his wound, and she has no evidence of GI bleeding. Will order a reticulocyte count for [employer] wound cultures reordered - Continue Abx through 07/09 minimum. Per ID targeting doxy/cefpodoixime as transition choice, currently PO is limited by ability to swallow. Pip-tazo switched to Rocephin due to due to thrombocytopenia (3) Encephalopathy: Plan: Multifactorial. Differential includes metabolic cephalopathy with parainfluenza and psoas infection, hepatic encephalopathy although ammonia level normal, no evidence of seizure, and encephalopathy of critical illness. Patient is on dialysis BUN is elevated but not critically so MRI limited by mental status risks outweigh benefits of sedated MRI given frailty at this time UA negative (4) Acute on chronic respiratory failure with hypoxemia: Plan: With history of hypoxia, 07/03 is saturating 98% on room air Patient was on heparin GTT for DVT of the left lower extremity, findings favoring acute on chronic DVT. Heparin gtt. subsequently held due to progressive anemia and recurrent need for transfusion Some underlying element of WILDER, PPV at bedtime Patient is at high risk of PE. Fortunately is not hypoxic, although has been intermittently transiently tachycardic Discussed potential for catastrophic PE given acute on chronic DVT and his medical frailty, goals of care as above. Pending evaluation for filter (5) KEYANNA (acute kidney injury): Plan: Solitary left kidney Creatinine continues to rise, 3.49 to 4.49 on 07/03/2020 Chest x-ray with small effusions and pulmonary edema consistent with mild volume overload Previously 120 mg of IV Lasix with minimal diuretic response Has required dialysis x 2. Creatinine continues to rise 07/03, potassium 3.7. Patient wet sounding but without critical volume overload. Anticipate dialysis today with 1 unit PRBC to be given during dialysis (6) Parainfluenza type 1 infection: Plan: Respiratory bio fire came back positive for parainfluenza 1 Isolation precautions Supportive treatment (7) DVT (deep venous thrombosis): Plan: -Patient was on p.o. Eliquis -[facility] was at [facility]. Likely good compliance at that time -Currently has an acute on chronic left lower extremity DVT -Eliquis discontinued, was switched to heparin gtt. however concern for HIT and was transiently on argatroban. 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 Does not follow commands, does not give verbal answers to questions. Appears uncomfortable. Remains in soft restraints due to attempts to remove medical equipment. Did have extensive conversation over approximately 35 minutes with patient's Sister Molly, other face sister Karen, iorzyyp-cl-wik Manan, and other brother in law add regarding his progression, goals of care, and workup. They report that prior to this hospitalization Eliseo was relatively well, would follow commands, and goal with current hospitalization is for him to return to his prior state of usual health. Discussed multiple challenges that he has had including infection, continued bleeding, kidney injury with progression to dialysis, and now complicated by DVT with anticoagulation limited by ongoing bleeding. They report that when he had been given paperwork in the past to clarify his wishes and medical desires that he had given it to his sister because he was scared that he would not fill it out correctly and his goal is "to live ". Had not considered the quality of life versus length of life trade off of aggressive interventions at that time however would like to hear the potential risks of benefits of all options including a potential IVC filter told minimize the risk of clot migration to cause of PE. They understand that progression to a PE would likely be a catastrophic event with Eliseo's level of illness and current frailty. No like to see how he does today and this weekend, would consider a palliative care consultation perhaps on Saturday but for now would like to see how he does with current treatment and hear about the potential risk/benefits of a filter from the vascular team. Reviewed renal progression. KEYANNA suspected ATN but with no evidence of renal recovery. Patient is extremely confused/agitated very disproportionate with his baseline. BUN is elevated although not substantially so. Ammonia was not significantly elevated. Hemoglobin is low again today. Could consider an MRI to evaluate for nonmetabolic causes of his mental status change however lower yield for this given that he does not show other focal neurologic deficits at time of assessment. While conditions such as PSP are not ruled out, currently he would require sedation to undergo an MRI and risks outweigh the benefits well patient is treated for his ESRD, infection, and anemia. Physical Exam Physical Exam: General: Ill frail appearing, does not follow commands or answers questions HEENT: Atraumatic, normocephalic. Vision and hearing grossly intact Pulm: diminished, bibasilar crackles. Coarse rhonchi and coarse upper airway sounds. Cardiac: Regular, tachycardic Extremities: Bilateral lower extremity is present Scant drainage from left buttock Results & Data Results & Data Vital Signs (Past 12 Hours) Vital Signs Temp Pulse Pulse Resp BP Pulse Ox O2 Del Method 07/03/24 05:54 89 07/03/24 04:03 36.5 C 91 H 20 122/60 98 Room Air 07/03/24 00:08 36.5 C 91 H 20 143/82 H 94 Room Air 07/02/24 21:52 86 07/02/24 20:30 36.5 C 84 20 145/78 H 98 Room Air 07/02/24 20:00 Room Air PG Care Time/CCT Total # of Minutes Spent Total Time Spent with Patient: Total time spent is greater than 50% in coordination of care (as documented) at patient's floor/unit and/or counseling patient: Coding Level of Care Code 18353 SUB INP/OBS CARE 3/50MIN Diagnoses Goals of care, counseling/discussion Z71.89 Psoas abscess, left K68.12 Encephalopathy G93.40 Acute on chronic respiratory failure with hypoxemia J96.21 KEYANNA (acute kidney injury) N17.9 Parainfluenza type 1 infection B34.8 DVT (deep venous thrombosis) I82.409 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
[2024-07-03] MEDS ORDERED: SODIUM CHLORIDE 0.9% 100 ML IV PRN (08:05)
[2024-07-03] MEDS ORDERED: SODIUM CHLORIDE 0.9% 50 ML IV PRN (08:05)
[2024-07-03] MEDS: PIPERACILLIN/TAZOBACTAM 4.5 GM/100 ML BAG IV SCH (09:14)
[2024-07-03 09:22] LABS: Base Excess VBG -2.8 mEq/L; HCO3 VBG 23 mmol/L; Oxygen Saturation VBG < 60.0 %; PCO2 VBG 42 mmHg (38-50); PO2 VBG 31 mmHg; pH VBG 7.34 (7.36-7.41)
--- NOTE | 2024-07-03 12:10 | Nephrology Progress Note ---
Date of Service July 03, 2024 Assessment & Plan (1) KEYANNA (acute kidney injury): Plan: KEYANNA attributed to ATN. No signs of kidney recovery. R IJ HD cath placed at the bedside 06/30. First HD treatment completed 06/30. No signs of renal recovery. Orders for HD today were entered into the EHR and reviewed with the fountain helper. HD catheter is functioning well. Unfortunately, Eliseo does not tolerate HD. Encephalopathy is unfortunately not improving and he remains confused and agitated. He is frequently pulling at lines when not in restraints. Medications are appropriate for kidney function. Document I/O's. Edwards to gravity. (2) Altered mental status: Plan: Persistent encephalopathy. HD completed with restraints. Concerns have been discussed with family. (3) Anemia: Plan: No findings of TMA on smear. Etiology unclear. PRBC support provided with HD today. Hematology following. Ultimately will require follow up imaging. Admission and Anticipated Discharge Date Admission Date: June 25, 2024 Subjective No acute events overnight. Eliseo was seen and evaluated during HD this AM. Dialysis is only able to be completed with patient in restraints. He remains disoriented. He is not speaking. Eliseo is intermittently moaning and agitated. BP is acceptable. Qb at goal. Review of Systems Review of Systems: Unobtainable due to cognitive status Physical Exam Constitutional: + altered mental status and + frail appe aring Eyes: + anicteric sclerae; no conjunctival abn ormality ENMT: Mouth: no oral mucosal abnormality and oral mucous membranes not dry Neck: normal visual inspection and trachea midline Respiratory: normal respiratory effort Auscultation: lungs clear to auscultation bilaterally and + rhonchi Cardiovascular: Rate/Rhythm: regular rate Heart Sounds: normal S1 and normal S2 Extremities: + edema (+1 BL LE) Musculoskeletal: Extremities: no cyanosis and no clubbing Skin: normal turgor; no jaundice Neurologic: Motor/Sensory: no tremor and no asterixis Psychiatric: Orientation: + not oriented x 3 Results & Data Vital Signs (Past 12 Hours) Vital Signs Temp Pulse Pulse Pulse Resp BP BP 07/03/24 11:07 36.6 C 80 22 134/56 L 07/03/24 11:00 85 120/73 07/03/24 10:52 36.6 C 80 22 125/56 L 07/03/24 10:37 36.5 C 95 H 20 114/49 L 07/03/24 10:30 73 117/65 07/03/24 10:18 36.6 C 90 20 118/67 07/03/24 10:00 86 105/69 07/03/24 09:46 79 139/61 07/03/24 09:41 36.5 C 58 L 07/03/24 07:56 36.2 C L 90 22 136/74 07/03/24 07:38 07/03/24 05:54 89 07/03/24 04:03 36.5 C 91 H 20 122/60 07/03/24 00:08 36.5 C 91 H 20 143/82 H Pulse Ox O2 Del Method O2 Flow Rate 07/03/24 11:07 97 0 07/03/24 11:00 07/03/24 10:52 97 0 07/03/24 10:37 97 0 07/03/24 10:30 07/03/24 10:18 97 0 07/03/24 10:00 07/03/24 09:46 07/03/24 09:41 07/03/24 07:56 97 Room Air 07/03/24 07:38 Room Air 07/03/24 05:54 07/03/24 04:03 98 Room Air 07/03/24 00:08 94 Room Air Laboratory Results Laboratory Results - last 24 hr 06/28/24 06/30/24 07/02/24 18:26 15:12 12:14 WBC RBC Hgb Hct MCV MCH MCHC RDW Std Deviation RDW Coeff of Pepper Plt Count MPV Immature Gran % (Auto) Neut % (Auto) Lymph % (Auto) [place] % (Auto) Eos % (Auto) Baso % (Auto) Neut # (Auto) Lymph # (Auto) [place] # (Auto) Eos # (Auto) Baso # (Auto) Immature Gran # (Auto) Absolute Nucleated RBC Nucleated RBC % (auto) Anisocytosis Heparin Anti-Xa, Unfract VBG pH VBG pCO2 VBG pO2 VBG HCO3 VBG O2 Saturation VBG Base Excess Sodium Potassium Chloride Carbon Dioxide Anion Gap BUN Creatinine Est Cr Clr Drug Dosing eGFR BUN/Creatinine Ratio Glucose POC Glucose 165 H Calcium Phosphorus Albumin A. phagocytophilum DNA Negative Babesia microti DNA PCR Not Detected Blood Type A Positive Antibody Screen POSITIVE A Antibody Identification Unknown Antibody Antibody ID Referred Antibody ID Comment Cancelled Crossmatch See Detail 07/02/24 07/03/24 07/03/24 17:19 00:04 06:11 WBC RBC Hgb Hct MCV MCH MCHC RDW Std Deviation RDW Coeff of Pepper Plt Count MPV Immature Gran % (Auto) Neut % (Auto) Lymph % (Auto) [place] % (Auto) Eos % (Auto) Baso % (Auto) Neut # (Auto) Lymph # (Auto) [place] # (Auto) Eos # (Auto) Baso # (Auto) Immature Gran # (Auto) Absolute Nucleated RBC Nucleated RBC % (auto) Anisocytosis Heparin Anti-Xa, Unfract VBG pH VBG pCO2 VBG pO2 VBG HCO3 VBG O2 Saturation VBG Base Excess Sodium Potassium Chloride Carbon Dioxide Anion Gap BUN Creatinine Est Cr Clr Drug Dosing eGFR BUN/Creatinine Ratio Glucose POC Glucose 163 H 149 H 184 H Calcium Phosphorus Albumin A. phagocytophilum DNA Babesia microti DNA PCR Blood Type Antibody Screen Antibody Identification Antibody ID Referred Antibody ID Comment Crossmatch 07/03/24 07/03/24 06:17 08:56 WBC 5.11 RBC 2.06 L Hgb 6.4 L* Hct 19.0 L* MCV 92.2 MCH 31.1 MCHC 33.7 RDW Std Deviation 48.3 H RDW Coeff of Pepper 14.4 Plt Count 47 L MPV 10.0 Immature Gran % (Auto) 1.8 Neut % (Auto) 64.2 Lymph % (Auto) 21.3 [place] % (Auto) 9.4 Eos % (Auto) 2.9 Baso % (Auto) 0.4 Neut # (Auto) 3.28 Lymph # (Auto) 1.09 L [place] # (Auto) 0.48 Eos # (Auto) 0.15 Baso # (Auto) 0.02 Immature Gran # (Auto) 0.09 Absolute Nucleated RBC 0.02 Nucleated RBC % (auto) 0.4 Anisocytosis Present Heparin Anti-Xa, Unfract < 0.10 L VBG pH 7.34 L VBG pCO2 42 VBG pO2 31 VBG HCO3 23 VBG O2 Saturation < 60.0 VBG Base Excess -2.8 Sodium 143 Potassium 3.7 Chloride 107 Carbon Dioxide 21 Anion Gap 15 H BUN 46 H Creatinine 4.49 H D Est Cr Clr Drug Dosing 20.1 eGFR 13.78 BUN/Creatinine Ratio 10.2 Glucose 175 H POC Glucose Calcium 7.7 L Phosphorus 3.2 Albumin 2.4 L A. phagocytophilum DNA Babesia microti DNA PCR Blood Type Antibody Screen Antibody Identification Antibody ID Referred Antibody ID Comment Crossmatch PG Care Time/CCT Total # of Minutes Spent Total Time Spent with Patient: Total time spent is greater than 50% in coordination of care (as documented) at patient's floor/unit and/or counseling patient: Coding Level of Care Code 38255 SUB INP/OBS CARE 3/50MIN Diagnoses KEYANNA (acute kidney injury) N17.9 Altered mental status R41.82 Anemia D64.9
[2024-07-03] MEDS ORDERED: PIPERACILLIN/TAZOBACTAM 4.5 GM/100 ML BAG IV SCH (13:00)
--- NOTE | 2024-07-03 13:23 | CT Scan Report ---
CT OF THE ABDOMEN AND PELVIS WITHOUT CONTRAST CLINICAL HISTORY: ?recurrent L psoas/retroperitoneal hematoma COMPARISON STUDY: CT of the abdomen and pelvis June 25, 2024. Renal ultrasound June 28, 2024 . TECHNIQUE: Axial images of the abdomen and pelvis were obtained without IV contrast. Images were revi ewed in the axial, sagittal, and coronal planes. Automated exposure control was utilized for the kathy dy. A dose lowering technique was utilized adhering to the principles of ALARA. FINDINGS: Visualized portions of the lower chest demonstrate small bilateral pleural effusions. Bilat eral lower lobe airspace opacities, right greater than left, have increased since CT of June 25, 2024. Radiodensities within the right lower lobe are present. There are extensive secretions within t he lower lobe bronchi, right greater than left. No pneumatosis, free air or portal venous gas is pres ent. There is no left hydronephrosis. There is no abnormality within the right nephrectomy bed. A lef t flank percutaneous drain tract is noted. Mild stranding along the left psoas and iliacus muscles re keiry unchanged. No fluid collection is identified on unenhanced exam. There is no retroperitoneal he matoma. There is evidence for volume overload with presacral and body wall edema. The gallbladder is mildly distended. There is no pericholecystic infiltration. Splenomegaly is unchanged. Unenhanced kai ges of the adrenal glands and pancreas are normal. There is no evidence for a bowel obstruction. Ther e is no evidence for acute appendicitis. A Edwards balloon and gas within the bladder present. There is trace ascites. IMPRESSION: 1. No retroperitoneal hematoma. 2. No change in appearance of a left flank drain tract with stranding adjacent to the left psoas, nadir acus and iliopsoas muscles. This may reflect phlegmon or fat necrosis. No fluid collection to suggest abscess. 3. Increase in bilateral lower lobe airspace opacities, right greater than left. Given extensive secr etions within the bronchi, the findings may reflect aspiration pneumonitis. Atelectasis could appear similar. 4. Evidence for volume overload with body wall and presacral edema. Trace ascites. 5. Nondistended gallbladder. No pericholecystic infiltration. ACT 112: Negative or not required by law. Electronically signed by: Omari Foreman M.D. 07/03/2024 1:21 PM
--- NOTE | 2024-07-03 14:46 | Infectious Disease Progress Nt ---
Date of Service July 03, 2024 Assessment & Plan (1) Cutaneous abscess of back excluding buttocks: (2) Parainfluenza type 1 infection: (3) Acute confusion: Plan This is a 63-year-old man who resides at [facility] with history of intellectual disability seizure disorder, T2DM, DVT on AC, BPH, multiple recent admissions to [facility] (11/2212/18/23 after a fall c/b T8 spinal fracture and nasal bone fracture; found to have hematomas of L psoas and L quadratus muscle), 01/23 24 presented to [facility] then transferred to [facility] for drainage of large L psoas abscess (reportedly with negative Cx and treated with empiric Augment), readmitted 06/1206/16/24 with draining cutaneous back wound s/p additional 2- week course of Augmentin. Pt presents again to [facility] on 06/25/24 for confusion, fever, vomiting, and redness and drainage from his L back wound. Recent medical history: - The patient was admitted to [facility] from 11/2212/18/23 for a T8 spinal fracture and nasal bone fracture after a fall; no operative management was pursued. His hospitalization was c/b pneumoniae with BAL Cx + Klebsiella pneumonia (S- ceftriaxone). During that admission, due to abdominal pain, CT A/P was performed which showed hematomas of L psoas and L quadratus muscle no intervention was pursued at that time but it was noted that patient may benefit from IR aspiration were he to develop an abscess. - The patient was then readmitted to [facility] on 01/24/24 with confusing, CT showing left lateral peritoneal collection of 7.4 X 3.1 cm; extending from left psoas muscle concerning for psoas abscess. Lumbar MRI did not show any acute bony abnormality involving the lumbar spine, no MRI evidence of epidural abscess (only visualized the retroperitoneal L psoas collection). The patient was transferred to [facility] for IR evaluation; reportedly cultures from this was negative and was treated with an empiric course of Augmentin. - The patient was admitted to [facility] from 06/1206/16/24. At that visit, he was noted to have ongoing drainage of what appeared to be an infected draining sebaceous cyst left lower back. CT scan negative for fistulous tract between the back and the psoas muscle. Notably CT A/P from 06/14 showed that the patient had a tract from his prior L flank drain with associated enhancement (focus measuring 4.9 x 3.5 cm) of stranding and fluid posterior to L kidney involving L psoas muscle; felt to be phlegmon notably without drainable fluid collection per radiology. He was treated briefly with doxycycline and pip-tazo while inpatient, and discharged on a 2-week course of Augmentin. He presents again to [facility] on 06/25/24 for confusion. The patients family not intially at bedside at the time of evaluation, but reported that the patients L back wound had increased drainage and redness for the past ~3 days prior to admission. They also reported that the patient had fever and vomiting at home. Upon presentation, VS T37.4 HR 106 BP 90/73. Labs showed WBC 9.27 Hgb 12.3 plt 123 Cr 0.84 AST 28 ALT 37 alk phos 141 tbili 0.2. Respiratory viral panel + Parainfluenza 1. CT A/P with contrast showed a moderate amount of fecal matter in the sigmoid colon and rectum with mild fluid distention of the more proximal colonic lumen; no reported psoas abscess or fistula. He was placed on daptomycin and pip-tazo. Surgery was consulted and felt that the wound is self-draining and without superficial abscess on CT; no indication for surgery at this time. 06/26 TTE was technically limited; EF 55-60%, limited valvular vegetation though without e/o vegetation, regurgitation, or stenosis. #L psoas hematoma c/b abscess s/p IR drainage at [facility] 01/2024 s/p numerous courses of Augmentin, ongoing draining wound #Parainfluenza 1 infection #Altered mental status/encephalopathy, improved #Intellectual disability #Worsening KEYANNA # thrombocytopenia, anemia #Possible Aspiration Pneumonitis On 06/26, TMax 38.4 and WBC 15.05. At time of evaluation, without family at bedside. On 06/29,Tmax 36.6, wbc 6.75 On 06/30-Sister at BS. some drainage from wound. Afebrile,plts 32, hgb 6.7,hct 20 cr 6.22 HIV neg 06/26, WC NG , BC 06/25 On 07/01 remains afebrile WBc 4.52, hgb6.2, hct18.4, plts 45 cr 5.12 . HD cath in place HD yesterday. Photo of back wound reviewed. On 07/02 CTAP from 07/02 reviewed - shows no retroperitoneal hematoma. No change in appearance of a left flank drain tract with stranding adjacent to the left psoas, iliacus and iliopsoas muscles. This may reflect phlegmon or fat necrosis. No fluid collection to suggest abscess."There is Increase in bilateral lower lobe airspace opacities, right greater than left. Given extensive secretions within the bronchi, the findings may reflect aspiration pneumonitis. Atelectasis could appear similar" - no signs or renal recovery and plan for another HD session today . Discussion Pt with ongoing drainage from L back wound (and reportedly with worsened erythema around the site) recently. This is unusual given that pt has had drainage (with reportedly negative Cx) back in 01/2024, multiple courses of Augmentin, and improving CT A/P findings, however with an ongoing wound. Considered possibility of endovascular infection (BCx NGTD; TTE low quality but without vegetation), spinal infection (prior MRI L-spine 01/2024 without epidural abscess). Also considered possibility of atypical organisms (e.g., NTMs, Actino, Nocardia) that were not captured on culture. PT had signs of systemic illness on admit with fever and leukocytosis; although some of this may be attributable to viral illness as RVP + Parainfluenza 1 She has been on broad renally dosed abx : daptomycin 6mg IV q46 hrs and pip-tazo 4.5 g iv q12 Fungal wound cx NGTD . Anaerobic, aerobic cultures with NG/ Looks like AFB wound cx was cancelled. Recommendations: Repeat CTAP without abscess, or fistula. Bacterial Cultures with NG. Fungal cultures with NGTD Please repeat AFB cultures from draining wound ( appears prior culture canceled) If no longer draining, do not swab back. Anticipate 2 weeks of abx( 06/25-07/09). This is day 9 of pip-tazo and daptomycin. Will switch to pip tazo to Ceftriaxone . Unclear if thrombocytopenia 2/2 pip tazo. Will monitor cbc with change in antibiotics ID will continue to follow. ID will not round or review chart over the weekend. Call [phone] with questions Sharmin Vinson MD, MPH Infectious Disease ID Connect [facility], ID Division Admission and Anticipated Discharge Date Admission Date: June 25, 2024 Subjective This patient recommendation is based on a telemedicine consult request which was completed asynchronously through chart review and information provided by the primary physician. The patient was not seen or examined today. The evaluation is consultative in nature and all patient care and treatment decisions can either be accepted or rejected by the patient's primary hospital-based treating physician using their own independent medical judgment for their patient. Time Spent Reviewing Chart: 21 - 30 minutes cr 4.49, plts 47, wbc 5.1 Results & Data Vital Signs (Past 12 Hours) Vital Signs Temp Pulse Pulse Pulse Resp BP BP 07/03/24 13:35 36.5 C 94 H 22 133/74 07/03/24 13:22 102 H 07/03/24 12:47 36.5 C 90 132/60 07/03/24 12:30 96 H 136/69 07/03/24 12:00 94 H 109/69 07/03/24 11:30 94 H 111/64 07/03/24 11:07 36.6 C 80 22 134/56 L 07/03/24 11:00 85 120/73 07/03/24 10:52 36.6 C 80 22 125/56 L 07/03/24 10:37 36.5 C 95 H 20 114/49 L 07/03/24 10:30 73 117/65 07/03/24 10:18 36.6 C 90 20 118/67 07/03/24 10:00 86 105/69 07/03/24 09:46 79 139/61 07/03/24 09:41 36.5 C 58 L 07/03/24 07:56 36.2 C L 90 22 136/74 07/03/24 07:38 07/03/24 05:54 89 07/03/24 04:03 36.5 C 91 H 20 122/60 Pulse Ox O2 Del Method O2 Flow Rate 07/03/24 13:35 97 Room Air 07/03/24 13:22 07/03/24 12:47 07/03/24 12:30 07/03/24 12:00 07/03/24 11:30 07/03/24 11:07 97 0 07/03/24 11:00 07/03/24 10:52 97 0 07/03/24 10:37 97 0 07/03/24 10:30 07/03/24 10:18 97 0 07/03/24 10:00 07/03/24 09:46 07/03/24 09:41 07/03/24 07:56 97 Room Air 07/03/24 07:38 Room Air 07/03/24 05:54 07/03/24 04:03 98 Room Air Laboratory Results Short CBC 07/03/24 07/03/24 Range/Units 06:17 14:15 WBC 5.11 (4.8-10.8) K/ul Hgb 6.4 L* 7.8 L (14.0-18.0) g/dl Hct 19.0 L* (42.0-52.0) % Plt Count 47 L (130-400) K/uL BMP 07/03/24 06:17 Sodium 143 Potassium 3.7 Chloride 107 Carbon Dioxide 21 BUN 46 H Creatinine 4.49 H D Glucose 175 H Calcium 7.7 L Liver Function 07/03/24 Range/Units 06:17 Albumin 2.4 L (3.4-5.0) gm/dl Diagnostic Findings Microbiology 06/27/24 00:07 Blood Aerobic Blood Culture - Final No growth in Aerobic bottle after 5 days. 06/27/24 00:07 Blood Anaerobic Blood Culture - Final No growth in Anaerobic bottle after 5 days. 06/27/24 00:07 Blood Aerobic Blood Culture - Final No growth in Aerobic bottle after 5 days. 06/27/24 00:07 Blood Anaerobic Blood Culture - Final No growth in Anaerobic bottle after 5 days. 06/25/24 23:38 Blood Aerobic Blood Culture - Final No growth in Aerobic bottle after 5 days. 06/25/24 23:38 Blood Anaerobic Blood Culture - Final No growth in Anaerobic bottle after 5 days. 06/25/24 23:44 Blood Aerobic Blood Culture - Final No growth in Aerobic bottle after 5 days. 06/25/24 23:44 Blood Anaerobic Blood Culture - Final No growth in Anaerobic bottle after 5 days. 06/27/24 17:20 Urine,Straight Cath Urine Culture - Final No growth - less than 1,000 colonies/mL. 06/27/24 02:10 Tissue,Undefined Fungal Smear - Final 06/27/24 02:10 Tissue,Undefined Fungal Culture - Preliminary No yeast or fungus isolated - Report 1, Additional Report to Follow. 06/26/24 00:04 Back Gram Stain - Final 06/26/24 00:04 Back Wound Culture - Final Low counts mixed probable skin microbiota. No further identifications or sensitivities to follow. Chest X-Ray 06/30/24 14:50 XR chest 1V portable CLINICAL HISTORY: s/p RIGHT IJ HD Cath COMPARISON STUDY: Chest radiograph June 29, 2024. FINDINGS: There is no pneumothorax following placement of a right internal jugular dialysis catheter. Tip projects over the cavoatrial junction. There are small bilateral pleural effusions with bibasilar opacities. There is mild in terstitial thickening. IMPRESSION: 1. No pneumothorax following placement of a right internal jugular dialysis catheter. 2. Small bilateral pleural effusions with associated bibasilar opacities. 3. Mild interstitial pulmonary edema. ACT 112: Negative or not required by law. Electronically signed by: Omari Foreman M.D. 06/30/2024 3:32 PM Abdomen/Pelvis CT 07/03/24 12:41 CT OF THE ABDOMEN AND PELVIS WITHOUT CONTRAST CLINICAL HISTORY: ?recurrent L psoas/retroperitoneal hematoma COMPARISON STUDY: CT of the abdomen and pelvis June 25, 2024. Renal ultrasound June 28, 2024. TECHNIQUE: Axial images of the abdomen and pelvis were obtained without IV contrast. Images were reviewed in the axial, sagittal, and coronal planes. Automated exposure control was utilized for the study. A dose lowering technique was utilized adhering to the principles of ALARA. FINDINGS: Visualized portions of the lower chest demonstrate small bilateral pleural effusions. Bilateral lower lobe airspace opacities, right greater than left, have increased since CT of June 25, 2024. Radiodensities within the right lower lobe are present. There are extensive secretions within the lower lobe bronchi, right greater than left. No pneumatosis, free air or portal venous gas is present. There is no left hydronephrosis. There is no abnormality within the right nephrectomy bed. A left flank percutaneous drain tract is noted. Mild stranding along the left psoas and iliacus muscles remains unchanged. No fluid collection is identified on unenhanced exam. There is no retroperitoneal hematoma. There is evidence for volume overload with presacral and body wall edema. The gallbladder is mildly distended. There is no pericholecystic infiltration. Splenomegaly is unchanged. Unenhanced images of the adrenal glands and pancreas are normal. There is no evidence for a bowel obstruction. There is no evidence for acute appendicitis. A Edwards balloon and gas within the bladder present. There is trace ascites. IMPRESSION: 1. No retroperitoneal hematoma. 2. No change in appearance of a left flank drain tract with stranding adjacent to the left psoas, iliacus and iliopsoas muscles. This may reflect phlegmon or fat necrosis. No fluid collection to suggest abscess. 3. Increase in bilateral lower lobe airspace opacities, right greater than left. Given extensive secretions within the bronchi, the findings may reflect aspiration pneumonitis. Atelectasis could appear similar. 4. Evidence for volume overload with body wall and presacral edema. Trace ascites. 5. Nondistended gallbladder. No pericholecystic infiltration. ACT 112: Negative or not required by law. Electronically signed by: Omari Foreman M.D. 07/03/2024 1:21 PM Medications Administered Home Medications Medication Instructions Recorded Confirmed Last Taken loratadine 10 mg tablet 10 mg PO DAILY PRN .runny nose #30 12/17/23 06/25/24 Unknown tabs tamsulosin 0.4 mg capsule 0.4 mg PO HS #30 caps 12/17/23 06/25/24 06/24/24 acetaminophen 325 mg tablet 650 mg PO Q6 PRN pain 1-8 01/18/24 06/25/24 06/18/24 (Tylenol) acetaminophen 325 mg tablet 650 mg PO Q6 PRN temp>100 01/18/24 06/25/24 06/25/24 16:40 (Tylenol) allopurinol 300 mg tablet 450 mg PO QAM 01/18/24 06/25/24 06/25/24 atorvastatin 80 mg tablet 80 mg PO HS 01/18/24 06/25/24 06/24/24 calcium 600 mg (as 1 tab PO [facility] 01/18/24 06/25/24 06/25/24 carbonate)-vitamin D3 20 mcg (800 AM unit) tablet (Caltrate with Vitamin D3) cholecalciferol (vitamin D3) 25 1,000 unit PO QAM 01/18/24 06/25/24 06/25/24 mcg (1,000 unit) tablet diclofenac sodium 1 % topical gel 4 g topical QID 01/18/24 06/25/24 06/25/24 docusate sodium 100 mg capsule 100 mg PO AMHS 01/18/24 06/25/2424 AM finasteride 5 mg tablet 5 mg PO QAM 01/18/24 06/25/24 06/25/24 furosemide 20 mg tablet 20 mg PO QAM 01/18/24 06/25/24 06/25/24 lactulose 10 gram/15 mL oral 45 ml PO TID 01/18/24 06/25/24 06/25/24 16:30 solution (Constulose) linagliptin 5 mg tablet (Tradjenta) 5 mg PO QAM 01/18/24 06/25/24 06/25/24 multivitamin 1 tab PO QAM 01/18/24 06/25/24 06/25/24 oxycodone 5 mg tablet 5 mg PO Q6 PRN SEVERE pain 9-01/18/24 06/25/24 06/25/24 07:55 pantoprazole 40 mg tablet,delayed 40 mg PO QAM 01/18/24 06/25/24 06/25/24 release phenytoin sodium extended 100 mg 600 mg PO BID 01/18/24 06/25/24 06/25/24 16:30 capsule (Dilantin Extended) potassium chloride 20 mEq 20 meq PO QAM 01/18/24 06/25/24 06/25/24 tablet,extended release(part/cryst) quetiapine 50 mg tablet (Seroquel) 50 mg PO HS 01/18/24 06/25/24 06/24/24 apixaban 5 mg tablet (Eliquis) 5 mg PO AMHS 06/11/24 06/25/24 06/25/24 AM divalproex 500 mg tablet,extended 1,000 mg PO AMHS 06/11/24 06/25/24 06/25/24 release 24 hr AM gabapentin 100 mg capsule 100 mg PO BID 06/11/24 06/25/24 06/25/24 glipizide 10 mg tablet 10 mg PO BID 06/11/24 06/25/24 06/25/24 16:30 rifaximin 550 mg tablet (Xifaxan) 550 mg PO BID #30 tabs 06/16/24 06/25/24 06/25/24 1630 divalproex 500 mg tablet,extended 500 mg PO .DAILY AT 1500 06/25/24 06/25/24 06/25/24 release 24 hr gabapentin 400 mg capsule 400 mg PO HS 06/25/24 06/25/24 06/24/24 promethazine 25 mg/mL injection 25 mg IM Q6 PRN N/V 06/25/24 06/25/24 06/23/24 solution topiramate 200 mg tablet 200 mg PO AMHS 06/25/24 06/25/24 06/25/24 AM Active Medications Generic Name Dose Route Start Last Admin Trade Name Jean Marie PRN Reason Stop Dose Admin Acetaminophen 650 mg 06/26/24 01:42 06/29/24 10:06 Acetaminophen 325 Mg Tab PO 07/26/24 01:41 650 mg Q6 PRN Administration temp>100 Allopurinol 100 mg 06/29/24 09:00 07/03/24 06:48 Allopurinol 100 Mg Tab PO 07/29/24 08:59 Not Given QAM [facility] Atorvastatin Calcium 80 mg 06/26/24 21:00 07/02/24 19:14 Atorvastatin 40 Mg Tab PO 07/26/24 20:59 Not Given HS [facility] Calcium/Vitamin D 1 tab 06/26/24 09:00 07/03/24 06:48 Calcium 600mg + Vit D 400 Iu Tab PO 07/26/24 08:59 Not Given AM[facility] Divalproex Sodium 1,000 mg 06/26/24 09:00 06/29/24 10:07 Divalproex Extended Release 500 Mg Tab PO 07/26/24 08:59 1,000 mg AMHS [facility] Administration Divalproex Sodium 500 mg 06/26/24 15:00 06/29/24 15:25 Divalproex Extended Release 500 Mg Tab PO 07/26/24 14:59 500 mg DAILY@1500 [facility] Administration Docusate Sodium 100 mg 06/26/24 09:00 07/03/24 06:48 Docusate Sodium 100 Mg Cap PO 07/26/24 08:59 Not Given AMHS [facility] Finasteride 5 mg 06/26/24 09:00 07/03/24 06:48 Finasteride 5 Mg Tab PO 07/26/24 08:59 Not Given QAM [facility] Gabapentin 400 mg 06/26/24 21:00 06/27/24 19:50 Gabapentin 400 Mg Cap PO 07/26/24 20:59 400 mg HS [facility] Administration Gabapentin 100 mg 06/26/24 08:30 07/03/24 08:26 Gabapentin 100 Mg Cap PO 07/26/24 08:29 Not Given BID@0830,1630 [facility] Thiamine HCl 200 mg/ Sodium 52 mls @ 210 mls/hr 06/29/24 09:00 07/03/24 08:24 Chloride IV 07/29/24 08:59 Infused QAM [facility] Infusion Valproic Acid 600 mg/ Dextrose 56 mls @ 55 mls/hr 06/29/24 19:00 07/03/24 14:10 IV 07/29/24 18:59 55 mls/hr Q6H [facility] Administration Phenytoin 400 mg/ Sodium 58 mls @ 116 mls/hr 06/29/24 19:00 07/03/24 14:02 Chloride IV 07/29/24 18:59 Infused Q8H [facility] Infusion Acetaminophen 1,000 mg in 100 mls @ 400 mls/hr 07/01/24 14:42 07/02/24 17:57 Ofirmev IV 07/04/24 14:41 Infused Q8H PRN Infusion fever/pain Piperacillin Sod/Tazobactam Sod 4.5 gm in 100 mls @ 25 mls/hr 07/03/24 09:00 07/03/24 13:14 Zosyn IV 07/10/24 08:59 Infused Q12H [facility] Infusion Protocol Insulin Aspart 0 units 07/02/24 12:00 07/03/24 13:43 Insulin Aspart Per Unit Charge SC 08/01/24 11:59 Not Given Q6 [facility] Lactulose 30 gm 06/26/24 09:00 07/03/24 08:26 Lactulose Syrup 30 Gm/45 Ml Udp PO 07/26/24 08:59 Not Given TID [facility] Multivitamins 1 tab 06/26/24 09:00 07/03/24 06:48 Multivitamin Tab PO 07/26/24 08:59 Not Given QAM [facility] Oxycodone HCl 5 mg 06/26/24 01:42 06/29/24 09:39 Oxycodone Hcl Ir 5 Mg Tab (Immediate Release) PO 07/10/24 01:41 5 mg Q6 PRN Administration SEVERE pain 9-10 Pantoprazole Sodium 40 mg 06/26/24 09:00 07/03/24 06:48 Pantoprazole 40 Mg Tab PO 07/26/24 08:59 Not Given QAM [facility] Phenytoin Sodium 600 mg 06/26/24 08:30 06/29/24 17:28 Phenytoin Sodium Er 100 Mg Cap PO 07/26/24 08:29 Not Given BID@0830,1630 [facility] Quetiapine Fumarate 50 mg 06/26/24 21:00 07/02/24 19:14 Quetiapine Fumarate 25 Mg Tablet PO 07/26/24 20:59 Not Given HS [facility] Rifaximin 550 mg 06/26/24 08:30 07/03/24 08:27 Rifaximin 550 Mg Tablet PO 07/26/24 08:29 Not Given BID@0830,1630 [facility] Sodium Chloride 20 ml 06/29/24 19:00 07/03/24 13:43 Sodium Chloride 0.9% 10ml Flush IV 07/29/24 18:59 20 ml Q8H [facility] Administration Tamsulosin HCl 0.4 mg 06/26/24 21:00 07/02/24 19:14 Tamsulosin Hcl 0.4 Mg Cap PO 07/26/24 20:59 Not Given HS [facility] Topiramate 200 mg 06/26/24 09:00 07/03/24 06:49 Topiramate 100 Mg Tab PO 07/26/24 08:59 Not Given AMHS [facility] Vitamin D 25 mcg 06/26/24 09:00 07/03/24 06:48 Cholecalciferol 25 Mcg (1000 Units) Tab PO 07/26/24 08:59 Not Given QAM [facility]
[2024-07-03] MEDS: cefTRIAXone SODIUM 2,000 MG/50 ML BAG IV SCH (16:11)
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
[2024-07-03 18:19] LABS: Hematocrit (blood only) 22.4 % (42.0-52.0); Hemoglobin 7.6 g/dl (14.0-18.0)
--- NOTE | 2024-07-03 23:10 | CT Scan Report ---
Exam(s): CT HEAD Without Contrast EXAM: CT Head Without Intravenous Contrast CLINICAL HISTORY: Persistent encephalopathy. TECHNIQUE: Axial computed tomography images of the head/brain without intravenous contrast. CTDI is 27.56 mGy and DLP is 390.07 mGy-cm. Automated exposure control was utilized for the study. A dose lowering technique was utilized adhering to the principles of ALARA. COMPARISON: CT head 01/24/2024 FINDINGS: Brain: No intracranial hemorrhage, mass-effect or midline shift. No abnormal extra axial fluid. No evidence of acute infarct. Mild periventricular white matter hypodensities are most consistent with chronic microangiopathy. Ventricles: Unremarkable. No ventriculomegaly. Bones/joints: Unremarkable. No acute fracture. Soft tissues: Unremarkable. Sinuses: Unremarkable as visualized. No acute sinusitis. Mastoid air cells: Trace left mastoid effusion. IMPRESSION: No acute intracranial finding. Electronically signed by: Reshma Sevilla MD 07/03/24 23:08 PM
[2024-07-03] MEDS: DAPTOmycin 375 MG in SYRINGE 0 ML IV SCH (23:35)
[2024-07-03] MEDS: ACETAMINOPHEN 1,000 MG/100 ML VIAL IV SCH (23:35)
[2024-07-04 03:15] LABS: Basophils # (auto) 0.03 K/uL (0.00-0.20); Basophils % (auto) 0.3 %; Eosinophils # (auto) 0.34 K/uL (0.00-0.50); Eosinophils % (auto) 3.8 %; Hematocrit (blood only) 20.9 % (42.0-52.0); Hemoglobin 7.2 g/dl (14.0-18.0); Immature Granulocytes # (auto) 0.19 K/uL (0.01-0.20); Immature Granulocytes % (auto) 2.1 %; Lymphocytes # (auto) 1.35 K/uL (1.20-3.40); Lymphocytes % (auto) 15.2 %; Mean Corpuscular Hemoglobin 31.3 pg (25.0-34.0); Mean Corpuscular Hgb Conc 34.4 g/dL (32.0-36.0); Mean Corpuscular Volume 90.9 fL (80.0-100.0); Mean Platelet Volume 10.2 fL (9.4-12.4); Monocytes # (auto) 0.74 K/uL (0.11-0.59); Monocytes % (auto) 8.3 %; Neutrophils # (auto) 6.26 K/uL (1.40-6.50); Neutrophils % (auto) 70.3 %; Platelet Count 59 K/uL (130-400); RBC Morphology Unremarkable; RDW Coefficient of Variation 14.1 % (11.5-14.5); RDW Standard Deviation 46.1 fL (36.4-46.3); Reticulocyte % 1.37 % (0.50-2.00); White Blood Count 8.91 K/ul (4.8-10.8)
[2024-07-04 09:55] LABS: Hematocrit (blood only) 20.2 % (42.0-52.0)
[2024-07-04 10:04] LABS: BUN Creatinine Ratio 8.1 (10-20); Calcium 7.5 mg/dl (8.6-10.3); Creatinine Clr Calc Pharmacy 27.1 ml/min; Potassium 3.4 mmol/L (3.5-5.1)
[2024-07-04] MEDS ORDERED: SODIUM CHLORIDE 0.9% 50 ML IV PRN (10:05)
[2024-07-04] MEDS ORDERED: SODIUM CHLORIDE 0.9% 100 ML IV PRN (10:05)
--- NOTE | 2024-07-04 13:26 | Nephrology Progress Note ---
Date of Service July 04, 2024 Assessment & Plan (1) KEYANNA (acute kidney injury): Plan: KEYANNA attributed to ATN. R IJ HD cath placed at the bedside 06/30. First HD treatment completed 06/30. Completed HD yesterday with adequate UF and clearance. Electrolytes controlled and volume status acceptable. Non-oliguric. HD catheter has been functioning well. If there are no signs of renal recovery over the next few days, permcath placement will need to be considered. Unfortunately, Eliseo remains severely encephalopathic and confused. He does not understand the dialysis procedure and frequently is pulling at lines when not in restraints. Medications are appropriate for kidney function. (2) Altered mental status: Plan: Persistent encephalopathy. HD completed with restraints. Concerns have been discussed with family. (3) Anemia: Plan: No findings of TMA on smear. Etiology unclear. PRBC support provided with HD yes terday. Additional PRBC support pending. Transfer to [facility] [place] pending. Admission and Anticipated Discharge Date Admission Date: June 25, 2024 Subjective Completed HD yesterday with net 1 L UF. Resting comfortably in bed this AM. Remains severely encephalopathic and not communicating. Afebrile. Oxygenating well on room air. Anticipated transfer to [facility] pending. Review of Systems Review of Systems: Unobtainable due to cognitive status Physical Exam Constitutional: well developed, + ill appearing, + altered mental status and + frail appearing; no acute distress Eyes: + anicteric sclerae; no conjunctival abn ormality ENMT: Mouth: no oral mucosal abnormality and oral mucous membranes not dry Neck: normal visual inspection and trachea midline Respiratory: normal respiratory effort Auscultation: lungs clear to auscultation bilaterally and + rhonchi Cardiovascular: Rate/Rhythm: regular rate Heart Sounds: normal S1 and normal S2 Extremities: + edema (+1 BL LE) Musculoskeletal: Extremities: no cyanosis and no clubbing Skin: normal turgor; no jaundice Neurologic: Motor/Sensory: no fasciculations and no asterixis Psychiatric: Orientation: + not oriented x 3 Results & Data Vital Signs (Past 12 Hours) Vital Signs Temp Pulse Pulse Resp BP Pulse Ox O2 Del Method 07/04/24 13:00 36.5 C 88 12 109/52 L 99 Room Air 07/04/24 08:00 37.1 C 92 H 16 133/75 97 Room Air 07/04/24 08:00 Room Air 07/04/24 07:23 96 H 07/04/24 03:25 37.0 C 108 H 21 110/58 L 98 Room Air Laboratory Results Laboratory Results - last 24 hr 06/28/24 07/03/24 07/03/24 18:26 09:13 13:41 WBC RBC Hgb Hct MCV MCH MCHC RDW Std Deviation RDW Coeff of Pepper Plt Count MPV Immature Gran % (Auto) Neut % (Auto) Lymph % (Auto) [place] % (Auto) Eos % (Auto) Baso % (Auto) Reticulocyte % (Auto) Neut # (Auto) Lymph # (Auto) [place] # (Auto) Eos # (Auto) Baso # (Auto) Reticulocyte # Immature Gran # (Auto) RBC Morphology Sodium Potassium Chloride Carbon Dioxide Anion Gap BUN Creatinine Est Cr Clr Drug Dosing eGFR BUN/Creatinine Ratio Glucose POC Glucose 128 H Calcium Total Creatine Kinase [place] UFH Low Dose 0.1 0 [place] UFH Low Dose 0.5 0 [place] UFH High Dose 0 [place] Unfract Heparin Negative Miscellaneous Test Blood Type Cancelled Rho(D) Type Cancelled Antibody Screen Cancelled Antibody Identification Antibody ID Referred Crossmatch See Detail 07/03/24 07/03/24 07/03/24 14:15 15:55 17:19 WBC RBC Hgb 7.8 L Hct MCV MCH MCHC RDW Std Deviation RDW Coeff of Pepper Plt Count MPV Immature Gran % (Auto) Neut % (Auto) Lymph % (Auto) [place] % (Auto) Eos % (Auto) Baso % (Auto) Reticulocyte % (Auto) Neut # (Auto) Lymph # (Auto) [place] # (Auto) Eos # (Auto) Baso # (Auto) Reticulocyte # Immature Gran # (Auto) RBC Morphology Sodium Potassium Chloride Carbon Dioxide Anion Gap BUN Creatinine Est Cr Clr Drug Dosing eGFR BUN/Creatinine Ratio Glucose POC Glucose 173 H Calcium Total Creatine Kinase [place] UFH Low Dose 0.1 [place] UFH Low Dose 0.5 [place] UFH High Dose [place] Unfract Heparin Miscellaneous Test Pending Blood Type Rho(D) Type Antibody Screen Antibody Identification Antibody ID Referred Crossmatch 07/03/24 07/03/24 07/04/24 17:59 23:43 02:04 WBC 8.91 RBC 2.30 L Hgb 7.6 L 7.2 L Hct 22.4 L 20.9 L* MCV 90.9 MCH 31.3 MCHC 34.4 RDW Std Deviation 46.1 RDW Coeff of Pepper 14.1 Plt Count 59 L MPV 10.2 Immature Gran % (Auto) 2.1 Neut % (Auto) 70.3 Lymph % (Auto) 15.2 [place] % (Auto) 8.3 Eos % (Auto) 3.8 Baso % (Auto) 0.3 Reticulocyte % (Auto) 1.37 Neut # (Auto) 6.26 Lymph # (Auto) 1.35 [place] # (Auto) 0.74 H Eos # (Auto) 0.34 Baso # (Auto) 0.03 Reticulocyte # 0.030 Immature Gran # (Auto) 0.19 RBC Morphology Unremarkable Sodium Potassium Chloride Carbon Dioxide Anion Gap BUN Creatinine Est Cr Clr Drug Dosing eGFR BUN/Creatinine Ratio Glucose POC Glucose 140 H Calcium Total Creatine Kinase [place] UFH Low Dose 0.1 [place] UFH Low Dose 0.5 [place] UFH High Dose [place] Unfract Heparin Miscellaneous Test Blood Type Rho(D) Type Antibody Screen Antibody Identification Antibody ID Referred Crossmatch 07/04/24 07/04/24 07/04/24 06:16 09:27 10:22 WBC RBC Hgb 7.0 L Hct 20.2 L* MCV MCH MCHC RDW Std Deviation RDW Coeff of Pepper Plt Count MPV Immature Gran % (Auto) Neut % (Auto) Lymph % (Auto) [place] % (Auto) Eos % (Auto) Baso % (Auto) Reticulocyte % (Auto) Neut # (Auto) Lymph # (Auto) [place] # (Auto) Eos # (Auto) Baso # (Auto) Reticulocyte # Immature Gran # (Auto) RBC Morphology Sodium 145 Potassium 3.4 L Chloride 110 H Carbon Dioxide 21 Anion Gap 14 H BUN 27 H Creatinine 3.34 H D Est Cr Clr Drug Dosing 27.1 eGFR 19.65 BUN/Creatinine Ratio 8.1 L Glucose 140 H POC Glucose 139 H Calcium 7.5 L Total Creatine Kinase 14 L [place] UFH Low Dose 0.1 [place] UFH Low Dose 0.5 [place] UFH High Dose [place] Unfract Heparin Miscellaneous Test Blood Type A Positive Rho(D) Type Antibody Screen NEGATIVE Antibody Identification Pending Antibody ID Referred Pending Crossmatch See Detail 07/04/24 12:37 WBC RBC Hgb Hct MCV MCH MCHC RDW Std Deviation RDW Coeff of Pepper Plt Count MPV Immature Gran % (Auto) Neut % (Auto) Lymph % (Auto) [place] % (Auto) Eos % (Auto) Baso % (Auto) Reticulocyte % (Auto) Neut # (Auto) Lymph # (Auto) [place] # (Auto) Eos # (Auto) Baso # (Auto) Reticulocyte # Immature Gran # (Auto) RBC Morphology Sodium Potassium Chloride Carbon Dioxide Anion Gap BUN Creatinine Est Cr Clr Drug Dosing eGFR BUN/Creatinine Ratio Glucose POC Glucose 142 H Calcium Total Creatine Kinase [place] UFH Low Dose 0.1 [place] UFH Low Dose 0.5 [place] UFH High Dose OLIM[place] Unfract Heparin Miscellaneous Test Blood Type Rho(D) Type Antibody Screen Antibody Identification Antibody ID Referred Crossmatch PG Care Time/CCT Total # of Minutes Spent Total Time Spent with Patient: Total time spent is greater than 50% in coordination of care (as documented) at patient's floor/unit and/or counseling patient: Coding Level of Care Code 18858 SUB INP/OBS CARE 3/50MIN Diagnoses KEYANNA (acute kidney injury) N17.9 Altered mental status R41.82 Anemia D64.9
[2024-07-04] MEDS: INSULIN ASPART PER UNIT CHARGE SC SCH ×2 (13:55→17:46)
--- NOTE | 2024-07-04 22:33 | Hospitalist Progress Note ---
Date of Service July 04, 2024 Assessment & Plan (1) Goals of care, counseling/discussion: Plan: ON 07/03 a conversation over 35-45 minutes with patient's Sister Molly, other face sister Karen, [id number] Manan, and other brother in law Ed regarding Eliseo's progression, goals of care, and workup. They report that prior to this hospitalization Eliseo was relatively well, would follow commands, and goal with current hospitalization is for him to return to his prior state of usual health which included general independence and normal conversational ability Discussed multiple challenges that he has had including infection, continued bleeding, kidney injury with progression to dialysis, and now complicated by DVT with anticoagulation limited by ongoing bleeding. They report that when he had been given paperwork in the past to clarify his wishes and medical desires that he had given it to his sister because he was scared that he would not fill it out correctly and his goal is "to live ". Had not considered the quality of life versus length of life trade off of aggressive interventions at that time however would like to hear the potential risks of benefits of all options including a potential IVC filter told minimize the risk of clot migration to cause of PE. They understand that progression to a PE would likely be a catastrophic event with Eliseo's level of illness and current frailty. No like to see how he does today and this weekend, would consider a palliative care consultation perhaps on Saturday but for now would like to see how he does with current treatment and hear about the potential risk/benefits of a filter from the vascular team. Reviewed renal progression. KEYANNA suspected ATN but with no evidence of renal recovery. Patient is extremely confused/agitated very disproportionate with his baseline. BUN is elevated although not substantially so. Ammonia was not significantly elevated. Hemoglobin is low again today. Could consider an MRI to evaluate for nonmetabolic causes of his mental status change however lower yield for this given that he does not show other focal neurologic deficits at time of assessment. While conditions such as PSP are not ruled out, currently he would require sedation to undergo an MRI and risks outweigh the benefits well patient is treated for his ESRD, infection, and anemia. (2) Psoas abscess, left: Plan: History of left psoas and retroperitoneal hematoma complicated by abscess s/p drainage 01/2024 Admitted 05/12 - 06/16 for purulent discharge from the back was treated with Augmentin. Images have drainage from this location. Surgery/IR reviewed, no areas amenable to surgical or IR drainage Zosyn/daptomycin continued. Atorvastatin held while on daptomycin TTE ruled out vegetations although technically difficult study 06/27/2024 blood cultures: No growth at 5 days 06/27/2024 wound/back of surface cultures with no growth to date UCx 06/27/2024 no growth last less than 1000 CFU's Associated with sepsis and the patient has leukocytosis and borderline hypotension, fever Patient was considered for both MRIbrain due to persistent encephalopathy and MRI lumbar spine however would need to be sedated for this and risks currently outweigh the benefits -Continue antibiotics, allow tract to close by secondary intention Anticoagulation held due to anemia, thrombocytopenia. HIT previously suspe cted, this was ruled out earlier in admission but remains with downtrending hemoglobin requiring transfusion 06/30, 07/01: Required dialysis for metabolic acidosis and fluid overload 07/01 & 07/03 +1 unit of PRBC for anemia 07/03: Repeat CTIs without abscess, fistula, expanding hematoma, retroperitoneal bleed. Degree of anemia and transfusion is inconsistent with the amount of output from his wound, and she has no evidence of GI bleeding. Will order a reticulocyte count for [employer] wound cultures reordered - Continue Abx through 07/09 minimum. Per ID targeting doxy/cefpodoixime as tra nsition choice, currently PO is limited by ability to swallow. Pip-tazo switched to Rocephin due to due to thrombocytopenia. This will continue on 07/04 (3) Encephalopathy: Plan: Multifactorial. Differential includes metabolic cephalopathy with parainfluenza and psoas infection, hepatic encephalopathy although ammonia level normal, no evidence of seizure, and encephalopathy of critical illness. Patient is on dialysis BUN is elevated but not critically so MRI limited by mental status risks outweigh benefits of sedated MRI given frailty at this time UA negative (4) Acute on chronic respiratory failure with hypoxemia: Plan: With history of hypoxia, 07/03 is saturating 98% on room air Patient was on heparin GTT for DVT of the left lower extremity, findings favoring acute on chronic DVT. Heparin gtt. subsequently held due to progressive anemia and recurrent need for transfusion Some underlying element of WILDER, PPV at bedtime Patient is at high risk of PE. Fortunately is not hypoxic, although has been intermittently transiently tachycardic Discussed potential for catastrophic PE given acute on chronic DVT and his medical frailty, goals of care as above. Pending evaluation for filter (5) KEYANNA (acute kidney injury): Plan: Solitary left kidney Creatinine continues to rise, 3.49 to 4.49 on 07/03/2020 Chest x-ray with small effusions and pulmonary edema consistent with mild volume overload Previously 120 mg of IV Lasix with minimal diuretic response Has required dialysis x 2. Creatinine continues to rise 07/03, potassium 3.7. Patient wet sounding but without critical volume overload. Anticipate dialysis today with 1 unit PRBC to be given during dialysis (6) Parainfluenza type 1 infection: Plan: Respiratory bio fire came back positive for parainfluenza 1 Isolation precautions Supportive treatment (7) DVT (deep venous thrombosis): Plan: -Patient was on p.o. Eliquis -[facility] was at [facility]. Likely good compliance at that time -Currently has an acute on chronic left lower extremity DVT -Eliquis discontinued, was switched to heparin gtt. however concern for HIT and was transiently on argatroban. HIT subsequently ruled out - Anticoagulation continues to remain held due to intramuscular hematoma (this was traumatic, not spontaneous although occurred while on anticoagulation), continued drop in hemoglobin and ongoing anemia CT 07/03 does not show any expanding hematoma/retroperitoneal bleed Vascular surgery consulted for evaluation for potential vena cava filter due to DVT with ongoing transfusion dependence (8) assisted current use of anticoagulant: (9) Seizure disorder: Plan: - Continue home valproate, phenytoin, Topamax Valproic level 36, slightly subtherapeutic but no signs of seizure activity on clinical assessment (10) T2DM (type 2 diabetes mellitus): Plan: Hold home medications Continue sliding scale Plan Full code Admission and Anticipated Discharge Date Admission Date: June 25, 2024 Subjective Patient remains confused. Physical Exam Physical Exam: General: Awake, confused. Heart: S1, S2/regular rate and rhythm, no murmur rubs or gallops Lungs: Clear to auscultation bilaterally. Normal effort Abdomen: Soft/nontender/nondistended. No hepatosplenomegaly. Purulent drainage from left back cutaneous lesion Extremities: No clubbing/cyanosis. Left lower extremity edema Behavior: cooperative Purulent draiange from small opening on back. Results & Data Results & Data Vital Signs (Past 12 Hours) Vital Signs Temp Pulse Resp BP Pulse Ox O2 Del Method 11/30/24 19:26 36.6 C 87 18 119/65 98 Room Air 07/04/24 16:00 36.5 C 89 20 124/60 97 Room Air 07/04/24 13:00 36.5 C 88 12 109/52 L 99 Room Air PG Care Time/CCT Total # of Minutes Spent Total Time Spent with Patient: Total time spent is greater than 50% in coordination of care (as documented) at patient's floor/unit and/or counseling patient: Coding Level of Care Code 90289 SUB INP/OBS CARE 2/35MIN Diagnoses Goals of care, counseling/discussion Z71.89 Psoas abscess, left K68.12 Encephalopathy G93.40 Acute on chronic respiratory failure with hypoxemia J96.21 KEYANNA (acute kidney injury) N17.9 Parainfluenza type 1 infection B34.8 DVT (deep venous thrombosis) I82.409 assisted current use of anticoagulant Z79.01 Seizure disorder G40.909 T2DM (type 2 diabetes mellitus) E11.9
[2024-07-05 06:30] LABS: Basophils # (auto) 0.02 K/uL (0.00-0.20); Basophils % (auto) 0.3 %; Eosinophils # (auto) 0.74 K/uL (0.00-0.50); Eosinophils % (auto) 10.5 %; Hematocrit (blood only) 23.5 % (42.0-52.0); Hemoglobin 8.1 g/dl (14.0-18.0); Immature Granulocytes # (auto) 0.32 K/uL (0.01-0.20); Immature Granulocytes % (auto) 4.6 %; Lymphocytes # (auto) 1.59 K/uL (1.20-3.40); Lymphocytes % (auto) 22.6 %; Mean Corpuscular Hemoglobin 31.2 pg (25.0-34.0); Mean Corpuscular Hgb Conc 34.5 g/dL (32.0-36.0); Mean Corpuscular Volume 90.4 fL (80.0-100.0); Mean Platelet Volume 10.1 fL (9.4-12.4); Monocytes # (auto) 0.36 K/uL (0.11-0.59); Monocytes % (auto) 5.1 %; Neutrophils # (auto) 3.99 K/uL (1.40-6.50); Neutrophils % (auto) 56.9 %; Nucleated RBC # (auto) 0.03 K/uL (0.00-0.12); Nucleated RBC % (auto) 0.4 %; Platelet Count 70 K/uL (130-400); RDW Coefficient of Variation 14.4 % (11.5-14.5); RDW Standard Deviation 46.9 fL (36.4-46.3); White Blood Count 7.02 K/ul (4.8-10.8)
[2024-07-05 06:46] LABS: C Reactive Protein 14.53 mg/dl (0-0.5); Calcium 7.5 mg/dl (8.6-10.3); Creatinine Clr Calc Pharmacy 22.7 ml/min; Potassium 3.3 mmol/L (3.5-5.1)
--- NOTE | 2024-07-05 12:42 | Nephrology Progress Note ---
Date of Service July 05, 2024 Assessment & Plan (1) KEYANNA (acute kidney injury): Plan: KEYANNA attributed to ATN. R IJ HD cath placed at the bedside 06/30. First HD treatment completed 06/30. Completed HD 07/03 with adequate UF and clearance. Electrolytes controlled and volume status acceptable. Non-oliguric. Creatinine rising between treatments. HD catheter has been functioning well. If there are no signs of renal recovery over the next few days, permcath placement should be considered. Unfortunately, Eliseo remains severely encephalopathic. His overall prognosis is poor. He does not tolerate dialysis well and does not understand the dialysis procedure. He is frequently pulling at lines when not in restraints. My reservations regarding continuing dialysis were discussed with the family today. They remains hopeful that Eliseo will improve. Medications are appropriate for kidney function. (2) Altered mental status: Plan: Persistent encephalopathy. HD completed with restraints. Concerns have been discussed with family. (3) Anemia: Plan: No findings of TMA on smear. Etiology unclear. PRBC support provided with HD yesterday. Additional PRBC support provided overnight. Transfer to [facility] [place] pending. Admission and Anticipated Discharge Date Admission Date: June 25, 2024 Subjective Eliseo was seen and evaluated twice this AM. My second evaluation was to meet with his family at the bedside. I had a long conversation with his sister (Lo) and explained my concerns. Eliseo remains encephalopathic. He does not demonstrate any comprehension. Soft restraints have been required for agitation, notably to prevent pulling at lines and tubes. Eliseo has not tolerated HD well due to agitation and confusion. He was resting comfortably in bed during my conversation with the family. They remain hopeful to see improvement. Lo reports that Eliseo was alert, oriented and able to carry on a conversation prior to hospitalization. My physical exam was limited due to patient agitation each t herminio I tried to touch him. He will open his eyes to my voice but will not make eye contact or demonstrate any understanding. There is no obvious source of pain. He has remained afebrile. Edwards is draining clear yellow urine. Eliseo remains non-oliguric. Review of Systems Review of Systems: Unobtainable due to cognitive status Physical Exam Constitutional: + acute distress, + ill appearing, + alt ered mental status and + frail appearing Eyes: + anicteric sclerae; no conjunctival abn ormality ENMT: Mouth: no oral mucosal abnormality and oral mucous membranes not dry Neck: normal visual inspection and trachea midline Respiratory: normal respiratory effort Auscultation: lungs clear to auscultation bilaterally and + rhonchi Cardiovascular: Rate/Rhythm: regular rate Heart Sounds: normal S1 and normal S2 Extremities: + edema (+1 BL LE) Musculoskeletal: Extremities: no cyanosis and no clubbing Skin: normal turgor; no jaundice Neurologic: Motor/Sensory: no tremor and no asterixis Psychiatric: Orientation: + not oriented x 3 and + uncooperative Results & Data Vital Signs (Past 12 Hours) Vital Signs Temp Pulse Pulse Resp BP BP Pulse Ox 07/05/24 12:00 36.4 C L 76 16 133/69 98 07/05/24 08:00 36.4 C L 78 12 129/75 99 07/05/24 08:00 07/05/24 06:44 75 07/05/24 06:00 36.4 C L 79 18 130/72 98 07/05/24 05:00 36.5 C 79 18 106/63 97 07/05/24 04:00 36.5 C 80 18 114/66 97 07/05/24 03:30 36.6 C 83 18 111/58 L 97 07/05/24 03:15 36.4 C L 79 19 102/59 L 99 07/05/24 03:15 36.4 C L 79 18 102/59 L 99 07/05/24 02:59 36.7 C 83 16 107/61 97 O2 Del Method 07/05/24 12:00 Room Air 07/05/24 08:00 Room Air 07/05/24 08:00 Room Air 07/05/24 06:44 07/05/24 06:00 07/05/24 05:00 07/05/24 04:00 07/05/24 03:30 07/05/24 03:15 07/05/24 03:15 07/05/24 02:59 Laboratory Results Laboratory Results - last 24 hr 07/04/24 07/04/24 07/04/24 10:22 12:37 17:34 WBC RBC Hgb Hct MCV MCH MCHC RDW Std Deviation RDW Coeff of Pepper Plt Count MPV Immature Gran % (Auto) Neut % (Auto) Lymph % (Auto) [place] % (Auto) Eos % (Auto) Baso % (Auto) Neut # (Auto) Lymph # (Auto) [place] # (Auto) Eos # (Auto) Baso # (Auto) Immature Gran # (Auto) Absolute Nucleated RBC Nucleated RBC % (auto) Sodium Potassium Chloride Carbon Dioxide Anion Gap BUN Creatinine Est Cr Clr Drug Dosing eGFR BUN/Creatinine Ratio Glucose POC Glucose 142 H 150 H Calcium C-Reactive Protein Procalcitonin Blood Type A Positive Antibody Screen NEGATIVE Antibody Identification Unknown Antibody Crossmatch See Detail 07/04/24 07/05/24 07/05/24 20:20 05:54 08:33 WBC 7.02 RBC 2.60 L Hgb 8.1 L Hct 23.5 L MCV 90.4 MCH 31.2 MCHC 34.5 RDW Std Deviation 46.9 H RDW Coeff of Pepper 14.4 Plt Count 70 L MPV 10.1 Immature Gran % (Auto) 4.6 Neut % (Auto) 56.9 Lymph % (Auto) 22.6 [place] % (Auto) 5.1 Eos % (Auto) 10.5 Baso % (Auto) 0.3 Neut # (Auto) 3.99 Lymph # (Auto) 1.59 [place] # (Auto) 0.36 Eos # (Auto) 0.74 H Baso # (Auto) 0.02 Immature Gran # (Auto) 0.32 H Absolute Nucleated RBC 0.03 Nucleated RBC % (auto) 0.4 Sodium 142 Potassium 3.3 L Chloride 107 Carbon Dioxide 25 Anion Gap 10 BUN 32 H Creatinine 3.99 H D Est Cr Clr Drug Dosing 22.7 eGFR 15.87 BUN/Creatinine Ratio 8.0 L Glucose 115 H POC Glucose 130 H 131 H Calcium 7.5 L C-Reactive Protein 14.53 H Procalcitonin 26.90 H Blood Type Antibody Screen Antibody Identification Crossmatch PG Care Time/CCT Total # of Minutes Spent Total Time Spent with Patient: Total time spent is greater than 50% in coordination of care (as documented) at patient's floor/unit and/or counseling patient: Coding Level of Care Code 35865 SUB INP/OBS CARE 3/50MIN Diagnoses KEYANNA (acute kidney injury) N17.9 Altered mental status R41.82 Anemia D64.9
[2024-07-05 19:55] VITALS: BP 116/62; PULSE 85; RESP 18; TEMP 99; O2SAT 99
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
== END 2024-07-05 20:15 | disposition short-term general hospital (02) | DRG 871 ==
LOC: ED 17:58 → SUATTDRO 23:35 → 2W 23:35 → 1E 06-28 16:35 → 2N 06-29 12:34